=== PATIENT | male | born 1940 | race Caucasian/White ===

== ENCOUNTER → 2016-03-18 | Outpatient (CLI) | payer MEDICARE ==
[~2016-03-18] MED LIST: ASP325T PO; ASP81TEC PO; CALC-656 PO; CHOL10003 PO; CHOL2000 PO; CLON1TAB3 PO; DIGO250T PO; DILT120C PO; DILT360C30 PO; DILT360C36 PO; DULO60CA58 PO; FNT100TD TD; FURO20TA4 PO; HYDR-3816 PO; LISI1TAB PO; LISI20TA PO; MELO-195 PO; METH500T5 PO; METO25TA2 PO; MILN100T PO; MONT10TA24 PO; MULT-608 PO; MULT-72 PO; MULT-974 PO; OMEG-12 PO; OMEG1CAP51 PO; OMEP40CA36 PO; OXYC-188 PO; OXYC-471 PO; POLY119P PO; PRAV10TA PO; PRAV10TA23 PO; TEST200V3 IM; TMSL.4C PO; TMZP15C PO; TRAM50TA2 PO; ZLP10T PO; [UNRECOGNIZED DRUG - CODE] OD
== END ==
LOC: LAB 09:37
PROVIDERS: ATTEND Nurse Practitioner Family
DX: J40 Bronchitis, not specified as acute or chronic (principal)
CPT/HCPCS: 87070; 87077; 87186; 87205

== ENCOUNTER 2016-04-10 12:23 | Outpatient (RCR) | payer MEDICARE | END 2016-07-09 | disposition home or self-care (01) | LOC: LAB 12:23 | PROVIDERS: ATTEND Nurse Practitioner Family | DX: J15.0 Pneumonia due to Klebsiella pneumoniae (principal) | CPT/HCPCS: 87070; 87205 ==

== ENCOUNTER 2016-06-05 14:30 | Outpatient (RCR) | payer MEDICARE | END 2016-06-22 | disposition home or self-care (01) | LOC: PULM 14:30 | PROVIDERS: ATTEND Nurse Practitioner Family | DX: J40 Bronchitis, not specified as acute or chronic (principal); R09.02 Hypoxemia; Z87.891 Personal history of nicotine dependence | CPT/HCPCS: 99211 ==

== ENCOUNTER → 2016-10-06 | Outpatient (CLI) | payer MEDICARE ==
[~2016-10-06] MED LIST changes: +MULT-500 PO; -MULT-72 PO
--- NOTE | 2016-10-06 13:45 | Diagnostic Imaging Report ---
PROCEDURE: CT chest without contrast. TECHNIQUE: Multiple contiguous axial images were obtained through the chest without the use of intravenous contrast. INDICATION: History of right thoracotomy, COPD and hypoxemia. COMPARISON: Comparison made with prior examination from 10/02/2015. FINDINGS: There are diffuse emphysematous changes in both lungs. There is no pleural or pericardial fluid. There is interstitial scarring in the bases. There is no pneumothorax. No discrete nodules are appreciated. There is no pathologically enlarged adenopathy in the chest. There are degenerative changes in the spine. The visualized intra-abdominal structures are unremarkable. IMPRESSION: Severe bullous emphysematous disease with bibasilar interstitial scarring. No discrete pulmonary nodules or masses. Dictated by: Dictated on workstation # [id number]
== END ==
LOC: RAD 10:18
PROVIDERS: ATTEND Nurse Practitioner Family
DX: J43.9 Emphysema, unspecified (principal); J84.9 Interstitial pulmonary disease, unspecified
CPT/HCPCS: 71250

== ENCOUNTER → 2016-12-05 | Outpatient (CLI) | payer MEDICARE | LOC: CARD 09:50 | PROVIDERS: ATTEND Physician Assistant | DX: E11.9 Type 2 diabetes mellitus without complications (principal); I10 Essential (primary) hypertension; E78.2 Mixed hyperlipidemia; I47.2 Ventricular tachycardia; I48.0 Paroxysmal atrial fibrillation | CPT/HCPCS: 93306 ==

== ENCOUNTER 2017-02-03 10:00 | Outpatient (CLI) | payer MEDICARE | END 2017-02-03 10:27 | disposition home or self-care (01) | LOC: SLEEP 10:00 | PROVIDERS: ATTEND Nurse Practitioner Family | DX: G47.33 Obstructive sleep apnea (adult) (pediatric) (principal); R09.02 Hypoxemia ==

== ENCOUNTER → 2017-03-02 | Outpatient (CLI) | payer MEDICARE ==
--- NOTE | 2017-03-02 11:58 | Diagnostic Imaging Report ---
INDICATION: COPD and dyspnea. TIME OF EXAM: 11:42 AM COMPARISON: Comparison is made with prior chest from 04/09/2010. FINDINGS: The heart size is stable. There are changes of median sternotomy. Lungs are hyperinflated consistent with COPD. There are some interstitial parenchymal densities in both bases, acuity indeterminate. There appears to be scarring in the right upper lobe as well. No effusion is seen. There is no pneumothorax. IMPRESSION: Status post median sternotomy. There are interstitial changes in both lungs which may be owing to chronic scarring and COPD. No parenchymal consolidation is seen. Dictated by: Dictated on workstation # [id number]
== END ==
LOC: RAD 11:10
PROVIDERS: ATTEND Nurse Practitioner Family
DX: J44.9 Chronic obstructive pulmonary disease, unspecified (principal); Z98.890 Other specified postprocedural states
CPT/HCPCS: 71046

== ENCOUNTER → 2017-12-21 | Outpatient (CLI) | payer MEDICARE ==
[~2017-12-21] MED LIST changes: +HYDR-34 PO; -HYDR-3816 PO
== END ==
LOC: CARD 09:40
PROVIDERS: ATTEND Physician Assistant
DX: E11.9 Type 2 diabetes mellitus without complications (principal); I10 Essential (primary) hypertension; E78.2 Mixed hyperlipidemia; I47.2 Ventricular tachycardia; I48.0 Paroxysmal atrial fibrillation
CPT/HCPCS: 93306

== ENCOUNTER 2018-01-07 13:20 | Outpatient (RCR) | payer MEDICARE ==
[2017-11-12 13:13] LABS: BASOPHILS % (AUTO) 0 % (0-10); EOSINOPHILS # (AUTO) 0.1 10^3/uL (0.0-0.3); EOSINOPHILS % (AUTO) 1 % (0-10); HEMATOCRIT 52 % (40-54); HEMOGLOBIN 17.8 G/DL (13.3-17.7); LYMPHOCYTES # (AUTO) 1.4 X 10^3 (1.0-4.0); LYMPHOCYTES % (AUTO) 20 % (12-44); MEAN CORPUSCULAR HEMOGLOBIN 31 PG (25-34); MEAN CORPUSCULAR HGB CONC 34 G/DL (32-36); MEAN CORPUSCULAR VOLUME 91 FL (80-99); MEAN PLATELET VOLUME 10.3 FL (7.4-10.4); MONOCYTES # (AUTO) 0.9 X 10^3 (0.0-1.0); MONOCYTES % (AUTO) 13 % (0-12); NEUTROPHILS # (AUTO) 4.4 X 10^3 (1.8-7.8); NEUTROPHILS % (AUTO) 66 % (42-75); PLATELET COUNT 184 10^3/uL (130-400); RED CELL DISTRIBUTION WIDTH 16.1 % (10.0-14.5); WHITE BLOOD COUNT 6.7 10^3/uL (4.3-11.0)
[2017-11-12 13:32] LABS: CALCIUM 9.5 MG/DL (8.5-10.1); CREATININE SERUM 1.2 MG/DL (0.60-1.30); POTASSIUM 4.6 MMOL/L (3.6-5.0); TOTAL PROTEIN 7.2 GM/DL (6.4-8.2)
[2017-12-28 11:17] LABS: BASOPHILS % (AUTO) 1 % (0-10); EOSINOPHILS # (AUTO) 0.1 10^3/uL (0.0-0.3); EOSINOPHILS % (AUTO) 1 % (0-10); HEMATOCRIT 48 % (40-54); HEMOGLOBIN 16.6 G/DL (13.3-17.7); LYMPHOCYTES # (AUTO) 1.2 X 10^3 (1.0-4.0); LYMPHOCYTES % (AUTO) 21 % (12-44); MEAN CORPUSCULAR HEMOGLOBIN 31 PG (25-34); MEAN CORPUSCULAR HGB CONC 34 G/DL (32-36); MEAN CORPUSCULAR VOLUME 88 FL (80-99); MEAN PLATELET VOLUME 10.4 FL (7.4-10.4); MONOCYTES # (AUTO) 0.6 X 10^3 (0.0-1.0); MONOCYTES % (AUTO) 12 % (0-12); NEUTROPHILS # (AUTO) 3.5 X 10^3 (1.8-7.8); NEUTROPHILS % (AUTO) 65 % (42-75); PLATELET COUNT 174 10^3/uL (130-400); RED BLOOD COUNT 5.45 10^6/uL (4.35-5.85); RED CELL DISTRIBUTION WIDTH 14.2 % (10.0-14.5); WHITE BLOOD COUNT 5.4 10^3/uL (4.3-11.0)
[2017-12-28 11:35] LABS: BILIRUBIN,TOTAL 0.6 MG/DL (0.1-1.0); CALCIUM 9.7 MG/DL (8.5-10.1); CREATININE SERUM 1.25 MG/DL (0.60-1.30); POTASSIUM 4.5 MMOL/L (3.6-5.0); TOTAL PROTEIN 7.2 GM/DL (6.4-8.2)
== END 2018-02-10 | disposition home or self-care (01) ==
LOC: ONC 13:20
PROVIDERS: ATTEND Internal Medicine Hematology & Oncology
DX: D58.2 Other hemoglobinopathies (principal); J44.9 Chronic obstructive pulmonary disease, unspecified; I10 Essential (primary) hypertension; I48.0 Paroxysmal atrial fibrillation; E11.9 Type 2 diabetes mellitus without complications; E78.5 Hyperlipidemia, unspecified; M79.7 Fibromyalgia; G47.33 Obstructive sleep apnea (adult) (pediatric); M81.0 Age-related osteoporosis without current pathological fracture; Z79.01 Long term (current) use of anticoagulants; Z79.899 Other long term (current) drug therapy; Z87.891 Personal history of nicotine dependence
CPT/HCPCS: 36415; 80053; 81256; 81270; 82728; 83540; 85025; 99213; 99214

== ENCOUNTER → 2018-02-15 | Outpatient (CLI) | payer MEDICARE ==
[2018-02-15 12:28] LABS: BASOPHILS % (AUTO) 0 % (0-10); EOSINOPHILS % (AUTO) 1 % (0-10); HEMATOCRIT 43 % (40-54); HEMOGLOBIN 14.4 G/DL (13.3-17.7); LYMPHOCYTES # (AUTO) 1.2 X 10^3 (1.0-4.0); LYMPHOCYTES % (AUTO) 27 % (12-44); MEAN CORPUSCULAR HEMOGLOBIN 31 PG (25-34); MEAN CORPUSCULAR HGB CONC 34 G/DL (32-36); MEAN CORPUSCULAR VOLUME 91 FL (80-99); MEAN PLATELET VOLUME 10.2 FL (7.4-10.4); MONOCYTES # (AUTO) 0.7 X 10^3 (0.0-1.0); MONOCYTES % (AUTO) 15 % (0-12); NEUTROPHILS # (AUTO) 2.7 X 10^3 (1.8-7.8); NEUTROPHILS % (AUTO) 58 % (42-75); PLATELET COUNT 204 10^3/uL (130-400); RED BLOOD COUNT 4.68 10^6/uL (4.35-5.85); RED CELL DISTRIBUTION WIDTH 15.3 % (10.0-14.5); WHITE BLOOD COUNT 4.7 10^3/uL (4.3-11.0)
== END ==
LOC: LAB 12:06
PROVIDERS: ATTEND Family Medicine
DX: E83.119 Hemochromatosis, unspecified (principal); E29.1 Testicular hypofunction
CPT/HCPCS: 36415; 82728; 83540; 84403; 85025

== ENCOUNTER 2018-07-14 23:06 | Emergency (ER) | payer MEDICARE ==
[~2018-07-14] VITALS: Ht 177.8 cm; Wt 109.8 kg
--- OUTSIDE RECORDS SUMMARY | 2018-07-14 23:12 | XMS REPORT ---
Author Author [facility] Medical Staff Organization [place] [facility] Address [address] [place], [place] [address] Phone [phone] Summary purpose TRANSITION OF CARE AUTO GENERATION Chief Complaint and Reason for Visit Admit Diagnosis 1 LUMBOSACRAL NEURITIS NOS Problem list No authorized problems tracked for continuity of care are available for this vis it. Encounters No authorized problems tracked for encounter diagnoses are available for this vi sit. Medications No medications recorded for this patient visit Allergies, adverse reactions, alerts Allergen Category Ingredient Status Reaction Severity Onset Demerol Drug Allergy Demerol Confirmed or Verified hypotension, "gets very sick" Moderate Adult Demerol Drug Allergy Meperidine Confirmed or Verified hypotension, "gets very sick" Moderate Adult Shellfish Drug Allergy Shellfish Confirmed or Verified Hives Severe Immunizations No immunizations recorded for this patient visit Relevant diagnostic tests and/or laboratory data RESULTS Radiology Results [id number]:40:00 MRI L-SPINE W/O CONT PACs Image DATE OF EXAM: 2014 MRI 0085-MRI L SPINE WO CONTRAST : RADIOLOGY REPORT DATE OF SERVICE: 10/18/14 HISTORY: Worsening low back pain with left lower extremity radiculopathy NONCONTRAST MAGNETIC RESONANCE IMAGING LUMBAR [id number] HOURS Imaging of the lumbar spine was performed in the sagittal and axial planes. No contrast was administered. Comparison is made with the prior study dated 06/12/2014. The lumbar vertebrae are normal in height. There is unchanged L5-S1 spondylolisthesis measuring 10 mm. There is prior laminectomy at L5-S1. There is no pseudomeningocele. There appears to be dorsal fusion at L5-S1. There are no lumbar marrow lesions. The conus medullaris is normal and terminates at the caudal aspect of L1. The paraspinous soft tissues are normal. At T12-L1, there is mild degenerative disc narrowing and minimal disc bulging without focal herniation or protrusion. The canal is well maintained. At L1-L2, there is disc narrowing and mild generalized posterior bulging. There is no canal stenosis. There is mild degenerative facet change without foraminal narrowing. At L2-L3, there is mild degenerative disc desiccation without posterior disc bulging or herniation. The canal is normal. There is mild degenerative facet arthrosis. The foramina and nerve roots are normal. At L3-L4, there is mild posterolateral disc bulging bilaterally. There is no nerve root effacement. There is no canal stenosis. Mild degenerative facet arthrosis is present. The foramina are normal bilaterally. At L4-L5, there is disc narrowing and desiccation. There is minimal posterior disc bulging without focal herniation. There is severe facet arthrosis. There is bilateral foraminal stenosis. At L5-S1, there is marked narrowing of the disc space. Previously mentioned L5-S1 anterolisthesis is evident. There is bilateral foraminal stenosis. IMPRESSION: 1. Bilateral foraminal stenosis at L4-L5 and L5-S1. 2. Stable L5-S1 spondylolisthesis status post dorsal laminectomy and fusion. 3. Degenerative disc bulge at L1-L2 without definite herniation or nerve root effacement. 4. Stable appearance when compared with 06/12/2014. Toy Skinner MD MWD/nh10/18/2014 11:05:00 / 10/18/2014 11:14:46 cc:Dr. Toy Mcgill This document has been electronically Signed by: On: DATE OF EXAM: 2014 MRI 0085-MRI L SPINE WO CONTRAST : RADIOLOGY REPORT DATE OF SERVICE: 10/18/14 HISTORY: Worsening low back pain with left lower extremity radiculopathy NONCONTRAST MAGNETIC RESONANCE IMAGING LUMBAR [id number] HOURS Imaging of the lumbar spine was performed in the sagittal and axial planes. No contrast was administered. Comparison is made with the prior study dated 06/12/2014. The lumbar vertebrae are normal in height. There is unchanged L5-S1 spondylolisthesis measuring 10 mm. There is prior laminectomy at L5-S1. There is no pseudomeningocele. There appears to be dorsal fusion at L5-S1. There are no lumbar marrow lesions. The conus medullaris is normal and terminates at the caudal aspect of L1. The paraspinous soft tissues are normal. At T12-L1, there is mild degenerative disc narrowing and minimal disc bulging without focal herniation or protrusion. The canal is well maintained. At L1-L2, there is disc narrowing and mild generalized posterior bulging. There is no canal stenosis. There is mild degenerative facet change without foraminal narrowing. At L2-L3, there is mild degenerative disc desiccation without posterior disc bulging or herniation. The canal is normal. There is mild degenerative facet arthrosis. The foramina and nerve roots are normal. At L3-L4, there is mild posterolateral disc bulging bilaterally. There is no nerve root effacement. There is no canal stenosis. Mild degenerative facet arthrosis is present. The foramina are normal bilaterally. At L4-L5, there is disc narrowing and desiccation. There is minimal posterior disc bulging without focal herniation. There is severe facet arthrosis. There is bilateral foraminal stenosis. At L5-S1, there is marked narrowing of the disc space. Previously mentioned L5-S1 anterolisthesis is evident. There is bilateral foraminal stenosis. IMPRESSION: 1. Bilateral foraminal stenosis at L4-L5 and L5-S1. 2. Stable L5-S1 spondylolisthesis status post dorsal laminectomy and fusion. 3. Degenerative disc bulge at L1-L2 without definite herniation or nerve root effacement. 4. Stable appearance when compared with 06/12/2014. Toy Skinner MD MWJeff/ca10/18/2014 11:05:00 / 10/18/2014 11:14:46 cc:Dr. Toy Mcgill This document has been electronically Signed by: TOY SKINNER On: 20141:40P Result Amended on 2014-10-18 at 13:40:18. Previous status was VT. History of procedures Procedure Code Code Type Description Date Performed Performing Physician 31413 CPT-4 MRI LUMBAR SPINE W/O DYE 10-18-2014 TOY MCGILL Functional status No functional or cognitive status observations are available for this visit. Vital signs No authorized vital signs are available for this visit. Social history No Social History or smoking status observations were recorded for this visit. ( Unknown if ever smoked.) Treatment Plan No treatment plan text is available for this visit. Hospital discharge instructions No discharge instruction text is available for this visit.
--- OUTSIDE RECORDS SUMMARY | 2018-07-14 23:12 | XMS REPORT ---
Author Author [facility] Medical Staff Organization [facility] [facility] [employer] [facility] Address [address] [place] [id number] Phone [phone] Care Team Providers Care Shoeblack Name Role Phone TRUNG BLANCAS, FITO PP [phone] Summary purpose TRANSITION OF CARE AUTO GENERATION Chief Complaint and Reason for Visit No authorized Reason for Visit (Admitting Diagnosis) is available for this visit . Problem list No authorized problems tracked for [...] visit Relevant diagnostic tests and/or laboratory data No authorized results are available for this patient visit History of procedures Procedure Code Code Type Description Date Performed Performing Physician 62033 CPT-4 EMERGENCY DEPT VISIT 03-08-2015 MARCIE VAZQUEZ 70026 CPT-4 EMERGENCY DEPT VISIT 03-08-2015 MARCIE VAZQUEZ Functional status Functional Status Finding Observation Time Abdomen Appearance round 58-39-169088:40 Abdomen soft 47-86-189517:40 Urination normal 40-15-414507:40 Quality sym/unlabored 76-86-360099:40 Cough absent :40 Airway natural :40 Oxygen no 96-51-477823:18 Temp >100.4 no :40 Temp <96.8 no :40 Chills with rigors no :40 HR > 90bpm no :40 Respirations > 20 no :40 Systolic <90 no :40 headache stiff neck no :40 Nursing Note Pt is discharged to home in good condition with family. :18 Vital signs Type Value Date Respiration Rate 18breaths per minute : Pulse 76beats per minute :18 Oxygen Saturation 97% :18 BP Systolic 145mmHg :18 BP Diastolic 80mmHg :18 Temperature 97F :18 Social history Type Value Smoking Status FORMER SMOKER Treatment Plan No treatment plan text is available for this visit. Hospital discharge instructions Dismissal Condition good Disposition on DC home DC Inst/Educ Give yes PNE Vac 2015 Flu Vac 2015 Tetanus Vac unknown
--- OUTSIDE RECORDS SUMMARY | 2018-07-14 23:12 | XMS REPORT ---
Author Author [facility] Medical Staff Organization [facility] Address [address] [place] [id number] Phone [phone] Care Team Providers Care Format Proofreader Name Role Phone TRUNG BLANCAS, FITO PP [phone] Summary purpose TRANSITION OF CARE AUTO GENERATION Chief Complaint and Reason for Visit Admit Diagnosis 1 PHYSICAL THERAPY NEC Problem list No authorized problems tracked for [...] Code Type Description Date Performed Performing Physician 12038 CPT-4 THERAPEUTIC EXERCISES 09-22-2014 FITO NINO 55591 CPT-4 MANUAL THERAPY 09-22-2014 FITO NINO Functional status No functional or cognitive status [...]
--- OUTSIDE RECORDS SUMMARY | 2018-07-14 23:12 | XMS REPORT ---
Author Author [facility] Medical Staff Organization [facility] Address [address] [place], [place] [address] Phone [phone] Care Team Providers Care Custodial Engineer Name Role Phone FITO NINO MD PP [phone] Summary purpose TRANSITION OF CARE AUTO GENERATION Chief Complaint and Reason for Visit Admit Diagnosis 1 SOLITARY PULMON NODULE Problem list No authorized problems tracked for [...] for this patient visit History of procedures No procedures recorded for this patient visit. Functional status No functional or cognitive status [...]
--- OUTSIDE RECORDS SUMMARY | 2018-07-14 23:12 | XMS REPORT ---
Author Author [facility] Medical Staff Organization [place] [facility] Address [address] [place], [place] [address] Phone [phone] Summary purpose TRANSITION OF CARE AUTO GENERATION [...] Relevant diagnostic tests and/or laboratory data RESULTS Therapeutic Drug Monitoring :00:00 Result Normal Range Units Vancomycin Trough 14.3 10-22 ug/ml Chemistry :00:00 Result Normal Range Units Sodium 137 134-145 mEq/l Potassium 4.4 3.5-5.1 mEq/l Chloride 103 98-107 mEq/l CO2 27.7 22-28 mEq/l Glucose H 118 70-105 mg/dl BUN 16 7-18 mg/dl Creatinine 1.00 0.6-1.3 mg/dl Calcium 8.5 8.4-10.2 mg/dl Osmolality L 276.1 280-300 mOsm/L Anion GAP L 6.3 8-16 BUN/Creatinine Ratio 16.0 10-20 Estimated GFR 73 >=60 mL/min/1.7 C-Reactive Protein 0.5 0-1 mg/dl Hematology :00:00 Result Normal Range Units WBC 5.7 4.8-10.8 103/uL RBC L 4.2 4.7-6.1 106/uL HGB L 12.8 13.0-18.0 g/dl HCT L 39.8 41.9-52.0 % MCV H 94.8 80-94 FL MCH 30.5 27-31 pg MCHC L 32.2 33-37 g/dl RDW 15.1 11.5-15.5 % PLT 243 130-400 103/uL MPV 9.8 7.3-10.4 FL Neutro % 67.7 40-70 % Lymph % L 14.0 20-40 % [place] % H 11.1 0-10.0 % Eos % 5.3 0-7.0 % Baso % 1.4 0-2 % Neutro # 3.8 1.5-7.5 103/uL Lymph # L 0.8 0.9-4.0 103/uL [place] # 0.6 0-0.8 103/uL Eos # 0.3 0-0.6 103/uL Baso # 0.1 0-0.1 103/uL Hematology - Other (Misc) [id number]:00:00 Result Normal Range Units Sed Rate 15 0-20 Radiology Results :00:00 Result Normal Range Units MPV 9.8 7.3-10.4 FL History of procedures No procedures recorded for [...]
--- OUTSIDE RECORDS SUMMARY | 2018-07-14 23:12 | XMS REPORT ---
Author Author [facility] Medical Staff Organization [place] [facility] Address [address] [place], [place] [address] Phone [phone] Summary purpose TRANSITION OF CARE AUTO GENERATION [...] Relevant diagnostic tests and/or laboratory data RESULTS Chemistry [id number]:20:00 Result Normal Range Units Sodium 140 134-145 mEq/l Potassium 4.1 3.5-5.1 mEq/l Chloride 107 98-107 mEq/l CO2 26.1 22-28 mEq/l Glucose H 155 70-105 mg/dl BUN H 19 7-18 mg/dl Creatinine 1.03 0.6-1.3 mg/dl Calcium 8.5 8.4-10.2 mg/dl Osmolality 284.8 280-300 mOsm/L Anion GAP L 6.9 8-16 BUN/Creatinine Ratio 18.4 10-20 Estimated GFR 71 >=60 mL/min/1.7 C-Reactive Protein H 1.8 0-1 mg/dl Hematology :20:00 Result Normal Range Units WBC 6.9 4.8-10.8 103/uL RBC L 4.0 4.7-6.1 106/uL HGB L 12.2 13.0-18.0 g/dl HCT L 38.4 41.9-52.0 % MCV H 95.0 80-94 FL MCH 30.2 27-31 pg MCHC L 31.8 33-37 g/dl RDW 15.1 11.5-15.5 % PLT 333 130-400 103/uL MPV 9.5 7.3-10.4 FL Neutro % H 72.5 40-70 % Lymph % L 12.8 20-40 % [place] % 8.6 0-10.0 % Eos % 3.3 0-7.0 % Baso % 1.5 0-2 % Neutro # 5.0 1.5-7.5 103/uL Lymph # 0.9 0.9-4.0 103/uL [place] # 0.6 0-0.8 103/uL Eos # 0.2 0-0.6 103/uL Baso # 0.1 0-0.1 103/uL Hematology - Other ([facility] [place] [id number]:20:00 Result Normal Range Units Sed Rate H 24 0-20 Radiology Results [id number]:20:00 Result Normal Range Units MPV 9.5 7.3-10.4 FL History of procedures No procedures [...]
--- OUTSIDE RECORDS SUMMARY | 2018-07-14 23:12 | XMS REPORT ---
Author Author [facility] Medical Staff Organization [place] [facility] Address [address] [id number] Phone [phone] Care Team Providers Care Chlorinator Name Role Phone TRUNG BLANCAS, FITO PP [phone] Summary purpose TRANSITION OF CARE AUTO GENERATION [...] diagnostic tests and/or laboratory data RESULTS Chemistry [id number]:25:00 Result Normal Range Units Creatinine 0.97 0.6-1.3 mg/dl Estimated GFR 76 >=60 mL/min/1.7 Reference Lab ([facility]) [id number]:25:00 Result Normal Range Units D-Dimer H@ 2100 0-400 ng/ml Hematology - Other (Misc) [id number]:25:00 Result Normal Range Units Sed Rate 8 0-20 Radiology Results [id number]:55:00 DUP MAXWELL UNILATERAL PACs Image DATE OF EXAM: Oct 03 2014 [id number] VENOUS DUPLEX-UNILATERAL- LEFT: RADIOLOGY REPORT DATE OF SERVICE: 10/03/14 HISTORY: Left lower extremity swelling, knee pain, rule out DVT LEFT LOWER EXTREMITY VENOUS DOPPLER 1342 HOURS The lower extremity veins were evaluated with high resolution real time imaging, pulsed and color flow Doppler analysis. There is normal spontaneous phasic flow in the common femoral, femoral, popliteal, posterior tibial, and greater saphenous veins. There is normal augmentation of flow with distal compression. No thrombi are noted. IMPRESSION: Normal lower extremity venous Doppler. MD EMRE Jaimes/sd10/03/2014 14:18: / 10/03/2014 14:22:49 cc:Dr. Fito Reza This document has been electronically Signed by: On: DATE OF EXAM: Oct 03 2014 [id number] VENOUS DUPLEX-UNILATERAL- LEFT: RADIOLOGY REPORT DATE OF SERVICE: 10/03/14 HISTORY: Left lower extremity swelling, knee pain, rule out DVT LEFT LOWER EXTREMITY VENOUS DOPPLER 1342 HOURS The lower extremity veins were evaluated with high resolution real time imaging, pulsed and color flow Doppler analysis. There is normal spontaneous phasic flow in the common femoral, femoral, popliteal, posterior tibial, and greater saphenous veins. There is normal augmentation of flow with distal compression. No thrombi are noted. IMPRESSION: Normal lower extremity venous Doppler. MD EMRE Jaimes/sd10/03/2014 14:18: / 10/03/2014 14:22:49 cc:Dr. Fito Reza This document has been electronically Signed by: LORETTA ALCANTAR On: Oct 03 20142:55P Result Amended on 2014-10-03 at 14:55:50. Previous status was ID. History of procedures No procedures recorded for [...]
--- OUTSIDE RECORDS SUMMARY | 2018-07-14 23:12 | XMS REPORT ---
Author Author [facility] Medical Staff Organization [place] [facility] Address [address] [place] [id number] Phone [phone] Summary purpose TRANSITION OF CARE AUTO GENERATION [...] and/or laboratory data RESULTS Therapeutic Drug Monitoring [id number]:55:00 Result Normal Range Units Vancomycin Trough 16.0 10-22 ug/ml Chemistry [id number]:55:00 Result Normal Range Units Sodium 139 134-145 mEq/l Potassium 4.1 3.5-5.1 mEq/l Chloride 105 98-107 mEq/l CO2 24.3 22-28 mEq/l Glucose H 109 70-105 mg/dl BUN H 19 7-18 mg/dl Creatinine 1.03 0.6-1.3 mg/dl Calcium 8.6 8.4-10.2 mg/dl Osmolality 280.4 280-300 mOsm/L Anion GAP 9.7 8-16 BUN/Creatinine Ratio 18.4 10-20 Estimated GFR 71 >=60 mL/min/1.7 C-Reactive Protein H 1.1 0-1 mg/dl Hematology [id number]:55:00 Result Normal Range Units WBC 6.2 4.8-10.8 103/uL RBC L 4.4 4.7-6.1 106/uL HGB 13.2 13.0-18.0 g/dl HCT L 40.4 41.9-52.0 % MCV 92.9 80-94 FL MCH 30.3 27-31 pg MCHC L 32.7 33-37 g/dl RDW 14.7 11.5-15.5 % PLT 180 130-400 103/uL MPV H 10.6 7.3-10.4 FL Neutro % 64.3 40-70 % Lymph % L 14.1 20-40 % [place] % H 12.8 0-10.0 % Eos % H 7.2 0-7.0 % Baso % 1.1 0-2 % Neutro # 4.0 1.5-7.5 103/uL Lymph # 0.9 0.9-4.0 103/uL [place] # 0.8 0-0.8 103/uL Eos # 0.5 0-0.6 103/uL Baso # 0.1 0-0.1 103/uL Hematology - Other (Mis) [id number]:55:00 Result Normal Range Units Sed Rate 10 0-20 Radiology Results [id number]:55:00 Result Normal Range Units MPV H 10.6 7.3-10.4 FL History of procedures No procedures [...]
--- OUTSIDE RECORDS SUMMARY | 2018-07-14 23:13 | XMS REPORT ---
Author Author [facility] Medical Staff Organization [place] [employer] Address [address] [place], [place] [address] Phone [phone] Summary purpose TRANSITION OF CARE AUTO GENERATION [...] and/or laboratory data RESULTS Therapeutic Drug Monitoring [id number]:40:00 Result Normal Range Units Vancomycin Trough 12.2 10-22 ug/ml Chemistry [id number]:40:00 Result Normal Range Units Sodium 138 134-145 mEq/l Potassium 4.3 3.5-5.1 mEq/l Chloride 105 98-107 mEq/l CO2 25.0 22-28 mEq/l Glucose H 132 70-105 mg/dl BUN 18 7-18 mg/dl Creatinine 0.95 0.6-1.3 mg/dl Calcium 8.6 8.4-10.2 mg/dl Osmolality L 279.4 280-300 mOsm/L Anion GAP 8.0 8-16 BUN/Creatinine Ratio 18.9 10-20 Estimated GFR 78 >=60 mL/min/1.7 C-Reactive Protein H 7.4 0-1 mg/dl Hematology :40:00 Result Normal Range Units WBC 8.6 4.8-10.8 103/uL RBC L 4.1 4.7-6.1 106/uL HGB L 12.3 13.0-18.0 g/dl HCT L 38.3 41.9-52.0 % MCV H 94.6 80-94 FL MCH 30.4 27-31 pg MCHC L 32.1 33-37 g/dl RDW 15.4 11.5-15.5 % PLT 343 130-400 103/uL MPV 9.6 7.3-10.4 FL Neutro % H 74.4 40-70 % Lymph % L 11.4 20-40 % [place] % 9.1 0-10.0 % Eos % 2.9 0-7.0 % Baso % 1.3 0-2 % Neutro # 6.4 1.5-7.5 103/uL Lymph # 1.0 0.9-4.0 103/uL [place] # 0.8 0-0.8 103/uL Eos # 0.3 0-0.6 103/uL Baso # 0.1 0-0.1 103/uL Hematology - Other (Misc) [id number]:40:00 Result Normal Range Units Sed Rate H 28 0-20 Radiology Results [id number]:40:00 Result Normal Range Units MPV 9.6 7.3-10.4 FL History of procedures No procedures [...]
--- OUTSIDE RECORDS SUMMARY | 2018-07-14 23:13 | XMS REPORT ---
Author Author [email or web address] Medical Staff Organization [facility] Address [address] [place], [place] [address] Phone [phone] Summary purpose TRANSITION OF CARE AUTO GENERATION [...]
--- OUTSIDE RECORDS SUMMARY | 2018-07-14 23:13 | XMS REPORT ---
Author Author [facility] Medical Staff Organization [facility] Address [address] [place] [id number] Phone [phone] Care Team Providers Care Immigration Officer Name Role Phone TRUNG BLANCAS, FITO PP [phone] Summary purpose TRANSITION OF CARE AUTO GENERATION [...] Code Type Description Date Performed Performing Physician 44804 CPT-4 THERAPEUTIC EXERCISES 09-22-2014 FITO NINO 82837 CPT-4 MANUAL THERAPY 09-22-2014 FITO NINO Functional [...]
--- OUTSIDE RECORDS SUMMARY | 2018-07-14 23:13 | XMS REPORT ---
Author Author [facility] Medical Staff Organization [facility] Address [address] [place], [place] [address] Phone [phone] Summary purpose TRANSITION OF CARE AUTO GENERATION [...] and/or laboratory data RESULTS Therapeutic Drug Monitoring :30:00 Result Normal Range Units Vancomycin Trough 17.7 10-22 ug/ml Chemistry :30:00 Result Normal Range Units Sodium 139 134-145 mEq/l Potassium 3.5 3.5-5.1 mEq/l Chloride 105 98-107 mEq/l CO2 23.1 22-28 mEq/l Glucose H 108 70-105 mg/dl BUN 15 7-18 mg/dl Creatinine 0.99 0.6-1.3 mg/dl Calcium 9.0 8.4-10.2 mg/dl Osmolality L 278.9 280-300 mOsm/L Anion GAP 10.9 8-16 BUN/Creatinine Ratio 15.2 10-20 Estimated GFR 74 >=60 mL/min/1.7 C-Reactive Protein H 2.3 0-1 mg/dl Hematology :30:00 Result Normal Range Units WBC 5.3 4.8-10.8 103/uL RBC L 4.5 4.7-6.1 106/uL HGB 13.6 13.0-18.0 g/dl HCT L 41.0 41.9-52.0 % MCV 91.9 80-94 FL MCH 30.5 27-31 pg MCHC 33.2 33-37 g/dl RDW 14.6 11.5-15.5 % PLT 199 130-400 103/uL MPV 10.0 7.3-10.4 FL Neutro % 65.0 40-70 % Lymph % L 15.5 20-40 % [place] % H 12.7 0-10.0 % Eos % 5.5 0-7.0 % Baso % 1.1 0-2 % Neutro # 3.4 1.5-7.5 103/uL Lymph # L 0.8 0.9-4.0 103/uL [place] # 0.7 0-0.8 103/uL Eos # 0.3 0-0.6 103/uL Baso # 0.1 0-0.1 103/uL Hematology - Other (Mis) [id number]:30:00 Result Normal Range Units Sed Rate 18 0-20 Radiology Results [id number]:30:00 Result Normal Range Units MPV 10.0 7.3-10.4 FL History of procedures No procedures [...]
--- OUTSIDE RECORDS SUMMARY | 2018-07-14 23:13 | XMS REPORT ---
Author Author [facility] Medical Staff Organization [facility] Address [address] [place], [place] [address] Phone [phone] Care Team Providers Care Mechanical Commissioning Engineer Name Role Phone TRUNG BLANCAS, FITO PP [phone] Summary purpose TRANSITION OF CARE AUTO GENERATION [...] recorded for this patient visit. Functional status Functional Status Finding Observation Time Abdomen Appearance round :40 Abdomen soft :40 Urination normal :40 Quality sym/unlabored :40 Cough absent :40 Airway natural :40 Oxygen no :18 Temp >100.4 no :40 Temp <96.8 no :40 Chills with rigors no :40 HR > 90bpm no :40 Respirations > 20 no :40 Systolic <90 no :40 headache stiff neck no :40 Nursing Note Pt is discharged to home in good condition with family. :18 Vital signs Type Value Date Respiration Rate 18breaths per minute :18 Pulse 76beats per minute :18 Oxygen Saturation [...]
--- OUTSIDE RECORDS SUMMARY | 2018-07-14 23:13 | XMS REPORT ---
Author Author [facility] Medical Staff Organization [employer] [facility] Address [address] [place] [id number] Phone [phone] Care Team Providers Care Consumer Loan Underwriter Name Role Phone TRUNG BLANCAS, FITO PP [phone] Summary purpose TRANSITION OF CARE AUTO GENERATION [...]
--- OUTSIDE RECORDS SUMMARY | 2018-07-14 23:13 | XMS REPORT ---
Author Author [facility] Medical Staff Organization [facility] Address [address] [place], [place] [address] Phone [phone] Summary purpose TRANSITION OF CARE AUTO GENERATION [...] and/or laboratory data RESULTS Therapeutic Drug Monitoring [id number]:10:00 Result Normal Range Units Vancomycin Trough 14.4 10-22 ug/ml Chemistry [id number]:10:00 Result Normal Range Units Sodium 139 134-145 mEq/l Potassium 4.2 3.5-5.1 mEq/l Chloride 104 98-107 mEq/l CO2 26.1 22-28 mEq/l Glucose 96 70-105 mg/dl BUN 17 7-18 mg/dl Creatinine 0.93 0.6-1.3 mg/dl Calcium 8.4 8.4-10.2 mg/dl TP - Total Protein 6.3 6.0-8.3 g/dl Albumin L 2.9 3.5-5 g/dl Bilirubin - Total 0.6 0.1-1.0 mg/dl AST 34 10-42 IU/L ALT 27 12-65 IU/L ALP 102 39-107 IU/L Osmolality L 278.9 280-300 mOsm/L Albumin/Globulin Ratio 0.9 0-8 Anion GAP 8.9 8-16 BUN/Creatinine Ratio 18.3 10-20 Estimated GFR 80 >=60 mL/min/1.7 C-Reactive Protein H 1.6 0-1 mg/dl Hematology [id number]:10:00 Result Normal Range Units WBC 7.3 4.8-10.8 103/uL RBC L 4.0 4.7-6.1 106/uL HGB L 12.2 13.0-18.0 g/dl HCT L 37.8 41.9-52.0 % MCV H 94.3 80-94 FL MCH 30.4 27-31 pg MCHC L 32.3 33-37 g/dl RDW 14.9 11.5-15.5 % PLT 375 130-400 103/uL MPV 9.4 7.3-10.4 FL Neutro % H 72.9 40-70 % Lymph % L 12.1 20-40 % [place] % 9.4 0-10.0 % Eos % 3.7 0-7.0 % Baso % 1.2 0-2 % Neutro # 5.3 1.5-7.5 103/uL Lymph # 0.9 0.9-4.0 103/uL [place] # 0.7 0-0.8 103/uL Eos # 0.3 0-0.6 103/uL Baso # 0.1 0-0.1 103/uL Hematology - Other (Misc) [id number]:10:00 Result Normal Range Units Sed Rate H 37 0-20 Radiology Results [id number]:10:00 Result Normal Range Units MPV 9.4 7.3-10.4 FL History of procedures Procedure Code Code Type Description Date Performed Performing Physician 09889 CPT-4 COMPREHEN METABOLIC PANEL 02-01-2015 [facility] 48692 CPT-4 ASSAY OF VANCOMYCIN 02-01-2015 [facility] 31876 CPT-4 COMPLETE CBC W/AUTO DIFF WBC 02-01-2015 [facility] GARZA 00499 CPT-4 RBC SED RATE, NONAUTOMATED 02-01-2015 [facility] GARZA 44613 CPT-4 C-REACTIVE PROTEIN 02-01-2015 [facility] Functional status No functional or cognitive status [...]
--- OUTSIDE RECORDS SUMMARY | 2018-07-14 23:13 | XMS REPORT ---
Author Author [facility] Medical Staff Organization [facility] Address [address] [id number] Phone [phone] Summary purpose TRANSITION OF CARE AUTO GENERATION [...] Code Type Description Date Performed Performing Physician 45218 CPT-4 PT EVALUATION 05-16-2015 [facility]IR[facility] SEWELL 09382 CPT-4 THERAPEUTIC EXERCISES 05-16-2015 HIR[facility] SEWELL 52438 CPT-4 THERAPEUTIC EXERCISES 05-18-2015 NON STAFF G8978 CPT-4 MOBILITY CURRENT STATUS 05-16-2015 HIRAL SEWELL G8979 CPT-4 MOBILITY GOAL STATUS 05-16-2015 HIRAL SEWELL Functional status No functional or cognitive status [...]
--- OUTSIDE RECORDS SUMMARY | 2018-07-14 23:13 | XMS REPORT ---
Author Author [facility] Medical Staff Organization [facility] Address [address] [place] [id number] Phone [phone] Summary purpose TRANSITION OF CARE AUTO GENERATION [...] and/or laboratory data RESULTS Therapeutic Drug Monitoring [id number]:55:00 Result Normal Range Units Vancomycin Trough 16.0 10-22 ug/ml Chemistry [id number]:55:00 Result Normal Range Units Sodium 139 134-145 mEq/l Potassium 4.1 3.5-5.1 mEq/l Chloride 105 98-107 mEq/l CO2 24.3 22-28 mEq/l Glucose H 109 70-105 mg/dl BUN H 19 7-18 mg/dl Creatinine 1.03 0.6-1.3 mg/dl Calcium 8.6 8.4-10.2 mg/dl Osmolality 280.4 280-300 mOsm/L Anion GAP 9.7 8-16 BUN/Creatinine Ratio 18.4 10-20 Estimated GFR 71 >=60 mL/min/1.7 C-Reactive Protein H 1.1 0-1 mg/dl Hematology [id number]:55:00 Result Normal Range Units WBC 6.2 4.8-10.8 103/uL RBC L 4.4 4.7-6.1 106/uL HGB 13.2 13.0-18.0 g/dl HCT L 40.4 41.9-52.0 % MCV 92.9 80-94 FL MCH 30.3 27-31 pg MCHC L 32.7 33-37 g/dl RDW 14.7 11.5-15.5 % PLT 180 130-400 103/uL MPV H 10.6 7.3-10.4 FL Neutro % 64.3 40-70 % Lymph % L 14.1 20-40 % [place] % H 12.8 0-10.0 % Eos % H 7.2 0-7.0 % Baso % 1.1 0-2 % Neutro # 4.0 1.5-7.5 103/uL Lymph # 0.9 0.9-4.0 103/uL [place] # 0.8 0-0.8 103/uL Eos # 0.5 0-0.6 103/uL Baso # 0.1 0-0.1 103/uL Hematology - Other (Misc) [id number]:55:00 Result Normal Range Units Sed Rate 10 0-20 Radiology Results [id number]:55:00 Result Normal Range Units MPV H 10.6 7.3-10.4 FL History of procedures Procedure Code Code Type Description Date Performed Performing Physician 48834 CPT-4 METABOLIC PANEL TOTAL CA 02-15-2015 [facility] 60022 CPT-4 ASSAY OF VANCOMYCIN 02-15-2015 [facility] G[facility] 64937 CPT-4 COMPLETE CBC W/AUTO DIFF WBC 02-15-2015 [facility] G[facility] 95604 CPT-4 RBC SED RATE, NONAUTOMATED 02-15-2015 [facility] 96088 CPT-4 C-REACTIVE PROTEIN 02-15-2015 [facility] Functional status No functional or cognitive status [...]
--- OUTSIDE RECORDS SUMMARY | 2018-07-14 23:13 | XMS REPORT ---
Author Author [facility] Medical Staff Organization [facility] Address [address] [place], [place] [address] Phone [phone] Summary purpose TRANSITION OF CARE AUTO GENERATION [...] diagnostic tests and/or laboratory data RESULTS Chemistry [id number]:25:00 Result Normal Range Units Sodium 137 134-145 mEq/l Potassium 4.0 3.5-5.1 mEq/l Chloride 103 98-107 mEq/l CO2 L 21.7 22-28 mEq/l Glucose 91 70-105 mg/dl BUN 13 7-18 mg/dl Creatinine 1.03 0.6-1.3 mg/dl Calcium 8.6 8.4-10.2 mg/dl TP - Total Protein 7.3 6.0-8.3 g/dl Albumin 3.5 3.5-5 g/dl Bilirubin - Total 0.7 0.1-1.0 mg/dl AST 21 10-42 IU/L ALT 21 12-65 IU/L ALP H 140 39-107 IU/L Osmolality L 273.5 280-300 mOsm/L Albumin/Globulin Ratio 0.9 0-8 Anion GAP 12.3 8-16 BUN/Creatinine Ratio 12.6 10-20 Estimated GFR 71 >=60 mL/min/1.7 Thyroid Testing :25:00 Result Normal Range Units TSH 3.36 0.36-3.74 uIU/mL History of procedures No procedures recorded for [...]
--- OUTSIDE RECORDS SUMMARY | 2018-07-14 23:13 | XMS REPORT ---
Author Author [facility] Medical Staff Organization [place] [facility] Address [address] [id number] Phone [phone] Care Team Providers Care Coal Conveyor Operator Name Role Phone TRUNG BLANCAS, FITO PP [phone] Summary purpose TRANSITION OF CARE AUTO GENERATION [...] diagnostic tests and/or laboratory data RESULTS Chemistry [id number]:18:00 Result Normal Range Units Sodium 138 134-145 mEq/l Potassium 4.1 3.5-5.1 mEq/l Chloride 103 98-107 mEq/l CO2 24.1 22-28 mEq/l Glucose 89 70-105 mg/dl BUN H 19 7-18 mg/dl Creatinine H 1.48 0.6-1.3 mg/dl Calcium 9.2 8.4-10.2 mg/dl Osmolality L 277.4 280-300 mOsm/L Anion GAP 10.9 8-16 BUN/Creatinine Ratio 12.8 10-20 Estimated GFR L 47 >=60 mL/min/1.7 C-Reactive Protein H 1.8 0-1 mg/dl Hematology [id number]:18:00 Result Normal Range Units WBC 5.7 4.8-10.8 103/uL RBC L 4.6 4.7-6.1 106/uL HGB 14.2 13.0-18.0 g/dl HCT 42.0 41.9-52.0 % MCV 90.5 80-94 FL MCH 30.6 27-31 pg MCHC 33.8 33-37 g/dl RDW 14.4 11.5-15.5 % PLT 248 130-400 103/uL MPV 10.1 7.3-10.4 FL Neutro % 62.8 40-70 % Lymph % L 19.1 20-40 % [place] % H 13.3 0-10.0 % Eos % 2.8 0-7.0 % Baso % 1.6 0-2 % Neutro # 3.6 1.5-7.5 103/uL Lymph # 1.1 0.9-4.0 103/uL [place] # 0.8 0-0.8 103/uL Eos # 0.2 0-0.6 103/uL Baso # 0.1 0-0.1 103/uL H[place]ology - [place] [id number]:18:00 Result Normal Range Units Sed Rate 20 0-20 Radiology Results [id number]:18:00 Result Normal Range Units MPV 10.1 7.3-10.4 FL History of procedures No procedures [...]
--- OUTSIDE RECORDS SUMMARY | 2018-07-14 23:13 | XMS REPORT ---
Author Author [email or web address] Medical Staff Organization [facility] Address [address] [place] [id number] Phone [phone] Care Team Providers Care Ribber Name Role Phone TRUNG BLANCAS, FITO PP [phone] Summary purpose TRANSITION OF CARE AUTO GENERATION Chief Complaint and Reason for Visit No authorized Reason for Visit (Admitting Diagnosis) is available for this visit . Problem list No authorized problems tracked for continuity of care are available for this vis it. Encounters No authorized problems tracked for encounter diagnoses are available for this vi sit. Medications No home medications recorded for this patient visit Allergies, [...]
[2018-07-14] MEDS ORDERED: APIX5TAB PO (23:14)
[2018-07-14] MEDS ORDERED: GEMF600T8 (23:14)
[2018-07-14] MEDS ORDERED: BUDE10.2 (23:14)
--- OUTSIDE RECORDS SUMMARY | 2018-07-14 23:14 | XMS REPORT ---
Author Author [facility] Medical Staff Organization [facility] Address [address] [place] [address] Phone [phone] Care Team Providers Care Service Line Bus Cleaner Name Role Phone FITO NINO MD PP [phone] Summary purpose TRANSITION OF CARE AUTO GENERATION [...] diagnostic tests and/or laboratory data RESULTS Chemistry [id number]:12:00 Result Normal Range Units Creatinine 1.21 0.6-1.3 mg/dl Result successfully called to RAD on 06/12/2014 at 08:32 by CAROLE. TO GINABRI Estimated GFR L 59 >=60 mL/min/1.7 Result successfully called to RAD on 06/12/2014 at 08:32 by CAROLE. TO RONNY Radiology Results [id number]:33:00 MRI L-SPINE W/WO CONT PACs Image DATE OF EXAM: 2014 MRI 0077-MRI L SPINE W/WO CONTRAST : RADIOLOGY REPORT DATE OF SERVICE: 06/12/14 HISTORY: Back pain and bilateral radiculopathy, history of previous back surgery PRE AND POSTCONTRAST MAGNETIC RESONANCE IMAGING LUMBAR [id number] HOURS Lumbar imaging was performed in the sagittal and axial planes. 15 mL Magnevist was administered for enhancement. The lumbar vertebrae are normal in height. There are no significant marrow lesions. There is a normal pattern of enhancement. There is a rudimentary disc space at S1-S2. There is 10 mm of anterolisthesis of L5 on S1. There has been prior L5 laminectomy. There appears to have been prior dorsal fusion at L5-S1. The conus medullaris is normal and terminates at upper level of L2. The paraspinous soft tissues are normal. At L1-L2, there is degenerative disc narrowing and bulging. There is a small right paracentral annular fissure without nerve root effacement. There is no canal or foraminal narrowing at this level. At L2-L3 and L3-L4, the disc contours are well maintained. There is no canal stenosis. There is mild degenerative facet arthrosis. The foramina are normal bilaterally. At L4-L5, there is disc narrowing and minimal posterior disc bulging. There is moderate to severe facet arthrosis. There is mild narrowing of the canal in the transverse dimension. At L4-L5, there is some degree of degenerative foraminal narrowing bilaterally predominantly due to facet arthrosis. At L5-S1, there is prior laminectomy. There is no pseudomeningocele. There is dorsal fusion. There is severe degenerative disc narrowing. There is mild degenerative foraminal stenosis bilaterally. IMPRESSION: 1. L5-S1 spondylolisthesis. Prior dorsal laminectomy and fusion. Bilateral L5-S1 foraminal narrowing. 2. Mild degenerative disc narrowing and bulging at L4-L5. Mild degenerative foraminal narrowing bilaterally at L4-L5. 3. Degenerative disc bulging and minimal annular fissure at L1-L2 without nerve root effacement. Toy Skinner MD MWJeff/nh06/12/2014 10:10:00 / 06/12/2014 10:32:23 cc:Dr. Toy Mcgill This document has been electronically Signed by: On: DATE OF EXAM: 2014 MRI 0077-MRI L SPINE W/WO CONTRAST : RADIOLOGY REPORT DATE OF SERVICE: 06/12/14 HISTORY: Back pain and bilateral radiculopathy, history of previous back surgery PRE AND POSTCONTRAST MAGNETIC RESONANCE IMAGING LUMBAR [id number] HOURS Lumbar imaging was performed in the sagittal and axial planes. 15 mL Magnevist was administered for enhancement. The lumbar vertebrae are normal in height. There are no significant marrow lesions. There is a normal pattern of enhancement. There is a rudimentary disc space at S1-S2. There is 10 mm of anterolisthesis of L5 on S1. There has been prior L5 laminectomy. There appears to have been prior dorsal fusion at L5-S1. The conus medullaris is normal and terminates at upper level of L2. The paraspinous soft tissues are normal. At L1-L2, there is degenerative disc narrowing and bulging. There is a small right paracentral annular fissure without nerve root effacement. There is no canal or foraminal narrowing at this level. At L2-L3 and L3-L4, the disc contours are well maintained. There is no canal stenosis. There is mild degenerative facet arthrosis. The foramina are normal bilaterally. At L4-L5, there is disc narrowing and minimal posterior disc bulging. There is moderate to severe facet arthrosis. There is mild narrowing of the canal in the transverse dimension. At L4-L5, there is some degree of degenerative foraminal narrowing bilaterally predominantly due to facet arthrosis. At L5-S1, there is prior laminectomy. There is no pseudomeningocele. There is dorsal fusion. There is severe degenerative disc narrowing. There is mild degenerative foraminal stenosis bilaterally. IMPRESSION: 1. L5-S1 spondylolisthesis. Prior dorsal laminectomy and fusion. Bilateral L5-S1 foraminal narrowing. 2. Mild degenerative disc narrowing and bulging at L4-L5. Mild degenerative foraminal narrowing bilaterally at L4-L5. 3. Degenerative disc bulging and minimal annular fissure at L1-L2 without nerve root effacement. Toy Skinner MD MWD/nh06/12/2014 10:10:00 / 06/12/2014 10:32:23 cc:Dr. Toy Mcgill This document has been electronically Signed by: TOY SKINNER On: 2014 11:33A Result Amended on 2014-06-12 at 11:33:41. Previous status was [place]. History of procedures No procedures recorded for [...]
--- OUTSIDE RECORDS SUMMARY | 2018-07-14 23:14 | XMS REPORT ---
Author Author [email or web address] Medical Staff Organization [place] [facility] Address [address] [place] [id number] Phone [phone] Summary purpose TRANSITION OF CARE AUTO GENERATION [...] diagnostic tests and/or laboratory data RESULTS Chemistry :50:00 Result Normal Range Units Sodium 138 134-145 mEq/l Potassium 4.3 3.5-5.1 mEq/l Chloride 104 98-107 mEq/l CO2 26.9 22-28 mEq/l Glucose 93 70-105 mg/dl BUN 16 7-18 mg/dl Creatinine 1.02 0.6-1.3 mg/dl Calcium 8.8 8.4-10.2 mg/dl Osmolality L 276.6 280-300 mOsm/L Anion GAP L 7.1 8-16 BUN/Creatinine Ratio 15.7 10-20 Estimated GFR 72 >=60 mL/min/1.7 C-Reactive Protein 0.5 0-1 mg/dl Hematology :50:00 Result Normal Range Units WBC 5.5 4.8-10.8 103/uL RBC L 4.4 4.7-6.1 106/uL HGB 13.3 13.0-18.0 g/dl HCT L 40.7 41.9-52.0 % MCV 92.7 80-94 FL MCH 30.3 27-31 pg MCHC L 32.7 33-37 g/dl RDW 14.9 11.5-15.5 % PLT 199 130-400 103/uL MPV 10.3 7.3-10.4 FL Neutro % 63.8 40-70 % Lymph % L 14.6 20-40 % [place] % H 13.0 0-10.0 % Eos % H 7.3 0-7.0 % Baso % 0.9 0-2 % Neutro # 3.5 1.5-7.5 103/uL Lymph # L 0.8 0.9-4.0 103/uL [place] # 0.7 0-0.8 103/uL Eos # 0.4 0-0.6 103/uL Baso # 0.1 0-0.1 103/uL Hematology - Other ([facility] [place]) [id number]:50:00 Result Normal Range Units Sed Rate 10 0-20 Radiology Results [id number]:50:00 Result Normal Range Units MPV 10.3 7.3-10.4 FL History of procedures No procedures [...]
--- OUTSIDE RECORDS SUMMARY | 2018-07-14 23:14 | XMS REPORT ---
Author Author [facility] [facility] Medical Staff Organization [facility] Address [address] [place] [address] Phone [phone] Care Team Providers Care Finish Repair Worker Name Role Phone TRUNG BLANCAS, FITO PP [phone] Summary purpose TRANSITION OF CARE AUTO GENERATION [...]
--- OUTSIDE RECORDS SUMMARY | 2018-07-14 23:14 | XMS REPORT ---
Author Author [email or web address] [facility] Medical Staff Organization [facility] Address [address] [place], [place] [address] Phone [phone] Summary purpose TRANSITION OF CARE AUTO GENERATION [...]
--- OUTSIDE RECORDS SUMMARY | 2018-07-14 23:14 | XMS REPORT ---
Author Author [facility] Medical Staff Organization [facility] Address [address] [place] [id number] Phone [phone] Summary purpose TRANSITION OF CARE AUTO GENERATION [...] diagnostic tests and/or laboratory data RESULTS Chemistry [id number]:34:00 Result Normal Range Units Triglycerides 101 35-160 mg/dl Cholesterol 153 120-200 mg/dl HDL Cholesterol 40 32-72 mg/dl VLDL Cholesterol 20 5-40 mg/dl LDL Cholesterol 98 30-100 mg/dl TP - Total Protein 7.1 6.0-8.3 g/dl Albumin L 3.4 3.5-5 g/dl Bilirubin - Total 0.6 0.1-1.0 mg/dl Direct Bilirubin 0.1 0-0.3 mg/dl Bilirubin Indirect 0.5 0.1-1.0 mg/dl AST 19 10-42 IU/L ALT 20 12-65 IU/L ALP H 138 39-107 IU/L Albumin/Globulin Ratio 0.9 0-8 History of procedures No procedures recorded for [...]
--- OUTSIDE RECORDS SUMMARY | 2018-07-14 23:14 | XMS REPORT ---
Author Author [facility] Medical Staff Organization [place] [facility] [facility] Address [address] [id number] Phone [phone] Care Team Providers Care Piano Builder Name Role Phone TRUNG BLANCAS, FITO PP [phone] Summary purpose TRANSITION OF CARE AUTO GENERATION [...] diagnostic tests and/or laboratory data RESULTS Chemistry [id number]:18:00 Result Normal Range Units Sodium 138 134-145 [...] C-Reactive Protein H 1.8 0-1 mg/dl Hematology [id number]:18:00 Result Normal Range Units WBC 5.7 4.8-10.8 103/uL RBC L 4.6 4.7-6.1 106/uL HGB 14.2 13.0-18.0 g/dl HCT 42.0 41.9-52.0 % MCV 90.5 80-94 FL MCH 30.6 27-31 pg MCHC 33.8 33-37 g/dl RDW 14.4 11.5-15.5 % PLT 248 130-400 103/uL MPV 10.1 7.3-10.4 FL Neutro % 62.8 40-70 % Lymph % L 19.1 20-40 % [place] % H 13.3 0-10.0 % Eos % 2.8 0-7.0 % Baso % 1.6 0-2 % Neutro # 3.6 1.5-7.5 103/uL Lymph # 1.1 0.9-4.0 103/uL [place] # 0.8 0-0.8 103/uL Eos # 0.2 0-0.6 103/uL Baso # 0.1 0-0.1 103/uL Hematology - Other (Misc) [id number]:18:00 Result Normal Range Units Sed Rate 20 0-20 Radiology Results [id number]:18:00 Result Normal Range Units MPV 10.1 7.3-10.4 FL History of procedures Procedure Code Code Type Description Date Performed Performing Physician 24255 CPT-4 METABOLIC PANEL TOTAL CA 03-08-2015 ZOE GARZA 52686 CPT-4 COMPLETE CBC W/AUTO DIFF WBC 03-08-2015 ZOE GARZA 19482 CPT-4 RBC SED RATE, NONAUTOMATED 03-08-2015 ZOE GARZA 42683 CPT-4 C-REACTIVE PROTEIN 03-08-2015 ZOE GARZA 63085 CPT-4 ROUTINE VENIPUNCTURE 03-08-2015 ZOE GARZA Functional status No functional or [...]
--- OUTSIDE RECORDS SUMMARY | 2018-07-14 23:14 | XMS REPORT ---
Author Author [facility] Medical Staff Organization [facility] Address [address] [place], [place] [address] Phone [phone] Care Team Providers Care Bike Mechanic Name Role Phone FITO NINO MD PP [phone] Summary purpose TRANSITION OF CARE AUTO GENERATION Chief Complaint and Reason for Visit Admit Diagnosis 1 LUMBAGO Problem list No authorized problems tracked for [...] diagnostic tests and/or laboratory data RESULTS Chemistry [id number]:12:00 Result Normal Range Units Creatinine 1.21 0.6-1.3 mg/dl Result successfully called to RAD on 06/12/2014 at 08:32 by CAROLE. TO RONNY Estimated GFR L 59 >=60 mL/min/1.7 Result successfully called to RAD on 06/12/2014 at 08:32 by CAROLE. TO RONNY Radiology Results [id number]:33:00 MRI L-SPINE W/WO CONT PACs Image DATE OF EXAM: 2014 MRI 0077-MRI L SPINE W/WO CONTRAST : RADIOLOGY REPORT DATE OF SERVICE: 06/12/14 HISTORY: Back pain and bilateral radiculopathy, history of previous back surgery PRE AND POSTCONTRAST MAGNETIC RESONANCE IMAGING LUMBAR [id number] HOURS Lumbar imaging was performed in the [...] PRE AND POSTCONTRAST MAGNETIC RESONANCE IMAGING LUMBAR [id number] HOURS Lumbar imaging was performed in the [...] on 2014-06-12 at 11:33:41. Previous status was [place]. History of procedures Procedure Code Code Type Description Date Performed Performing Physician 59113 CPT-4 ASSAY OF CREATININE 06-12-2014 TOY MCGILL 58215 CPT-4 MRI LUMBAR SPINE W/O & W/DYE 06-12-2014 TOY MCGILL A9579 CPT-4 ANG-BASE MR CONTRAST NOS,1ML 06-12-2014 TOY MCGILL 36186 CPT-4 ROUTINE VENIPUNCTURE 06-12-2014 TOY MCGILL Functional status No functional or [...]
--- OUTSIDE RECORDS SUMMARY | 2018-07-14 23:14 | XMS REPORT ---
Author Author [employer] [facility] Medical Staff Organization [facility] Address [address] [id number] Phone [phone] Summary purpose TRANSITION OF CARE AUTO GENERATION [...] Code Type Description Date Performed Performing Physician 65142 CPT-4 PT EVALUATION 05-16-2015 HIRAL SEWELL 61499 CPT-4 THERAPEUTIC EXERCISES 05-16-2015 HIRAL SEWELL 58538 CPT-4 THERAPEUTIC EXERCISES 05-18-2015 NON STAFF G8978 [...]
--- OUTSIDE RECORDS SUMMARY | 2018-07-14 23:14 | XMS REPORT ---
Author Author [facility]igned [facility] Medical Staff Organization [place] [facility] Address [address] [place], [place] [address] Phone [phone] Summary purpose TRANSITION OF CARE AUTO GENERATION [...] diagnostic tests and/or laboratory data RESULTS Chemistry [id number]:10:00 Result Normal Range Units Sodium 138 134-145 mEq/l Potassium 4.4 3.5-5.1 mEq/l Chloride 104 98-107 mEq/l CO2 26.4 22-28 mEq/l Glucose 76 70-105 mg/dl BUN 16 7-18 mg/dl Creatinine 0.97 0.6-1.3 mg/dl Calcium 8.5 8.4-10.2 mg/dl Osmolality L 275.6 280-300 mOsm/L Anion GAP L 7.6 8-16 BUN/Creatinine Ratio 16.5 10-20 Estimated GFR 76 >=60 mL/min/1.7 C-Reactive Protein 0.6 0-1 mg/dl Hematology [id number]:10:00 Result Normal Range Units WBC 5.8 4.8-10.8 103/uL RBC L 4.2 4.7-6.1 106/uL HGB L 12.7 13.0-18.0 g/dl HCT L 39.6 41.9-52.0 % MCV H 94.7 80-94 FL MCH 30.4 27-31 pg MCHC L 32.1 33-37 g/dl RDW 15.1 11.5-15.5 % PLT 308 130-400 103/uL MPV 9.6 7.3-10.4 FL Neutro % 59.9 40-70 % Lymph % 20.0 20-40 % [place] % H 12.6 0-10.0 % Eos % 5.3 0-7.0 % Baso % 1.7 0-2 % Neutro # 3.5 1.5-7.5 103/uL Lymph # 1.2 0.9-4.0 103/uL [place] # 0.7 0-0.8 103/uL Eos # 0.3 0-0.6 103/uL Baso # 0.1 0-0.1 103/uL Hematology - Other ([facility] [place]) [id number]:10:00 Result Normal Range Units Sed Rate H 44 0-20 Radiology Results [id number]:10:00 Result Normal Range Units MPV 9.6 7.3-10.4 [...]
--- OUTSIDE RECORDS SUMMARY | 2018-07-14 23:14 | XMS REPORT ---
Author Author [facility] Medical Staff Organization [facility] Address [address] [place], [place] [address] Phone [phone] Care Team Providers Care Smash Piecer Name Role Phone TRUNG BLANCAS, FITO PP [phone] Summary purpose TRANSITION OF CARE AUTO GENERATION [...] and/or laboratory data RESULTS Therapeutic Drug Monitoring :27:00 Result Normal Range Units Vancomycin Trough 18.0 10-22 ug/ml Chemistry :27:00 Result Normal Range Units Sodium 140 134-145 mEq/l Potassium 3.6 3.5-5.1 mEq/l Chloride 104 98-107 mEq/l CO2 24.3 22-28 mEq/l Glucose 85 70-105 mg/dl BUN 14 7-18 mg/dl Creatinine 1.04 0.6-1.3 mg/dl Calcium 8.7 8.4-10.2 mg/dl Osmolality L 279.1 280-300 mOsm/L Anion GAP 11.7 8-16 BUN/Creatinine Ratio 13.5 10-20 Estimated GFR 70 >=60 mL/min/1.7 C-Reactive Protein H 2.2 0-1 mg/dl Hematology :27:00 Result Normal Range Units WBC 5.7 4.8-10.8 103/uL RBC L 4.4 4.7-6.1 106/uL HGB 13.4 13.0-18.0 g/dl HCT L 40.3 41.9-52.0 % MCV 91.8 80-94 FL MCH 30.5 27-31 pg MCHC 33.3 33-37 g/dl RDW 14.4 11.5-15.5 % PLT 226 130-400 103/uL MPV 9.6 7.3-10.4 FL Neutro % 63.5 40-70 % Lymph % L 16.2 20-40 % [place] % H 13.4 0-10.0 % Eos % 5.2 0-7.0 % Baso % 1.2 0-2 % Neutro # 3.6 1.5-7.5 103/uL Lymph # 0.9 0.9-4.0 103/uL [place] # 0.8 0-0.8 103/uL Eos # 0.3 0-0.6 103/uL Baso # 0.1 0-0.1 103/uL Hematology - Other (Misc) [id number]:27:00 Result Normal Range Units Sed Rate H 25 0-20 Radiology Results [id number]:27:00 Result Normal Range Units MPV 9.6 7.3-10.4 FL History of procedures Procedure Code Code Type Description Date Performed Performing Physician 12903 CPT-4 METABOLIC PANEL TOTAL CA 03-01-2015 ZOE GARZA [id number] CPT-4 ASSAY OF VANCOMYCIN 03-01-2015 ZOE GARZA [id number] CPT-4 COMPLETE CBC W/AUTO DIFF WBC 03-01-2015 ZOE GARZA [id number] CPT-4 RBC SED RATE, NONAUTOMATED 03-01-2015 ZOE GARZA [id number] CPT-4 C-REACTIVE PROTEIN 03-01-2015 ZOESandra GARZA Functional status No functional or cognitive [...]
--- OUTSIDE RECORDS SUMMARY | 2018-07-14 23:14 | XMS REPORT ---
Author Author [facility] Medical Staff Organization [facility] [facility] Address [address] [place] [id number] Phone [phone] Summary purpose TRANSITION OF CARE AUTO GENERATION [...] % Lymph % L 14.6 20-40 % [place] % H 13.0 0-10.0 % Eos % H 7.3 0-7.0 % Baso % 0.9 0-2 % Neutro # 3.5 1.5-7.5 103/uL Lymph # L 0.8 0.9-4.0 103/uL [place] # 0.7 0-0.8 103/uL Eos # 0.4 0-0.6 103/uL Baso # 0.1 0-0.1 103/uL Hematology - Other (Misc) [id number]:00 Result Normal Range Units Sed Rate 10 0-20 Radiology Results [id number]:00 Result Normal Range Units MPV 10.3 7.3-10.4 FL History of procedures Procedure Code Code Type Description Date Performed Performing Physician 00748 CPT-4 METABOLIC PANEL TOTAL CA 02-13-2015 ZOE GARZA [id number] CPT-4 COMPLETE CBC W/AUTO DIFF WBC 02-13-2015 ZOE GARZA 84977 CPT-4 RBC SED RATE, NONAUTOMATED 02-13-2015 ZOE GARZA 49471 CPT-4 C-REACTIVE PROTEIN 02-13-2015 ZOE GARZA Functional status No functional or [...]
--- OUTSIDE RECORDS SUMMARY | 2018-07-14 23:14 | XMS REPORT ---
Author Author [facility] Medical Staff Organization [facility] Address [address] [place], [place] [id number] Phone [phone] Summary purpose TRANSITION OF CARE AUTO GENERATION [...] % Lymph % L 14.0 20-40 % [place] % H 11.1 0-10.0 % Eos % 5.3 0-7.0 % Baso % 1.4 0-2 % Neutro # 3.8 1.5-7.5 103/uL Lymph # L 0.8 0.9-4.0 103/uL [place] # 0.6 0-0.8 103/uL Eos # 0.3 0-0.6 103/uL Baso # 0.1 0-0.1 103/uL Hematology - Other (Misc) [id number]:00:00 Result Normal Range Units Sed Rate 15 0-20 Radiology Results [id number]:00 Result Normal Range Units MPV 9.8 7.3-10.4 FL History of procedures Procedure Code Code Type Description Date Performed Performing Physician [id number] CPT-4 METABOLIC PANEL TOTAL CA 02-08-2015 ZOE GARZA 03478 CPT-4 COMPLETE CBC W/AUTO DIFF WBC 02-08-2015 ZOE GARZA 22705 CPT-4 ASSAY OF VANCOMYCIN 02-08-2015 ZOE GARZA 41217 CPT-4 RBC SED RATE, NONAUTOMATED 02-08-2015 ZOE GARZA 31617 CPT-4 C-REACTIVE PROTEIN 02-08-2015 [facility] Functional status No functional or cognitive status [...]
[2018-07-14] MEDS ORDERED: ASPIRIN 81 MG CHEW (CHILDREN'S ASA) PO ONE (23:15)
--- OUTSIDE RECORDS SUMMARY | 2018-07-14 23:15 | XMS REPORT ---
Author Author [facility] Medical Staff Organization [facility] Address [address] [place], [place] [id number] Phone [phone] Summary purpose TRANSITION OF CARE AUTO GENERATION [...] tests and/or laboratory data RESULTS Radiology Results [id number]:00 MRI L-SPINE W/O CONT PACs Image DATE OF EXAM: 2014 MRI 0085-MRI L SPINE WO CONTRAST : RADIOLOGY REPORT DATE OF SERVICE: 10/18/14 HISTORY: Worsening low back pain with left lower extremity radiculopathy NONCONTRAST MAGNETIC RESONANCE IMAGING LUMBAR [id number] HOURS Imaging of the lumbar spine was [...] when compared with 06/12/2014. Toy Skinner MD MWD/va10/18/2014 11:05:00 / 10/18/2014 11:14:46 cc:Dr. Toy Mcgill This document has been electronically Signed by: On: DATE OF EXAM: 2014 MRI 0085-MRI L SPINE WO CONTRAST : RADIOLOGY REPORT DATE OF SERVICE: 10/18/14 HISTORY: Worsening low back pain with left lower extremity radiculopathy NONCONTRAST MAGNETIC RESONANCE IMAGING LUMBAR [id number] HOURS Imaging of the lumbar spine was [...] on 2014-10-18 at 13:40:18. Previous status was ME. History of procedures No procedures recorded for [...]
--- OUTSIDE RECORDS SUMMARY | 2018-07-14 23:15 | XMS REPORT ---
Author Author [facility] Medical Staff Organization [facility] Address [address] [place], [place] [address] Phone [phone] Summary purpose TRANSITION OF CARE AUTO GENERATION [...] % Lymph % L 15.5 20-40 % [place] % H 12.7 0-10.0 % Eos % 5.5 0-7.0 % Baso % 1.1 0-2 % Neutro # 3.4 1.5-7.5 103/uL Lymph # L 0.8 0.9-4.0 103/uL [place] # 0.7 0-0.8 103/uL Eos # 0.3 0-0.6 103/uL Baso # 0.1 0-0.1 103/uL Hematology - Other (Mis) [id number]:00 Result Normal Range Units Sed Rate 18 0-20 Radiology Results [id number]:00 Result Normal Range Units MPV 10.0 7.3-10.4 [...]
--- OUTSIDE RECORDS SUMMARY | 2018-07-14 23:15 | XMS REPORT ---
Author Author [facility] Medical Staff Organization [facility] Address [address] [place], [place] [address] Phone [phone] Summary purpose TRANSITION OF CARE AUTO GENERATION [...] % Lymph % L 16.2 20-40 % [place] % H 13.4 0-10.0 % Eos % 5.2 0-7.0 % Baso % 1.2 0-2 % Neutro # 3.6 1.5-7.5 103/uL Lymph # 0.9 0.9-4.0 103/uL [place] # 0.8 0-0.8 103/uL Eos # 0.3 0-0.6 103/uL Baso # 0.1 0-0.1 103/uL Hematology - Other ([facility] [place] [id number]:27:00 Result Normal Range Units Sed Rate H 25 0-20 Radiology Results [id number]:27:00 Result Normal Range Units MPV 9.6 7.3-10.4 [...]
--- OUTSIDE RECORDS SUMMARY | 2018-07-14 23:16 | XMS REPORT | CCD ---
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 Role Phone PP Unavailable CCM Unavailable Summary Purpose Interface Exchange Insurance Providers Payer name Policy type / Coverage type Covered alliance party ID Effective Begin Date Effective End Date WPS Medicare Part B Medicare Part B [id number] 2017 Unknown AARP Medicare Part B [id number] 2017 Unknown Family history Mother Diagnosis Age At Onset Skin cancer Unknown Cancer Unknown Osteoporosis Unknown Hypertension Unknown Hypercholesterolemia Unknown Granddaughter Angela Heard Diagnosis Age At Onset Cancer Unknown Son Diagnosis Age At Onset Cancer Unknown Hypercholesterolemia Unknown Skin cancer Unknown Brother Diagnosis Age At Onset Hypercholesterolemia Unknown Hypertension Unknown Social History Social History Element Codes Description Effective Dates Marital status Unknown Susanna Qureshi 11/17/2016 Number of children Unknown 2 11/17/2016 Employment Unknown Retired from [employer] 11/17/[address]: 5145084 Former smoker 11/17/2016 Alcohol history Unknown occasionally drinks alcohol 11/17/2016 Frequency of drinks SNOMED CT: 463204430 Drinks rarely 1 in 3 or 4 months 11/17/2016 Has the patient ever used illegal drugs? Unknown Has never used illegal drugs 11/17/2016 Allergies, Adverse Reactions, Alerts Substance Reaction Codes Entered Date Inactivated Date Status Shellfish anaphylaxis Unknown 11/17/2016 No Inactive Date Active demerol nausea, RxNorm: 870531 11/17/2016 No Inactive Date Active Past Medical History Illness Codes Condition Status Onset Date Resolved Date Essential (primary) hypertension ICD-9: 401.1 ICD-10: I10 Active 11/17/2016 Unknown Testicular hypofunction ICD-9: 257.2 ICD-10: E29.1 Active 06/11/2017 Unknown Type 2 diabetes mellitus without complications ICD-9: 250.00 ICD-10: E11.9 Active 11/17/2016 Unknown Iron deficiency anemia, unspecified ICD-9: 280.9 ICD-10: D50.9 Active 04/13/2018 Unknown Mixed hyperlipidemia ICD- 9: 272.2 ICD-10: E78.2 Active 11/17/2016 Unknown Male erectile disorder ICD-9: 302.72 ICD-10: F52.21 Active 02/23/2017 Unknown Other emphysema ICD-9: 492.8 ICD-10: J43.8 Active 11/17/2016 Unknown Benign prostatic hyperplasia with lower urinary tract symptoms ICD-9: 600.01 ICD-10: N40.1 Active 12/16/2017 Unknown Hesitancy of micturition ICD-9: 788.64 ICD-10: R39.11 Active 12/16/2017 Unknown Other retention of urine ICD-9: 788.29 ICD-10: R33.8 Active 12/16/2017 Unknown Encounter for immunization ICD-9: V04.81 ICD-10: Z23 Active 11/17/2016 Unknown 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 Active 05/18/2017 Unknown Cough ICD-9: 786.2 ICD-10: R05 Active 02/23/2017 Unknown Encounter for immunization ICD-9: V03.9 ICD-10: Z23 Active 11/19/2016 Unknown Diabetes Unknown Active 11/17/2016 Unknown Dependence on supplemental oxygen ICD-9: V46.2 ICD-10: Z99.81 Active 11/17/2016 Unknown Problems Condition Codes Effective Dates Condition Status Essential (primary) hypertension ICD-9: 401.1 ICD-10: I10 11/17/2016 Active Testicular hypofunction ICD-9: 257.2 ICD-10: E29.1 06/11/2017 Active Type 2 diabetes mellitus without complications ICD-9: 250.00 ICD-10: E11.9 11/17/2016 Active Iron deficiency anemia, unspecified ICD-9: 280.9 ICD-10: D50.9 04/13/2018 Active Mixed hyperlipidemia ICD- 9: 272.2 ICD-10: E78.2 11/17/2016 Active Male erectile disorder ICD-9: 302.72 ICD-10: F52.21 02/23/2017 Active Other emphysema ICD-9: 492.8 ICD-10: J43.8 11/17/2016 Active Benign prostatic hyperplasia with lower urinary tract symptoms ICD-9: 600.01 ICD-10: N40.1 12/16/2017 Active Hesitancy of micturition ICD-9: 788.64 ICD-10: R39.11 12/16/2017 Active Other retention of urine ICD-9: 788.29 ICD-10: R33.8 12/16/2017 Active Encounter for immunization ICD-9: V04.81 ICD-10: Z23 11/17/2016 Active 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 05/18/2017 Active Cough ICD-9: 786.2 ICD-10: R05 02/23/2017 Active Encounter for immunization ICD-9: V03.9 ICD-10: Z23 11/19/2016 Active Diabetes Unknown 11/17/2016 Active Dependence on supplemental oxygen ICD-9: V46.2 ICD-10: Z99.81 11/17/2016 Active Medications Medication Codes Instructions Start Date Stop Date Status Fill Instructions Symbicort 160 mcg-4.5 mcg/actuation HFA aerosol inhaler RxNorm: 1112663 2 Puff(s) INH BID 07/06/2018 09/03/2018 Active metoprolol tartrate 25 mg tablet RxNorm: 288600 1 Tablet(s) PO BID 06/21/2018 01/16/2019 Active tramadol 50 mg tablet RxNorm: 477752 1-2 Tablet(s) PO QID as needed for pain 04/12/2018 06/10/2018 Inactive diltiazem ER 300 mg tablet,extended release 24 hr RxNorm: 444987 1 Tablet(s) PO daily 04/12/2018 04/06/2019 Active tramadol 50 mg tablet RxNorm: 552157 1-2 Tablet(s) PO QID as needed for pain 01/12/2018 03/11/2018 Inactive Cipro 500 mg tablet RxNorm: 304778 1 Tablet(s) PO BID 12/17/2017 12/26/2017 Inactive Cipro 500 mg tablet RxNorm: 843130 1 Tablet(s) PO BID 12/16/2017 12/16/2017 Inactive Singulair 10 mg tablet RxNorm: 275673 1 tab(s) PO qPM 11/26/2017 No Stop Date Active tramadol 50 mg tablet RxNorm: 564191 1-2 Tablet(s) PO QID as needed for pain 11/10/2017 01/07/2018 Inactive Symbicort 160 mcg-4.5 mcg/actuation HFA aerosol inhaler RxNorm: 7386713 2 Puff(s) INH BID 11/10/2017 01/08/2018 Inactive testosterone cypionate 200 mg/mL intramuscular oil RxNorm: 961506 2.25 Milliliter(s) IM [id number] 11/04/2017 07/01/2018 Inactive metoprolol tartrate 50 mg tablet RxNorm: 445529 1 Tablet(s) PO BID 10/19/2017 06/20/2018 Inactive gemfibrozil 600 mg tablet RxNorm: 240919 1 Tablet(s) PO BID 10/16/2017 10/10/2018 Active sildenafil (antihypertensive) 20 mg tablet RxNorm: 390983 TAKE 2&1/2 TABLETS BY MOUTH DIRECTED 10/02/2017 02/22/2018 Inactive Generic For:REVATIO 20 MG TABLET N O T I C E PRESCRIPTION PREVIOUSLY AUTHORIZED BY DOCTOR:WESLEY NINO omeprazole 40 mg capsule,delayed release RxNorm: 824011 1 cap(s) PO Daily 09/09/2017 No Stop Date Active tamsulosin 0.4 mg capsule RxNorm: 226642 TAKE 1 CAPSULE BY MOUTH DAILY NEEDED 09/09/2017 09/03/2018 Active Generic For:FLOMAX 0.4 MG CAPSULE SA 09/07/2017 12:43:43 PM 09/09/2017 1:54:53 PM lisinopril 20 mg tablet RxNorm: 350835 1 tab(s) PO BID 09/09/2017 No Stop Date Active Vitamin D2 50,000 unit capsule RxNorm: 8574824 1 Capsule(s) PO QW 09/09/2017 12/01/2017 Inactive tramadol 50 mg tablet RxNorm: 318969 1-2 Tablet(s) PO QID as needed for pain 09/07/2017 01/11/2018 Inactive tramadol 50 mg tablet RxNorm: 880962 1-2 Tablet(s) PO QID 08/14/2017 11/09/2017 Inactive testosterone cypionate 200 mg/mL intramuscular oil RxNorm: 322225 2 Milliliter(s) IM [id number] 07/29/2017 11/03/2017 Inactive tramadol 50 mg tablet RxNorm: 609340 1-2 Tablet(s) PO QID as needed for pain 06/08/2017 08/05/2017 Inactive testosterone cypionate 200 mg/mL intramuscular oil RxNorm: 021557 2.25 Milliliter(s) IM [id number] 06/08/2017 07/28/2017 Inactive gemfibrozil 600 mg tablet RxNorm: 508396 1 Tablet(s) PO BID 05/20/2017 05/19/2017 Inactive gemfibrozil 600 mg tablet RxNorm: 549355 1 Tablet(s) PO BID 05/20/2017 10/15/2017 Inactive Vitamin D2 50,000 unit capsule RxNorm: 5102195 1 Capsule(s) PO QW 04/29/2017 07/21/2017 Inactive Vitamin D2 50,000 unit capsule RxNorm: 944218 1 Capsule(s) PO QW 04/29/2017 04/28/2017 Inactive testosterone cypionate 200 mg/mL intramuscular oil RxNorm: 680822 300 Milligram(s) IM monthly 04/10/2017 No Stop Date Active diltiazem ER 300 mg tablet,extended release 24 hr RxNorm: 232877 1 Tablet(s) PO daily 04/10/2017 01/04/2018 Inactive multivitamin tablet RxNorm: 1 Tablet(s) PO daily No Start Date Active ProAir HFA 90 mcg/actuation aerosol inhaler RxNorm: 862210 2 Puff(s) INH QID No Start Date Active pravastatin 20 mg tablet RxNorm: 489407 1 Tablet(s) PO daily No Start Date Active Eliquis 5 mg tablet RxNorm: 7768519 1 Tablet(s) PO BID No Start Date Active Flonase Allergy Relief 50 mcg/actuation nasal spray,suspension RxNorm: 5808657 2 [place] NASAL daily No Start Date Active albuterol sulfate 2.5 mg/3 mL (0.083 %) solution for nebulization RxNorm: 699593 3 Milliliter(s) INH Q6 for wheezing No Start Date Active EpiPen 2-Marcelo 0.3 mg/0.3 mL injection, auto-injector RxNorm: 160197 0.3 Milliliter(s) IM PRN allergic reaction No Start Date Active hydrocodone 10 mg-acetaminophen 325 mg tablet RxNorm: 491367 1 Tablet(s) PO Q4H No Start Date Active Spiriva Respimat 2.5 mcg/actuation solution for inhalation RxNorm: 5867733 2 Puff(s) INH daily No Start Date Active tramadol 50 mg tablet RxNorm: 061354 1 Tablet(s) PO Q4H No Start Date 08/13/2017 Inactive diltiazem ER 300 mg tablet,extended release 24 hr RxNorm: 673256 1 Tablet(s) PO daily No Start Date 04/09/2017 Inactive Singulair 10 mg tablet RxNorm: 964257 1 Tablet(s) PO daily No Start Date 11/25/2017 Inactive Zyrtec 10 mg tablet RxNorm: 0519153 1 Tablet(s) PO daily No Start Date 10/18/2017 Inactive sildenafil (antihypertensive) 20 mg tablet RxNorm: 543953 3 Tablet(s) PO as needed No Start Date 10/01/2017 Inactive metoprolol tartrate 25 mg tablet RxNorm: 965702 1 Tablet(s) PO BID No Start Date 10/18/2017 Inactive omeprazole 40 mg capsule,delayed release RxNorm: 750736 1 Capsule(s) PO daily No Start Date 09/08/2017 Inactive Symbicort 160 mcg-4.5 mcg/actuation HFA aerosol inhaler RxNorm: 5217108 2 Puff(s) INH BID No Start Date 11/09/2017 Inactive amiodarone 200 mg tablet RxNorm: 358809 1 Tablet(s) PO daily No Start Date 02/22/2017 Inactive tamsulosin 0.4 mg capsule RxNorm: 589119 1 Capsule(s) PO daily No Start Date 09/08/2017 Inactive lisinopril 20 mg tablet RxNorm: 110148 1 Tablet(s) PO BID No Start Date 09/08/2017 Inactive Fish Oil 300 mg-1,000 mg capsule RxNorm: 739798 2 Capsule(s) PO QAM and 1 Capsule PO QPM No Start Date 10/18/2017 Inactive Vitamin D3 2,000 unit tablet RxNorm: 239353 1 Tablet(s) PO daily No Start Date 02/14/2018 Inactive testosterone cypionate 200 mg/mL intramuscular oil RxNorm: 082852 300 Milligram(s) IM monthly No Start Date 04/09/2017 Inactive Medication Administered No Medication Administered data Immunizations Vaccine Codes Date Status Influenza CVX: 141 10/19/2017 completed Pneumococcal (Adult) CVX: 133 11/19/2016 completed Influenza CVX: 141 11/17/2016 completed Influenza CVX: 141 11/10/2015 completed Pneumococcal (Adult) CVX: 33 11/10/2015 completed Assessments Condition Codes Effective Dates Essential (primary) hypertension ICD-10: I10 ICD-9: 401.1 06/21/2018 Testicular hypofunction ICD-10: E29.1 ICD-9: 257.2 06/21/2018 Type 2 diabetes mellitus without complications ICD-10: E11.9 ICD-9: 250.00 06/21/2018 Iron deficiency anemia, unspecified ICD-10: D50.9 ICD-9: 280.9 04/13/2018 Mixed hyperlipidemia ICD-10: E78.2 ICD-9: 272.2 04/13/2018 Other emphysema ICD-10: J43.8 ICD-9: 492.8 02/15/2018 Male erectile disorder ICD-10: F52.21 ICD-9: 302.72 02/15/2018 Other retention of urine ICD-10: R33.8 ICD-9: 788.29 12/16/2017 Hesitancy of micturition ICD-10: R39.11 ICD-9: 788.64 12/16/2017 Benign prostatic hyperplasia with lower urinary tract symptoms ICD-10: N40.1 ICD-9: 600.01 12/16/2017 Encounter for immunization ICD-10: Z23 ICD-9: V04.81 10/19/2017 Other hemoglobinopathies ICD-10: D58.2 ICD-9: 282.7 07/22/2017 Cough ICD-10: R05 ICD-9: 786.2 02/23/2017 Encounter for immunization ICD-10: Z23 ICD-9: V03.9 11/19/2016 Dependence on supplemental oxygen ICD-10: Z99.81 ICD-9: V46.2 11/17/2016 Reason For Visit Reason For Visit Effective Dates Notes hypertension 06/21/2018 hypertension 02/15/2018 urinary frequency 12/16/2017 hypertension 10/19/2017 hypertension 06/11/2017 hypertension 02/23/2017 vaccination against pneumonia 11/19/2016 hypertension 11/17/2016 Results Observation Observation Code Item Item Code Result Date Tibc Ord40 Iron 148 ug/dl 04/14/2018 Tibc Ord40 UIBC 137 ug/dL 04/14/2018 Tibc Ord40 TIBC 285 ug/dL 04/14/2018 Tibc Ord40 Fe-%Sat 51.9 % 04/14/2018 Ferritin Ord22 FERRITIN 139.6 ng/mL 04/14/2018 Cbc With Differential Ord2 WBC 11.12 K/ul 04/14/2018 Cbc With Differential Ord2 RBC 4.77 M/ul 04/14/2018 Cbc With Differential Ord2 HGB 17.3 g/dl 04/14/2018 Cbc With Differential Ord2 Neut% 81.6 % 04/14/2018 Cbc With Differential Ord2 HCT 48.7 % 04/14/2018 Cbc With Differential Ord2 Lymph% 9.9 % 04/14/2018 Cbc With Differential Ord2 MCV 102.1 fl 04/14/2018 Cbc With Differential Ord2 MCH 36.3 pg 04/14/2018 Cbc With Differential Ord2 [place]% 7.4 % 04/14/2018 Cbc With Differential Ord2 Eos% 0.5 % 04/14/2018 Cbc With Differential Ord2 MCHC 35.5 pg 04/14/2018 Cbc With Differential Ord2 Baso% 0.6 % 04/14/2018 Cbc With Differential Ord2 PLT 398 K/ul 04/14/2018 Cbc With Differential Ord2 Neut ABS# 9.07 K/ul 04/14/2018 Cbc With Differential Ord2 RDW 16.7 % 04/14/2018 Cbc With Differential Ord2 Lymph ABS# 1.10 K/ul 04/14/2018 Cbc With Differential Ord2 [place] ABS# 0.8 K/ul 04/14/2018 Cbc With Differential Ord2 Eos ABS# 0.1 K/ul 04/14/2018 Cbc With Differential Ord2 Baso ABS# 0.1 K/ul 04/14/2018 Testosterone Ewg010 Testo 394.4 ng/dL 04/14/2018 Testosterone Eex486 Testo 27.4 ng/dL 12/17/2017 Urinalysis Ord28 U-Color Yellow 12/16/2017 Urinalysis Ord28 U-Clarity Slightly Cloudy 12/16/2017 Urinalysis Ord28 U-Gluc Negative 12/16/2017 Urinalysis Ord28 U-Bili Negative 12/16/2017 Urinalysis Ord28 U-Ketone Negative 12/16/2017 Urinalysis Ord28 U-SG 1.010 12/16/2017 Urinalysis Ord28 U-Blood Negative 12/16/2017 Urinalysis Ord28 U-pH 6.0 12/16/2017 Urinalysis Ord28 U-Protein Negative 12/16/2017 Urinalysis Ord28 U-Urobilin 0.2 E.U./dL E.U./dL 12/16/2017 Urinalysis Ord28 U-Nitrites Negative 12/16/2017 Urinalysis Ord28 U-Leuk Negative 12/16/2017 Urinalysis Ord28 U-Bact TRACE 12/16/2017 Urinalysis Ord28 U-Squamous Epi RARE per/HPF 12/16/2017 Urinalysis Ord28 U-Crystal None per/HPF 12/16/2017 Urinalysis Ord28 U-Mucus None 12/16/2017 Urinalysis Ord28 U-Renal tubular epi None 12/16/2017 Urinalysis Ord28 U-RBC 0-2 per/HPF 12/16/2017 Urinalysis Ord28 U-Transitional epi None per/HPF 12/16/2017 Urinalysis Ord28 U-WBC RARE per/HPF 12/16/2017 Urinalysis Ord28 U-Cast None per/HPF 12/16/2017 Urinalysis Ord28 U-VOL VOLUME SUFFICIENT (10mL) 12/16/2017 Urinalysis Ord28 U-Yeast NEGATIVE 12/16/2017 Urinalysis Ord28 U-Com No culture indicated, Urine saved if culture needed (specimen acceptable for 48 hours from collection if refrigerated) 12/16/2017 Cbc With Differential Ord2 WBC 6.21 K/ul 12/16/2017 Cbc With Differential Ord2 RBC 6.09 M/ul 12/16/2017 Cbc With Differential Ord2 HGB 18.7 g/dl 12/16/2017 Cbc With Differential Ord2 HCT 55.1 % 12/16/2017 Cbc With Differential Ord2 Neut% 60.5 % 12/16/2017 Cbc With Differential Ord2 MCV 90.5 fl 12/16/2017 Cbc With Differential Ord2 Lymph% 22.9 % 12/16/2017 Cbc With Differential Ord2 MCH 30.7 pg 12/16/2017 Cbc With Differential Ord2 [place]% 15.0 % 12/16/2017 Cbc With Differential Ord2 MCHC 33.9 pg 12/16/2017 Cbc With Differential Ord2 Eos% 1.1 % 12/16/2017 Cbc With Differential Ord2 PLT 194 K/ul 12/16/2017 Cbc With Differential Ord2 Baso% 0.5 % 12/16/2017 Cbc With Differential Ord2 RDW 15.3 % 12/16/2017 Cbc With Differential Ord2 Neut ABS# 3.76 K/ul 12/16/2017 Cbc With Differential Ord2 Lymph ABS# 1.42 K/ul 12/16/2017 Cbc With Differential Ord2 [place] ABS# 0.9 K/ul 12/16/2017 Cbc With Differential Ord2 Eos ABS# 0.1 K/ul 12/16/2017 Cbc With Differential Ord2 Baso ABS# 0.0 K/ul 12/16/2017 Cbc With Differential Ord2 WBC 6.69 K/ul 07/22/2017 Cbc With Differential Ord2 RBC 5.91 M/ul 07/22/2017 Cbc With Differential Ord2 HGB 17.8 g/dl 07/22/2017 Cbc With Differential Ord2 HCT 52.7 % 07/22/2017 Cbc With Differential Ord2 Neut% 63.3 % 07/22/2017 Cbc With Differential Ord2 MCV 89.2 fl 07/22/2017 Cbc With Differential Ord2 Lymph% 21.1 % 07/22/2017 Cbc With Differential Ord2 MCH 30.1 pg 07/22/2017 Cbc With Differential Ord2 [place]% 14.5 % 07/22/2017 Cbc With Differential Ord2 MCHC 33.8 pg 07/22/2017 Cbc With Differential Ord2 Eos% 0.7 % 07/22/2017 Cbc With Differential Ord2 PLT 212 K/ul 07/22/2017 Cbc With Differential Ord2 Baso% 0.4 % 07/22/2017 Cbc With Differential Ord2 RDW 20.1 % 07/22/2017 Cbc With Differential Ord2 Neut ABS# 4.23 K/ul 07/22/2017 Cbc With Differential Ord2 Lymph ABS# 1.41 K/ul 07/22/2017 Cbc With Differential Ord2 [place] ABS# 1.0 K/ul 07/22/2017 Cbc With Differential Ord2 Eos ABS# 0.1 K/ul 07/22/2017 Cbc With Differential Ord2 Baso ABS# 0.0 K/ul 07/22/2017 Testosterone Xke393 Testo 1132.5 ng/dL 07/22/2017 Cbc With Differential Ord2 WBC 6.55 K/ul 05/19/2017 Cbc With Differential Ord2 RBC 5.90 M/ul 05/19/2017 Cbc With Differential Ord2 HGB 16.9 g/dl 05/19/2017 Cbc With Differential Ord2 HCT 51.4 % 05/19/2017 Cbc With Differential Ord2 Neut% 66.3 % 05/19/2017 Cbc With Differential Ord2 MCV 87.1 fl 05/19/2017 Cbc With Differential Ord2 Lymph% 18.3 % 05/19/2017 Cbc With Differential Ord2 MCH 28.6 pg 05/19/2017 Cbc With Differential Ord2 [place]% 13.9 % 05/19/2017 Cbc With Differential Ord2 MCHC 32.9 pg 05/19/2017 Cbc With Differential Ord2 Eos% 0.9 % 05/19/2017 Cbc With Differential Ord2 PLT 254 K/ul 05/19/2017 Cbc With Differential Ord2 Baso% 0.6 % 05/19/2017 Cbc With Differential Ord2 RDW 19.1 % 05/19/2017 Cbc With Differential Ord2 Neut ABS# 4.34 K/ul 05/19/2017 Cbc With Differential Ord2 Lymph ABS# 1.20 K/ul 05/19/2017 Cbc With Differential Ord2 [place] ABS# 0.9 K/ul 05/19/2017 Cbc With Differential Ord2 Eos ABS# 0.1 K/ul 05/19/2017 Cbc With Differential Ord2 Baso ABS# 0.0 K/ul 05/19/2017 Comp Metabolic Jnq062 NA 136 mEq/L 11/18/2016 Comp Metabolic Nwj842 K 4.2 mEq/L 11/18/2016 Comp Metabolic Ibx817 CL 106 mEq/L 11/18/2016 Comp Metabolic Veo131 CO2 21.0 mEq/L 11/18/2016 Comp Metabolic Dgc649 ANION GAP 13 11/18/2016 Comp Metabolic Bsf191 GLUCOSE 96 mg/dL 11/18/2016 Comp Metabolic Oau647 Creat 1.0 mg/dL 11/18/2016 Comp Metabolic Efg606 eGFR 77 ml/min/1.73m2 11/18/2016 Comp Metabolic Wpd804 BUN 13 mg/dL 11/18/2016 Comp Metabolic Wnz170 B/C Ratio 13.0 Ratio 11/18/2016 Comp Metabolic Ugr634 CALCIUM 8.9 mg/dL 11/18/2016 Comp Metabolic Fxc647 ALK PHOS 88 U/L 11/18/2016 Comp Metabolic Vod584 AST(SGOT) 17 U/L 11/18/2016 Comp Metabolic Agu700 ALT(SGPT) 16 U/L 11/18/2016 Comp Metabolic Zzh297 BILI T 0.9 mg/dL 11/18/2016 Comp Metabolic Pcg117 ALBUMIN 3.9 g/dL 11/18/2016 Comp Metabolic Qic971 TPRO 6.4 g/dL 11/18/2016 Comp Metabolic Xod043 GLOB 2.5 g/dL 11/18/2016 Comp Metabolic Ezb305 A/G Ratio 1.6 Ratio 11/18/2016 Comp Metabolic Cvx017 Osmo 272 mOsmo 11/18/2016 %Hba1C Nva260 % HbA1c 52012- 6 5.7 % 11/18/2016 %Hba1C Njm514 Gluc Ave 117 mg/dL 11/18/2016 Cbc With Differential Ord2 WBC 7.45 K/ul 11/18/2016 Cbc With Differential Ord2 RBC 5.70 M/ul 11/18/2016 Cbc With Differential Ord2 HGB 15.8 g/dl 11/18/2016 Cbc With Differential Ord2 HCT 47.7 % 11/18/2016 Cbc With Differential Ord2 Neut% 69.9 % 11/18/2016 Cbc With Differential Ord2 MCV 83.7 fl 11/18/2016 Cbc With Differential Ord2 Lymph% 14.4 % 11/18/2016 Cbc With Differential Ord2 MCH 27.7 pg 11/18/2016 Cbc With Differential Ord2 [place]% 14.0 % 11/18/2016 Cbc With Differential Ord2 MCHC 33.1 pg 11/18/2016 Cbc With Differential Ord2 Eos% 1.3 % 11/18/2016 Cbc With Differential Ord2 PLT 220 K/ul 11/18/2016 Cbc With Differential Ord2 Baso% 0.4 % 11/18/2016 Cbc With Differential Ord2 RDW 21.1 % 11/18/2016 Cbc With Differential Ord2 Neut ABS# 5.21 K/ul 11/18/2016 Cbc With Differential Ord2 Lymph ABS# 1.07 K/ul 11/18/2016 Cbc With Differential Ord2 [place] ABS# 1.0 K/ul 11/18/2016 Cbc With Differential Ord2 Eos ABS# 0.1 K/ul 11/18/2016 Cbc With Differential Ord2 Baso ABS# 0.0 K/ul 11/18/2016 Lipid Ord30 CHOL 116 mg/dL 11/18/2016 Lipid Ord30 HDL 32.0 mg/dl 11/18/2016 Lipid Ord30 TRIG 97 mg/dL 11/18/2016 Lipid Ord30 LDL 65 mg/dL 11/18/2016 Lipid Ord30 C/HDL 3.6 Ratio 11/18/2016 Review of Systems System Result Effective Dates Constitutional No recent illness 06/21/2018 Constitutional No chills 06/21/2018 Constitutional No fever 06/21/2018 Constitutional No insomnia 06/21/2018 Constitutional malaise 06/21/2018 Eyes No vision change 06/21/2018 Ears/Nose/Throat/Neck No dizziness 06/21/2018 Ears/Nose/Throat/Neck No dysphagia 06/21/2018 Ears/Nose/Throat/Neck No headache 06/21/2018 Ears/Nose/Throat/Neck hearing loss 06/21/2018 Ears/Nose/Throat/Neck No nasal allergies 06/21/2018 Ears/Nose/Throat/Neck No sore throat 06/21/2018 Ears/Nose/Throat/Neck No postnasal drip 06/21/2018 Cardiovascular No chest pain/pressure 06/21/2018 Cardiovascular dyspnea 06/21/2018 Cardiovascular No edema 06/21/2018 Cardiovascular exercise intolerance 06/21/2018 Cardiovascular No fatigue 06/21/2018 Cardiovascular hypertension 06/21/2018 Cardiovascular No near-syncope/dizziness 06/21/2018 Respiratory chest tightness 06/21/2018 Respiratory cough 06/21/2018 Respiratory dyspnea on exertion 06/21/2018 Respiratory No dyspnea 06/21/2018 Respiratory No pedal edema 06/21/2018 Gastrointestinal No abdominal pain 06/21/2018 Gastrointestinal No constipation 06/21/2018 Gastrointestinal No diarrhea 06/21/2018 Gastrointestinal No gastroesophageal reflux 06/21/2018 Gastrointestinal No nausea 06/21/2018 Gastrointestinal No vomiting 06/21/2018 Genitourinary/Nephrology No dysuria 06/21/2018 Genitourinary/Nephrology impotence 06/21/2018 Genitourinary/Nephrology No nocturia 06/21/2018 Genitourinary/Nephrology No urinary incontinence 06/21/2018 Musculoskeletal No stiffness 06/21/2018 Musculoskeletal No swelling 06/21/2018 Musculoskeletal arthralgia(s) 06/21/2018 Musculoskeletal muscle weakness 06/21/2018 Musculoskeletal No myalgias 06/21/2018 Dermatologic No rash 06/21/2018 Dermatologic No sores 06/21/2018 Neurologic No dizziness 06/21/2018 Neurologic No headache 06/21/2018 Neurologic No neck pain 06/21/2018 Neurologic No syncope 06/21/2018 Psychiatric No anxiety 06/21/2018 Psychiatric No depression 06/21/2018 Endocrine diabetes mellitus type 2 06/21/2018 Constitutional fatigue 06/21/2018 Constitutional No recent illness 02/15/2018 Constitutional No chills 02/15/2018 Constitutional No fever 02/15/2018 Constitutional No insomnia 02/15/2018 Constitutional malaise 02/15/2018 Eyes No vision change 02/15/2018 Ears/Nose/Throat/Neck No dizziness 02/15/2018 Ears/Nose/Throat/Neck No dysphagia 02/15/2018 Ears/Nose/Throat/Neck No headache 02/15/2018 Ears/Nose/Throat/Neck hearing loss 02/15/2018 Ears/Nose/Throat/Neck No nasal allergies 02/15/2018 Ears/Nose/Throat/Neck No sore throat 02/15/2018 Ears/Nose/Throat/Neck No postnasal drip 02/15/2018 Cardiovascular No chest pain/pressure 02/15/2018 Cardiovascular dyspnea 02/15/2018 Cardiovascular No edema 02/15/2018 Cardiovascular exercise intolerance 02/15/2018 Cardiovascular No fatigue 02/15/2018 Cardiovascular No near-syncope/dizziness 02/15/2018 Respiratory chest tightness 02/15/2018 Respiratory cough 02/15/2018 Respiratory dyspnea on exertion 02/15/2018 Respiratory No dyspnea 02/15/2018 Respiratory No pedal edema 02/15/2018 Gastrointestinal No abdominal pain 02/15/2018 Gastrointestinal No constipation 02/15/2018 Gastrointestinal No diarrhea 02/15/2018 Gastrointestinal No gastroesophageal reflux 02/15/2018 Gastrointestinal No nausea 02/15/2018 Gastrointestinal No vomiting 02/15/2018 Genitourinary/Nephrology No dysuria 02/15/2018 Genitourinary/Nephrology impotence 02/15/2018 Genitourinary/Nephrology No nocturia 02/15/2018 Genitourinary/Nephrology No urinary incontinence 02/15/2018 Musculoskeletal No stiffness 02/15/2018 Musculoskeletal No swelling 02/15/2018 Musculoskeletal arthralgia(s) 02/15/2018 Musculoskeletal muscle weakness 02/15/2018 Musculoskeletal No myalgias 02/15/2018 Dermatologic No rash 02/15/2018 Dermatologic No sores 02/15/2018 Neurologic No dizziness 02/15/2018 Neurologic No headache 02/15/2018 Neurologic No neck pain 02/15/2018 Neurologic No syncope 02/15/2018 Psychiatric No anxiety 02/15/2018 Psychiatric No depression 02/15/2018 Cardiovascular hypertension 02/15/2018 Endocrine diabetes mellitus type 2 02/15/2018 Constitutional No recent illness 12/16/2017 Constitutional No fever 12/16/2017 Constitutional No chills 12/16/2017 Constitutional No diaphoresis 12/16/2017 Eyes No eye erythema 12/16/2017 Ears/Nose/Throat/Neck No nasal discharge 12/16/2017 Cardiovascular No chest pain/pressure 12/16/2017 Respiratory No cough 12/16/2017 Gastrointestinal No abdominal pain 12/16/2017 Genitourinary/Nephrology No dysuria 12/16/2017 Genitourinary/Nephrology urinary retention/hesitancy 12/16/2017 Genitourinary/Nephrology nocturia 12/16/2017 Neurologic No alteration of consciousness 12/16/2017 Neurologic No mental status change 12/16/2017 Constitutional fatigue 12/16/2017 Constitutional No recent illness 10/19/2017 Constitutional No chills 10/19/2017 Constitutional No fever 10/19/2017 Constitutional No insomnia 10/19/2017 Constitutional malaise 10/19/2017 Eyes No vision change 10/19/2017 Ears/Nose/Throat/Neck No dizziness 10/19/2017 Ears/Nose/Throat/Neck No dysphagia 10/19/2017 Ears/Nose/Throat/Neck No headache 10/19/2017 Ears/Nose/Throat/Neck hearing loss 10/19/2017 Ears/Nose/Throat/Neck No nasal allergies 10/19/2017 Ears/Nose/Throat/Neck No sore throat 10/19/2017 Ears/Nose/Throat/Neck No postnasal drip 10/19/2017 Cardiovascular No chest pain/pressure 10/19/2017 Cardiovascular dyspnea 10/19/2017 Cardiovascular No edema 10/19/2017 Cardiovascular exercise intolerance 10/19/2017 Cardiovascular No fatigue 10/19/2017 Cardiovascular No near-syncope/dizziness 10/19/2017 Respiratory chest tightness 10/19/2017 Respiratory cough 10/19/2017 Respiratory dyspnea on exertion 10/19/2017 Respiratory No dyspnea 10/19/2017 Respiratory No pedal edema 10/19/2017 Gastrointestinal No abdominal pain 10/19/2017 Gastrointestinal No constipation 10/19/2017 Gastrointestinal No diarrhea 10/19/2017 Gastrointestinal No gastroesophageal reflux 10/19/2017 Gastrointestinal No nausea 10/19/2017 Gastrointestinal No vomiting 10/19/2017 Genitourinary/Nephrology No dysuria 10/19/2017 Genitourinary/Nephrology impotence 10/19/2017 Genitourinary/Nephrology No nocturia 10/19/2017 Genitourinary/Nephrology No urinary incontinence 10/19/2017 Musculoskeletal No stiffness 10/19/2017 Musculoskeletal No swelling 10/19/2017 Musculoskeletal arthralgia(s) 10/19/2017 Musculoskeletal muscle weakness 10/19/2017 Musculoskeletal No myalgias 10/19/2017 Dermatologic No rash 10/19/2017 Dermatologic No sores 10/19/2017 Neurologic No dizziness 10/19/2017 Neurologic No headache 10/19/2017 Neurologic No neck pain 10/19/2017 Neurologic No syncope 10/19/2017 Psychiatric No anxiety 10/19/2017 Psychiatric No depression 10/19/2017 Constitutional fatigue 10/19/2017 Musculoskeletal sciatica 10/19/2017 Constitutional No recent illness 06/11/2017 Constitutional No chills 06/11/2017 Constitutional No fever 06/11/2017 Constitutional No insomnia 06/11/2017 Constitutional malaise 06/11/2017 Eyes No vision change 06/11/2017 Ears/Nose/Throat/Neck No dizziness 06/11/2017 Ears/Nose/Throat/Neck No dysphagia 06/11/2017 Ears/Nose/Throat/Neck No headache 06/11/2017 Ears/Nose/Throat/Neck hearing loss 06/11/2017 Ears/Nose/Throat/Neck No nasal allergies 06/11/2017 Ears/Nose/Throat/Neck No sore throat 06/11/2017 Ears/Nose/Throat/Neck No postnasal drip 06/11/2017 Cardiovascular No chest pain/pressure 06/11/2017 Cardiovascular dyspnea 06/11/2017 Cardiovascular No edema 06/11/2017 Cardiovascular exercise intolerance 06/11/2017 Cardiovascular No fatigue 06/11/2017 Cardiovascular No near-syncope/dizziness 06/11/2017 Respiratory chest tightness 06/11/2017 Respiratory No cough 06/11/2017 Respiratory dyspnea on exertion 06/11/2017 Respiratory No dyspnea 06/11/2017 Respiratory No pedal edema 06/11/2017 Gastrointestinal No abdominal pain 06/11/2017 Gastrointestinal No constipation 06/11/2017 Gastrointestinal No diarrhea 06/11/2017 Gastrointestinal No gastroesophageal reflux 06/11/2017 Gastrointestinal No nausea 06/11/2017 Gastrointestinal No vomiting 06/11/2017 Genitourinary/Nephrology No dysuria 06/11/2017 Genitourinary/Nephrology impotence 06/11/2017 Musculoskeletal No stiffness 06/11/2017 Musculoskeletal No swelling 06/11/2017 Musculoskeletal No muscle weakness 06/11/2017 Musculoskeletal No myalgias 06/11/2017 Dermatologic No rash 06/11/2017 Dermatologic No sores 06/11/2017 Neurologic No dizziness 06/11/2017 Neurologic No headache 06/11/2017 Neurologic No neck pain 06/11/2017 Neurologic No syncope 06/11/2017 Psychiatric No anxiety 06/11/2017 Psychiatric No depression 06/11/2017 Endocrine diabetes mellitus type 2 06/11/2017 Musculoskeletal back pain 06/11/2017 Constitutional No recent illness 02/23/2017 Constitutional No chills 02/23/2017 Constitutional No fever 02/23/2017 Constitutional No insomnia 02/23/2017 Constitutional malaise 02/23/2017 Eyes No vision change 02/23/2017 Ears/Nose/Throat/Neck No dizziness 02/23/2017 Ears/Nose/Throat/Neck No dysphagia 02/23/2017 Ears/Nose/Throat/Neck No headache 02/23/2017 Ears/Nose/Throat/Neck hearing loss 02/23/2017 Ears/Nose/Throat/Neck No nasal allergies 02/23/2017 Ears/Nose/Throat/Neck No sore throat 02/23/2017 Ears/Nose/Throat/Neck No postnasal drip 02/23/2017 Cardiovascular No chest pain/pressure 02/23/2017 Cardiovascular dyspnea 02/23/2017 Cardiovascular No edema 02/23/2017 Cardiovascular exercise intolerance 02/23/2017 Cardiovascular No fatigue 02/23/2017 Cardiovascular No near-syncope/dizziness 02/23/2017 Respiratory chest tightness 02/23/2017 Respiratory cough 02/23/2017 Respiratory dyspnea on exertion 02/23/2017 Respiratory No dyspnea 02/23/2017 Respiratory No pedal edema 02/23/2017 Gastrointestinal No abdominal pain 02/23/2017 Gastrointestinal No constipation 02/23/2017 Gastrointestinal No diarrhea 02/23/2017 Gastrointestinal No gastroesophageal reflux 02/23/2017 Gastrointestinal No nausea 02/23/2017 Gastrointestinal No vomiting 02/23/2017 Genitourinary/Nephrology No dysuria 02/23/2017 Genitourinary/Nephrology impotence 02/23/2017 Genitourinary/Nephrology No nocturia 02/23/2017 Genitourinary/Nephrology No urinary incontinence 02/23/2017 Musculoskeletal No stiffness 02/23/2017 Musculoskeletal No swelling 02/23/2017 Musculoskeletal muscle weakness 02/23/2017 Musculoskeletal No myalgias 02/23/2017 Dermatologic No rash 02/23/2017 Dermatologic No sores 02/23/2017 Neurologic No dizziness 02/23/2017 Neurologic No headache 02/23/2017 Neurologic No neck pain 02/23/2017 Neurologic No syncope 02/23/2017 Psychiatric No anxiety 02/23/2017 Psychiatric No depression 02/23/2017 Musculoskeletal arthralgia(s) 02/23/2017 Constitutional No recent illness 11/17/2016 Constitutional No chills 11/17/2016 Constitutional No fever 11/17/2016 Constitutional No insomnia 11/17/2016 Constitutional malaise 11/17/2016 Eyes No vision change 11/17/2016 Ears/Nose/Throat/Neck No dizziness 11/17/2016 Ears/Nose/Throat/Neck No dysphagia 11/17/2016 Ears/Nose/Throat/Neck No headache 11/17/2016 Ears/Nose/Throat/Neck hearing loss 11/17/2016 Ears/Nose/Throat/Neck No nasal allergies 11/17/2016 Ears/Nose/Throat/Neck No sore throat 11/17/2016 Ears/Nose/Throat/Neck No postnasal drip 11/17/2016 Cardiovascular No chest pain/pressure 11/17/2016 Cardiovascular dyspnea 11/17/2016 Cardiovascular No edema 11/17/2016 Cardiovascular exercise intolerance 11/17/2016 Cardiovascular No fatigue 11/17/2016 Cardiovascular No near-syncope/dizziness 11/17/2016 Respiratory chest tightness 11/17/2016 Respiratory No cough 11/17/2016 Respiratory No dyspnea 11/17/2016 Respiratory No pedal edema 11/17/2016 Gastrointestinal No abdominal pain 11/17/2016 Gastrointestinal No constipation 11/17/2016 Gastrointestinal No diarrhea 11/17/2016 Gastrointestinal No gastroesophageal reflux 11/17/2016 Gastrointestinal No nausea 11/17/2016 Gastrointestinal No vomiting 11/17/2016 Genitourinary/Nephrology No dysuria 11/17/2016 Genitourinary/Nephrology No nocturia 11/17/2016 Genitourinary/Nephrology No urinary incontinence 11/17/2016 Musculoskeletal No stiffness 11/17/2016 Musculoskeletal No swelling 11/17/2016 Musculoskeletal No muscle weakness 11/17/2016 Musculoskeletal No myalgias 11/17/2016 Dermatologic No rash 11/17/2016 Dermatologic No sores 11/17/2016 Neurologic No dizziness 11/17/2016 Neurologic No headache 11/17/2016 Neurologic No neck pain 11/17/2016 Neurologic No syncope 11/17/2016 Psychiatric No anxiety 11/17/2016 Psychiatric No depression 11/17/2016 Respiratory dyspnea on exertion 11/17/2016 Genitourinary/Nephrology impotence 11/17/2016 Physical Exam Exam Name System Name Item Name Status Result Effective Dates Notes Full Exam - General 1994 Constitutional general appearance Development: well developed 06/21/2018 None Full Exam - General 1994 Constitutional general appearance Development: appears stated age 0506/21/2018 None Full Exam - General 1994 Constitutional general appearance Hygiene/Attention to Grooming: good hygiene 06/21/2018 None Full Exam - General 1994 Eyes conjunctiva/eyelids Overall: conjunctiva clear 06/21/2018 None Full Exam - General 1994 Eyes conjunctiva/eyelids Overall: cornea clear 06/21/2018 None Full Exam - General 1994 Eyes conjunctiva/eyelids Overall: eyelids normal 06/21/2018 None Full Exam - General 1994 Eyes pupils and irises Overall: pupils equal, round, reactive to light and accomodation 06/21/2018 None Full Exam - General 1994 Ears/Nose/Throat lips/teeth/gingiva Overall: benign lips 06/21/2018 None Full Exam - General 1994 Ears/Nose/Throat lips/teeth/gingiva Overall: normal dentition 06/21/2018 None Full Exam - General 1994 Ears/Nose/Throat oral cavity/pharynx/larynx Overall: oral mucosa clear 06/21/2018 None Full Exam - General 1995 Ears/Nose/Throat oral cavity/pharynx/larynx Overall: oropharyngeal mucosa clear 06/21/2018 None Full Exam - General 1995 Ears/Nose/Throat oral cavity/pharynx/larynx Overall: hypopharynx benign 06/21/2018 None Full Exam - General 1994 Ears/Nose/Throat oral cavity/pharynx/larynx Overall: no masses 06/21/2018 None Full Exam - General 1994 Respiratory auscultation Diffuse: diminished 06/21/2018 None Full Exam - General 1994 Respiratory auscultation Diffuse: crackles 06/21/2018 in left and right base - very faint - cleared a little after coughing Full Exam - General 1994 Respiratory respiratory effort/rhythm Overall: no retractions 06/21/2018 None Full Exam - General 1994 Respiratory respiratory effort/rhythm Overall: normal rate 06/21/2018 None Full Exam - General 1994 Cardiovascular extremities Overall: no clubbing 06/21/2018 None Full Exam - General 1994 Cardiovascular auscultation of heart Overall: regular rate 06/21/2018 None Full Exam - General 1994 Cardiovascular auscultation of heart Overall: normal heart sounds 06/21/2018 None Full Exam - General 1994 Abdomen abdominal exam Overall: normal bowel sounds 06/21/2018 None Full Exam - General 1994 Musculoskeletal head and neck Overall: head atraumatic 06/21/2018 None Full Exam - General 1994 Musculoskeletal head and neck Overall: cervical spine benign 06/21/2018 None Full Exam - General 1994 Neurologic cranial nerves Overall: crainial nerves 2 - 12 grossly intact 06/21/2018 None Full Exam - General 1994 Psychiatric orientation/consciousness Overall: oriented to person, place and time 06/21/2018 None Full Exam - General 1994 Psychiatric mood and affect Overall: normal mood and affect 06/21/2018 None Full Exam - General 1994 Abdomen abdominal exam Overall: no tenderness 06/21/2018 None Full Exam - General 1994 Constitutional general appearance Development: well developed 02/15/2018 None Full Exam - General 1994 Constitutional general appearance Development: appears stated age 0102/15/2018 None Full Exam - General 1994 Constitutional general appearance Hygiene/Attention to Grooming: good hygiene 02/15/2018 None Full Exam - General 1994 Eyes conjunctiva/eyelids Overall: conjunctiva clear 02/15/2018 None Full Exam - General 1994 Eyes conjunctiva/eyelids Overall: cornea clear 02/15/2018 None Full Exam - General 1994 Eyes conjunctiva/eyelids Overall: eyelids normal 02/15/2018 None Full Exam - General 1994 Eyes pupils and irises Overall: pupils equal, round, reactive to light and accomodation 02/15/2018 None Full Exam - General 1994 Ears/Nose/Throat otoscopic exam Overall: external auditory canals clear 02/15/2018 None Full Exam - General 1994 Ears/Nose/Throat otoscopic exam Overall: tympanic membranes clear 02/15/2018 None Full Exam - General 1994 Ears/Nose/Throat lips/teeth/gingiva Overall: benign lips 02/15/2018 None Full Exam - General 1995 Ears/Nose/Throat lips/teeth/gingiva Overall: normal dentition 02/15/2018 None Full Exam - General 1995 Ears/Nose/Throat oral cavity/pharynx/larynx Overall: oral mucosa clear 02/15/2018 None Full Exam - General 1995 Ears/Nose/Throat oral cavity/pharynx/larynx Overall: oropharyngeal mucosa clear 02/15/2018 None Full Exam - General 1995 Ears/Nose/Throat oral cavity/pharynx/larynx Overall: hypopharynx benign 02/15/2018 None Full Exam - General 1994 Ears/Nose/Throat oral cavity/pharynx/larynx Overall: no masses 02/15/2018 None Full Exam - General 1994 Respiratory auscultation Diffuse: diminished 02/15/2018 None Full Exam - General 1994 Respiratory auscultation Diffuse: crackles 02/15/2018 in left and right base - very faint - cleared a little after coughing Full Exam - General 1994 Respiratory respiratory effort/rhythm Overall: no retractions 02/15/2018 None Full Exam - General 1994 Respiratory respiratory effort/rhythm Overall: normal rate 02/15/2018 None Full Exam - General 1994 Cardiovascular extremities Overall: no clubbing 02/15/2018 None Full Exam - General 1994 Cardiovascular auscultation of heart Overall: regular rate 02/15/2018 None Full Exam - General 1994 Cardiovascular auscultation of heart Overall: normal heart sounds 02/15/2018 None Full Exam - General 1994 Abdomen abdominal exam Overall: no tenderness 02/15/2018 None Full Exam - General 1994 Abdomen abdominal exam Overall: normal bowel sounds 02/15/2018 None Full Exam - General 1994 Lymphatic neck nodes Overall: anterior cervical chain benign 02/15/2018 None Full Exam - General 1994 Lymphatic neck nodes Overall: posterior cervical chain benign 02/15/2018 None Full Exam - General 1994 Musculoskeletal spine, ribs and pelvis Overall: spine benign 02/15/2018 None Full Exam - General 1994 Musculoskeletal spine, ribs and pelvis Overall: sacroiliac joint benign 02/15/2018 None Full Exam - General 1994 Musculoskeletal spine, ribs and pelvis Overall: good posture 02/15/2018 None Full Exam - General 1994 Musculoskeletal head and neck Overall: head atraumatic 02/15/2018 None Full Exam - General 1994 Musculoskeletal head and neck Overall: cervical spine benign 02/15/2018 None Full Exam - General 1994 Neurologic cranial nerves Overall: crainial nerves 2 - 12 grossly intact 02/15/2018 None Full Exam - General 1994 Psychiatric orientation/consciousness Overall: oriented to person, place and time 02/15/2018 None Full Exam - General 1994 Psychiatric mood and affect Overall: normal mood and affect 02/15/2018 None Full Exam - General 1994 Constitutional general appearance Hygiene/Attention to Grooming: good hygiene 12/16/2017 None Full Exam - General 1994 Eyes conjunctiva/eyelids Overall: conjunctiva clear 12/16/2017 None Full Exam - General 1994 Eyes conjunctiva/eyelids Overall: cornea clear 12/16/2017 None Full Exam - General 1994 Eyes conjunctiva/eyelids Overall: eyelids normal 12/16/2017 None Full Exam - General 1994 Ears/Nose/Throat lips/teeth/gingiva Overall: benign lips 12/16/2017 None Full Exam - General 1994 Ears/Nose/Throat oral cavity/pharynx/larynx Overall: oral mucosa clear 12/16/2017 None Full Exam - General 1994 Respiratory respiratory effort/rhythm Overall: no retractions 12/16/2017 None Full Exam - General 1994 Respiratory respiratory effort/rhythm Overall: normal rate 12/16/2017 None Full Exam - General 1994 Cardiovascular extremities Overall: no clubbing 12/16/2017 None Full Exam - General 1994 Musculoskeletal spine, ribs and pelvis Overall: good posture 12/16/2017 None Full Exam - General 1994 Musculoskeletal head and neck Overall: head atraumatic 12/16/2017 None Full Exam - General 1994 Musculoskeletal head and neck Overall: cervical spine benign 12/16/2017 None Full Exam - General 1994 Neurologic cranial nerves Overall: crainial nerves 2 - 12 grossly intact 12/16/2017 None Full Exam - General 1994 Psychiatric mood and affect Overall: normal mood and affect 12/16/2017 None Full Exam - General 1994 Constitutional general appearance Overall: well developed 12/16/2017 None Full Exam - General 1994 Constitutional general appearance Overall: in no acute distress 12/16/2017 None Full Exam - General 1994 Constitutional general appearance Overall: well nourished 12/16/2017 None Full Exam - General 1994 Psychiatric orientation/consciousness Overall: oriented to person, place and time 12/16/2017 None Full Exam - General 1994 Constitutional general appearance Development: well developed 10/19/2017 None Full Exam - General 1994 Constitutional general appearance Development: appears stated age 0910/19/2017 None Full Exam - General 1994 Constitutional general appearance Hygiene/Attention to Grooming: good hygiene 10/19/2017 None Full Exam - General 1994 Eyes conjunctiva/eyelids Overall: conjunctiva clear 10/19/2017 None Full Exam - General 1994 Eyes conjunctiva/eyelids Overall: cornea clear 10/19/2017 None Full Exam - General 1994 Eyes conjunctiva/eyelids Overall: eyelids normal 10/19/2017 None Full Exam - General 1994 Eyes pupils and irises Overall: pupils equal, round, reactive to light and accomodation 10/19/2017 None Full Exam - General 1994 Ears/Nose/Throat otoscopic exam Overall: external auditory canals clear 10/19/2017 None Full Exam - General 1994 Ears/Nose/Throat otoscopic exam Overall: tympanic membranes clear 10/19/2017 None Full Exam - General 1994 Ears/Nose/Throat lips/teeth/gingiva Overall: benign lips 10/19/2017 None Full Exam - General 1994 Ears/Nose/Throat lips/teeth/gingiva Overall: normal dentition 10/19/2017 None Full Exam - General 1994 Ears/Nose/Throat oral cavity/pharynx/larynx Overall: oral mucosa clear 10/19/2017 None Full Exam - General 1994 Ears/Nose/Throat oral cavity/pharynx/larynx Overall: oropharyngeal mucosa clear 10/19/2017 None Full Exam - General 1994 Ears/Nose/Throat oral cavity/pharynx/larynx Overall: hypopharynx benign 10/19/2017 None Full Exam - General 1994 Ears/Nose/Throat oral cavity/pharynx/larynx Overall: no masses 10/19/2017 None Full Exam - General 1994 Respiratory auscultation Diffuse: diminished 10/19/2017 None Full Exam - General 1994 Respiratory auscultation Diffuse: crackles 10/19/2017 in left and right base - very faint - cleared a little after coughing Full Exam - General 1994 Respiratory respiratory effort/rhythm Overall: no retractions 10/19/2017 None Full Exam - General 1994 Respiratory respiratory effort/rhythm Overall: normal rate 10/19/2017 None Full Exam - General 1994 Cardiovascular extremities Overall: no clubbing 10/19/2017 None Full Exam - General 1994 Cardiovascular auscultation of heart Overall: regular rate 10/19/2017 None Full Exam - General 1994 Cardiovascular auscultation of heart Overall: normal heart sounds 10/19/2017 None Full Exam - General 1994 Abdomen abdominal exam Overall: no tenderness 10/19/2017 None Full Exam - General 1994 Abdomen abdominal exam Overall: normal bowel sounds 10/19/2017 None Full Exam - General 1994 Lymphatic neck nodes Overall: anterior cervical chain benign 10/19/2017 None Full Exam - General 1994 Lymphatic neck nodes Overall: posterior cervical chain benign 10/19/2017 None Full Exam - General 1994 Musculoskeletal spine, ribs and pelvis Overall: spine benign 10/19/2017 None Full Exam - General 1994 Musculoskeletal spine, ribs and pelvis Overall: sacroiliac joint benign 10/19/2017 None Full Exam - General 1994 Musculoskeletal spine, ribs and pelvis Overall: good posture 10/19/2017 None Full Exam - General 1994 Musculoskeletal head and neck Overall: head atraumatic 10/19/2017 None Full Exam - General 1994 Musculoskeletal head and neck Overall: cervical spine benign 10/19/2017 None Full Exam - General 1994 Integument inspection of skin Overall: few scattered moles, no gross abnormalities 10/19/2017 None Full Exam - General 1994 Neurologic deep tendon reflexes Overall: deep tendon reflexes intact 10/19/2017 None Full Exam - General 1994 Neurologic gait Overall: no ataxia, no unsteadiness 10/19/2017 None Full Exam - General 1994 Neurologic cranial nerves Overall: crainial nerves 2 - 12 grossly intact 10/19/2017 None Full Exam - General 1994 Psychiatric orientation/consciousness Overall: oriented to person, place and time 10/19/2017 None Full Exam - General 1994 Psychiatric mood and affect Overall: normal mood and affect 10/19/2017 None Full Exam - General 1994 Constitutional general appearance Development: well developed 06/11/2017 None Full Exam - General 1994 Constitutional general appearance Development: appears stated age 0506/11/2017 None Full Exam - General 1994 Constitutional general appearance Hygiene/Attention to Grooming: good hygiene 06/11/2017 None Full Exam - General 1994 Eyes conjunctiva/eyelids Overall: conjunctiva clear 06/11/2017 None Full Exam - General 1994 Eyes conjunctiva/eyelids Overall: cornea clear 06/11/2017 None Full Exam - General 1994 Eyes conjunctiva/eyelids Overall: eyelids normal 06/11/2017 None Full Exam - General 1994 Eyes pupils and irises Overall: pupils equal, round, reactive to light and accomodation 06/11/2017 None Full Exam - General 1994 Ears/Nose/Throat otoscopic exam Overall: external auditory canals clear 06/11/2017 None Full Exam - General 1994 Ears/Nose/Throat otoscopic exam Overall: tympanic membranes clear 06/11/2017 None Full Exam - General 1994 Ears/Nose/Throat lips/teeth/gingiva Overall: benign lips 06/11/2017 None Full Exam - General 1994 Ears/Nose/Throat lips/teeth/gingiva Overall: normal dentition 06/11/2017 None Full Exam - General 1994 Ears/Nose/Throat oral cavity/pharynx/larynx Overall: oral mucosa clear 06/11/2017 None Full Exam - General 1994 Ears/Nose/Throat oral cavity/pharynx/larynx Overall: oropharyngeal mucosa clear 06/11/2017 None Full Exam - General 1994 Ears/Nose/Throat oral cavity/pharynx/larynx Overall: hypopharynx benign 06/11/2017 None Full Exam - General 1994 Ears/Nose/Throat oral cavity/pharynx/larynx Overall: no masses 06/11/2017 None Full Exam - General 1994 Respiratory auscultation Diffuse: diminished 06/11/2017 None Full Exam - General 1994 Respiratory respiratory effort/rhythm Overall: no retractions 06/11/2017 None Full Exam - General 1994 Respiratory respiratory effort/rhythm Overall: normal rate 06/11/2017 None Full Exam - General 1994 Cardiovascular extremities Overall: no clubbing 06/11/2017 None Full Exam - General 1994 Cardiovascular auscultation of heart Overall: regular rate 06/11/2017 None Full Exam - General 1994 Cardiovascular auscultation of heart Overall: normal heart sounds 06/11/2017 None Full Exam - General 1994 Abdomen abdominal exam Overall: no tenderness 06/11/2017 None Full Exam - General 1994 Abdomen abdominal exam Overall: normal bowel sounds 06/11/2017 None Full Exam - General 1994 Musculoskeletal spine, ribs and pelvis Overall: spine benign 06/11/2017 None Full Exam - General 1994 Musculoskeletal spine, ribs and pelvis Overall: sacroiliac joint benign 06/11/2017 None Full Exam - General 1994 Musculoskeletal spine, ribs and pelvis Overall: good posture 06/11/2017 None Full Exam - General 1994 Musculoskeletal head and neck Overall: head atraumatic 06/11/2017 None Full Exam - General 1994 Musculoskeletal head and neck Overall: cervical spine benign 06/11/2017 None Full Exam - General 1994 Integument inspection of skin Overall: few scattered moles, no gross abnormalities 06/11/2017 None Full Exam - General 1994 Psychiatric orientation/consciousness Overall: oriented to person, place and time 06/11/2017 None Full Exam - General 1994 Psychiatric mood and affect Overall: normal mood and affect 06/11/2017 None Full Exam - General 1994 Constitutional general appearance Development: well developed 02/23/2017 None Full Exam - General 1994 Constitutional general appearance Development: appears stated age 0102/23/2017 None Full Exam - General 1994 Constitutional general appearance Hygiene/Attention to Grooming: good hygiene 02/23/2017 None Full Exam - General 1994 Eyes conjunctiva/eyelids Overall: conjunctiva clear 02/23/2017 None Full Exam - General 1994 Eyes conjunctiva/eyelids Overall: cornea clear 02/23/2017 None Full Exam - General 1994 Eyes conjunctiva/eyelids Overall: eyelids normal 02/23/2017 None Full Exam - General 1994 Eyes pupils and irises Overall: pupils equal, round, reactive to light and accomodation 02/23/2017 None Full Exam - General 1994 Ears/Nose/Throat otoscopic exam Overall: external auditory canals clear 02/23/2017 None Full Exam - General 1994 Ears/Nose/Throat otoscopic exam Overall: tympanic membranes clear 02/23/2017 None Full Exam - General 1994 Ears/Nose/Throat lips/teeth/gingiva Overall: benign lips 02/23/2017 None Full Exam - General 1994 Ears/Nose/Throat lips/teeth/gingiva Overall: normal dentition 02/23/2017 None Full Exam - General 1994 Ears/Nose/Throat oral cavity/pharynx/larynx Overall: oral mucosa clear 02/23/2017 None Full Exam - General 1994 Ears/Nose/Throat oral cavity/pharynx/larynx Overall: oropharyngeal mucosa clear 02/23/2017 None Full Exam - General 1994 Ears/Nose/Throat oral cavity/pharynx/larynx Overall: hypopharynx benign 02/23/2017 None Full Exam - General 1994 Ears/Nose/Throat oral cavity/pharynx/larynx Overall: no masses 02/23/2017 None Full Exam - General 1994 Respiratory auscultation Diffuse: diminished 02/23/2017 None Full Exam - General 1994 Respiratory respiratory effort/rhythm Overall: no retractions 02/23/2017 None Full Exam - General 1994 Respiratory respiratory effort/rhythm Overall: normal rate 02/23/2017 None Full Exam - General 1994 Cardiovascular extremities Overall: no clubbing 02/23/2017 None Full Exam - General 1994 Cardiovascular auscultation of heart Overall: regular rate 02/23/2017 None Full Exam - General 1994 Cardiovascular auscultation of heart Overall: normal heart sounds 02/23/2017 None Full Exam - General 1994 Abdomen abdominal exam Overall: no tenderness 02/23/2017 None Full Exam - General 1994 Abdomen abdominal exam Overall: normal bowel sounds 02/23/2017 None Full Exam - General 1994 Lymphatic neck nodes Overall: anterior cervical chain benign 02/23/2017 None Full Exam - General 1994 Lymphatic neck nodes Overall: posterior cervical chain benign 02/23/2017 None Full Exam - General 1994 Musculoskeletal spine, ribs and pelvis Overall: spine benign 02/23/2017 None Full Exam - General 1994 Musculoskeletal spine, ribs and pelvis Overall: sacroiliac joint benign 02/23/2017 None Full Exam - General 1994 Musculoskeletal spine, ribs and pelvis Overall: good posture 02/23/2017 None Full Exam - General 1994 Musculoskeletal head and neck Overall: head atraumatic 02/23/2017 None Full Exam - General 1994 Musculoskeletal head and neck Overall: cervical spine benign 02/23/2017 None Full Exam - General 1994 Integument inspection of skin Overall: few scattered moles, no gross abnormalities 02/23/2017 None Full Exam - General 1994 Neurologic deep tendon reflexes Overall: deep tendon reflexes intact 02/23/2017 None Full Exam - General 1994 Neurologic gait Overall: no ataxia, no unsteadiness 02/23/2017 None Full Exam - General 1994 Neurologic cranial nerves Overall: crainial nerves 2 - 12 grossly intact 02/23/2017 None Full Exam - General 1994 Psychiatric orientation/consciousness Overall: oriented to person, place and time 02/23/2017 None Full Exam - General 1994 Psychiatric mood and affect Overall: normal mood and affect 02/23/2017 None Full Exam - General 1994 Respiratory auscultation Diffuse: crackles 02/23/2017 in left and right base - very faint - cleared a little after coughing Full Exam - General 1994 Constitutional general appearance Development: well developed 11/17/2016 None Full Exam - General 1994 Constitutional general appearance Development: appears stated age 1011/17/2016 None Full Exam - General 1994 Constitutional general appearance Hygiene/Attention to Grooming: good hygiene 11/17/2016 None Full Exam - General 1994 Eyes conjunctiva/eyelids Overall: conjunctiva clear 11/17/2016 None Full Exam - General 1994 Eyes conjunctiva/eyelids Overall: cornea clear 11/17/2016 None Full Exam - General 1994 Eyes conjunctiva/eyelids Overall: eyelids normal 11/17/2016 None Full Exam - General 1994 Eyes pupils and irises Overall: pupils equal, round, reactive to light and accomodation 11/17/2016 None Full Exam - General 1994 Ears/Nose/Throat otoscopic exam Overall: external auditory canals clear 11/17/2016 None Full Exam - General 1994 Ears/Nose/Throat otoscopic exam Overall: tympanic membranes clear 11/17/2016 None Full Exam - General 1994 Ears/Nose/Throat lips/teeth/gingiva Overall: benign lips 11/17/2016 None Full Exam - General 1994 Ears/Nose/Throat lips/teeth/gingiva Overall: normal dentition 11/17/2016 None Full Exam - General 1994 Ears/Nose/Throat oral cavity/pharynx/larynx Overall: oral mucosa clear 11/17/2016 None Full Exam - General 1995 Ears/Nose/Throat oral cavity/pharynx/larynx Overall: oropharyngeal mucosa clear 11/17/2016 None Full Exam - General 1994 Ears/Nose/Throat oral cavity/pharynx/larynx Overall: hypopharynx benign 11/17/2016 None Full Exam - General 1994 Ears/Nose/Throat oral cavity/pharynx/larynx Overall: no masses 11/17/2016 None Full Exam - General 1994 Respiratory respiratory effort/rhythm Overall: no retractions 11/17/2016 None Full Exam - General 1994 Respiratory respiratory effort/rhythm Overall: normal rate 11/17/2016 None Full Exam - General 1994 Cardiovascular extremities Overall: no clubbing 11/17/2016 None Full Exam - General 1994 Cardiovascular auscultation of heart Overall: regular rate 11/17/2016 None Full Exam - General 1994 Cardiovascular auscultation of heart Overall: normal heart sounds 11/17/2016 None Full Exam - General 1994 Abdomen abdominal exam Overall: no tenderness 11/17/2016 None Full Exam - General 1994 Abdomen abdominal exam Overall: normal bowel sounds 11/17/2016 None Full Exam - General 1994 Lymphatic neck nodes Overall: anterior cervical chain benign 11/17/2016 None Full Exam - General 1994 Lymphatic neck nodes Overall: posterior cervical chain benign 11/17/2016 None Full Exam - General 1994 Musculoskeletal spine, ribs and pelvis Overall: spine benign 11/17/2016 None Full Exam - General 1994 Musculoskeletal spine, ribs and pelvis Overall: sacroiliac joint benign 11/17/2016 None Full Exam - General 1994 Musculoskeletal spine, ribs and pelvis Overall: good posture 11/17/2016 None Full Exam - General 1994 Musculoskeletal head and neck Overall: head atraumatic 11/17/2016 None Full Exam - General 1994 Musculoskeletal head and neck Overall: cervical spine benign 11/17/2016 None Full Exam - General 1994 Integument inspection of skin Overall: few scattered moles, no gross abnormalities 11/17/2016 None Full Exam - General 1994 Neurologic deep tendon reflexes Overall: deep tendon reflexes intact 11/17/2016 None Full Exam - General 1994 Neurologic cranial nerves Overall: crainial nerves 2 - 12 grossly intact 11/17/2016 None Full Exam - General 1994 Psychiatric orientation/consciousness Overall: oriented to person, place and time 11/17/2016 None Full Exam - General 1994 Psychiatric mood and affect Overall: normal mood and affect 11/17/2016 None Full Exam - General 1994 Respiratory auscultation Diffuse: diminished 11/17/2016 None Full Exam - General 1994 Neurologic gait Overall: no ataxia, no unsteadiness 11/17/2016 None Procedures Procedure Codes Date ADMIN INFLUENZA VIRUS VAC CPT-4: G0008 10/19/2017 FLU VACC PRSV FREE INC ANTIG CPT-4: 48084 10/19/2017 ADMIN PNEUMOCOCCAL VACCINE SNOMED CT: 86266154 CPT-4: G0009 11/19/2016 PNEUMOCOCCAL VACC [address]: 31781780 CPT-4: 93367 11/19/2016 ADMIN INFLUENZA VIRUS VAC CPT-4: G0008 11/17/2016 FLU VACC PRSV FREE INC ANTIG CPT-4: 00930 11/17/2016 Vital Signs Date Vital 06/21/2018 Blood Pressure 1: 120/62 Code: 8480-6 BMI: 34.0 Code: 00214-0 Heart Rate 1: 55 bpm Height: 5'11" SpO2: 94% Weight: 244 lbs 02/15/2018 Blood Pressure 1: 118/62 Code: 8480-6 BMI: 32.5 Code: 45373-0 Heart Rate 1: 63 bpm Height: 5'11" SpO2: 98% Weight: 233 lbs 12/16/2017 Blood Pressure 1: 130/74 Code: 8480-6 BMI: 32.4 Code: 34191-6 Heart Rate 1: 58 bpm Height: 5'11" SpO2: 95% Weight: 232 lbs 10/19/2017 Blood Pressure 1: 132/70 Code: 8480-6 BMI: 33.1 Code: 69161-2 Heart Rate 1: 54 bpm Height: 5'11" SpO2: 97% Weight: 237 lbs 06/11/2017 Blood Pressure 1: 126/74 Code: 8480-6 BMI: 33.8 Code: 50703-1 Heart Rate 1: 60 bpm Height: 5'11" SpO2: 94% Weight: 242 lbs 8 oz 02/23/2017 Blood Pressure 1: 138/82 Code: 8480-6 BMI: 33.8 Code: 78502-9 Heart Rate 1: 65 bpm Height: 5'11" SpO2: 94% Weight: 242 lbs 11/17/2016 Blood Pressure 1: 132/70 Code: 8480-6 BMI: 33.6 Code: 68362-4 Heart Rate 1: 57 bpm Height: 5'11" SpO2: 94% Weight: 241 lbs Functional Status No Functional Status data History of Present Illness Symptom Name Status Result Effective Date Notes Quality chronic 06/21/2018 None Quality primary hypertension 06/21/2018 None Onset and Resolution ongoing 06/21/2018 None Onset of Symptom during adulthood 06/21/2018 None Blood Pressure Values patient checking blood pressure at home - did not bring in readings 06/21/2018 -Checks occasionally Alleviating Factors medication 06/21/2018 None Pertinent Findings decreased energy 06/21/2018 None Pertinent Findings Denies dizziness 06/21/2018 None Pertinent Findings dyspnea 06/21/2018 None Pertinent Findings Denies edema 06/21/2018 -Normally not- will have mild swelling if he rides in a car or sits for long periods Onset of Symptom onset as an adult 06/21/2018 None Quality non-insulin dependent 06/21/2018 None Quality chronic 06/21/2018 None Exacerbating Factors diet 06/21/2018 None Pertinent Findings Denies nausea 06/21/2018 None Pertinent Findings Denies numbness 06/21/2018 None Pertinent Findings Denies tingling 06/21/2018 None Test results Pt checking blood glucose readings, did not bring results to clinic 06/21/2018 None Glucose monitoring daily 06/21/2018 None Quality chronic 02/15/2018 None Quality primary hypertension 02/15/2018 None Onset and Resolution ongoing 02/15/2018 None Onset of Symptom during adulthood 02/15/2018 None Blood Pressure Values patient checking blood pressure at home - did not bring in readings 02/15/2018 -Checks occasionally Alleviating Factors medication 02/15/2018 None Pertinent Findings Denies dizziness 02/15/2018 None Pertinent Findings dyspnea 02/15/2018 None Pertinent Findings Denies edema 02/15/2018 -Normally not- will have mild swelling if he rides in a car or sits for long periods Onset of Symptom onset as an adult 02/15/2018 None Quality non-insulin dependent 02/15/2018 None Quality chronic 02/15/2018 None Exacerbating Factors diet 02/15/2018 None Pertinent Findings Denies nausea 02/15/2018 None Pertinent Findings Denies numbness 02/15/2018 None Pertinent Findings Denies tingling 02/15/2018 None Test results Pt checking blood glucose readings, did not bring results to clinic 02/15/2018 None Glucose monitoring occasional glucose testing 02/15/2018 None Pertinent Findings decreased energy 02/15/2018 None urinary frequency Quality constant 12/16/2017 None urinary frequency Onset and Resolution sudden in onset 12/16/2017 None urinary frequency Onset of Symptom 1 months ago 12/16/2017 None urinary frequency Frequency of Episodes hourly 12/16/2017 None urinary frequency Pertinent Findings urinary urgency 12/16/2017 None urinary incontinence Quality constant 12/16/2017 None urinary incontinence Quality urge incontinence 12/16/2017 None urinary incontinence Onset and Resolution gradual in onset 12/16/2017 None urinary retention/hesitancy Quality constant 12/16/2017 None urinary retention/hesitancy Quality reduced force of stream 12/16/2017 None urinary retention/hesitancy Quality reduced size of stream 12/16/2017 None urinary retention/hesitancy Quality hesitancy 12/16/2017 None urinary retention/hesitancy Onset and Resolution gradual in onset 12/16/2017 None urinary retention/hesitancy Onset of Symptom 1 months ago 12/16/2017 None urinary urgency Quality constant 12/16/2017 None urinary urgency Onset and Resolution gradual in onset 12/16/2017 None urinary urgency Onset of Symptom 1 months ago 12/16/2017 None hypertension Quality primary hypertension 10/19/2017 None hypertension Onset and Resolution ongoing 10/19/2017 None hypertension Onset of Symptom during adulthood 10/19/2017 None hypertension Alleviating Factors medication 10/19/2017 None hypertension Pertinent Findings Denies dizziness 10/19/2017 None hypertension Pertinent Findings dyspnea 10/19/2017 --about the same as usual hypertension Pertinent Findings Denies edema 10/19/2017 -Normally not- will have mild swelling if he rides in a car or sits for long periods diabetes mellitus Onset of Symptom onset as an adult 10/19/2017 None diabetes mellitus Quality non-insulin dependent 10/19/2017 None diabetes mellitus Quality chronic 10/19/2017 None diabetes mellitus Exacerbating Factors diet 10/19/2017 None diabetes mellitus Pertinent Findings Denies nausea 10/19/2017 None diabetes mellitus Pertinent Findings Denies numbness 10/19/2017 None leg pain/sciatica Location left leg sciatica 10/19/2017 None leg pain/sciatica Quality constant 10/19/2017 None leg pain/sciatica Onset and Resolution ongoing 10/19/2017 None leg pain/sciatica Limitation on Activities allows weight bearing activity 10/19/2017 None leg pain/sciatica Frequency of Episodes daily 10/19/2017 None leg pain/sciatica Significant Medications epidural steroids 10/19/2017 None hypertension Blood Pressure Values patient checking blood pressure at home - did not bring in readings 10/19/2017 -Checks occasionally diabetes mellitus Test results Pt checking blood glucose readings, did not bring results to clinic 10/19/2017 None diabetes mellitus Glucose monitoring occasional glucose testing 10/19/2017 None diabetes mellitus Pertinent Findings Denies tingling 10/19/2017 None hypertension Quality chronic 10/19/2017 None hypertension Quality primary hypertension 06/11/2017 None hypertension Onset and Resolution ongoing 06/11/2017 None hypertension Onset of Symptom during adulthood 06/11/2017 None hypertension Blood Pressure Values not checking blood pressure at home 06/11/2017 None hypertension Alleviating Factors medication 06/11/2017 None hypertension Pertinent Findings Denies dizziness 06/11/2017 None hypertension Pertinent Findings dyspnea 06/11/2017 --about the same as usual hypertension Pertinent Findings Denies edema 06/11/2017 -Normally not- will have mild swelling if he rides in a car or sits for long periods diabetes mellitus Onset of Symptom onset as an adult 06/11/2017 None diabetes mellitus Quality non-insulin dependent 06/11/2017 None diabetes mellitus Quality chronic 06/11/2017 None diabetes mellitus Exacerbating Factors diet 06/11/2017 None diabetes mellitus Pertinent Findings Denies nausea 06/11/2017 None leg pain/sciatica Location left leg sciatica 06/11/2017 None leg pain/sciatica Quality constant 06/11/2017 None leg pain/sciatica Onset and Resolution ongoing 06/11/2017 None leg pain/sciatica Limitation on Activities allows weight bearing activity 06/11/2017 None leg pain/sciatica Frequency of Episodes daily 06/11/2017 None leg pain/sciatica Significant Medications epidural steroids 06/11/2017 None diabetes mellitus Test results Pt checking blood glucose readings, did not bring results to clinic 06/11/2017 None diabetes mellitus Glucose monitoring occasional glucose testing 06/11/2017 None diabetes mellitus Pertinent Findings Denies nocturia 06/11/2017 None diabetes mellitus Pertinent Findings Denies numbness 06/11/2017 None hypertension Pertinent Findings Denies decreased energy 06/11/2017 None hypertension Pertinent Findings Denies anxiety 06/11/2017 None hypertension Onset and Resolution ongoing 02/23/2017 None hypertension Onset of Symptom during adulthood 02/23/2017 None hypertension Pertinent Findings Denies dizziness 02/23/2017 None hypertension Pertinent Findings dyspnea 02/23/2017 --about the same as usual hypertension Pertinent Findings Denies edema 02/23/2017 -Normally not- will have mild swelling if he rides in a car or sits for long periods diabetes mellitus Onset of Symptom onset as an adult 02/23/2017 None diabetes mellitus Quality chronic 02/23/2017 None diabetes mellitus Exacerbating Factors diet 02/23/2017 None diabetes mellitus Pertinent Findings Denies nausea 02/23/2017 None hypertension Quality primary hypertension 02/23/2017 None diabetes mellitus Quality non-insulin dependent 02/23/2017 None cough Quality acute 02/23/2017 None cough Onset of Symptom 1 months ago 02/23/2017 None cough Quality intermittent 02/23/2017 None cough Quality productive 02/23/2017 None cough Pertinent Findings sputum production 02/23/2017 (clear) cough Pertinent Findings Denies chills 02/23/2017 None cough Pertinent Findings Denies fever 02/23/2017 None cough Pertinent Findings nasal congestion 02/23/2017 None hypertension Blood Pressure Values not checking blood pressure at home 02/23/2017 None diabetes mellitus Test results Pt not checking blood glucose readings at home 02/23/2017 None hypertension Alleviating Factors medication 02/23/2017 None leg pain/sciatica Location left leg sciatica 02/23/2017 None leg pain/sciatica Quality constant 02/23/2017 None leg pain/sciatica Onset and Resolution ongoing 02/23/2017 None leg pain/sciatica Limitation on Activities allows weight bearing activity 02/23/2017 None leg pain/sciatica Frequency of Episodes daily 02/23/2017 None leg pain/sciatica Significant Medications epidural steroids 02/23/2017 None hypertension Onset and Resolution ongoing 11/17/2016 None hypertension Onset of Symptom during adulthood 11/17/2016 None hypertension Blood Pressure Values patient checking blood pressure at home - did not bring in readings 11/17/2016 -Checks rarely hypertension Pertinent Findings Denies dizziness 11/17/2016 None hypertension Pertinent Findings dyspnea 11/17/2016 None hypertension Pertinent Findings Denies edema 11/17/2016 -Normally not- will have mild swelling if he rides in a car for long periods or in the heat diabetes mellitus Test results Pt checking blood glucose readings, did not bring results to clinic 11/17/2016 -Checks rarely diabetes mellitus Glucose monitoring occasional glucose testing 11/17/2016 None diabetes mellitus Exacerbating Factors diet 11/17/2016 None diabetes mellitus Pertinent Findings Denies nausea 11/17/2016 None diabetes mellitus Onset of Symptom onset as an adult 11/17/2016 None diabetes mellitus Quality chronic 11/17/2016 None Advance Directives No Advance Directive data Encounters Encounter Performer Location Codes Date ([id number]) [id number] EST. PATIENT, LEVEL IV Diagnosis: Essential (primary) hypertension[ICD10: I10] Diagnosis: Type 2 diabetes mellitus without complications[ICD10: E11.9] Diagnosis: Testicular hypofunction[ICD10: E29.1] [facility] CPT-4: 15853 06/21/2018 ([id number]) 72398 EST. PATIENT, LEVEL IV Diagnosis: Essential (primary) hypertension[ICD10: I10] Diagnosis: Other emphysema[ICD10: J43.8] Diagnosis: Male erectile disorder[ICD10: F52.21] Diagnosis: Testicular hypofunction[ICD10: E29.1] Diagnosis: Type 2 diabetes mellitus without complications[ICD10: E11.9] [facility] CPT-4: 10840 02/15/2018 16095 EST. PATIENT, LEVEL IV Diagnosis: Benign prostatic hyperplasia with lower urinary tract symptoms[ICD10: N40.1] Diagnosis: Other retention of urine[ICD10: R33.8] Diagnosis: Hesitancy of micturition[ICD10: R39.11] Diagnosis: Testicular hypofunction[ICD10: E29.1] Tori Pruitt MD, [facility] CPT- 4: 13030 12/16/2017 ([id number]) [id number] EST. PATIENT, LEVEL IV Diagnosis: Type 2 diabetes mellitus without complications[ICD10: E11.9] Diagnosis: Essential (primary) hypertension[ICD10: I10] Diagnosis: Encounter for immunization[ICD10: Z23] Diagnosis: Other emphysema[ICD10: J43.8] Diagnosis: Testicular hypofunction[ICD10: E29.1] Lisa Pruitt MD, [facility] CPT-4: 72405 10/19/2017 ([id number]) 87810 EST. PATIENT, LEVEL IV Diagnosis: Type 2 diabetes mellitus without complications[ICD10: E11.9] Diagnosis: Essential (primary) hypertension[ICD10: I10] Diagnosis: Male erectile disorder[ICD10: F52.21] Diagnosis: Testicular hypofunction[ICD10: E29.1] Lisa Pruitt MD, [facility] CPT-4: 56701 06/11/2017 ([id number]) 04323 EST. PATIENT, LEVEL IV Diagnosis: Type 2 diabetes mellitus without complications[ICD10: E11.9] Diagnosis: Cough[ICD10: R05] Diagnosis: Other emphysema[ICD10: J43.8] Diagnosis: Male erectile disorder[ICD10: F52.21] Lisa Pruitt MD, [facility] CPT-4: 25586 02/23/2017 ([id number]) OFFICE VISIT, NEW - LEVEL 4 Diagnosis: Encounter for immunization[ICD10: Z23] Diagnosis: Type 2 diabetes mellitus without complications[ICD10: E11.9] Diagnosis: Essential (primary) hypertension[ICD10: I10] Diagnosis: Other emphysema[ICD10: J43.8] Diagnosis: Dependence on supplemental oxygen[ICD10: Z99.81] Diagnosis: Mixed hyperlipidemia[ICD10: E78.2] Lisa Pruitt MD, [facility] CPT- 4: 01315 11/17/2016 Plan of Care Planned Activity Notes Codes Status Date Visit Plan: Hypogonadism with extreme fatigue - - continue with current dosing of testosterone. Diabetes Mellitus - controlled - per recent FSBS reports. I have recommended for the patient to have follow up labs prior to the next office visit. The patient has been instructed to continue with current medications as previously directed, continue with regular FSBS monitoring to assure continued control of diabetes. Pt to call for any acute concerns, complaints, or if the blood glucose readings are starting to become less controlled. Hypertension -per his report - with fatigue - I am concerned that his blood pressures are going too low and he also has bradycardia - therefore decrease the metoprolol to 1/2 a pill (25mg) twice daily. Pt has been encouraged to exercise daily. The pt has been advised to call the office if there are any acute concerns about change in blood pressure readings at home. COPD - chronic problem for this patient. We have reviewed chronic treatment strategy, symptom control, and plans for acute exacerbations. No changes today to the current treatment plan as the patient is stable, monitor for acute changes. 06/21/2018 Appointment: Lisa Pruitt WPtel: [address] [place], [place] [phone] (15 min) Moderate 06/21/2018 Patient Education: Patient Medication Summary Completed 06/21/2018 Patient Education: Diabetes Completed 06/21/2018 Patient Education: Patient Medication Summary Completed 04/13/2018 Care Plan: Iron Pending 04/13/2018 Visit Plan: Hypogonadism with extreme fatigue - I have placed a phone call to Dr. Lynn about restarting testosterone at lower dose, she agrees to restarting the testosterone at 1/2 of previous dose - and repeat labs in 6 weeks. Diabetes Mellitus - controlled - per recent FSBS reports. I have recommended for the patient to have follow up labs prior to the next office visit. The patient has been instructed to continue with current medications as previously directed, continue with regular FSBS monitoring to assure continued control of diabetes. Pt to call for any acute concerns, complaints, or if the blood glucose readings are starting to become less controlled. Hypertension - well controlled - continue with current medications, continue with no added salt diet. Pt has been encouraged to exercise daily. The pt has been advised to call the office if there are any acute concerns about change in blood pressure readings at home. COPD - chronic problem for this patient. We have reviewed chronic treatment strategy, symptom control, and plans for acute exacerbations. No changes today to the current treatment plan as the patient is stable, monitor for acute changes. 02/15/2018 Appointment: [facility] [phone] [phone] [place] (15 min) Moderate 02/15/2018 Patient Education: Patient Medication Summary Completed 02/15/2018 Patient Education: Diabetes Completed 02/15/2018 Referral: Boogie Warren WPtel: [id number] [id number] Referral Initiated 01/06/2018 Care Plan: Referral Order SNOMED-CT : [id number] Pending 12/17/2017 Visit Plan: BPH - pt is to continue his flomax and follow up with Dr. Warren - will send RX for possible prostatitis - pt is to notify clinic if symptoms do not improve or with any changes, questions or concerns. Te sticular hypofunction - will check labs and treat as indicated 12/16/2017 Patient Education: Patient Medication Summary Completed 12/16/2017 Visit Plan: Hypertension - well controlled - continue with current medications, continue with no added salt diet. Pt has been encouraged to exercise daily. The pt has been advised to call the office if there are any acute concerns about change in blood pressure readings at home. Diabetes Mellitus - controlled - per recent FSBS reports. I have recommended for the patient to have follow up labs prior to the next office visit. The patient has been instructed to continue with current medications as previously directed, continue with regular FSBS monitoring to assure continued control of diabetes. Pt to call for any acute concerns, complaints, or if the blood glucose readings are starting to become less controlled. Emphysema with cough - continue with oxygen at 5 liters [place] - recommended patient to call if his cough worsens, shortness of breath worsens or if he develops a fever. Erectile dysfunction - continue with prn cialis Flu shot given to pt today - high dose due to his Emphysema 10/19/2017 Appointment: [facility] Pruitt [phone] [id number] [place] (15 min) Moderate 10/19/2017 Patient Education: Patient Medication Summary Completed 10/19/2017 Patient Education: Patient Medication Summary Completed 07/22/2017 Visit Plan: Diabetes Mellitus - controlled - per recent FSBS reports. I have recommended for the patient to have follow up labs prior to the next office visit. The patient has been instructed to continue with current medications as previously directed, continue with regular FSBS monitoring to assure continued control of diabetes. Pt to call for any acute concerns, complaints, or if the blood glucose readings are starting to become less controlled. Hypertension - well controlled - continue with current medications, continue with no added salt diet. Pt has been encouraged to exercise daily. The pt has been advised to call the office if there are any acute concerns about change in blood pressure readings at home. Hypogonadism - recommended patient to continue with testosterone - however we have decreased the dose and will have the pt on 225mg q 2 weeks and check cbc and testosterone level in a two months. Leg pain - recommended increased activity - water therapy and I have also recommended that he return to Pulmonary rehab. 06/11/2017 Appointment: Lisa Pruitt [facility]Ptel: [phone] [id number] (15 min) Moderate 06/11/2017 Patient Education: Patient Medication Summary Completed 06/11/2017 Patient Education: Patient Medication Summary Completed 05/18/2017 Visit Plan: Hypertension - well controlled - continue with current medications, continue with no added salt diet. Pt has been encouraged to exercise daily. The pt has been advised to call the office if there are any acute concerns about change in blood pressure readings at home. Diabetes Mellitus - controlled - per recent FSBS reports. I have recommended for the patient to have follow up labs prior to the next office visit. The patient has been instructed to continue with current medications as previously directed, continue with regular FSBS monitoring to assure continued control of diabetes. Pt to call for any acute concerns, complaints, or if the blood glucose readings are starting to become less controlled. Emphysema with cough - continue with oxygen at 5 liters [place] - recommended patient to call if his cough worsens, shortness of breath worsens or if he develops a fever. Erectile dysfunction - continue with prn viagra. 02/23/2017 Appointment: Lisa Pruitt [phone] [id number] (15 min) Moderate 02/23/2017 Patient Education: Patient Medication Summary Completed 02/23/2017 Appointment: Injection 11/19/2016 Patient Education: Patient Medication Summary Completed 11/19/2016 Visit Plan: Hypertension - well controlled - continue with current medications, continue with no added salt diet. Pt has been encouraged to exercise daily. The pt has been advised to call the office if there are any acute concerns about change in blood pressure readings at home. Diabetes Mellitus - controlled - per recent FSBS reports. I have recommended for the patient to have follow up labs prior to the next office visit. The patient has been instructed to continue with current medications as previously directed, continue with regular FSBS monitoring to assure continued control of diabetes. Pt to call for any acute concerns, complaints, or if the blood glucose readings are starting to become less controlled. COPD -Emphysema - Chronic - recommended continued follow up with Dr. Jackson- I have discussed with the patient the need for weight loss - decrease of his abodminal girth will help to decrease the pressure of his abdominal cavity on his lungs from diaphragmatic pressure. Hyperlipidemia - pt has been counseled about appropriate diet, exercise, and need for low fat food choices. I have discussed the need for the patient to take medications as prescribed. If the patient has negative side effects from the medication, they are to CALL the office and not abruptly discontinue the medication without discussion with a practitioner in the office. We will check labs in 3-6 months for follow up on the patient's chronic medical problem and to assure normal liver response to medications. Flu shot 11/17/2016 Appointment: Lisa Pruitt WPtel: [id number] [facility] 11/17/2016 Patient Education: Patient Medication Summary Completed 11/17/2016 Patient Education: Obesity Completed 11/17/2016 Referral: Boogie Warren [facility]el[facility] [phone] [id number] Referral Appointment Confirmed Instructions Comment . Hypertension - well controlled - continue with current medications, continue with no added salt diet. Pt has been encouraged to exercise daily. The pt has been advised to call the office if there are any acute concerns about change in blood pressure readings at home. Diabetes Mellitus - controlled - per recent FSBS reports. I have recommended for the patient to have follow up labs prior to the next office visit. The patient has been instructed to continue with current medications as previously directed, continue with regular FSBS monitoring to assure continued control of diabetes. Pt to call for any acute concerns, complaints, or if the blood glucose readings are starting to become less controlled. Emphysema with cough - continue with oxygen at 5 liters [place] - recommended patient to call if his cough worsens, shortness of breath worsens or if he develops a fever. Erectile dysfunction - continue with prn viagra. Appointment with Dr. Warren on 01/06 at 3:15 . BPH - pt is to continue his flomax and follow up with Dr. Warren - will send RX for possible prostatitis - pt is to notify clinic if symptoms do not improve or with any changes, questions or concerns. Testicular hypofunction - will check labs and treat as indicated . Diabetes Mellitus - controlled - per recent FSBS reports. I have recommended for the patient to have follow up labs prior to the next office visit. The patient has been instructed to continue with current medications as previously directed, continue with regular FSBS monitoring to assure continued control of diabetes. Pt to call for any acute concerns, complaints, or if the blood glucose readings are starting to become less controlled. Hypertension - well controlled - continue with current medications, continue with no added salt diet. Pt has been encouraged to exercise daily. The pt has been advised to call the office if there are any acute concerns about change in blood pressure readings at home. Hypogonadism - recommended patient to continue with testosterone - however we have decreased the dose and will have the pt on 225mg q 2 weeks and check cbc and testosterone level in a two months. Leg pain - recommended increased activity - water therapy and I have also recommended that he return to Pulmonary rehab. . Hypogonadism with extreme fatigue - I have placed a phone call to Dr. Lynn about restarting testosterone at lower dose, she agrees to restarting the testosterone at 1/2 of previous dose - and repeat labs in 6 weeks. Diabetes Mellitus - controlled - per recent FSBS reports. I have recommended for the patient to have follow up labs prior to the next office visit. The patient has been instructed to continue with current medications as previously directed, continue with regular FSBS monitoring to assure continued control of diabetes. Pt to call for any acute concerns, complaints, or if the blood glucose readings are starting to become less controlled. Hypertension - well controlled - continue with current medications, continue with no added salt diet. Pt has been encouraged to exercise daily. The pt has been advised to call the office if there are any acute concerns about change in blood pressure readings at home. COPD - chronic problem for this patient. We have reviewed chronic treatment strategy, symptom control, and plans for acute exacerbations. No changes today to the current treatment plan as the patient is stable, monitor for acute changes. decrease the metoprolol to 1/2 a pill (25mg) twice daily - let me know if your blood pressure starts to go above 140 consistent on the top number - or 90 on the bottom number. or if your heart rate is consistently above 90. . Hypogonadism with extreme fatigue - - continue with current dosing of testosterone. Diabetes Mellitus - controlled - per recent FSBS reports. I have recommended for the patient to have follow up labs prior to the next office visit. The patient has been instructed to continue with current medications as previously directed, continue with regular FSBS monitoring to assure continued control of diabetes. Pt to call for any acute concerns, complaints, or if the blood glucose readings are starting to become less controlled. Hypertension -per his report - with fatigue - I am concerned that his blood pressures are going too low and he also has bradycardia - therefore decrease the metoprolol to 1/2 a pill (25mg) twice daily. Pt has been encouraged to exercise daily. The pt has been advised to call the office if there are any acute concerns about change in blood pressure readings at home. COPD - chronic problem for this patient. We have reviewed chronic treatment strategy, symptom control, and plans for acute exacerbations. No changes today to the current treatment plan as the patient is stable, monitor for acute changes. . Hypertension - well controlled - continue with current medications, continue with no added salt diet. Pt has been encouraged to exercise daily. The pt has been advised to call the office if there are any acute concerns about change in blood pressure readings at home. Diabetes Mellitus - controlled - per recent FSBS reports. I have recommended for the patient to have follow up labs prior to the next office visit. The patient has been instructed to continue with current medications as previously directed, continue with regular FSBS monitoring to assure continued control of diabetes. Pt to call for any acute concerns, complaints, or if the blood glucose readings are starting to become less controlled. COPD -Emphysema - Chronic - recommended continued follow up with Dr. Jackson- I have discussed with the patient the need for weight loss - decrease of his abodminal girth will help to decrease the pressure of his abdominal cavity on his lungs from diaphragmatic pressure. Hyperlipidemia - pt has been counseled about appropriate diet, exercise, and need for low fat food choices. I have discussed the need for the patient to take medications as prescribed. If the patient has negative side effects from the medication, they are to CALL the office and not abruptly discontinue the medication without discussion with a practitioner in the office. We will check labs in 3-6 months for follow up on the patient's chronic medical problem and to assure normal liver response to medications. Flu shot an emergency kit for possible allergic reaction to carry in the car and in Susanna's purse - - Benadryl 25mg - take two pills at onset of allergic exposure - Pepcid 20mg take two pills at onset of allergic exposure . Hypertension - well controlled - continue with current medications, continue with no added salt diet. Pt has been encouraged to exercise daily. The pt has been advised to call the office if there are any acute concerns about change in blood pressure readings at home. Diabetes Mellitus - controlled - per recent FSBS reports. I have recommended for the patient to have follow up labs prior to the next office visit. The patient has been instructed to continue with current medications as previously directed, continue with regular FSBS monitoring to assure continued control of diabetes. Pt to call for any acute concerns, complaints, or if the blood glucose readings are starting to become less controlled. Emphysema with cough - continue with oxygen at 5 liters [place] - recommended patient to call if his cough worsens, shortness of breath worsens or if he develops a fever. Erectile dysfunction - continue with prn cialis Flu shot given to pt today - high dose due to his Emphysema
--- OUTSIDE RECORDS SUMMARY | 2018-07-14 23:18 | XMS REPORT | CCD ---
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 Name Role Phone PP Unavailable CCM Unavailable Summary Purpose Interface Exchange Insurance Providers Payer name Policy type / Coverage type Covered democrat ID Effective Begin Date Effective End Date WPS Medicare Part B Medicare Part B [id number] 2017 Unknown AARP Medicare Part B [id number] 2017 Unknown Family history Mother Diagnosis Age [...] Unknown 2 11/17/2016 Employment Unknown Retired from [employer] 11/17/[address]: 1655157 Former smoker 11/17/2016 Alcohol history Unknown occasionally drinks alcohol 11/17/2016 Frequency of drinks SNOMED CT: 112517273 Drinks rarely 1 in 3 or 4 months 11/17/2016 Has the patient ever used illegal drugs? Unknown Has never used illegal drugs 11/17/2016 Allergies, Adverse Reactions, Alerts Substance Reaction Codes Entered Date Inactivated Date Status Shellfish anaphylaxis Unknown 11/17/2016 No Inactive Date Active demerol nausea, RxNorm: 656021 11/17/2016 No Inactive Date Active Past Medical [...] Start Date Stop Date Status Fill Instructions metoprolol tartrate 25 mg tablet RxNorm: 277290 1 Tablet(s) PO BID 06/21/2018 01/16/2019 Active tramadol 50 mg tablet RxNorm: 380645 1-2 Tablet(s) PO QID as needed for pain 04/12/2018 06/10/2018 Inactive diltiazem ER 300 mg tablet,extended release 24 hr RxNorm: 784175 1 Tablet(s) PO daily 04/12/2018 04/06/2019 Active tramadol 50 mg tablet RxNorm: 561271 1-2 Tablet(s) PO QID as needed for pain 01/12/2018 03/11/2018 Inactive Cipro 500 mg tablet RxNorm: 067257 1 Tablet(s) PO BID 12/17/2017 12/26/2017 Inactive Cipro 500 mg tablet RxNorm: 597509 1 Tablet(s) PO BID 12/16/2017 12/16/2017 Inactive Singulair 10 mg tablet RxNorm: 432599 1 tab(s) PO qPM 11/26/2017 No Stop Date Active Symbicort 160 mcg-4.5 mcg/actuation HFA aerosol inhaler RxNorm: 0435776 2 Puff(s) INH BID 11/10/2017 01/08/2018 Inactive tramadol 50 mg tablet RxNorm: 078996 1-2 Tablet(s) PO QID as needed for pain 11/10/2017 01/07/2018 Inactive testosterone cypionate 200 mg/mL intramuscular oil RxNorm: 229764 2.25 Milliliter(s) IM [id number] 11/04/2017 07/01/2018 Active metoprolol tartrate 50 mg tablet RxNorm: 045316 1 Tablet(s) PO BID 10/19/2017 06/20/2018 Inactive gemfibrozil 600 mg tablet RxNorm: 726779 1 Tablet(s) PO BID 10/16/2017 10/10/2018 Active sildenafil (antihypertensive) 20 mg tablet RxNorm: 329912 TAKE 2&1/2 TABLETS BY MOUTH DIRECTED 10/02/2017 02/22/2018 Inactive Generic For:REVATIO 20 MG TABLET N O T I C E PRESCRIPTION PREVIOUSLY AUTHORIZED BY DOCTOR:WESLEY NINO omeprazole 40 mg capsule,delayed release RxNorm: 219879 1 cap(s) PO Daily 09/09/2017 No Stop Date Active tamsulosin 0.4 mg capsule RxNorm: 600191 TAKE 1 CAPSULE BY MOUTH DAILY NEEDED 09/09/2017 09/03/2018 Active Generic For:FLOMAX 0.4 MG CAPSULE SA 09/07/2017 12:43:43 PM 09/09/2017 1:54:53 PM lisinopril 20 mg tablet RxNorm: 194452 1 tab(s) PO BID 09/09/2017 No Stop Date Active Vitamin D2 50,000 unit capsule RxNorm: 6987068 1 Capsule(s) PO QW 09/09/2017 12/01/2017 Inactive tramadol 50 mg tablet RxNorm: 089661 1-2 Tablet(s) PO QID as needed for pain 09/07/2017 01/11/2018 Inactive tramadol 50 mg tablet RxNorm: 787384 1-2 Tablet(s) PO QID 08/14/2017 11/09/2017 Inactive testosterone cypionate 200 mg/mL intramuscular oil RxNorm: 997145 2 Milliliter(s) IM [id number] 07/29/2017 11/03/2017 Inactive tramadol 50 mg tablet RxNorm: 660405 1-2 Tablet(s) PO QID as needed for pain 06/08/2017 08/05/2017 Inactive testosterone cypionate 200 mg/mL intramuscular oil RxNorm: 325983 2.25 Milliliter(s) IM [id number] 06/08/2017 07/28/2017 Inactive gemfibrozil 600 mg tablet RxNorm: 527806 1 Tablet(s) PO BID 05/20/2017 05/19/2017 Inactive gemfibrozil 600 mg tablet RxNorm: 644907 1 Tablet(s) PO BID 05/20/2017 10/15/2017 Inactive Vitamin D2 50,000 unit capsule RxNorm: 1208808 1 Capsule(s) PO QW 04/29/2017 07/21/2017 Inactive Vitamin D2 50,000 unit capsule RxNorm: 454437 1 Capsule(s) PO QW 04/29/2017 04/28/2017 Inactive testosterone cypionate 200 mg/mL intramuscular oil RxNorm: 184785 300 Milligram(s) IM monthly 04/10/2017 No Stop Date Active diltiazem ER 300 mg tablet,extended release 24 hr RxNorm: 675302 1 Tablet(s) PO daily 04/10/2017 01/04/2018 Inactive multivitamin tablet RxNorm: 1 Tablet(s) PO daily No Start Date Active ProAir HFA 90 mcg/actuation aerosol inhaler RxNorm: 774900 2 Puff(s) INH QID No Start Date Active pravastatin 20 mg tablet RxNorm: 333336 1 Tablet(s) PO daily No Start Date Active Eliquis 5 mg tablet RxNorm: 4342350 1 Tablet(s) PO BID No Start Date Active Flonase Allergy Relief 50 mcg/actuation nasal spray,suspension RxNorm: 6529006 2 [place] NASAL daily No Start Date Active albuterol sulfate 2.5 mg/3 mL (0.083 %) solution for nebulization RxNorm: 279268 3 Milliliter(s) INH Q6 for wheezing No Start Date Active EpiPen 2-Marcelo 0.3 mg/0.3 mL injection, auto-injector RxNorm: 843706 0.3 Milliliter(s) IM PRN allergic reaction No Start Date Active hydrocodone 10 mg-acetaminophen 325 mg tablet RxNorm: 581069 1 Tablet(s) PO Q4H No Start Date Active Spiriva Respimat 2.5 mcg/actuation solution for inhalation RxNorm: 4693124 2 Puff(s) INH daily No Start Date Active tramadol 50 mg tablet RxNorm: 261704 1 Tablet(s) PO Q4H No Start Date 08/13/2017 Inactive diltiazem ER 300 mg tablet,extended release 24 hr RxNorm: 160928 1 Tablet(s) PO daily No Start Date 04/09/2017 Inactive Singulair 10 mg tablet RxNorm: 425948 1 Tablet(s) PO daily No Start Date 11/25/2017 Inactive Zyrtec 10 mg tablet RxNorm: 7828693 1 Tablet(s) PO daily No Start Date 10/18/2017 Inactive sildenafil (antihypertensive) 20 mg tablet RxNorm: 872306 3 Tablet(s) PO as needed No Start Date 10/01/2017 Inactive metoprolol tartrate 25 mg tablet RxNorm: 233901 1 Tablet(s) PO BID No Start Date 10/18/2017 Inactive omeprazole 40 mg capsule,delayed release RxNorm: 403789 1 Capsule(s) PO daily No Start Date 09/08/2017 Inactive Symbicort 160 mcg-4.5 mcg/actuation HFA aerosol inhaler RxNorm: 0981797 2 Puff(s) INH BID No Start Date 11/09/2017 Inactive amiodarone 200 mg tablet RxNorm: 985859 1 Tablet(s) PO daily No Start Date 02/22/2017 Inactive tamsulosin 0.4 mg capsule RxNorm: 524590 1 Capsule(s) PO daily No Start Date 09/08/2017 Inactive lisinopril 20 mg tablet RxNorm: 204791 1 Tablet(s) PO BID No Start Date 09/08/2017 Inactive Fish Oil 300 mg-1,000 mg capsule RxNorm: 522061 2 Capsule(s) PO QAM and 1 Capsule PO QPM No Start Date 10/18/2017 Inactive Vitamin D3 2,000 unit tablet RxNorm: 867646 1 Tablet(s) PO daily No Start Date 02/14/2018 Inactive testosterone cypionate 200 mg/mL intramuscular oil RxNorm: 136574 300 Milligram(s) IM monthly No Start Date [...] 36.3 pg 04/14/2018 Cbc With Differential Ord2 Collin% 7.4 % 04/14/2018 Cbc With Differential Ord2 [...] 1.10 K/ul 04/14/2018 Cbc With Differential Ord2 [place] ABS# 0.8 K/ul 04/14/2018 Cbc With Differential Ord2 Eos ABS# 0.1 K/ul 04/14/2018 Cbc With Differential Ord2 Baso ABS# 0.1 K/ul 04/14/2018 Testosterone Oll804 Testo 394.4 ng/dL 04/14/2018 Testosterone Efj893 Testo 27.4 ng/dL 12/17/2017 Urinalysis Ord28 U-Color [...] 30.7 pg 12/16/2017 Cbc With Differential Ord2 Collin% 15.0 % 12/16/2017 Cbc With Differential Ord2 [...] 1.42 K/ul 12/16/2017 Cbc With Differential Ord2 [place] ABS# 0.9 K/ul 12/16/2017 Cbc With Differential [...] 30.1 pg 07/22/2017 Cbc With Differential Ord2 [place]lin% 14.5 % 07/22/2017 Cbc With Differential Ord2 [...] 1.41 K/ul 07/22/2017 Cbc With Differential Ord2 [place] ABS# 1.0 K/ul 07/22/2017 Cbc With Differential Ord2 Eos ABS# 0.1 K/ul 07/22/2017 Cbc With Differential Ord2 Baso ABS# 0.0 K/ul 07/22/2017 Testosterone Bmj167 Testo 1132.5 ng/dL 07/22/2017 Cbc With Differential [...] 28.6 pg 05/19/2017 Cbc With Differential Ord2 [place]% 13.9 % 05/19/2017 Cbc With Differential Ord2 [...] 1.20 K/ul 05/19/2017 Cbc With Differential Ord2 [place] ABS# 0.9 K/ul 05/19/2017 Cbc With Differential Ord2 Eos ABS# 0.1 K/ul 05/19/2017 Cbc With Differential Ord2 Baso ABS# 0.0 K/ul 05/19/2017 Comp Metabolic Sje354 NA 136 mEq/L 11/18/2016 Comp Metabolic Pmo302 K 4.2 mEq/L 11/18/2016 Comp Metabolic Plb298 CL 106 mEq/L 11/18/2016 Comp Metabolic Djk845 CO2 21.0 mEq/L 11/18/2016 Comp Metabolic Sic432 ANION GAP 13 11/18/2016 Comp Metabolic Iya531 GLUCOSE 96 mg/dL 11/18/2016 Comp Metabolic Mqb650 Creat 1.0 mg/dL 11/18/2016 Comp Metabolic Qyc023 eGFR 77 ml/min/1.73m2 11/18/2016 Comp Metabolic Xvg322 BUN 13 mg/dL 11/18/2016 Comp Metabolic Mkk936 B/C Ratio 13.0 Ratio 11/18/2016 Comp Metabolic Tcm778 CALCIUM 8.9 mg/dL 11/18/2016 Comp Metabolic Dcl818 ALK PHOS 88 U/L 11/18/2016 Comp Metabolic Wmv992 AST(SGOT) 17 U/L 11/18/2016 Comp Metabolic Vsu010 ALT(SGPT) 16 U/L 11/18/2016 Comp Metabolic Lqk923 BILI T 0.9 mg/dL 11/18/2016 Comp Metabolic Qlp138 ALBUMIN 3.9 g/dL 11/18/2016 Comp Metabolic Vay759 TPRO 6.4 g/dL 11/18/2016 Comp Metabolic Qsh591 GLOB 2.5 g/dL 11/18/2016 Comp Metabolic Blr980 A/G Ratio 1.6 Ratio 11/18/2016 Comp Metabolic Flf480 Osmo 272 mOsmo 11/18/2016 %Hba1C Ckd847 % HbA1c 39064- 6 5.7 % 11/18/2016 %Hba1C Pwc959 Gluc Ave 117 mg/dL 11/18/2016 Cbc With [...] 27.7 pg 11/18/2016 Cbc With Differential Ord2 [place]lin% 14.0 % 11/18/2016 Cbc With Differential Ord2 [...] 1.07 K/ul 11/18/2016 Cbc With Differential Ord2 [place] ABS# 1.0 K/ul 11/18/2016 Cbc With Differential [...] 1994 Ears/Nose/Throat oral cavity/pharynx/larynx Overall: hypopharynx benign 06/21/2018 [...] Exam - General 1995 Ears/Nose/Throat lips/teeth/gingiva Overall: benign lips 02/15/2018 None [...] posture 11/17/2016 None Full Exam - General 1995 Musculoskeletal head and neck Overall: head atraumatic [...] FLU VACC PRSV FREE INC ANTIG CPT-4: 64097 10/19/2017 ADMIN PNEUMOCOCCAL VACCINE SNOMED CT: 73471659 CPT-4: G0009 11/19/2016 PNEUMOCOCCAL VACC [address]: 82884569 CPT-4: 77317 11/19/2016 ADMIN INFLUENZA VIRUS VAC CPT-4: G0008 11/17/2016 FLU VACC PRSV FREE INC ANTIG CPT-4: 82952 11/17/2016 Vital Signs Date Vital 06/21/2018 Blood Pressure 1: 120/62 Code: 8480-6 BMI: 34.0 Code: 65628-8 Heart Rate 1: 55 bpm Height: 5'11" SpO2: 94% Weight: 244 lbs 02/15/2018 Blood Pressure 1: 118/62 Code: 8480-6 BMI: 32.5 Code: 43049-4 Heart Rate 1: 63 bpm Height: 5'11" SpO2: 98% Weight: 233 lbs 12/16/2017 Blood Pressure 1: 130/74 Code: 8480-6 BMI: 32.4 Code: 27114-4 Heart Rate 1: 58 bpm Height: 5'11" SpO2: 95% Weight: 232 lbs 10/19/2017 Blood Pressure 1: 132/70 Code: 8480-6 BMI: 33.1 Code: 48707-4 Heart Rate 1: 54 bpm Height: 5'11" SpO2: 97% Weight: 237 lbs 06/11/2017 Blood Pressure 1: 126/74 Code: 8480-6 BMI: 33.8 Code: 02574-0 Heart Rate 1: 60 bpm Height: 5'11" SpO2: 94% Weight: 242 lbs 8 oz 02/23/2017 Blood Pressure 1: 138/82 Code: 8480-6 BMI: 33.8 Code: 41788-4 Heart Rate 1: 65 bpm Height: 5'11" SpO2: 94% Weight: 242 lbs 11/17/2016 Blood Pressure 1: 132/70 Code: 8480-6 BMI: 33.6 Code: 73380-4 Heart Rate 1: 57 bpm Height: 5'11" [...] data Encounters Encounter Performer Location Codes Date ([id number]) [id number] EST. PATIENT, LEVEL IV Diagnosis: Essential (primary) hypertension[ICD10: I10] Diagnosis: Type 2 diabetes mellitus without complications[ICD10: E11.9] Diagnosis: Testicular hypofunction[ICD10: E29.1] Lisa Pruitt MD, [facility] CPT-4: 83805 06/21/2018 ([id number]) 86360 EST. PATIENT, LEVEL IV Diagnosis: Essential (primary) hypertension[ICD10: I10] Diagnosis: Other emphysema[ICD10: J43.8] Diagnosis: Male erectile disorder[ICD10: F52.21] Diagnosis: Testicular hypofunction[ICD10: E29.1] Diagnosis: Type 2 diabetes mellitus without complications[ICD10: E11.9] [facility] CPT-4: 19427 02/15/2018 [id number] EST. PATIENT, LEVEL IV Diagnosis: Benign prostatic hyperplasia with lower urinary tract symptoms[ICD10: N40.1] Diagnosis: Other retention of urine[ICD10: R33.8] Diagnosis: Hesitancy of micturition[ICD10: R39.11] Diagnosis: Testicular hypofunction[ICD10: E29.1] Tori Pruitt MD, [facility] CPT- 4: 32514 12/16/2017 ([id number]) [id number] EST. PATIENT, LEVEL IV Diagnosis: Type 2 diabetes mellitus without complications[ICD10: E11.9] Diagnosis: Essential (primary) hypertension[ICD10: I10] Diagnosis: Encounter for immunization[ICD10: Z23] Diagnosis: Other emphysema[ICD10: J43.8] Diagnosis: Testicular hypofunction[ICD10: E29.1] Lisa Pruitt MD, [facility] CPT-4: 51274 10/19/2017 ([id number]) 46686 EST. PATIENT, LEVEL IV Diagnosis: Type 2 diabetes mellitus without complications[ICD10: E11.9] Diagnosis: Essential (primary) hypertension[ICD10: I10] Diagnosis: Male erectile disorder[ICD10: F52.21] Diagnosis: Testicular hypofunction[ICD10: E29.1] Lisa Pruitt MD, [facility] CPT-4: 15983 06/11/2017 ([id number]) 13529 EST. PATIENT, LEVEL IV Diagnosis: Type 2 diabetes mellitus without complications[ICD10: E11.9] Diagnosis: Cough[ICD10: R05] Diagnosis: Other emphysema[ICD10: J43.8] Diagnosis: Male erectile disorder[ICD10: F52.21] Lisa Pruitt MD, [facility] CPT-4: 12050 02/23/2017 ([id number]) OFFICE VISIT, NEW - LEVEL 4 Diagnosis: Encounter for immunization[ICD10: Z23] Diagnosis: Type 2 diabetes mellitus without complications[ICD10: E11.9] Diagnosis: Essential (primary) hypertension[ICD10: I10] Diagnosis: Other emphysema[ICD10: J43.8] Diagnosis: Dependence on supplemental oxygen[ICD10: Z99.81] Diagnosis: Mixed hyperlipidemia[ICD10: E78.2] Lisa Pruitt MD, [facility] CPT- 4: 16751 11/17/2016 Plan of Care Planned Activity Notes [...] is stable, monitor for acute changes. 06/21/2018 Patient Education: Patient Medication Summary Completed [...] acute changes. 02/15/2018 Appointment: Lisa Pruitt WPtel: [address] [place], [place] [phone] (15 min) Moderate 02/15/2018 Patient Education: Patient Medication Summary Completed 02/15/2018 Patient Education: Diabetes Completed 02/15/2018 [facility] [phone] [id number] [facility] Initiated 01/06/2018 Care Plan: Referral Order SNOMED-CT : [id number] Pending 12/17/2017 Visit Plan: BPH - pt [...] his Emphysema 10/19/2017 Appointment: Lisa Pruitt WPtel: [id number] ([facility] min) Moderate 10/19/2017 Patient Education: Patient [...] Pulmonary rehab. 06/11/2017 App[facility]ment: [facility] [phone] [id number] (15 min) Moderate 06/11/2017 Patient Education: Patient [...] - continue with oxygen at 5 liters [place] - recommended patient to call if his cough worsens, shortness of breath worsens or if he develops a fever. Erectile dysfunction - continue with prn viagra. 02/23/2017 Appointment: [facility] [phone] [id number] [place] (15 min) Moderate 02/23/2017 Patient Education: Patient [...] Flu shot 11/17/2016 Appointment: Lisa Pruitt WPtel: [id number] [facility] Patient 11/17/2016 Patient Education: Patient Medication Summary Completed 11/17/2016 Patient Education: Obesity Completed 11/17/2016 [facility]: [facility] [phone] [id number] [facility] App[facility]ment Confirmed Instructions Comment . Hypertension [...] - continue with oxygen at 5 liters [place] - recommended patient to call if his [...]
--- OUTSIDE RECORDS SUMMARY | 2018-07-14 23:19 | XMS REPORT | CCD ---
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 Name Role Phone PP Unavailable CCM Unavailable Summary Purpose Interface Exchange Insurance Providers Payer name Policy type / Coverage type Covered libertarian ID Effective Begin Date Effective End Date WPS Medicare Part B Medicare Part B [id number] 2017 Unknown AARP Medicare Part B [id number] 2017 Unknown Family history Mother Diagnosis Age At Onset Skin cancer Unknown Cancer Unknown Osteoporosis Unknown Hypertension Unknown Hypercholesterolemia Unknown Son Diagnosis Age At Onset Cancer Unknown Hypercholesterolemia Unknown Skin cancer Unknown Brother Diagnosis Age At Onset Hypercholesterolemia Unknown Hypertension Unknown Social History Social History Element Codes Description Effective Dates Marital status Unknown Susanna Qureshi 11/17/2016 Number of children Unknown 2 11/17/2016 Employment Unknown Retired from [employer] 11/17/[address]: 2285534 Former smoker 11/17/2016 Alcohol history Unknown occasionally drinks alcohol 11/17/2016 Frequency of drinks SNOMED CT: 744243329 Drinks rarely 1 in 3 or 4 months 11/17/2016 Has the patient ever used illegal drugs? Unknown Has never used illegal drugs 11/17/2016 Allergies, Adverse Reactions, Alerts Substance Reaction Codes Entered Date Inactivated Date Status Shellfish anaphylaxis Unknown 11/17/2016 No Inactive Date Active demerol nausea, RxNorm: 628303 11/17/2016 No Inactive Date Active Past Medical History Illness Codes Condition Status Onset Date Resolved Date Essential (primary) hypertension ICD-9: 401.1 ICD-10: I10 Active 11/17/2016 Unknown Iron deficiency anemia, unspecified ICD-9: 280.9 ICD-10: D50.9 Active 04/13/2018 Unknown Mixed hyperlipidemia ICD- 9: 272.2 ICD-10: E78.2 Active 11/17/2016 Unknown Testicular hypofunction ICD-9: 257.2 ICD-10: E29.1 Active 06/11/2017 Unknown Male erectile disorder ICD-9: 302.72 ICD-10: F52.21 Active 02/23/2017 Unknown Other emphysema ICD-9: 492.8 ICD-10: J43.8 Active 11/17/2016 Unknown Type 2 diabetes mellitus without complications ICD-9: 250.00 ICD-10: E11.9 Active 11/17/2016 Unknown Benign prostatic hyperplasia with [...] hypertension ICD-9: 401.1 ICD-10: I10 11/17/2016 Active Iron deficiency anemia, unspecified ICD-9: 280.9 ICD-10: D50.9 04/13/2018 Active Mixed hyperlipidemia ICD- 9: 272.2 ICD-10: E78.2 11/17/2016 Active Testicular hypofunction ICD-9: 257.2 ICD-10: E29.1 06/11/2017 Active Male erectile disorder ICD-9: 302.72 ICD-10: F52.21 02/23/2017 Active Other emphysema ICD-9: 492.8 ICD-10: J43.8 11/17/2016 Active Type 2 diabetes mellitus without complications ICD-9: 250.00 ICD-10: E11.9 11/17/2016 Active Benign prostatic hyperplasia with lower [...] Start Date Stop Date Status Fill Instructions tramadol 50 mg tablet RxNorm: 800195 1-2 Tablet(s) PO QID as needed for pain 04/12/2018 06/10/2018 Active diltiazem ER 300 mg tablet,extended release 24 hr RxNorm: 176913 1 Tablet(s) PO daily 04/12/2018 04/06/2019 Active tramadol 50 mg tablet RxNorm: 273620 1-2 Tablet(s) PO QID as needed for pain 01/12/2018 03/11/2018 Inactive Cipro 500 mg tablet RxNorm: 569240 1 Tablet(s) PO BID 12/17/2017 12/26/2017 Inactive Cipro 500 mg tablet RxNorm: 511791 1 Tablet(s) PO BID 12/16/2017 12/16/2017 Inactive Singulair 10 mg tablet RxNorm: 503856 1 tab(s) PO qPM 11/26/2017 No Stop Date Active Symbicort 160 mcg-4.5 mcg/actuation HFA aerosol inhaler RxNorm: 7669899 2 Puff(s) INH BID 11/10/2017 01/08/2018 Inactive tramadol 50 mg tablet RxNorm: 543911 1-2 Tablet(s) PO QID as needed for pain 11/10/2017 01/07/2018 Inactive testosterone cypionate 200 mg/mL intramuscular oil RxNorm: 692487 2.25 Milliliter(s) IM [id number] 11/04/2017 07/01/2018 Active metoprolol tartrate 50 mg tablet RxNorm: 487209 1 Tablet(s) PO BID 10/19/2017 No Stop Date Active gemfibrozil 600 mg tablet RxNorm: 028604 1 Tablet(s) PO BID 10/16/2017 10/10/2018 Active sildenafil (antihypertensive) 20 mg tablet RxNorm: 892998 TAKE 2&1/2 TABLETS BY MOUTH DIRECTED 10/02/2017 02/22/2018 Inactive Generic For:REVATIO 20 MG TABLET N O T I C E PRESCRIPTION PREVIOUSLY AUTHORIZED BY DOCTOR:WESLEY NINO omeprazole 40 mg capsule,delayed release RxNorm: 673521 1 cap(s) PO Daily 09/09/2017 No Stop Date Active tamsulosin 0.4 mg capsule RxNorm: 319195 TAKE 1 CAPSULE BY MOUTH DAILY NEEDED 09/09/2017 09/03/2018 Active Generic For:FLOMAX 0.4 MG CAPSULE SA 09/07/2017 12:43:43 PM 09/09/2017 1:54:53 PM lisinopril 20 mg tablet RxNorm: 305655 1 tab(s) PO BID 09/09/2017 No Stop Date Active Vitamin D2 50,000 unit capsule RxNorm: 2699068 1 Capsule(s) PO QW 09/09/2017 12/01/2017 Inactive tramadol 50 mg tablet RxNorm: 996849 1-2 Tablet(s) PO QID as needed for pain 09/07/2017 01/11/2018 Inactive tramadol 50 mg tablet RxNorm: 266285 1-2 Tablet(s) PO QID 08/14/2017 11/09/2017 Inactive testosterone cypionate 200 mg/mL intramuscular oil RxNorm: 434430 2 Milliliter(s) IM [id number] 07/29/2017 11/03/2017 Inactive tramadol 50 mg tablet RxNorm: 144137 1-2 Tablet(s) PO QID as needed for pain 06/08/2017 08/05/2017 Inactive testosterone cypionate 200 mg/mL intramuscular oil RxNorm: 883418 2.25 Milliliter(s) IM [id number] 06/08/2017 07/28/2017 Inactive gemfibrozil 600 mg tablet RxNorm: 386317 1 Tablet(s) PO BID 05/20/2017 05/19/2017 Inactive gemfibrozil 600 mg tablet RxNorm: 647994 1 Tablet(s) PO BID 05/20/2017 10/15/2017 Inactive Vitamin D2 50,000 unit capsule RxNorm: 9186855 1 Capsule(s) PO QW 04/29/2017 07/21/2017 Inactive Vitamin D2 50,000 unit capsule RxNorm: 192177 1 Capsule(s) PO QW 04/29/2017 04/28/2017 Inactive testosterone cypionate 200 mg/mL intramuscular oil RxNorm: 891228 300 Milligram(s) IM monthly 04/10/2017 No Stop Date Active diltiazem ER 300 mg tablet,extended release 24 hr RxNorm: 629763 1 Tablet(s) PO daily 04/10/2017 01/04/2018 Inactive multivitamin tablet RxNorm: 1 Tablet(s) PO daily No Start Date Active ProAir HFA 90 mcg/actuation aerosol inhaler RxNorm: 371680 2 Puff(s) INH QID No Start Date Active pravastatin 20 mg tablet RxNorm: 886109 1 Tablet(s) PO daily No Start Date Active Eliquis 5 mg tablet RxNorm: 9808813 1 Tablet(s) PO BID No Start Date Active Flonase Allergy Relief 50 mcg/actuation nasal spray,suspension RxNorm: 2722740 2 [place] NASAL daily No Start Date Active albuterol sulfate 2.5 mg/3 mL (0.083 %) solution for nebulization RxNorm: 861201 3 Milliliter(s) INH Q6 for wheezing No Start Date Active EpiPen 2-[place] 0.3 mg/0.3 mL injection, auto-injector RxNorm: 088016 0.3 Milliliter(s) IM PRN allergic reaction No Start Date Active hydrocodone 10 mg-acetaminophen 325 mg tablet RxNorm: 092373 1 Tablet(s) PO Q4H No Start Date Active Spiriva Respimat 2.5 mcg/actuation solution for inhalation RxNorm: 1312899 2 Puff(s) INH daily No Start Date Active tramadol 50 mg tablet RxNorm: 750139 1 Tablet(s) PO Q4H No Start Date 08/13/2017 Inactive diltiazem ER 300 mg tablet,extended release 24 hr RxNorm: 666406 1 Tablet(s) PO daily No Start Date 04/09/2017 Inactive Singulair 10 mg tablet RxNorm: 843233 1 Tablet(s) PO daily No Start Date 11/25/2017 Inactive Zyrtec 10 mg tablet RxNorm: 7222505 1 Tablet(s) PO daily No Start Date 10/18/2017 Inactive sildenafil (antihypertensive) 20 mg tablet RxNorm: 087984 3 Tablet(s) PO as needed No Start Date 10/01/2017 Inactive metoprolol tartrate 25 mg tablet RxNorm: 905945 1 Tablet(s) PO BID No Start Date 10/18/2017 Inactive omeprazole 40 mg capsule,delayed release RxNorm: 035180 1 Capsule(s) PO daily No Start Date 09/08/2017 Inactive Symbicort 160 mcg-4.5 mcg/actuation HFA aerosol inhaler RxNorm: 6829108 2 Puff(s) INH BID No Start Date 11/09/2017 Inactive amiodarone 200 mg tablet RxNorm: 092014 1 Tablet(s) PO daily No Start Date 02/22/2017 Inactive tamsulosin 0.4 mg capsule RxNorm: 839048 1 Capsule(s) PO daily No Start Date 09/08/2017 Inactive lisinopril 20 mg tablet RxNorm: 620995 1 Tablet(s) PO BID No Start Date 09/08/2017 Inactive Fish Oil 300 mg-1,000 mg capsule RxNorm: 515459 2 Capsule(s) PO QAM and 1 Capsule PO QPM No Start Date 10/18/2017 Inactive Vitamin D3 2,000 unit tablet RxNorm: 775099 1 Tablet(s) PO daily No Start Date 02/14/2018 Inactive testosterone cypionate 200 mg/mL intramuscular oil RxNorm: 584515 300 Milligram(s) IM monthly No Start Date 04/09/2017 Inactive Medication Administered No Medication Administered data Immunizations Vaccine Codes Date Status Influenza CVX: 141 10/19/2017 completed Pneumococcal (Adult) CVX: 133 11/19/2016 completed Influenza CVX: 141 11/17/2016 completed Influenza CVX: 141 11/10/2015 completed Pneumococcal (Adult) CVX: 33 11/10/2015 completed Assessments Condition Codes Effective Dates Iron deficiency anemia, unspecified ICD-10: D50.9 ICD-9: 280.9 04/13/2018 Essential (primary) hypertension ICD-10: I10 ICD-9: 401.1 04/13/2018 Testicular hypofunction ICD-10: E29.1 ICD-9: 257.2 04/13/2018 Mixed hyperlipidemia ICD-10: E78.2 ICD-9: 272.2 04/13/2018 Type 2 diabetes mellitus without complications ICD-10: E11.9 ICD-9: 250.00 02/15/2018 Other emphysema ICD-10: J43.8 ICD-9: 492.8 02/15/2018 [...] Reason For Visit Effective Dates Notes hypertension 02/15/2018 urinary frequency 12/16/2017 hypertension 10/19/2017 hypertension 06/11/2017 hypertension 02/23/2017 vaccination against pneumonia 11/19/2016 hypertension 11/17/2016 Results Observation Observation Code Item Item Code Result Date Testosterone Ilr544 Testo 27.4 ng/dL 12/17/2017 Urinalysis Ord28 U-Color [...] 30.7 pg 12/16/2017 Cbc With Differential Ord2 [place]% 15.0 % 12/16/2017 Cbc With Differential Ord2 [...] 1.42 K/ul 12/16/2017 Cbc With Differential Ord2 [place] ABS# 0.9 K/ul 12/16/2017 Cbc With Differential [...] 30.1 pg 07/22/2017 Cbc With Differential Ord2 [place]% 14.5 % 07/22/2017 Cbc With Differential Ord2 [...] 1.41 K/ul 07/22/2017 Cbc With Differential Ord2 [place] ABS# 1.0 K/ul 07/22/2017 Cbc With Differential Ord2 Eos ABS# 0.1 K/ul 07/22/2017 Cbc With Differential Ord2 Baso ABS# 0.0 K/ul 07/22/2017 Testosterone Pqq075 Testo 1132.5 ng/dL 07/22/2017 Cbc With Differential [...] 28.6 pg 05/19/2017 Cbc With Differential Ord2 [place]% 13.9 % 05/19/2017 Cbc With Differential Ord2 [...] 1.20 K/ul 05/19/2017 Cbc With Differential Ord2 [place] ABS# 0.9 K/ul 05/19/2017 Cbc With Differential Ord2 Eos ABS# 0.1 K/ul 05/19/2017 Cbc With Differential Ord2 Baso ABS# 0.0 K/ul 05/19/2017 Comp Metabolic Isi686 NA 136 mEq/L 11/18/2016 Comp Metabolic Hzq900 K 4.2 mEq/L 11/18/2016 Comp Metabolic Who165 CL 106 mEq/L 11/18/2016 Comp Metabolic Hum702 CO2 21.0 mEq/L 11/18/2016 Comp Metabolic Aus270 ANION GAP 13 11/18/2016 Comp Metabolic Qty949 GLUCOSE 96 mg/dL 11/18/2016 Comp Metabolic Zyn111 Creat 1.0 mg/dL 11/18/2016 Comp Metabolic Mde368 eGFR 77 ml/min/1.73m2 11/18/2016 Comp Metabolic Ciw082 BUN 13 mg/dL 11/18/2016 Comp Metabolic Aen804 B/C Ratio 13.0 Ratio 11/18/2016 Comp Metabolic Noh496 CALCIUM 8.9 mg/dL 11/18/2016 Comp Metabolic Tmt337 ALK PHOS 88 U/L 11/18/2016 Comp Metabolic Pdg374 AST(SGOT) 17 U/L 11/18/2016 Comp Metabolic Enh916 ALT(SGPT) 16 U/L 11/18/2016 Comp Metabolic Mun458 BILI T 0.9 mg/dL 11/18/2016 Comp Metabolic Aks412 ALBUMIN 3.9 g/dL 11/18/2016 Comp Metabolic Tvz889 TPRO 6.4 g/dL 11/18/2016 Comp Metabolic Vlr915 GLOB 2.5 g/dL 11/18/2016 Comp Metabolic Wmi496 A/G Ratio 1.6 Ratio 11/18/2016 Comp Metabolic Qny696 Osmo 272 mOsmo 11/18/2016 %Hba1C Ein905 % HbA1c 98918- 6 5.7 % 11/18/2016 %Hba1C Vqs030 Gluc Ave 117 mg/dL 11/18/2016 Cbc With [...] 27.7 pg 11/18/2016 Cbc With Differential Ord2 [place]% 14.0 % 11/18/2016 Cbc With Differential Ord2 [...] 1.07 K/ul 11/18/2016 Cbc With Differential Ord2 [place] ABS# 1.0 K/ul 11/18/2016 Cbc With Differential Ord2 Eos ABS# 0.1 K/ul 11/18/2016 Cbc With Differential Ord2 Baso ABS# 0.0 K/ul 11/18/2016 Lipid Ord30 CHOL 116 mg/dL 11/18/2016 Lipid Ord30 HDL 32.0 mg/dl 11/18/2016 Lipid Ord30 TRIG 97 mg/dL 11/18/2016 Lipid Ord30 LDL 65 mg/dL 11/18/2016 Lipid Ord30 C/HDL 3.6 Ratio 11/18/2016 Review of Systems System Result Effective Dates Constitutional No recent illness 02/15/2018 Constitutional No [...] None Full Exam - General 1995 Ears/Nose/Throat otoscopic exam Overall: tympanic membranes clear [...] normal 12/16/2017 None Full Exam - General 1995 Ears/Nose/Throat lips/teeth/gingiva Overall: benign lips 12/16/2017 None [...] FLU VACC PRSV FREE INC ANTIG CPT-4: 97159 10/19/2017 ADMIN PNEUMOCOCCAL VACCINE SNOMED CT: 65185015 CPT-4: G0009 11/19/2016 PNEUMOCOCCAL VACC [address]: 08600959 CPT-4: 25416 11/19/2016 ADMIN INFLUENZA VIRUS VAC CPT-4: G0008 11/17/2016 FLU VACC PRSV FREE INC ANTIG CPT-4: 70058 11/17/2016 Vital Signs Date Vital 02/15/2018 Blood Pressure 1: 118/62 Code: 8480-6 BMI: 32.5 Code: 65709-3 Heart Rate 1: 63 bpm Height: 5'11" SpO2: 98% Weight: 233 lbs 12/16/2017 Blood Pressure 1: 130/74 Code: 8480-6 BMI: 32.4 Code: 25719-1 Heart Rate 1: 58 bpm Height: 5'11" SpO2: 95% Weight: 232 lbs 10/19/2017 Blood Pressure 1: 132/70 Code: 8480-6 BMI: 33.1 Code: 55396-1 Heart Rate 1: 54 bpm Height: 5'11" SpO2: 97% Weight: 237 lbs 06/11/2017 Blood Pressure 1: 126/74 Code: 8480-6 BMI: 33.8 Code: 35624-0 Heart Rate 1: 60 bpm Height: 5'11" SpO2: 94% Weight: 242 lbs 8 oz 02/23/2017 Blood Pressure 1: 138/82 Code: 8480-6 BMI: 33.8 Code: 02389-6 Heart Rate 1: 65 bpm Height: 5'11" SpO2: 94% Weight: 242 lbs 11/17/2016 Blood Pressure 1: 132/70 Code: 8480-6 BMI: 33.6 Code: 93094-2 Heart Rate 1: 57 bpm Height: 5'11" SpO2: 94% Weight: 241 lbs Functional Status No Functional Status data History of Present Illness Symptom Name Status Result Effective Date Notes Quality chronic 02/15/2018 None Quality primary hypertension [...] data Encounters Encounter Performer Location Codes Date () [id number] EST. PATIENT, LEVEL IV Diagnosis: Essential (primary) hypertension[ICD10: I10] Diagnosis: Other emphysema[ICD10: J43.8] Diagnosis: Male erectile disorder[ICD10: F52.21] Diagnosis: Testicular hypofunction[ICD10: E29.1] Diagnosis: Type 2 diabetes mellitus without complications[ICD10: E11.9] Lisa Pruitt MD, [facility] CPT-4: 24801 02/15/2018 [id number] EST. PATIENT, LEVEL IV Diagnosis: Benign prostatic hyperplasia with lower urinary tract symptoms[ICD10: N40.1] Diagnosis: Other retention of urine[ICD10: R33.8] Diagnosis: Hesitancy of micturition[ICD10: R39.11] Diagnosis: Testicular hypofunction[ICD10: E29.1] Tori Pruitt MD, [facility] CPT- 4: 97341 12/16/2017 ([id number]) [id number] EST. PATIENT, LEVEL IV Diagnosis: Type 2 diabetes mellitus without complications[ICD10: E11.9] Diagnosis: Essential (primary) hypertension[ICD10: I10] Diagnosis: Encounter for immunization[ICD10: Z23] Diagnosis: Other emphysema[ICD10: J43.8] Diagnosis: Testicular hypofunction[ICD10: E29.1] Lisa Pruitt MD, [facility] CPT-4: 45500 10/19/2017 ([id number]) 63268 EST. PATIENT, LEVEL IV Diagnosis: Type 2 diabetes mellitus without complications[ICD10: E11.9] Diagnosis: Essential (primary) hypertension[ICD10: I10] Diagnosis: Male erectile disorder[ICD10: F52.21] Diagnosis: Testicular hypofunction[ICD10: E29.1] Lisa Pruitt MD, [facility] CPT-4: 03574 06/11/2017 ([id number]) 94922 EST. PATIENT, LEVEL IV Diagnosis: Type 2 diabetes mellitus without complications[ICD10: E11.9] Diagnosis: Cough[ICD10: R05] Diagnosis: Other emphysema[ICD10: J43.8] Diagnosis: Male erectile disorder[ICD10: F52.21] Lisa Pruitt MD, [facility] CPT-4: 70262 02/23/2017 ([id number]) OFFICE VISIT, NEW - LEVEL 4 Diagnosis: Encounter for immunization[ICD10: Z23] Diagnosis: Type 2 diabetes mellitus without complications[ICD10: E11.9] Diagnosis: Essential (primary) hypertension[ICD10: I10] Diagnosis: Other emphysema[ICD10: J43.8] Diagnosis: Dependence on supplemental oxygen[ICD10: Z99.81] Diagnosis: Mixed hyperlipidemia[ICD10: E78.2] Lisa Pruitt MD, [facility] CPT- 4: 17918 11/17/2016 Plan of Care Planned Activity Notes Codes Status Date Patient Education: Patient Medication Summary Completed 04/13/2018 Care Plan: Cbc With Differential Pending 04/13/2018 Care Plan: Testosterone Pending 04/13/2018 Care Plan: Tibc Pending 04/13/2018 Care Plan: Iron Pending 04/13/2018 Care Plan: Ferritin Pending 04/13/2018 Visit Plan: Hypogonadism with extreme [...] acute changes. 02/15/2018 Appointment: Lisa Pruitt WPtel: [address] [place], [place] [phone] (15 min) Moderate 02/15/2018 Patient Education: Patient Medication Summary Completed 02/15/2018 Patient Education: Diabetes Completed 02/15/2018 [facility]: Boogie [facility] [phone] [facility] Referral Initiated 01/06/2018 Care Plan: Referral Order SNOMED-CT : [id number] Pending 12/17/2017 Visit Plan: BPH - pt [...] his Emphysema 10/19/2017 [facility] [phone] [facility] (15 min) Moderate 10/19/2017 Patient Education: [...] rehab. 06/11/2017 [facility] [phone] [facility] (15 min) Moderate 06/11/2017 Patient Education: [...] - continue with oxygen at 5 liters [place] - recommended patient to call if his cough worsens, shortness of breath worsens or if he develops a fever. Erectile dysfunction - continue with prn viagra. 02/23/2017 App[facility]ment: [facility] [phone] [facility] [place] (15 min) Moderate 02/23/2017 Patient [...] Flu shot 11/17/2016 [facility] [phone] [facility] New Patient 11/17/2016 Patient Education: Patient Medication Summary Completed 11/17/2016 Patient Education: Obesity Completed 11/17/2016 [facility]ogie [facility] [phone] [facility] [place] Referral Appointment Confirmed Instructions Comment . Hypertension [...]
--- OUTSIDE RECORDS SUMMARY | 2018-07-14 23:21 | XMS REPORT | CCD ---
Author Author [facility] Organization [facility] Address [address] [place] [address] Phone Care Team Providers Care Holder Pile D[employer] Name Role Phone PP Unavailable CCM Unavailable Summary Purpose Interface Exchange Insurance Providers Payer name Policy type / Coverage type Covered constitution party ID Effective Begin Date Effective End Date WPS Medicare Part B Medicare Part B [id number] 2017 Unknown AARP Medicare Part B [id number] 2017 Unknown Family history Mother Diagnosis Age [...] Unknown 2 11/17/2016 Employment Unknown Retired from [employer] 11/17/[address]: 0212442 Former smoker 11/17/2016 Alcohol history Unknown occasionally drinks alcohol 11/17/2016 Frequency of drinks SNOMED CT: 742548889 Drinks rarely 1 in 3 or 4 months 11/17/2016 Has the patient ever used illegal drugs? Unknown Has never used illegal drugs 11/17/2016 Allergies, Adverse Reactions, Alerts Substance Reaction Codes Entered Date Inactivated Date Status Shellfish anaphylaxis Unknown 11/17/2016 No Inactive Date Active demerol nausea, RxNorm: 816135 11/17/2016 No Inactive Date Active Past Medical History Illness Codes Condition Status Onset Date Resolved Date Essential (primary) hypertension ICD-9: 401.1 ICD-10: I10 Active 11/17/2016 Unknown Male erectile disorder ICD-9: 302.72 ICD-10: F52.21 Active 02/23/2017 Unknown Other emphysema ICD-9: 492.8 ICD-10: J43.8 Active 11/17/2016 Unknown Testicular hypofunction ICD-9: 257.2 [...] ICD-9: V46.2 ICD-10: Z99.81 Active 11/17/2016 Unknown Mixed hyperlipidemia ICD- 9: 272.2 ICD-10: E78.2 Active 11/17/2016 Unknown Problems Condition Codes Effective Dates Condition Status Essential (primary) hypertension ICD-9: 401.1 ICD-10: I10 11/17/2016 Active Male erectile disorder ICD-9: 302.72 ICD-10: F52.21 02/23/2017 Active Other emphysema ICD-9: 492.8 ICD-10: J43.8 11/17/2016 Active Testicular hypofunction ICD-9: 257.2 ICD-10: [...] oxygen ICD-9: V46.2 ICD-10: Z99.81 11/17/2016 Active Mixed hyperlipidemia ICD- 9: 272.2 ICD-10: E78.2 11/17/2016 Active Medications Medication Codes Instructions Start Date Stop Date Status Fill Instructions tramadol 50 mg tablet RxNorm: 775889 1-2 Tablet(s) PO QID as needed for pain 04/12/2018 06/10/2018 Active diltiazem ER 300 mg tablet,extended release 24 hr RxNorm: 070680 1 Tablet(s) PO daily 04/12/2018 04/06/2019 Active tramadol 50 mg tablet RxNorm: 983380 1-2 Tablet(s) PO QID as needed for pain 01/12/2018 03/11/2018 Inactive Cipro 500 mg tablet RxNorm: 422075 1 Tablet(s) PO BID 12/17/2017 12/26/2017 Inactive Cipro 500 mg tablet RxNorm: 478848 1 Tablet(s) PO BID 12/16/2017 12/16/2017 Inactive Singulair 10 mg tablet RxNorm: 059974 1 tab(s) PO qPM 11/26/2017 No Stop Date Active Symbicort 160 mcg-4.5 mcg/actuation HFA aerosol inhaler RxNorm: 4996457 2 Puff(s) INH BID 11/10/2017 01/08/2018 Inactive tramadol 50 mg tablet RxNorm: 230129 1-2 Tablet(s) PO QID as needed for pain 11/10/2017 01/07/2018 Inactive testosterone cypionate 200 mg/mL intramuscular oil RxNorm: 030597 2.25 Milliliter(s) IM C4zzxyc 11/04/2017 07/01/2018 Active metoprolol tartrate 50 mg tablet RxNorm: 150052 1 Tablet(s) PO BID 10/19/2017 No Stop Date Active gemfibrozil 600 mg tablet RxNorm: 931839 1 Tablet(s) PO BID 10/16/2017 10/10/2018 Active sildenafil (antihypertensive) 20 mg tablet RxNorm: 928247 TAKE 2&1/2 TABLETS BY MOUTH DIRECTED 10/02/2017 02/22/2018 Inactive Generic For:REVATIO 20 MG TABLET N O T I C E PRESCRIPTION PREVIOUSLY AUTHORIZED BY DOCTOR:WESLEY NINO omeprazole 40 mg capsule,delayed release RxNorm: 269419 1 cap(s) PO Daily 09/09/2017 No Stop Date Active tamsulosin 0.4 mg capsule RxNorm: 550758 TAKE 1 CAPSULE BY MOUTH DAILY NEEDED 09/09/2017 09/03/2018 Active Generic For:FLOMAX 0.4 MG CAPSULE SA 09/07/2017 12:43:43 PM 09/09/2017 1:54:53 PM lisinopril 20 mg tablet RxNorm: 206861 1 tab(s) PO BID 09/09/2017 No Stop Date Active Vitamin D2 50,000 unit capsule RxNorm: 1215235 1 Capsule(s) PO QW 09/09/2017 12/01/2017 Inactive tramadol 50 mg tablet RxNorm: 911437 1-2 Tablet(s) PO QID as needed for pain 09/07/2017 01/11/2018 Inactive tramadol 50 mg tablet RxNorm: 906852 1-2 Tablet(s) PO QID 08/14/2017 11/09/2017 Inactive testosterone cypionate 200 mg/mL intramuscular oil RxNorm: 547468 2 Milliliter(s) IM D4aywmw 07/29/2017 11/03/2017 Inactive tramadol 50 mg tablet RxNorm: 224003 1-2 Tablet(s) PO QID as needed for pain 06/08/2017 08/05/2017 Inactive testosterone cypionate 200 mg/mL intramuscular oil RxNorm: 179116 2.25 Milliliter(s) IM L1udntg 06/08/2017 07/28/2017 Inactive gemfibrozil 600 mg tablet RxNorm: 126666 1 Tablet(s) PO BID 05/20/2017 05/19/2017 Inactive gemfibrozil 600 mg tablet RxNorm: 272508 1 Tablet(s) PO BID 05/20/2017 10/15/2017 Inactive Vitamin D2 50,000 unit capsule RxNorm: 0426342 1 Capsule(s) PO QW 04/29/2017 07/21/2017 Inactive Vitamin D2 50,000 unit capsule RxNorm: 421248 1 Capsule(s) PO QW 04/29/2017 04/28/2017 Inactive testosterone cypionate 200 mg/mL intramuscular oil RxNorm: 275502 300 Milligram(s) IM monthly 04/10/2017 No Stop Date Active diltiazem ER 300 mg tablet,extended release 24 hr RxNorm: 613080 1 Tablet(s) PO daily 04/10/2017 01/04/2018 Inactive multivitamin tablet RxNorm: 1 Tablet(s) PO daily No Start Date Active ProAir HFA 90 mcg/actuation aerosol inhaler RxNorm: 919253 2 Puff(s) INH QID No Start Date Active pravastatin 20 mg tablet RxNorm: 037591 1 Tablet(s) PO daily No Start Date Active Eliquis 5 mg tablet RxNorm: 5311949 1 Tablet(s) PO BID No Start Date Active Flonase Allergy Relief 50 mcg/actuation nasal spray,suspension RxNorm: 5287016 2 [place] NASAL daily No Start Date Active albuterol sulfate 2.5 mg/3 mL (0.083 %) solution for nebulization RxNorm: 460220 3 Milliliter(s) INH Q6 for wheezing No Start Date Active EpiPen 2-[place]arcel[place] 0.3 mg/0.3 mL injection, auto-injector RxNorm: 597252 0.3 Milliliter(s) IM PRN allergic reaction No Start Date Active hydrocodone 10 mg-acetaminophen 325 mg tablet RxNorm: 608295 1 Tablet(s) PO Q4H No Start Date Active Spiriva Respimat 2.5 mcg/actuation solution for inhalation RxNorm: 4845723 2 Puff(s) INH daily No Start Date Active tramadol 50 mg tablet RxNorm: 404676 1 Tablet(s) PO Q4H No Start Date 08/13/2017 Inactive diltiazem ER 300 mg tablet,extended release 24 hr RxNorm: 700689 1 Tablet(s) PO daily No Start Date 04/09/2017 Inactive Singulair 10 mg tablet RxNorm: 604354 1 Tablet(s) PO daily No Start Date 11/25/2017 Inactive Zyrtec 10 mg tablet RxNorm: 4138315 1 Tablet(s) PO daily No Start Date 10/18/2017 Inactive sildenafil (antihypertensive) 20 mg tablet RxNorm: 095735 3 Tablet(s) PO as needed No Start Date 10/01/2017 Inactive metoprolol tartrate 25 mg tablet RxNorm: 761859 1 Tablet(s) PO BID No Start Date 10/18/2017 Inactive omeprazole 40 mg capsule,delayed release RxNorm: 872628 1 Capsule(s) PO daily No Start Date 09/08/2017 Inactive Symbicort 160 mcg-4.5 mcg/actuation HFA aerosol inhaler RxNorm: 4762530 2 Puff(s) INH BID No Start Date 11/09/2017 Inactive amiodarone 200 mg tablet RxNorm: 741749 1 Tablet(s) PO daily No Start Date 02/22/2017 Inactive tamsulosin 0.4 mg capsule RxNorm: 404078 1 Capsule(s) PO daily No Start Date 09/08/2017 Inactive lisinopril 20 mg tablet RxNorm: 507291 1 Tablet(s) PO BID No Start Date 09/08/2017 Inactive Fish Oil 300 mg-1,000 mg capsule RxNorm: 643389 2 Capsule(s) PO QAM and 1 Capsule PO QPM No Start Date 10/18/2017 Inactive Vitamin D3 2,000 unit tablet RxNorm: 155744 1 Tablet(s) PO daily No Start Date 02/14/2018 Inactive testosterone cypionate 200 mg/mL intramuscular oil RxNorm: 225557 300 Milligram(s) IM monthly No Start Date 04/09/2017 Inactive Medication Administered No Medication Administered data Immunizations Vaccine Codes Date Status Influenza CVX: 141 10/19/2017 completed Pneumococcal (Adult) CVX: 133 11/19/2016 completed Influenza CVX: 141 11/17/2016 completed Influenza CVX: 141 11/10/2015 completed Pneumococcal (Adult) CVX: 33 11/10/2015 completed Assessments Condition Codes Effective Dates Testicular hypofunction ICD-10: E29.1 ICD-9: 257.2 02/15/2018 Essential (primary) hypertension ICD-10: I10 ICD-9: 401.1 02/15/2018 Type 2 diabetes mellitus without complications ICD-10: [...] for immunization ICD-10: Z23 ICD-9: V03.9 11/19/2016 Mixed hyperlipidemia ICD-10: E78.2 ICD-9: 272.2 11/17/2016 Dependence on supplemental oxygen ICD-10: Z99.81 ICD-9: V46.2 11/17/2016 Reason For Visit Reason For Visit Effective Dates Notes hypertension 02/15/2018 urinary frequency 12/16/2017 hypertension 10/19/2017 hypertension 06/11/2017 hypertension 02/23/2017 vaccination against pneumonia 11/19/2016 hypertension 11/17/2016 Results Observation Observation Code Item Item Code Result Date Testosterone Dle353 Testo 27.4 ng/dL 12/17/2017 Urinalysis Ord28 U-Color [...] 30.7 pg 12/16/2017 Cbc With Differential Ord2 [place]% 15.0 % 12/16/2017 Cbc With Differential Ord2 [...] 1.42 K/ul 12/16/2017 Cbc With Differential Ord2 [place] ABS# 0.9 K/ul 12/16/2017 Cbc With Differential [...] 30.1 pg 07/22/2017 Cbc With Differential Ord2 [place]% 14.5 % 07/22/2017 Cbc With Differential Ord2 [...] 1.41 K/ul 07/22/2017 Cbc With Differential Ord2 [place] ABS# 1.0 K/ul 07/22/2017 Cbc With Differential Ord2 Eos ABS# 0.1 K/ul 07/22/2017 Cbc With Differential Ord2 Baso ABS# 0.0 K/ul 07/22/2017 Testosterone Caf396 Testo 1132.5 ng/dL 07/22/2017 Cbc With Differential [...] 28.6 pg 05/19/2017 Cbc With Differential Ord2 [place]% 13.9 % 05/19/2017 Cbc With Differential Ord2 [...] 1.20 K/ul 05/19/2017 Cbc With Differential Ord2 [place] ABS# 0.9 K/ul 05/19/2017 Cbc With Differential Ord2 Eos ABS# 0.1 K/ul 05/19/2017 Cbc With Differential Ord2 Baso ABS# 0.0 K/ul 05/19/2017 Comp Metabolic Kge010 NA 136 mEq/L 11/18/2016 Comp Metabolic Nxy366 K 4.2 mEq/L 11/18/2016 Comp Metabolic Qsv232 CL 106 mEq/L 11/18/2016 Comp Metabolic Qfi646 CO2 21.0 mEq/L 11/18/2016 Comp Metabolic Oia933 ANION GAP 13 11/18/2016 Comp Metabolic Cfg608 GLUCOSE 96 mg/dL 11/18/2016 Comp Metabolic Vah230 Creat 1.0 mg/dL 11/18/2016 Comp Metabolic Haz159 eGFR 77 ml/min/1.73m2 11/18/2016 Comp Metabolic Sbe630 BUN 13 mg/dL 11/18/2016 Comp Metabolic Azn191 B/C Ratio 13.0 Ratio 11/18/2016 Comp Metabolic Npp109 CALCIUM 8.9 mg/dL 11/18/2016 Comp Metabolic Lqe699 ALK PHOS 88 U/L 11/18/2016 Comp Metabolic Dqz330 AST(SGOT) 17 U/L 11/18/2016 Comp Metabolic Sfb423 ALT(SGPT) 16 U/L 11/18/2016 Comp Metabolic Wfv456 BILI T 0.9 mg/dL 11/18/2016 Comp Metabolic Dsd671 ALBUMIN 3.9 g/dL 11/18/2016 Comp Metabolic Yii548 TPRO 6.4 g/dL 11/18/2016 Comp Metabolic Rbl399 GLOB 2.5 g/dL 11/18/2016 Comp Metabolic Vyk301 A/G Ratio 1.6 Ratio 11/18/2016 Comp Metabolic Jri552 Osmo 272 mOsmo 11/18/2016 %Hba1C Xcf629 % HbA1c 97048- 6 5.7 % 11/18/2016 %Hba1C Far292 Gluc Ave 117 mg/dL 11/18/2016 Cbc With [...] 27.7 pg 11/18/2016 Cbc With Differential Ord2 [place]% 14.0 % 11/18/2016 Cbc With Differential Ord2 [...] 1.07 K/ul 11/18/2016 Cbc With Differential Ord2 [place] ABS# 1.0 K/ul 11/18/2016 Cbc With Differential [...] lips 02/15/2018 None Full Exam - General 1994 Ears/Nose/Throat lips/teeth/gingiva Overall: normal dentition 02/15/2018 None [...] clear 10/19/2017 None Full Exam - General 1995 Ears/Nose/Throat lips/teeth/gingiva Overall: benign lips 10/19/2017 None Full Exam - General 1994 Ears/Nose/Throat lips/teeth/gingiva Overall: normal dentition 10/19/2017 None Full Exam - General 1995 Ears/Nose/Throat [...] FLU VACC PRSV FREE INC ANTIG CPT-4: 49477 10/19/2017 ADMIN PNEUMOCOCCAL VACCINE SNOMED CT: 18597481 CPT-4: G0009 11/19/2016 PNEUMOCOCCAL VACC [address]: 97752828 CPT-4: 50445 11/19/2016 ADMIN INFLUENZA VIRUS VAC CPT-4: G0008 11/17/2016 FLU VACC PRSV FREE INC ANTIG CPT-4: 75603 11/17/2016 Vital Signs Date Vital 02/15/2018 Blood Pressure 1: 118/62 Code: 8480-6 BMI: 32.5 Code: 39619-4 Heart Rate 1: 63 bpm Height: 5'11" SpO2: 98% Weight: 233 lbs 12/16/2017 Blood Pressure 1: 130/74 Code: 8480-6 BMI: 32.4 Code: 36479-2 Heart Rate 1: 58 bpm Height: 5'11" SpO2: 95% Weight: 232 lbs 10/19/2017 Blood Pressure 1: 132/70 Code: 8480-6 BMI: 33.1 Code: 80950-6 Heart Rate 1: 54 bpm Height: 5'11" SpO2: 97% Weight: 237 lbs 06/11/2017 Blood Pressure 1: 126/74 Code: 8480-6 BMI: 33.8 Code: 83382-5 Heart Rate 1: 60 bpm Height: 5'11" SpO2: 94% Weight: 242 lbs 8 oz 02/23/2017 Blood Pressure 1: 138/82 Code: 8480-6 BMI: 33.8 Code: 85662-7 Heart Rate 1: 65 bpm Height: 5'11" SpO2: 94% Weight: 242 lbs 11/17/2016 Blood Pressure 1: 132/70 Code: 8480-6 BMI: 33.6 Code: 07694-9 Heart Rate 1: 57 bpm Height: 5'11" [...] data Encounters Encounter Performer Location Codes Date 34487 EST. PATIENT, LEVEL IV Diagnosis: Essential (primary) hypertension[ICD10: I10] Diagnosis: Other emphysema[ICD10: J43.8] Diagnosis: Male erectile disorder[ICD10: F52.21] Diagnosis: Testicular hypofunction[ICD10: E29.1] Diagnosis: Type 2 diabetes mellitus without complications[ICD10: E11.9] [facility] CPT-4: 67222 02/15/2018 [id number] EST. PATIENT, LEVEL IV Diagnosis: Benign prostatic hyperplasia with lower urinary tract symptoms[ICD10: N40.1] Diagnosis: Other retention of urine[ICD10: R33.8] Diagnosis: Hesitancy of micturition[ICD10: R39.11] Diagnosis: Testicular hypofunction[ICD10: E29.1] [facility] CPT- 4: 46448 12/16/2017 ([id number]) 23227 EST. PATIENT, LEVEL IV Diagnosis: Type 2 diabetes mellitus without complications[ICD10: E11.9] Diagnosis: Essential (primary) hypertension[ICD10: I10] Diagnosis: Encounter for immunization[ICD10: Z23] Diagnosis: Other emphysema[ICD10: J43.8] Diagnosis: Testicular hypofunction[ICD10: E29.1] [facility], [facility] CPT-4: 23238 10/19/2017 ([id number]) 70012 EST. PATIENT, LEVEL IV Diagnosis: Type 2 diabetes mellitus without complications[ICD10: E11.9] Diagnosis: Essential (primary) hypertension[ICD10: I10] Diagnosis: Male erectile disorder[ICD10: F52.21] Diagnosis: Testicular hypofunction[ICD10: E29.1] [facility], [facility] CPT-4: 13583 06/11/2017 ([id number]) 32113 EST. PATIENT, LEVEL IV Diagnosis: Type 2 diabetes mellitus without complications[ICD10: E11.9] Diagnosis: Cough[ICD10: R05] Diagnosis: Other emphysema[ICD10: J43.8] Diagnosis: Male erectile disorder[ICD10: F52.21] [facility], [facility] CPT-4: 77842 02/23/2017 ([id number]) OFFICE VISIT, NEW - LEVEL 4 Diagnosis: Encounter for immunization[ICD10: Z23] Diagnosis: Type 2 diabetes mellitus without complications[ICD10: E11.9] Diagnosis: Essential (primary) hypertension[ICD10: I10] Diagnosis: Other emphysema[ICD10: J43.8] Diagnosis: Dependence on supplemental oxygen[ICD10: Z99.81] Diagnosis: Mixed hyperlipidemia[ICD10: E78.2] [facility], [facility] CPT- 4: 31129 11/17/2016 Plan of Care Planned Activity Notes [...] acute changes. 02/15/2018 [facility] [phone] [facility] ([facility] min) Moderate 02/15/2018 Patient Education: Patient Medication Summary Completed 02/15/2018 Patient Education: Diabetes Completed 02/15/2018 [facility] [phone] [id number] Ref[facility] Initiated 01/06/2018 Care Plan: Referral Order SNOMED-CT : [id number] Pending 12/17/2017 Visit Plan: BPH - pt [...] his Emphysema 10/19/2017 Appointment: Lisa Pruitt WPtel: [phone] [facility] [address] (15 min) Moderate 10/19/2017 Patient Education: Patient [...] rehab. 06/11/2017 [facility]: [phone] [facility] (15 min) Moderate 06/11/2017 Patient Education: [...] - continue with oxygen at 5 liters HI - recommended patient to call if his cough worsens, shortness of breath worsens or if he develops a fever. Erectile dysfunction - continue with prn viagra. 02/23/2017 Appointment: Lisa Pruitt WPtel: [phone] [facility] [address] (15 min) Moderate 02/23/2017 Patient Education: Patient [...] shot 11/17/2016 Appointment: Lisa Pruitt WPtel: [phone] [facility] [address] New Patient 11/17/2016 Patient Education: Patient Medication Summary Completed 11/17/2016 Patient Education: Obesity Completed 11/17/2016 Referral: Boogie [place] [facility]el[facility] [phone] [id number] [place] Referral Appointment Confirmed Instructions Comment . [...]
--- OUTSIDE RECORDS SUMMARY | 2018-07-14 23:22 | XMS REPORT | CCD ---
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 Name Role Phone PP Unavailable CCM Unavailable Summary Purpose Interface Exchange Insurance Providers Payer name Policy type / Coverage type Covered republican ID Effective Begin Date Effective End Date WPS Medicare Part B Medicare Part B [id number] 2017 Unknown AARP Medicare Part B [id number] 2017 Unknown Family history Mother Diagnosis Age [...] Unknown 2 11/17/2016 Employment Unknown Retired from [employer] 11/17/[address]: 0990175 Former smoker 11/17/2016 Alcohol history Unknown occasionally drinks alcohol 11/17/2016 Frequency of drinks SNOMED CT: 272188413 Drinks rarely 1 in 3 or 4 months 11/17/2016 Has the patient ever used illegal drugs? Unknown Has never used illegal drugs 11/17/2016 Allergies, Adverse Reactions, Alerts Substance Reaction Codes Entered Date Inactivated Date Status Shellfish anaphylaxis Unknown 11/17/2016 No Inactive Date Active demerol nausea, RxNorm: 215835 11/17/2016 No Inactive Date Active Past Medical [...] Start Date Stop Date Status Fill Instructions diltiazem ER 300 mg tablet,extended release 24 hr RxNorm: 508907 1 Tablet(s) PO daily 04/12/2018 04/06/2019 Active tramadol 50 mg tablet RxNorm: 394948 1-2 Tablet(s) PO QID as needed for pain 01/12/2018 03/12/2018 Inactive Cipro 500 mg tablet RxNorm: 933615 1 Tablet(s) PO BID 12/17/2017 12/26/2017 Inactive Cipro 500 mg tablet RxNorm: 313134 1 Tablet(s) PO BID 12/16/2017 12/16/2017 Inactive Singulair 10 mg tablet RxNorm: 133532 1 tab(s) PO qPM 11/26/2017 No Stop Date Active Symbicort 160 mcg-4.5 mcg/actuation HFA aerosol inhaler RxNorm: 6418675 2 Puff(s) INH BID 11/10/2017 01/08/2018 Inactive tramadol 50 mg tablet RxNorm: 960652 1-2 Tablet(s) PO QID as needed for pain 11/10/2017 01/07/2018 Inactive testosterone cypionate 200 mg/mL intramuscular oil RxNorm: 210108 2.25 Milliliter(s) IM [id number] 11/04/2017 07/01/2018 Active metoprolol tartrate 50 mg tablet RxNorm: 227746 1 Tablet(s) PO BID 10/19/2017 No Stop Date Active gemfibrozil 600 mg tablet RxNorm: 691489 1 Tablet(s) PO BID 10/16/2017 10/10/2018 Active sildenafil (antihypertensive) 20 mg tablet RxNorm: 658203 TAKE 2&1/2 TABLETS BY MOUTH DIRECTED 10/02/2017 02/22/2018 Inactive Generic For:REVATIO 20 MG TABLET N O T I C E PRESCRIPTION PREVIOUSLY AUTHORIZED BY DOCTOR:WESLEY NINO omeprazole 40 mg capsule,delayed release RxNorm: 682368 1 cap(s) PO Daily 09/09/2017 No Stop Date Active tamsulosin 0.4 mg capsule RxNorm: 241523 TAKE 1 CAPSULE BY MOUTH DAILY NEEDED 09/09/2017 09/03/2018 Active Generic For:FLOMAX 0.4 MG CAPSULE SA 09/07/2017 12:43:43 PM 09/09/2017 1:54:53 PM lisinopril 20 mg tablet RxNorm: 115333 1 tab(s) PO BID 09/09/2017 No Stop Date Active Vitamin D2 50,000 unit capsule RxNorm: 8585975 1 Capsule(s) PO QW 09/09/2017 12/01/2017 Inactive tramadol 50 mg tablet RxNorm: 218753 1-2 Tablet(s) PO QID as needed for pain 09/07/2017 01/11/2018 Inactive tramadol 50 mg tablet RxNorm: 620277 1-2 Tablet(s) PO QID 08/14/2017 11/09/2017 Inactive testosterone cypionate 200 mg/mL intramuscular oil RxNorm: 053863 2 Milliliter(s) IM [id number] 07/29/2017 11/03/2017 Inactive tramadol 50 mg tablet RxNorm: 649870 1-2 Tablet(s) PO QID as needed for pain 06/08/2017 08/05/2017 Inactive testosterone cypionate 200 mg/mL intramuscular oil RxNorm: 579697 2.25 Milliliter(s) IM [id number] 06/08/2017 07/28/2017 Inactive gemfibrozil 600 mg tablet RxNorm: 410275 1 Tablet(s) PO BID 05/20/2017 05/19/2017 Inactive gemfibrozil 600 mg tablet RxNorm: 283469 1 Tablet(s) PO BID 05/20/2017 10/15/2017 Inactive Vitamin D2 50,000 unit capsule RxNorm: 1070972 1 Capsule(s) PO QW 04/29/2017 07/21/2017 Inactive Vitamin D2 50,000 unit capsule RxNorm: 530056 1 Capsule(s) PO QW 04/29/2017 04/28/2017 Inactive testosterone cypionate 200 mg/mL intramuscular oil RxNorm: 674821 300 Milligram(s) IM monthly 04/10/2017 No Stop Date Active diltiazem ER 300 mg tablet,extended release 24 hr RxNorm: 302192 1 Tablet(s) PO daily 04/10/2017 01/04/2018 Inactive multivitamin tablet RxNorm: 1 Tablet(s) PO daily No Start Date Active ProAir HFA 90 mcg/actuation aerosol inhaler RxNorm: 228389 2 Puff(s) INH QID No Start Date Active pravastatin 20 mg tablet RxNorm: 715634 1 Tablet(s) PO daily No Start Date Active Eliquis 5 mg tablet RxNorm: 8166640 1 Tablet(s) PO BID No Start Date Active Flonase Allergy Relief 50 mcg/actuation nasal spray,suspension RxNorm: 3570190 2 [place] NASAL daily No Start Date Active albuterol sulfate 2.5 mg/3 mL (0.083 %) solution for nebulization RxNorm: 629768 3 Milliliter(s) INH Q6 for wheezing No Start Date Active EpiPen 2-[place]arcel[place] 0.3 mg/0.3 mL injection, auto-injector RxNorm: 145705 0.3 Milliliter(s) IM PRN allergic reaction No Start Date Active hydrocodone 10 mg-acetaminophen 325 mg tablet RxNorm: 106893 1 Tablet(s) PO Q4H No Start Date Active Spiriva Respimat 2.5 mcg/actuation solution for inhalation RxNorm: 1110357 2 Puff(s) INH daily No Start Date Active tramadol 50 mg tablet RxNorm: 646552 1 Tablet(s) PO Q4H No Start Date 08/13/2017 Inactive diltiazem ER 300 mg tablet,extended release 24 hr RxNorm: 218973 1 Tablet(s) PO daily No Start Date 04/09/2017 Inactive Singulair 10 mg tablet RxNorm: 476960 1 Tablet(s) PO daily No Start Date 11/25/2017 Inactive Zyrtec 10 mg tablet RxNorm: 0737123 1 Tablet(s) PO daily No Start Date 10/18/2017 Inactive sildenafil (antihypertensive) 20 mg tablet RxNorm: 623101 3 Tablet(s) PO as needed No Start Date 10/01/2017 Inactive metoprolol tartrate 25 mg tablet RxNorm: 911380 1 Tablet(s) PO BID No Start Date 10/18/2017 Inactive omeprazole 40 mg capsule,delayed release RxNorm: 456043 1 Capsule(s) PO daily No Start Date 09/08/2017 Inactive Symbicort 160 mcg-4.5 mcg/actuation HFA aerosol inhaler RxNorm: 2087466 2 Puff(s) INH BID No Start Date 11/09/2017 Inactive amiodarone 200 mg tablet RxNorm: 432024 1 Tablet(s) PO daily No Start Date 02/22/2017 Inactive tamsulosin 0.4 mg capsule RxNorm: 255208 1 Capsule(s) PO daily No Start Date 09/08/2017 Inactive lisinopril 20 mg tablet RxNorm: 966474 1 Tablet(s) PO BID No Start Date 09/08/2017 Inactive Fish Oil 300 mg-1,000 mg capsule RxNorm: 178422 2 Capsule(s) PO QAM and 1 Capsule PO QPM No Start Date 10/18/2017 Inactive Vitamin D3 2,000 unit tablet RxNorm: 327604 1 Tablet(s) PO daily No Start Date 02/14/2018 Inactive testosterone cypionate 200 mg/mL intramuscular oil RxNorm: 923554 300 Milligram(s) IM monthly No Start Date [...] Code Item Item Code Result Date Testosterone Fid246 Testo 27.4 ng/dL 12/17/2017 Urinalysis Ord28 U-Color [...] 60.5 % 12/16/2017 Cbc With Differential Ord2 Lymph% 22.9 % 12/16/2017 Cbc With Differential Ord2 MCV 90.5 fl 12/16/2017 Cbc With Differential Ord2 [place]% 15.0 % 12/16/2017 Cbc With Differential Ord2 MCH 30.7 pg 12/16/2017 Cbc With Differential Ord2 Eos% 1.1 % 12/16/2017 Cbc With Differential Ord2 MCHC 33.9 pg 12/16/2017 Cbc With Differential Ord2 PLT 194 K/ul 12/16/2017 Cbc With Differential Ord2 Baso% 0.5 % 12/16/2017 Cbc With Differential Ord2 RDW 15.3 % 12/16/2017 Cbc With Differential Ord2 Neut ABS# 3.76 K/ul 12/16/2017 Cbc With Differential Ord2 Lymph ABS# 1.42 K/ul 12/16/2017 Cbc With Differential Ord2 [place] ABS# 0.9 K/ul 12/16/2017 Cbc With Differential [...] 30.1 pg 07/22/2017 Cbc With Differential Ord2 [place]% 14.5 % 07/22/2017 Cbc With Differential Ord2 [...] 1.41 K/ul 07/22/2017 Cbc With Differential Ord2 [place] ABS# 1.0 K/ul 07/22/2017 Cbc With Differential Ord2 Eos ABS# 0.1 K/ul 07/22/2017 Cbc With Differential Ord2 Baso ABS# 0.0 K/ul 07/22/2017 Testosterone Fyq210 Testo 1132.5 ng/dL 07/22/2017 Cbc With Differential [...] 28.6 pg 05/19/2017 Cbc With Differential Ord2 [place]% 13.9 % 05/19/2017 Cbc With Differential Ord2 [...] 1.20 K/ul 05/19/2017 Cbc With Differential Ord2 [place] ABS# 0.9 K/ul 05/19/2017 Cbc With Differential Ord2 Eos ABS# 0.1 K/ul 05/19/2017 Cbc With Differential Ord2 Baso ABS# 0.0 K/ul 05/19/2017 Comp Metabolic Mzc565 NA 136 mEq/L 11/18/2016 Comp Metabolic Brl746 K 4.2 mEq/L 11/18/2016 Comp Metabolic Aon924 CL 106 mEq/L 11/18/2016 Comp Metabolic Iab595 CO2 21.0 mEq/L 11/18/2016 Comp Metabolic Wme725 ANION GAP 13 11/18/2016 Comp Metabolic Lxc364 GLUCOSE 96 mg/dL 11/18/2016 Comp Metabolic Mbh492 Creat 1.0 mg/dL 11/18/2016 Comp Metabolic Ajh409 eGFR 77 ml/min/1.73m2 11/18/2016 Comp Metabolic Kov794 BUN 13 mg/dL 11/18/2016 Comp Metabolic Oau855 B/C Ratio 13.0 Ratio 11/18/2016 Comp Metabolic Kkr152 CALCIUM 8.9 mg/dL 11/18/2016 Comp Metabolic Fuw848 ALK PHOS 88 U/L 11/18/2016 Comp Metabolic Dwc941 AST(SGOT) 17 U/L 11/18/2016 Comp Metabolic Lye848 ALT(SGPT) 16 U/L 11/18/2016 Comp Metabolic Ybf327 BILI T 0.9 mg/dL 11/18/2016 Comp Metabolic Rno952 ALBUMIN 3.9 g/dL 11/18/2016 Comp Metabolic Dnb080 TPRO 6.4 g/dL 11/18/2016 Comp Metabolic Vky225 GLOB 2.5 g/dL 11/18/2016 Comp Metabolic Rgb402 A/G Ratio 1.6 Ratio 11/18/2016 Comp Metabolic Kvx361 Osmo 272 mOsmo 11/18/2016 %Hba1C Gkt142 % HbA1c 22951- 6 5.7 % 11/18/2016 %Hba1C Xta761 Gluc Ave 117 mg/dL 11/18/2016 Cbc With Differential Ord2 WBC 7.45 K/ul 11/18/2016 Cbc With Differential Ord2 RBC 5.70 M/ul 11/18/2016 Cbc With Differential Ord2 HGB 15.8 g/dl 11/18/2016 Cbc With Differential Ord2 Neut% 69.9 % 11/18/2016 Cbc With Differential Ord2 HCT 47.7 % 11/18/2016 Cbc With Differential Ord2 MCV 83.7 fl 11/18/2016 Cbc With Differential Ord2 Lymph% 14.4 % 11/18/2016 Cbc With Differential Ord2 MCH 27.7 pg 11/18/2016 Cbc With Differential Ord2 [place]% 14.0 % 11/18/2016 Cbc With Differential Ord2 MCHC 33.1 pg 11/18/2016 Cbc With Differential Ord2 Eos% 1.3 % 11/18/2016 Cbc With Differential Ord2 PLT 220 K/ul 11/18/2016 Cbc With Differential Ord2 Baso% 0.4 % 11/18/2016 Cbc With Differential Ord2 Neut ABS# 5.21 K/ul 11/18/2016 Cbc With Differential Ord2 RDW 21.1 % 11/18/2016 Cbc With Differential Ord2 Lymph ABS# 1.07 K/ul 11/18/2016 Cbc With Differential Ord2 [place] ABS# 1.0 K/ul 11/18/2016 Cbc With Differential [...] dentition 02/15/2018 None Full Exam - General 1994 Ears/Nose/Throat oral cavity/pharynx/larynx Overall: oral mucosa clear 02/15/2018 None Full Exam - General 1994 Ears/Nose/Throat oral cavity/pharynx/larynx Overall: oropharyngeal mucosa clear 02/15/2018 None Full Exam - General 1995 Ears/Nose/Throat oral cavity/pharynx/larynx Overall: hypopharynx benign 02/15/2018 None Full Exam - General 1995 Ears/Nose/Throat oral cavity/pharynx/larynx Overall: no masses 02/15/2018 [...] diminished 11/17/2016 None Full Exam - General 1995 Neurologic gait Overall: no ataxia, no unsteadiness 11/17/2016 None Procedures Procedure Codes Date ADMIN INFLUENZA VIRUS VAC CPT-4: G0008 10/19/2017 FLU VACC PRSV FREE INC ANTIG CPT-4: 27620 10/19/2017 ADMIN PNEUMOCOCCAL VACCINE SNOMED CT: 87955337 CPT-4: G0009 11/19/2016 PNEUMOCOCCAL VACC [address]: 37333475 CPT-4: 45371 11/19/2016 ADMIN INFLUENZA VIRUS VAC CPT-4: G0008 11/17/2016 FLU VACC PRSV FREE INC ANTIG CPT-4: 05528 11/17/2016 Vital Signs Date Vital 02/15/2018 Blood Pressure 1: 118/62 Code: 8480-6 BMI: 32.5 Code: 23583-1 Heart Rate 1: 63 bpm Height: 5'11" SpO2: 98% Weight: 233 lbs 12/16/2017 Blood Pressure 1: 130/74 Code: 8480-6 BMI: 32.4 Code: 82208-1 Heart Rate 1: 58 bpm Height: 5'11" SpO2: 95% Weight: 232 lbs 10/19/2017 Blood Pressure 1: 132/70 Code: 8480-6 BMI: 33.1 Code: 87278-9 Heart Rate 1: 54 bpm Height: 5'11" SpO2: 97% Weight: 237 lbs 06/11/2017 Blood Pressure 1: 126/74 Code: 8480-6 BMI: 33.8 Code: 45384-7 Heart Rate 1: 60 bpm Height: 5'11" SpO2: 94% Weight: 242 lbs 8 oz 02/23/2017 Blood Pressure 1: 138/82 Code: 8480-6 BMI: 33.8 Code: 12198-2 Heart Rate 1: 65 bpm Height: 5'11" SpO2: 94% Weight: 242 lbs 11/17/2016 Blood Pressure 1: 132/70 Code: 8480-6 BMI: 33.6 Code: 06807-2 Heart Rate 1: 57 bpm Height: 5'11" [...] data Encounters Encounter Performer Location Codes Date ([id number]) 13091 EST. PATIENT, LEVEL IV Diagnosis: Essential (primary) hypertension[ICD10: I10] Diagnosis: Other emphysema[ICD10: J43.8] Diagnosis: Male erectile disorder[ICD10: F52.21] Diagnosis: Testicular hypofunction[ICD10: E29.1] Diagnosis: Type 2 diabetes mellitus without complications[ICD10: E11.9] Lisa Pruitt MD, [facility] CPT-4: 42381 02/15/2018 16810 EST. PATIENT, LEVEL IV Diagnosis: Benign prostatic hyperplasia with lower urinary tract symptoms[ICD10: N40.1] Diagnosis: Other retention of urine[ICD10: R33.8] Diagnosis: Hesitancy of micturition[ICD10: R39.11] Diagnosis: Testicular hypofunction[ICD10: E29.1] Tori Pruitt MD, [facility] CPT- 4: 31777 12/16/2017 ([id number]) 57451 EST. PATIENT, LEVEL IV Diagnosis: Type 2 diabetes mellitus without complications[ICD10: E11.9] Diagnosis: Essential (primary) hypertension[ICD10: I10] Diagnosis: Encounter for immunization[ICD10: Z23] Diagnosis: Other emphysema[ICD10: J43.8] Diagnosis: Testicular hypofunction[ICD10: E29.1] Lisa Pruitt MD, [facility] CPT-4: 38789 10/19/2017 ([id number]) 68937 EST. PATIENT, LEVEL IV Diagnosis: Type 2 diabetes mellitus without complications[ICD10: E11.9] Diagnosis: Essential (primary) hypertension[ICD10: I10] Diagnosis: Male erectile disorder[ICD10: F52.21] Diagnosis: Testicular hypofunction[ICD10: E29.1] Lisa Pruitt MD, [facility] CPT-4: 60833 06/11/2017 ([id number]) 54214 EST. PATIENT, LEVEL IV Diagnosis: Type 2 diabetes mellitus without complications[ICD10: E11.9] Diagnosis: Cough[ICD10: R05] Diagnosis: Other emphysema[ICD10: J43.8] Diagnosis: Male erectile disorder[ICD10: F52.21] Lisa Pruitt MD, [facility] CPT-4: 15397 02/23/2017 ([id number]) OFFICE VISIT, NEW - LEVEL 4 Diagnosis: Encounter for immunization[ICD10: Z23] Diagnosis: Type 2 diabetes mellitus without complications[ICD10: E11.9] Diagnosis: Essential (primary) hypertension[ICD10: I10] Diagnosis: Other emphysema[ICD10: J43.8] Diagnosis: Dependence on supplemental oxygen[ICD10: Z99.81] Diagnosis: Mixed hyperlipidemia[ICD10: E78.2] Lisa Pruitt MD, [facility] CPT- 4: 26623 11/17/2016 Plan of Care Planned Activity Notes [...] changes. 02/15/2018 [facility] [phone] [facility] ([facility] min) Moderate 02/15/2018 Patient Education: Patient Medication Summary Completed 02/15/2018 Patient Education: Diabetes Completed 02/15/2018 [facility]: Boogie [facility] [phone] [id number] Referral Initiated 01/06/2018 Care Plan: Referral Order SNOMED-CT : [id number] Pending 12/17/2017 Visit Plan: BPH - pt [...] due to his Emphysema 10/19/2017 Appointment: Lisa Prutit WPtel: [phone] [facility] (15 min) Moderate 10/19/2017 Patient Education: Patient [...] rehab. 06/11/2017 Appointment: Lisa Pruitt WPtel: [phone] [facility] (15 min) Moderate 06/11/2017 Patient Education: Patient [...] - continue with prn viagra. 02/23/2017 [facility]ment[facility] [phone] [facility] (15 min) Moderate 02/23/2017 Patient Education: Patient [...] Flu shot 11/17/2016 [facility]ment: [facility] [phone] [facility] [place] New Patient 11/17/2016 Patient Education: Patient Medication Summary Completed 11/17/2016 Patient Education: Obesity Completed 11/17/2016 Referral: Boogie Warren WPtel: [phone] [id number] Referral Appointment Confirmed Instructions Comment . Hypertension [...]
[2018-07-14 23:23] LABS: BASOPHILS % (AUTO) 1 % (0-10); EOSINOPHILS # (AUTO) 0.1 10^3/uL (0.0-0.3); EOSINOPHILS % (AUTO) 1 % (0-10); HEMATOCRIT 48 % (40-54); HEMOGLOBIN 16.3 G/DL (13.3-17.7); LYMPHOCYTES # (AUTO) 1.5 X 10^3 (1.0-4.0); LYMPHOCYTES % (AUTO) 27 % (12-44); MEAN CORPUSCULAR HEMOGLOBIN 31 PG (25-34); MEAN CORPUSCULAR HGB CONC 34 G/DL (32-36); MEAN CORPUSCULAR VOLUME 92 FL (80-99); MONOCYTES # (AUTO) 0.8 X 10^3 (0.0-1.0); MONOCYTES % (AUTO) 15 % (0-12); NEUTROPHILS # (AUTO) 3.1 X 10^3 (1.8-7.8); NEUTROPHILS % (AUTO) 57 % (42-75); PLATELET COUNT 213 10^3/uL (130-400); RED CELL DISTRIBUTION WIDTH 14.9 % (10.0-14.5); WHITE BLOOD COUNT 5.5 10^3/uL (4.3-11.0)
--- OUTSIDE RECORDS SUMMARY | 2018-07-14 23:23 | XMS REPORT | CCD ---
Author Author Lisa Pruitt Organization [facility] Address [address] [place] [address] Phone Care Team Providers Care Project Manager/Design Manager Name Role Phone PP Unavailable CCM Unavailable Summary Purpose Interface Exchange Insurance Providers Payer name Policy type / Coverage type Covered republican ID Effective Begin Date Effective End Date WPS Medicare Part B Medicare Part B [id number] 2017 Unknown AARP Medicare Part B [id number] 2017 Unknown Family history Mother Diagnosis Age [...] Unknown 2 11/17/2016 Employment Unknown Retired from [employer] 11/17/[address]: 3404218 Former smoker 11/17/2016 Alcohol history Unknown occasionally drinks alcohol 11/17/2016 Frequency of drinks SNOMED CT: 973492685 Drinks rarely 1 in 3 or 4 months 11/17/2016 Has the patient ever used illegal drugs? Unknown Has never used illegal drugs 11/17/2016 Allergies, Adverse Reactions, Alerts Substance Reaction Codes Entered Date Inactivated Date Status Shellfish anaphylaxis Unknown 11/17/2016 No Inactive Date Active demerol nausea, RxNorm: 615782 11/17/2016 No Inactive Date Active Past Medical [...] Fill Instructions tramadol 50 mg tablet RxNorm: 199060 1-2 Tablet(s) PO QID as needed for pain 01/12/2018 03/12/2018 Active Cipro 500 mg tablet RxNorm: 011378 1 Tablet(s) PO BID 12/17/2017 12/26/2017 Inactive Cipro 500 mg tablet RxNorm: 410796 1 Tablet(s) PO BID 12/16/2017 12/16/2017 Inactive Singulair 10 mg tablet RxNorm: 615542 1 tab(s) PO qPM 11/26/2017 No Stop Date Active Symbicort 160 mcg-4.5 mcg/actuation HFA aerosol inhaler RxNorm: 6739965 2 Puff(s) INH BID 11/10/2017 01/08/2018 Inactive tramadol 50 mg tablet RxNorm: 764680 1-2 Tablet(s) PO QID as needed for pain 11/10/2017 01/07/2018 Inactive testosterone cypionate 200 mg/mL intramuscular oil RxNorm: 817313 2.25 Milliliter(s) IM W4ldwry 11/04/2017 07/01/2018 Active metoprolol tartrate 50 mg tablet RxNorm: 827154 1 Tablet(s) PO BID 10/19/2017 No Stop Date Active gemfibrozil 600 mg tablet RxNorm: 814607 1 Tablet(s) PO BID 10/16/2017 10/10/2018 Active sildenafil (antihypertensive) 20 mg tablet RxNorm: 810557 TAKE 2&1/2 TABLETS BY MOUTH DIRECTED 10/02/2017 02/22/2018 Active Generic For:REVATIO 20 MG TABLET N O T I C E PRESCRIPTION PREVIOUSLY AUTHORIZED BY DOCTOR:WESLEY NINO omeprazole 40 mg capsule,delayed release RxNorm: 781479 1 cap(s) PO Daily 09/09/2017 No Stop Date Active tamsulosin 0.4 mg capsule RxNorm: 610391 TAKE 1 CAPSULE BY MOUTH DAILY NEEDED 09/09/2017 09/03/2018 Active Generic For:FLOMAX 0.4 MG CAPSULE SA 09/07/2017 12:43:43 PM 09/09/2017 1:54:53 PM lisinopril 20 mg tablet RxNorm: 774025 1 tab(s) PO BID 09/09/2017 No Stop Date Active Vitamin D2 50,000 unit capsule RxNorm: 5635859 1 Capsule(s) PO QW 09/09/2017 12/01/2017 Inactive tramadol 50 mg tablet RxNorm: 472251 1-2 Tablet(s) PO QID as needed for pain 09/07/2017 01/11/2018 Inactive tramadol 50 mg tablet RxNorm: 340559 1-2 Tablet(s) PO QID 08/14/2017 11/09/2017 Inactive testosterone cypionate 200 mg/mL intramuscular oil RxNorm: 806063 2 Milliliter(s) IM Q2viwks 07/29/2017 11/03/2017 Inactive tramadol 50 mg tablet RxNorm: 589580 1-2 Tablet(s) PO QID as needed for pain 06/08/2017 08/05/2017 Inactive testosterone cypionate 200 mg/mL intramuscular oil RxNorm: 465654 2.25 Milliliter(s) IM W1glpzi 06/08/2017 07/28/2017 Inactive gemfibrozil 600 mg tablet RxNorm: 801717 1 Tablet(s) PO BID 05/20/2017 05/19/2017 Inactive gemfibrozil 600 mg tablet RxNorm: 474031 1 Tablet(s) PO BID 05/20/2017 10/15/2017 Inactive Vitamin D2 50,000 unit capsule RxNorm: 3035767 1 Capsule(s) PO QW 04/29/2017 07/21/2017 Inactive Vitamin D2 50,000 unit capsule RxNorm: 223056 1 Capsule(s) PO QW 04/29/2017 04/28/2017 Inactive diltiazem ER 300 mg tablet,extended release 24 hr RxNorm: 283307 1 Tablet(s) PO daily 04/10/2017 01/04/2018 Inactive testosterone cypionate 200 mg/mL intramuscular oil RxNorm: 196965 300 Milligram(s) IM monthly 04/10/2017 No Stop Date Active multivitamin tablet RxNorm: 1 Tablet(s) PO daily No Start Date Active ProAir HFA 90 mcg/actuation aerosol inhaler RxNorm: 313067 2 Puff(s) INH QID No Start Date Active pravastatin 20 mg tablet RxNorm: 231654 1 Tablet(s) PO daily No Start Date Active Eliquis 5 mg tablet RxNorm: 5618793 1 Tablet(s) PO BID No Start Date Active Flonase Allergy Relief 50 mcg/actuation nasal spray,suspension RxNorm: 6487944 2 [place] NASAL daily No Start Date Active albuterol sulfate 2.5 mg/3 mL (0.083 %) solution for nebulization RxNorm: 290981 3 Milliliter(s) INH Q6 for wheezing No Start Date Active EpiPen 2-Marcelo 0.3 mg/0.3 mL injection, auto-injector RxNorm: 642938 0.3 Milliliter(s) IM PRN allergic reaction No Start Date Active hydrocodone 10 mg-acetaminophen 325 mg tablet RxNorm: 502995 1 Tablet(s) PO Q4H No Start Date Active Spiriva Respimat 2.5 mcg/actuation solution for inhalation RxNorm: 3459030 2 Puff(s) INH daily No Start Date Active tramadol 50 mg tablet RxNorm: 713951 1 Tablet(s) PO Q4H No Start Date 08/13/2017 Inactive diltiazem ER 300 mg tablet,extended release 24 hr RxNorm: 095773 1 Tablet(s) PO daily No Start Date 04/09/2017 Inactive Singulair 10 mg tablet RxNorm: 865363 1 Tablet(s) PO daily No Start Date 11/25/2017 Inactive Zyrtec 10 mg tablet RxNorm: 1304437 1 Tablet(s) PO daily No Start Date 10/18/2017 Inactive sildenafil (antihypertensive) 20 mg tablet RxNorm: 970608 3 Tablet(s) PO as needed No Start Date 10/01/2017 Inactive metoprolol tartrate 25 mg tablet RxNorm: 679695 1 Tablet(s) PO BID No Start Date 10/18/2017 Inactive omeprazole 40 mg capsule,delayed release RxNorm: 193740 1 Capsule(s) PO daily No Start Date 09/08/2017 Inactive Symbicort 160 mcg-4.5 mcg/actuation HFA aerosol inhaler RxNorm: 8031035 2 Puff(s) INH BID No Start Date 11/09/2017 Inactive amiodarone 200 mg tablet RxNorm: 995855 1 Tablet(s) PO daily No Start Date 02/22/2017 Inactive tamsulosin 0.4 mg capsule RxNorm: 017296 1 Capsule(s) PO daily No Start Date 09/08/2017 Inactive lisinopril 20 mg tablet RxNorm: 935985 1 Tablet(s) PO BID No Start Date 09/08/2017 Inactive Fish Oil 300 mg-1,000 mg capsule RxNorm: 528917 2 Capsule(s) PO QAM and 1 Capsule PO QPM No Start Date 10/18/2017 Inactive Vitamin D3 2,000 unit tablet RxNorm: 974204 1 Tablet(s) PO daily No Start Date 02/14/2018 Inactive testosterone cypionate 200 mg/mL intramuscular oil RxNorm: 830464 300 Milligram(s) IM monthly No Start Date [...] Code Item Item Code Result Date Testosterone Tse792 Testo 27.4 ng/dL 12/17/2017 Urinalysis Ord28 U-Color [...] U-VOL VOLUME SUFFICIENT (10mL) 12/16/2017 Urinalysis Ord28 U-Com No culture indicated, Urine saved if culture needed (specimen acceptable for 48 hours from collection if refrigerated) 12/16/2017 Urinalysis Ord28 U-Yeast NEGATIVE 12/16/2017 Cbc With Differential Ord2 WBC 6.21 K/ul 12/16/2017 Cbc With Differential Ord2 RBC 6.09 M/ul 12/16/2017 Cbc With Differential Ord2 HGB 18.7 g/dl 12/16/2017 Cbc With Differential Ord2 HCT 55.1 % 12/16/2017 Cbc With Differential Ord2 Neut% 60.5 % 12/16/2017 Cbc With Differential Ord2 Lymph% 22.9 % 12/16/2017 Cbc With Differential Ord2 MCV 90.5 fl 12/16/2017 Cbc With Differential Ord2 [place]% 15.0 % 12/16/2017 Cbc With Differential Ord2 MCH 30.7 pg 12/16/2017 Cbc With Differential Ord2 MCHC 33.9 pg 12/16/2017 Cbc With Differential Ord2 Eos% 1.1 % 12/16/2017 Cbc With Differential Ord2 PLT 194 K/ul 12/16/2017 Cbc With Differential Ord2 Baso% 0.5 % 12/16/2017 Cbc With Differential Ord2 RDW 15.3 % 12/16/2017 Cbc With Differential Ord2 Neut ABS# 3.76 K/ul 12/16/2017 Cbc With Differential Ord2 Lymph ABS# 1.42 K/ul 12/16/2017 Cbc With Differential Ord2 [place] ABS# 0.9 K/ul 12/16/2017 Cbc With Differential [...] 30.1 pg 07/22/2017 Cbc With Differential Ord2 [place]% 14.5 % 07/22/2017 Cbc With Differential Ord2 [...] 1.41 K/ul 07/22/2017 Cbc With Differential Ord2 [place] ABS# 1.0 K/ul 07/22/2017 Cbc With Differential Ord2 Eos ABS# 0.1 K/ul 07/22/2017 Cbc With Differential Ord2 Baso ABS# 0.0 K/ul 07/22/2017 Testosterone Slx179 Testo 1132.5 ng/dL 07/22/2017 Cbc With Differential Ord2 WBC 6.55 K/ul 05/19/2017 Cbc With Differential Ord2 RBC 5.90 M/ul 05/19/2017 Cbc With Differential Ord2 HGB 16.9 g/dl 05/19/2017 Cbc With Differential Ord2 HCT 51.4 % 05/19/2017 Cbc With Differential Ord2 Neut% 66.3 % 05/19/2017 Cbc With Differential Ord2 Lymph% 18.3 % 05/19/2017 Cbc With Differential Ord2 MCV 87.1 fl 05/19/2017 Cbc With Differential Ord2 [place]% 13.9 % 05/19/2017 Cbc With Differential Ord2 MCH 28.6 pg 05/19/2017 Cbc With Differential Ord2 MCHC 32.9 pg 05/19/2017 Cbc With Differential Ord2 Eos% 0.9 % 05/19/2017 Cbc With Differential Ord2 PLT 254 K/ul 05/19/2017 Cbc With Differential Ord2 Baso% 0.6 % 05/19/2017 Cbc With Differential Ord2 RDW 19.1 % 05/19/2017 Cbc With Differential Ord2 Neut ABS# 4.34 K/ul 05/19/2017 Cbc With Differential Ord2 Lymph ABS# 1.20 K/ul 05/19/2017 Cbc With Differential Ord2 [place] ABS# 0.9 K/ul 05/19/2017 Cbc With Differential Ord2 Eos ABS# 0.1 K/ul 05/19/2017 Cbc With Differential Ord2 Baso ABS# 0.0 K/ul 05/19/2017 Comp Metabolic Ziv034 NA 136 mEq/L 11/18/2016 Comp Metabolic Ayr214 K 4.2 mEq/L 11/18/2016 Comp Metabolic Scf144 CL 106 mEq/L 11/18/2016 Comp Metabolic Itr631 CO2 21.0 mEq/L 11/18/2016 Comp Metabolic Ber505 ANION GAP 13 11/18/2016 Comp Metabolic Jag077 GLUCOSE 96 mg/dL 11/18/2016 Comp Metabolic Vys891 Creat 1.0 mg/dL 11/18/2016 Comp Metabolic Eir491 eGFR 77 ml/min/1.73m2 11/18/2016 Comp Metabolic Rvq447 BUN 13 mg/dL 11/18/2016 Comp Metabolic Zbs652 B/C Ratio 13.0 Ratio 11/18/2016 Comp Metabolic Bzc507 CALCIUM 8.9 mg/dL 11/18/2016 Comp Metabolic Byk244 ALK PHOS 88 U/L 11/18/2016 Comp Metabolic Roh489 AST(SGOT) 17 U/L 11/18/2016 Comp Metabolic Lpq183 ALT(SGPT) 16 U/L 11/18/2016 Comp Metabolic Whe115 BILI T 0.9 mg/dL 11/18/2016 Comp Metabolic Emf332 ALBUMIN 3.9 g/dL 11/18/2016 Comp Metabolic Svq796 TPRO 6.4 g/dL 11/18/2016 Comp Metabolic Poc816 GLOB 2.5 g/dL 11/18/2016 Comp Metabolic Uzv375 A/G Ratio 1.6 Ratio 11/18/2016 Comp Metabolic Exi459 Osmo 272 mOsmo 11/18/2016 %Hba1C Miz089 % HbA1c 72981- 6 5.7 % 11/18/2016 %Hba1C Alk921 Gluc Ave 117 mg/dL 11/18/2016 Cbc With [...] 14.4 % 11/18/2016 Cbc With Differential Ord2 [place]% 14.0 % 11/18/2016 Cbc With Differential Ord2 MCH 27.7 pg 11/18/2016 Cbc With Differential Ord2 MCHC 33.1 pg 11/18/2016 Cbc With Differential Ord2 Eos% 1.3 % 11/18/2016 Cbc With Differential Ord2 PLT 220 K/ul 11/18/2016 Cbc With Differential Ord2 Baso% 0.4 % 11/18/2016 Cbc With Differential Ord2 RDW 21.1 % 11/18/2016 Cbc With Differential Ord2 Neut ABS# 5.21 K/ul 11/18/2016 Cbc With Differential Ord2 Lymph ABS# 1.07 K/ul 11/18/2016 Cbc With Differential Ord2 [place] ABS# 1.0 K/ul 11/18/2016 Cbc With Differential [...] 1994 Ears/Nose/Throat oral cavity/pharynx/larynx Overall: hypopharynx benign 02/15/2018 [...] FLU VACC PRSV FREE INC ANTIG CPT-4: 87102 10/19/2017 ADMIN PNEUMOCOCCAL VACCINE SNOMED CT: 36456603 CPT-4: G0009 11/19/2016 PNEUMOCOCCAL VACC [address]: 74053115 CPT-4: 69734 11/19/2016 ADMIN INFLUENZA VIRUS VAC CPT-4: G0008 11/17/2016 FLU VACC PRSV FREE INC ANTIG CPT-4: 49125 11/17/2016 Vital Signs Date Vital 02/15/2018 Blood Pressure 1: 118/62 Code: 8480-6 BMI: 32.5 Code: 06389-2 Heart Rate 1: 63 bpm Height: 5'11" SpO2: 98% Weight: 233 lbs 12/16/2017 Blood Pressure 1: 130/74 Code: 8480-6 BMI: 32.4 Code: 98386-5 Heart Rate 1: 58 bpm Height: 5'11" SpO2: 95% Weight: 232 lbs 10/19/2017 Blood Pressure 1: 132/70 Code: 8480-6 BMI: 33.1 Code: 19784-7 Heart Rate 1: 54 bpm Height: 5'11" SpO2: 97% Weight: 237 lbs 06/11/2017 Blood Pressure 1: 126/74 Code: 8480-6 BMI: 33.8 Code: 34497-2 Heart Rate 1: 60 bpm Height: 5'11" SpO2: 94% Weight: 242 lbs 8 oz 02/23/2017 Blood Pressure 1: 138/82 Code: 8480-6 BMI: 33.8 Code: 06732-3 Heart Rate 1: 65 bpm Height: 5'11" SpO2: 94% Weight: 242 lbs 11/17/2016 Blood Pressure 1: 132/70 Code: 8480-6 BMI: 33.6 Code: 06479-8 Heart Rate 1: 57 bpm Height: 5'11" [...] data Encounters Encounter Performer Location Codes Date ([id number]) [id number] EST. PATIENT, LEVEL IV Diagnosis: Essential (primary) hypertension[ICD10: I10] Diagnosis: Other emphysema[ICD10: J43.8] Diagnosis: Male erectile disorder[ICD10: F52.21] Diagnosis: Testicular hypofunction[ICD10: E29.1] Diagnosis: Type 2 diabetes mellitus without complications[ICD10: E11.9] Lisa Pruitt MD, [facility] CPT-4: 70823 02/15/2018 [id number] EST. PATIENT, LEVEL IV Diagnosis: Benign prostatic hyperplasia with lower urinary tract symptoms[ICD10: N40.1] Diagnosis: Other retention of urine[ICD10: R33.8] Diagnosis: Hesitancy of micturition[ICD10: R39.11] Diagnosis: Testicular hypofunction[ICD10: E29.1] [facility] CPT- 4: 50558 12/16/2017 ([id number] EST. PATIENT, LEVEL IV Diagnosis: Type 2 diabetes mellitus without complications[ICD10: E11.9] Diagnosis: Essential (primary) hypertension[ICD10: I10] Diagnosis: Encounter for immunization[ICD10: Z23] Diagnosis: Other emphysema[ICD10: J43.8] Diagnosis: Testicular hypofunction[ICD10: E29.1] Lisa Pruitt MD, [facility] CPT-4: 48460 10/19/2017 ([id number] EST. PATIENT, LEVEL IV Diagnosis: Type 2 diabetes mellitus without complications[ICD10: E11.9] Diagnosis: Essential (primary) hypertension[ICD10: I10] Diagnosis: Male erectile disorder[ICD10: F52.21] Diagnosis: Testicular hypofunction[ICD10: E29.1] Lisa Pruitt MD, [facility] CPT-4: 20211 06/11/2017 ([id number]) [id number] EST. PATIENT, LEVEL IV Diagnosis: Type 2 diabetes mellitus without complications[ICD10: E11.9] Diagnosis: Cough[ICD10: R05] Diagnosis: Other emphysema[ICD10: J43.8] Diagnosis: Male erectile disorder[ICD10: F52.21] Lisa Pruitt MD, [facility] CPT-4: 82833 02/23/2017 ([id number]) OFFICE VISIT, NEW - LEVEL 4 Diagnosis: Encounter for immunization[ICD10: Z23] Diagnosis: Type 2 diabetes mellitus without complications[ICD10: E11.9] Diagnosis: Essential (primary) hypertension[ICD10: I10] Diagnosis: Other emphysema[ICD10: J43.8] Diagnosis: Dependence on supplemental oxygen[ICD10: Z99.81] Diagnosis: Mixed hyperlipidemia[ICD10: E78.2] Lisa Pruitt MD, [facility] CPT- 4: 71310 11/17/2016 Plan of Care Planned Activity Notes [...] acute changes. 02/15/2018 Appointment: Lisa Pruitt WPtel: [phone] [facility] [place] (15 min) Moderate 02/15/2018 Patient Education: Patient Medication Summary Completed 02/15/2018 Patient Education: Diabetes Completed 02/15/2018 Referral: Boogie [facility] [phone] [facility] Referral Initiated 01/06/2018 Care Plan: Referral Order SNOMED-CT : [id number] Pending 12/17/2017 Visit Plan: BPH - pt [...] - continue with oxygen at 5 liters OK - recommended patient to call if his cough worsens, shortness of breath worsens or if he develops a fever. Erectile dysfunction - continue with prn cialis Flu shot given to pt today - high dose due to his Emphysema 10/19/2017 [facility] [phone] [facility] [place] ([facility] min) Moderate 10/19/2017 Patient Education: [...] Pulmonary rehab. 06/11/2017 Appointment: Lisa Pruitt WPtel: [phone] [facility] [place] (15 min) Moderate 06/11/2017 Patient Education: Patient [...] viagra. 02/23/2017 Appointment: Lisa Pruitt WPtel: [phone] [facility] (15 min) Moderate 02/23/2017 Patient Education: Patient [...] shot 11/17/2016 [facility] [phone] [facility] [facility] 11/17/2016 Patient Education: Patient Medication Summary Completed 11/17/2016 Patient Education: Obesity Completed 11/17/2016 [facility]: Boogie Warren [facility] [phone] [facility] [facility] App[facility]ment Confirmed Instructions Comment . [...]
--- OUTSIDE RECORDS SUMMARY | 2018-07-14 23:25 | XMS REPORT | CCD ---
Author Author Lisa Pruitt Organization [facility] Address [address] [place] [address] Phone Care Team Providers [facility] Name Role Phone PP Unavailable CCM Unavailable Summary Purpose Interface Exchange Insurance Providers Payer name Policy type / Coverage type Covered alliance party ID Effective Begin Date Effective End Date WPS Medicare Part B Medicare Part B [id number] 2017 Unknown AARP Medicare Part B [id number] 2017 Unknown Family history Mother Diagnosis Age [...] Unknown 4 11/17/2016 Employment Unknown Retired from [employer] 11/17/[address]: 7704688 Former smoker 11/17/2016 Alcohol history Unknown occasionally drinks alcohol 11/17/2016 Frequency of drinks SNOMED CT: 219247467 Drinks rarely 1 in 3 or 4 months 11/17/2016 Has the patient ever used illegal drugs? Unknown Has never used illegal drugs 11/17/2016 Allergies, Adverse Reactions, Alerts Substance Reaction Codes Entered Date Inactivated Date Status Shellfish anaphylaxis Unknown 11/17/2016 No Inactive Date Active demerol nausea, RxNorm: 101256 11/17/2016 No Inactive Date Active Past Medical History Illness Codes Condition Status Onset Date Resolved Date Benign prostatic hyperplasia with lower urinary tract symptoms ICD-9: 600.01 ICD-10: N40.1 Active 12/16/2017 Unknown Hesitancy of micturition ICD-9: 788.64 ICD-10: R39.11 Active 12/16/2017 Unknown Other retention of urine ICD-9: 788.29 ICD-10: R33.8 Active 12/16/2017 Unknown Testicular hypofunction ICD-9: 257.2 ICD-10: E29.1 Active 06/11/2017 Unknown Encounter for immunization ICD-9: V04.81 ICD-10: Z23 Active 11/17/2016 Unknown Essential (primary) hypertension ICD-9: 401.1 ICD-10: I10 Active 11/17/2016 Unknown Other emphysema ICD-9: 492.8 ICD-10: J43.8 Active 11/17/2016 Unknown Type 2 diabetes mellitus without complications ICD-9: 250.00 ICD-10: E11.9 Active 11/17/2016 Unknown 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 Active 05/18/2017 Unknown Male erectile disorder ICD-9: 302.72 ICD-10: F52.21 Active 02/23/2017 Unknown Cough ICD-9: 786.2 ICD-10: R05 Active 02/23/2017 Unknown Encounter for immunization ICD-9: V03.9 ICD-10: Z23 Active 11/19/2016 Unknown Diabetes Unknown Active 11/17/2016 Unknown Dependence on supplemental oxygen ICD-9: V46.2 ICD-10: Z99.81 Active 11/17/2016 Unknown Mixed hyperlipidemia ICD- 9: 272.2 ICD-10: E78.2 Active 11/17/2016 Unknown Problems Condition Codes Effective Dates Condition Status Benign prostatic hyperplasia with lower urinary tract symptoms ICD-9: 600.01 ICD-10: N40.1 12/16/2017 Active Hesitancy of micturition ICD-9: 788.64 ICD-10: R39.11 12/16/2017 Active Other retention of urine ICD-9: 788.29 ICD-10: R33.8 12/16/2017 Active Testicular hypofunction ICD-9: 257.2 ICD-10: E29.1 06/11/2017 Active Encounter for immunization ICD-9: V04.81 ICD-10: Z23 11/17/2016 Active Essential (primary) hypertension ICD-9: 401.1 ICD-10: I10 11/17/2016 Active Other emphysema ICD-9: 492.8 ICD-10: J43.8 11/17/2016 Active Type 2 diabetes mellitus without complications ICD-9: 250.00 ICD-10: E11.9 11/17/2016 Active 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 05/18/2017 Active Male erectile disorder ICD-9: 302.72 ICD-10: F52.21 02/23/2017 Active Cough ICD-9: 786.2 ICD-10: R05 02/23/2017 Active Encounter for immunization ICD-9: V03.9 ICD-10: Z23 11/19/2016 Active Diabetes Unknown 11/17/2016 Active Dependence on supplemental oxygen ICD-9: V46.2 ICD-10: Z99.81 11/17/2016 Active Mixed hyperlipidemia ICD- 9: 272.2 ICD-10: E78.2 11/17/2016 Active Medications Medication Codes Instructions Start Date Stop Date Status Fill Instructions tramadol 50 mg tablet RxNorm: 178667 1-2 Tablet(s) PO QID as needed for pain 01/12/2018 03/12/2018 Active Cipro 500 mg tablet RxNorm: 171470 1 Tablet(s) PO BID 12/17/2017 12/26/2017 Inactive Cipro 500 mg tablet RxNorm: 913267 1 Tablet(s) PO BID 12/16/2017 12/16/2017 Inactive Singulair 10 mg tablet RxNorm: 128735 1 tab(s) PO qPM 11/26/2017 No Stop Date Active Symbicort 160 mcg-4.5 mcg/actuation HFA aerosol inhaler RxNorm: 4521204 2 Puff(s) INH BID 11/10/2017 01/08/2018 Inactive tramadol 50 mg tablet RxNorm: 015024 1-2 Tablet(s) PO QID as needed for pain 11/10/2017 01/07/2018 Inactive testosterone cypionate 200 mg/mL intramuscular oil RxNorm: 910834 2.25 Milliliter(s) IM [id number] 11/04/2017 07/01/2018 Active metoprolol tartrate 50 mg tablet RxNorm: 449451 1 Tablet(s) PO BID 10/19/2017 No Stop Date Active gemfibrozil 600 mg tablet RxNorm: 187629 1 Tablet(s) PO BID 10/16/2017 10/10/2018 Active sildenafil (antihypertensive) 20 mg tablet RxNorm: 874491 TAKE 2&1/2 TABLETS BY MOUTH DIRECTED 10/02/2017 02/22/2018 Active Generic For:REVATIO 20 MG TABLET N O T I C E PRESCRIPTION PREVIOUSLY AUTHORIZED BY DOCTOR:WESLEY NINO omeprazole 40 mg capsule,delayed release RxNorm: 441639 1 cap(s) PO Daily 09/09/2017 No Stop Date Active tamsulosin 0.4 mg capsule RxNorm: 876800 TAKE 1 CAPSULE BY MOUTH DAILY NEEDED 09/09/2017 09/03/2018 Active Generic For:FLOMAX 0.4 MG CAPSULE SA 09/07/2017 12:43:43 PM 09/09/2017 1:54:53 PM lisinopril 20 mg tablet RxNorm: 827285 1 tab(s) PO BID 09/09/2017 No Stop Date Active Vitamin D2 50,000 unit capsule RxNorm: 7513162 1 Capsule(s) PO QW 09/09/2017 12/01/2017 Inactive tramadol 50 mg tablet RxNorm: 303095 1-2 Tablet(s) PO QID as needed for pain 09/07/2017 01/11/2018 Inactive tramadol 50 mg tablet RxNorm: 647865 1-2 Tablet(s) PO QID 08/14/2017 11/09/2017 Inactive testosterone cypionate 200 mg/mL intramuscular oil RxNorm: 414420 2 Milliliter(s) IM [id number] 07/29/2017 11/03/2017 Inactive tramadol 50 mg tablet RxNorm: 285596 1-2 Tablet(s) PO QID as needed for pain 06/08/2017 08/05/2017 Inactive testosterone cypionate 200 mg/mL intramuscular oil RxNorm: 084734 2.25 Milliliter(s) IM [id number] 06/08/2017 07/28/2017 Inactive gemfibrozil 600 mg tablet RxNorm: 094225 1 Tablet(s) PO BID 05/20/2017 05/19/2017 Inactive gemfibrozil 600 mg tablet RxNorm: 498777 1 Tablet(s) PO BID 05/20/2017 10/15/2017 Inactive Vitamin D2 50,000 unit capsule RxNorm: 6056673 1 Capsule(s) PO QW 04/29/2017 07/21/2017 Inactive Vitamin D2 50,000 unit capsule RxNorm: 767000 1 Capsule(s) PO QW 04/29/2017 04/28/2017 Inactive diltiazem ER 300 mg tablet,extended release 24 hr RxNorm: 041033 1 Tablet(s) PO daily 04/10/2017 01/04/2018 Inactive testosterone cypionate 200 mg/mL intramuscular oil RxNorm: 998374 300 Milligram(s) IM monthly 04/10/2017 No Stop Date Active multivitamin tablet RxNorm: 1 Tablet(s) PO daily No Start Date Active ProAir HFA 90 mcg/actuation aerosol inhaler RxNorm: 009345 2 Puff(s) INH QID No Start Date Active pravastatin 20 mg tablet RxNorm: 083030 1 Tablet(s) PO daily No Start Date Active Eliquis 5 mg tablet RxNorm: 9585389 1 Tablet(s) PO BID No Start Date Active Flonase Allergy Relief 50 mcg/actuation nasal spray,suspension RxNorm: 1500334 2 [place] NASAL daily No Start Date Active albuterol sulfate 2.5 mg/3 mL (0.083 %) solution for nebulization RxNorm: 960769 3 Milliliter(s) INH Q6 for wheezing No Start Date Active EpiPen 2-Marcelo 0.3 mg/0.3 mL injection, auto-injector RxNorm: 614651 0.3 Milliliter(s) IM PRN allergic reaction No Start Date Active Vitamin D3 2,000 unit tablet RxNorm: 695871 1 Tablet(s) PO daily No Start Date Active hydrocodone 10 mg-acetaminophen 325 mg tablet RxNorm: 933897 1 Tablet(s) PO Q4H No Start Date Active Spiriva Respimat 2.5 mcg/actuation solution for inhalation RxNorm: 4185904 2 Puff(s) INH daily No Start Date Active tramadol 50 mg tablet RxNorm: 444730 1 Tablet(s) PO Q4H No Start Date 08/13/2017 Inactive diltiazem ER 300 mg tablet,extended release 24 hr RxNorm: 338150 1 Tablet(s) PO daily No Start Date 04/09/2017 Inactive Singulair 10 mg tablet RxNorm: 295450 1 Tablet(s) PO daily No Start Date 11/25/2017 Inactive Zyrtec 10 mg tablet RxNorm: 7299690 1 Tablet(s) PO daily No Start Date 10/18/2017 Inactive sildenafil (antihypertensive) 20 mg tablet RxNorm: 932590 3 Tablet(s) PO as needed No Start Date 10/01/2017 Inactive metoprolol tartrate 25 mg tablet RxNorm: 440691 1 Tablet(s) PO BID No Start Date 10/18/2017 Inactive omeprazole 40 mg capsule,delayed release RxNorm: 813368 1 Capsule(s) PO daily No Start Date 09/08/2017 Inactive Symbicort 160 mcg-4.5 mcg/actuation HFA aerosol inhaler RxNorm: 5163840 2 Puff(s) INH BID No Start Date 11/09/2017 Inactive amiodarone 200 mg tablet RxNorm: 058776 1 Tablet(s) PO daily No Start Date 02/22/2017 Inactive tamsulosin 0.4 mg capsule RxNorm: 279068 1 Capsule(s) PO daily No Start Date 09/08/2017 Inactive lisinopril 20 mg tablet RxNorm: 482692 1 Tablet(s) PO BID No Start Date 09/08/2017 Inactive Fish Oil 300 mg-1,000 mg capsule RxNorm: 131690 2 Capsule(s) PO QAM and 1 Capsule PO QPM No Start Date 10/18/2017 Inactive testosterone cypionate 200 mg/mL intramuscular oil RxNorm: 604174 300 Milligram(s) IM monthly No Start Date 04/09/2017 Inactive Medication Administered No Medication Administered data Immunizations Vaccine Codes Date Status Influenza CVX: 141 10/19/2017 completed Pneumococcal (Adult) CVX: 133 11/19/2016 completed Influenza CVX: 141 11/17/2016 completed Influenza CVX: 141 11/10/2015 completed Pneumococcal (Adult) CVX: 33 11/10/2015 completed Assessments Condition Codes Effective Dates Other retention of urine ICD-10: R33.8 ICD-9: 788.29 12/16/2017 Hesitancy of micturition ICD-10: R39.11 ICD-9: 788.64 12/16/2017 Testicular hypofunction ICD-10: E29.1 ICD-9: 257.2 12/16/2017 Benign prostatic hyperplasia with lower urinary tract symptoms ICD-10: N40.1 ICD-9: 600.01 12/16/2017 Essential (primary) hypertension ICD-10: I10 ICD-9: 401.1 10/19/2017 Encounter for immunization ICD-10: Z23 ICD-9: V04.81 10/19/2017 Other emphysema ICD-10: J43.8 ICD-9: 492.8 10/19/2017 Type 2 diabetes mellitus without complications ICD-10: E11.9 ICD-9: 250.00 10/19/2017 Other hemoglobinopathies ICD-10: D58.2 ICD-9: 282.7 07/22/2017 Male erectile disorder ICD-10: F52.21 ICD-9: 302.72 06/11/2017 Cough ICD-10: R05 ICD-9: 786.2 02/23/2017 Encounter for immunization ICD-10: Z23 ICD-9: V03.9 11/19/2016 Mixed hyperlipidemia ICD-10: E78.2 ICD-9: 272.2 11/17/2016 Dependence on supplemental oxygen ICD-10: Z99.81 ICD-9: V46.2 11/17/2016 Reason For Visit Reason For Visit Effective Dates Notes urinary frequency 12/16/2017 hypertension 10/19/2017 hypertension 06/11/2017 hypertension 02/23/2017 vaccination against pneumonia 11/19/2016 hypertension 11/17/2016 Results Observation Observation Code Item Item Code Result Date Testosterone Olj171 Testo 27.4 ng/dL 12/17/2017 Urinalysis Ord28 U-Color [...] Ord2 Baso ABS# 0.0 K/ul 07/22/2017 Testosterone Uqz347 Testo 1132.5 ng/dL 07/22/2017 Cbc With Differential [...] Baso ABS# 0.0 K/ul 05/19/2017 Comp Metabolic Msy585 NA 136 mEq/L 11/18/2016 Comp Metabolic Tac736 K 4.2 mEq/L 11/18/2016 Comp Metabolic Gxm230 CL 106 mEq/L 11/18/2016 Comp Metabolic Uqv360 CO2 21.0 mEq/L 11/18/2016 Comp Metabolic Gno172 ANION GAP 13 11/18/2016 Comp Metabolic Wfj983 GLUCOSE 96 mg/dL 11/18/2016 Comp Metabolic Ums806 Creat 1.0 mg/dL 11/18/2016 Comp Metabolic Vvj333 eGFR 77 ml/min/1.73m2 11/18/2016 Comp Metabolic Fla414 BUN 13 mg/dL 11/18/2016 Comp Metabolic Pxi413 B/C Ratio 13.0 Ratio 11/18/2016 Comp Metabolic Wlu101 CALCIUM 8.9 mg/dL 11/18/2016 Comp Metabolic Exx624 ALK PHOS 88 U/L 11/18/2016 Comp Metabolic Jof294 AST(SGOT) 17 U/L 11/18/2016 Comp Metabolic Nbn801 ALT(SGPT) 16 U/L 11/18/2016 Comp Metabolic Vml271 BILI T 0.9 mg/dL 11/18/2016 Comp Metabolic Jpn724 ALBUMIN 3.9 g/dL 11/18/2016 Comp Metabolic Pue535 TPRO 6.4 g/dL 11/18/2016 Comp Metabolic Obk601 GLOB 2.5 g/dL 11/18/2016 Comp Metabolic Ghm512 A/G Ratio 1.6 Ratio 11/18/2016 Comp Metabolic Wgs492 Osmo 272 mOsmo 11/18/2016 %Hba1C Kau272 % HbA1c 88564- 6 5.7 % 11/18/2016 %Hba1C Hzl682 Gluc Ave 117 mg/dL 11/18/2016 Cbc With [...] Result Effective Dates Constitutional No recent illness 12/16/2017 Constitutional No [...] clear 12/16/2017 None Full Exam - General 1995 Eyes conjunctiva/eyelids Overall: cornea clear 12/16/2017 None [...] dentition 11/17/2016 None Full Exam - General 1995 [...] FLU VACC PRSV FREE INC ANTIG CPT-4: 79462 10/19/2017 ADMIN PNEUMOCOCCAL VACCINE SNOMED CT: 77589864 CPT-4: G0009 11/19/2016 PNEUMOCOCCAL VACC [address]: 50880189 CPT-4: 79276 11/19/2016 ADMIN INFLUENZA VIRUS VAC CPT-4: G0008 11/17/2016 FLU VACC PRSV FREE INC ANTIG CPT-4: 17892 11/17/2016 Vital Signs Date Vital 12/16/2017 Blood Pressure 1: 130/74 Code: 8480-6 BMI: 32.4 Code: 71877-5 Heart Rate 1: 58 bpm Height: 5'11" SpO2: 95% Weight: 232 lbs 10/19/2017 Blood Pressure 1: 132/70 Code: 8480-6 BMI: 33.1 Code: 62870-5 Heart Rate 1: 54 bpm Height: 5'11" SpO2: 97% Weight: 237 lbs 06/11/2017 Blood Pressure 1: 126/74 Code: 8480-6 BMI: 33.8 Code: 91749-0 Heart Rate 1: 60 bpm Height: 5'11" SpO2: 94% Weight: 242 lbs 8 oz 02/23/2017 Blood Pressure 1: 138/82 Code: 8480-6 BMI: 33.8 Code: 84030-0 Heart Rate 1: 65 bpm Height: 5'11" SpO2: 94% Weight: 242 lbs 11/17/2016 Blood Pressure 1: 132/70 Code: 8480-6 BMI: 33.6 Code: 33755-3 Heart Rate 1: 57 bpm Height: 5'11" SpO2: 94% Weight: 241 lbs Functional Status No Functional Status data History of Present Illness Symptom Name Status Result Effective Date Notes urinary frequency Quality constant 12/16/2017 None urinary [...] data Encounters Encounter Performer Location Codes Date EST. PATIENT, LEVEL IV Diagnosis: Benign prostatic hyperplasia with lower urinary tract symptoms[ICD10: N40.1] Diagnosis: Other retention of urine[ICD10: R33.8] Diagnosis: Hesitancy of micturition[ICD10: R39.11] Diagnosis: Testicular hypofunction[ICD10: E29.1] Tori Pruitt MD, [facility] CPT- 4: 76880 12/16/2017 ([id number]) [id number] EST. PATIENT, LEVEL IV Diagnosis: Type 2 diabetes mellitus without complications[ICD10: E11.9] Diagnosis: Essential (primary) hypertension[ICD10: I10] Diagnosis: Encounter for immunization[ICD10: Z23] Diagnosis: Other emphysema[ICD10: J43.8] Diagnosis: Testicular hypofunction[ICD10: E29.1] Lisa Pruitt MD, [facility] CPT-4: 01823 10/19/2017 ([id number]) [id number] EST. PATIENT, LEVEL IV Diagnosis: Type 2 diabetes mellitus without complications[ICD10: E11.9] Diagnosis: Essential (primary) hypertension[ICD10: I10] Diagnosis: Male erectile disorder[ICD10: F52.21] Diagnosis: Testicular hypofunction[ICD10: E29.1] [facility] CPT-4: 95990 06/11/2017 [id number]) [id number] EST. PATIENT, LEVEL IV Diagnosis: Type 2 diabetes mellitus without complications[ICD10: E11.9] Diagnosis: Cough[ICD10: R05] Diagnosis: Other emphysema[ICD10: J43.8] Diagnosis: Male erectile disorder[ICD10: F52.21] [facility] CPT-4: 43564 02/23/2017 ([id number]) OFFICE VISIT, NEW - LEVEL 4 Diagnosis: Encounter for immunization[ICD10: Z23] Diagnosis: Type 2 diabetes mellitus without complications[ICD10: E11.9] Diagnosis: Essential (primary) hypertension[ICD10: I10] Diagnosis: Other emphysema[ICD10: J43.8] Diagnosis: Dependence on supplemental oxygen[ICD10: Z99.81] Diagnosis: Mixed hyperlipidemia[ICD10: E78.2] Lisa Pruitt MD, [facility] CPT- 4: 55329 11/17/2016 Plan of Care Planned Activity Notes Codes Status Date Referral: [facility] [phone] [id number] [facility] Initiated 01/06/2018 Care Plan: Referral Order SNOMED-CT : [id number] Pending 12/17/2017 Visit Plan: BPH - pt [...] - continue with oxygen at 5 liters [place] - recommended patient to call if his cough worsens, shortness of breath worsens or if he develops a fever. Erectile dysfunction - continue with prn cialis Flu shot given to pt today - high dose due to his Emphysema 10/19/2017 Appointment: [facility] Pruitt [id number] [place] (15 min) Moderate 10/19/2017 Patient Education: [...] Pulmonary rehab. 06/11/2017 Appointment: Lisa Pruitt WPtel: [address] [place], [place] [id number] (15 min) Moderate 06/11/2017 Patient Education: Patient [...] prn viagra. 02/23/2017 Appointment: Lisa Pruitt WPtel[id number] (15 min) Moderate 02/23/2017 Patient Education: Patient [...] shot 11/17/2016 Appointment: [facility] P[facility] [phone] [id number] New Patient 11/17/2016 Patient Education: Patient Medication Summary Completed 11/17/2016 Patient Education: Obesity Completed 11/17/2016 [facility]: [facility] [phone] [id number] [facility]ment Confirmed Instructions Comment . [...] that he return to Pulmonary rehab. . Hypertension - well controlled - continue [...]
--- OUTSIDE RECORDS SUMMARY | 2018-07-14 23:26 | XMS REPORT | CCD ---
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 Name Role Phone PP Unavailable CCM Unavailable Summary Purpose Interface Exchange Insurance Providers Payer name Policy type / Coverage type Covered constitution party ID Effective Begin Date Effective End Date WPS Medicare Part B Medicare Part B [id number] 2017 Unknown AARP Medicare Part B [id number] 2017 Unknown Family history Mother Diagnosis Age [...] Unknown 2 11/17/2016 Employment Unknown Retired from [employer] 11/17/[address]: 1505911 Former smoker 11/17/2016 Alcohol history Unknown occasionally drinks alcohol 11/17/2016 Frequency of drinks SNOMED CT: 213230591 Drinks rarely 1 in 3 or 4 months 11/17/2016 Has the patient ever used illegal drugs? Unknown Has never used illegal drugs 11/17/2016 Allergies, Adverse Reactions, Alerts Substance Reaction Codes Entered Date Inactivated Date Status Shellfish anaphylaxis Unknown 11/17/2016 No Inactive Date Active demerol nausea, RxNorm: 960253 11/17/2016 No Inactive Date Active Past Medical [...] Start Date Stop Date Status Fill Instructions Cipro 500 mg tablet RxNorm: 509776 1 Tablet(s) PO BID 12/17/2017 12/26/2017 Active Cipro 500 mg tablet RxNorm: 870301 1 Tablet(s) PO BID 12/16/2017 12/16/2017 Inactive Singulair 10 mg tablet RxNorm: 885694 1 tab(s) PO qPM 11/26/2017 No Stop Date Active tramadol 50 mg tablet RxNorm: 344854 1-2 Tablet(s) PO QID as needed for pain 11/10/2017 01/08/2018 Active Symbicort 160 mcg-4.5 mcg/actuation HFA aerosol inhaler RxNorm: 4211340 2 Puff(s) INH BID 11/10/2017 01/08/2018 Active testosterone cypionate 200 mg/mL intramuscular oil RxNorm: 470324 2.25 Milliliter(s) IM [id number] 11/04/2017 07/01/2018 Active metoprolol tartrate 50 mg tablet RxNorm: 628673 1 Tablet(s) PO BID 10/19/2017 No Stop Date Active gemfibrozil 600 mg tablet RxNorm: 549296 1 Tablet(s) PO BID 10/16/2017 10/10/2018 Active sildenafil (antihypertensive) 20 mg tablet RxNorm: 934648 TAKE 2&1/2 TABLETS BY MOUTH DIRECTED 10/02/2017 02/22/2018 Active Generic For:REVATIO 20 MG TABLET N O T I C E PRESCRIPTION PREVIOUSLY AUTHORIZED BY DOCTOR:WESLEY NINO omeprazole 40 mg capsule,delayed release RxNorm: 759836 1 cap(s) PO Daily 09/09/2017 No Stop Date Active tamsulosin 0.4 mg capsule RxNorm: 237899 TAKE 1 CAPSULE BY MOUTH DAILY NEEDED 09/09/2017 09/03/2018 Active Generic For:FLOMAX 0.4 MG CAPSULE SA 09/07/2017 12:43:43 PM 09/09/2017 1:54:53 PM lisinopril 20 mg tablet RxNorm: 176079 1 tab(s) PO BID 09/09/2017 No Stop Date Active Vitamin D2 50,000 unit capsule RxNorm: 8736991 1 Capsule(s) PO QW 09/09/2017 12/01/2017 Inactive tramadol 50 mg tablet RxNorm: 198876 1-2 Tablet(s) PO QID as needed for pain 09/07/2017 11/04/2017 Inactive tramadol 50 mg tablet RxNorm: 923518 1-2 Tablet(s) PO QID 08/14/2017 11/09/2017 Inactive testosterone cypionate 200 mg/mL intramuscular oil RxNorm: 649877 2 Milliliter(s) IM A2kcbrh 07/29/2017 11/03/2017 Inactive tramadol 50 mg tablet RxNorm: 075447 1-2 Tablet(s) PO QID as needed for pain 06/08/2017 08/05/2017 Inactive testosterone cypionate 200 mg/mL intramuscular oil RxNorm: 662029 2.25 Milliliter(s) IM B1jmunh 06/08/2017 07/28/2017 Inactive gemfibrozil 600 mg tablet RxNorm: 927763 1 Tablet(s) PO BID 05/20/2017 05/19/2017 Inactive gemfibrozil 600 mg tablet RxNorm: 467583 1 Tablet(s) PO BID 05/20/2017 10/15/2017 Inactive Vitamin D2 50,000 unit capsule RxNorm: 7074274 1 Capsule(s) PO QW 04/29/2017 07/21/2017 Inactive Vitamin D2 50,000 unit capsule RxNorm: 042335 1 Capsule(s) PO QW 04/29/2017 04/28/2017 Inactive diltiazem ER 300 mg tablet,extended release 24 hr RxNorm: 848770 1 Tablet(s) PO daily 04/10/2017 01/04/2018 Active testosterone cypionate 200 mg/mL intramuscular oil RxNorm: 186473 300 Milligram(s) IM monthly 04/10/2017 No Stop Date Active multivitamin tablet RxNorm: 1 Tablet(s) PO daily No Start Date Active ProAir HFA 90 mcg/actuation aerosol inhaler RxNorm: 811122 2 Puff(s) INH QID No Start Date Active pravastatin 20 mg tablet RxNorm: 071427 1 Tablet(s) PO daily No Start Date Active Eliquis 5 mg tablet RxNorm: 7053626 1 Tablet(s) PO BID No Start Date Active Flonase Allergy Relief 50 mcg/actuation nasal spray,suspension RxNorm: 9853439 2 [place] NASAL daily No Start Date Active albuterol sulfate 2.5 mg/3 mL (0.083 %) solution for nebulization RxNorm: 576266 3 Milliliter(s) INH Q6 for wheezing No Start Date Active EpiPen 2-[place] 0.3 mg/0.3 mL injection, auto-injector RxNorm: 559363 0.3 Milliliter(s) IM PRN allergic reaction No Start Date Active Vitamin D3 2,000 unit tablet RxNorm: 178449 1 Tablet(s) PO daily No Start Date Active hydrocodone 10 mg-acetaminophen 325 mg tablet RxNorm: 670224 1 Tablet(s) PO Q4H No Start Date Active Spiriva Respimat 2.5 mcg/actuation solution for inhalation RxNorm: 0838060 2 Puff(s) INH daily No Start Date Active tramadol 50 mg tablet RxNorm: 406906 1 Tablet(s) PO Q4H No Start Date 08/13/2017 Inactive diltiazem ER 300 mg tablet,extended release 24 hr RxNorm: 819921 1 Tablet(s) PO daily No Start Date 04/09/2017 Inactive Singulair 10 mg tablet RxNorm: 718587 1 Tablet(s) PO daily No Start Date 11/25/2017 Inactive Zyrtec 10 mg tablet RxNorm: 3185062 1 Tablet(s) PO daily No Start Date 10/18/2017 Inactive sildenafil (antihypertensive) 20 mg tablet RxNorm: 895734 3 Tablet(s) PO as needed No Start Date 10/01/2017 Inactive metoprolol tartrate 25 mg tablet RxNorm: 687704 1 Tablet(s) PO BID No Start Date 10/18/2017 Inactive omeprazole 40 mg capsule,delayed release RxNorm: 780807 1 Capsule(s) PO daily No Start Date 09/08/2017 Inactive Symbicort 160 mcg-4.5 mcg/actuation HFA aerosol inhaler RxNorm: 7878620 2 Puff(s) INH BID No Start Date 11/09/2017 Inactive amiodarone 200 mg tablet RxNorm: 451607 1 Tablet(s) PO daily No Start Date 02/22/2017 Inactive tamsulosin 0.4 mg capsule RxNorm: 820121 1 Capsule(s) PO daily No Start Date 09/08/2017 Inactive lisinopril 20 mg tablet RxNorm: 645601 1 Tablet(s) PO BID No Start Date 09/08/2017 Inactive Fish Oil 300 mg-1,000 mg capsule RxNorm: 039835 2 Capsule(s) PO QAM and 1 Capsule PO QPM No Start Date 10/18/2017 Inactive testosterone cypionate 200 mg/mL intramuscular oil RxNorm: 125053 300 Milligram(s) IM monthly No Start Date [...] Code Item Item Code Result Date Testosterone Acf113 Testo 27.4 ng/dL 12/17/2017 Urinalysis Ord28 U-Color [...] 22.9 % 12/16/2017 Cbc With Differential Ord2 [place]% 15.0 % 12/16/2017 Cbc With Differential Ord2 MCH 30.7 pg 12/16/2017 Cbc With Differential Ord2 MCHC 33.9 pg 12/16/2017 Cbc With Differential Ord2 Eos% 1.1 % 12/16/2017 Cbc With Differential Ord2 Baso% 0.5 % 12/16/2017 Cbc With Differential Ord2 PLT 194 K/ul 12/16/2017 Cbc With Differential Ord2 Neut ABS# 3.76 K/ul 12/16/2017 Cbc With Differential Ord2 RDW 15.3 % 12/16/2017 Cbc With Differential Ord2 Lymph ABS# 1.42 K/ul 12/16/2017 Cbc With Differential Ord2 [place] ABS# 0.9 K/ul 12/16/2017 Cbc With Differential Ord2 Eos ABS# 0.1 K/ul 12/16/2017 Cbc With Differential Ord2 Baso ABS# 0.0 K/ul 12/16/2017 Cbc With Differential Ord2 WBC 6.69 K/ul 07/22/2017 Cbc With Differential Ord2 RBC 5.91 M/ul 07/22/2017 Cbc With Differential Ord2 HGB 17.8 g/dl 07/22/2017 Cbc With Differential Ord2 Neut% 63.3 % 07/22/2017 Cbc With Differential Ord2 HCT 52.7 % 07/22/2017 Cbc With Differential Ord2 MCV 89.2 fl 07/22/2017 Cbc With Differential Ord2 Lymph% 21.1 % 07/22/2017 Cbc With Differential Ord2 MCH 30.1 pg 07/22/2017 Cbc With Differential Ord2 [place]% 14.5 % 07/22/2017 Cbc With Differential Ord2 [...] 1.41 K/ul 07/22/2017 Cbc With Differential Ord2 [place] ABS# 1.0 K/ul 07/22/2017 Cbc With Differential Ord2 Eos ABS# 0.1 K/ul 07/22/2017 Cbc With Differential Ord2 Baso ABS# 0.0 K/ul 07/22/2017 Testosterone Sbr069 Testo 1132.5 ng/dL 07/22/2017 Cbc With Differential [...] 28.6 pg 05/19/2017 Cbc With Differential Ord2 [place]% 13.9 % 05/19/2017 Cbc With Differential Ord2 MCHC 32.9 pg 05/19/2017 Cbc With Differential Ord2 Eos% 0.9 % 05/19/2017 Cbc With Differential Ord2 Baso% 0.6 % 05/19/2017 Cbc With Differential Ord2 PLT 254 K/ul 05/19/2017 Cbc With Differential Ord2 RDW 19.1 % 05/19/2017 Cbc With Differential Ord2 Neut ABS# 4.34 K/ul 05/19/2017 Cbc With Differential Ord2 Lymph ABS# 1.20 K/ul 05/19/2017 Cbc With Differential Ord2 [place] ABS# 0.9 K/ul 05/19/2017 Cbc With Differential Ord2 Eos ABS# 0.1 K/ul 05/19/2017 Cbc With Differential Ord2 Baso ABS# 0.0 K/ul 05/19/2017 Comp Metabolic Zyc286 NA 136 mEq/L 11/18/2016 Comp Metabolic Kbv509 K 4.2 mEq/L 11/18/2016 Comp Metabolic Akf120 CL 106 mEq/L 11/18/2016 Comp Metabolic Who735 CO2 21.0 mEq/L 11/18/2016 Comp Metabolic Xqc292 ANION GAP 13 11/18/2016 Comp Metabolic Nky337 GLUCOSE 96 mg/dL 11/18/2016 Comp Metabolic Ejt099 Creat 1.0 mg/dL 11/18/2016 Comp Metabolic Hbr082 eGFR 77 ml/min/1.73m2 11/18/2016 Comp Metabolic Cgq579 BUN 13 mg/dL 11/18/2016 Comp Metabolic Qaa617 B/C Ratio 13.0 Ratio 11/18/2016 Comp Metabolic Kgp581 CALCIUM 8.9 mg/dL 11/18/2016 Comp Metabolic Rbc575 ALK PHOS 88 U/L 11/18/2016 Comp Metabolic Ujz931 AST(SGOT) 17 U/L 11/18/2016 Comp Metabolic Fjx330 ALT(SGPT) 16 U/L 11/18/2016 Comp Metabolic Jpv430 BILI T 0.9 mg/dL 11/18/2016 Comp Metabolic Txj690 ALBUMIN 3.9 g/dL 11/18/2016 Comp Metabolic Bhu620 TPRO 6.4 g/dL 11/18/2016 Comp Metabolic Lok329 GLOB 2.5 g/dL 11/18/2016 Comp Metabolic Jdy123 A/G Ratio 1.6 Ratio 11/18/2016 Comp Metabolic Ksj871 Osmo 272 mOsmo 11/18/2016 %Hba1C Nyl809 % HbA1c 19716- 6 5.7 % 11/18/2016 %Hba1C Ogt887 Gluc Ave 117 mg/dL 11/18/2016 Cbc With [...] 14.4 % 11/18/2016 Cbc With Differential Ord2 [place]% 14.0 % 11/18/2016 Cbc With Differential Ord2 [...] 1.07 K/ul 11/18/2016 Cbc With Differential Ord2 [place] ABS# 1.0 K/ul 11/18/2016 Cbc With Differential [...] FLU VACC PRSV FREE INC ANTIG CPT-4: 68062 10/19/2017 ADMIN PNEUMOCOCCAL VACCINE SNOMED CT: 74770188 CPT-4: G0009 11/19/2016 PNEUMOCOCCAL VACC [address]: 07286983 CPT-4: 47034 11/19/2016 ADMIN INFLUENZA VIRUS VAC CPT-4: G0008 11/17/2016 FLU VACC PRSV FREE INC ANTIG CPT-4: 54440 11/17/2016 Vital Signs Date Vital 12/16/2017 Blood Pressure 1: 130/74 Code: 8480-6 BMI: 32.4 Code: 90673-2 Heart Rate 1: 58 bpm Height: 5'11" SpO2: 95% Weight: 232 lbs 10/19/2017 Blood Pressure 1: 132/70 Code: 8480-6 BMI: 33.1 Code: 76380-4 Heart Rate 1: 54 bpm Height: 5'11" SpO2: 97% Weight: 237 lbs 06/11/2017 Blood Pressure 1: 126/74 Code: 8480-6 BMI: 33.8 Code: 11367-0 Heart Rate 1: 60 bpm Height: 5'11" SpO2: 94% Weight: 242 lbs 8 oz 02/23/2017 Blood Pressure 1: 138/82 Code: 8480-6 BMI: 33.8 Code: 97143-0 Heart Rate 1: 65 bpm Height: 5'11" SpO2: 94% Weight: 242 lbs 11/17/2016 Blood Pressure 1: 132/70 Code: 8480-6 BMI: 33.6 Code: 75808-1 Heart Rate 1: 57 bpm Height: 5'11" [...] data Encounters Encounter Performer Location Codes Date 95357 EST. PATIENT, LEVEL IV Diagnosis: Benign prostatic hyperplasia with lower urinary tract symptoms[ICD10: N40.1] Diagnosis: Other retention of urine[ICD10: R33.8] Diagnosis: Hesitancy of micturition[ICD10: R39.11] Diagnosis: Testicular hypofunction[ICD10: E29.1] Tori Pruitt MD, [facility] CPT- 4: 51383 12/16/2017 ([id number]) [id number] EST. PATIENT, LEVEL IV Diagnosis: Type 2 diabetes mellitus without complications[ICD10: E11.9] Diagnosis: Essential (primary) hypertension[ICD10: I10] Diagnosis: Encounter for immunization[ICD10: Z23] Diagnosis: Other emphysema[ICD10: J43.8] Diagnosis: Testicular hypofunction[ICD10: E29.1] Lisa Pruitt MD, [facility] CPT-4: 38930 10/19/2017 ([id number]) [id number] EST. PATIENT, LEVEL IV Diagnosis: Type 2 diabetes mellitus without complications[ICD10: E11.9] Diagnosis: Essential (primary) hypertension[ICD10: I10] Diagnosis: Male erectile disorder[ICD10: F52.21] Diagnosis: Testicular hypofunction[ICD10: E29.1] Lisa Pruitt MD, [facility] CPT-4: 74487 06/11/2017 ([id number]) 53443 EST. PATIENT, LEVEL IV Diagnosis: Type 2 diabetes mellitus without complications[ICD10: E11.9] Diagnosis: Cough[ICD10: R05] Diagnosis: Other emphysema[ICD10: J43.8] Diagnosis: Male erectile disorder[ICD10: F52.21] Lisa Pruitt MD, [facility] CPT-4: 17113 02/23/2017 ([id number]) OFFICE VISIT, NEW - LEVEL 4 Diagnosis: Encounter for immunization[ICD10: Z23] Diagnosis: Type 2 diabetes mellitus without complications[ICD10: E11.9] Diagnosis: Essential (primary) hypertension[ICD10: I10] Diagnosis: Other emphysema[ICD10: J43.8] Diagnosis: Dependence on supplemental oxygen[ICD10: Z99.81] Diagnosis: Mixed hyperlipidemia[ICD10: E78.2] [facility] CPT- 4: 59379 11/17/2016 Plan of Care Planned Activity Notes Codes Status Date Care Plan: Referral Order SNOMED-CT : 312928123 Pending 12/17/2017 Visit Plan: BPH - pt [...] his Emphysema 10/19/2017 Appointment: Lisa Pruitt WPtel: [address] [place], [place] [id number] (15 min) Moderate 10/19/2017 Patient Education: Patient [...] prn viagra. 02/23/2017 [facility] [phone] [phone] ([facility]) Moderate 02/23/2017 Patient Education: Patient [...] Flu shot 11/17/2016 Appointment: Lisa Pruitt WPtel: [address] [place], [place] [phone] New Patient 11/17/2016 Patient Education: Patient Medication Summary Completed 11/17/2016 Patient Education: Obesity Completed 11/17/2016 [facility] Boog[facility] [phone] [phone] Ref[facility] App[facility]ment Confirmed Instructions Comment . [...]
--- OUTSIDE RECORDS SUMMARY | 2018-07-14 23:28 | XMS REPORT | CCD ---
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 Name Role Phone PP Unavailable CCM Unavailable Summary Purpose Interface Exchange Insurance Providers Payer name Policy type / Coverage type Covered republican ID Effective Begin Date Effective End Date WPS Medicare Part B Medicare Part B [id number] 2017 Unknown AARP Medicare Part B [id number] 2017 Unknown Family history Mother Diagnosis Age [...] Unknown 2 11/17/2016 Employment Unknown Retired from [employer] 11/17/[address]: 2007992 Former smoker 11/17/2016 Alcohol history Unknown occasionally drinks alcohol 11/17/2016 Frequency of drinks SNOMED CT: 286864513 Drinks rarely 1 in 3 or 4 months 11/17/2016 Has the patient ever used illegal drugs? Unknown Has never used illegal drugs 11/17/2016 Allergies, Adverse Reactions, Alerts Substance Reaction Codes Entered Date Inactivated Date Status Shellfish anaphylaxis Unknown 11/17/2016 No Inactive Date Active demerol nausea, RxNorm: 756904 11/17/2016 No Inactive Date Active Past Medical [...] Fill Instructions Cipro 500 mg tablet RxNorm: 270131 1 Tablet(s) PO BID 12/17/2017 12/26/2017 Active Cipro 500 mg tablet RxNorm: 598307 1 Tablet(s) PO BID 12/16/2017 12/16/2017 Inactive Singulair 10 mg tablet RxNorm: 794324 1 tab(s) PO qPM 11/26/2017 No Stop Date Active tramadol 50 mg tablet RxNorm: 015957 1-2 Tablet(s) PO QID as needed for pain 11/10/2017 01/08/2018 Active Symbicort 160 mcg-4.5 mcg/actuation HFA aerosol inhaler RxNorm: 3606207 2 Puff(s) INH BID 11/10/2017 01/08/2018 Active testosterone cypionate 200 mg/mL intramuscular oil RxNorm: 222864 2.25 Milliliter(s) IM [id number] 11/04/2017 07/01/2018 Active metoprolol tartrate 50 mg tablet RxNorm: 906069 1 Tablet(s) PO BID 10/19/2017 No Stop Date Active gemfibrozil 600 mg tablet RxNorm: 886367 1 Tablet(s) PO BID 10/16/2017 10/10/2018 Active sildenafil (antihypertensive) 20 mg tablet RxNorm: 284877 TAKE 2&1/2 TABLETS BY MOUTH DIRECTED 10/02/2017 02/22/2018 Active Generic For:REVATIO 20 MG TABLET N O T I C E PRESCRIPTION PREVIOUSLY AUTHORIZED BY DOCTOR:WESLEY NINO omeprazole 40 mg capsule,delayed release RxNorm: 346690 1 cap(s) PO Daily 09/09/2017 No Stop Date Active tamsulosin 0.4 mg capsule RxNorm: 274175 TAKE 1 CAPSULE BY MOUTH DAILY NEEDED 09/09/2017 09/03/2018 Active Generic For:FLOMAX 0.4 MG CAPSULE SA 09/07/2017 12:43:43 PM 09/09/2017 1:54:53 PM lisinopril 20 mg tablet RxNorm: 709640 1 tab(s) PO BID 09/09/2017 No Stop Date Active Vitamin D2 50,000 unit capsule RxNorm: 2228032 1 Capsule(s) PO QW 09/09/2017 12/01/2017 Inactive tramadol 50 mg tablet RxNorm: 955863 1-2 Tablet(s) PO QID as needed for pain 09/07/2017 11/04/2017 Inactive tramadol 50 mg tablet RxNorm: 372183 1-2 Tablet(s) PO QID 08/14/2017 11/09/2017 Inactive testosterone cypionate 200 mg/mL intramuscular oil RxNorm: 211707 2 Milliliter(s) IM [id number] 07/29/2017 11/03/2017 Inactive tramadol 50 mg tablet RxNorm: 131914 1-2 Tablet(s) PO QID as needed for pain 06/08/2017 08/05/2017 Inactive testosterone cypionate 200 mg/mL intramuscular oil RxNorm: 812580 2.25 Milliliter(s) IM [id number] 06/08/2017 07/28/2017 Inactive gemfibrozil 600 mg tablet RxNorm: 466759 1 Tablet(s) PO BID 05/20/2017 05/19/2017 Inactive gemfibrozil 600 mg tablet RxNorm: 544333 1 Tablet(s) PO BID 05/20/2017 10/15/2017 Inactive Vitamin D2 50,000 unit capsule RxNorm: 8561951 1 Capsule(s) PO QW 04/29/2017 07/21/2017 Inactive Vitamin D2 50,000 unit capsule RxNorm: 568679 1 Capsule(s) PO QW 04/29/2017 04/28/2017 Inactive diltiazem ER 300 mg tablet,extended release 24 hr RxNorm: 088242 1 Tablet(s) PO daily 04/10/2017 01/04/2018 Active testosterone cypionate 200 mg/mL intramuscular oil RxNorm: 533789 300 Milligram(s) IM monthly 04/10/2017 No Stop Date Active multivitamin tablet RxNorm: 1 Tablet(s) PO daily No Start Date Active ProAir HFA 90 mcg/actuation aerosol inhaler RxNorm: 195163 2 Puff(s) INH QID No Start Date Active pravastatin 20 mg tablet RxNorm: 962546 1 Tablet(s) PO daily No Start Date Active Eliquis 5 mg tablet RxNorm: 7631676 1 Tablet(s) PO BID No Start Date Active Flonase Allergy Relief 50 mcg/actuation nasal spray,suspension RxNorm: 8931035 2 [place] NASAL daily No Start Date Active albuterol sulfate 2.5 mg/3 mL (0.083 %) solution for nebulization RxNorm: 358496 3 Milliliter(s) INH Q6 for wheezing No Start Date Active EpiPen 2-Marcelo 0.3 mg/0.3 mL injection, auto-injector RxNorm: 049730 0.3 Milliliter(s) IM PRN allergic reaction No Start Date Active Vitamin D3 2,000 unit tablet RxNorm: 023725 1 Tablet(s) PO daily No Start Date Active hydrocodone 10 mg-acetaminophen 325 mg tablet RxNorm: 135148 1 Tablet(s) PO Q4H No Start Date Active Spiriva Respimat 2.5 mcg/actuation solution for inhalation RxNorm: 2265456 2 Puff(s) INH daily No Start Date Active tramadol 50 mg tablet RxNorm: 637748 1 Tablet(s) PO Q4H No Start Date 08/13/2017 Inactive diltiazem ER 300 mg tablet,extended release 24 hr RxNorm: 894474 1 Tablet(s) PO daily No Start Date 04/09/2017 Inactive Singulair 10 mg tablet RxNorm: 732012 1 Tablet(s) PO daily No Start Date 11/25/2017 Inactive Zyrtec 10 mg tablet RxNorm: 8410612 1 Tablet(s) PO daily No Start Date 10/18/2017 Inactive sildenafil (antihypertensive) 20 mg tablet RxNorm: 585938 3 Tablet(s) PO as needed No Start Date 10/01/2017 Inactive metoprolol tartrate 25 mg tablet RxNorm: 088826 1 Tablet(s) PO BID No Start Date 10/18/2017 Inactive omeprazole 40 mg capsule,delayed release RxNorm: 867745 1 Capsule(s) PO daily No Start Date 09/08/2017 Inactive Symbicort 160 mcg-4.5 mcg/actuation HFA aerosol inhaler RxNorm: 8540366 2 Puff(s) INH BID No Start Date 11/09/2017 Inactive amiodarone 200 mg tablet RxNorm: 392033 1 Tablet(s) PO daily No Start Date 02/22/2017 Inactive tamsulosin 0.4 mg capsule RxNorm: 258410 1 Capsule(s) PO daily No Start Date 09/08/2017 Inactive lisinopril 20 mg tablet RxNorm: 085706 1 Tablet(s) PO BID No Start Date 09/08/2017 Inactive Fish Oil 300 mg-1,000 mg capsule RxNorm: 905192 2 Capsule(s) PO QAM and 1 Capsule PO QPM No Start Date 10/18/2017 Inactive testosterone cypionate 200 mg/mL intramuscular oil RxNorm: 879182 300 Milligram(s) IM monthly No Start Date [...] Observation Code Item Item Code Result Date Urinalysis Ord28 U-Color Yellow 12/16/2017 Urinalysis Ord28 [...] 90.5 fl 12/16/2017 Cbc With Differential Ord2 Stephens% 15.0 % 12/16/2017 Cbc With Differential Ord2 MCH 30.7 pg 12/16/2017 Cbc With Differential Ord2 Eos% 1.1 % 12/16/2017 Cbc With Differential Ord2 MCHC 33.9 pg 12/16/2017 Cbc With Differential Ord2 PLT 194 K/ul 12/16/2017 Cbc With Differential Ord2 Baso% 0.5 % 12/16/2017 Cbc With Differential Ord2 Neut ABS# 3.76 K/ul 12/16/2017 Cbc With Differential Ord2 RDW 15.3 % 12/16/2017 Cbc With Differential Ord2 Lymph ABS# 1.42 K/ul 12/16/2017 Cbc With Differential Ord2 Stephens ABS# 0.9 K/ul 12/16/2017 Cbc With Differential [...] 30.1 pg 07/22/2017 Cbc With Differential Ord2 Stephens% 14.5 % 07/22/2017 Cbc With Differential Ord2 [...] 1.41 K/ul 07/22/2017 Cbc With Differential Ord2 Stephens ABS# 1.0 K/ul 07/22/2017 Cbc With Differential Ord2 Eos ABS# 0.1 K/ul 07/22/2017 Cbc With Differential Ord2 Baso ABS# 0.0 K/ul 07/22/2017 Testosterone Zgr410 Testo 1132.5 ng/dL 07/22/2017 Cbc With Differential [...] 28.6 pg 05/19/2017 Cbc With Differential Ord2 Stephens% 13.9 % 05/19/2017 Cbc With Differential Ord2 [...] 1.20 K/ul 05/19/2017 Cbc With Differential Ord2 Stephens ABS# 0.9 K/ul 05/19/2017 Cbc With Differential Ord2 Eos ABS# 0.1 K/ul 05/19/2017 Cbc With Differential Ord2 Baso ABS# 0.0 K/ul 05/19/2017 Comp Metabolic Bqs050 NA 136 mEq/L 11/18/2016 Comp Metabolic Mvn630 K 4.2 mEq/L 11/18/2016 Comp Metabolic Mfd645 CL 106 mEq/L 11/18/2016 Comp Metabolic Npi712 CO2 21.0 mEq/L 11/18/2016 Comp Metabolic Vcz027 ANION GAP 13 11/18/2016 Comp Metabolic Bxm275 GLUCOSE 96 mg/dL 11/18/2016 Comp Metabolic Oyc148 Creat 1.0 mg/dL 11/18/2016 Comp Metabolic Ttv298 eGFR 77 ml/min/1.73m2 11/18/2016 Comp Metabolic Bmb234 BUN 13 mg/dL 11/18/2016 Comp Metabolic Jra015 B/C Ratio 13.0 Ratio 11/18/2016 Comp Metabolic Bla463 CALCIUM 8.9 mg/dL 11/18/2016 Comp Metabolic Xho042 ALK PHOS 88 U/L 11/18/2016 Comp Metabolic Mie770 AST(SGOT) 17 U/L 11/18/2016 Comp Metabolic Vks766 ALT(SGPT) 16 U/L 11/18/2016 Comp Metabolic Pwg277 BILI T 0.9 mg/dL 11/18/2016 Comp Metabolic Nbh197 ALBUMIN 3.9 g/dL 11/18/2016 Comp Metabolic Fab239 TPRO 6.4 g/dL 11/18/2016 Comp Metabolic Vif612 GLOB 2.5 g/dL 11/18/2016 Comp Metabolic Xaw283 A/G Ratio 1.6 Ratio 11/18/2016 Comp Metabolic Hix882 Osmo 272 mOsmo 11/18/2016 %Hba1C Bui964 % HbA1c 25149- 6 5.7 % 11/18/2016 %Hba1C Ply126 Gluc Ave 117 mg/dL 11/18/2016 Cbc With [...] 14.4 % 11/18/2016 Cbc With Differential Ord2 Stephens% 14.0 % 11/18/2016 Cbc With Differential Ord2 [...] 1.07 K/ul 11/18/2016 Cbc With Differential Ord2 Stephens ABS# 1.0 K/ul 11/18/2016 Cbc With Differential [...] FLU VACC PRSV FREE INC ANTIG CPT-4: 35592 10/19/2017 ADMIN PNEUMOCOCCAL VACCINE SNOMED CT: 46451474 CPT-4: G0009 11/19/2016 PNEUMOCOCCAL VACC [address]: 22257849 CPT-4: 25607 11/19/2016 ADMIN INFLUENZA VIRUS VAC CPT-4: G0008 11/17/2016 FLU VACC PRSV FREE INC ANTIG CPT-4: 33875 11/17/2016 Vital Signs Date Vital 12/16/2017 Blood Pressure 1: 130/74 Code: 8480-6 BMI: 32.4 Code: 89855-2 Heart Rate 1: 58 bpm Height: 5'11" SpO2: 95% Weight: 232 lbs 10/19/2017 Blood Pressure 1: 132/70 Code: 8480-6 BMI: 33.1 Code: 85678-6 Heart Rate 1: 54 bpm Height: 5'11" SpO2: 97% Weight: 237 lbs 06/11/2017 Blood Pressure 1: 126/74 Code: 8480-6 BMI: 33.8 Code: 21140-7 Heart Rate 1: 60 bpm Height: 5'11" SpO2: 94% Weight: 242 lbs 8 oz 02/23/2017 Blood Pressure 1: 138/82 Code: 8480-6 BMI: 33.8 Code: 94464-8 Heart Rate 1: 65 bpm Height: 5'11" SpO2: 94% Weight: 242 lbs 11/17/2016 Blood Pressure 1: 132/70 Code: 8480-6 BMI: 33.6 Code: 32670-3 Heart Rate 1: 57 bpm Height: 5'11" [...] Diagnosis: Testicular hypofunction[ICD10: E29.1] Tori Pruitt MD, [facility] CPT- 4: 86735 12/16/2017 ([id number]) 45131 EST. PATIENT, LEVEL IV Diagnosis: Type 2 diabetes mellitus without complications[ICD10: E11.9] Diagnosis: Essential (primary) hypertension[ICD10: I10] Diagnosis: Encounter for immunization[ICD10: Z23] Diagnosis: Other emphysema[ICD10: J43.8] Diagnosis: Testicular hypofunction[ICD10: E29.1] Lisa Pruitt MD, [facility] CPT-4: 07363 10/19/2017 ([id number]) 23436 EST. PATIENT, LEVEL IV Diagnosis: Type 2 diabetes mellitus without complications[ICD10: E11.9] Diagnosis: Essential (primary) hypertension[ICD10: I10] Diagnosis: Male erectile disorder[ICD10: F52.21] Diagnosis: Testicular hypofunction[ICD10: E29.1] Lisa Pruitt MD, [facility] CPT-4: 98189 06/11/2017 ([id number]) [id number] EST. PATIENT, LEVEL IV Diagnosis: Type 2 diabetes mellitus without complications[ICD10: E11.9] Diagnosis: Cough[ICD10: R05] Diagnosis: Other emphysema[ICD10: J43.8] Diagnosis: Male erectile disorder[ICD10: F52.21] Lisa Pruitt MD, [facility] CPT-4: 02806 02/23/2017 ([id number]) OFFICE VISIT, NEW - LEVEL 4 Diagnosis: Encounter for immunization[ICD10: Z23] Diagnosis: Type 2 diabetes mellitus without complications[ICD10: E11.9] Diagnosis: Essential (primary) hypertension[ICD10: I10] Diagnosis: Other emphysema[ICD10: J43.8] Diagnosis: Dependence on supplemental oxygen[ICD10: Z99.81] Diagnosis: Mixed hyperlipidemia[ICD10: E78.2] Lisa Pruitt MD, [facility] CPT- 4: 02703 11/17/2016 Plan of Care Planned Activity Notes Codes Status Date Care Plan: Referral Order SNOMED-CT : [id number] Pending 12/17/2017 Patient Education: Patient Medication Summary Completed 12/16/2017 Appointment: Lisa Pruitt WPtel: [phone] [facility] (15 min) Moderate 10/19/2017 Patient Education: Patient Medication Summary Completed 10/19/2017 Patient Education: Patient Medication Summary Completed 07/22/2017 Appointment: Lisa Pruitt WPtel: [phone] [facility] (15 min) Moderate 06/11/2017 Patient Education: Patient Medication Summary Completed 06/11/2017 Patient Education: Patient Medication Summary Completed 05/18/2017 [facility]ment: [facility] [phone] [facility] (15 min) Moderate 02/23/2017 Patient Education: Patient Medication Summary Completed 02/23/2017 Appointment: Injection 11/19/2016 Patient Education: Patient Medication Summary Completed 11/19/2016 Appointment: [facility] [phone] [facility] [place] New Patient 11/17/2016 Patient Education: Patient Medication Summary Completed 11/17/2016 Patient Education: Obesity Completed 11/17/2016 [facility] [phone] [facility] [place] Referral Appointment Confirmed Instructions No Instructions
--- OUTSIDE RECORDS SUMMARY | 2018-07-14 23:29 | XMS REPORT | CCD ---
Author Author Lisa Pruitt Organization [facility] Address [address] [place] [address] Phone Care Team Providers Care Psychiatric Secretary Name Role Phone PP Unavailable CCM Unavailable Summary Purpose Interface Exchange Insurance Providers Payer name Policy type / Coverage type Covered alliance party ID Effective Begin Date Effective End Date WPS Medicare Part B Medicare Part B [id number] 2017 Unknown AARP Medicare Part B [id number] 2017 Unknown Family history Mother Diagnosis Age [...] Unknown 4 11/17/2016 Employment Unknown Retired from [employer] 11/17/[address]: 2744342 Former smoker 11/17/2016 Alcohol history Unknown occasionally drinks alcohol 11/17/2016 Frequency of drinks SNOMED CT: 431562343 Drinks rarely 1 in 3 or 4 months 11/17/2016 Has the patient ever used illegal drugs? Unknown Has never used illegal drugs 11/17/2016 Allergies, Adverse Reactions, Alerts Substance Reaction Codes Entered Date Inactivated Date Status Shellfish anaphylaxis Unknown 11/17/2016 No Inactive Date Active demerol nausea, RxNorm: 569890 11/17/2016 No Inactive Date Active Past Medical [...] Fill Instructions Cipro 500 mg tablet RxNorm: 913181 1 Tablet(s) PO BID 12/16/2017 12/25/2017 Active Singulair 10 mg tablet RxNorm: 338749 1 tab(s) PO qPM 11/26/2017 No Stop Date Active tramadol 50 mg tablet RxNorm: 739484 1-2 Tablet(s) PO QID as needed for pain 11/10/2017 01/08/2018 Active Symbicort 160 mcg-4.5 mcg/actuation HFA aerosol inhaler RxNorm: 1343861 2 Puff(s) INH BID 11/10/2017 01/08/2018 Active testosterone cypionate 200 mg/mL intramuscular oil RxNorm: 806817 2.25 Milliliter(s) IM I2braxf 11/04/2017 07/01/2018 Active metoprolol tartrate 50 mg tablet RxNorm: 949207 1 Tablet(s) PO BID 10/19/2017 No Stop Date Active gemfibrozil 600 mg tablet RxNorm: 342063 1 Tablet(s) PO BID 10/16/2017 10/10/2018 Active sildenafil (antihypertensive) 20 mg tablet RxNorm: 047773 TAKE 2&1/2 TABLETS BY MOUTH DIRECTED 10/02/2017 02/22/2018 Active Generic For:REVATIO 20 MG TABLET N O T I C E PRESCRIPTION PREVIOUSLY AUTHORIZED BY DOCTOR:WESLEY NINO omeprazole 40 mg capsule,delayed release RxNorm: 138665 1 cap(s) PO Daily 09/09/2017 No Stop Date Active tamsulosin 0.4 mg capsule RxNorm: 000055 TAKE 1 CAPSULE BY MOUTH DAILY NEEDED 09/09/2017 09/03/2018 Active Generic For:FLOMAX 0.4 MG CAPSULE SA 09/07/2017 12:43:43 PM 09/09/2017 1:54:53 PM lisinopril 20 mg tablet RxNorm: 143772 1 tab(s) PO BID 09/09/2017 No Stop Date Active Vitamin D2 50,000 unit capsule RxNorm: 1175572 1 Capsule(s) PO QW 09/09/2017 12/01/2017 Inactive tramadol 50 mg tablet RxNorm: 041222 1-2 Tablet(s) PO QID as needed for pain 09/07/2017 11/04/2017 Inactive tramadol 50 mg tablet RxNorm: 961843 1-2 Tablet(s) PO QID 08/14/2017 11/09/2017 Inactive testosterone cypionate 200 mg/mL intramuscular oil RxNorm: 831464 2 Milliliter(s) IM O1upofm 07/29/2017 11/03/2017 Inactive tramadol 50 mg tablet RxNorm: 300444 1-2 Tablet(s) PO QID as needed for pain 06/08/2017 08/05/2017 Inactive testosterone cypionate 200 mg/mL intramuscular oil RxNorm: 377777 2.25 Milliliter(s) IM E7belyg 06/08/2017 07/28/2017 Inactive gemfibrozil 600 mg tablet RxNorm: 965623 1 Tablet(s) PO BID 05/20/2017 05/19/2017 Inactive gemfibrozil 600 mg tablet RxNorm: 092890 1 Tablet(s) PO BID 05/20/2017 10/15/2017 Inactive Vitamin D2 50,000 unit capsule RxNorm: 6405033 1 Capsule(s) PO QW 04/29/2017 07/21/2017 Inactive Vitamin D2 50,000 unit capsule RxNorm: 926401 1 Capsule(s) PO QW 04/29/2017 04/28/2017 Inactive diltiazem ER 300 mg tablet,extended release 24 hr RxNorm: 467736 1 Tablet(s) PO daily 04/10/2017 01/04/2018 Active testosterone cypionate 200 mg/mL intramuscular oil RxNorm: 434119 300 Milligram(s) IM monthly 04/10/2017 No Stop Date Active multivitamin tablet RxNorm: 1 Tablet(s) PO daily No Start Date Active ProAir HFA 90 mcg/actuation aerosol inhaler RxNorm: 332515 2 Puff(s) INH QID No Start Date Active pravastatin 20 mg tablet RxNorm: 093926 1 Tablet(s) PO daily No Start Date Active Eliquis 5 mg tablet RxNorm: 4826036 1 Tablet(s) PO BID No Start Date Active Flonase Allergy Relief 50 mcg/actuation nasal spray,suspension RxNorm: 0315226 2 [place] NASAL daily No Start Date Active albuterol sulfate 2.5 mg/3 mL (0.083 %) solution for nebulization RxNorm: 590323 3 Milliliter(s) INH Q6 for wheezing No Start Date Active EpiPen 2-Marcelo 0.3 mg/0.3 mL injection, auto-injector RxNorm: 081923 0.3 Milliliter(s) IM PRN allergic reaction No Start Date Active Vitamin D3 2,000 unit tablet RxNorm: 290220 1 Tablet(s) PO daily No Start Date Active hydrocodone 10 mg-acetaminophen 325 mg tablet RxNorm: 477085 1 Tablet(s) PO Q4H No Start Date Active Spiriva Respimat 2.5 mcg/actuation solution for inhalation RxNorm: 9325738 2 Puff(s) INH daily No Start Date Active tramadol 50 mg tablet RxNorm: 024255 1 Tablet(s) PO Q4H No Start Date 08/13/2017 Inactive diltiazem ER 300 mg tablet,extended release 24 hr RxNorm: 326170 1 Tablet(s) PO daily No Start Date 04/09/2017 Inactive Singulair 10 mg tablet RxNorm: 164128 1 Tablet(s) PO daily No Start Date 11/25/2017 Inactive Zyrtec 10 mg tablet RxNorm: 3566593 1 Tablet(s) PO daily No Start Date 10/18/2017 Inactive sildenafil (antihypertensive) 20 mg tablet RxNorm: 430910 3 Tablet(s) PO as needed No Start Date 10/01/2017 Inactive metoprolol tartrate 25 mg tablet RxNorm: 253114 1 Tablet(s) PO BID No Start Date 10/18/2017 Inactive omeprazole 40 mg capsule,delayed release RxNorm: 616220 1 Capsule(s) PO daily No Start Date 09/08/2017 Inactive Symbicort 160 mcg-4.5 mcg/actuation HFA aerosol inhaler RxNorm: 5540452 2 Puff(s) INH BID No Start Date 11/09/2017 Inactive amiodarone 200 mg tablet RxNorm: 786445 1 Tablet(s) PO daily No Start Date 02/22/2017 Inactive tamsulosin 0.4 mg capsule RxNorm: 607240 1 Capsule(s) PO daily No Start Date 09/08/2017 Inactive lisinopril 20 mg tablet RxNorm: 177663 1 Tablet(s) PO BID No Start Date 09/08/2017 Inactive Fish Oil 300 mg-1,000 mg capsule RxNorm: 358591 2 Capsule(s) PO QAM and 1 Capsule PO QPM No Start Date 10/18/2017 Inactive testosterone cypionate 200 mg/mL intramuscular oil RxNorm: 134587 300 Milligram(s) IM monthly No Start Date [...] 90.5 fl 12/16/2017 Cbc With Differential Ord2 Pierce% 15.0 % 12/16/2017 Cbc With Differential Ord2 [...] 1.42 K/ul 12/16/2017 Cbc With Differential Ord2 Pierce ABS# 0.9 K/ul 12/16/2017 Cbc With Differential [...] 30.1 pg 07/22/2017 Cbc With Differential Ord2 Pierce% 14.5 % 07/22/2017 Cbc With Differential Ord2 [...] 1.41 K/ul 07/22/2017 Cbc With Differential Ord2 Pierce ABS# 1.0 K/ul 07/22/2017 Cbc With Differential Ord2 Eos ABS# 0.1 K/ul 07/22/2017 Cbc With Differential Ord2 Baso ABS# 0.0 K/ul 07/22/2017 Testosterone Azb961 Testo 1132.5 ng/dL 07/22/2017 Cbc With Differential [...] 28.6 pg 05/19/2017 Cbc With Differential Ord2 Pierce% 13.9 % 05/19/2017 Cbc With Differential Ord2 [...] 1.20 K/ul 05/19/2017 Cbc With Differential Ord2 Pierce ABS# 0.9 K/ul 05/19/2017 Cbc With Differential Ord2 Eos ABS# 0.1 K/ul 05/19/2017 Cbc With Differential Ord2 Baso ABS# 0.0 K/ul 05/19/2017 Comp Metabolic Gze376 NA 136 mEq/L 11/18/2016 Comp Metabolic Akh455 K 4.2 mEq/L 11/18/2016 Comp Metabolic Yaj357 CL 106 mEq/L 11/18/2016 Comp Metabolic Aov379 CO2 21.0 mEq/L 11/18/2016 Comp Metabolic Xln051 ANION GAP 13 11/18/2016 Comp Metabolic Quw166 GLUCOSE 96 mg/dL 11/18/2016 Comp Metabolic Ffe147 Creat 1.0 mg/dL 11/18/2016 Comp Metabolic Gjl256 eGFR 77 ml/min/1.73m2 11/18/2016 Comp Metabolic Asr965 BUN 13 mg/dL 11/18/2016 Comp Metabolic Chj896 B/C Ratio 13.0 Ratio 11/18/2016 Comp Metabolic Fya407 CALCIUM 8.9 mg/dL 11/18/2016 Comp Metabolic Xuq435 ALK PHOS 88 U/L 11/18/2016 Comp Metabolic Bpv383 AST(SGOT) 17 U/L 11/18/2016 Comp Metabolic Xcm202 ALT(SGPT) 16 U/L 11/18/2016 Comp Metabolic Che845 BILI T 0.9 mg/dL 11/18/2016 Comp Metabolic Ffu646 ALBUMIN 3.9 g/dL 11/18/2016 Comp Metabolic Dhm762 TPRO 6.4 g/dL 11/18/2016 Comp Metabolic Lhw539 GLOB 2.5 g/dL 11/18/2016 Comp Metabolic Qkd363 A/G Ratio 1.6 Ratio 11/18/2016 Comp Metabolic Uer175 Osmo 272 mOsmo 11/18/2016 %Hba1C Msh615 % HbA1c 21484- 6 5.7 % 11/18/2016 %Hba1C Fmm116 Gluc Ave 117 mg/dL 11/18/2016 Cbc With [...] 14.4 % 11/18/2016 Cbc With Differential Ord2 Pierce% 14.0 % 11/18/2016 Cbc With Differential Ord2 [...] 1.07 K/ul 11/18/2016 Cbc With Differential Ord2 [place] ABS# 1.0 K/ul 11/18/2016 Cbc With Differential [...] lips 10/19/2017 None Full Exam - General 1995 Ears/Nose/Throat lips/teeth/gingiva Overall: normal dentition 10/19/2017 None Full Exam - General 1994 Ears/Nose/Throat oral cavity/pharynx/larynx Overall: oral mucosa clear 10/19/2017 None Full Exam - General 1995 Ears/Nose/Throat oral cavity/pharynx/larynx Overall: oropharyngeal mucosa clear 10/19/2017 None Full Exam - General 1995 Ears/Nose/Throat oral cavity/pharynx/larynx Overall: hypopharynx benign 10/19/2017 [...] FLU VACC PRSV FREE INC ANTIG CPT-4: 40043 10/19/2017 ADMIN PNEUMOCOCCAL VACCINE SNOMED CT: 99782103 CPT-4: G0009 11/19/2016 PNEUMOCOCCAL VACC [address]: 10950595 CPT-4: 54402 11/19/2016 ADMIN INFLUENZA VIRUS VAC CPT-4: G0008 11/17/2016 FLU VACC PRSV FREE INC ANTIG CPT-4: 42737 11/17/2016 Vital Signs Date Vital 12/16/2017 Blood Pressure 1: 130/74 Code: 8480-6 BMI: 32.4 Code: 17894-9 Heart Rate 1: 58 bpm Height: 5'11" SpO2: 95% Weight: 232 lbs 10/19/2017 Blood Pressure 1: 132/70 Code: 8480-6 BMI: 33.1 Code: 37488-6 Heart Rate 1: 54 bpm Height: 5'11" SpO2: 97% Weight: 237 lbs 06/11/2017 Blood Pressure 1: 126/74 Code: 8480-6 BMI: 33.8 Code: 79629-9 Heart Rate 1: 60 bpm Height: 5'11" SpO2: 94% Weight: 242 lbs 8 oz 02/23/2017 Blood Pressure 1: 138/82 Code: 8480-6 BMI: 33.8 Code: 25995-7 Heart Rate 1: 65 bpm Height: 5'11" SpO2: 94% Weight: 242 lbs 11/17/2016 Blood Pressure 1: 132/70 Code: 8480-6 BMI: 33.6 Code: 17734-3 Heart Rate 1: 57 bpm Height: 5'11" [...] Diagnosis: Testicular hypofunction[ICD10: E29.1] Tori Pruitt MD, [facility] CPT- 4: 07915 12/16/2017 ([id number]) [id number] EST. PATIENT, LEVEL IV Diagnosis: Type 2 diabetes mellitus without complications[ICD10: E11.9] Diagnosis: Essential (primary) hypertension[ICD10: I10] Diagnosis: Encounter for immunization[ICD10: Z23] Diagnosis: Other emphysema[ICD10: J43.8] Diagnosis: Testicular hypofunction[ICD10: E29.1] Lisa Pruitt MD, [facility] CPT-4: 26916 10/19/2017 ([id number]) 25207 EST. PATIENT, LEVEL IV Diagnosis: Type 2 diabetes mellitus without complications[ICD10: E11.9] Diagnosis: Essential (primary) hypertension[ICD10: I10] Diagnosis: Male erectile disorder[ICD10: F52.21] Diagnosis: Testicular hypofunction[ICD10: E29.1] Lisa Pruitt MD, [facility] CPT-4: 02574 06/11/2017 ([id number]) [id number] EST. PATIENT, LEVEL IV Diagnosis: Type 2 diabetes mellitus without complications[ICD10: E11.9] Diagnosis: Cough[ICD10: R05] Diagnosis: Other emphysema[ICD10: J43.8] Diagnosis: Male erectile disorder[ICD10: F52.21] Lisa Pruitt MD, [facility] CPT-4: 34410 02/23/2017 ([id number]) OFFICE VISIT, NEW - LEVEL 4 Diagnosis: Encounter for immunization[ICD10: Z23] Diagnosis: Type 2 diabetes mellitus without complications[ICD10: E11.9] Diagnosis: Essential (primary) hypertension[ICD10: I10] Diagnosis: Other emphysema[ICD10: J43.8] Diagnosis: Dependence on supplemental oxygen[ICD10: Z99.81] Diagnosis: Mixed hyperlipidemia[ICD10: E78.2] [facility] CPT- 4: 41707 11/17/2016 Plan of Care Planned Activity Notes Codes Status Date Care Plan: Referral Order SNOMED-CT : 586203749 Pending 12/17/2017 Patient Education: Patient Medication Summary Completed 12/16/2017 Appointment: Lisa Pruitt WPtel: [facility] (15 min) Moderate 10/19/2017 Patient Education: Patient Medication Summary Completed 10/19/2017 Patient Education: Patient Medication Summary Completed 07/22/2017 Appointment: Lisa Pruitt WPtel: [facility] (15 min) Moderate 06/11/2017 Patient Education: Patient Medication Summary Completed 06/11/2017 Patient Education: Patient Medication Summary Completed 05/18/2017 Appointment: Lisa Pruitt WPtel: [facility] (15 min) Moderate 02/23/2017 Patient Education: Patient Medication Summary Completed 02/23/2017 Appointment: Injection 11/19/2016 Patient Education: Patient Medication Summary Completed 11/19/2016 Appointment: Lisa Pruitt WPtel: [facility] New Patient 11/17/2016 Patient Education: Patient Medication Summary Completed 11/17/2016 Patient Education: Obesity Completed 11/17/2016 Referral: Boogie Warren WPtel: [id number] [facility] Referral Appointment Confirmed Instructions No Instructions
--- OUTSIDE RECORDS SUMMARY | 2018-07-14 23:30 | XMS REPORT | CCD ---
Author Author Lisa Pruitt Organization [facility] Address [address] [place] [address] Phone Care Team Providers Care Tester [employer]ocket [employer] Name Role Phone PP Unavailable CCM Unavailable Summary Purpose Interface Exchange Insurance Providers Payer name Policy type / Coverage type Covered green party ID Effective Begin Date Effective End Date WPS Medicare Part B Medicare Part B [id number] 2017 Unknown AARP Medicare Part B [id number] 2017 Unknown Family history Mother Diagnosis Age [...] Unknown 2 11/17/2016 Employment Unknown Retired from [employer] 11/17/[address]: 9890492 Former smoker 11/17/2016 Alcohol history Unknown occasionally drinks alcohol 11/17/2016 Frequency of drinks SNOMED CT: 668361778 Drinks rarely 1 in 3 or 4 months 11/17/2016 Has the patient ever used illegal drugs? Unknown Has never used illegal drugs 11/17/2016 Allergies, Adverse Reactions, Alerts Substance Reaction Codes Entered Date Inactivated Date Status Shellfish anaphylaxis Unknown 11/17/2016 No Inactive Date Active demerol nausea, RxNorm: 756153 11/17/2016 No Inactive Date Active Past Medical History Illness Codes Condition Status Onset Date Resolved Date Encounter for immunization ICD-9: V04.81 ICD-10: Z23 [...] Problems Condition Codes Effective Dates Condition Status Encounter for immunization ICD-9: V04.81 ICD-10: Z23 [...] Start Date Stop Date Status Fill Instructions Singulair 10 mg tablet RxNorm: 179628 1 tab(s) PO qPM 11/26/2017 No Stop Date Active tramadol 50 mg tablet RxNorm: 887212 1-2 Tablet(s) PO QID as needed for pain 11/10/2017 01/08/2018 Active Symbicort 160 mcg-4.5 mcg/actuation HFA aerosol inhaler RxNorm: 4623659 2 Puff(s) INH BID 11/10/2017 01/08/2018 Active testosterone cypionate 200 mg/mL intramuscular oil RxNorm: 274105 2.25 Milliliter(s) IM [id number] 11/04/2017 07/01/2018 Active metoprolol tartrate 50 mg tablet RxNorm: 600757 1 Tablet(s) PO BID 10/19/2017 No Stop Date Active gemfibrozil 600 mg tablet RxNorm: 223242 1 Tablet(s) PO BID 10/16/2017 10/10/2018 Active sildenafil (antihypertensive) 20 mg tablet RxNorm: 164740 TAKE 2&1/2 TABLETS BY MOUTH DIRECTED 10/02/2017 02/22/2018 Active Generic For:REVATIO 20 MG TABLET N O T I C E PRESCRIPTION PREVIOUSLY AUTHORIZED BY DOCTOR:WESLEY NINO omeprazole 40 mg capsule,delayed release RxNorm: 180854 1 cap(s) PO Daily 09/09/2017 No Stop Date Active tamsulosin 0.4 mg capsule RxNorm: 209673 TAKE 1 CAPSULE BY MOUTH DAILY NEEDED 09/09/2017 09/03/2018 Active Generic For:FLOMAX 0.4 MG CAPSULE SA 09/07/2017 12:43:43 PM 09/09/2017 1:54:53 PM lisinopril 20 mg tablet RxNorm: 524931 1 tab(s) PO BID 09/09/2017 No Stop Date Active Vitamin D2 50,000 unit capsule RxNorm: 9938260 1 Capsule(s) PO QW 09/09/2017 12/01/2017 Inactive tramadol 50 mg tablet RxNorm: 071909 1-2 Tablet(s) PO QID as needed for pain 09/07/2017 11/04/2017 Inactive tramadol 50 mg tablet RxNorm: 549910 1-2 Tablet(s) PO QID 08/14/2017 11/09/2017 Inactive testosterone cypionate 200 mg/mL intramuscular oil RxNorm: 636183 2 Milliliter(s) IM [id number] 07/29/2017 11/03/2017 Inactive tramadol 50 mg tablet RxNorm: 856395 1-2 Tablet(s) PO QID as needed for pain 06/08/2017 08/05/2017 Inactive testosterone cypionate 200 mg/mL intramuscular oil RxNorm: 375974 2.25 Milliliter(s) IM [id number] 06/08/2017 07/28/2017 Inactive gemfibrozil 600 mg tablet RxNorm: 240231 1 Tablet(s) PO BID 05/20/2017 05/19/2017 Inactive gemfibrozil 600 mg tablet RxNorm: 281473 1 Tablet(s) PO BID 05/20/2017 10/15/2017 Inactive Vitamin D2 50,000 unit capsule RxNorm: 4316156 1 Capsule(s) PO QW 04/29/2017 07/21/2017 Inactive Vitamin D2 50,000 unit capsule RxNorm: 355075 1 Capsule(s) PO QW 04/29/2017 04/28/2017 Inactive diltiazem ER 300 mg tablet,extended release 24 hr RxNorm: 283362 1 Tablet(s) PO daily 04/10/2017 01/04/2018 Active testosterone cypionate 200 mg/mL intramuscular oil RxNorm: 213832 300 Milligram(s) IM monthly 04/10/2017 No Stop Date Active multivitamin tablet RxNorm: 1 Tablet(s) PO daily No Start Date Active ProAir HFA 90 mcg/actuation aerosol inhaler RxNorm: 114298 2 Puff(s) INH QID No Start Date Active pravastatin 20 mg tablet RxNorm: 329292 1 Tablet(s) PO daily No Start Date Active Eliquis 5 mg tablet RxNorm: 3810415 1 Tablet(s) PO BID No Start Date Active Flonase Allergy Relief 50 mcg/actuation nasal spray,suspension RxNorm: 7798642 2 [place] NASAL daily No Start Date Active albuterol sulfate 2.5 mg/3 mL (0.083 %) solution for nebulization RxNorm: 469470 3 Milliliter(s) INH Q6 for wheezing No Start Date Active EpiPen 2-Marcelo 0.3 mg/0.3 mL injection, auto-injector RxNorm: 432679 0.3 Milliliter(s) IM PRN allergic reaction No Start Date Active Vitamin D3 2,000 unit tablet RxNorm: 393879 1 Tablet(s) PO daily No Start Date Active hydrocodone 10 mg-acetaminophen 325 mg tablet RxNorm: 141111 1 Tablet(s) PO Q4H No Start Date Active Spiriva Respimat 2.5 mcg/actuation solution for inhalation RxNorm: 9633612 2 Puff(s) INH daily No Start Date Active tramadol 50 mg tablet RxNorm: 234800 1 Tablet(s) PO Q4H No Start Date 08/13/2017 Inactive diltiazem ER 300 mg tablet,extended release 24 hr RxNorm: 704266 1 Tablet(s) PO daily No Start Date 04/09/2017 Inactive Singulair 10 mg tablet RxNorm: 145302 1 Tablet(s) PO daily No Start Date 11/25/2017 Inactive Zyrtec 10 mg tablet RxNorm: 5643675 1 Tablet(s) PO daily No Start Date 10/18/2017 Inactive sildenafil (antihypertensive) 20 mg tablet RxNorm: 930536 3 Tablet(s) PO as needed No Start Date 10/01/2017 Inactive metoprolol tartrate 25 mg tablet RxNorm: 875331 1 Tablet(s) PO BID No Start Date 10/18/2017 Inactive omeprazole 40 mg capsule,delayed release RxNorm: 907649 1 Capsule(s) PO daily No Start Date 09/08/2017 Inactive Symbicort 160 mcg-4.5 mcg/actuation HFA aerosol inhaler RxNorm: 0826152 2 Puff(s) INH BID No Start Date 11/09/2017 Inactive amiodarone 200 mg tablet RxNorm: 250251 1 Tablet(s) PO daily No Start Date 02/22/2017 Inactive tamsulosin 0.4 mg capsule RxNorm: 136924 1 Capsule(s) PO daily No Start Date 09/08/2017 Inactive lisinopril 20 mg tablet RxNorm: 444174 1 Tablet(s) PO BID No Start Date 09/08/2017 Inactive Fish Oil 300 mg-1,000 mg capsule RxNorm: 253724 2 Capsule(s) PO QAM and 1 Capsule PO QPM No Start Date 10/18/2017 Inactive testosterone cypionate 200 mg/mL intramuscular oil RxNorm: 689100 300 Milligram(s) IM monthly No Start Date [...] for immunization ICD-10: Z23 ICD-9: V04.81 10/19/2017 Testicular hypofunction ICD-10: E29.1 ICD-9: 257.2 10/19/2017 Other emphysema ICD-10: J43.8 ICD-9: 492.8 [...] Reason For Visit Effective Dates Notes hypertension 10/19/2017 hypertension 06/11/2017 hypertension 02/23/2017 vaccination against pneumonia 11/19/2016 hypertension 11/17/2016 Results Observation Observation Code Item Item Code Result Date Cbc With Differential Ord2 WBC 6.21 K/ul 12/16/2017 Cbc With Differential Ord2 RBC 6.09 M/ul 12/16/2017 Cbc With Differential Ord2 HGB 18.7 g/dl 12/16/2017 Cbc With Differential Ord2 HCT 55.1 % 12/16/2017 Cbc With Differential Ord2 Neut% 60.5 % 12/16/2017 Cbc With Differential Ord2 MCV 90.5 fl 12/16/2017 Cbc With Differential Ord2 Lymph% 22.9 % 12/16/2017 Cbc With Differential Ord2 Coffey% 15.0 % 12/16/2017 Cbc With Differential Ord2 MCH 30.7 pg 12/16/2017 Cbc With Differential Ord2 Eos% 1.1 % 12/16/2017 Cbc With Differential Ord2 MCHC 33.9 pg 12/16/2017 Cbc With Differential Ord2 Baso% 0.5 % 12/16/2017 Cbc With Differential Ord2 PLT 194 K/ul 12/16/2017 Cbc With Differential Ord2 Neut ABS# 3.76 K/ul 12/16/2017 Cbc With Differential Ord2 RDW 15.3 % 12/16/2017 Cbc With Differential Ord2 Lymph ABS# 1.42 K/ul 12/16/2017 Cbc With Differential Ord2 [place]offey ABS# 0.9 K/ul 12/16/2017 Cbc With Differential [...] 30.1 pg 07/22/2017 Cbc With Differential Ord2 [place]y% 14.5 % 07/22/2017 Cbc With Differential Ord2 [...] 1.41 K/ul 07/22/2017 Cbc With Differential Ord2 [place] ABS# 1.0 K/ul 07/22/2017 Cbc With Differential Ord2 Eos ABS# 0.1 K/ul 07/22/2017 Cbc With Differential Ord2 Baso ABS# 0.0 K/ul 07/22/2017 Testosterone Tpx276 Testo 1132.5 ng/dL 07/22/2017 Cbc With Differential Ord2 WBC 6.55 K/ul 05/19/2017 Cbc With Differential Ord2 RBC 5.90 M/ul 05/19/2017 Cbc With Differential Ord2 HGB 16.9 g/dl 05/19/2017 Cbc With Differential Ord2 Neut% 66.3 % 05/19/2017 Cbc With Differential Ord2 HCT 51.4 % 05/19/2017 Cbc With Differential Ord2 MCV 87.1 fl 05/19/2017 Cbc With Differential Ord2 Lymph% 18.3 % 05/19/2017 Cbc With Differential Ord2 MCH 28.6 pg 05/19/2017 Cbc With Differential Ord2 Coffey% 13.9 % 05/19/2017 Cbc With Differential Ord2 [...] 1.20 K/ul 05/19/2017 Cbc With Differential Ord2 [place] ABS# 0.9 K/ul 05/19/2017 Cbc With Differential Ord2 Eos ABS# 0.1 K/ul 05/19/2017 Cbc With Differential Ord2 Baso ABS# 0.0 K/ul 05/19/2017 Comp Metabolic Kgd993 NA 136 mEq/L 11/18/2016 Comp Metabolic Igl435 K 4.2 mEq/L 11/18/2016 Comp Metabolic Zoh506 CL 106 mEq/L 11/18/2016 Comp Metabolic Zsx736 CO2 21.0 mEq/L 11/18/2016 Comp Metabolic Ffs983 ANION GAP 13 11/18/2016 Comp Metabolic Uhj596 GLUCOSE 96 mg/dL 11/18/2016 Comp Metabolic Vbc820 Creat 1.0 mg/dL 11/18/2016 Comp Metabolic Xmu777 eGFR 77 ml/min/1.73m2 11/18/2016 Comp Metabolic Pqk142 BUN 13 mg/dL 11/18/2016 Comp Metabolic Tpb377 B/C Ratio 13.0 Ratio 11/18/2016 Comp Metabolic Fho487 CALCIUM 8.9 mg/dL 11/18/2016 Comp Metabolic Exp581 ALK PHOS 88 U/L 11/18/2016 Comp Metabolic Oor781 AST(SGOT) 17 U/L 11/18/2016 Comp Metabolic Khl182 ALT(SGPT) 16 U/L 11/18/2016 Comp Metabolic Zzt579 BILI T 0.9 mg/dL 11/18/2016 Comp Metabolic Dpt753 ALBUMIN 3.9 g/dL 11/18/2016 Comp Metabolic Kii586 TPRO 6.4 g/dL 11/18/2016 Comp Metabolic Mby160 GLOB 2.5 g/dL 11/18/2016 Comp Metabolic Ffw190 A/G Ratio 1.6 Ratio 11/18/2016 Comp Metabolic Hgw784 Osmo 272 mOsmo 11/18/2016 %Hba1C Ddb211 % HbA1c 89389- 6 5.7 % 11/18/2016 %Hba1C Xqg113 Gluc Ave 117 mg/dL 11/18/2016 Cbc With [...] 14.4 % 11/18/2016 Cbc With Differential Ord2 Coffey% 14.0 % 11/18/2016 Cbc With Differential Ord2 [...] 1.07 K/ul 11/18/2016 Cbc With Differential Ord2 [place] ABS# 1.0 K/ul 11/18/2016 Cbc With Differential Ord2 Eos ABS# 0.1 K/ul 11/18/2016 Cbc With Differential Ord2 Baso ABS# 0.0 K/ul 11/18/2016 Lipid Ord30 CHOL 116 mg/dL 11/18/2016 Lipid Ord30 HDL 32.0 mg/dl 11/18/2016 Lipid Ord30 TRIG 97 mg/dL 11/18/2016 Lipid Ord30 LDL 65 mg/dL 11/18/2016 Lipid Ord30 C/HDL 3.6 Ratio 11/18/2016 Review of Systems System Result Effective Dates Constitutional No recent illness 10/19/2017 Constitutional No [...] FLU VACC PRSV FREE INC ANTIG CPT-4: 73724 10/19/2017 ADMIN PNEUMOCOCCAL VACCINE SNOMED CT: 78503310 CPT-4: G0009 11/19/2016 PNEUMOCOCCAL VACC [address]: 83305282 CPT-4: 76269 11/19/2016 ADMIN INFLUENZA VIRUS VAC CPT-4: G0008 11/17/2016 FLU VACC PRSV FREE INC ANTIG CPT-4: 43390 11/17/2016 Vital Signs Date Vital 10/19/2017 Blood Pressure 1: 132/70 Code: 8480-6 BMI: 33.1 Code: 04540-5 Heart Rate 1: 54 bpm Height: 5'11" SpO2: 97% Weight: 237 lbs 06/11/2017 Blood Pressure 1: 126/74 Code: 8480-6 BMI: 33.8 Code: 87950-1 Heart Rate 1: 60 bpm Height: 5'11" SpO2: 94% Weight: 242 lbs 8 oz 02/23/2017 Blood Pressure 1: 138/82 Code: 8480-6 BMI: 33.8 Code: 11379-5 Heart Rate 1: 65 bpm Height: 5'11" SpO2: 94% Weight: 242 lbs 11/17/2016 Blood Pressure 1: 132/70 Code: 8480-6 BMI: 33.6 Code: 57217-2 Heart Rate 1: 57 bpm Height: 5'11" SpO2: 94% Weight: 241 lbs Functional Status No Functional Status data History of Present Illness Symptom Name Status Result Effective Date Notes hypertension Quality primary hypertension 10/19/2017 None hypertension [...] Directive data Encounters Encounter Performer Location Codes ([id number]) [id number] EST. PATIENT, LEVEL IV Diagnosis: Type 2 diabetes mellitus without complications[ICD10: E11.9] Diagnosis: Essential (primary) hypertension[ICD10: I10] Diagnosis: Encounter for immunization[ICD10: Z23] Diagnosis: Other emphysema[ICD10: J43.8] Diagnosis: Testicular hypofunction[ICD10: E29.1] Lisa Pruitt MD, [facility] CPT-4: 73561 10/19/2017 ([id number]) [id number] EST. PATIENT, LEVEL IV Diagnosis: Type 2 diabetes mellitus without complications[ICD10: E11.9] Diagnosis: Essential (primary) hypertension[ICD10: I10] Diagnosis: Male erectile disorder[ICD10: F52.21] Diagnosis: Testicular hypofunction[ICD10: E29.1] Lisa Pruitt MD, [facility] CPT-4: 46052 06/11/2017 ([id number]) 14775 EST. PATIENT, LEVEL IV Diagnosis: Type 2 diabetes mellitus without complications[ICD10: E11.9] Diagnosis: Cough[ICD10: R05] Diagnosis: Other emphysema[ICD10: J43.8] Diagnosis: Male erectile disorder[ICD10: F52.21] Lisa Pruitt MD, [facility] CPT-4: 14098 02/23/2017 ([id number]) OFFICE VISIT, NEW - LEVEL 4 Diagnosis: Encounter for immunization[ICD10: Z23] Diagnosis: Type 2 diabetes mellitus without complications[ICD10: E11.9] Diagnosis: Essential (primary) hypertension[ICD10: I10] Diagnosis: Other emphysema[ICD10: J43.8] Diagnosis: Dependence on supplemental oxygen[ICD10: Z99.81] Diagnosis: Mixed hyperlipidemia[ICD10: E78.2] Lisa Pruitt MD, [facility] CPT- 4: 70371 11/17/2016 Plan of Care Planned Activity Notes Codes Status Date Visit Plan: Hypertension - well controlled - [...] - continue with oxygen at 5 liters [place] - recommended patient to call if his cough worsens, shortness of breath worsens or if he develops a fever. Erectile dysfunction - continue with prn cialis Flu shot given to pt today - high dose due to his Emphysema 10/19/2017 [facility] [phone] [facility] [place] (15 min) Moderate 10/19/2017 Patient Education: Patient [...] rehab. 06/11/2017 [facility]ment: [facility] [phone] [facility] [place] (15 min) Moderate 06/11/2017 Patient Education: Patient [...] prn viagra. 02/23/2017 [facility]ment: [facility] [phone] [facility] [place] (15 min) Moderate 02/23/2017 Patient Education: Patient [...] Flu shot 11/17/2016 [facility]ment: [facility] [phone] [facility] [place] New Patient 11/17/2016 Patient Education: Patient Medication Summary Completed 11/17/2016 Patient Education: Obesity Completed 11/17/2016 Instructions Comment . Hypertension - well controlled [...] Erectile dysfunction - continue with prn viagra. . Diabetes Mellitus - controlled - per [...]
--- OUTSIDE RECORDS SUMMARY | 2018-07-14 23:30 | XMS REPORT | Clinical Summary ---
Author Author Admin, [facility] Organization [facility] Address Unknown Phone Unavailable Allergies, Adverse Reactions, Alerts Allergy Name Reaction Description Start Date Severity Status Provider SHELLFISH Critical Active Rubén Conrad MD DEMEROL BP Drops Critical Active Rubén Conrad MD Conditions or Problems Problem Name Problem Code Onset Date Status Entry Date Provider Comment Standard Description Annotate OSTEOPOROSIS 733.00 Active Rubén Conrad MD Osteoporosis, unspecified HYPERLIPIDEMIA 272.4 Active Rubén Conrad MD Other and unspecified hyperlipidemia B P H 600.00 Active Rubén Conrad MD Hypertrophy (benign) of prostate without urinary obstruction and other lower urinary tract (LUTS) Lower Urinary Tract Symptoms 788.99 Active Rubén Conrad MD Other symptoms involving urinary system FH Lung Cancer V16.1 Active Rubén Conrad MD Family history of malignant neoplasm of trachea, bronchus, and lung 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 Rubén Conrad MD Retrograde ejaculation Medication List Medication Instructions Start Date Stop Date Generic Name NDC Status Provider Patient Instruction CLINDAMYCIN HCL 300 MG ORAL CAPS 1 tab by mouth 3 times a day for 2 weeks CLINDAMYCIN HCL 12696951483 Active Rubén Conrad MD Active GABAPENTIN 100 MG ORAL CAPS 3 tabs by mouth daily GABAPENTIN 33785454071 Active Rubén Conrad MD Active ELIQUIS 5 MG ORAL TABS 2 tabs by mouth daily APIXABAN 45147289892 Active Rubén Conrad MD Active HYDROCODONE-ACETAMINOPHEN 10-325 MG ORAL TABS 1 tab by mouth every 6 hours prn HYDROCODONE-ACETAMINOPHEN 45499792652 Active Rubén Conrad MD Active ASPIRIN 325 MG TABS Take one by mouth daily ASPIRIN 27168019741 No Longer Active Rubén Conrad MD Active MELOXICAM 15 MG TABS Take one by mouth daily MELOXICAM 69948301030 No Longer Active Rubén Conrad MD Active DIGOXIN 0.25 MG TABS Take one by mouth daily DIGOXIN 61233948321 No Longer Active Rubén Conrad MD Active CALCIUM 500 MG TABS Take one by mouth daily CALCIUM 43239634041 No Longer Active Rubén Conrad MD Active VITAMIN D 1000 UNIT CAPS Take one by mouth daily CHOLECALCIFEROL 34031250532 No Longer Active Rubén Conrad MD Active SAVELLA 100 MG TABS take one and half tabs twice a day MILNACIPRAN HCL 92890106705 No Longer Active Rubén Conrad MD Active METOPROLOL TARTRATE 25 MG TABS 1/2 tab daily METOPROLOL TARTRATE 84949332628 No Longer Active Rubén Conrad MD Active MONTELUKAST SODIUM 10 MG TABS Take one by mouth daily MONTELUKAST SODIUM 03671941161 Active Rubén Conrad MD Active LISINOPRIL 20 MG TABS Take one by mouth daily LISINOPRIL 86798784623 Active Ruébn Conrad MD Active VIAGRA 100 MG TABS 1 tab daily as needed as directed SILDENAFIL CITRATE 32768572331 Active Rubén Conrad MD Active FLOMAX 0.4 MG CAPS Take one by mouth daily as needed TAMSULOSIN HCL 91476137689 Active Rubén Conrad MD Active CLONAZEPAM 1 MG TABS take at bedtime CLONAZEPAM 71901845423 Active Rubén Conrad MD Active CARDIZEM CD 360 MG JR60T-SDA Take one by mouth daily DILTIAZEM HCL COATED BEADS 23530732445 Active Rubén Conrad MD Active OMEPRAZOLE 40 MG CPDR Take one by mouth daily OMEPRAZOLE 31760090805 Active Rubén Conrad MD Active MULTIVITAMINS CAPS Take one by mouth daily MULTIPLE VITAMIN 67599689615 Active Rubén Conrad MD Active MIRALAX POWD 17 gram with 8 oz of fluid every other day POLYETHYLENE GLYCOL 3350 10487804999 Active Rubén Conrad MD Active PRAVASTATIN SODIUM 10 MG TABS Take one by mouth daily PRAVASTATIN SODIUM 43512442318 Active Rubén Conrad MD Active LISINOPRIL-HYDROCHLOROTHIAZIDE 20-12.5 MG TABS Take two by mouth daily LISINOPRIL-HYDROCHLOROTHIAZIDE 16324607670 No Longer Active Rubén Conrad MD Active TRAMADOL HCL 50 MG TABS 1-2 tabs three times a day as needed TRAMADOL HCL 84540042212 Active Rubén Conrad MD Active CITRUCEL 500 MG TABS by mouth twice a day METHYLCELLULOSE (LAXATIVE) 00713517452 Active Rubén Conrad MD Active DEPO-TESTOSTERONE 200 MG/ML OIL 1cc IM every 2 weeks TESTOSTERONE CYPIONATE 52994452238 Active Rubén Conrad MD Active FISH OIL 1000 MG CAPS Take one by mouth daily OMEGA-3 FATTY ACIDS 58935871924 Active Rubén Conrad MD Active METOPROLOL TARTRATE 25 MG TABS 1/2 tab daily METOPROLOL TARTRATE 25 MG TABS 204573 METOPROLOL TARTRATE Inactive SAVELLA 100 MG TABS take one and half tabs twice a day SAVELLA 100 MG TABS MILNACIPRAN HCL Inactive VITAMIN D 1000 UNIT CAPS Take one by mouth daily VITAMIN D 1000 UNIT CAPS CHOLECALCIFEROL Inactive CALCIUM 500 MG TABS Take one by mouth daily CALCIUM 500 MG TABS 04111534290 CALCIUM Inactive DIGOXIN 0.25 MG TABS Take one by mouth daily DIGOXIN 0.25 MG TABS 966768 DIGOXIN Inactive MELOXICAM 15 MG TABS Take one by mouth daily MELOXICAM 15 MG TABS 851249 MELOXICAM Inactive ASPIRIN 325 MG TABS Take one by mouth daily ASPIRIN 325 MG TABS 804467 ASPIRIN Inactive Vital Signs Date Name Value Unit Range Description blood pressure, diastolic - 8462-4 88 mm[Hg] BP cope blood pressure, systolic - 8480-6 149 mm[Hg] BP sys temperature E&M 99.5 [degF] Body temperature weight E&M - 3141-9 264 [lb_av] Weight Measured Diagnostic Results Date Name Value Unit Range Description Chart Maintenance: Outside labs entered on flowsheet - Chemistry sodium, serum 138 mmol/L potassium, serum 3.7 mmol/L blood glucose 92 mg/dL creatinine, serum 0.93 mg/dL aspartate aminotransferase (SGOT), serum 18 U/L alanine aminotransferase (SGPT), serum 16 U/L alkaline phosphatase, serum 134 U/L cholesterol, serum 147 mg/dL HDL cholesterol, serum 35 mg/dL LDL cholesterol, serum 87.0 mg/dL triglyceride, serum, fasting 125 mg/dL prostate specific antigen 2.0 ng/mL thyroid stimulating hormone, serum 3.56 u[iU]/mL Chart Maintenance: Outside labs entered on flowsheet - Hematology hemoglobin, blood 12.7 g/dL Lab Report: Prostatic Specific Ag - Chemistry prostate specific antigen 2.72 ng/mL 0.00-4.00 Encounters Code Encounter Date Provider Facility CPT-60350 Level 3 Est. Patient 17:37:10 CDT Rubén Conrad MD [facility] CPT-87446 Level 3 Est. Patient 17:10:39 CDT Rubén Conrad MD [facility] CPT-32014 Level 3 Est. Patient 11:04:56 CDT Rubén Conrad MD [facility] CPT-11948 Level 3 Est. 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 Patient 11:52:39 CDT Rubén Conrad MD [facility] CPT-16926 Level 3 Est. 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
[2018-07-14 23:31] LABS: INR 1.3 (0.8-1.4); PROTHROMBIN TIME PATIENT 16.8 SEC (12.2-14.7)
--- OUTSIDE RECORDS SUMMARY | 2018-07-14 23:31 | XMS REPORT | Clinical Summary ---
Author Author Admin, JH Organization [employer] Address Unknown Phone Unavailable Allergies, Adverse Reactions, [...] a day for 2 weeks CLINDAMYCIN HCL [id number] No Longer Active Rubén Conrad MD Active GABAPENTIN 100 MG ORAL CAPS 3 tabs by mouth daily GABAPENTIN 81743920349 Active Rubén Conrad MD Active ELIQUIS 5 MG ORAL TABS 2 tabs by mouth daily APIXABAN 74373382928 Active Rubén Conrad MD Active HYDROCODONE-ACETAMINOPHEN 10-325 MG ORAL TABS 1 tab by mouth every 6 hours prn HYDROCODONE-ACETAMINOPHEN 57393913472 Active Rubén Conrad MD Active ASPIRIN 325 MG TABS Take one by mouth daily ASPIRIN 66027451761 No Longer Active Rubén Conrad MD Active MELOXICAM 15 MG TABS Take one by mouth daily MELOXICAM 88178001251 No Longer Active Rubén Conrad MD Active DIGOXIN 0.25 MG TABS Take one by mouth daily DIGOXIN 53742239994 No Longer Active Rubén Conrad MD Active CALCIUM 500 MG TABS Take one by mouth daily CALCIUM 69250870400 No Longer Active Rubén Conrad MD Active VITAMIN D 1000 UNIT CAPS Take one by mouth daily CHOLECALCIFEROL 18761004647 No Longer Active Rubén Conrad MD Active SAVELLA 100 MG TABS take one and half tabs twice a day MILNACIPRAN HCL 02634712571 No Longer Active Rubén Conrad MD Active METOPROLOL TARTRATE 25 MG TABS 1/2 tab daily METOPROLOL TARTRATE 37453901242 No Longer Active Rubén Conrad MD Active MONTELUKAST SODIUM 10 MG TABS Take one by mouth daily MONTELUKAST SODIUM 28509738078 Active Rubén Conrad MD Active LISINOPRIL 20 MG TABS Take one by mouth daily LISINOPRIL 93707315235 Active Rubén Conrad MD Active VIAGRA 100 MG TABS 1 tab daily as needed as directed SILDENAFIL CITRATE 34316812159 Active Rubén Conrad MD Active FLOMAX 0.4 MG CAPS Take one by mouth daily as needed TAMSULOSIN HCL 96564228439 Active Rubén Conrad MD Active CLONAZEPAM 1 MG TABS take at bedtime CLONAZEPAM 67312306385 Active Rubén Conrad MD Active CARDIZEM CD 360 MG [id number] Take one by mouth daily DILTIAZEM HCL COATED BEADS 11559877054 Active Rubén Conrad MD Active OMEPRAZOLE 40 MG CPDR Take one by mouth daily OMEPRAZOLE 03197043986 Active Rubén Conrad MD Active MULTIVITAMINS CAPS Take one by mouth daily MULTIPLE VITAMIN 06426580840 Active Rubén Conrad MD Active MIRALAX POWD 17 gram with 8 oz of fluid every other day POLYETHYLENE GLYCOL 3350 87446387351 Active Rubén Conrad MD Active PRAVASTATIN SODIUM 10 MG TABS Take one by mouth daily PRAVASTATIN SODIUM 86616479775 Active Rubén Conrad MD Active LISINOPRIL-HYDROCHLOROTHIAZIDE 20-12.5 MG TABS Take two by mouth daily LISINOPRIL-HYDROCHLOROTHIAZIDE 92560688450 No Longer Active Rubén Conrad MD Active TRAMADOL HCL 50 MG TABS 1-2 tabs three times a day as needed TRAMADOL HCL 05340432680 Active Rubén Conrad MD Active CITRUCEL 500 MG TABS by mouth twice a day METHYLCELLULOSE (LAXATIVE) 92567058888 Active Rubén Conrad MD Active DEPO-TESTOSTERONE 200 MG/ML OIL 1cc IM every 2 weeks TESTOSTERONE CYPIONATE 79755060129 Active Rubén Conrad MD Active FISH OIL 1000 MG CAPS Take one by mouth daily OMEGA-3 FATTY ACIDS 69512794697 Active Rubén Conrad MD Active METOPROLOL TARTRATE 25 MG TABS 1/2 tab daily METOPROLOL TARTRATE 25 MG TABS 465408 METOPROLOL TARTRATE Inactive SAVELLA 100 MG TABS take one and half tabs twice a day SAVELLA 100 MG TABS MILNACIPRAN HCL Inactive VITAMIN D 1000 UNIT CAPS Take one by mouth daily VITAMIN D 1000 UNIT CAPS CHOLECALCIFEROL Inactive CALCIUM 500 MG TABS Take one by mouth daily CALCIUM 500 MG TABS 30966663520 CALCIUM Inactive DIGOXIN 0.25 MG TABS Take one by mouth daily DIGOXIN 0.25 MG TABS 004328 DIGOXIN Inactive MELOXICAM 15 MG TABS Take one by mouth daily MELOXICAM 15 MG TABS 499194 MELOXICAM Inactive ASPIRIN 325 MG TABS Take one by mouth daily ASPIRIN 325 MG TABS 683438 ASPIRIN Inactive CLINDAMYCIN HCL 300 MG ORAL CAPS 1 tab by mouth 3 times a day for 2 weeks CLINDAMYCIN HCL 300 MG ORAL CAPS 672055 CLINDAMYCIN HCL Inactive Encounters Code Encounter Date Provider Facility CPT-24483 Level 3 Est. Patient 17:37:10 CDT Rubén Conrad MD [facility] CPT-88783 Level 3 Est. Patient 17:10:39 CDT Rubén Conrad MD [facility] CPT-00234 Level 3 Est. Patient 11:04:56 CDT Rubén Conrad MD [facility] CPT-91442 Level 3 Est. 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 Patient 11:52:39 CDT Rubén Conrad MD [facility] CPT-53203 Level 3 Est. Patient 13:37:32 PUBLIC RELATIONS WRITER Rubén Conrad MD [facility] CPT-25441 Level 3 Est. Patient 11:47:31 PUBLIC RELATIONS WRITER Rubén Conrad [facility] Procedures Code Procedure Name Date Entry Date Standard Description CPT-64361 Bladder Scan 17:10:39 CDT CPT-99652 Bladder Scan 11:04:56 CDT CPT-85594 Urine Dip (Floor Use Only) 11:04:55 CDT CPT-46421 Bladder Scan 17:00:26 PUBLIC RELATIONS WRITER CPT-89309 Bladder Scan 11:52:39 CDT CPT-53358 Bladder Scan 13:37:32 PUBLIC RELATIONS WRITER CPT-19411 Bladder Scan 11:47:31 PUBLIC RELATIONS WRITER
--- OUTSIDE RECORDS SUMMARY | 2018-07-14 23:31 | XMS REPORT | Clinical Summary ---
Author Author Admin, JH Organization [facility] Address Unknown Phone Unavailable Allergies, Adverse Reactions, [...] malignant neoplasm of trachea, bronchus, and lung Medication List Medication Instructions Start Date Stop Date Generic Name NDC Status Provider Patient Instruction METOPROLOL TARTRATE 25 MG TABS 1/2 tab daily METOPROLOL TARTRATE 13928823531 Active Rubén Conrad MD Active MONTELUKAST SODIUM 10 MG TABS Take one by mouth daily MONTELUKAST SODIUM 04549902065 Active Rubén Conrad MD Active LISINOPRIL 20 MG TABS Take one by mouth daily LISINOPRIL 44203607710 Active Rubén Conrad MD Active VIAGRA 100 MG TABS 1 tab daily as needed as directed SILDENAFIL CITRATE 25894501548 Active Rubén Conrad MD Active FLOMAX 0.4 MG CAPS Take one by mouth daily as needed TAMSULOSIN HCL 37674670769 Active Rubén Conrad MD Active SAVELLA 100 MG TABS take one and half tabs twice a day MILNACIPRAN HCL 36558036553 Active Rubén Conrad MD Active VITAMIN D 1000 UNIT CAPS Take one by mouth daily CHOLECALCIFEROL 89003241506 Active Rubén Conrad MD Active CLONAZEPAM 1 MG TABS take at bedtime CLONAZEPAM 94400698115 Active Rubén Conrad MD Active CARDIZEM CD 360 MG [id number] Take one by mouth daily DILTIAZEM HCL COATED BEADS 86557027654 Active Rubén Conrad MD Active CALCIUM 500 MG TABS Take one by mouth daily CALCIUM 99537114024 Active Rubén Conrad MD Active OMEPRAZOLE 40 MG CPDR Take one by mouth daily OMEPRAZOLE 07154738090 Active Rubén Conrad MD Active DIGOXIN 0.25 MG TABS Take one by mouth daily DIGOXIN 19096320358 Active Rubén Conrad MD Active MULTIVITAMINS CAPS Take one by mouth daily MULTIPLE VITAMIN 28084259410 Active Rubén Conrad MD Active MIRALAX POWD 17 gram with 8 oz of fluid every other day POLYETHYLENE GLYCOL 3350 77371072856 Active Rubén Conrad MD Active MELOXICAM 15 MG TABS Take one by mouth daily MELOXICAM 98027811030 Active Rubén Conrad MD Active ASPIRIN 325 MG TABS Take one by mouth daily ASPIRIN 58619569109 Active Rubén Conrad MD Active PRAVASTATIN SODIUM 10 MG TABS Take one by mouth daily PRAVASTATIN SODIUM 53807362089 Active Rubén Conrad MD Active LISINOPRIL-HYDROCHLOROTHIAZIDE 20-12.5 MG TABS Take two by mouth daily LISINOPRIL-HYDROCHLOROTHIAZIDE 50705827476 No Longer Active Rubén Conrad MD Active TRAMADOL HCL 50 MG TABS 1-2 tabs three times a day as needed TRAMADOL HCL 94236671414 Active Rubén Conrad MD Active CITRUCEL 500 MG TABS by mouth twice a day METHYLCELLULOSE (LAXATIVE) 88506789186 Active Rubén Conrad MD Active DEPO-TESTOSTERONE 200 MG/ML OIL 1cc IM every 2 weeks TESTOSTERONE CYPIONATE 98359246396 Active Rubén Conrad MD Active FISH OIL 1000 MG CAPS Take one by mouth daily OMEGA-3 FATTY ACIDS 75409421266 Active Rubén Conrad MD Active Vital Signs Date Name Value Unit Range Description blood pressure, diastolic - 8462-4 81 mm[Hg] BP cope blood pressure, systolic - 8480-6 146 mm[Hg] BP sys height E&M - 8302-2 71.5 [in_us] Bdy height pulse rate E&M - 8867-4 72 /min Heart rate temperature E&M 96.8 [degF] Body temperature weight E&M - 3141-9 261 [lb_av] Weight Measured Diagnostic Results Date Name Value Unit Range Description Office Visit: 6m fu BPH Flomax - Chemistry RBC, urine, dipstick negative protein, total urine random negative mg/dL Office Visit: 6m fu BPH Flomax - Urinalysis pH, urine, semiquantitative 5 specific gravity, urine 1.030 urinalysis, routine Clean Catch culture status No ketones, urine, by test strip negative bilirubin, urine negative glucose, urine, semiquantitative negative urine color yellow appearance, urine clear leukocyte esterase, urine, by dipstick negative nitrite, urine, semiquantitative negative urobilinogen, urine, semiquantitative (dipstick) negative protein, urine, semiquantitative (dipstick) negative Encounters Code Encounter Date Provider Facility CPT-10281 Level 3 Est. Patient 11:04:56 CDT Rubén Conrad MD [facility] CPT-27853 Level 3 Est. 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 Patient 11:52:39 CDT Rubén Conrad MD [facility] CPT-81998 Level 3 Est. Patient 13:37:32 STEM TEACHER Rubén Conrad MD [facility] CPT-01210 Level 3 Est. Patient 11:47:31 STEM TEACHER Rubén Conrad MD [facility] Procedures Code Procedure Name Date Entry Date Standard Description CPT-98834 Bladder Scan 11:04:56 CDT CPT-48191 Urine Dip (Floor Use Only) 11:04:55 CDT CPT-58545 Bladder Scan 17:00:26 STEM TEACHER CPT-96788 Bladder Scan 11:52:39 CDT CPT-90740 Bladder Scan 13:37:32 STEM TEACHER CPT-95782 Bladder Scan 11:47:31 STEM TEACHER
--- NOTE | 2018-07-14 23:32 | ED Cardiac General ---
History of Present Illness General Chief Complaint: Cardiac/General Problems Stated Complaint: AFIB Nursing Triage Note: rapid heart rate, chest pressure x1 hr. Allergies and Home Medications Allergies Coded Allergies: meperidine (Unverified Allergy, Unknown, LOW BP, N/V, 09/12/13) shellfish derived (Unverified Allergy, Unknown, 09/12/13) Home Medications Apixaban 5 Mg Tablet, 5 MG PO BID, (Reported) Aspirin 81 Mg Tabec, 81 MG PO DAILY, (Reported) Diltiazem HCl 360 Mg Cap.er.24h, 360 MG PO HS, (Reported) Metoprolol Tartrate 25 Mg Tablet, 25 MG PO DAILY, (Reported) Montelukast Sodium 10 Mg Tablet, 10 MG PO HS, (Reported) Omeprazole 40 Mg Capsule.dr, 40 MG PO HS, (Reported) Pravastatin Sodium 10 Mg Tablet, 10 MG PO HS, (Reported) Tamsulosin Hcl 0.4 Mg Cap.er.24h, 0.4 MG PO DAILY, (Reported) Testosterone Cypionate 200 Mg/1 Ml Vial, 200 MG IM [id number], (Reported) Tramadol Hcl 50 Mg Tablet, 50 MG PO Q6H PRN for PAIN, (Reported) PRN PAIN Past Wrcqrze-Cawvso-Vdbaty Hx Patient Social History Alcohol Use: Rarely Uses Recreational Drug Use: No Smoking Status: Never a Smoker 2nd Hand Smoke Exposure: No Recent Foreign Travel: No Contact w/Someone Who Travel: No Recent Infectious Disease Expo: No Recent Hopitalizations: No Immunizations Up To Date Tetanus Booster (TDap): Unknown Date of Pneumonia Vaccine: Nov 09, 2012 Past Medical History Surgeries: Yes (mv repair, loop recorder) Abdominal, Cardiac, Eye Surgery, Lobectomy Respiratory: Yes COPD, Emphysema Cardiac: Yes Atrial Fibrillation, Coronary Artery Disease, Heart Attack, High Cholesterol, Hypertension Neurological: No Reproductive Disorders: No Sexually Transmitted Disease: No HIV/AIDS: No Genitourinary: No Gastrointestinal: Yes Gastroesophageal Reflux, Jackson's Esophagus Musculoskeletal: Yes (LEFT KNEE DJD, SPINAL STENOSIS, RESTLESS LEG SYNDROME) Arthritis, Fibromyalgia Endocrine: Yes (DIET CONTROLLED DIABETES) Diabetes, Non-Insulin dep HEENT: Yes Cataract Cancer: Yes Skin Psychosocial: No Integumentary: No Blood Disorders: No Physical Exam Vital Signs Vital Signs - First Documented 07/14/18 23:06 Temp 97.8 Pulse 80 Resp 22 B/P (MAP) 106/73 (84) Pulse Ox 96 O2 Delivery Nasal Cannula O2 Flow Rate 4.00 Capillary Refill : Less Than 3 Seconds Height, Weight, BMI Height: 5'10.00" Weight: 242lbs. 0.0oz. 109.388106md; 35.7 BMI Method:Stated Progress/Results/Core Measures Results/Orders Lab Results Laboratory Tests Test 07/14/18 23:14 Range/Units White Blood Count 5.5 4.3-11.0 10^3/uL Red Blood Count 5.23 4.35-5.85 10^6/uL Hemoglobin 16.3 13.3-17.7 G/DL Hematocrit 48 40-54 % Mean Corpuscular Volume 92 80-99 FL Mean Corpuscular Hemoglobin 31 25-34 PG Mean Corpuscular Hemoglobin Concent 34 32-36 G/DL Red Cell Distribution Width 14.9 H 10.0-14.5 % Platelet Count 213 130-400 10^3/uL Mean Platelet Volume 10.0 7.4-10.4 FL Neutrophils (%) (Auto) 57 42-75 % Lymphocytes (%) (Auto) 27 12-44 % Monocytes (%) (Auto) 15 H 0-12 % Eosinophils (%) (Auto) 1 0-10 % Basophils (%) (Auto) 1 0-10 % Neutrophils # (Auto) 3.1 1.8-7.8 X 10^3 Lymphocytes # (Auto) 1.5 1.0-4.0 X 10^3 Monocytes # (Auto) 0.8 0.0-1.0 X 10^3 Eosinophils # (Auto) 0.1 0.0-0.3 10^3/uL Basophils # (Auto) 0.0 0.0-0.1 10^3/uL Prothrombin Time 16.8 H 12.2-14.7 SEC INR Comment 1.3 0.8-1.4 Activated Partial Thromboplast Time 32 24-35 SEC Sodium Level 140 135-145 MMOL/L Potassium Level 4.0 3.6-5.0 MMOL/L Chloride Level 110 H 98-107 MMOL/L Carbon Dioxide Level 16 L 21-32 MMOL/L Anion Gap 14 5-14 MMOL/L Blood Urea Nitrogen 20 H 7-18 MG/DL Creatinine 1.35 H 0.60-1.30 MG/DL Estimat Glomerular Filtration Rate 51 BUN/Creatinine Ratio 15 Glucose Level 128 H 70-105 MG/DL Calcium Level 9.7 8.5-10.1 MG/DL Corrected Calcium 9.5 8.5-10.1 MG/DL Magnesium Level 1.8 1.8-2.4 MG/DL Total Bilirubin 0.8 0.1-1.0 MG/DL Aspartate Amino Transf (AST/SGOT) 17 5-34 U/L Alanine Aminotransferase (ALT/SGPT) 15 0-55 U/L Alkaline Phosphatase 84 40-136 U/L Myoglobin 69.9 10.0-92.0 NG/ML Troponin I < 0.028 <0.028 NG/ML B-Type Natriuretic Peptide 174.7 H <100.0 PG/ML Total Protein 7.2 6.4-8.2 GM/DL Albumin 4.2 3.2-4.5 GM/DL My Orders Orders - MADDISON CHOUDHARY DO Cbc With Automated Diff (07/14/18 23:13) Magnesium (07/14/18 23:13) Chest 1 View, Ap/Pa Only (07/14/18 23:13) Ekg Tracing (07/14/18 23:13) Cardiac Profile 1 (07/14/18 23:13) Comprehensive Metabolic Panel (07/14/18 23:13) Myoglobin Serum (07/14/18 23:13) Protime With Inr (07/14/18 23:13) Partial Thromboplastin Time (07/14/18 23:13) O2 (07/14/18 23:13) Monitor-Rhythm Ecg Trace Only (07/14/18 23:13) Lipid Panel (07/15/18 06:00) Ed Iv/Invasive Line Start (07/14/18 23:13) BNP (07/14/18 23:13) Aspirin Chewable Tablet (Baby Aspirin Ch (07/14/18 23:15) Furosemide Injection (Lasix Injection) (07/15/18 00:30) Medications Given in ED Current Medications Medications Dose Ordered Sig/Miri Route Start Time Stop Time Status Last Admin Dose Admin Aspirin 324 mg ONCE ONCE PO 07/14/18 23:15 07/14/18 23:16 DC 07/14/18 23:34 324 MG Furosemide 80 mg ONCE ONCE IVP 07/15/18 00:30 07/15/18 00:31 DC 07/15/18 00:30 80 MG Vital Signs/I&O 07/14/18 07/14/18 23:06 23:06 Temp 97.8 Pulse 80 Resp 22 B/P (MAP) 106/73 (84) Pulse Ox 96 96 O2 Delivery Nasal Cannula Nasal Cannula O2 Flow Rate 4.00 4.00 Blood Pressure Mean: 84 Departure Impression Primary Impression: CHRONIC INTERMITTENT ATRIAL FIBRILLATION Additional Impressions: CHF (congestive heart failure) Renal insufficiency Disposition: HOME, SELF-CARE Condition: Improved Departure-Patient Inst. Referrals: REJI GIBBS MD (PCP) Primary Care Physician MIRLANDE COOPER MD Patient Instructions: Atrial Fibrillation (DC), CHF, Heart Failure and Atrial Fibrillation Add. Discharge Instructions: CONTINUE YOUR MEDICATIONS PRESCRIBED FOLLOW UP WITH DR. COOPER THIS WEEK FOR FURTHER CARE RETURN TO ER IF WORSE All discharge instructions reviewed with patient and/or family. Voiced understanding. MADDISON CHOUDHARY DO Jul 14, 2018 23:32
--- OUTSIDE RECORDS SUMMARY | 2018-07-14 23:32 | XMS REPORT | Clinical Summary ---
Author Author Admin, JH Organization [facility] Address Unknown Phone Unavailable Allergies, Adverse [...] MG TABS 1/2 tab daily METOPROLOL TARTRATE 19772401606 Active Rubén Conrad MD Active MONTELUKAST SODIUM 10 MG TABS Take one by mouth daily MONTELUKAST SODIUM 02979643449 Active Rubén Conrad MD Active LISINOPRIL 20 MG TABS Take one by mouth daily LISINOPRIL 30589207983 Active Rubén Conrad MD Active VIAGRA 100 MG TABS 1 tab daily as needed as directed SILDENAFIL CITRATE 38274410732 Active Rubén Conrad MD Active FLOMAX 0.4 MG CAPS Take one by mouth daily as needed TAMSULOSIN HCL 71337829896 Active Rubén Conrad MD Active SAVELLA 100 MG TABS take one and half tabs twice a day MILNACIPRAN HCL 12153516772 Active Rubén Conrad MD Active VITAMIN D 1000 UNIT CAPS Take one by mouth daily CHOLECALCIFEROL 51759282994 Active Rubén Conrad MD Active CLONAZEPAM 1 MG TABS take at bedtime CLONAZEPAM 13671118457 Active Rubén Conrad MD Active CARDIZEM CD 360 MG [id number] Take one by mouth daily DILTIAZEM HCL COATED BEADS 89519470643 Active Rubén Conrad MD Active CALCIUM 500 MG TABS Take one by mouth daily CALCIUM 08887234372 Active Rubén Conrad MD Active OMEPRAZOLE 40 MG CPDR Take one by mouth daily OMEPRAZOLE 89800987278 Active Rubén Conrad MD Active DIGOXIN 0.25 MG TABS Take one by mouth daily DIGOXIN 76190456884 Active Rubén Conrad MD Active MULTIVITAMINS CAPS Take one by mouth daily MULTIPLE VITAMIN 41089040492 Active Rubén Conrad MD Active MIRALAX POWD 17 gram with 8 oz of fluid every other day POLYETHYLENE GLYCOL 3350 13003789529 Active Rubén Conrad MD Active MELOXICAM 15 MG TABS Take one by mouth daily MELOXICAM 81877623854 Active Rubén Conrad MD Active ASPIRIN 325 MG TABS Take one by mouth daily ASPIRIN 03896192169 Active Rubén Conrad MD Active PRAVASTATIN SODIUM 10 MG TABS Take one by mouth daily PRAVASTATIN SODIUM 23438258564 Active Rubén Conrad MD Active LISINOPRIL-HYDROCHLOROTHIAZIDE 20-12.5 MG TABS Take two by mouth daily LISINOPRIL-HYDROCHLOROTHIAZIDE 14380245127 No Longer Active Rubén Conrad MD Active TRAMADOL HCL 50 MG TABS 1-2 tabs three times a day as needed TRAMADOL HCL 95850929842 Active Rubén Conrad MD Active CITRUCEL 500 MG TABS by mouth twice a day METHYLCELLULOSE (LAXATIVE) 30721956950 Active Rubén Conrad MD Active DEPO-TESTOSTERONE 200 MG/ML OIL 1cc IM every 2 weeks TESTOSTERONE CYPIONATE 58957303886 Active Rubén Conrad MD Active FISH OIL 1000 MG CAPS Take one by mouth daily OMEGA-3 FATTY ACIDS 94077140333 Active Rubén Conrad MD Active Vital Signs Date Name Value Unit Range Description blood pressure, diastolic - 8462-4 88 mm[Hg] BP cope blood pressure, systolic - 8480-6 149 mm[Hg] BP sys temperature E&M 99.5 [degF] Body temperature weight E&M - 3141-9 264 [lb_av] Weight Measured Diagnostic Results Date Name Value Unit Range Description Lab Report: Prostatic Specific Ag - Chemistry prostate specific antigen 2.72 ng/mL 0.00-4.00 Encounters Code Encounter Date Provider Facility CPT-22447 Level 3 Est. Patient 17:10:39 CDT Rubén Conrad MD [facility] CPT-75846 Level 3 Est. Patient 11:04:56 CDT Rubén Conrad MD [facility] CPT-90518 Level 3 Est. 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 Patient 11:52:39 CDT Rubén Conrad MD [facility] CPT-85779 Level 3 Est. 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
--- OUTSIDE RECORDS SUMMARY | 2018-07-14 23:32 | XMS REPORT | Clinical Summary ---
Author Author Admin, JH Organization [facility] Address Unknown Phone Unavailable Allergies, Adverse [...] MG TABS 1/2 tab daily METOPROLOL TARTRATE 98411023971 Active Rubén oCnrad MD Active MONTELUKAST SODIUM 10 MG TABS Take one by mouth daily MONTELUKAST SODIUM 99256002148 Active Rubén Conrad MD Active LISINOPRIL 20 MG TABS Take one by mouth daily LISINOPRIL 16050824691 Active Rubén Conrad MD Active VIAGRA 100 MG TABS 1 tab daily as needed as directed SILDENAFIL CITRATE 72630431318 Active Rubén Conrad MD Active FLOMAX 0.4 MG CAPS Take one by mouth daily as needed TAMSULOSIN HCL 88929082150 Active Rubén Conrad MD Active SAVELLA 100 MG TABS take one and half tabs twice a day MILNACIPRAN HCL 39197830704 Active Rubén Conrad MD Active VITAMIN D 1000 UNIT CAPS Take one by mouth daily CHOLECALCIFEROL 33535057166 Active Rubén Conrad MD Active CLONAZEPAM 1 MG TABS take at bedtime CLONAZEPAM 84531603258 Active Rubén Conrad MD Active CARDIZEM CD 360 MG [id number] Take one by mouth daily DILTIAZEM HCL COATED BEADS 22800270718 Active Rubén Conrad MD Active CALCIUM 500 MG TABS Take one by mouth daily CALCIUM 85609250483 Active Rubén Conrad MD Active OMEPRAZOLE 40 MG CPDR Take one by mouth daily OMEPRAZOLE 45060171002 Active Rubén Conrad MD Active DIGOXIN 0.25 MG TABS Take one by mouth daily DIGOXIN 82924195423 Active Rubén Conrad MD Active MULTIVITAMINS CAPS Take one by mouth daily MULTIPLE VITAMIN 67879844817 Active Rubén Conrad MD Active MIRALAX POWD 17 gram with 8 oz of fluid every other day POLYETHYLENE GLYCOL 3350 87833801055 Active Rubén Conrad MD Active MELOXICAM 15 MG TABS Take one by mouth daily MELOXICAM 22603586816 Active Rubén Conrad MD Active ASPIRIN 325 MG TABS Take one by mouth daily ASPIRIN 68735860560 Active Rubén Conrad MD Active PRAVASTATIN SODIUM 10 MG TABS Take one by mouth daily PRAVASTATIN SODIUM 98880199275 Active Rubén Conrad MD Active LISINOPRIL-HYDROCHLOROTHIAZIDE 20-12.5 MG TABS Take two by mouth daily LISINOPRIL-HYDROCHLOROTHIAZIDE 34845593584 No Longer Active Rubén Conrad MD Active TRAMADOL HCL 50 MG TABS 1-2 tabs three times a day as needed TRAMADOL HCL 91514865058 Active Rubén Conrad MD Active CITRUCEL 500 MG TABS by mouth twice a day METHYLCELLULOSE (LAXATIVE) 63315586124 Active Rubén Conrad MD Active DEPO-TESTOSTERONE 200 MG/ML OIL 1cc IM every 2 weeks TESTOSTERONE CYPIONATE 63219826871 Active Rubén Conrad MD Active FISH OIL 1000 MG CAPS Take one by mouth daily OMEGA-3 FATTY ACIDS 79183306461 Active Rubén Conrad MD Active Vital Signs [...] Chemistry prostate specific antigen 2.72 ng/mL 0.00-4.00 Office Visit: 6m fu BPH Flomax - Chemistry protein, total urine random negative mg/dL RBC, urine, dipstick negative Office Visit: 6m fu BPH Flomax - Urinalysis ketones, urine, by test strip negative bilirubin, urine negative glucose, urine, semiquantitative negative urine color yellow appearance, urine clear leukocyte esterase, urine, by dipstick negative nitrite, urine, semiquantitative negative urobilinogen, urine, semiquantitative (dipstick) negative protein, urine, semiquantitative (dipstick) negative pH, urine, semiquantitative 5 specific gravity, urine 1.030 urinalysis, routine Clean Catch culture status No Encounters Code Encounter Date Provider Facility CPT-31571 Level 3 Est. Patient 11:04:56 CDT Rubén Conrad MD [facility] CPT-19690 Level 3 Est. 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 Patient 11:52:39 CDT Rubén Conrad MD [facility] CPT-04389 Level 3 Est. Patient 13:37:32 CHUTE FEEDER Rubén Conrad MD [facility] CPT-58274 Level 3 Est. Patient 11:47:31 CHUTE FEEDER Rubén Conrad MD [facility] Procedures Code Procedure Name Date Entry Date Standard Description CPT-51284 Bladder Scan 11:04:56 CDT CPT-75262 Urine Dip (Floor Use Only) 11:04:55 CDT CPT-38447 Bladder Scan 17:00:26 CHUTE FEEDER CPT-20874 Bladder Scan 11:52:39 CDT CPT-83066 Bladder Scan 13:37:32 CHUTE FEEDER CPT-26391 Bladder Scan 11:47:31 CHUTE FEEDER
--- OUTSIDE RECORDS SUMMARY | 2018-07-14 23:32 | XMS REPORT | Clinical Summary ---
Author Author Admin, J[facility] Organization [employer] Address Unknown Phone Unavailable Allergies, Adverse Reactions, [...] a day for 2 weeks CLINDAMYCIN HCL 32584750316 Active Rubén Conrad MD Active GABAPENTIN 100 MG ORAL CAPS 3 tabs by mouth daily GABAPENTIN 91884972787 Active Rubén Conrad MD Active ELIQUIS 5 MG ORAL TABS 2 tabs by mouth daily APIXABAN 48545411181 Active Rubén Conrad MD Active HYDROCODONE-ACETAMINOPHEN 10-325 MG ORAL TABS 1 tab by mouth every 6 hours prn HYDROCODONE-ACETAMINOPHEN 06162418608 Active Rubén Conrad MD Active ASPIRIN 325 MG TABS Take one by mouth daily ASPIRIN 92582857926 No Longer Active Rubén Conrad MD Active MELOXICAM 15 MG TABS Take one by mouth daily MELOXICAM 39732684045 No Longer Active Rubén Conrad MD Active DIGOXIN 0.25 MG TABS Take one by mouth daily DIGOXIN 43881434268 No Longer Active Rubén Conrad MD Active CALCIUM 500 MG TABS Take one by mouth daily CALCIUM 25831733896 No Longer Active Rubén Conrad MD Active VITAMIN D 1000 UNIT CAPS Take one by mouth daily CHOLECALCIFEROL 63592582348 No Longer Active Rubén Conrad MD Active SAVELLA 100 MG TABS take one and half tabs twice a day MILNACIPRAN HCL 18328762207 No Longer Active Rubén Conrad MD Active METOPROLOL TARTRATE 25 MG TABS 1/2 tab daily METOPROLOL TARTRATE 28307237946 No Longer Active Rubén Conrad MD Active MONTELUKAST SODIUM 10 MG TABS Take one by mouth daily MONTELUKAST SODIUM 47013308764 Active Rubén Conrad MD Active LISINOPRIL 20 MG TABS Take one by mouth daily LISINOPRIL 52840183706 Active Rubén Conrad MD Active VIAGRA 100 MG TABS 1 tab daily as needed as directed SILDENAFIL CITRATE 22840040911 Active Rubén Conrad MD Active FLOMAX 0.4 MG CAPS Take one by mouth daily as needed TAMSULOSIN HCL 83462684845 Active Rubén Conrad MD Active CLONAZEPAM 1 MG TABS take at bedtime CLONAZEPAM 14514708117 Active Rubén Conrad MD Active CARDIZEM CD 360 MG [id number] Take one by mouth daily DILTIAZEM HCL COATED BEADS 42733957245 Active Rubén Conrad MD Active OMEPRAZOLE 40 MG CPDR Take one by mouth daily OMEPRAZOLE 31247158486 Active Rubén Conrad MD Active MULTIVITAMINS CAPS Take one by mouth daily MULTIPLE VITAMIN 22410276192 Active Rubén Conrad MD Active MIRALAX POWD 17 gram with 8 oz of fluid every other day POLYETHYLENE GLYCOL 3350 57757860295 Active Rubén Conrad MD Active PRAVASTATIN SODIUM 10 MG TABS Take one by mouth daily PRAVASTATIN SODIUM 27935038407 Active Rubén Conrad MD Active LISINOPRIL-HYDROCHLOROTHIAZIDE 20-12.5 MG TABS Take two by mouth daily LISINOPRIL-HYDROCHLOROTHIAZIDE 31385491313 No Longer Active Rubén Conrad MD Active TRAMADOL HCL 50 MG TABS 1-2 tabs three times a day as needed TRAMADOL HCL 71784297958 Active Rubén Conrad MD Active CITRUCEL 500 MG TABS by mouth twice a day METHYLCELLULOSE (LAXATIVE) 80410438428 Active Rubén Conrad MD Active DEPO-TESTOSTERONE 200 MG/ML OIL 1cc IM every 2 weeks TESTOSTERONE CYPIONATE 00839484614 Active Rubén Conrad MD Active FISH OIL 1000 MG CAPS Take one by mouth daily OMEGA-3 FATTY ACIDS 01102722470 Active Rubén Conrad MD Active METOPROLOL TARTRATE 25 MG TABS 1/2 tab daily METOPROLOL TARTRATE 25 MG TABS 363494 METOPROLOL TARTRATE Inactive SAVELLA 100 MG TABS take one and half tabs twice a day SAVELLA 100 MG TABS MILNACIPRAN HCL Inactive VITAMIN D 1000 UNIT CAPS Take one by mouth daily VITAMIN D 1000 UNIT CAPS CHOLECALCIFEROL Inactive CALCIUM 500 MG TABS Take one by mouth daily CALCIUM 500 MG TABS 97785877880 CALCIUM Inactive DIGOXIN 0.25 MG TABS Take one by mouth daily DIGOXIN 0.25 MG TABS 897778 DIGOXIN Inactive MELOXICAM 15 MG TABS Take one by mouth daily MELOXICAM 15 MG TABS 519718 MELOXICAM Inactive ASPIRIN 325 MG TABS Take one by mouth daily ASPIRIN 325 MG TABS 218033 ASPIRIN Inactive Vital Signs Date Name Value Unit Range Description blood pressure, diastolic - 8462-4 67 mm[Hg] BP cope blood pressure, systolic - 8480-6 111 mm[Hg] BP sys pulse rate E&M - 8867-4 77 /min Heart rate temperature E&M 97.2 [degF] Body temperature weight E&M - 3141-9 256.2 [lb_av] Weight Measured blood pressure, diastolic - 8462-4 88 mm[Hg] [...] u[iU]/mL Chart Maintenance: Outside labs entered on [facility] - Hematology hemoglobin, blood 12.7 g/dL Lab Report: Prostatic Specific Ag - Chemistry prostate specific antigen 2.72 ng/mL 0.00-4.00 Encounters Code Encounter Date Provider Facility CPT-68776 Level 3 Est. Patient 17:37:10 CDT Rubén Conrad MD [facility] CPT-07016 Level 3 Est. Patient 17:10:39 CDT Rubén Conrad MD [facility] CPT-03471 Level 3 Est. Patient 11:04:56 CDT Rubén Conrad MD [facility] CPT-81482 Level 3 Est. Patient 17:00:26 CHOKER SETTER Rubén Conrad MD [facility] CPT-69456 Level 3 Est. Patient 11:52:39 CDT Rubén Conrad MD [facility] CPT-99207 Level 3 Est. Patient 13:37:32 CHOKER SETTER Rubén Conrad MD [facility] CPT-85727 Level 3 Est. Patient 11:47:31 CHOKER SETTER Rubén Conrad MD [facility] Procedures Code Procedure Name Date Entry Date Standard Description CPT-11587 Bladder Scan 17:10:39 CDT CPT-16125 Bladder Scan 11:04:56 CDT CPT-89214 Urine Dip (Floor Use Only) 11:04:55 CDT CPT-26800 Bladder Scan 17:00:26 CHOKER SETTER CPT-23305 Bladder Scan 11:52:39 CDT CPT-49234 Bladder Scan 13:37:32 CHOKER SETTER CPT-06625 Bladder Scan 11:47:31 CHOKER SETTER
--- OUTSIDE RECORDS SUMMARY | 2018-07-14 23:34 | XMS REPORT ---
Author Author [facility] Medical Staff Organization [facility] Address [address] [place] [id number] Phone [phone] Care Team Providers Care Clinical Dietitian Name Role Phone TRUNG BLANCAS, FITO PP [phone] Summary purpose TRANSITION OF CARE AUTO GENERATION [...]
--- OUTSIDE RECORDS SUMMARY | 2018-07-14 23:34 | XMS REPORT ---
Author Author [facility] Medical Staff Organization [place] [facility] Address [address] [place] [id number] Phone [phone] Care Team Providers Care Supervisor Contact Lens Name Role Phone TRUNG BLANCAS, FITO PP [phone] Summary purpose TRANSITION OF CARE AUTO GENERATION [...]
--- OUTSIDE RECORDS SUMMARY | 2018-07-14 23:34 | XMS REPORT ---
Author Author [facility] Medical Staff Organization [facility] Address [address] [place] [id number] Phone [phone] Care Team Providers Care Inspector Line Name Role Phone TRUNG BLANCAS, FITO PP [phone] Summary purpose TRANSITION OF CARE AUTO GENERATION [...]
--- OUTSIDE RECORDS SUMMARY | 2018-07-14 23:34 | XMS REPORT ---
Author Author [email or web address] Medical Staff Organization [facility] Address [address] [place] [id number] Phone [phone] Care Team Providers Care Audio/Video Engineer Name Role Phone TRUNG BLANCAS, FITO PP [phone] Summary purpose TRANSITION OF CARE AUTO GENERATION [...]
--- OUTSIDE RECORDS SUMMARY | 2018-07-14 23:34 | XMS REPORT ---
Author Author [facility] Medical Staff Organization [facility] Address [address] [place] [id number] Phone [phone] Care Team Providers Care Form Setter Supervisor Name Role Phone FITO NINO MD PP [phone] Summary purpose TRANSITION OF CARE AUTO GENERATION Chief Complaint and Reason for Visit Admit Diagnosis 1 JOINT PAIN-L/LEG Problem list No authorized problems tracked for [...] tests and/or laboratory data RESULTS Radiology Results [id number]:18:00 KNEE XRAY - 3 VIEW PACs Image DATE OF EXAM: Jan 23 2014 RAD 0953-KNEE XRAY-3 VIEW- RIGHT: RADIOLOGY REPORT DATE OF SERVICE:01/23/14 HISTORY:Right knee pain. RIGHT KNEE 3 VIEWS 1140 HOURS There is narrowing of the medial compartment. There is no fracture. There has been prior internal fixation of the lateral proximal tibia with two large metallic demetra. There is calcification at the patella and thickening of the distal patellar tendon. IMPRESSION:Old postsurgical changes involving the proximal lateral tibia. Medial compartmental degenerative narrowing. Patellar tendon thickening with calcification suggesting tendinosis. MD EMRE Jaimes/pb103/26/2013 12:21:00 / 01/23/2014 12:30:59 cc:Dr. Fito Nino This document has been electronically Signed by: On: DATE OF EXAM: Jan 23 2014 RAD 0953-KNEE XRAY-3 VIEW- RIGHT: RADIOLOGY REPORT DATE OF SERVICE:01/23/14 HISTORY:Right knee pain. RIGHT KNEE 3 VIEWS 1140 HOURS There is narrowing of the medial compartment. There is no fracture. There has been prior internal fixation of the lateral proximal tibia with two large metallic demetra. There is calcification at the patella and thickening of the distal patellar tendon. IMPRESSION:Old postsurgical changes involving the proximal lateral tibia. Medial compartmental degenerative narrowing. Patellar tendon thickening with calcification suggesting tendinosis. Toy Skinner MD MWD/pb103/26/2013 12:21:00 / 01/23/2014 12:30:59 cc:Dr. Fito Nino This document has been electronically Signed by: TOY SKINNER On: Jan 23 20141:18P Result Amended on 2014-01-23 at 13:18:20. Previous status was CT. History of procedures Procedure Code Code Type Description Date Performed Performing Physician 60754 CPT-4 X-RAY EXAM OF KNEE, 3 01-23-2014 FITO NINO Functional status No functional or [...]
--- OUTSIDE RECORDS SUMMARY | 2018-07-14 23:34 | XMS REPORT ---
Author Author [facility] Medical Staff Organization [facility] Address [address] [place] [id number] Phone [phone] Care Team Providers Care Health Club Attendant Name Role Phone TRUNG BLANCAS, FITO PP [phone] Summary purpose TRANSITION OF CARE AUTO GENERATION [...]
--- OUTSIDE RECORDS SUMMARY | 2018-07-14 23:35 | XMS REPORT ---
Author Author [facility] Medical Staff Organization [facility] Address [address] [id number] Phone [phone] Care Team Providers Care Coat Baster Name Role Phone FITO NINO MD PP [phone] Summary purpose TRANSITION OF CARE AUTO GENERATION [...] tests and/or laboratory data RESULTS Radiology Results [id number]:18:00 KNEE XRAY - 3 VIEW PACs Image [...] with calcification suggesting tendinosis. Toy Skinner MD MWJeff/pb103/26/2013 12:21:00 / 01/23/2014 12:30:59 cc:Dr. Fito Nino [...] on 2014-01-23 at 13:18:20. Previous status was [place]. History of procedures No procedures recorded for [...]
--- OUTSIDE RECORDS SUMMARY | 2018-07-14 23:37 | XMS REPORT | Continuity of Care Document ---
Author Organization Unknown Address Unknown Allergies Active Description Code Type Severity Reaction Onset Reported/Identified Relationship to Patient Clinical Status Yes Demerol 3853 Drug Allergy Moderate hypotension, "gets very sick" Yes Shellfish [id number] Drug Allergy Severe Hives Yes Demerol HCl Drug N/A N/A Yes shell fish Drug N/A lips numb and swelling Yes meperidine [id number] Drug Allergy Unknown LOW BP, N/V 09/12/2013 Yes shellfish derived [id number] Drug Allergy Unknown N/A 09/12/2013 Medications There is no data. Problems Date Dx Coded Attending Type Code Diagnosis Diagnosed By 06/25/2009 Ot 530.85 06/25/2009 Ot 553.3 06/25/2009 Ot V12.72 06/25/2009 Ot V67.09 04/21/2010 Ot 250.00 DIAB BRIAN WO COMPL, TYPE II OR UNSPEC TY 04/21/2010 Ot 292.0 DRUG WITHDRAWAL 04/21/2010 Ot 327.23 OBSTRUCTIVE SLEEP APNEA (ADULT) (PEDIATR 04/21/2010 Ot 401.9 HYPERTENSION NOS 04/21/2010 Ot 427.9 CARDIAC DYSRHYTHMIA NOS 04/21/2010 Ot 710.2 SICCA SYNDROME 04/21/2010 Ot 715.36 LOC OSTEOARTH NOS-L/LEG 04/21/2010 Ot 724.00 SPINAL STENOSIS NOS 04/21/2010 Ot 729.1 MYALGIA AND MYOSITIS NOS 04/21/2010 Ot 733.00 OSTEOPOROSIS NOS 04/21/2010 Ot V15.82 HISTORY OF TOBACCO USE 04/21/2010 Ot V45.76 ACQRD ABSENCE OF LUNG 05/05/2012 MENG DENG L D 780.60 FEVER NOS 05/05/2012 SHAWN DENGA L D 786.2 COUGH 05/29/2014 FITO NINO 327.23 OBST SLEEP APNEA 05/31/2014 WILLIAM HINDS MD Ot V72.84 05/31/2014 LIZET BLANCAS, WILLIAM Ot V72.84 05/31/2014 LIZET BLANCAS, WILLIAM Ot V72.84 05/31/2014 LIZET BLANCAS, WILLIAM Ot V72.84 05/31/2014 LIZET BLANCAS, WILLIAM Ot V72.84 05/31/2014 LIZET BLANCAS, WILLIAM Ot V72.84 07/19/2014 Ot 424.1 07/19/2014 Ot 515 07/19/2014 Ot 715.36 07/19/2014 Ot 786.05 07/19/2014 Ot 791.9 07/19/2014 Ot V57.1 07/19/2014 Ot V58.66 07/19/2014 Ot V58.69 07/19/2014 Ot V72.63 07/19/2014 Ot V72.81 07/19/2014 Ot V74.8 07/19/2014 Ot 786.6 07/19/2014 Ot 492.8 07/19/2014 Ot 793.11 07/19/2014 CHATO BLANCAS, ALO S Ot 518.89 07/19/2014 CHATO BLANCAS, ALO S Ot 492.8 07/19/2014 CHATO BLANCAS, ALO S Ot 793.11 07/19/2014 SANJAY BLANCAS, LORETTA Parmar Ot 718.56 07/19/2014 SANJAY BLANCAS, LORETTA Parmar Ot V72.63 07/19/2014 SANJAY BLANCAS, LORETTA Parmar Ot V72.81 07/19/2014 SAJNAY BLANCAS, LORETTA Parmar Ot V74.8 07/19/2014 ILEANA ELLIS N Ot 721.3 07/19/2014 LIZET BLANCAS, WILLIAM Ot V72.84 08/10/2014 CHATO BLANCAS, ALO S Ot 416.8 08/10/2014 CHATO BLANCAS, ALO S Ot 492.0 08/10/2014 CHATO BLANCAS, ALO S Ot 515 08/10/2014 CHATO BLANCAS, ALO S Ot 793.11 08/31/2014 CHATO BLANCAS, ALO S Ot 416.8 08/31/2014 CHATO BLANCAS, ALO S Ot 492.0 08/31/2014 CHATO BLANCAS, ALO S Ot 515 08/31/2014 CHATO BLANCAS, ALO S Ot 793.11 10/03/2014 FITO NINO 719.46 JOINT PAIN-L/LEG 10/03/2014 FITO NINO V57.1 PHYSICAL THERAPY NEC 10/09/2014 FITO NINO 719.46 JOINT PAIN-L/LEG 10/09/2014 FITO NINO V57.1 PHYSICAL THERAPY NEC 10/18/2014 FITO NINO 719.46 JOINT PAIN-L/LEG 10/18/2014 FITO NINO V57.1 PHYSICAL THERAPY NEC 10/18/2014 FITO NINO 719.46 JOINT PAIN-L/LEG 10/18/2014 FITO NINO V57.1 PHYSICAL THERAPY NEC 10/23/2014 FITO NINO 719.46 JOINT PAIN-L/LEG 10/23/2014 FITO NINO V57.1 PHYSICAL THERAPY NEC 11/01/2014 LORETTA GRACE MD Ot 272.4 HYPERLIPIDEMIA NEC/NOS 11/01/2014 LORETTA GRACE MD Ot 333.94 RESTLESS LEGS SYNDROME 11/01/2014 LORETTA GRACE MD Ot 401.9 HYPERTENSION NOS 11/01/2014 LORETTA GRACE MD Ot 496 CHR AIRWAY OBSTRUCT NEC 11/01/2014 LORETTA GRACE MD Ot 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 11/01/2014 LORETTA GRACE MD Ot 710.2 SICCA SYNDROME 11/01/2014 LORETTA GRACE MD Ot 716.90 ARTHROPATHY NOS-UNSPEC 11/01/2014 LORETTA GRACE MD Ot 718.56 ANKYLOSIS-LOWER/LEG 11/01/2014 LORETTA GRACE MD Ot 724.00 SPINAL STENOSIS NOS 11/01/2014 LORETTA GRACE MD Ot 729.1 MYALGIA AND MYOSITIS NOS 11/01/2014 LORETTA GRACE MD Ot 780.57 UNSPECIFIED SLEEP APNEA 11/01/2014 LORETTA GRACE MD Ot V43.65 KNEE JOINT REPLACEMENT STATUS 11/01/2014 LORETTA GRACE MD Ot V57.1 PHYSICAL THERAPY NEC 11/01/2014 LORETTA GRACE MD Ot V58.69 OTH MED,LT,CURRENT USE 11/08/2014 JANEEN BLANCAS PHD, SATISH Zelaya Ot 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 11/08/2014 JANEEN BLANCAS PHD, SATISH L Ot 272.4 HYPERLIPIDEMIA NEC/NOS 11/08/2014 JANEEN BLANCAS PHD, SATISH Zelaya Ot 333.94 RESTLESS LEGS SYNDROME 11/08/2014 JANEEN BLANCAS PHD, SATISH L Ot 401.9 HYPERTENSION NOS 11/08/2014 JANEEN BLANCAS PHD, SATISH L Ot 426.9 CONDUCTION DISORDER NOS 11/08/2014 JANEEN BLANCAS PHD, SATISH L Ot 496 CHR AIRWAY OBSTRUCT NEC 11/08/2014 JANEEN BLANCAS PHD, SATISH L Ot 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 11/08/2014 JANEEN BLANCAS PHD, SATISH L Ot 710.2 SICCA SYNDROME 11/08/2014 JANEEN BLANCAS PHD, SATISH L Ot 716.90 ARTHROPATHY NOS-UNSPEC 11/08/2014 JANEEN BLANCAS PHD, SATISH L Ot 718.56 ANKYLOSIS-LOWER/LEG 11/08/2014 JANEEN BLANCAS PHD, SATISH L Ot 724.00 SPINAL STENOSIS NOS 11/08/2014 JANEEN BLANCAS PHD, SATISH L Ot 729.1 MYALGIA AND MYOSITIS NOS 11/08/2014 JANEEN BLANCAS PHD, SATISH L Ot 780.57 UNSPECIFIED SLEEP APNEA 11/08/2014 JANEEN BLANCAS PHD, SATISH L Ot V43.65 KNEE JOINT REPLACEMENT STATUS 11/08/2014 JANEEN BLANCAS PHD, SATISH Zelaya Ot V58.69 OTH MED,LT,CURRENT USE 04/05/2015 MIRLANDE COOPER MD Ot G47.33 04/05/2015 MIRLANDE COOPER MD Ot I47.2 04/05/2015 MIRLANDE COOPER MD Ot I48.0 04/05/2015 MIRLANDE COOPER MD Ot R55 04/25/2015 MIRLANDE COOPER MD Ot G47.33 04/25/2015 MIRLANDE COOPER MD Ot I47.2 04/25/2015 MIRLANDE COOPER MD Ot I48.0 04/25/2015 MIRLANDE COOPER MD Ot R55 05/28/2015 MIRLANDE COOPER MD Ot G47.33 OBSTRUCTIVE SLEEP APNEA (ADULT) (PEDIATR 05/28/2015 MIRLANDE COOPER MD Ot I47.2 VENTRICULAR TACHYCARDIA 05/28/2015 MIRLANDE COOPER MD Ot I48.0 PAROXYSMAL ATRIAL FIBRILLATION 05/28/2015 ALLISON BLANCAS, MIRLANDE Montana Ot R55 SYNCOPE AND COLLAPSE 08/15/2015 Ot 424.1 AORTIC VALVE DISORDER 08/15/2015 Ot 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 08/15/2015 Ot 715.36 LOC OSTEOARTH NOS-L/LEG 08/15/2015 Ot 786.05 SHORTNESS OF BREATH 08/15/2015 Ot 791.9 ABN URINE FINDINGS NEC 08/15/2015 Ot V57.1 PHYSICAL THERAPY NEC 08/15/2015 Ot V58.66 LONG-TERM (CURRENT) USE OF ASPIRIN 08/15/2015 Ot V58.69 OTH MED,LT,CURRENT USE 08/15/2015 Ot V72.63 PRE-PROCEDURAL LABORATORY EXAMINATION 08/15/2015 Ot V72.81 [id number]-ROJ-JUVINUJUL CARDIOVASCULAR 08/15/2015 Ot V74.8 SCREEN-BACTERIAL DIS NEC 08/15/2015 Ot 786.6 CHEST SWELLING/MASS/LUMP 08/15/2015 Ot 492.8 EMPHYSEMA NEC 08/15/2015 Ot 793.11 SOLITARY PULMONARY NODULE 08/15/2015 CHATO BLANCAS, ALO Jeffrey Ot 518.89 OTHER DISEASES OF LUNG, NEC 08/15/2015 ALO REIS MD Ot 492.8 EMPHYSEMA NEC 08/15/2015 ALO REIS MD Ot 793.11 SOLITARY PULMONARY NODULE 08/15/2015 SANJAY BLANCAS, LORETTA Parmar Ot 718.56 ANKYLOSIS-LOWER/LEG 08/15/2015 LORETTA GRACE MD Ot V72.63 PRE-PROCEDURAL LABORATORY EXAMINATION 08/15/2015 LORETTA GRACE MD Ot V72.81 [id number] CARDIOVASCULAR 08/15/2015 LORETTA GRACE MD Ot V74.8 SCREEN-BACTERIAL DIS NEC 08/15/2015 CECIL FARIA, ILEANA N Ot 721.3 LUMBOSACRAL SPONDYLOSIS 08/15/2015 LIZET BLANCAS, WILLIAM Ot V72.84 EXAM PRE-OPERATIVE NOS 08/15/2015 ALO REIS MD Ot 416.8 CHR PULMON HEART DIS NEC 08/15/2015 ALO REIS MD Ot 492.0 EMPHYSEMATOUS BLEB 08/15/2015 ALO REIS MD Ot 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 08/15/2015 ALO REIS MD Ot 793.11 SOLITARY PULMONARY NODULE 08/15/2015 SANJAY BLANCAS, LORETTA Parmar Ot 726.0 ADHESIVE CAPSULIT SHLDER 08/15/2015 SANJAY BLANCAS, LORETTA Parmar Ot V72.83 EXAM PRE-OPERATIVE NEC 08/15/2015 SANJAY BLANCAS, LORETTA Parmar Ot V74.8 SCREEN-BACTERIAL DIS NEC 08/15/2015 JANEEN BLANCAS PHD, SATISH Zelaya Ot 145.9 08/15/2015 JANEEN BLANCAS PHD, SATISH Zelaya Ot 426.9 08/15/2015 ALLISON BLANCAS, MIRLANDE Montana Ot G47.33 OBSTRUCTIVE SLEEP APNEA (ADULT) (PEDIATR 08/15/2015 ALLISON BLANCAS, MIRLANDE Montana Ot I47.2 VENTRICULAR TACHYCARDIA 08/15/2015 ALLISON BLANCAS, MIRLANDE Montana Ot I48.0 PAROXYSMAL ATRIAL FIBRILLATION 08/15/2015 ALLISON BLANCAS, MIRLANDE Montana Ot R55 SYNCOPE AND COLLAPSE 08/17/2015 SCOT HARVEY DO Ot G47.33 OBSTRUCTIVE SLEEP APNEA (ADULT) (PEDIATR 08/17/2015 SCOT HARVEY DO Ot R09.02 HYPOXEMIA 08/17/2015 SCOT HARVEY DO Ot Z87.891 PERSONAL HISTORY OF NICOTINE DEPENDENCE 08/17/2015 SCOT HARVEY DO Ot G47.33 OBSTRUCTIVE SLEEP APNEA (ADULT) (PEDIATR 08/17/2015 SCOT HARVEY DO Ot R09.02 HYPOXEMIA 08/17/2015 SCOT HARVEY DO Ot Z87.891 PERSONAL HISTORY OF NICOTINE DEPENDENCE 09/20/2015 SCOT HARVEY DO Ot G47.33 OBSTRUCTIVE SLEEP APNEA (ADULT) (PEDIATR 09/20/2015 SCOT HARVEY DO Ot R09.02 HYPOXEMIA 09/20/2015 SCOT HARVEY DO Ot Z87.891 PERSONAL HISTORY OF NICOTINE DEPENDENCE 09/27/2015 SCOT HARVEY DO Ot G47.33 OBSTRUCTIVE SLEEP APNEA (ADULT) (PEDIATR 09/27/2015 SCOT HARVEY DO Ot R09.02 HYPOXEMIA 09/27/2015 SCOT HARVEY DO Ot Z87.891 PERSONAL HISTORY OF NICOTINE DEPENDENCE 10/02/2015 SCOT HARVEY DO Ot G47.33 OBSTRUCTIVE SLEEP APNEA (ADULT) (PEDIATR 10/02/2015 SCOT HARVEY DO Ot R09.02 HYPOXEMIA 10/02/2015 SCOT HARVEY DO Ot Z87.891 PERSONAL HISTORY OF NICOTINE DEPENDENCE 10/02/2015 SCOT HARVEY DO Ot Z87.891 PERSONAL HISTORY OF NICOTINE DEPENDENCE 10/02/2015 SCOT HARVEY DO Ot G47.33 OBSTRUCTIVE SLEEP APNEA (ADULT) (PEDIATR 10/02/2015 SCOT HARVEY DO Ot J43.8 OTHER EMPHYSEMA 10/02/2015 SCOT HARVEY DO Ot Z12.2 ENCNTR SCREEN FOR MALIGNANT NEOPLASM OF 10/02/2015 SCOT HARVEY DO Ot Z87.891 PERSONAL HISTORY OF NICOTINE DEPENDENCE 10/02/2015 SCOT HARVEY DO Ot G47.33 OBSTRUCTIVE SLEEP APNEA (ADULT) (PEDIATR 10/02/2015 SCOT HARVEY DO Ot J43.8 OTHER EMPHYSEMA 10/02/2015 SCOT HARVEY DO Ot Z12.2 ENCNTR SCREEN FOR MALIGNANT NEOPLASM OF 10/02/2015 SCOT HARVEY DO Ot Z87.891 PERSONAL HISTORY OF NICOTINE DEPENDENCE 10/03/2015 SCOT HARVEY DO Ot G47.33 OBSTRUCTIVE SLEEP APNEA (ADULT) (PEDIATR 10/03/2015 SCOT HARVEY DO Ot J43.8 OTHER EMPHYSEMA 10/03/2015 SCOT HARVEY DO Ot Z12.2 ENCNTR SCREEN FOR MALIGNANT NEOPLASM OF 10/03/2015 SCOT HARVEY DO Ot Z87.891 PERSONAL HISTORY OF NICOTINE DEPENDENCE 10/08/2015 SCOT HARVEY DO Ot G47.33 OBSTRUCTIVE SLEEP APNEA (ADULT) (PEDIATR 10/08/2015 SCOT HARVEY DO Ot J43.8 OTHER EMPHYSEMA 10/08/2015 SCOT HARVEY DO Ot Z12.2 ENCNTR SCREEN FOR MALIGNANT NEOPLASM OF 10/08/2015 SCOT HARVYE DO Ot Z87.891 PERSONAL HISTORY OF NICOTINE DEPENDENCE 10/11/2015 SCOT HARVEY DO Ot G47.33 OBSTRUCTIVE SLEEP APNEA (ADULT) (PEDIATR 10/11/2015 SCOT HARVEY DO Ot R09.02 HYPOXEMIA 10/11/2015 SCOT HARVEY DO Ot Z87.891 PERSONAL HISTORY OF NICOTINE DEPENDENCE 10/11/2015 Ot 786.6 CHEST SWELLING/MASS/LUMP 10/11/2015 Ot 492.8 EMPHYSEMA NEC 10/11/2015 Ot 793.11 SOLITARY PULMONARY NODULE 10/11/2015 CHATO BLANCAS, ALO S Ot 518.89 OTHER DISEASES OF LUNG, NEC 10/11/2015 CHATO BLANCAS, ALO S Ot 492.8 EMPHYSEMA NEC 10/11/2015 CHATO BLANCAS, ALO S Ot 793.11 SOLITARY PULMONARY NODULE 10/11/2015 SANJAY BLANCAS, LORETTA Parmar Ot 718.56 ANKYLOSIS-LOWER/LEG 10/11/2015 LORETTA GRACE MD Ot V72.63 PRE-PROCEDURAL LABORATORY EXAMINATION 10/11/2015 LORETTA GRACE MD Ot V72.81 [id number]-QCLTRPBEU CARDIOVASCULAR 10/11/2015 LORETTA GRACE MD Ot V74.8 SCREEN-BACTERIAL DIS NEC 10/11/2015 CECIL FARIA, ILEANA Taylor Ot 721.3 LUMBOSACRAL SPONDYLOSIS 10/11/2015 LIZET BLANCAS, WILLIAM Ot V72.84 EXAM PRE-OPERATIVE NOS 10/11/2015 CHATO BLACNAS, ALO S Ot 416.8 CHR PULMON HEART DIS NEC 10/11/2015 ALO REIS MD S Ot 492.0 EMPHYSEMATOUS BLEB 10/11/2015 CHATO BLANCAS, ALO S Ot 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 10/11/2015 CHATO BLANCAS, ALO S Ot 793.11 SOLITARY PULMONARY NODULE 10/11/2015 LORETTA GRACE MD Ot 726.0 ADHESIVE CAPSULIT SHLDER 10/11/2015 LORETTA GRACE MD Ot V72.83 EXAM PRE-OPERATIVE NEC 10/11/2015 LORETTA GRACE MD Ot V74.8 SCREEN-BACTERIAL DIS NEC 10/11/2015 JANEEN BLANCAS PHD, SATISH Zelaya Ot 145.9 10/11/2015 JANEEN BLANCAS PHD, SATISH Zelaya Ot 426.9 10/11/2015 ALLISON BLANCAS, MIRLANDE [place] Ot G47.33 OBSTRUCTIVE SLEEP APNEA (ADULT) (PEDIATR 10/11/2015 MIRLANDE COOPER MD Ot I47.2 VENTRICULAR TACHYCARDIA 10/11/2015 MIRLANDE COOPER MD Ot I48.0 PAROXYSMAL ATRIAL FIBRILLATION 10/11/2015 ALLISON BLANCAS, MIRLANDE Montana Ot R55 SYNCOPE AND COLLAPSE 10/11/2015 SCOT HARVEY DO Ot G47.33 OBSTRUCTIVE SLEEP APNEA (ADULT) (PEDIATR 10/11/2015 SCOT HARVEY DO Ot R09.02 HYPOXEMIA 10/11/2015 SCOT HARVEY DO Ot Z87.891 PERSONAL HISTORY OF NICOTINE DEPENDENCE 10/11/2015 SCOT HARVEY DO Ot G47.33 OBSTRUCTIVE SLEEP APNEA (ADULT) (PEDIATR 10/11/2015 SCOT HARVEY DO Ot J43.8 OTHER EMPHYSEMA 10/11/2015 SCOT HARVEY DO Ot Z12.2 ENCNTR SCREEN FOR MALIGNANT NEOPLASM OF 10/11/2015 SCOT HARVEY DO Ot Z87.891 PERSONAL HISTORY OF NICOTINE DEPENDENCE 10/24/2015 Ot 786.6 CHEST SWELLING/MASS/LUMP 10/24/2015 Ot 492.8 EMPHYSEMA NEC 10/24/2015 Ot 793.11 SOLITARY PULMONARY NODULE 10/24/2015 CHATO BLANCAS, ALO Jeffrey Ot 518.89 OTHER DISEASES OF LUNG, NEC 10/24/2015 ALO REIS MD Ot 492.8 EMPHYSEMA NEC 10/24/2015 ALO REIS MD S Ot 793.11 SOLITARY PULMONARY NODULE 10/24/2015 SANJAY BLANCAS, LORETTA Parmar Ot 718.56 ANKYLOSIS-LOWER/LEG 10/24/2015 LORETTA GRACE MD Ot V72.63 PRE-PROCEDURAL LABORATORY EXAMINATION 10/24/2015 LORETTA GRACE MD Ot V72.81 [id number]-[id number] CARDIOVASCULAR 10/24/2015 LORETTA GRACE MD Ot V74.8 SCREEN-BACTERIAL DIS NEC 10/24/2015 CECIL FARIA, ILEANA Taylor Ot 721.3 LUMBOSACRAL SPONDYLOSIS 10/24/2015 LIZET BLANCAS, WILLIAM Ot V72.84 EXAM PRE-OPERATIVE NOS 10/24/2015 CHATO BLANCAS, ALO S Ot 416.8 CHR PULMON HEART DIS NEC 10/24/2015 ALO REIS MD S Ot 492.0 EMPHYSEMATOUS BLEB 10/24/2015 ALO REIS MD S Ot 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 10/24/2015 ALO REIS MD S Ot 793.11 SOLITARY PULMONARY NODULE 10/24/2015 LORETTA GRACE MD Ot 726.0 ADHESIVE CAPSULIT SHLDER 10/24/2015 LORETTA GRACE MD Ot V72.83 EXAM PRE-OPERATIVE NEC 10/24/2015 LORETTA GRACE MD Ot V74.8 SCREEN-BACTERIAL DIS NEC 10/24/2015 JANEEN BLANCAS PHD, SATISH Zelaya Ot 145.9 10/24/2015 JANEEN BLANCAS PHD, SATISH Zelaya Ot 426.9 10/24/2015 MIRLANDE COOPER MD, Ot G47.33 OBSTRUCTIVE SLEEP APNEA (ADULT) (PEDIATR 10/24/2015 MIRLANDE COOPER MD Ot I47.2 VENTRICULAR TACHYCARDIA 10/24/2015 MIRLANDE COOPER MD Ot I48.0 PAROXYSMAL ATRIAL FIBRILLATION 10/24/2015 MIRLANDE COOPER MD Ot R55 SYNCOPE AND COLLAPSE 10/24/2015 SCOT HARVEY DO Ot G47.33 OBSTRUCTIVE SLEEP APNEA (ADULT) (PEDIATR 10/24/2015 SCOT HARVEY DO Ot R09.02 HYPOXEMIA 10/24/2015 SCOT HARVEY DO Ot Z87.891 PERSONAL HISTORY OF NICOTINE DEPENDENCE 10/24/2015 SCOT HARVEY DO Ot G47.33 OBSTRUCTIVE SLEEP APNEA (ADULT) (PEDIATR 10/24/2015 SCOT HARVEY DO Ot J43.8 OTHER EMPHYSEMA 10/24/2015 SCOT HARVEY DO Ot Z12.2 ENCNTR SCREEN FOR MALIGNANT NEOPLASM OF 10/24/2015 SCOT HARVEY DO, Ot Z87.891 PERSONAL HISTORY OF NICOTINE DEPENDENCE 10/24/2015 RICK TOUSSAINT Ot I47.2 VENTRICULAR TACHYCARDIA 10/24/2015 MIRLANDE COOPER MD Ot I10 ESSENTIAL (PRIMARY) HYPERTENSION 10/24/2015 MIRLANDE COOPER MD Ot I25.10 ATHSCL HEART DISEASE OF [place] CORONARY 10/24/2015 MIRLANDE COOPER MD, Ot I48.0 PAROXYSMAL ATRIAL FIBRILLATION 10/24/2015 MIRLANDE COOPER MD, Ot R55 SYNCOPE AND COLLAPSE 10/24/2015 MIRLANDE COOPER MD Ot Z79.01 RELIEF OPERATOR (CURRENT) USE OF ANTICOAGULANT 10/24/2015 MIRLANDE COOPER MD, Ot Z79.899 OTHER RELIEF OPERATOR (CURRENT) DRUG THERAPY 10/25/2015 RICK TOUSSAINT Ot E78.2 MIXED HYPERLIPIDEMIA 10/25/2015 RICK TOUSSAINT Ot I10 ESSENTIAL (PRIMARY) HYPERTENSION 10/25/2015 RICK TOUSSAINT Ot I47.2 VENTRICULAR TACHYCARDIA 10/25/2015 RICK TOUSSAINT Ot I48.0 PAROXYSMAL ATRIAL FIBRILLATION 10/25/2015 RICK TOUSSAINT Ot E78.2 MIXED HYPERLIPIDEMIA 10/25/2015 RICK TOUSSAINT Ot I10 ESSENTIAL (PRIMARY) HYPERTENSION 10/25/2015 RICK TOUSSAINT Ot I47.2 VENTRICULAR TACHYCARDIA 10/25/2015 RICK TOUSSAINT Ot I48.0 PAROXYSMAL ATRIAL FIBRILLATION 10/26/2015 SCOT HARVEY DO Ot G47.33 OBSTRUCTIVE SLEEP APNEA (ADULT) (PEDIATR 10/26/2015 SCOT HARVEY DO Ot J43.8 OTHER EMPHYSEMA 10/26/2015 SCOT HARVEY DO Ot Z12.2 ENCNTR SCREEN FOR MALIGNANT NEOPLASM OF 10/26/2015 SCOT HARVEY DO Ot Z87.891 PERSONAL HISTORY OF NICOTINE DEPENDENCE 11/16/2015 RICK TOUSSAINT Ot E78.2 MIXED HYPERLIPIDEMIA 11/16/2015 RICK TOUSSAINT Ot I10 ESSENTIAL (PRIMARY) HYPERTENSION 11/16/2015 RICK TOUSSAINT Ot I47.2 VENTRICULAR TACHYCARDIA 11/16/2015 RICK TOUSSAINT Ot I48.0 PAROXYSMAL ATRIAL FIBRILLATION 11/22/2015 MIRLANDE COOPER MD Ot I10 ESSENTIAL (PRIMARY) HYPERTENSION 11/22/2015 MIRLANDE COOPER MD Ot I25.10 ATHSCL HEART DISEASE OF [place] CORONARY 11/22/2015 MIRLANDE COOPER MD Ot I48.0 PAROXYSMAL ATRIAL FIBRILLATION 11/22/2015 MIRLANDE COOPER MD Ot R55 SYNCOPE AND COLLAPSE 11/22/2015 MIRLANDE COOPER MD Ot Z79.01 HALFWAY (CURRENT) USE OF ANTICOAGULANT 11/22/2015 MIRLANDE COOPER MD Ot Z79.899 OTHER HALFWAY (CURRENT) DRUG THERAPY 11/24/2015 MIRLANDE COOPER MD Ot I10 ESSENTIAL (PRIMARY) HYPERTENSION 11/24/2015 MIRLANDE COOPER MD Ot I25.10 ATHSCL HEART DISEASE OF [place] CORONARY 11/24/2015 MIRLANDE COOPER MD Ot I48.0 PAROXYSMAL ATRIAL FIBRILLATION 11/24/2015 ALLISON BLANCAS, MIRLANDE Montana Ot R55 SYNCOPE AND COLLAPSE 11/24/2015 ALLISON BLANCAS, MIRLANDE Montana Ot Z79.01 RELIEF OPERATOR (CURRENT) USE OF ANTICOAGULANT 11/24/2015 ALLISON BLANCAS, MIRLANDE Montana Ot Z79.899 OTHER RELIEF OPERATOR (CURRENT) DRUG THERAPY 12/03/2015 RICK TOUSSAINT Ot E78.2 MIXED HYPERLIPIDEMIA 12/03/2015 RICK TOUSSAINT Ot I10 ESSENTIAL (PRIMARY) HYPERTENSION 12/03/2015 RICK TOUSSAINT Ot I47.2 VENTRICULAR TACHYCARDIA 12/03/2015 RICK TOUSSAINT Ot I48.0 PAROXYSMAL ATRIAL FIBRILLATION 03/18/2016 Ot 786.6 CHEST SWELLING/MASS/LUMP 03/18/2016 Ot 492.8 EMPHYSEMA NEC 03/18/2016 Ot 793.11 SOLITARY PULMONARY NODULE 03/18/2016 ALO REIS MD Ot 518.89 OTHER DISEASES OF LUNG, NEC 03/18/2016 ALO REIS MD Ot 492.8 EMPHYSEMA NEC 03/18/2016 ALO REIS MD Ot 793.11 SOLITARY PULMONARY NODULE 03/18/2016 LORETTA GRACE MD Ot 718.56 ANKYLOSIS-LOWER/LEG 03/18/2016 LORETTA GRACE MD Ot V72.63 PRE-PROCEDURAL LABORATORY EXAMINATION 03/18/2016 LORETTA GRACE MD Ot V72.81 [id number] CARDIOVASCULAR 03/18/2016 LORETTA GRACE MD Ot V74.8 SCREEN-BACTERIAL DIS NEC 03/18/2016 ILEANA ELLIS Ot 721.3 LUMBOSACRAL SPONDYLOSIS 03/18/2016 WILLIAM HINDS MD Ot V72.84 EXAM PRE-OPERATIVE NOS 03/18/2016 ALO REIS MD Ot 416.8 CHR PULMON HEART DIS NEC 03/18/2016 ALO REIS MD Ot 492.0 EMPHYSEMATOUS BLEB 03/18/2016 ALO REIS MD Ot 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 03/18/2016 ALO REIS MD Ot 793.11 SOLITARY PULMONARY NODULE 03/18/2016 LORETTA GRACE MD Ot 726.0 ADHESIVE CAPSULIT SHLDER 03/18/2016 SANJAY BLANCAS, LORETTA Parmar Ot V72.83 EXAM PRE-OPERATIVE NEC 03/18/2016 SANJAY BLANCAS, LORETTA Parmar Ot V74.8 SCREEN-BACTERIAL DIS NEC 03/18/2016 JANEEN BLANCAS PHD, SATISH Zelaya Ot 145.9 03/18/2016 JANEEN BLANCAS PHD, SATISH Zelaya Ot 426.9 03/18/2016 MIRLANDE COOPER MD Ot G47.33 OBSTRUCTIVE SLEEP APNEA (ADULT) (PEDIATR 03/18/2016 MIRLANDE COOPER MD Ot I47.2 VENTRICULAR TACHYCARDIA 03/18/2016 MIRLANDE COOPER MD Ot I48.0 PAROXYSMAL ATRIAL FIBRILLATION 03/18/2016 MIRLANDE COOPER MD Ot R55 SYNCOPE AND COLLAPSE 03/18/2016 SCOT HARVEY DO, Ot G47.33 OBSTRUCTIVE SLEEP APNEA (ADULT) (PEDIATR 03/18/2016 SCOT HARVEY DO Ot R09.02 HYPOXEMIA 03/18/2016 SCOT HARVEY DO Ot Z87.891 PERSONAL HISTORY OF NICOTINE DEPENDENCE 03/18/2016 SCOT HARVEY DO Ot G47.33 OBSTRUCTIVE SLEEP APNEA (ADULT) (PEDIATR 03/18/2016 SCOT HARVEY DO Ot J43.8 OTHER EMPHYSEMA 03/18/2016 SCOT HARVEY DO Ot Z12.2 ENCNTR SCREEN FOR MALIGNANT NEOPLASM OF 03/18/2016 SCOT HARVEY DO Ot Z87.891 PERSONAL HISTORY OF NICOTINE DEPENDENCE 03/18/2016 RICK TOUSSAINT Ot E78.2 MIXED HYPERLIPIDEMIA 03/18/2016 RICK TOUSSAINT Ot I10 ESSENTIAL (PRIMARY) HYPERTENSION 03/18/2016 RICK TOUSSAINT Ot I47.2 VENTRICULAR TACHYCARDIA 03/18/2016 RICK TOUSSAINT Ot I48.0 PAROXYSMAL ATRIAL FIBRILLATION 04/08/2016 NIKIA WANG APRN Ot J40 BRONCHITIS, NOT SPECIFIED ACUTE OR CH 04/11/2016 NIKIA WANG APRN Ot J15.0 PNEUMONIA DUE TO KLEBSIELLA PNEUMONIAE 05/01/2016 NIKIA WANG APRN Ot J40 BRONCHITIS, NOT SPECIFIED ACUTE OR CH 05/01/2016 NIKIA WANG APRN Ot R09.02 HYPOXEMIA 05/01/2016 NIKIA WANG COST ANALYST Ot Z87.891 PERSONAL HISTORY OF NICOTINE DEPENDENCE 06/22/2016 NIKIA WANG COST ANALYST Ot J40 BRONCHITIS, NOT SPECIFIED ACUTE OR CH 06/22/2016 NIKIA WANG COST ANALYST Ot R09.02 HYPOXEMIA 06/22/2016 NIKIA WANG COST ANALYST Ot Z87.891 PERSONAL HISTORY OF NICOTINE DEPENDENCE 06/27/2016 NIKIA WANG COST ANALYST Ot J15.0 PNEUMONIA DUE TO KLEBSIELLA PNEUMONIAE 07/09/2016 NIKIA WANG COST ANALYST Ot J15.0 PNEUMONIA DUE TO KLEBSIELLA PNEUMONIAE 10/02/2016 Ot 786.6 CHEST SWELLING/MASS/LUMP 10/02/2016 Ot 492.8 EMPHYSEMA NEC 10/02/2016 Ot 793.11 SOLITARY PULMONARY NODULE 10/02/2016 ALO REIS MD S Ot 518.89 OTHER DISEASES OF LUNG, NEC 10/02/2016 ALO REIS MD Ot 492.8 EMPHYSEMA NEC 10/02/2016 ALO REIS MD S Ot 793.11 SOLITARY PULMONARY NODULE 10/02/2016 LORETTA GRACE MD Ot 718.56 ANKYLOSIS-LOWER/LEG 10/02/2016 LORETTA GRACE MD Ot V72.63 PRE-PROCEDURAL LABORATORY EXAMINATION 10/02/2016 LORETTA GRACE MD Ot V72.81 MGCA-XTE-OUQRRUCOH CARDIOVASCULAR 10/02/2016 LORETTA GRACE MD Ot V74.8 SCREEN-BACTERIAL DIS NEC 10/02/2016 CECIL FARIA, ILEANA N Ot 721.3 LUMBOSACRAL SPONDYLOSIS 10/02/2016 LIZET BLANCAS, WILLIAM Ot V72.84 EXAM PRE-OPERATIVE NOS 10/02/2016 ALO REIS MD S Ot 416.8 CHR PULMON HEART DIS NEC 10/02/2016 ALO REIS MD S Ot 492.0 EMPHYSEMATOUS BLEB 10/02/2016 ALO REIS MD S Ot 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 10/02/2016 ALO REIS MD S Ot 793.11 SOLITARY PULMONARY NODULE 10/02/2016 LORETTA GRACE MD Ot 726.0 ADHESIVE CAPSULIT SHLDER 10/02/2016 LORETTA GRACE MD Ot V72.83 EXAM PRE-OPERATIVE NEC 10/02/2016 SANJAY BLANCAS, LORETTA Parmar Ot V74.8 SCREEN-BACTERIAL DIS NEC 10/02/2016 JANEEN BLANCAS PHD, SATISH Zelaya Ot 145.9 10/02/2016 JANEEN BLANCAS PHD, SATISH Zelaya Ot 426.9 10/02/2016 MIRLANDE COOPER MD Ot G47.33 OBSTRUCTIVE SLEEP APNEA (ADULT) (PEDIATR 10/02/2016 MIRLANDE COOPER MD Ot I47.2 VENTRICULAR TACHYCARDIA 10/02/2016 MIRLANDE COOPER MD Ot I48.0 PAROXYSMAL ATRIAL FIBRILLATION 10/02/2016 MIRLANDE COOPER MD Ot R55 SYNCOPE AND COLLAPSE 10/02/2016 SCOT HARVEY DO, Ot G47.33 OBSTRUCTIVE SLEEP APNEA (ADULT) (PEDIATR 10/02/2016 SCOT HARVEY DO Ot R09.02 HYPOXEMIA 10/02/2016 SCOT HARVEY DO Ot Z87.891 PERSONAL HISTORY OF NICOTINE DEPENDENCE 10/02/2016 SCOT HARVEY DO, Ot G47.33 OBSTRUCTIVE SLEEP APNEA (ADULT) (PEDIATR 10/02/2016 SCOT HARVEY DO Ot J43.8 OTHER EMPHYSEMA 10/02/2016 SCOT HARVEY DO Ot Z12.2 ENCNTR SCREEN FOR MALIGNANT NEOPLASM OF 10/02/2016 SCOT HARVEY DO, Ot Z87.891 PERSONAL HISTORY OF NICOTINE DEPENDENCE 10/02/2016 RICK TOUSSAINT Ot E78.2 MIXED HYPERLIPIDEMIA 10/02/2016 RICK TOUSSAINT Ot I10 ESSENTIAL (PRIMARY) HYPERTENSION 10/02/2016 RICK TOUSSAINT Ot I47.2 VENTRICULAR TACHYCARDIA 10/02/2016 RICK TOUSSAINT Ot I48.0 PAROXYSMAL ATRIAL FIBRILLATION 10/02/2016 NIKIA WANG APRN Ot J40 BRONCHITIS, NOT SPECIFIED ACUTE OR CH 10/02/2016 Ot J40 BRONCHITIS, NOT SPECIFIED ACUTE OR CH 10/02/2016 Ot R09.02 HYPOXEMIA 10/02/2016 Ot Z87.891 PERSONAL HISTORY OF NICOTINE DEPENDENCE 10/02/2016 NIKIA WANG APRN Ot J15.0 PNEUMONIA DUE TO KLEBSIELLA PNEUMONIAE 10/06/2016 Ot 786.6 CHEST SWELLING/MASS/LUMP 10/06/2016 Ot 492.8 EMPHYSEMA NEC 10/06/2016 Ot 793.11 SOLITARY PULMONARY NODULE 10/06/2016 CHATO BLANCAS, ALO S Ot 518.89 OTHER DISEASES OF LUNG, NEC 10/06/2016 ALO REIS MD Ot 492.8 EMPHYSEMA NEC 10/06/2016 CHATO BLANCAS, ALO S Ot 793.11 SOLITARY PULMONARY NODULE 10/06/2016 SANJAY BLANCAS, LORETTA Parmar Ot 718.56 ANKYLOSIS-LOWER/LEG 10/06/2016 LORETTA GRACE MD Ot V72.63 PRE-PROCEDURAL LABORATORY EXAMINATION 10/06/2016 LORETTA GRACE MD Ot V72.81 QPHC-REN-FNNCALEYZ CARDIOVASCULAR 10/06/2016 LORETTA GRACE MD Ot V74.8 SCREEN-BACTERIAL DIS NEC 10/06/2016 CECIL FARIA, ILEANA Taylor Ot 721.3 LUMBOSACRAL SPONDYLOSIS 10/06/2016 LIZET BLANCAS, WILLIAM Ot V72.84 EXAM PRE-OPERATIVE NOS 10/06/2016 CHATO BLANCAS, ALO Jeffrey Ot 416.8 CHR PULMON HEART DIS NEC 10/06/2016 ALO REIS MD S Ot 492.0 EMPHYSEMATOUS BLEB 10/06/2016 ALO REIS MD Ot 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 10/06/2016 ALO REIS MD Ot 793.11 SOLITARY PULMONARY NODULE 10/06/2016 LORETTA GRACE MD Ot 726.0 ADHESIVE CAPSULIT SHLDER 10/06/2016 LORETTA GRACE MD Ot V72.83 EXAM PRE-OPERATIVE NEC 10/06/2016 LORETTA GRACE MD Ot V74.8 SCREEN-BACTERIAL DIS NEC 10/06/2016 JANEEN BLANCAS PHD, SATISH Zelaya Ot 145.9 10/06/2016 JANEEN BLANCAS PHD, SATISH Zelaya Ot 426.9 10/06/2016 MIRLANDE COOPER MD Ot G47.33 OBSTRUCTIVE SLEEP APNEA (ADULT) (PEDIATR 10/06/2016 MIRLANDE COOPER MD Ot I47.2 VENTRICULAR TACHYCARDIA 10/06/2016 MIRLANDE COOPER MD Ot I48.0 PAROXYSMAL ATRIAL FIBRILLATION 10/06/2016 ALLISON BLANCAS, MIRLANDE [place] Ot R55 SYNCOPE AND COLLAPSE 10/06/2016 SCOT HARVEY DO Ot G47.33 OBSTRUCTIVE SLEEP APNEA (ADULT) (PEDIATR 10/06/2016 CANDICE SCOT Nelson Ot R09.02 HYPOXEMIA 10/06/2016 CANDICESCOT SANFORD DO Ot Z87.891 PERSONAL HISTORY OF NICOTINE DEPENDENCE 10/06/2016 CANDICE DO SCOT Omar Ot G47.33 OBSTRUCTIVE SLEEP APNEA (ADULT) (PEDIATR 10/06/2016 CANDICE MCGEE SCOT Nelson Ot J43.8 OTHER EMPHYSEMA 10/06/2016 CANDICE SCOT Nelson Ot Z12.2 ENCNTR SCREEN FOR MALIGNANT NEOPLASM OF 10/06/2016 CADNICE DO SCOT Nelson Ot Z87.891 PERSONAL HISTORY OF NICOTINE DEPENDENCE 10/06/2016 RICK TOUSSAINT Ot E78.2 MIXED HYPERLIPIDEMIA 10/06/2016 RICK TOUSSAINT Ot I10 ESSENTIAL (PRIMARY) HYPERTENSION 10/06/2016 RICK TOUSSAINT Ot I47.2 VENTRICULAR TACHYCARDIA 10/06/2016 RICK TOUSSAINT Ot I48.0 PAROXYSMAL ATRIAL FIBRILLATION 10/06/2016 NIKIA WANG APRN Ot J40 BRONCHITIS, NOT SPECIFIED ACUTE OR CH 10/06/2016 Ot J40 BRONCHITIS, NOT SPECIFIED ACUTE OR CH 10/06/2016 Ot R09.02 HYPOXEMIA 10/06/2016 Ot Z87.891 PERSONAL HISTORY OF NICOTINE DEPENDENCE 10/06/2016 NIKIA WANG APRN Ot J15.0 PNEUMONIA DUE TO KLEBSIELLA PNEUMONIAE 10/07/2016 NIKIA WANG APRN Ot J43.9 EMPHYSEMA, UNSPECIFIED 10/07/2016 NIKIA WANG APRN Ot J84.9 INTERSTITIAL PULMONARY DISEASE, UNSPECIF 10/31/2016 NIKIA WANG APRN Ot J43.9 EMPHYSEMA, UNSPECIFIED 10/31/2016 NIKIA WANG APRN Ot J84.9 INTERSTITIAL PULMONARY DISEASE, UNSPECIF 11/21/2016 NIKIA WANG APRN Ot J43.9 EMPHYSEMA, UNSPECIFIED 11/21/2016 NIKIA WANG APRN Ot J84.9 INTERSTITIAL PULMONARY DISEASE, UNSPECIF 12/05/2016 Ot 786.6 CHEST SWELLING/MASS/LUMP 12/05/2016 Ot 492.8 EMPHYSEMA NEC 12/05/2016 Ot 793.11 SOLITARY PULMONARY NODULE 12/05/2016 CHATO BLANCAS, ALO S Ot 518.89 OTHER DISEASES OF LUNG, NEC 12/05/2016 ALO REIS MD S Ot 492.8 EMPHYSEMA NEC 12/05/2016 ALO REIS MD S Ot 793.11 SOLITARY PULMONARY NODULE 12/05/2016 LORETTA GRACE MD Ot 718.56 ANKYLOSIS-LOWER/LEG 12/05/2016 LORETTA GRACE MD Ot V72.63 PRE-PROCEDURAL LABORATORY EXAMINATION 12/05/2016 LORETTA GRACE MD Ot V72.81 [id number]-[id number] CARDIOVASCULAR 12/05/2016 LORETTA GRACE MD Ot V74.8 SCREEN-BACTERIAL DIS NEC 12/05/2016 CECIL FARIA, ILEANA N Ot 721.3 LUMBOSACRAL SPONDYLOSIS 12/05/2016 LIZET BLANCAS, WILLIAM Ot V72.84 EXAM PRE-OPERATIVE NOS 12/05/2016 ALO REIS MD S Ot 416.8 CHR PULMON HEART DIS NEC 12/05/2016 ALO REIS MD S Ot 492.0 EMPHYSEMATOUS BLEB 12/05/2016 ALO REIS MD S Ot 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 12/05/2016 ALO REIS MD S Ot 793.11 SOLITARY PULMONARY NODULE 12/05/2016 LORETTA GRACE MD Ot 726.0 ADHESIVE CAPSULIT SHLDER 12/05/2016 LORETTA GRACE MD Ot V72.83 EXAM PRE-OPERATIVE NEC 12/05/2016 LORETTA GRACE MD Ot V74.8 SCREEN-BACTERIAL DIS NEC 12/05/2016 JANEEN BLANCAS PHD, SATISH Zelaya Ot 145.9 12/05/2016 JANEEN BLANCAS PHD, SATISH Zelaya Ot 426.9 12/05/2016 MIRLANDE COOPER MD Ot G47.33 OBSTRUCTIVE SLEEP APNEA (ADULT) (PEDIATR 12/05/2016 MIRLANDE COOPER MD Ot I47.2 VENTRICULAR TACHYCARDIA 12/05/2016 MIRLANDE COOPER MD Ot I48.0 PAROXYSMAL ATRIAL FIBRILLATION 12/05/2016 MIRLANDE COOPER MD Ot R55 SYNCOPE AND COLLAPSE 12/05/2016 SCOT HARVEY DO Ot G47.33 OBSTRUCTIVE SLEEP APNEA (ADULT) (PEDIATR 12/05/2016 SCOT HARVEY DO Ot R09.02 HYPOXEMIA 12/05/2016 SCOT HARVEY DO Ot Z87.891 PERSONAL HISTORY OF NICOTINE DEPENDENCE 12/05/2016 SCOT HARVEY DO Ot G47.33 OBSTRUCTIVE SLEEP APNEA (ADULT) (PEDIATR 12/05/2016 SCOT HARVEY DO Ot J43.8 OTHER EMPHYSEMA 12/05/2016 SCOT HARVEY DO Ot Z12.2 ENCNTR SCREEN FOR MALIGNANT NEOPLASM OF 12/05/2016 SCOT HARVEY DO Ot Z87.891 PERSONAL HISTORY OF NICOTINE DEPENDENCE 12/05/2016 RICK TOUSSAINT Ot E78.2 MIXED HYPERLIPIDEMIA 12/05/2016 RICK TOUSSAINT Ot I10 ESSENTIAL (PRIMARY) HYPERTENSION 12/05/2016 RICK TOUSSAINT Ot I47.2 VENTRICULAR TACHYCARDIA 12/05/2016 RICK TOUSSAINT Ot I48.0 PAROXYSMAL ATRIAL FIBRILLATION 12/05/2016 NIKIA WANG APRN Ot J40 BRONCHITIS, NOT SPECIFIED ACUTE OR CH 12/05/2016 NIKIA WANG APRN Ot J43.9 EMPHYSEMA, UNSPECIFIED 12/05/2016 NIKIA WANG APRN Ot J84.9 INTERSTITIAL PULMONARY DISEASE, UNSPECIF 12/05/2016 Ot J40 BRONCHITIS, NOT SPECIFIED ACUTE OR CH 12/05/2016 Ot R09.02 HYPOXEMIA 12/05/2016 Ot Z87.891 PERSONAL HISTORY OF NICOTINE DEPENDENCE 12/05/2016 NIKIA WANG APRN Ot J15.0 PNEUMONIA DUE TO KLEBSIELLA PNEUMONIAE 12/08/2016 RICK TOUSSAINT Ot E11.9 TYPE 2 DIABETES MELLITUS WITHOUT COMPLIC 12/08/2016 RICK TOUSSAINT Ot E78.2 MIXED HYPERLIPIDEMIA 12/08/2016 RICK TOUSSAINT Ot I10 ESSENTIAL (PRIMARY) HYPERTENSION 12/08/2016 RICK TOUSSAINT Ot I47.2 VENTRICULAR TACHYCARDIA 12/08/2016 RICK TOUSSAINT Ot I48.0 PAROXYSMAL ATRIAL FIBRILLATION 12/29/2016 RICK TOUSSAINT Ot E11.9 TYPE 2 DIABETES MELLITUS WITHOUT COMPLIC 12/29/2016 RICK TOUSSAINT Ot E78.2 MIXED HYPERLIPIDEMIA 12/29/2016 HENRY FARIA, RICK Gomez Ot I10 ESSENTIAL (PRIMARY) HYPERTENSION 12/29/2016 HENRY FARIA, RICK Gomez Ot I47.2 VENTRICULAR TACHYCARDIA 12/29/2016 SOLORZANOMARII FARIA, RICK Gomez Ot I48.0 PAROXYSMAL ATRIAL FIBRILLATION 01/14/2017 SOLORZANOMARII FARIA, RICK Gomez Ot E11.9 TYPE 2 DIABETES MELLITUS WITHOUT COMPLIC 01/14/2017 HENRY FARIA RICK Gomez Ot E78.2 MIXED HYPERLIPIDEMIA 01/14/2017 HENRY FARIA, RICK Gomez Ot I10 ESSENTIAL (PRIMARY) HYPERTENSION 01/14/2017 SOLORZANOMARII FARIA, RICK Gomez Ot I47.2 VENTRICULAR TACHYCARDIA 01/14/2017 SOLORZANOMARII FARIA RICK Gomez Ot I48.0 PAROXYSMAL ATRIAL FIBRILLATION 2017 NIKIA WANG APRN Ot G47.33 OBSTRUCTIVE SLEEP APNEA (ADULT) (PEDIATR 2017 NIKIA WANG COST ANALYST Ot R09.02 HYPOXEMIA 03/03/2017 NIKIA WANG COST ANALYST Ot J44.9 CHRONIC OBSTRUCTIVE PULMONARY DISEASE, U 03/03/2017 NIKIA WANG COST ANALYST Ot Z98.890 OTHER SPECIFIED POSTPROCEDURAL STATES 03/27/2017 NIKIA WANG COST ANALYST Ot J44.9 CHRONIC OBSTRUCTIVE PULMONARY DISEASE, U 03/27/2017 NIKIA WANG COST ANALYST Ot Z98.890 OTHER SPECIFIED POSTPROCEDURAL STATES 04/16/2017 NIKIA WANG APRN Ot J44.9 CHRONIC OBSTRUCTIVE PULMONARY DISEASE, U 04/16/2017 NIKIA WANG COST ANALYST Ot Z98.890 OTHER SPECIFIED POSTPROCEDURAL STATES 10/05/2017 CHATO BLANCAS, ALO S Ot 518.89 OTHER DISEASES OF LUNG, NEC 10/05/2017 CHATO BLANCAS, ALO S Ot 492.8 EMPHYSEMA NEC 10/05/2017 CHATO BLANCAS, ALO S Ot 793.11 SOLITARY PULMONARY NODULE 10/05/2017 LORETTA GRACE MD Ot 718.56 ANKYLOSIS-LOWER/LEG 10/05/2017 LORETTA GRACE MD Ot V72.63 PRE-PROCEDURAL LABORATORY EXAMINATION 10/05/2017 LORETTA GRACE MD Ot V72.81 HEMS-[id number] CARDIOVASCULAR 10/05/2017 SANJAY BLANCAS, LORETTA Parmar Ot V74.8 SCREEN-BACTERIAL DIS NEC 10/05/2017 CECIL PA, ILEANA N Ot 721.3 LUMBOSACRAL SPONDYLOSIS 10/05/2017 LIZET BLANCAS, WILLIAM Ot V72.84 EXAM PRE-OPERATIVE NOS 10/05/2017 CHATO BLANCAS, ALO S Ot 416.8 CHR PULMON HEART DIS NEC 10/05/2017 CHATO BLANCAS, ALO S Ot 492.0 EMPHYSEMATOUS BLEB 10/05/2017 CHATO BLANCAS, ALO S Ot 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 10/05/2017 CHATO BLANCAS, ALO S Ot 793.11 SOLITARY PULMONARY NODULE 10/05/2017 SANJAY BLANCAS, LORETTA Parmar Ot 726.0 ADHESIVE CAPSULIT SHLDER 10/05/2017 SANJAY BLANCAS, LORETTA Parmar Ot V72.83 EXAM PRE-OPERATIVE NEC 10/05/2017 SANJAY BLANCAS, LORETTA Parmar Ot V74.8 SCREEN-BACTERIAL DIS NEC 10/05/2017 JANEEN BLANCAS PHD, SATISH Zelaya Ot 145.9 10/05/2017 JANEEN BLANCAS PHD, SATISH Zelaya Ot 426.9 10/05/2017 ALLISON BLANCAS, MIRLANDE Montana Ot G47.33 OBSTRUCTIVE SLEEP APNEA (ADULT) (PEDIATR 10/05/2017 ALLISON BLANCAS, MIRLANDE [place] Ot I47.2 VENTRICULAR TACHYCARDIA 10/05/2017 ALLISON BLANCAS, MIRLANDE [place] Ot I48.0 PAROXYSMAL ATRIAL FIBRILLATION 10/05/2017 ALLISON BLANCAS, MIRLANDE [place] Ot R55 SYNCOPE AND COLLAPSE 10/05/2017 SCOT HARVEY DO Ot G47.33 OBSTRUCTIVE SLEEP APNEA (ADULT) (PEDIATR 10/05/2017 SCOT HARVEY DO Ot R09.02 HYPOXEMIA 10/05/2017 SCOT HARVEY DO Ot Z87.891 PERSONAL HISTORY OF NICOTINE DEPENDENCE 10/05/2017 SCOT HARVEY DO Ot G47.33 OBSTRUCTIVE SLEEP APNEA (ADULT) (PEDIATR 10/05/2017 SCOT HARVEY DO Ot J43.8 OTHER EMPHYSEMA 10/05/2017 SCOT HARVEY DO Ot Z12.2 ENCNTR SCREEN FOR MALIGNANT NEOPLASM OF 10/05/2017 SCOT HARVEY DO Ot Z87.891 PERSONAL HISTORY OF NICOTINE DEPENDENCE 10/05/2017 HENRY FARIA RICK K Ot E78.2 MIXED HYPERLIPIDEMIA 10/05/2017 HENRY FARIA RICK K Ot I10 ESSENTIAL (PRIMARY) HYPERTENSION 10/05/2017 HENRY FARIA RICK Jason Ot I47.2 VENTRICULAR TACHYCARDIA 10/05/2017 HENRY FARIA RICK Jason Ot I48.0 PAROXYSMAL ATRIAL FIBRILLATION 10/05/2017 NIKIA WANG COST ANALYST Ot J40 BRONCHITIS, NOT SPECIFIED ACUTE OR CH 10/05/2017 NIKIA WANG COST ANALYST Ot J43.9 EMPHYSEMA, UNSPECIFIED 10/05/2017 NIKIA WANG COST ANALYST Ot J84.9 INTERSTITIAL PULMONARY DISEASE, UNSPECIF 10/05/2017 Ot J40 BRONCHITIS, NOT SPECIFIED ACUTE OR CH 10/05/2017 Ot R09.02 HYPOXEMIA 10/05/2017 Ot Z87.891 PERSONAL HISTORY OF NICOTINE DEPENDENCE 10/05/2017 NIKIA WANG APRN Ot J15.0 PNEUMONIA DUE TO KLEBSIELLA PNEUMONIAE 10/05/2017 HENRY FARIA RICK K Ot E11.9 TYPE 2 DIABETES MELLITUS WITHOUT COMPLIC 10/05/2017 HENRY FARIA RICK K Ot E78.2 MIXED HYPERLIPIDEMIA 10/05/2017 HENRY FARIA RICK K Ot I10 ESSENTIAL (PRIMARY) HYPERTENSION 10/05/2017 HENRY FARIA RICK Jason Ot I47.2 VENTRICULAR TACHYCARDIA 10/05/2017 HENRY FARIA RICK K Ot I48.0 PAROXYSMAL ATRIAL FIBRILLATION 10/05/2017 NIKIA WANG COST ANALYST Ot J44.9 CHRONIC OBSTRUCTIVE PULMONARY DISEASE, U 10/05/2017 NIKIA WANG COST ANALYST Ot Z98.890 OTHER SPECIFIED POSTPROCEDURAL STATES 10/06/2017 NIKIA WANG COST ANALYST Ot I51.7 CARDIOMEGALY 10/06/2017 NIKIA WANG COST ANALYST Ot J44.9 CHRONIC OBSTRUCTIVE PULMONARY DISEASE, U 10/06/2017 NIKIA WANG COST ANALYST Ot Z98.890 OTHER SPECIFIED POSTPROCEDURAL STATES 11/03/2017 NIKIA WANG COST ANALYST Ot I51.7 CARDIOMEGALY 11/03/2017 NIKIA WANG COST ANALYST Ot J44.9 CHRONIC OBSTRUCTIVE PULMONARY DISEASE, U 11/03/2017 NIKIA WANG APRN Ot Z98.890 OTHER SPECIFIED POSTPROCEDURAL STATES 11/04/2017 SCOT HARVEY DO Ot G47.33 OBSTRUCTIVE SLEEP APNEA (ADULT) (PEDIATR 11/04/2017 SCOT HARVEY DO Ot R09.02 HYPOXEMIA 11/04/2017 SCOT HARVEY DO Ot Z87.891 PERSONAL HISTORY OF NICOTINE DEPENDENCE 11/04/2017 SCOT HARVEY DO Ot G47.33 OBSTRUCTIVE SLEEP APNEA (ADULT) (PEDIATR 11/04/2017 SCOT HARVEY DO Ot J43.8 OTHER EMPHYSEMA 11/04/2017 SCOT HARVEY DO Ot Z12.2 ENCNTR SCREEN FOR MALIGNANT NEOPLASM OF 11/04/2017 SCOT HARVEY DO Ot Z87.891 PERSONAL HISTORY OF NICOTINE DEPENDENCE 11/04/2017 RICK TOUSSAINT Ot E78.2 MIXED HYPERLIPIDEMIA 11/04/2017 RICK TOUSSAINT Ot I10 ESSENTIAL (PRIMARY) HYPERTENSION 11/04/2017 RICK TOUSSAINT Ot I47.2 VENTRICULAR TACHYCARDIA 11/04/2017 RICK TOUSSAINT Ot I48.0 PAROXYSMAL ATRIAL FIBRILLATION 11/04/2017 NIKIA WANG APRN Ot J40 BRONCHITIS, NOT SPECIFIED ACUTE OR CH 11/04/2017 NIKIA WANG APRN Ot J43.9 EMPHYSEMA, UNSPECIFIED 11/04/2017 NIKIA WANG APRN Ot J84.9 INTERSTITIAL PULMONARY DISEASE, UNSPECIF 11/04/2017 Ot J40 BRONCHITIS, NOT SPECIFIED ACUTE OR CH 11/04/2017 Ot R09.02 HYPOXEMIA 11/04/2017 Ot Z87.891 PERSONAL HISTORY OF NICOTINE DEPENDENCE 11/04/2017 NIKIA WANG APRN Ot J15.0 PNEUMONIA DUE TO KLEBSIELLA PNEUMONIAE 11/04/2017 RICK TOUSSAINT Ot E11.9 TYPE 2 DIABETES MELLITUS WITHOUT COMPLIC 11/04/2017 RICK TOUSSAINT Ot E78.2 MIXED HYPERLIPIDEMIA 11/04/2017 RICK TOUSSAINT Ot I10 ESSENTIAL (PRIMARY) HYPERTENSION 11/04/2017 RICK TOUSSAINT Ot I47.2 VENTRICULAR TACHYCARDIA 11/04/2017 RICK TOUSSAINT Ot I48.0 PAROXYSMAL ATRIAL FIBRILLATION 11/04/2017 KATHLEENJIMENA LIRIANOINE Sandra COST ANALYST Ot J44.9 CHRONIC OBSTRUCTIVE PULMONARY DISEASE, U 11/04/2017 KATHLEEN NIKIA E COST ANALYST Ot Z98.890 OTHER SPECIFIED POSTPROCEDURAL STATES 11/04/2017 KATHLEEN NIKIA E COST ANALYST Ot I51.7 CARDIOMEGALY 11/04/2017 KATHLEEN NIKIA E COST ANALYST Ot J44.9 CHRONIC OBSTRUCTIVE PULMONARY DISEASE, U 11/04/2017 KATHLEEN NIKIA E COST ANALYST Ot Z98.890 OTHER SPECIFIED POSTPROCEDURAL STATES 11/19/2017 KATHLEENJIMENANIKIA Sandra COST ANALYST Ot I51.7 CARDIOMEGALY 11/19/2017 KATHLEENJIMENANIKIA Sandra COST ANALYST Ot J44.9 CHRONIC OBSTRUCTIVE PULMONARY DISEASE, U 11/19/2017 KATHLEEN NIKIA E COST ANALYST Ot Z98.890 OTHER SPECIFIED POSTPROCEDURAL STATES 01/13/2018 RICK TOUSSAINT Ot E11.9 TYPE 2 DIABETES MELLITUS WITHOUT COMPLIC 01/13/2018 RICK TOUSSAINT Ot E78.2 MIXED HYPERLIPIDEMIA 01/13/2018 RICK TOUSSAINT Ot I10 ESSENTIAL (PRIMARY) HYPERTENSION 01/13/2018 RICK TOUSSAINT Ot I47.2 VENTRICULAR TACHYCARDIA 01/13/2018 RICK TOUSSAINT Ot I48.0 PAROXYSMAL ATRIAL FIBRILLATION 02/05/2018 JUAN DANIEL ROBLES MD Ot 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 02/05/2018 JUAN DANIEL ROBLES MD Ot E11.9 TYPE 2 DIABETES MELLITUS WITHOUT COMPLIC 02/05/2018 JUAN DANIEL ROBLES MD Ot E78.5 HYPERLIPIDEMIA, UNSPECIFIED 02/05/2018 JUAN DANIEL ROBLES MD Ot G47.33 OBSTRUCTIVE SLEEP APNEA (ADULT) (PEDIATR 02/05/2018 JUAN DANIEL ROBLES MD Ot I10 ESSENTIAL (PRIMARY) HYPERTENSION 02/05/2018 JUAN DANIEL ROBLES MD Ot I48.0 PAROXYSMAL ATRIAL FIBRILLATION 02/05/2018 JUAN DANIEL ROBLES MD Ot J44.9 CHRONIC OBSTRUCTIVE PULMONARY DISEASE, U 02/05/2018 JUAN DANIEL ROBLES MD, Ot M79.7 FIBROMYALGIA 02/05/2018 JUAN DANIEL ROBLES MD, Ot M81.0 AGE-RELATED OSTEOPOROSIS W/O CURRENT PAT 02/05/2018 JUAN DANIEL ROBLES MD, Ot Z79.01 HALFWAY (CURRENT) USE OF ANTICOAGULANT 02/05/2018 JUAN DANIEL ROBLES MD, Ot Z79.899 OTHER RELIEF OPERATOR (CURRENT) DRUG THERAPY 02/05/2018 JUAN DANIEL ROBLES MD, Ot Z87.891 PERSONAL HISTORY OF NICOTINE DEPENDENCE 02/10/2018 JUAN DANIEL ROBLES MD, Ot 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 02/10/2018 JUAN DANIEL ROBLES MD, Ot E11.9 TYPE 2 DIABETES MELLITUS WITHOUT COMPLIC 02/10/2018 JUAN DANIEL ROBLES MD, Ot E78.5 HYPERLIPIDEMIA, UNSPECIFIED 02/10/2018 JUAN DANIEL ROBLES MD, Ot G47.33 OBSTRUCTIVE SLEEP APNEA (ADULT) (PEDIATR 02/10/2018 JUAN DANIEL ROBLES MD, Ot I10 ESSENTIAL (PRIMARY) HYPERTENSION 02/10/2018 JUAN DANIEL ROBLES MD, Ot I48.0 PAROXYSMAL ATRIAL FIBRILLATION 02/10/2018 JUAN DANIEL ROBLES MD, Ot J44.9 CHRONIC OBSTRUCTIVE PULMONARY DISEASE, U 02/10/2018 JUAN DANIEL ROBLES MD, Ot M79.7 FIBROMYALGIA 02/10/2018 JUAN DANIEL ROBLES MD, Ot M81.0 AGE-RELATED OSTEOPOROSIS W/O CURRENT PAT 02/10/2018 JUAN DANIEL ROBLES MD, Ot Z79.01 HALFWAY (CURRENT) USE OF ANTICOAGULANT 02/10/2018 JUAN DANIEL ROBLES MD, Ot Z79.899 OTHER HALFWAY (CURRENT) DRUG THERAPY 02/10/2018 JUAN DANIEL ROBLES MD, Ot Z87.891 PERSONAL HISTORY OF NICOTINE DEPENDENCE 02/12/2018 JUAN DANIEL ROBLES MD, Ot 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 02/12/2018 JUAN DANIEL ROBLES MD, Ot E11.9 TYPE 2 DIABETES MELLITUS WITHOUT COMPLIC 02/12/2018 JUAN DANIEL ROBLES MD, Ot E78.5 HYPERLIPIDEMIA, UNSPECIFIED 02/12/2018 JUAN DANIEL ROBLES MD Ot G47.33 OBSTRUCTIVE SLEEP APNEA (ADULT) (PEDIATR 02/12/2018 JUAN DANIEL ROBLES MD Ot I10 ESSENTIAL (PRIMARY) HYPERTENSION 02/12/2018 XUN MD, CLANCY-YONAS Ot I48.0 PAROXYSMAL ATRIAL FIBRILLATION 02/12/2018 JUAN DANIEL ROBLES MD, Ot J44.9 CHRONIC OBSTRUCTIVE PULMONARY DISEASE, U 02/12/2018 JUAN DANIEL ROBLES MD Ot M79.7 FIBROMYALGIA 02/12/2018 JUAN DANIEL ROBLES MD, Ot M81.0 AGE-RELATED OSTEOPOROSIS W/O CURRENT PAT 02/12/2018 JUAN DANIEL ROBLES MD, Ot Z79.01 HALFWAY (CURRENT) USE OF ANTICOAGULANT 02/12/2018 JUAN DANIEL ROBLES MD, Ot Z79.899 OTHER HALFWAY (CURRENT) DRUG THERAPY 02/12/2018 JUAN DANIEL ROBLES MD, Ot Z87.891 PERSONAL HISTORY OF NICOTINE DEPENDENCE 02/13/2018 RICK TOUSSAINT Ot E11.9 TYPE 2 DIABETES MELLITUS WITHOUT COMPLIC 02/13/2018 RICK TOUSSAINT Ot E78.2 MIXED HYPERLIPIDEMIA 02/13/2018 RICK TOUSSAINT Ot I10 ESSENTIAL (PRIMARY) HYPERTENSION 02/13/2018 RICK TOUSSAINT Ot I47.2 VENTRICULAR TACHYCARDIA 02/13/2018 RICK TOUSSAINT Ot I48.0 PAROXYSMAL ATRIAL FIBRILLATION 02/18/2018 BERNEI BLANCAS, REJI Soto Ot E29.1 TESTICULAR HYPOFUNCTION 02/18/2018 BERNIE BLANCAS, REJI Soto Ot E83.119 HEMOCHROMATOSIS, UNSPECIFIED 03/11/2018 REJI GIBBS MD Ot E29.1 TESTICULAR HYPOFUNCTION 03/11/2018 BERNIE BLANCAS, REJI Soto Ot E83.119 HEMOCHROMATOSIS, UNSPECIFIED 07/01/2018 JUAN DANIEL ROBLES MD Ot 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 07/01/2018 JUAN DANIEL ROBLES MD, Ot E11.9 TYPE 2 DIABETES MELLITUS WITHOUT COMPLIC 07/01/2018 JUAN DANIEL ROBLES MD Ot E78.5 HYPERLIPIDEMIA, UNSPECIFIED 07/01/2018 JUAN DANIEL ROBLES MD Ot G47.33 OBSTRUCTIVE SLEEP APNEA (ADULT) (PEDIATR 07/01/2018 JUAN DANIEL ROBLES MD Ot I10 ESSENTIAL (PRIMARY) HYPERTENSION 07/01/2018 JUAN DANIEL ROBLES MD Ot I48.0 PAROXYSMAL ATRIAL FIBRILLATION 07/01/2018 JUAN DANIEL ROBLES MD, Ot J44.9 CHRONIC OBSTRUCTIVE PULMONARY DISEASE, U 07/01/2018 MARGARET BLANCAS, JUAN DANIEL Caceres M79.7 FIBROMYALGIA 07/01/2018 JUAN DANIEL ROBLES MD, Ot M81.0 AGE-RELATED OSTEOPOROSIS W/O CURRENT PAT 07/01/2018 JUAN DANIEL ROBLES MD, Ot Z79.01 HALFWAY (CURRENT) USE OF ANTICOAGULANT 07/01/2018 JUAN DANIEL ROBLES MD, Ot Z79.899 OTHER HALFWAY (CURRENT) DRUG THERAPY 07/01/2018 JUAN DANIEL ROBLES MD, Ot Z87.891 PERSONAL HISTORY OF NICOTINE DEPENDENCE Procedures Code Description Performed By Performed On 81.54 04/17/2010 89322 ROUTINE VENIPUNCTURE MADL ARN, MENG L 05/05/2012 08812 CHEST X-RAY MADL ARN, MENG L 05/05/2012 85363 COMPLETE CBC W/AUTO DIFF WBC MADL ARN, MENG L 05/05/2012 22860 MYCOPLASMA ANTIBODY MADL ARN, MENG L 05/05/2012 79930 INFLUENZA ASSAY W/OPTIC MADL ARN, MENG L 05/05/2012 49439 THERAPEUTIC EXERCISES 10/03/2014 66075 MANUAL THERAPY 10/03/2014 49186 THERAPEUTIC EXERCISES 10/09/2014 04484 MANUAL THERAPY 10/09/2014 91473 METABOLIC PANEL TOTAL CA 02/23/2015 05433 ASSAY OF VANCOMYCIN 02/23/2015 71019 COMPLETE CBC W/AUTO DIFF WBC 02/23/2015 09154 RBC SED RATE, NONAUTOMATED 02/23/2015 91745 C-REACTIVE PROTEIN 02/23/2015 27264 METABOLIC PANEL TOTAL CA 03/01/2015 67376 ASSAY OF VANCOMYCIN 03/01/2015 94292 COMPLETE CBC W/AUTO DIFF WBC 03/01/2015 68869 RBC SED RATE, NONAUTOMATED 03/01/2015 37405 C-REACTIVE PROTEIN 03/01/2015 85751 PT EVALUATION 05/22/2015 07235 THERAPEUTIC EXERCISES 05/22/2015 G8978 MOBILITY CURRENT STATUS 05/22/2015 G8979 MOBILITY GOAL STATUS 05/22/2015 80818 ROUTINE VENIPUNCTURE 05/30/2015 13596 COMPREHEN METABOLIC PANEL 05/30/2015 62906 ASSAY THYROID STIM HORMONE 05/30/2015 19285 PT EVALUATION 06/04/2015 94085 THERAPEUTIC EXERCISES 06/04/2015 G8978 MOBILITY CURRENT STATUS 06/04/2015 G8979 MOBILITY GOAL STATUS 06/04/2015 Results Test Result Range COMPLETE BLOOD COUNT - 05/05/12 11:33 Platelet 230 10^3u 142-424 MPV 10.1 FL 9.4-12.4 Phelps # 2.04 10^3u 0.0-1.0 RBC 5.08 10^6u 4.04-6.13 Phelps % 15.7 % 0-12 RDW 15.9 % 11.6-14.8 Neut # 9.11 10^3u 2.0-6.9 Neut % 70.2 % 37-80 WBC 12.99 10^3u 4.60-10.20 MCV 89.6 FL 80.0-97.0 Baso # 0.03 10^3u 0.0-0.1 Baso % 0.2 % 0-2 Eos # 0.03 10^3u 0-7 Eos % 0.2 % 0.0-0.7 Lymph % 13.7 % 10-50 MCHC 34.5 G/DL 31.8-35.4 MCH 30.9 PG 27.0-31.2 Lymph # 1.78 10^3u 0.6-3.4 HGB 15.7 G/DL 12.2-18.1 HCT 45.5 % 37.7-53.7 Mycoplasma Antibody - 05/05/12 11:33 Mycoplasma Antibody NEG Negative Influenza A B - 05/05/12 11:33 Influenza A NEG Negative Influenza B NEG Negative CREAS - 06/12/14 00:00 CREA 1.21 MG/DL 0.6-1.3 EGFR 59 eGFR >=60 D DIMER - 10/03/14 00:00 DDIM 2100 NG/ML 0-400 SEDR - 10/03/14 00:00 SEDR 8 0-20 CREAS - 10/03/14 00:00 CREA 0.97 MG/DL 0.6-1.3 EGFR 76 eGFR >=60 CBC WITH DIFF - 01/26/15 00:00 BASO% 1.3 % 0-2 EOS% 2.9 % 0-7.0 HCT 38.3 % 41.9-52.0 HGB 12.3 G/DL 13.0-18.0 LYMPH% 11.4 % 20-40 MCH 30.4 PG 27-31 MCHC 32.1 G/DL 33-37 MCV 94.6 FL 80-94 MONO% 9.1 % 0-10.0 MPV 9.6 FL 7.3-10.4 NEUTRO% 74.4 % 40-70 PLT 343 10^3u 130-400 RBC 4.1 10^6u 4.7-6.1 RDW 15.4 % 11.5-15.5 WBC 8.6 10^3u 4.8-10.8 NEUTRO# 6.4 10^3u 1.5-7.5 LYMPH# 1.0 10^3u 0.9-4.0 MONO# 0.8 10^3u 0-0.8 EOS# 0.3 10^3u 0-0.6 BASO# 0.1 10^3u 0-0.1 SEDR - 01/26/15 00:00 SEDR 28 0-20 IMM GRANULOCYTE % 0.9 % IMM GRANULOCYTE # 0.1 10^3u 0-5 VANCOT - 01/26/15 00:00 VANCOT 12.2 UG/ML 10-22 BMP - 01/26/15 00:00 BCR 18.9 10-20 BUN 18 MG/DL 7-18 CA 8.6 MG/DL 8.4-10.2 CL 105 MEQ/L 98-107 CO2 25.0 MEQ/L 22-28 CREA 0.95 MG/DL 0.6-1.3 EGFR 78 eGFR >=60 GLU 132 MG/DL 70-105 K 4.3 MEQ/L 3.5-5.1 NA 138 MEQ/L 134-145 OSMSC 279.4 MOSML 280-300 Anion Gap 8.0 8-16 CRP - 01/26/15 00:00 CRP 7.4 MG/DL 0-1 CBC WITH DIFF - 01/30/15 00:00 BASO% 1.5 % 0-2 EOS% 3.3 % 0-7.0 HCT 38.4 % 41.9-52.0 HGB 12.2 G/DL 13.0-18.0 LYMPH% 12.8 % 20-40 MCH 30.2 PG 27-31 MCHC 31.8 G/DL 33-37 MCV 95.0 FL 80-94 MONO% 8.6 % 0-10.0 MPV 9.5 FL 7.3-10.4 NEUTRO% 72.5 % 40-70 PLT 333 10^3u 130-400 RBC 4.0 10^6u 4.7-6.1 RDW 15.1 % 11.5-15.5 WBC 6.9 10^3u 4.8-10.8 NEUTRO# 5.0 10^3u 1.5-7.5 LYMPH# 0.9 10^3u 0.9-4.0 MONO# 0.6 10^3u 0-0.8 EOS# 0.2 10^3u 0-0.6 BASO# 0.1 10^3u 0-0.1 SEDR - 01/30/15 00:00 SEDR 24 0-20 IMM GRANULOCYTE % 1.3 % IMM GRANULOCYTE # 0.1 10^3u 0-5 BMP - 01/30/15 00:00 BCR 18.4 10-20 BUN 19 MG/DL 7-18 CA 8.5 MG/DL 8.4-10.2 CL 107 MEQ/L 98-107 CO2 26.1 MEQ/L 22-28 CREA 1.03 MG/DL 0.6-1.3 EGFR 71 eGFR >=60 GLU 155 MG/DL 70-105 K 4.1 MEQ/L 3.5-5.1 NA 140 MEQ/L 134-145 OSMSC 284.8 MOSML 280-300 Anion Gap 6.9 8-16 CRP - 01/30/15 00:00 CRP 1.8 MG/DL 0-1 CRP - 02/01/15 00:00 CRP 1.6 MG/DL 0-1 VANCOT - 02/01/15 00:00 VANCOT 14.4 UG/ML 10-22 CMP - 02/01/15 00:00 ALB 2.9 G/DL 3.5-5 ALP 102 IU/L 39-107 ALT 27 IU/L 12-65 AST 34 IU/L 10-42 BCR 18.3 10-20 BUN 17 MG/DL 7-18 CA 8.4 MG/DL 8.4-10.2 CL 104 MEQ/L 98-107 CO2 26.1 MEQ/L 22-28 CREA 0.93 MG/DL 0.6-1.3 EGFR 80 eGFR >=60 GLU 96 MG/DL 70-105 K 4.2 MEQ/L 3.5-5.1 NA 139 MEQ/L 134-145 OSMSC 278.9 MOSML 280-300 TBIL 0.6 MG/DL 0.1-1.0 TP 6.3 G/DL 6.0-8.3 Albumin/Globulin Ratio 0.9 0-8 Anion Gap 8.9 8-16 CBC WITH DIFF - 02/01/15 00:00 BASO% 1.2 % 0-2 EOS% 3.7 % 0-7.0 HCT 37.8 % 41.9-52.0 HGB 12.2 G/DL 13.0-18.0 LYMPH% 12.1 % 20-40 MCH 30.4 PG 27-31 MCHC 32.3 G/DL 33-37 MCV 94.3 FL 80-94 MONO% 9.4 % 0-10.0 MPV 9.4 FL 7.3-10.4 NEUTRO% 72.9 % 40-70 PLT 375 10^3u 130-400 RBC 4.0 10^6u 4.7-6.1 RDW 14.9 % 11.5-15.5 WBC 7.3 10^3u 4.8-10.8 NEUTRO# 5.3 10^3u 1.5-7.5 LYMPH# 0.9 10^3u 0.9-4.0 MONO# 0.7 10^3u 0-0.8 EOS# 0.3 10^3u 0-0.6 BASO# 0.1 10^3u 0-0.1 SEDR - 02/01/15 00:00 SEDR 37 0-20 IMM GRANULOCYTE % 0.7 % IMM GRANULOCYTE # 0.1 10^3u 0-5 CBC WITH DIFF - 02/05/15 00:00 BASO% 1.7 % 0-2 EOS% 5.3 % 0-7.0 HCT 39.6 % 41.9-52.0 HGB 12.7 G/DL 13.0-18.0 LYMPH% 20.0 % 20-40 MCH 30.4 PG 27-31 MCHC 32.1 G/DL 33-37 MCV 94.7 FL 80-94 MONO% 12.6 % 0-10.0 MPV 9.6 FL 7.3-10.4 NEUTRO% 59.9 % 40-70 PLT 308 10^3u 130-400 RBC 4.2 10^6u 4.7-6.1 RDW 15.1 % 11.5-15.5 WBC 5.8 10^3u 4.8-10.8 NEUTRO# 3.5 10^3u 1.5-7.5 LYMPH# 1.2 10^3u 0.9-4.0 MONO# 0.7 10^3u 0-0.8 EOS# 0.3 10^3u 0-0.6 BASO# 0.1 10^3u 0-0.1 SEDR - 02/05/15 00:00 SEDR 44 0-20 IMM GRANULOCYTE % 0.5 % IMM GRANULOCYTE # 0.0 10^3u 0-5 BMP - 02/05/15 00:00 BCR 16.5 10-20 BUN 16 MG/DL 7-18 CA 8.5 MG/DL 8.4-10.2 CL 104 MEQ/L 98-107 CO2 26.4 MEQ/L 22-28 CREA 0.97 MG/DL 0.6-1.3 EGFR 76 eGFR >=60 GLU 76 MG/DL 70-105 K 4.4 MEQ/L 3.5-5.1 NA 138 MEQ/L 134-145 OSMSC 275.6 MOSML 280-300 Anion Gap 7.6 8-16 CRP - 02/05/15 00:00 CRP 0.6 MG/DL 0-1 VANCOT - 02/08/15 00:00 VANCOT 14.3 UG/ML 10-22 BMP - 02/08/15 00:00 BCR 16.0 10-20 BUN 16 MG/DL 7-18 CA 8.5 MG/DL 8.4-10.2 CL 103 MEQ/L 98-107 CO2 27.7 MEQ/L 22-28 CREA 1.00 MG/DL 0.6-1.3 EGFR 73 eGFR >=60 GLU 118 MG/DL 70-105 K 4.4 MEQ/L 3.5-5.1 NA 137 MEQ/L 134-145 OSMSC 276.1 MOSML 280-300 Anion Gap 6.3 8-16 CBC WITH DIFF - 02/08/15 00:00 BASO% 1.4 % 0-2 EOS% 5.3 % 0-7.0 HCT 39.8 % 41.9-52.0 HGB 12.8 G/DL 13.0-18.0 LYMPH% 14.0 % 20-40 MCH 30.5 PG 27-31 MCHC 32.2 G/DL 33-37 MCV 94.8 FL 80-94 MONO% 11.1 % 0-10.0 MPV 9.8 FL 7.3-10.4 NEUTRO% 67.7 % 40-70 PLT 243 10^3u 130-400 RBC 4.2 10^6u 4.7-6.1 RDW 15.1 % 11.5-15.5 WBC 5.7 10^3u 4.8-10.8 NEUTRO# 3.8 10^3u 1.5-7.5 LYMPH# 0.8 10^3u 0.9-4.0 MONO# 0.6 10^3u 0-0.8 EOS# 0.3 10^3u 0-0.6 BASO# 0.1 10^3u 0-0.1 SEDR - 02/08/15 00:00 SEDR 15 0-20 IMM GRANULOCYTE % 0.5 % IMM GRANULOCYTE # 0.0 10^3u 0-5 CRP - 02/08/15 00:00 CRP 0.5 MG/DL 0-1 CBC WITH DIFF - 02/13/15 00:00 BASO% 0.9 % 0-2 EOS% 7.3 % 0-7.0 HCT 40.7 % 41.9-52.0 HGB 13.3 G/DL 13.0-18.0 LYMPH% 14.6 % 20-40 MCH 30.3 PG 27-31 MCHC 32.7 G/DL 33-37 MCV 92.7 FL 80-94 MONO% 13.0 % 0-10.0 MPV 10.3 FL 7.3-10.4 NEUTRO% 63.8 % 40-70 PLT 199 10^3u 130-400 RBC 4.4 10^6u 4.7-6.1 RDW 14.9 % 11.5-15.5 WBC 5.5 10^3u 4.8-10.8 NEUTRO# 3.5 10^3u 1.5-7.5 LYMPH# 0.8 10^3u 0.9-4.0 MONO# 0.7 10^3u 0-0.8 EOS# 0.4 10^3u 0-0.6 BASO# 0.1 10^3u 0-0.1 SEDR - 02/13/15 00:00 SEDR 10 0-20 IMM GRANULOCYTE % 0.4 % IMM GRANULOCYTE # 0.0 10^3u 0-5 BMP - 02/13/15 00:00 BCR 15.7 10-20 BUN 16 MG/DL 7-18 CA 8.8 MG/DL 8.4-10.2 CL 104 MEQ/L 98-107 CO2 26.9 MEQ/L 22-28 CREA 1.02 MG/DL 0.6-1.3 EGFR 72 eGFR >=60 GLU 93 MG/DL 70-105 K 4.3 MEQ/L 3.5-5.1 NA 138 MEQ/L 134-145 OSMSC 276.6 MOSML 280-300 Anion Gap 7.1 8-16 CRP - 02/13/15 00:00 CRP 0.5 MG/DL 0-1 VANCOT - 02/15/15 00:00 VANCOT 16.0 UG/ML 10-22 BMP - 02/15/15 00:00 BCR 18.4 10-20 BUN 19 MG/DL 7-18 CA 8.6 MG/DL 8.4-10.2 CL 105 MEQ/L 98-107 CO2 24.3 MEQ/L 22-28 CREA 1.03 MG/DL 0.6-1.3 EGFR 71 eGFR >=60 GLU 109 MG/DL 70-105 K 4.1 MEQ/L 3.5-5.1 NA 139 MEQ/L 134-145 OSMSC 280.4 MOSML 280-300 Anion Gap 9.7 8-16 CBC WITH DIFF - 02/15/15 00:00 BASO% 1.1 % 0-2 EOS% 7.2 % 0-7.0 HCT 40.4 % 41.9-52.0 HGB 13.2 G/DL 13.0-18.0 LYMPH% 14.1 % 20-40 MCH 30.3 PG 27-31 MCHC 32.7 G/DL 33-37 MCV 92.9 FL 80-94 MONO% 12.8 % 0-10.0 MPV 10.6 FL 7.3-10.4 NEUTRO% 64.3 % 40-70 PLT 180 10^3u 130-400 RBC 4.4 10^6u 4.7-6.1 RDW 14.7 % 11.5-15.5 WBC 6.2 10^3u 4.8-10.8 NEUTRO# 4.0 10^3u 1.5-7.5 LYMPH# 0.9 10^3u 0.9-4.0 MONO# 0.8 10^3u 0-0.8 EOS# 0.5 10^3u 0-0.6 BASO# 0.1 10^3u 0-0.1 SEDR - 02/15/15 00:00 SEDR 10 0-20 IMM GRANULOCYTE % 0.5 % IMM GRANULOCYTE # 0.0 10^3u 0-5 CRP - 02/15/15 00:00 CRP 1.1 MG/DL 0-1 CBC WITH DIFF - 02/23/15 00:00 BASO% 1.1 % 0-2 EOS% 5.5 % 0-7.0 HCT 41.0 % 41.9-52.0 HGB 13.6 G/DL 13.0-18.0 LYMPH% 15.5 % 20-40 MCH 30.5 PG 27-31 MCHC 33.2 G/DL 33-37 MCV 91.9 FL 80-94 MONO% 12.7 % 0-10.0 MPV 10.0 FL 7.3-10.4 NEUTRO% 65.0 % 40-70 PLT 199 10^3u 130-400 RBC 4.5 10^6u 4.7-6.1 RDW 14.6 % 11.5-15.5 WBC 5.3 10^3u 4.8-10.8 NEUTRO# 3.4 10^3u 1.5-7.5 LYMPH# 0.8 10^3u 0.9-4.0 MONO# 0.7 10^3u 0-0.8 EOS# 0.3 10^3u 0-0.6 BASO# 0.1 10^3u 0-0.1 SEDR - 02/23/15 00:00 SEDR 18 0-20 IMM GRANULOCYTE % 0.2 % IMM GRANULOCYTE # 0.0 10^3u 0-5 CRP - 02/23/15 00:00 CRP 2.3 MG/DL 0-1 VANCOT - 02/23/15 00:00 VANCOT 17.7 UG/ML 10- BMP - 02/23/15 00:00 BCR 15.2 10-20 BUN 15 MG/DL 7-18 CA 9.0 MG/DL 8.4-10.2 CL 105 MEQ/L 98-107 CO2 23.1 MEQ/L 22-28 CREA 0.99 MG/DL 0.6-1.3 EGFR 74 eGFR >=60 GLU 108 MG/DL 70-105 K 3.5 MEQ/L 3.5-5.1 NA 139 MEQ/L 134-145 OSMSC 278.9 MOSML 280-300 Anion Gap 10.9 8-16 VANCOT - 03/01/15 00:00 VANCOT 18.0 UG/ML 10- BMP - 03/01/15 00:00 BCR 13.5 10-20 BUN 14 MG/DL 7-18 CA 8.7 MG/DL 8.4-10.2 CL 104 MEQ/L 98-107 CO2 24.3 MEQ/L 22-28 CREA 1.04 MG/DL 0.6-1.3 EGFR 70 eGFR >=60 GLU 85 MG/DL 70-105 K 3.6 MEQ/L 3.5-5.1 NA 140 MEQ/L 134-145 OSMSC 279.1 MOSML 280-300 Anion Gap 11.7 8-16 CBC WITH DIFF - 03/01/15 00:00 BASO% 1.2 % 0-2 EOS% 5.2 % 0-7.0 HCT 40.3 % 41.9-52.0 HGB 13.4 G/DL 13.0-18.0 LYMPH% 16.2 % 20-40 MCH 30.5 PG 27-31 MCHC 33.3 G/DL 33-37 MCV 91.8 FL 80-94 MONO% 13.4 % 0-10.0 MPV 9.6 FL 7.3-10.4 NEUTRO% 63.5 % 40-70 PLT 226 10^3u 130-400 RBC 4.4 10^6u 4.7-6.1 RDW 14.4 % 11.5-15.5 WBC 5.7 10^3u 4.8-10.8 NEUTRO# 3.6 10^3u 1.5-7.5 LYMPH# 0.9 10^3u 0.9-4.0 MONO# 0.8 10^3u 0-0.8 EOS# 0.3 10^3u 0-0.6 BASO# 0.1 10^3u 0-0.1 SEDR - 03/01/15 00:00 SEDR 25 0-20 IMM GRANULOCYTE % 0.5 % IMM GRANULOCYTE # 0.0 10^3u 0-5 CRP - 03/01/15 00:00 CRP 2.2 MG/DL 0-1 CBC WITH DIFF - 03/08/15 00:00 BASO% 1.6 % 0-2 EOS% 2.8 % 0-7.0 HCT 42.0 % 41.9-52.0 HGB 14.2 G/DL 13.0-18.0 LYMPH% 19.1 % 20-40 MCH 30.6 PG 27-31 MCHC 33.8 G/DL 33-37 MCV 90.5 FL 80-94 MONO% 13.3 % 0-10.0 MPV 10.1 FL 7.3-10.4 NEUTRO% 62.8 % 40-70 PLT 248 10^3u 130-400 RBC 4.6 10^6u 4.7-6.1 RDW 14.4 % 11.5-15.5 WBC 5.7 10^3u 4.8-10.8 NEUTRO# 3.6 10^3u 1.5-7.5 LYMPH# 1.1 10^3u 0.9-4.0 MONO# 0.8 10^3u 0-0.8 EOS# 0.2 10^3u 0-0.6 BASO# 0.1 10^3u 0-0.1 SEDR - 03/08/15 00:00 SEDR 20 0-20 IMM GRANULOCYTE % 0.4 % IMM GRANULOCYTE # 0.0 10^3u 0-5 BMP - 03/08/15 00:00 BCR 12.8 10-20 BUN 19 MG/DL 7-18 CA 9.2 MG/DL 8.4-10.2 CL 103 MEQ/L 98-107 CO2 24.1 MEQ/L 22-28 CREA 1.48 MG/DL 0.6-1.3 EGFR 47 eGFR >=60 GLU 89 MG/DL 70-105 K 4.1 MEQ/L 3.5-5.1 NA 138 MEQ/L 134-145 OSMSC 277.4 MOSML 280-300 Anion Gap 10.9 8-16 CRP - 03/08/15 00:00 CRP 1.8 MG/DL 0-1 LIPID - 05/10/15 00:00 CHOHDL 3.8 1-3.5 CHOL 153 MG/DL 120-200 HDL 40 MG/DL 32-72 LDL 98 MG/DL 30-100 TRIG 101 MG/DL 35-160 VLDL 20 MG/DL 5-40 HEPATIC PANEL - 05/10/15 00:00 ALB 3.4 G/DL 3.5-5 ALP 138 IU/L 39-107 ALT 20 IU/L 12-65 AST 19 IU/L 10-42 DBIL 0.1 MG/DL 0-0.3 IBILI 0.5 MG/DL 0.1-1.0 TBIL 0.6 MG/DL 0.1-1.0 TP 7.1 G/DL 6.0-8.3 Albumin/Globulin Ratio 0.9 0-8 TSH - 05/30/15 00:00 TSH 3.36 UIUML 0.36-3.74 CMP - 05/30/15 00:00 ALB 3.5 G/DL 3.5-5 ALP 140 IU/L 39-107 ALT 21 IU/L 12-65 AST 21 IU/L 10-42 BCR 12.6 10-20 BUN 13 MG/DL 7-18 CA 8.6 MG/DL 8.4-10.2 CL 103 MEQ/L 98-107 CO2 21.7 MEQ/L 22-28 CREA 1.03 MG/DL 0.6-1.3 EGFR 71 eGFR >=60 GLU 91 MG/DL 70-105 K 4.0 MEQ/L 3.5-5.1 NA 137 MEQ/L 134-145 OSMSC 273.5 MOSML 280-300 TBIL 0.7 MG/DL 0.1-1.0 TP 7.3 G/DL 6.0-8.3 Albumin/Globulin Ratio 0.9 0-8 Anion Gap 12.3 8-16 Sputum Gram stain - 04/10/16 12:10 GRAM STAIN SPUTUM AND MIXED BACTERIAL CAREY NR Bacterial sputum culture - 04/10/16 12:10 Bacterial sputum culture [facility] Arterial blood gas measurement - 10/05/17 11:38 Blood pCO2 33 mm[Hg] 35-45 Blood pO2 67 mm[Hg] 79-93 Arterial blood bicarbonate measurement (moles/volume) 21 mmol/L 23-27 Arterial blood base excess by calculation -3.1 mmol/L -2.5-2.5 Arterial blood oxygen saturation measurement 96 % 94-100 * Inhaled oxygen flow rate 3 NRG Arterial blood pH measurement with patient temperature correction 7.41 7.37-7.43 Arterial blood carbon dioxide, total measurement (moles/volume) 22.0 mmol/L 21.0-31.0 Body site R BRACHIAL NRG Assessment of wrist artery patency prior to arterial puncture POSITIVE NRG Setting of ventilation mode NO NRG Measurement of body temperature 96.8 NRG Complete blood count (CBC) with automated white blood cell (WBC) differential - 02/15/18 12:23 Blood leukocytes automated count (number/volume) 4.7 10*3/uL 4.3-11.0 Blood erythrocytes automated count (number/volume) 4.68 10*6/uL 4.35-5.85 Venous blood hemoglobin measurement (mass/volume) 14.4 g/dL 13.3-17.7 Blood hematocrit (volume fraction) 43 % 40-54 Automated erythrocyte mean corpuscular volume 91 [foz_us] 80-99 Automated erythrocyte mean corpuscular hemoglobin (mass per erythrocyte) 31 pg 25-34 Automated erythrocyte mean corpuscular hemoglobin concentration measurement (mass/volume) 34 g/dL 32-36 Automated erythrocyte distribution width ratio 15.3 % 10.0- 14.5 Automated blood platelet count (count/volume) 204 10*3/uL 130-400 Automated blood platelet mean volume measurement 10.2 [foz_us] 7.4-10.4 Automated blood neutrophils/100 leukocytes 58 % 42-75 Automated blood lymphocytes/100 leukocytes 27 % 12-44 Blood monocytes/100 leukocytes 15 % 0-12 Automated blood eosinophils/100 leukocytes 1 % 0-10 Automated blood basophils/100 leukocytes 0 % 0-10 Blood neutrophils automated count (number/volume) 2.7 10*3 1.8-7.8 Blood lymphocytes automated count (number/volume) 1.2 10*3 1.0-4.0 Blood monocytes automated count (number/volume) 0.7 10*3 0.0- 1.0 Automated eosinophil count 0.0 10*3/uL 0.0-0.3 Automated blood basophil count (count/volume) 0.0 10*3/uL 0.0-0.1 Serum or plasma ferritin measurement (mass/volume) - 02/15/18 12:23 Serum or plasma ferritin measurement (mass/volume) 621.8 % 32.0-356.0 IRON TEST - 02/15/18 12:23 Serum or plasma iron measurement (mass/volume) 190 % 40-180 Serum or plasma testosterone measurement (mass/volume) - 02/15/18 12:23 Testosterone [mass or moles/volume] in serum or plasma 10.24 % 220.91-715.81 Encounters ACCT No. Visit Date/Time Discharge Status Pt. Type Provider Facility Loc./Unit Complaint [id number] 05/05/2012 11:24:00 05/05/2012 11:24:00 DIS Outpatient SHAWN DENGA Garcia [facility] [id number] 02/14/2014 10:36:27 02/14/2014 23:59:59 CLS Outpatient [id number] 02/14/2014 10:36:22 02/14/2014 23:59:59 CLS Outpatient [id number] 02/14/2014 10:36:11 02/14/2014 23:59:59 CLS Outpatient [id number] 02/14/2014 10:34:45 02/14/2014 23:59:59 CLS Outpatient [id number] 02/14/2014 09:00:57 02/14/2014 23:59:59 CLS Outpatient [id number] 02/14/2014 10:34:44 02/14/2014 10:34:44 DIS Outpatient [id number] 02/13/2014 11:21:22 02/13/2014 23:59:59 CLS Outpatient [id number] 02/13/2014 11:21:15 02/13/2014 23:59:59 CLS Outpatient [id number] 02/13/2014 11:19:20 02/13/2014 23:59:59 CLS Outpatient [id number] 05/16/2015 09:54:00 06/04/2015 13:24:00 DIS Outpatient HIRAL SEWELL [facility] PT [id number] 05/30/2015 09:11:00 05/30/2015 09:11:00 DIS Outpatient ADRIAN RICK K [facility] LAB [id number] 05/10/2015 12:07:00 05/10/2015 12:07:00 DIS Outpatient NON STAFF, [facility] LAB [id number] 03/08/2015 10:37:00 03/08/2015 10:37:00 DIS Outpatient ZOE GARZA [facility] [id number] 03/08/2015 00:30:00 03/08/2015 01:18:00 DIS Emergency MARCIE VAZQUEZ [facility] [id number] 03/01/2015 08:49:00 03/01/2015 08:49:00 DIS Outpatient ZOE GARZA [facility] [id number] 02/23/2015 08:51:00 02/23/2015 08:51:00 DIS Outpatient ZOE GARZA [facility] ANGELS [id number] 02/15/2015 09:12:00 02/15/2015 09:12:00 DIS Outpatient ZOE GARZA [facility] ANGELS [id number] 02/13/2015 11:17:00 02/13/2015 11:17:00 DIS [facility] [id number] 02/08/2015 09:23:00 02/08/2015 09:23:00 DIS Out[facility] [id number] 02/05/2015 11:40:00 02/05/2015 11:40:00 DIS Outpatient ZOE GARZA [facility] ANGELS [id number] 02/01/2015 08:30:00 02/01/2015 08:30:00 DIS Outpatient [facility] [id number] 01/30/2015 09:00:00 01/30/2015 09:00:00 DIS Outpatient ZOE GARZA [facility] [id number] 01/26/2015 08:54:00 01/26/2015 08:54:00 DIS Outpatient NON STAFF, [facility] YOLANDE [id number] 10/10/2014 00:01:00 10/23/2014 08:20:00 DIS Outpatient FITO NINO [facility] PT [id number] 10/18/2014 09:25:00 10/18/2014 09:25:00 DIS Outpatient LORETTA GRACE [facility] RAD [id number] 09/20/2014 12:51:00 10/09/2014 23:59:00 DIS Outpatient FITO NINO [facility] PT [id number] 10/03/2014 11:41:00 10/03/2014 11:41:00 DIS Outpatient FITO NINO [facility] PANACE [id number] 07/11/2014 15:33:00 07/11/2014 23:59:59 CLS Outpatient ALO REIS [facility] RESP [id number] 06/12/2014 08:00:00 06/12/2014 08:00:00 DIS Outpatient LORETTA GRACE [facility] RAD [id number] 05/10/2014 00:01:00 05/13/2014 12:17:00 DIS Outpatient FITO NINO [facility] DME [id number] 04/09/2014 08:33:00 05/09/2014 23:59:00 DIS Outpatient FITO NINO [facility] DME [id number] 03/12/2014 15:33:00 03/12/2014 23:59:59 CLS Outpatient FITO NINO [facility] DME [id number] 02/07/2014 20:52:00 02/08/2014 06:25:00 DIS Inpatient FITO NINO [facility] 2F [id number] 01/23/2014 11:17:00 01/23/2014 11:17:00 DIS Outpatient FITO NINO [facility] RAD [id number] 11/18/2013 15:03:00 11/18/2013 23:59:59 CLS Outpatient FITO NINO [facility] RESP [id number] 06/23/2013 11:54:00 06/23/2013 23:59:59 CLS Outpatient ALO REIS [facility] RESP [id number] 01/08/2015 00:00:00 Document Registration [id number] 01/08/2015 00:00:00 Document Registration [id number] 01/08/2015 00:00:00 Document Registration [id number] 01/08/2015 00:00:00 Document Registration [id number] 01/08/2015 00:00:00 Document Registration [id number] 01/08/2015 00:00:00 Document Registration [id number] 01/08/2015 00:00:00 Document Registration [id number] 01/08/2014 00:00:00 Document Registration [id number] 01/08/2014 00:00:00 Document Registration [id number] 01/08/2014 00:00:00 Document Registration [id number] 01/08/2014 00:00:00 Document Registration [id number] 01/08/2014 00:00:00 Document Registration [id number] 01/08/2014 00:00:00 Document Registration [id number] 01/08/2014 00:00:00 Document Registration [id number] 06/23/2013 11:54:14 Document Registration [id number] 08/19/2016 14:23:03 08/19/2016 23:59:59 DIS Outpatient FITO NINO [facility] [id number] 05/22/2016 10:20:09 05/22/2016 23:59:59 CLS Outpatient FITO NINO [facility] [id number] 03/17/2016 19:12:44 03/17/2016 23:59:59 CLS Outpatient Nikia Wang [facility] LAB [id number] 02/12/2016 08:43:52 02/12/2016 23:59:59 CLS Outpatient HEIDY ANDRADE [facility] [id number] 01/21/2016 09:47:54 01/21/2016 23:59:59 CLS Outpatient FITO NINO [facility] [id number] 05/20/2016 09:27:13 Document Registration [id number] 02/12/2016 09:36:29 Document Registration [id number] 01/21/2016 11:02:34 Document Registration [id number] 06/10/2018 11:07:00 06/10/2018 23:59:59 CLS Outpatient JUAN DANIEL ROBLES MD [facility] ONC [id number] 04/28/2018 08:29:00 04/28/2018 23:59:59 CLS Preadmit NIKIA WANG COST ANALYST [facility] RT BRONCHITIS,DYSPNEA [id number] 02/15/2018 12:06:00 02/15/2018 23:59:59 CLS Outpatient REJI GIBBS MD [facility] LAB HEMOCHROMATOSIS [id number] 01/07/2018 13:20:00 02/10/2018 00:01:00 DIS Outpatient JUAN DANIEL ROBLES MD [facility] ONC [id number] 12/21/2017 09:40:00 12/21/2017 23:59:59 CLS Outpatient RICK TOUSSAINT [facility] CARD DM [id number] 10/05/2017 11:24:00 10/05/2017 23:59:59 CLS Outpatient NIKIA WANG COST ANALYST [facility] RAD COPD,DYSPNEA, [id number] 03/02/2017 11:10:00 03/02/2017 23:59:59 CLS Outpatient NIKIA WANG E COST ANALYST [facility] RAD J44.9,R06.00,R09.02 [id number] 2017 10:00:00 2017 10:27:00 DIS Outpatient NIKIA WANG COST ANALYST [facility] SLEEP G47.33 LESLIE [id number] 12/05/2016 09:50:00 12/05/2016 23:59:59 CLS Outpatient RICK TOUSSAINT [facility] CARD HTN I10 [id number] 10/06/2016 10:18:00 10/06/2016 23:59:59 CLS Outpatient NIKIA WANG COST ANALYST [facility] RAD COPD [id number] 07/10/2016 00:14:00 07/10/2016 23:59:59 CLS Preadmit NIKIA WANG COST ANALYST [facility] LAB KLEBSIELLA PNEUMONIA [id number] 04/10/2016 12:23:00 07/09/2016 00:01:00 DIS Outpatient NIKIA WANG COST ANALYST [facility] LAB KLEBSIELLA PNEUMONIA [id number] 06/05/2016 14:30:00 06/05/2016 23:59:59 CLS Outpatient NIKIA WANG COST ANALYST [facility] PULM BRONCHITIS,HX OF TOBACCO USE,HYPOXIA [id number] 03/18/2016 09:37:00 03/18/2016 23:59:59 CLS Outpatient NIKIA WANG COST ANALYST [facility] LAB BRONCHITIS [id number] 10/24/2015 07:27:00 10/24/2015 23:59:59 CLS Outpatient RICK TOUSSAINT [facility] CARD HTN,NSVT [id number] 10/24/2015 07:43:00 10/24/2015 12:24:00 DIS Outpatient MIRLANDE COOPER MD [facility] CATH NSVT,PAF,LAD [id number] 10/02/2015 11:36:00 10/02/2015 23:59:59 CLS Outpatient SCOT HARVEY DO [facility] RAD LESLIE, HYPOXIA [id number] 08/15/2015 13:52:00 08/15/2015 23:59:59 CLS Outpatient SCOT HARVEY DO [facility] RT HX OF TOBACCO USE, HYPOXIA [id number] 05/29/2015 13:00:00 05/29/2015 23:59:59 CLS Preadmit MIRLANDE COOPER MD [facility] CARD NSVT,PAF,LESLIE,SYNCOPE [id number] 02/27/2015 13:03:00 05/28/2015 00:01:00 DIS Outpatient MIRLANDE COOPER MD [facility] CARD NSVT,PAF,LESLIE,SYNCOPE [id number] 11/09/2014 13:00:00 11/09/2014 23:59:59 CLS Preadmit JANEEN BLANCAS PHD, SATISH Zelaya [facility] CARD ARRYTHMIAS [id number] 11/01/2014 14:09:00 11/08/2014 00:01:00 DIS Outpatient JANEEN BLANCAS PHD, SATISH Zelaya [facility] CARD ARRYTHMIAS [id number] 11/01/2014 06:00:00 11/01/2014 13:55:00 DIS Outpatient LORETTA GRACE MD [facility] SDC LEFT KNEE ADHESIVE CAPSULITIS [id number] 10/26/2014 12:47:00 10/26/2014 23:59:59 CLS Outpatient LORETTA GRACE MD [facility] PREOP LEFT KNEE ADHESIVE CAPSULITIS [id number] 07/20/2014 13:09:00 07/20/2014 23:59:59 CLS Outpatient ALO REIS MD [facility] CARD PULMONARY NODULE BULLOUS EMPHYSEMA [id number] 02/17/2014 05:54:00 02/17/2014 23:59:59 CLS Outpatient WILLIAM HINDS MD [facility] PREOP BARRETTS ESOPHAGUS [id number] 10/06/2013 09:48:00 10/06/2013 23:59:59 CLS Outpatient ILEANA ELLIS [facility] RAD LBP [id number] 09/12/2013 10:11:00 09/12/2013 23:59:59 CLS Outpatient LORETTA GRACE MD [facility] PREOP LEFT KNEE ARTHROFIBROSIS [id number] 06/13/2013 09:50:00 06/13/2013 23:59:59 CLS Outpatient ALO REIS MD [facility] RAD PULMONARY NODULE [id number] 09/13/2012 09:45:00 09/13/2012 23:59:59 CLS Outpatient ALO REIS MD [facility] RAD PULM NODULE [id number] 10/14/2018 10:15:00 PEN Preadmit NIKIA WANG APRN [facility] RAD COPD,DYSPNEA [id number] 06/23/2016 13:00:00 Document Registration [id number] 07/19/2014 10:02:00 Document Registration [id number] 07/19/2014 10:02:00 Document Registration [id number] 07/19/2014 10:02:00 Document Registration [id number] 03/16/2012 09:37:00 Document Registration [id number] 04/09/2010 14:20:00 Document Registration [id number] 06/25/2009 07:58:00 Document Registration [id number] 05/01/2015 15:26:02 ACT Unknown
[2018-07-14 23:54] LABS: ALANINE AMINOTRANSFERASE 15 U/L (0-55); ALBUMIN 4.2 GM/DL (3.2-4.5); ALKALINE PHOSPHATASE 84 U/L (40-136); BILIRUBIN,TOTAL 0.8 MG/DL (0.1-1.0); BUN/CREATININE RATIO 15; CALCIUM 9.7 MG/DL (8.5-10.1); CARBON DIOXIDE 16 MMOL/L (21-32); CHLORIDE 110 MMOL/L (98-107); CREATININE SERUM 1.35 MG/DL (0.60-1.30); GFR ESTIMATED 51; GLUCOSE 128 MG/DL (70-105); MAGNESIUM 1.8 MG/DL (1.8-2.4); SODIUM 140 MMOL/L (135-145); TOTAL PROTEIN 7.2 GM/DL (6.4-8.2)
[2018-07-15] MEDS ORDERED: FUROSEMIDE 40 MG/4 ML INJ (LASIX) IVP ONE (00:30)
[2018-07-15 00:36] VITALS: BP 94/70
--- NOTE | 2018-07-15 06:56 | Diagnostic Imaging Report ---
INDICATION: Congestive heart failure with tachycardia. Upright portable AP view of the chest is obtained with comparison made study of 03/02/2017. FINDINGS: There is mild cardiomegaly. There is probable pulmonary venous congestion. There has been worsening of airspace disease particularly on the right. No pneumothorax is identified. Surgical changes are again noted in the mediastinum. IMPRESSION: Findings are suggestive of background COPD and probable congestive heart failure with mild worsening edema or pneumonitis since previous study. Dictated by: Dictated on workstation # [id number]
== END 2018-07-15 00:43 | disposition home or self-care (01) ==
LOC: EDUNIT# 23:06 → ER 23:07
DX: I48.2 Chronic atrial fibrillation (principal); I11.0 Hypertensive heart disease with heart failure; I50.9 Heart failure, unspecified; N28.9 Disorder of kidney and ureter, unspecified; I25.10 Atherosclerotic heart disease of native coronary artery without angina pectoris; I25.2 Old myocardial infarction; E78.00 Pure hypercholesterolemia, unspecified; K21.9 Gastro-esophageal reflux disease without esophagitis; J43.9 Emphysema, unspecified; M79.7 Fibromyalgia; E11.9 Type 2 diabetes mellitus without complications; Z85.828 Personal history of other malignant neoplasm of skin; Z88.8 Allergy status to other drugs, medicaments and biological substances; Z79.01 Long term (current) use of anticoagulants; Z87.19 Personal history of other diseases of the digestive system; Z79.82 Long term (current) use of aspirin; Z98.890 Other specified postprocedural states; Z90.2 Acquired absence of lung [part of]
CPT/HCPCS: 36415; 71045; 80053; 83735; 83874; 83880; 84484; 85025; 85610; 85730; 93005; 93041; 96374

== ENCOUNTER → 2018-07-22 | Outpatient (CLI) | payer MEDICARE ==
[~2018-07-22] MED LIST changes: +APIX5TAB PO; +BUDE10.2; +GEMF600T8
== END ==
LOC: LAB 09:37
PROVIDERS: ATTEND Family Medicine
DX: E11.9 Type 2 diabetes mellitus without complications (principal); I10 Essential (primary) hypertension
CPT/HCPCS: 36415; 83036

== ENCOUNTER → 2018-07-23 | Outpatient (CLI) | payer MEDICARE ==
[~2018-07-23] VITALS: Ht 180.3 cm; Wt 112.0 kg
[~2018-07-23] MED LIST changes: +CATHETER FLUSH 10 ML SYR IV PRN; +REGADENOSON 0.4 MG/5 ML SYR (LEXISCAN) IV ONE
[2018-07-23 08:12] VITALS: BP 159/100
[2018-07-23 08:13] VITALS: BP 154/100
--- NOTE | 2018-07-23 16:59 | STRESS TEST ---
DATE OF SERVICE: 07/23/2018 LEXISCAN MYOVIEW STRESS TEST REPORT REFERRING PHYSICIAN: Dr. Pruitt. Baseline heart rate is 82. Baseline blood pressure 159/100. Baseline EKG is sinus rhythm with no ischemic changes. SUMMARY: The patient was injected with 10.75 mCi of technetium-99 Myoview and the resting images were obtained. Then, the patient received 0.4 mg of Lexiscan followed by 29.6 mCi of technetium-99 Myoview. Throughout the test, there were no EKG changes. The resting and stress images were reviewed and compared in the short axis, horizontal long axis, and vertical long axis views. Review of the images showed good radiotracer uptake with no significant ischemia or infarction. SSS is 4, SDS is 4, TID value of 1.1. On the gated images, the left ventricle appeared to be normal size with normal contractility. Calculated ejection fraction 68%. CONCLUSION: 1. The patient tolerated Lexiscan well. 2. No significant ischemia or infarction on SPECT images. 3. Normal left ventricular size with normal contractility. Calculated ejection fraction 68%. Job ID: [id number] DocumentID: [id number] Dictated Date: 07/23/2018 14:33:36 [employer] Duty Manager Date: 07/23/2018 16:58:15 Dictated By: MIRLANDE COOPER MD
== END ==
LOC: CARD 06:46
PROVIDERS: ATTEND Physician Assistant
DX: E11.9 Type 2 diabetes mellitus without complications (principal); R06.02 Shortness of breath; I10 Essential (primary) hypertension; I47.1 Supraventricular tachycardia
CPT/HCPCS: 78452; 93017

== ENCOUNTER 2018-08-03 13:49 | Outpatient (RCR) | payer MEDICARE ==
[2018-05-18 13:12] LABS: BASOPHILS % (AUTO) 1 % (0-10); EOSINOPHILS % (AUTO) 1 % (0-10); HEMATOCRIT 52 % (40-54); HEMOGLOBIN 17.6 G/DL (13.3-17.7); LYMPHOCYTES # (AUTO) 1.2 X 10^3 (1.0-4.0); LYMPHOCYTES % (AUTO) 18 % (12-44); MEAN CORPUSCULAR HEMOGLOBIN 34 PG (25-34); MEAN CORPUSCULAR HGB CONC 34 G/DL (32-36); MEAN CORPUSCULAR VOLUME 98 FL (80-99); MEAN PLATELET VOLUME 10.3 FL (7.4-10.4); MONOCYTES # (AUTO) 1.2 X 10^3 (0.0-1.0); MONOCYTES % (AUTO) 17 % (0-12); NEUTROPHILS # (AUTO) 4.3 X 10^3 (1.8-7.8); NEUTROPHILS % (AUTO) 63 % (42-75); PLATELET COUNT 201 10^3/uL (130-400); WHITE BLOOD COUNT 6.7 10^3/uL (4.3-11.0)
[2018-05-18 14:37] LABS: ALANINE AMINOTRANSFERASE 20 U/L (0-55); ALBUMIN 4.1 GM/DL (3.2-4.5); ALKALINE PHOSPHATASE 81 U/L (40-136); BILIRUBIN,TOTAL 0.8 MG/DL (0.1-1.0); BUN/CREATININE RATIO 12; CALCIUM 9.6 MG/DL (8.5-10.1); CARBON DIOXIDE 20 MMOL/L (21-32); CHLORIDE 110 MMOL/L (98-107); CREATININE SERUM 1.11 MG/DL (0.60-1.30); GFR ESTIMATED > 60; GLUCOSE 98 MG/DL (70-105); POTASSIUM 4.5 MMOL/L (3.6-5.0); SODIUM 138 MMOL/L (135-145)
[2018-06-10 11:31] LABS: BASOPHILS # (AUTO) 0.1 10^3/uL (0.0-0.1); BASOPHILS % (AUTO) 1 % (0-10); EOSINOPHILS # (AUTO) 0.1 10^3/uL (0.0-0.3); EOSINOPHILS % (AUTO) 1 % (0-10); HEMATOCRIT 52 % (40-54); HEMOGLOBIN 17.4 G/DL (13.3-17.7); LYMPHOCYTES # (AUTO) 1.1 X 10^3 (1.0-4.0); LYMPHOCYTES % (AUTO) 19 % (12-44); MEAN CORPUSCULAR HEMOGLOBIN 32 PG (25-34); MEAN CORPUSCULAR HGB CONC 33 G/DL (32-36); MEAN CORPUSCULAR VOLUME 95 FL (80-99); MEAN PLATELET VOLUME 10.9 FL (7.4-10.4); MONOCYTES # (AUTO) 0.8 X 10^3 (0.0-1.0); MONOCYTES % (AUTO) 14 % (0-12); NEUTROPHILS # (AUTO) 3.8 X 10^3 (1.8-7.8); NEUTROPHILS % (AUTO) 65 % (42-75); PLATELET COUNT 204 10^3/uL (130-400); RED CELL DISTRIBUTION WIDTH 13.9 % (10.0-14.5); WHITE BLOOD COUNT 5.8 10^3/uL (4.3-11.0)
[2018-06-10 11:47] LABS: ALANINE AMINOTRANSFERASE 16 U/L (0-55); ALBUMIN 4.1 GM/DL (3.2-4.5); ALKALINE PHOSPHATASE 88 U/L (40-136); BILIRUBIN,TOTAL 0.8 MG/DL (0.1-1.0); BUN/CREATININE RATIO 14; CALCIUM 9.5 MG/DL (8.5-10.1); CARBON DIOXIDE 15 MMOL/L (21-32); CHLORIDE 112 MMOL/L (98-107); CREATININE SERUM 1.12 MG/DL (0.60-1.30); GFR ESTIMATED > 60; GLUCOSE 110 MG/DL (70-105); POTASSIUM 4.6 MMOL/L (3.6-5.0); SODIUM 139 MMOL/L (135-145); TOTAL PROTEIN 7.1 GM/DL (6.4-8.2)
[2018-07-22 09:47] LABS: BASOPHILS # (AUTO) 0.1 10^3/uL (0.0-0.1); BASOPHILS % (AUTO) 1 % (0-10); EOSINOPHILS # (AUTO) 0.1 10^3/uL (0.0-0.3); EOSINOPHILS % (AUTO) 1 % (0-10); HEMATOCRIT 48 % (40-54); HEMOGLOBIN 16.3 G/DL (13.3-17.7); LYMPHOCYTES # (AUTO) 1.2 X 10^3 (1.0-4.0); LYMPHOCYTES % (AUTO) 25 % (12-44); MEAN CORPUSCULAR HEMOGLOBIN 31 PG (25-34); MEAN CORPUSCULAR HGB CONC 34 G/DL (32-36); MEAN CORPUSCULAR VOLUME 91 FL (80-99); MEAN PLATELET VOLUME 10.4 FL (7.4-10.4); MONOCYTES # (AUTO) 0.8 X 10^3 (0.0-1.0); MONOCYTES % (AUTO) 16 % (0-12); NEUTROPHILS # (AUTO) 2.7 X 10^3 (1.8-7.8); NEUTROPHILS % (AUTO) 56 % (42-75); PLATELET COUNT 198 10^3/uL (130-400); RED CELL DISTRIBUTION WIDTH 14.8 % (10.0-14.5); WHITE BLOOD COUNT 4.8 10^3/uL (4.3-11.0)
[2018-07-22 10:08] LABS: ALANINE AMINOTRANSFERASE 18 U/L (0-55); ALBUMIN 4.3 GM/DL (3.2-4.5); ALKALINE PHOSPHATASE 79 U/L (40-136); BILIRUBIN,TOTAL 0.9 MG/DL (0.1-1.0); BUN/CREATININE RATIO 17; CALCIUM 9.6 MG/DL (8.5-10.1); CARBON DIOXIDE 20 MMOL/L (21-32); CHLORIDE 111 MMOL/L (98-107); CREATININE SERUM 1.11 MG/DL (0.60-1.30); GFR ESTIMATED > 60; GLUCOSE 95 MG/DL (70-105); POTASSIUM 4.3 MMOL/L (3.6-5.0); SODIUM 137 MMOL/L (135-145); TOTAL PROTEIN 7.2 GM/DL (6.4-8.2)
[~2018-08-03 13:49] MED LIST changes: -CATHETER FLUSH 10 ML SYR IV PRN; -REGADENOSON 0.4 MG/5 ML SYR (LEXISCAN) IV ONE
== END 2018-08-16 | disposition home or self-care (01) ==
LOC: ONC 13:49
PROVIDERS: ATTEND Internal Medicine Hematology & Oncology
DX: D58.2 Other hemoglobinopathies (principal); J44.9 Chronic obstructive pulmonary disease, unspecified; I10 Essential (primary) hypertension; I48.0 Paroxysmal atrial fibrillation; E11.9 Type 2 diabetes mellitus without complications; E78.5 Hyperlipidemia, unspecified; M79.7 Fibromyalgia; G47.33 Obstructive sleep apnea (adult) (pediatric); M81.0 Age-related osteoporosis without current pathological fracture; Z79.01 Long term (current) use of anticoagulants; Z79.899 Other long term (current) drug therapy; Z87.891 Personal history of nicotine dependence
CPT/HCPCS: 36415; 80053; 82668; 82728; 83540; 85025; 99213

== ENCOUNTER → 2018-10-18 | Outpatient (CLI) | payer MEDICARE ==
[~2018-10-18] MED LIST changes: -DULO60CA58 PO; +DULO60CA59 PO; +RT-ALBUTEROL SULF 2.5 MG/3 ML PRE-MIX VIAL INH ONE
--- NOTE | 2018-10-18 15:17 | Diagnostic Imaging Report ---
PROCEDURE: CT chest without contrast. TECHNIQUE: Multiple contiguous axial images were obtained through the chest without the use of intravenous contrast. Auto Exposure Controls were utilized during the CT exam to meet ALARA standards for radiation dose reduction. INDICATION: Shortness of breath. FINDINGS: Comparison is 10/05/2017. The lungs are severely emphysematous. In addition, there is traction bronchiectasis and honeycombing in the lung bases in a pattern suggestive of usual interstitial pneumonia. The degree of bronchial dilation and honeycombing has progressed from the prior exam. Within the scarring in the left upper lobe, there is a new 13 x 11 mm nodule (series 4, image 21). A more inferior and lateral nodular area measuring 8 mm is unchanged (series 4, image 28). No pneumothorax is seen. No pleural effusion. Left atrium is dilated and there has been a mitral valve replacement. No pericardial effusion. Left ventricle is also dilated. Median sternotomy wires and changes of prior aortic cannulation are noted. No axillary or supraclavicular lymphadenopathy. Some prominent mediastinal lymph nodes are likely reactive to the pulmonary disease. There are no suspicious osseous lesions. IMPRESSION: 1. 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 2. New suspicious 13 mm left upper lobe nodule, at a minimum, a three-month followup examination is recommended. Dictated by: Dictated on workstation # [id number]
== END ==
LOC: RT 09:34
PROVIDERS: ATTEND Nurse Practitioner Family
DX: J43.9 Emphysema, unspecified (principal); J40 Bronchitis, not specified as acute or chronic; G47.33 Obstructive sleep apnea (adult) (pediatric); M35.00 Sjogren syndrome, unspecified; Z87.891 Personal history of nicotine dependence; Z98.890 Other specified postprocedural states
CPT/HCPCS: 71250; 94060; 94640; 94726; 94729

== ENCOUNTER 2018-11-02 08:01 | Inpatient (IN) | payer MEDICARE ==
[~2018-11-02] VITALS: Ht 177.8 cm; Wt 110.5 kg
[2018-11-02] VITALS (8 sets, daily range): BP systolic 113–139; BP diastolic 70–109
[~2018-11-02 08:01] MED LIST changes: -BUDE10.2; +BUDE10.2 INH; -GEMF600T8; +GEMF600T8 PO; -RT-ALBUTEROL SULF 2.5 MG/3 ML PRE-MIX VIAL INH ONE
[2018-11-02] MEDS ORDERED: MONT10TA24 PO (09:51)
[2018-11-02] MEDS ORDERED: TAMS0.4C98 PO (10:00)
[2018-11-02] MEDS ORDERED: SILD20TA14 PO (10:00)
[2018-11-02] MEDS ORDERED: TIOT4MIS2 IH (10:00)
[2018-11-02] MEDS ORDERED: TRAM50TA2 PO (10:00)
[2018-11-02] MEDS ORDERED: SOTALOL 80 MG (BETAPACE) TAB PO SCH (10:00)
[2018-11-02] MEDS ORDERED: METO-333 PO (10:00)
[2018-11-02] MEDS ORDERED: PRAV20TA3 PO (10:00)
[2018-11-02] MEDS ORDERED: MELA3TAB PO (10:00)
[2018-11-02] MEDS ORDERED: RT-ALBUINH INH (10:00)
[2018-11-02] MEDS ORDERED: DILT300C52 PO (10:00)
[2018-11-02] MEDS ORDERED: DRON400T2 PO (10:00)
[2018-11-02] MEDS ORDERED: OMEP40CA36 PO (10:00)
[2018-11-02] MEDS ORDERED: LISI-552 PO (10:00)
[2018-11-02] MEDS ORDERED: TEST200V21 INJ (10:09)
--- NOTE | 2018-11-02 10:09 | NUR ---
SPOKE WITH THE PATIENT ABOUT HIS MEDICATIONS. HE HAD A LIST WELL SOME OF HIS BOTTLES AND INHALERS. THE REST OF HIS MEDS WERE IN A PILL BLOOD BANK MANAGER. WE WENT OVER HIS LIST, THE BOTTLES HE HAD, AND THE EXT MED HX. HE STATES HE RECEIVES SAMPLES OF HIS ELIQUIS 5MG BID AND MULTAQ 400MG BID. OTC HE TAKES MELATONIN 3MG 2 AT HS. HE HAS SPIRIVA RESPIMAT WITH HIM, I DO NOT SEE WHERE THIS WAS FILLED RECENTLY AT [facility], HE STATES HE DOES PURCHASE IT BUT HE DOES GET SAMPLES WHEN AVAILABLE. HE ALSO REPORTS HE HAS VENTOLIN ON HAND NEEDED. I DO NOT SEE THIS ON THE EXT MED HX EITHER AND HE DOES NOT HAVE IT WITH HIM BUT I LEFT IT ON THE MED REC REPORTED. HE STATES HE USES 1.5ML OF TESTOSTERONE EVERY 3 WEEKS. I CALLED [facility] TO VERIFY THE DOSE AND THEY HAVE NOT FILLED IT SINCE 03-10-18 - AT THAT TIME IT WAS PRESCRIBED 2.25ML EVERY 2 WEEKS OF THE 200MG. I LEFT IT ON THE MED REC REPORTED BY THE PATIENT AND NOTED THE PAST DUE FILL DATE.
--- NOTE | 2018-11-02 11:45 | NUR ---
1030 PT'S HEART RATE DROPPED INTO THE LOW 30'S, PT ASYMPTOMATIC, NO C/O OF CHEST PAIN, SOA, DIZZINESS, OR WEAKNESS NOTED PT AND CONCERNED ABOUT STARTING NEW MEDICATION. DR KRAFT NOTIFIED AND ORDERS AT THIS TIME TO HOLD OFF ON STARTING NEW MEDICATION. PT AND NOTIFIED.
--- NOTE | 2018-11-02 13:11 | NUR ---
DR KRAFT CALLED NEW ORDERS RECEIVED TO GIVE 40MG SOTOLOL NOW D/C METOPROLOL. HOME MEDICATIONS REVIEWED AND RESTARTED, AND TO CHECK EKG 2 HOURS AFTER SOTOLOL GIVEN AND CALL DR NEWBERRY AT 2100 WITH HEART RATE.
[2018-11-02] MEDS ORDERED: SILDENAFIL CITRATE 50 MG PO PRN (13:15)
[2018-11-02] MEDS ORDERED: TESTOSTERONE CYPIONATE INJ SCH (13:15)
[2018-11-02] MEDS ORDERED: SOTALOL 80 MG (BETAPACE) TAB PO NR (13:15)
[2018-11-02] MEDS ORDERED: RT-ALBUTEROL SULF 2.5 MG/3 ML PRE-MIX VIAL INH PRN (13:30)
--- NOTE | 2018-11-02 15:34 | NUR ---
Initial [employer] visit made by Chaplain Lulú Burleson.
--- NOTE | 2018-11-02 17:24 | History & Physicial-Cardiolgy ---
HPI-Cardiology Cardiology Consultation: Date of Consultation 11/02/18 Date of Admission Attending Physician Omar Pratt MD Admitting Physician Lisa Pruitt MD Consulting Physician Omar PRATT MD HPI: Time Seen by a Provider: 12:00 Chief Complaint: Paroxysmal atrial fibrillation This is a 78-year-old gentleman who follows with Dr. Nur for cardiology. He was referred to in for evaluation and management of atrial fibrillation and nonsustained ventricular tachycardia. The patient has known history of paroxysmal atrial fibrillation for the last few years. He was previously on amiodarone for 2 years and Eliquis for stroke prevention. The patient also developed nonsustained ventricular tachycardia on 11/01/2014. A previous Holter monitor done on 02/28/2015 showed sinus rhythm with occasional PVCs, ventricular bigeminy and PVCs. A short 7 beat run of paroxysmal atrial tachycardia was noted. The patient had an implantable loop recorder done. Echocardiogram shows normal EF with pulmonary hypertension. The patient has history of mitral valve repair with annuloplasty ring in 2009. He has history of hypertension, hyperlipidemia. Heart catheterization in 2009 showed no significant obstructive disease. He also has history of diabetes, oxygen dependent COPD and obstructive sleep apnea. He is been admitted for in-hospital sotalol loading. Review of Systems-Cardiology Review of Systems Constitutional: As described under HPI; No As described under HPI, No no symptoms reported, No chills, No fever, No lightheadedness Eyes: No As described under HPI, No no symptoms reported, No blindness, No blurred vision, No contact lenses, No drainage, No decreased acuity, No foreign body sensation, No pain, No vision change Ears/Nose/Throat: No As described under HPI, No no symptoms reported, No chronic hearing loss, No ear discharge, No ear pain, No nasal drainage, No ulcerations Respiratory: No no symptoms reported; As described under HPI; No As described under HPI, No cough, No orthopnea; shortness of breath; No SOB with excertion Cardiovascular: No no symptoms reported; As described under HPI; No As described under HPI, No chest pain, No edema, No irregular heart rate, No lightheadedness; palpitations Gastrointestinal: No no symptoms reported, No As described under HPI, No abdomen distended, No abdominal pain, No blood streaked bowels, No constipation, No diarrhea, No nausea, No vomiting, No stool coloration changes Genitourinary: No As described under HPI, No burning, No dysuria, No discharge, No frequency, No flank pain, No hematuria, No urgency Skin: No rash, No skin related problems, No ulcerations Psychiatric/Neurological: No anxiety, No depression, No seizure, No focal weakness, No syncope Hematologic: No bleeding abnormalities HAO-Pkvgno-Vifcve Hx Patient Social History Alcohol Use: Denies Use Recreational Drug Use: No (STOPPED SMOKING 15 YEARS AGO) Smoking Status: Former Smoker Former smoker/When Quit: Feb 09, 1999 2nd Hand Smoke Exposure: No Recent Foreign Travel: No Physical Abuse Screen: No Sexual Abuse: No Immunizations Up To Date Tetanus Booster (TDap): Unknown Date of Pneumonia Vaccine: Nov 09, 2012 Past Medical History PMH As described under Assessment. Allergies and Home Medications Allergies Coded Allergies: meperidine (Unverified Allergy, Unknown, LOW BP, N/V, 09/12/13) shellfish derived (Unverified Allergy, Unknown, 09/12/13) Home Medications Albuterol Sulfate 1 Puff Puff, 2 PUFF INH Q4H PRN for SHORTNESS OF BREATH, (Reported) 1 PUFF = 90 MCG Apixaban 5 Mg Tablet, 5 MG PO BID, (Reported) Budesonide/Formoterol Fumarate 10.2 Gm Hfa.aer.ad, 2 PUFF INH BID, (Reported) Diltiazem HCl 300 Mg Cap.er.24h, 300 MG PO HS, (Reported) Dronedarone HCl 400 Mg Tablet, 400 MG PO BID, (Reported) Gemfibrozil 600 Mg Tablet, 600 MG PO BID, (Reported) Lisinopril 20 Mg Tablet, 20 MG PO BID, (Reported) Melatonin 3 Mg Tablet, 6 MG PO HS, (Reported) TAKES 2 (3MG) TABLETS Metoprolol Tartrate 25 Mg Tablet, 25 MG PO BID, (Reported) Montelukast Sodium 10 Mg Tablet, 10 MG PO HS, (Reported) Omeprazole 40 Mg Capsule.dr, 40 MG PO DAILY, (Reported) Pravastatin Sodium 20 Mg Tablet, 20 MG PO HS, (Reported) Sildenafil Citrate 20 Mg Tablet, 50 MG PO DAILY PRN for ED, (Reported) TAKES 2 & 1/2 (20MG) TABLETS Tamsulosin HCl 0.4 Mg Cap, 0.4 MG PO DAILY, (Reported) Testosterone Cypionate 200 Mg/1 Ml Vial, 1.5 ML INJ EVERY 3 WEEKS, (Reported) LAST FILLED 10 ML 03-10-18 Tiotropium [place] 4 Gm Mist.inhal, 2 PUFF IH DAILY, (Reported) Tramadol HCl 50 Mg Tablet, 50-100 MG PO QID PRN for PAIN-MODERATE, (Reported) Patient Home Medication List Home Medication List Reviewed: Yes Physical Exam-Cardiology Physical Exam Vital Signs/I&O 11/02/18 11/02/18 11/02/18 11/02/18 08:23 08:25 08:30 09:00 Pulse 59 172 55 B/P (MAP) 119/109 (112) 113/92 (99) Pulse Ox 94 94 95 O2 Delivery Nasal Cannula Nasal Cannula Nasal Cannula O2 Flow Rate 3.00 3.00 3.00 11/02/18 11/02/18 11/02/18 11/02/18 10:00 11:00 12:00 12:35 Pulse 115 47 51 B/P (MAP) 115/75 (88) 120/74 (89) 116/80 (92) Pulse Ox 97 96 96 96 O2 Delivery Nasal Cannula Nasal Cannula Nasal Cannula Nasal Cannula O2 Flow Rate 3.00 3.00 3.00 3.00 11/02/18 11/02/18 11/02/18 11/02/18 13:00 16:00 16:05 16:09 Temp 36.4 Pulse 55 59 59 Resp 18 B/P (MAP) 122/70 (87) 122/70 (87) Pulse Ox 96 96 O2 Delivery Nasal Cannula Nasal Cannula Nasal Cannula O2 Flow Rate 3.00 3.00 3.00 3.00 Capillary Refill : Constitutional: appears stated age, AAO x 3; No apparent distress; well- developed, well-nourished HEENT: PERRL; No discharge; hearing is well preserved, oral hygience is good; No ulceration, No xanthelasmas are seen Neck: No carotid bruit; carotid pulses are 2 + bilaterally Respiratory: chest is bilaterally symmetric, lungs clear to auscultation Cardiovascular: regular rate-rhythm, S1 and S2 Gastrointestinal: soft, round, audible bowel sounds; No spleenomegaly Rectal: deferred Extremities: normal range of motion, non-tender, normal inspection; No clubbing, No cyanosis; no lower extremity edema bilateral; No significant edema Neurologic/Psychiatric: no motor/sensory deficits, alert, normal mood/affect, oriented x 3, power is 5/5 both on sides Skin: normal color; No rash, No ulcerations ECG Impression ECG Initial ECG Rhythm: Normal Sinus A/P-Cardiology Assessment/Admission Diagnosis Paroxysmal atrial fibrillation, Nonsustained ventricular tachycardia PVCs Admission Status: Inpatient Order (span 2 midnights) Reason for Inpatient Admission: In-hospital sotalol loading requires 72 hours. Plan 1. Paroxysmal atrial fibrillation. The patient will continue Eliquis for oral anti-coagulation therapy. We are pursuing rhythm control strategy therefore he was initially started on multaq but could not afford the medication. His other option is sotalol which requires hospitalization for 72 hours for monitoring QT interval. The patient was bradycardic this morning. He is also on high dose of Cardizem and low-dose of metoprolol. I will start the patient on sotalol 40 mg as first dose and check his QTc interval. We will discontinue metoprolol. We will decrease the dose of Cardizem to 180 mg daily. If his heart rate improves in the evening my plan is to give sotalol 80 mg twice a day. EKG before giving sotalol and 2 hours after each dose. Continue telemetry monitoring as 7 percent of patients can have ventricular tachycardia. 2. Nonsustained ventricular tachycardia history. Sotalol, Cardizem. Normal EF. 3. PVCs, continue current medication. I previously discussed atrial fibrillation ablation with the patient and do not think that he is the best candidate due to his severe oxygen-dependent COPD and sleep apnea. Clinical Quality Measures DVT/VTE Risk/Contraindication: Risk Factor Score Per Nursin RFS Level Per Nursing on Admit: 3=High Other: PT ON ELIQUIS Omar PRATT MD Nov 02, 2018 17:24
[2018-11-02] MEDS ORDERED: PATIENT MAY USE OWN MEDS, ALL PO SCH (17:30)
[2018-11-02] MEDS: RT-ADVAIR HFA 115/21 MCG PER PUFF IH SCH (18:17)
[2018-11-02] MEDS ORDERED: DILTIAZEM 300 MG (CARDIZEM CD) CAP PO SCH (21:00)
--- NOTE | 2018-11-02 21:29 | NUR ---
This RN sent EKG results to Dr. Pratt, order given to give Sotalol 80mg PO. Order given to change patient's Tramadol to 150mg PO HS.
[2018-11-02] MEDS ORDERED: SOTALOL 80 MG (BETAPACE) TAB PO ONE (21:30)
[2018-11-02] MEDS: MELATONIN 3 MG TABLET PO SCH (22:04)
[2018-11-02] MEDS: MONTELUKAST 10 MG (SINGULAIR) TAB PO SCH (22:04)
[2018-11-02] MEDS: lisINopril 20 MG (PRINIVIL) TABLET PO SCH (22:05)
[2018-11-02] MEDS: GEMFIBROZIL 600 MG (LOPID) TAB PO SCH (22:05)
[2018-11-02] MEDS: APIXABAN 5 MG (ELIQUIS) TABLET PO SCH (22:05)
[2018-11-02] MEDS: SIMvastatin 10 MG (ZOCOR) TAB PO SCH (22:05)
[2018-11-03] VITALS (7 sets, daily range): BP systolic 141–174; BP diastolic 85–97
[2018-11-03 04:08] LABS: HEMOGLOBIN 14.7 G/DL (13.3-17.7); RED CELL DISTRIBUTION WIDTH 14.9 % (10.0-14.5); WHITE BLOOD COUNT 6.7 10^3/uL (4.3-11.0)
[2018-11-03 04:33] LABS: ALANINE AMINOTRANSFERASE 18 U/L (0-55); ALBUMIN 3.9 GM/DL (3.2-4.5); ALKALINE PHOSPHATASE 74 U/L (40-136); BILIRUBIN,TOTAL 0.6 MG/DL (0.1-1.0); BUN/CREATININE RATIO 15; CALCIUM 9.6 MG/DL (8.5-10.1); CARBON DIOXIDE 18 MMOL/L (21-32); CHLORIDE 110 MMOL/L (98-107); CREATININE SERUM 1.06 MG/DL (0.60-1.30); GFR ESTIMATED > 60; GLUCOSE 95 MG/DL (70-105); POTASSIUM 4.3 MMOL/L (3.6-5.0); SODIUM 139 MMOL/L (135-145); TOTAL PROTEIN 6.7 GM/DL (6.4-8.2)
[2018-11-03] MEDS: RT-ADVAIR HFA 115/21 MCG PER PUFF IH SCH ×2 (09:14→19:24)
[2018-11-03] MEDS: UMECLIDINIUM BROMIDE (INCRUSE ELLIPTA) 7'S IH SCH (09:14)
--- NOTE | 2018-11-03 09:31 | NUR ---
SPOKE TO DR KRAFT REGARDING PT'S SOTOLAL ORDERS, NEW ORDERS RECEIVED. SEE ORDER HX.
[2018-11-03] MEDS: GEMFIBROZIL 600 MG (LOPID) TAB PO SCH ×2 (10:27→21:06)
[2018-11-03] MEDS: APIXABAN 5 MG (ELIQUIS) TABLET PO SCH ×2 (10:27→21:05)
[2018-11-03] MEDS: TAMSULOSIN 0.4 MG (FLOMAX) CAP PO SCH (10:27)
[2018-11-03] MEDS: lisINopril 20 MG (PRINIVIL) TABLET PO SCH ×2 (10:28→21:05)
[2018-11-03] MEDS: SOTALOL 80 MG (BETAPACE) TAB PO SCH ×2 (10:28→21:06)
[2018-11-03] MEDS: PANTOPRAZOLE 40 MG (PROTONIX) TAB PO SCH (10:28)
--- NOTE | 2018-11-03 13:45 | Cardiology Progress Note ---
Cardiology SOAP Progress Note Subjective: No cardiac complaints. Objective: I&O/Vital Signs 11/03/18 11/03/18 11/03/18 11/03/18 04:00 04:00 07:00 08:00 Temp 36.6 37.0 Pulse 57 60 65 Resp 17 18 B/P (MAP) 141/89 (106) 143/95 (111) Pulse Ox 99 99 94 O2 Delivery NIV CPAP NIV CPAP Room Air O2 Flow Rate 3.00 3.00 11/03/18 11/03/18 11/03/18 11/03/18 08:15 09:00 09:14 09:15 Pulse Ox 94 94 90 90 O2 Delivery Room Air Room Air Room Air Room Air O2 Flow Rate 3.00 11/03/18 12:35 Pulse Ox 94 O2 Delivery Room Air O2 Flow Rate 3.00 11/03/18 00:00 Intake Total 620 ml Output Total 1400 ml Balance -780 ml Weight (Pounds): 247 Weight (Ounces): 0.0 Weight (Calculated Kilograms): [id number] Constitutional: appears stated age, AAO x 3; No apparent distress; well- developed, well-nourished Respiratory: chest is bilaterally symmetric, lungs clear to auscultation Cardiovascular: regular rate-rhythm, S1 and S2 Gastrointestional: soft, round, audible bowel sounds; No spleenomegaly Extremities: normal range of motion, non-tender, normal inspection; No clubbing, No cyanosis; no lower extremity edema bilateral; No significant edema Neurologic/Psychiatric: no motor/sensory deficits, alert, normal mood/affect, oriented x 3, power is 5/5 both on sides Skin: normal color; No rash, No ulcerations Results/Procedures: Labs Laboratory Tests 11/03/18 03:20: White Blood Count 6.7, Red Blood Count 4.51, Hemoglobin 14.7, Hematocrit 44, Mean Corpuscular Volume 98, Mean Corpuscular Hemoglobin 33, Mean Corpuscular Hemoglobin Concent 33, Red Cell Distribution Width 14.9H, Platelet Count 242, Mean Platelet Volume 10.0, Sodium Level 139, Potassium Level 4.3, Chloride Level 110H, Carbon Dioxide Level 18L, Anion Gap 11, Blood Urea Nitrogen 16, Creatinine 1.06, Estimat Glomerular Filtration Rate > 60, BUN/Creatinine Ratio 15, Glucose Level 95, Calcium Level 9.6, Corrected Calcium 9.7, Total Bilirubin 0.6, Aspartate Amino Transf (AST/SGOT) 22, Alanine Aminotransferase (ALT/SGPT) 18, Alkaline Phosphatase 74, Total Protein 6.7, Albumin 3.9 A/P: Assessment/Dx: Paroxysmal atrial fibrillation, Nonsustained ventricular tachycardia PVCs Plan: 1. Paroxysmal atrial fibrillation. The patient will continue Eliquis for oral anti-coagulation therapy. We are pursuing rhythm control strategy therefore he was initially started on multaq but could not afford the medication. His other option is sotalol which requires hospitalization for 72 hours for monitoring QT interval. The patient was bradycardic this morning. He is also on high dose of Cardizem and low-dose of metoprolol. Sotalol 40 mg was given as the first dose on 11/02/2018. We will discontinue metoprolol. We will decrease the dose of Cardizem to 180 mg daily. We will now continue sotalol 80 mg twice a day. EKG before giving sotalol and 2 hours after each dose. QTc interval is still within normal limits. 2. Nonsustained ventricular tachycardia history. Sotalol, Cardizem. Normal EF. 3. PVCs, continue current medication. I previously discussed atrial fibrillation ablation with the patient and do not think that he is the best candidate due to his severe oxygen-dependent COPD and sleep apnea. Thank you for your consultation. Please call me if you have any questions. Marco Pratt MD, FACP, FACC, FSCAI, FHRS, CCDS Interventional Cardiology Cardiac Electrophysiology Vascular Medicine and Endovascular Interventions Omar PRATT MD Nov 03, 2018 13:45
[2018-11-03] MEDS: SIMvastatin 10 MG (ZOCOR) TAB PO SCH (21:05)
[2018-11-03] MEDS: MELATONIN 3 MG TABLET PO SCH (21:05)
[2018-11-03] MEDS: MONTELUKAST 10 MG (SINGULAIR) TAB PO SCH (21:06)
[2018-11-03] MEDS: DILTIAZEM 180 MG (CARDIZEM CD) CAP PO SCH (21:06)
[2018-11-04 03:19] LABS: HEMOGLOBIN 14.7 G/DL (13.3-17.7); RED CELL DISTRIBUTION WIDTH 15.2 % (10.0-14.5); WHITE BLOOD COUNT 6.6 10^3/uL (4.3-11.0)
[2018-11-04 04:30] VITALS: BP 122/72
[2018-11-04] MEDS: RT-ADVAIR HFA 115/21 MCG PER PUFF IH SCH ×2 (07:09→18:10)
[2018-11-04] MEDS: UMECLIDINIUM BROMIDE (INCRUSE ELLIPTA) 7'S IH SCH (07:09)
[2018-11-04 08:00] VITALS: BP 125/86
[2018-11-04] MEDS: SOTALOL 80 MG (BETAPACE) TAB PO SCH ×2 (08:43→21:08)
[2018-11-04] MEDS: GEMFIBROZIL 600 MG (LOPID) TAB PO SCH ×2 (08:43→21:08)
[2018-11-04] MEDS: TAMSULOSIN 0.4 MG (FLOMAX) CAP PO SCH (08:43)
[2018-11-04] MEDS: PANTOPRAZOLE 40 MG (PROTONIX) TAB PO SCH (08:43)
[2018-11-04] MEDS: APIXABAN 5 MG (ELIQUIS) TABLET PO SCH ×2 (08:43→21:08)
[2018-11-04] MEDS: lisINopril 20 MG (PRINIVIL) TABLET PO SCH ×2 (08:43→21:08)
[2018-11-04 12:03] VITALS: BP 145/88
--- NOTE | 2018-11-04 14:22 | Cardiology Progress Note ---
Cardiology SOAP Progress Note Subjective: No cardiac complaints. Objective: I&O/Vital Signs 11/04/18 11/04/18 11/04/18 11/04/18 03:25 04:30 07:00 07:10 Temp 36.8 Pulse 55 46 Resp 18 B/P (MAP) 122/72 (89) Pulse Ox 94 95 91 O2 Delivery NIV CPAP NIV CPAP NIV CPAP O2 Flow Rate 3.00 3.00 3.00 11/04/18 11/04/18 11/04/18 11/04/18 07:11 08:00 08:00 09:00 Temp 36.6 Pulse 64 Resp 18 B/P (MAP) 125/86 (99) Pulse Ox 90 94 94 94 O2 Delivery Room Air Room Air Room Air Room Air 11/04/18 11/04/18 11/04/18 12:03 12:33 12:42 Temp 36.8 Pulse 59 50 Resp 20 B/P (MAP) 145/88 (107) Pulse Ox 92 94 O2 Delivery Nasal Cannula Nasal Cannula O2 Flow Rate 3.00 3.00 11/04/18 00:00 Intake Total 640 ml Output Total 1275 ml Balance -635 ml Weight (Pounds): 247 Weight (Ounces): 0.0 Weight (Calculated Kilograms): 112.425278 Constitutional: appears stated age, AAO x 3; No apparent distress; well- developed, well-nourished Respiratory: chest is bilaterally symmetric, lungs clear to auscultation Cardiovascular: regular rate-rhythm, S1 and S2 Gastrointestional: soft, round, audible bowel sounds; No spleenomegaly Extremities: normal range of motion, non-tender, normal inspection; No clubbing, No cyanosis; no lower extremity edema bilateral; No significant edema Neurologic/Psychiatric: no motor/sensory deficits, alert, normal mood/affect, oriented x 3, power is 5/5 both on sides Skin: normal color; No rash, No ulcerations Results/Procedures: Labs Laboratory Tests 11/04/18 02:40: White Blood Count 6.6, Red Blood Count 4.63, Hemoglobin 14.7, Hematocrit 45, Mean Corpuscular Volume 97, Mean Corpuscular Hemoglobin 32, Mean Corpuscular Hemoglobin Concent 33, Red Cell Distribution Width 15.2H, Platelet Count 262, Mean Platelet Volume 10.0 A/P: Assessment/Dx: Paroxysmal atrial fibrillation, Nonsustained ventricular tachycardia PVCs Plan: 1. Paroxysmal atrial fibrillation. The patient will continue Eliquis for oral anti-coagulation therapy. We are pursuing rhythm control strategy therefore he was initially started on multaq but could not afford the medication. His other option is sotalol which requires hospitalization for 72 hours for monitoring QT interval. The patient was bradycardic this morning. He is also on high dose of Cardizem and low-dose of metoprolol. Sotalol 40 mg was given as the first dose on 11/02/2018. Metoprolol discontinued. Cardizem 180 mg daily. We will now continue sotalol 80 mg twice a day. EKG before giving sotalol and 2 hours after each dose. QTc interval is still within normal limits. Hopefully discharge in the morning. 2. Nonsustained ventricular tachycardia history. Sotalol, Cardizem. Normal EF. 3. PVCs, continue current medication. I previously discussed atrial fibrillation ablation with the patient and do not think that he is the best candidate due to his severe oxygen-dependent COPD and sleep apnea. Thank you for your consultation. Please call me if you have any questions. Marco Pratt MD, FACP, FACC, FSCAI, FHRS, CCDS Interventional Cardiology Cardiac Electrophysiology Vascular Medicine and Endovascular Interventions Omar PRATT MD Nov 04, 2018 14:22
[2018-11-04 16:10] VITALS: BP 159/92
[2018-11-04 20:00] VITALS: BP 170/97
[2018-11-04] MEDS: DILTIAZEM 180 MG (CARDIZEM CD) CAP PO SCH (21:08)
[2018-11-04] MEDS: SIMvastatin 10 MG (ZOCOR) TAB PO SCH (21:08)
[2018-11-04] MEDS: MELATONIN 3 MG TABLET PO SCH (21:08)
[2018-11-04] MEDS: MONTELUKAST 10 MG (SINGULAIR) TAB PO SCH (21:09)
[2018-11-05] VITALS: BP 146/89
[2018-11-05 03:43] VITALS: BP 144/85
[2018-11-05 04:03] LABS: HEMOGLOBIN 15.2 G/DL (13.3-17.7); MEAN PLATELET VOLUME 10.3 FL (7.4-10.4); RED CELL DISTRIBUTION WIDTH 14.8 % (10.0-14.5); WHITE BLOOD COUNT 6.4 10^3/uL (4.3-11.0)
[2018-11-05] MEDS: SOTALOL 80 MG (BETAPACE) TAB PO SCH (06:21)
[2018-11-05] MEDS: UMECLIDINIUM BROMIDE (INCRUSE ELLIPTA) 7'S IH SCH (07:53)
[2018-11-05] MEDS: RT-ADVAIR HFA 115/21 MCG PER PUFF IH SCH (07:53)
[2018-11-05 08:00] VITALS: BP 133/85
[2018-11-05] MEDS: PANTOPRAZOLE 40 MG (PROTONIX) TAB PO SCH (08:22)
[2018-11-05] MEDS: APIXABAN 5 MG (ELIQUIS) TABLET PO SCH (08:22)
[2018-11-05] MEDS: GEMFIBROZIL 600 MG (LOPID) TAB PO SCH (08:22)
[2018-11-05] MEDS: lisINopril 20 MG (PRINIVIL) TABLET PO SCH (08:22)
[2018-11-05] MEDS: TAMSULOSIN 0.4 MG (FLOMAX) CAP PO SCH (08:22)
[2018-11-05] MEDS ORDERED: DILT180C90 PO (11:34)
[2018-11-05] MEDS ORDERED: STL80T PO (11:55)
[2018-11-05 12:00] VITALS: BP 129/81
[2018-11-05 12:23] VITALS: BP 129/81
--- NOTE | 2018-11-05 12:25 | NUR ---
NEW RX'S CALLED TO [facility] SPOKE TO BIANCA DE LA CRUZ.
--- NOTE | 2018-11-05 13:14 | Cardiology Discharge Summary ---
Diagnosis/Chief Complaint Date of Admission Nov 02, 2018 at 08:01 Date of Discharge Nov 05, 2018 at 12:15 Admission Diagnosis Paroxysmal atrial fibrillation Final/Discharge Diagnosis Paroxysmal atrial fibrillation Chief Complaint/HPI Chief Complaint/HPI This is a 78-year-old gentleman who follows with Dr. Nur for cardiology. He was referred to me for evaluation and management of atrial fibrillation and nonsustained ventricular tachycardia. The patient has known history of paroxysmal atrial fibrillation for the last few years. He was previously on amiodarone for 2 years and Eliquis for stroke prevention. The patient also deve loped nonsustained ventricular tachycardia on 11/01/2014. A previous Holter monitor done on 02/28/2015 showed sinus rhythm with occasional PVCs, ventricular bigeminy and PVCs. A short 7 beat run of paroxysmal atrial tachycardia was noted. The patient had an implantable loop recorder done. Echocardiogram shows normal EF with pulmonary hypertension. The patient has history of mitral valve repair with annuloplasty ring in 2009. He has history of hypertension, hyperlipidemia. Heart catheterization in 2009 showed no significant obstructive disease. He also has history of diabetes, oxygen dependent COPD and obstructive sleep apnea. He is been admitted for in-hospital sotalol loading. Discharge Summary Procedures None. Discharge Physical Examination Normal cardiovascular examination. Hospital Course Was the Problem List Reviewed?: Yes No arrhythmias. No QTC prolongation on sotalol loading. Initial bradycardia was noted. However Cardizem was reduced from 300 mg to 180 mg daily. Metoprolol was discontinued. No further significant bradycardia. Discussion & Recommendations Discussion Discussed with the patient. Patient will continue sotalol 80 mg twice a day. Follow up appt.: Dr. Pratt in 4 weeks. Dicharge Diet: Cardiac Diet Activity as Tolerated: Yes Home Medications Reviewed patient Home Medication Reconciliation performed by pharmacy medication reconciliations geotechnical laboratory technician and/or nursing. Patients Allergies have been reviewed. Discharge Home Medications: Reviewed and agree with Discharge Medication list on patient's Discharge Instruction sheet Condition at discharge Stable. Instructions to patient/family Discussed with the patient. Clinical Quality Measures DVT/VTE Risk/Contraindication: Risk Factor Score Per Nursin RFS Level Per Nursing on Admit: 3=High Other: PT ON Omar GAMBOA MD Nov 05, 2018 13:14
== END 2018-11-05 12:15 | disposition home or self-care (01) | DRG 310 ==
LOC: ICU 08:01
PROVIDERS: ADMIT Internal Medicine Interventional Cardiology; ATTEND Internal Medicine Interventional Cardiology
DX: I48.0 Paroxysmal atrial fibrillation (principal); I47.2 Ventricular tachycardia; I10 Essential (primary) hypertension; E78.5 Hyperlipidemia, unspecified; R00.1 Bradycardia, unspecified; E11.9 Type 2 diabetes mellitus without complications; J44.9 Chronic obstructive pulmonary disease, unspecified; G47.33 Obstructive sleep apnea (adult) (pediatric); I49.3 Ventricular premature depolarization; Z99.81 Dependence on supplemental oxygen; Z87.891 Personal history of nicotine dependence; Z79.01 Long term (current) use of anticoagulants
CPT/HCPCS: 36415; 80053; 85027; 93005; 94640; 94760

== ENCOUNTER 2018-11-08 10:47 | Outpatient (RCR) | payer MEDICARE ==
[2018-09-22 10:21] LABS: BASOPHILS # (AUTO) 0.1 10^3/uL (0.0-0.1); BASOPHILS % (AUTO) 1 % (0-10); EOSINOPHILS # (AUTO) 0.1 10^3/uL (0.0-0.3); EOSINOPHILS % (AUTO) 1 % (0-10); HEMATOCRIT 42 % (40-54); HEMOGLOBIN 13.6 G/DL (13.3-17.7); LYMPHOCYTES # (AUTO) 1.2 X 10^3 (1.0-4.0); LYMPHOCYTES % (AUTO) 19 % (12-44); MEAN CORPUSCULAR HEMOGLOBIN 32 PG (25-34); MEAN CORPUSCULAR HGB CONC 33 G/DL (32-36); MEAN CORPUSCULAR VOLUME 97 FL (80-99); MEAN PLATELET VOLUME 9.5 FL (7.4-10.4); MONOCYTES # (AUTO) 0.8 X 10^3 (0.0-1.0); MONOCYTES % (AUTO) 13 % (0-12); NEUTROPHILS % (AUTO) 66 % (42-75); PLATELET COUNT 327 10^3/uL (130-400); RED CELL DISTRIBUTION WIDTH 17.2 % (10.0-14.5); WHITE BLOOD COUNT 6.1 10^3/uL (4.3-11.0)
[2018-09-22 10:40] LABS: BUN/CREATININE RATIO 17; CARBON DIOXIDE 19 MMOL/L (21-32); CHLORIDE 110 MMOL/L (98-107); CREATININE SERUM 1.09 MG/DL (0.60-1.30); POTASSIUM 4.5 MMOL/L (3.6-5.0); SODIUM 138 MMOL/L (135-145)
[2018-09-22 10:41] LABS: ALANINE AMINOTRANSFERASE 9 U/L (0-55); ALBUMIN 4.1 GM/DL (3.2-4.5); ALKALINE PHOSPHATASE 83 U/L (40-136); BILIRUBIN,TOTAL 0.7 MG/DL (0.1-1.0); CALCIUM 9.5 MG/DL (8.5-10.1); GFR ESTIMATED > 60; GLUCOSE 96 MG/DL (70-105); TOTAL PROTEIN 7.4 GM/DL (6.4-8.2)
[2018-11-01 11:04] LABS: BASOPHILS # (AUTO) 0.1 10^3/uL (0.0-0.1); BASOPHILS % (AUTO) 1 % (0-10); EOSINOPHILS # (AUTO) 0.1 10^3/uL (0.0-0.3); EOSINOPHILS % (AUTO) 1 % (0-10); HEMATOCRIT 47 % (40-54); HEMOGLOBIN 15.3 G/DL (13.3-17.7); LYMPHOCYTES # (AUTO) 1.1 X 10^3 (1.0-4.0); LYMPHOCYTES % (AUTO) 18 % (12-44); MEAN CORPUSCULAR HEMOGLOBIN 33 PG (25-34); MEAN CORPUSCULAR HGB CONC 33 G/DL (32-36); MEAN CORPUSCULAR VOLUME 99 FL (80-99); MEAN PLATELET VOLUME 9.9 FL (7.4-10.4); MONOCYTES # (AUTO) 0.8 X 10^3 (0.0-1.0); MONOCYTES % (AUTO) 13 % (0-12); NEUTROPHILS # (AUTO) 4.2 X 10^3 (1.8-7.8); NEUTROPHILS % (AUTO) 67 % (42-75); PLATELET COUNT 251 10^3/uL (130-400); RED CELL DISTRIBUTION WIDTH 15.5 % (10.0-14.5); WHITE BLOOD COUNT 6.3 10^3/uL (4.3-11.0)
[2018-11-01 11:25] LABS: ALBUMIN 4.3 GM/DL (3.2-4.5); BILIRUBIN,TOTAL 0.8 MG/DL (0.1-1.0); CALCIUM 10.2 MG/DL (8.5-10.1); CREATININE SERUM 1.23 MG/DL (0.60-1.30); POTASSIUM 4.2 MMOL/L (3.6-5.0); TOTAL PROTEIN 7.4 GM/DL (6.4-8.2)
[~2018-11-08 10:47] MED LIST changes: +DILT180C90 PO; +DILT300C52 PO; +DRON400T2 PO; +LISI-552 PO; +MELA3TAB PO; +METO-333 PO; +PRAV20TA3 PO; +RT-ALBUINH INH; +SILD20TA14 PO; +STL80T PO; +TAMS0.4C98 PO; +TEST200V21 INJ; +TIOT4MIS2 IH
[2018-12-02] MEDS ORDERED: DILT180C54 PO (14:41)
[2018-12-02] MEDS ORDERED: SOTA80TA62 PO (14:41)
== END 2018-12-21 | disposition home or self-care (01) ==
LOC: ONC 10:47
PROVIDERS: ATTEND Internal Medicine Hematology & Oncology
DX: D58.2 Other hemoglobinopathies (principal); J44.9 Chronic obstructive pulmonary disease, unspecified; I10 Essential (primary) hypertension; I48.0 Paroxysmal atrial fibrillation; E11.9 Type 2 diabetes mellitus without complications; E78.5 Hyperlipidemia, unspecified; M79.7 Fibromyalgia; G47.33 Obstructive sleep apnea (adult) (pediatric); M81.0 Age-related osteoporosis without current pathological fracture; Z79.01 Long term (current) use of anticoagulants; Z79.899 Other long term (current) drug therapy; Z87.891 Personal history of nicotine dependence
CPT/HCPCS: 36415; 80053; 82728; 83540; 85025; 99213

== ENCOUNTER 2018-12-02 11:32 | Inpatient (IN) | payer MEDICARE ==
[~2018-12-02] VITALS: Ht 177.8 cm; Wt 118.4 kg
[2018-12-02] MEDS ORDERED: ASPIRIN 81 MG CHEW (CHILDREN'S ASA) PO ONE (12:00)
--- NOTE | 2018-12-02 12:00 | NUR ---
1200- 2ND BAG NS STARTED 1202- ZOLL PATCHES PLACED ON PT 1204- HR 156, RR 24, O2 96%, 76/56 1206- FENTANYL 100MCG AND VERSED 2MG ADMINISTERED 1207- FIRST SHOCK ADMINISTERED @ 120 joules 1207- HR 76, O2 96% NC3L, RR 23, CO2 14, 112/77 1213- PT PLACED ON OXYMASK @ 5L BY RT.
[2018-12-02] MEDS ORDERED: fentaNYL INJECTION 100 MCG/2 ML AMP ONE (12:01)
[2018-12-02] MEDS ORDERED: MIDAZOLAM 5 MG/5 ML (VERSED) VIAL ONE (12:01)
[2018-12-02 12:05] LABS: BASOPHILS % (AUTO) 1 % (0-10); EOSINOPHILS # (AUTO) 0.1 10^3/uL (0.0-0.3); EOSINOPHILS % (AUTO) 1 % (0-10); HEMATOCRIT 49 % (40-54); LYMPHOCYTES # (AUTO) 1.7 X 10^3 (1.0-4.0); LYMPHOCYTES % (AUTO) 20 % (12-44); MEAN CORPUSCULAR HEMOGLOBIN 31 PG (25-34); MEAN CORPUSCULAR HGB CONC 33 G/DL (32-36); MEAN CORPUSCULAR VOLUME 95 FL (80-99); MEAN PLATELET VOLUME 9.6 FL (7.4-10.4); MONOCYTES # (AUTO) 0.8 X 10^3 (0.0-1.0); MONOCYTES % (AUTO) 10 % (0-12); NEUTROPHILS # (AUTO) 5.6 X 10^3 (1.8-7.8); NEUTROPHILS % (AUTO) 68 % (42-75); PLATELET COUNT 223 10^3/uL (130-400); RED CELL DISTRIBUTION WIDTH 15.1 % (10.0-14.5); WHITE BLOOD COUNT 8.2 10^3/uL (4.3-11.0)
[2018-12-02] MEDS ORDERED: NS IV 1000 ML 1,000 ML IV ONE (12:12)
[2018-12-02] MEDS ORDERED: NS IV 1000 ML 1,000 ML IV SCH ×2 (12:12→12:33)
[2018-12-02] MEDS ORDERED: fentaNYL INJECTION 100 MCG/2 ML AMP IVP ONE (12:15)
[2018-12-02] MEDS ORDERED: MIDAZOLAM 2 MG/2 ML (VERSED) VIAL IVP ONE (12:15)
[2018-12-02 12:20] LABS: INR 1.3 (0.8-1.4); PROTHROMBIN TIME PATIENT 16.3 SEC (12.2-14.7)
--- NOTE | 2018-12-02 12:20 | NUR ---
PT IS AWAKE AND TALKING. A&Ox4
--- NOTE | 2018-12-02 12:21 | ED Cardiac General ---
History of Present Illness General Chief Complaint: Cardiac/General Problems Stated Complaint: A-FIB Source: patient, spouse Exam Limitations: no limitations History of Present Illness Date Seen by Provider: Dec 02, 2018 Time Seen by Provider: 11:40 Initial Comments Patient present with history of breathlessness, tightness across the top of his chest, short of breath and rapid palpitations. He has a history of atrial fibrillation with rapid ventricular response and has had to be cardioverted electronically in the past. He is a patient of Liudmila and Dr. Valadez. He has a history of mitral valve replacement but no coronary disease. No stents or CABG. He is on Eliquis, diltiazem and sotalol. Patient was in pulmonary rehabilitation and did very well to the very end when he started to feel the sensation at about 9:00, 3 hours prior to arrival. Allergies and Home Medications Allergies Coded Allergies: meperidine (Unverified Allergy, Unknown, LOW BP, N/V, 09/12/13) shellfish derived (Unverified Allergy, Unknown, 09/12/13) Home Medications Albuterol Sulfate 1 Puff Puff, 2 PUFF INH Q4H PRN for SHORTNESS OF BREATH, (Reported) 1 PUFF = 90 MCG Apixaban 5 Mg Tablet, 5 MG PO BID, (Reported) Budesonide/Formoterol Fumarate 10.2 Gm Hfa.aer.ad, 2 PUFF INH BID, (Reported) Diltiazem HCl 300 Mg Cap.er.24h, 300 MG PO HS, (Reported) Diltiazem HCl 180 Mg Cap.er.24h, 180 MG PO HS Prescribed by: DIMA KRISHNAMURTHY on 11/05/18 1134 Gemfibrozil 600 Mg Tablet, 600 MG PO BID, (Reported) Lisinopril 20 Mg Tablet, 20 MG PO BID, (Reported) Melatonin 3 Mg Tablet, 6 MG PO HS, (Reported) TAKES 2 (3MG) TABLETS Montelukast Sodium 10 Mg Tablet, 10 MG PO HS, (Reported) Omeprazole 40 Mg Capsule.dr, 40 MG PO DAILY, (Reported) Pravastatin Sodium 20 Mg Tablet, 20 MG PO HS, (Reported) Sildenafil Citrate 20 Mg Tablet, 50 MG PO DAILY PRN for ED, (Reported) TAKES 2 & 1/2 (20MG) TABLETS Sotalol HCl 80 Mg Tablet, 80 MG PO BID Prescribed by: DIMA KRISHNAMURTHY on 11/05/18 1155 Tamsulosin HCl 0.4 Mg Cap, 0.4 MG PO DAILY, (Reported) Testosterone Cypionate 200 Mg/1 Ml Vial, 1.5 ML INJ EVERY 3 WEEKS, (Reported) LAST FILLED 10 ML 03-10-18 Tiotropium [place] 4 Gm Mist.inhal, 2 PUFF IH DAILY, (Reported) Tramadol HCl 50 Mg Tablet, 50-100 MG PO QID PRN for PAIN-MODERATE, (Reported) Patient Home Medication List Home Medication List Reviewed: Yes Review of Systems Review of Systems Constitutional: No chills, No diaphoresis EENTM: No Blurred Vision, No Double Vision Respiratory: Denies Cough; Shortness of Air Cardiovascular: See HPI, Chest Pain, Irregular Heart Rate, Lightheadedness, Palpitations Gastrointestinal: Denies Abdomen Distended, Denies Abdominal Pain, Denies Constipated, Denies Diarrhea, Denies Nausea Genitourinary: Denies Burning, Denies Discharge Musculoskeletal: No back pain, No joint pain Skin: No pruritus, No rash Past Phklofa-Mxqcti-Minwlf Hx Patient Social History Alcohol Use: Denies Use Recreational Drug Use: No Smoking Status: Never a Smoker 2nd Hand Smoke Exposure: No Recent Hopitalizations: No Immunizations Up To Date Tetanus Booster (TDap): Unknown Date of Pneumonia Vaccine: Nov 09, 2012 Past Medical History Surgeries: Yes ( CARDIAC CATHS--NO STENTS; LOOP RECORDER IN PLACE; MITRAL VALVE REPAIR) Abdominal, Cardiac, Eye Surgery, Lobectomy Respiratory: Yes COPD, Emphysema Currently Using CPAP: Yes Currently Using BIPAP: No Cardiac: Yes (CHF; MITRAL VALVE REPAIR) Atrial Fibrillation, Coronary Artery Disease, Heart Attack, High Cholesterol, Hypertension Neurological: No Reproductive Disorders: No Sexually Transmitted Disease: No HIV/AIDS: No Genitourinary: No Gastrointestinal: Yes Gastroesophageal Reflux, Jackson's Esophagus Musculoskeletal: Yes (LEFT KNEE DJD, SPINAL STENOSIS, RESTLESS LEG SYNDROME) Arthritis, Fibromyalgia Endocrine: Yes (DIET CONTROLLED DIABETES) Diabetes, Non-Insulin dep HEENT: Yes Cataract Cancer: Yes Skin Did You Recieve Any Treatments: Yes What Type of Treatment Did You: Surgical Intervention Psychosocial: No Integumentary: No Blood Disorders: No Physical Exam Vital Signs Vital Signs - First Documented 12/02/18 11:40 Pulse 164 Resp 20 B/P (MAP) 77/63 (68) Pulse Ox 94 O2 Delivery Nasal Cannula O2 Flow Rate 3.00 Capillary Refill : Less Than 3 Seconds Height, Weight, BMI Height: 5'11.00" Weight: 248lbs. 4.0oz. [id number]; 34.79 BMI Method:Stated General Appearance: WD/WN, Moderate Distress HEENT: PERRL/EOMI, Pharynx Normal; No Moist Mucous Membranes Neck: Full Range of Motion, Normal Inspection Respiratory: Lungs Clear, Normal Breath Sounds, No Accessory Muscle Use, No Respiratory Distress Cardiovascular: Regular Rate, Rhythm, No Edema, Normal Peripheral Pulses Gastrointestinal: Normal Bowel Sounds, No Organomegaly, Non Tender, Soft Extremity: Normal Capillary Refill, Normal Inspection, Normal Range of Motion, No Pedal Edema Neurologic/Psychiatric: Alert, Oriented x3, No Motor/Sensory Deficits Skin: Normal Color, Warm/Dry Focused Exam Lactate Level 12/02/18 12:45: Lactic Acid Level Laboratory Tests Test 12/02/18 12:45 Progress/Results/Core Measures Results/Orders Lab Results Laboratory Tests Test 12/02/18 11:58 12/02/18 12:45 Range/Units White Blood Count 8.2 4.3-11.0 10^3/uL Red Blood Count 5.10 4.35-5.85 10^6/uL Hemoglobin 16.0 13.3-17.7 G/DL Hematocrit 49 40-54 % Mean Corpuscular Volume 95 80-99 FL Mean Corpuscular Hemoglobin 31 25-34 PG Mean Corpuscular Hemoglobin Concent 33 32-36 G/DL Red Cell Distribution Width 15.1 H 10.0-14.5 % Platelet Count 223 130-400 10^3/uL Mean Platelet Volume 9.6 7.4-10.4 FL Neutrophils (%) (Auto) 68 42-75 % Lymphocytes (%) (Auto) 20 12-44 % Monocytes (%) (Auto) 10 0-12 % Eosinophils (%) (Auto) 1 0-10 % Basophils (%) (Auto) 1 0-10 % Neutrophils # (Auto) 5.6 1.8-7.8 X 10^3 Lymphocytes # (Auto) 1.7 1.0-4.0 X 10^3 Monocytes # (Auto) 0.8 0.0-1.0 X 10^3 Eosinophils # (Auto) 0.1 0.0-0.3 10^3/uL Basophils # (Auto) 0.0 0.0-0.1 10^3/uL Prothrombin Time 16.3 H 12.2-14.7 SEC INR Comment 1.3 0.8-1.4 Activated Partial Thromboplast Time 35 24-35 SEC Sodium Level 140 135-145 MMOL/L Potassium Level 4.5 3.6-5.0 MMOL/L Chloride Level 110 H 98-107 MMOL/L Carbon Dioxide Level 17 L 21-32 MMOL/L Anion Gap 13 5-14 MMOL/L Blood Urea Nitrogen 16 7-18 MG/DL Creatinine 1.53 H 0.60-1.30 MG/DL Estimat Glomerular Filtration Rate 44 BUN/Creatinine Ratio 10 Glucose Level 170 H 70-105 MG/DL Calcium Level 9.3 8.5-10.1 MG/DL Corrected Calcium 9.3 8.5-10.1 MG/DL Magnesium Level 1.9 1.6-2.4 MG/DL Total Bilirubin 0.5 0.1-1.0 MG/DL Aspartate Amino Transf (AST/SGOT) 23 5-34 U/L Alanine Aminotransferase (ALT/SGPT) 17 0-55 U/L Alkaline Phosphatase 77 40-136 U/L Myoglobin 89.9 10.0-92.0 NG/ML Troponin I < 0.028 <0.028 NG/ML B-Type Natriuretic Peptide 446.6 H <100.0 PG/ML Total Protein 7.0 6.4-8.2 GM/DL Albumin 4.0 3.2-4.5 GM/DL My Orders Orders - ROB [facility] Midazolam Injection (Versed Injection) (12/02/18 12:01) Fentanyl Injection (Sublimaze Injection (12/02/18 12:01) Fentanyl Injection (Sublimaze Injection (12/02/18 12:15) Midazolam Injection (Versed Injection) (12/02/18 12:15) Ed Iv/Invasive Line Start (12/02/18 12:12) Ns Iv 1000 Ml (Sodium Chloride 0.9%) (12/02/18 12:12) Ns Iv 1000 Ml (Sodium Chloride 0.9%) (12/02/18 12:12) Cbc With Automated Diff (12/02/18 12:33) Comprehensive Metabolic Panel (12/02/18 12:33) Blood Culture (12/02/18 12:33) Sputum Culture (12/02/18 12:33) Urinalysis (12/02/18 12:33) Urine Culture (12/02/18 12:33) Protime With Inr (12/02/18 12:33) Ed Iv/Invasive Line Start (12/02/18 12:33) Ed Iv/Invasive Line Start (12/02/18 12:33) Vital Signs Adult Sepsis Patie Q15M (12/02/18 12:33) O2 (12/02/18 12:33) Remove Rings In Anticipation O (12/02/18 12:33) Lactic Acid Analyzer (12/02/18 12:33) Influenza A And B Antigens (12/02/18 12:33) Ns Iv 1000 Ml (Sodium Chloride 0.9%) (12/02/18 12:33) Cefepime Injection (Maxipime Injection) (12/02/18 12:45) Ekg Tracing (12/02/18 12:10) Medications Given in ED Current Medications Medications Dose Ordered Sig/Miri Route Start Time Stop Time Status Last Admin Dose Admin Aspirin 324 mg ONCE ONCE PO 12/02/18 12:00 12/02/18 12:01 DC 12/02/18 12:28 324 MG Fentanyl Citrate 100 mcg ONCE ONCE IVP 12/02/18 12:15 12/02/18 12:16 DC 12/02/18 12:06 100 MCG Midazolam HCl 2 mg ONCE ONCE IVP 12/02/18 12:15 12/02/18 12:16 DC 12/02/18 12:06 2 MG Sodium Chloride 1,000 ml @ 0 mls/hr Q0M ONCE IV 12/02/18 12:12 12/02/18 12:13 DC 12/02/18 11:58 1,000 MLS/HR Vital Signs/I&O 12/02/18 12/02/18 12/02/18 11:40 11:40 12:01 Pulse 164 152 Resp 20 B/P (MAP) 77/63 (68) Pulse Ox 94 94 O2 Delivery Nasal Cannula Nasal Cannula O2 Flow Rate 3.00 3.00 Progress Progress Note : Time: 12:32 Progress Note The patient's heart rate is in the mid to upper 80s but his blood pressure is repeatedly low resume 73/45. We'll obtain blood cultures and urine and give him a third liter to bring him up to 30 mL/kg and consider pressors. He is mentating well and answering questions has no pain or discomfort. Initial ECG Impression Date: Dec 02, 2018 Diagnostic Imaging Diagonstic Imaging: Xray Plain Films/CT/US/NM/MRI: chest (1v) Consults : Consulting Physician: MIRLANDE NUR MD Consults Notes 1300: Dr. Nur presented to the ER and examined patient. He is okay with the blood pressure as it isn't would not go on anymore IV fluids. He would like patient in cardiac stepdown for monitoring. He will put in medication orders. Critical Care Note Critical Care Start Time: 11:45 Stop Time: 12:10 Total Time (minutes) 25 m Progress Patient presents to sit up on the monitor and demonstrated hypotension and supraventricular tachycardia around 160. We will put him in Trendelenburg got 2 large bore IV started 2 L of fluid which were about 600 cc in and were still unable to get a blood pressure with a map above 65. His systolic was 78 so we put him in sync mode and delivered 120 J cardioversion. Patient was premedicated with 100 g of fentanyl, 2 mg Versed, end-tidal CO2 was in place as well as we put him on 3 L which is his baseline oxygen by nasal cannula. Oxygen sats were staying in the upper 90s. He tolerated procedure well, took a short nap and an EKG was obtained showing no ST changes. Departure Communication (Admissions) Time/Spoke to Admitting Phy: 13:09 Discussed case lab EKG imaging findings and procedures and she agrees to admit the patient. Time/Spoke to Consulting Phy: 12:15 Discussed case lab imaging findings with Dr. Nur he agrees with plan and would like cardiac stepdown. Impression Primary Impression: Atrial fibrillation with rapid ventricular response Additional Impression: Atrial fibrillation status post cardioversion Disposition: ADMITTED INPATIENT Condition: Stable Admissions Decision to Admit Reason: Admit from ER (General) Decision to Admit/Date: Dec 02, 2018 Time/Decision to Admit Time: 12:10 Departure-Patient Inst. Referrals: REJI GIBBS MD (PCP/Family) Primary Care Physician [facility] Dec 02, 2018 12:21
[2018-12-02 12:25] LABS: ALANINE AMINOTRANSFERASE 17 U/L (0-55); ALKALINE PHOSPHATASE 77 U/L (40-136); BILIRUBIN,TOTAL 0.5 MG/DL (0.1-1.0); BUN/CREATININE RATIO 10; CALCIUM 9.3 MG/DL (8.5-10.1); CARBON DIOXIDE 17 MMOL/L (21-32); CHLORIDE 110 MMOL/L (98-107); CREATININE SERUM 1.53 MG/DL (0.60-1.30); GFR ESTIMATED 44; GLUCOSE 170 MG/DL (70-105); MAGNESIUM 1.9 MG/DL (1.6-2.4); POTASSIUM 4.5 MMOL/L (3.6-5.0); SODIUM 140 MMOL/L (135-145)
[2018-12-02] MEDS ORDERED: CEFEPIME INJECTION 1,000 MG in WATER (STERILE) FOR INJECTION 10 ML IV ONE (12:45)
--- NOTE | 2018-12-02 12:52 | Diagnostic Imaging Report ---
EXAMINATION: Portable erect AP chest at 12:37 p.m. INDICATION: Atrial fibrillation. FINDINGS: The cardiomegaly and the sternotomy wires and surgical clips noted on the prior exam of 07/14/2018 are again evident and not significantly changed. The loop recorder device overlying the left thorax seen previously has been removed, however. As on the prior exam, there are diffuse alveolar/interstitial pulmonary infiltrates along the periphery of the right lung and in the left lung base. These findings are similar to the previous study and could be chronic in nature. The possibility that there is an element of acute pneumonia superimposed on the chronic pulmonary changes should still be considered. The mediastinum is not widened. The osseous structures are intact. IMPRESSION: There are persistent diffuse alveolar/interstitial infiltrates involving both lungs. These findings are similar to the prior study and may well be chronic in nature. Even so, there could be an element of acute pneumonia/atelectasis present. Clinical follow-up is recommended. Dictated by: Dictated on workstation # [id number]
[2018-12-02 14:00] VITALS: BP 109/70
[2018-12-02] MEDS ORDERED: ACETAMINOPHEN 500 MG TAB (TYLENOL) PO PRN (14:15)
[2018-12-02] MEDS ORDERED: CATHETER FLUSH 10 ML SYR IV PRN (14:15)
[2018-12-02] MEDS ORDERED: ONDANSETRON 4 MG/2 ML (SDV) Z0FRAN IV PRN (14:15)
[2018-12-02] MEDS ORDERED: SOTA80TA62 PO (14:41)
[2018-12-02] MEDS ORDERED: DILT180C54 PO (14:41)
--- NOTE | 2018-12-02 14:50 | NUR ---
SPOKE WITH THE PATIENT ABOUT HIS MEDICATIONS. HE HAD A LIST WITH HIM. I COMPARED THAT LIST WITH THE EXT MED HX. HE STATES HE IS ONLY TAKING THE DILTIAZEM 180MG NOW, HE ALSO FILLED 300MG 10-06-18 #90 BUT STATES HE IS NOT TAKING THE 300MG. THIS VISIT HE REPORTS HIS TESTOSTERONE IS 1ML Q 2 WEEKS AND IT WAS RECENTLY FILLED 11-15-18. HE FILLED METOPROLOL TARTRATE 25MG BID #60 10-29-18 - THIS WAS DISCONTINUED AT HIS LAST DISCHARGE AND HE VERIFIES HE IS NO LONGER TAKING IT. ADDITIONALLY HE REPORTS HE USES VENTOLIN PRN AND SPIRIVA DAILY. HE HAS TOLD ME HE GETS SAMPLES OF THESE SOMETIMES. HE TAKES MELATONIN 3MG OTC - HE TAKES 2-3 AT HS DEPENDING HOW HE IS FEELING.
--- NOTE | 2018-12-02 15:25 | Electrophysiology Consultation ---
HPI-Cardiology Cardiology Consultation: Date of Consultation 12/02/18 Date of Admission Attending Physician Lisa Pruitt MD Admitting Physician Lisa Pruitt MD Consulting Physician Omar PRATT MD HPI: Time Seen by a Provider: 15:51 Chief Complaint: AF This is a 78-year-old gentleman who has oxygen dependent COPD, hypertension, persistent atrial fibrillation, previous mitral valve surgery. He sees Dr. Nur for cardiology. I see him in the office for cardiac electrophysiology. The patient is on sotalol, oral anticoagulation therapy as well as Cardizem. He presented with persistent atrial fibrillation with rapid ventricular rate and hypotension to the ER. His systolic blood pressure was below 70 mmHg. He was emergently cardioverted to sinus rhythm. Improvement in blood pressure to a systolic blood pressure of 103 mmHg. The patient denied any other complaints. Review of Systems-Cardiology Review of Systems Constitutional: As described under HPI; No As described under HPI, No no symptoms reported, No chills, No fever, No lightheadedness Eyes: No As described under HPI, No no symptoms reported, No blindness, No blurred vision, No contact lenses, No drainage, No decreased acuity, No foreign body sensation, No pain, No vision change Ears/Nose/Throat: No As described under HPI, No no symptoms reported, No chronic hearing loss, No ear discharge, No ear pain, No nasal drainage, No ulcerations Respiratory: No no symptoms reported; As described under HPI; No As described under HPI, No cough, No orthopnea; shortness of breath; No SOB with excertion Cardiovascular: No no symptoms reported; As described under HPI; No As described under HPI, No chest pain, No edema; irregular heart rate; No lightheadedness; palpitations Gastrointestinal: No no symptoms reported, No As described under HPI, No abdomen distended, No abdominal pain, No blood streaked bowels, No constipation, No diarrhea, No nausea, No vomiting, No stool coloration changes Genitourinary: No As described under HPI, No burning, No dysuria, No discharge, No frequency, No flank pain, No hematuria, No urgency Skin: No rash, No skin related problems, No ulcerations Psychiatric/Neurological: No anxiety, No depression, No seizure, No focal weakness, No syncope Hematologic: No bleeding abnormalities HED-Ajludx-Oesjpq Hx Patient Social History Alcohol Use: Denies Use Recreational Drug Use: No Smoking Status: Never a Smoker Former smoker/When Quit: Feb 09, 1999 2nd Hand Smoke Exposure: No Recent Foreign Travel: No Recent Infectious Disease Expo: No Hospitalization with Isolation: Denies Immunizations Up To Date Tetanus Booster (TDap): Unknown Date of Pneumonia Vaccine: Nov 09, 2012 Past Medical History PMH As described under Assessment. Allergies and Home Medications Allergies Coded Allergies: meperidine (Unverified Allergy, Unknown, LOW BP, N/V, 09/12/13) shellfish derived (Unverified Allergy, Unknown, 09/12/13) Home Medications Albuterol Sulfate 1 Puff Puff, 2 PUFF INH Q4H PRN for SHORTNESS OF BREATH, (Reported) 1 PUFF = 90 MCG Apixaban 5 Mg Tablet, 5 MG PO BID, (Reported) Budesonide/Formoterol Fumarate 10.2 Gm Hfa.aer.ad, 2 PUFF INH BID, (Reported) Diltiazem HCl 180 Mg Cap.er.24h, 180 MG PO DAILY, (Reported) Gemfibrozil 600 Mg Tablet, 600 MG PO BID, (Reported) Lisinopril 20 Mg Tablet, 20 MG PO BID, (Reported) Melatonin 3 Mg Tablet, 6-9 MG PO HS PRN for SLEEP, (Reported) TAKES 2 (3MG) TABLETS Montelukast Sodium 10 Mg Tablet, 10 MG PO DAILY, (Reported) Omeprazole 40 Mg Capsule.dr, 40 MG PO HS, (Reported) Pravastatin Sodium 20 Mg Tablet, 20 MG PO DAILY, (Reported) Sildenafil Citrate 20 Mg Tablet, 50 MG PO DAILY PRN for ED, (Reported) TAKES 2 & 1/2 (20MG) TABLETS Sotalol HCl 80 Mg Tablet, 80 MG PO BID, (Reported) Tamsulosin HCl 0.4 Mg Cap, 0.4 MG PO DAILY, (Reported) Testosterone Cypionate 200 Mg/1 Ml Vial, 200 MG INJ EVERY 2 WEEKS, (Reported) Tiotropium [place] 4 Gm Mist.inhal, 2 PUFF IH DAILY, (Reported) Tramadol HCl 50 Mg Tablet, 50-100 MG PO QID PRN for PAIN-MODERATE, (Reported) Patient Home Medication List Home Medication List Reviewed: Yes Physical Exam-Cardiology Physical Exam Vital Signs/I&O 12/02/18 12/02/18 12/02/18 12/02/18 11:40 11:40 12:01 13:42 Pulse 164 152 75 Resp 20 19 B/P (MAP) 77/63 (68) 103/69 Pulse Ox 94 94 94 O2 Delivery Nasal Cannula Nasal Cannula Room Air O2 Flow Rate 3.00 3.00 12/02/18 12/02/18 12/02/18 12/02/18 13:45 13:45 13:52 14:00 Temp 36.5 36.6 Pulse 90 81 Resp 18 18 B/P (MAP) 109/70 (83) Pulse Ox 98 92 94 O2 Delivery Nasal Cannula Simple Mask Nasal Cannula Nasal Cannula O2 Flow Rate 3.00 3.00 12/02/18 12/02/18 12/02/18 12/02/18 14:31 15:00 16:00 16:00 Temp 36.5 36.6 Pulse 69 70 68 86 Resp 18 18 18 Pulse Ox 94 94 94 O2 Delivery Nasal Cannula Simple Mask Nasal Cannula O2 Flow Rate 3.00 Capillary Refill : Less Than 3 Seconds Constitutional: appears stated age, AAO x 3; No apparent distress; well- developed, well-nourished HEENT: PERRL; No discharge; hearing is well preserved, oral hygience is good; No ulceration, No xanthelasmas are seen Neck: No carotid bruit; carotid pulses are 2 + bilaterally Respiratory: chest is bilaterally symmetric, lungs clear to auscultation Cardiovascular: regular rate-rhythm; No irregularly irregular, No extra beats, No parasternal heave is noted, No JVD, No edema, No bradycardia, No tachycardia, No point of maximal impulse, No cardiac thrills are palpable; S1 and S2; No gallop/S3, No gallop/S4, No diastolic murmur, No systolic murmur, No friction rub, No click, No other Gastrointestinal: soft, audible bowel sounds; No spleenomegaly Rectal: deferred Extremities: normal range of motion, non-tender, normal inspection; No clubb ing, No cyanosis; no lower extremity edema bilateral; No significant edema Neurologic/Psychiatric: no motor/sensory deficits, alert, normal mood/affect, oriented x 3, power is 5/5 both on sides Skin: normal color, warm/dry; No rash, No ulcerations Data Review Labs Laboratory Tests 12/02/18 11:58: White Blood Count 8.2, Red Blood Count 5.10, Hemoglobin 16.0, Hematocrit 49, Mean Corpuscular Volume 95, Mean Corpuscular Hemoglobin 31, Mean Corpuscular Hemoglobin Concent 33, Red Cell Distribution Width 15.1H, Platelet Count 223, Mean Platelet Volume 9.6, Neutrophils (%) (Auto) 68, Lymphocytes (%) (Auto) 20, Monocytes (%) (Auto) 10, Eosinophils (%) (Auto) 1, Basophils (%) (Auto) 1, Neutrophils # (Auto) 5.6, Lymphocytes # (Auto) 1.7, Monocytes # (Auto) 0.8, Eosinophils # (Auto) 0.1, Basophils # (Auto) 0.0, Prothrombin Time 16.3H, INR Comment 1.3, Activated Partial Thromboplast Time 35, Sodium Level 140, Potassium Level 4.5, Chloride Level 110H, Carbon Dioxide Level 17L, Anion Gap 13, Blood Urea Nitrogen 16, Creatinine 1.53H, Estimat Glomerular Filtration Rate 44, BUN/Creatinine Ratio 10, Glucose Level 170H, Calcium Level 9.3, Corrected Calcium 9.3, Magnesium Level 1.9, Total Bilirubin 0.5, Aspartate Amino Transf (AST/SGOT) 23, Alanine Aminotransferase (ALT/SGPT) 17, Alkaline Phosphatase 77, Myoglobin 89.9, Troponin I < 0.028, B-Type Natriuretic Peptide 446.6H, Total Protein 7.0, Albumin 4.0 12/02/18 12:45: Lactic Acid Level 1.74 Microbiology 12/02/18 Influenza Types A,B Antigen (NO) - Final, Complete A/P-Cardiology Assessment/Admission Diagnosis Atrial fibrillation with rapid ventricular rate, hypotension, Oxygen dependent COPD Plan Continue Eliquis, Cardizem when blood pressure is better, sotalol for now. Patient currently in sinus rhythm. Due to his oxygen dependent COPD, the success rate of persistent atrial fibrillation ablation is at best modest. I've discussed at length with the patient and family. He can get an opinion from electrophysiology in [place]. If they also think that success rate with atrial fibrillation ablation is not worth the effort, the other option is AV imani ablation with permanent pacemaker. This was discussed with the patient and significant other. Thank you for your consultation. Please call me if you have any questions. Marco Pratt MD, FACP, FACC, FSCAI, FHRS, CCDS Interventional Cardiology Cardiac Electrophysiology Vascular Medicine and Endovascular Interventions Clinical Quality Measures DVT/VTE Risk/Contraindication: Risk Factor Score Per Nursin RFS Level Per Nursing on Admit: 3=High Omar PRATT MD Dec 02, 2018 15:25
--- NOTE | 2018-12-02 16:06 | Consultation-Cardiology ---
HPI-Cardiology Cardiology Consultation Date of Consultation 12/02/18 Date of Admission Time Seen by Provider: 16:00 Indication: chest pain, tachycardia HPI 78 years old gentleman with history of paroxysmal atrial fibrillation, nonsustained ventricular tachycardia, suck to have upper back pain, palpitation, he is oxygen dependent, came into the emergency room and noted to be in atrial fibrillation with rapid ventricular response, he was borderline hypotensive, received a shock with synchronized cardioversion and it was successful in terminating atrial fibrillation, he was sitting in bed in the emergency room feeling better, still short of breath. No palpitation or chest pain at that point. Still borderline hypotensive. Home Medications & Allergies Allergies: Coded Allergies: meperidine (Unverified Allergy, Unknown, LOW BP, N/V, 09/12/13) shellfish derived (Unverified Allergy, Unknown, 09/12/13) Home Medication List Reviewed: Yes YOG-Metijr-Ynkfmh Hx Patient Social History Marital Status: Employed/Student: employed Alcohol Use: Denies Use Recreational Drug Use: No Smoking Status: Never a Smoker Former smoker/When Quit: Feb 09, 1999 2nd Hand Smoke Exposure: No Recent Foreign Travel: No Recent Infectious Disease Expo: No Recent Hopitalizations: No Immunizations Up To Date Tetanus Booster (TDap): Unknown Date of Pneumonia Vaccine: Nov 09, 2012 Date of Influenza Vaccine: Nov 02, 2018 Past Medical History Discussed below Family Medical History Family Medical Hx Noncontributory to his current condition Review of Systems-General Review of Systems Constitutional: No chills, No diaphoresis; weakness EENTM: see HPI, no symptoms reported Respiratory: see HPI; No cough; dyspnea on exertion; No hemoptysis, No orthopnea, No phlegm; short of breath; No stridor, No wheezing, No other Cardiovascular: see HPI, chest pain; No edema, No Hx of Intervention; palpitations; No syncope, No vascular heart diseas, No other Gastrointestinal: no symptoms reported, see HPI Genitourinary: no symptoms reported, see HPI Musculoskeletal: No back pain, No joint pain Skin: No pruritus, No rash Psychiatric/Neurological: No Symptoms Reported, See HPI Reviewed Test Results Reviewed Test Results Lab Laboratory Tests Test 12/02/18 11:58 12/02/18 12:45 Range/Units White Blood Count 8.2 4.3-11.0 10^3/uL Red Blood Count 5.10 4.35-5.85 10^6/uL Hemoglobin 16.0 13.3-17.7 G/DL Hematocrit 49 40-54 % Mean Corpuscular Volume 95 80-99 FL Mean Corpuscular Hemoglobin 31 25-34 PG Mean Corpuscular Hemoglobin Concent 33 32-36 G/DL Red Cell Distribution Width 15.1 H 10.0-14.5 % Platelet Count 223 130-400 10^3/uL Mean Platelet Volume 9.6 7.4-10.4 FL Neutrophils (%) (Auto) 68 42-75 % Lymphocytes (%) (Auto) 20 12-44 % Monocytes (%) (Auto) 10 0-12 % Eosinophils (%) (Auto) 1 0-10 % Basophils (%) (Auto) 1 0-10 % Neutrophils # (Auto) 5.6 1.8-7.8 X 10^3 Lymphocytes # (Auto) 1.7 1.0-4.0 X 10^3 Monocytes # (Auto) 0.8 0.0-1.0 X 10^3 Eosinophils # (Auto) 0.1 0.0-0.3 10^3/uL Basophils # (Auto) 0.0 0.0-0.1 10^3/uL Prothrombin Time 16.3 H 12.2-14.7 SEC INR Comment 1.3 0.8-1.4 Activated Partial Thromboplast Time 35 24-35 SEC Sodium Level 140 135-145 MMOL/L Potassium Level 4.5 3.6-5.0 MMOL/L Chloride Level 110 H 98-107 MMOL/L Carbon Dioxide Level 17 L 21-32 MMOL/L Anion Gap 13 5-14 MMOL/L Blood Urea Nitrogen 16 7-18 MG/DL Creatinine 1.53 H 0.60-1.30 MG/DL Estimat Glomerular Filtration Rate 44 BUN/Creatinine Ratio 10 Glucose Level 170 H 70-105 MG/DL Calcium Level 9.3 8.5-10.1 MG/DL Corrected Calcium 9.3 8.5-10.1 MG/DL Magnesium Level 1.9 1.6-2.4 MG/DL Total Bilirubin 0.5 0.1-1.0 MG/DL Aspartate Amino Transf (AST/SGOT) 23 5-34 U/L Alanine Aminotransferase (ALT/SGPT) 17 0-55 U/L Alkaline Phosphatase 77 40-136 U/L Myoglobin 89.9 10.0-92.0 NG/ML Troponin I < 0.028 <0.028 NG/ML B-Type Natriuretic Peptide 446.6 H <100.0 PG/ML Total Protein 7.0 6.4-8.2 GM/DL Albumin 4.0 3.2-4.5 GM/DL Lactic Acid Level 1.74 0.50-2.00 MMOL/L Physical Exam Physical Exam Vital Signs Vital Signs - First Documented 12/02/18 11:40 Pulse 164 Resp 20 B/P (MAP) 77/63 (68) Pulse Ox 94 O2 Delivery Nasal Cannula O2 Flow Rate 3.00 Capillary Refill : Less Than 3 Seconds Height, Weight, BMI Height: 5'11.00" Weight: 248lbs. 4.0oz. [id number]; 34.51 BMI Method:Stated General Appearance: WD/WN, Moderate Distress HEENT: PERRL/EOMI, Pharynx Normal; No Moist Mucous Membranes Neck: Full Range of Motion, Normal Inspection Respiratory: Lungs Clear, Normal Breath Sounds, No Accessory Muscle Use, No Respiratory Distress Cardiovascular: Regular Rate, Rhythm, No Edema, Normal Peripheral Pulses, Systolic Murmur Gastrointestinal: Normal Bowel Sounds, No Organomegaly, Non Tender, Soft Extremity: Normal Capillary Refill, Normal Inspection, Normal Range of Motion, No Pedal Edema Neurologic/Psychiatric: Alert, Oriented x3, No Motor/Sensory Deficits Skin: Normal Color, Warm/Dry A/P-Cardiology Admission Diagnosis Chest pain Atrial fibrillation with rapid ventricular response Mitral annuloplasty Hypotension Assessment/Plan Chest pain, nonspecific, secondary to tachycardia, patient had a stress test done in July 2018 showing no ischemia or infarction. Continue to monitor, monitor cardiac enzymes and EKG. Next Atrial fibrillation with rapid ventricular response, status post synchronized cardioversion done in the emergency room due to hypotension, currently in sinus rhythm. Was unable to tolerate amiodarone do to severe COPD, did not continue on Multaq due to the cost, currently tolerating sotalol well. Continue to monitor closely Paroxysmal atrial tachycardia had multiple episodes, maintained on sotalol at this time. Continue to monitor History of mitral valve repair with annuloplasty ring [place] [address] Dean, has been asymptomatic, last echocardiogram was done in December 2017 showing normal left ventricular size with ejection fraction 55-65 percent, left atrial dilatation measuring 6.3 cm, the mitral repair showed a valve area of 2.54 cm, moderate severe calcified annulus, mild MR, aortic valve sclerosis, mild AR, PA pressure 40, I will evaluate 2-D echocardiogram [id number] score is 3, yearly risk of stroke without oral anticoagulation is 3.2 percent. Maintained on Eliquis. Continue to monitor. Transient episode of nonsustained ventricular tachycardia occurred in the preoperative area in [facility] on November 01, 2014, evaluated by his own heater room helper with Dr. Ibrahim at [facility], patient underwent Holter monitor February 28, 2015 revealing sinus rhythm with occasional PVCs, ventricular bigeminy, PACs. Short 7 beats of PAT. seen and followed by Dr. Pratt Hypertension, was borderline hypotensive in the emergency room, continue to mon itor blood pressure and restart home medication with parameter to hold blood pressure medication for systolic below 100 Hyperlipidemia, continue to monitor lipids Hemochromatosis- followed by Dr. Lynn. History of heart catheterization done in 2009 and reported to have no sig obstructive disease in his coronaries, continue to monitor no changes are recommended History of syncope after the heart catheterization of unknown etiology. Diabetes mellitus, controlled by diet, followed and managed by primary care physician COPD/Obstructive sleep apnea use C Pap at night, followed and managed by Dr. Jackson, recent PA pressure 50 mg meter mercury per 2-D echocardiogram done October 2016, planning to reevaluate 2D Echo. SJogern syndrome, fibromyalgia, spinal stenosis, osteoporosis, osteoarthritis, left elbow ulnar nerve release, carpal tunnel release, bilateral inguinal hernia repair Nonobstructive carotid artery stenosis-most recent carotid duplex done In November 2017, continue to monitor Clinical Quality Measures DVT/VTE Risk/Contraindication: Risk Factor Score Per Nursin RFS Level Per Nursing on Admit: 3=High MIRLANDE COOPER MD Dec 02, 2018 16:05
[2018-12-02] MEDS ORDERED: RT-ALBUTEROL SULF 2.5 MG/3 ML PRE-MIX VIAL INH PRN (16:15)
[2018-12-02 20:00] VITALS: BP 132/82
[2018-12-02] MEDS ORDERED: NON-FORMULARY MEDICATION 1 EA EA (Sotalol HCl (Sotalol) 80 MG) PO SCH (21:00)
[2018-12-02] MEDS ORDERED: NON-FORMULARY MEDICATION 1 EA EA (Budesonide/Formoterol Fumarate (Symbicort 160-4.5 Mcg In INH SCH (21:00)
[2018-12-02] MEDS ORDERED: PANTOPRAZOLE 40 MG (PROTONIX) TAB PO SCH (21:00)
[2018-12-02] MEDS ORDERED: NON-FORMULARY MEDICATION 1 EA EA (Gemfibrozil 600 MG) PO SCH (21:00)
[2018-12-02] MEDS ORDERED: NON-FORMULARY MEDICATION 1 EA EA (Omeprazole 40 MG) PO SCH (21:00)
[2018-12-02] MEDS: RT-ADVAIR HFA 115/21 MCG PER PUFF IH SCH (21:11)
--- NOTE | 2018-12-02 21:12 | History & Physical ---
History of Present Illness History of Present Illness Reason for visit/HPI PT IS A 78 Y/O MALE WHO IS WELL KNOWN TO ME FROM CLINIC. JESSICA HAD BEEN EXPERIENCING A SENSATION OF RAPID HEART BEAT WHILE IN PULMONARY REHAB TODAY. HE REPORTS THAT IT STARTED AROUND 9AM, AND WHEN HE WAS STILL EXPERIENCING THE SYMPTOMS AT AROUND 1PM, HE CALLED DR. COOPER'S OFFICE AND WAS DIRECTED TO PRESENT TO THE HOSPITAL EMERGENCY DEPARTMENT FOR EMERGENT EVALUATION. HE WAS FOUND TO BE IN AFIB WITH RVR AND WAS CARDIOVERTED IN THE EMERGENCY DEPARTMENT. HE WAS THEN TRANSFERRED UP TO THE CARDIAC STEP-DOWN UNIT FOR MONITORING AND FURTHER EVALUATION BY DR. KRAFT - PELLETIZER TENDER. Date of Admission Dec 02, 2018 at 13:19 Date Seen by a Provider: Dec 02, 2018 Time Seen by a Provider: 20:40 I consulted on this patient on 12/02/18 21:07 Attending Physician Lisa Pruitt MD Admitting Physician Lisa Pruitt MD Consult MIRLANDE COOPER MD Allergies and Home Medications Allergies Coded Allergies: meperidine (Unverified Allergy, Unknown, LOW BP, N/V, 09/12/13) shellfish derived (Unverified Allergy, Unknown, 09/12/13) Home Medications Albuterol Sulfate 1 Puff Puff, 2 PUFF INH Q4H PRN for SHORTNESS OF BREATH, (Reported) 1 PUFF = 90 MCG Apixaban 5 Mg Tablet, 5 MG PO BID, (Reported) Budesonide/Formoterol Fumarate 10.2 Gm Hfa.aer.ad, 2 PUFF INH BID, (Reported) Diltiazem HCl 180 Mg Cap.er.24h, 180 MG PO DAILY, (Reported) Gemfibrozil 600 Mg Tablet, 600 MG PO BID, (Reported) Lisinopril 20 Mg Tablet, 20 MG PO BID, (Reported) Melatonin 3 Mg Tablet, 6-9 MG PO HS PRN for SLEEP, (Reported) TAKES 2 (3MG) TABLETS Montelukast Sodium 10 Mg Tablet, 10 MG PO DAILY, (Reported) Omeprazole 40 Mg Capsule.dr, 40 MG PO HS, (Reported) Pravastatin Sodium 20 Mg Tablet, 20 MG PO DAILY, (Reported) Sildenafil Citrate 20 Mg Tablet, 50 MG PO DAILY PRN for ED, (Reported) TAKES 2 & 1/2 (20MG) TABLETS Sotalol HCl 80 Mg Tablet, 80 MG PO BID, (Reported) Tamsulosin HCl 0.4 Mg Cap, 0.4 MG PO DAILY, (Reported) Testosterone Cypionate 200 Mg/1 Ml Vial, 200 MG INJ EVERY 2 WEEKS, (Reported) Tiotropium [place] 4 Gm Mist.inhal, 2 PUFF IH DAILY, (Reported) Tramadol HCl 50 Mg Tablet, 50-100 MG PO QID PRN for PAIN-MODERATE, (Reported) Patient Home Medication List Home Medication List Reviewed: Yes Past Fwhksmq-Esbjom-Icrxzb Hx Past Med/Social Hx: Reviewed Nursing Past Med/Soc Hx Patient Social History Marrital Status: Employed/Student: employed Alcohol Use: Denies Use Recreational Drug Use: No Smoking Status: Never a Smoker 2nd Hand Smoke Exposure: No Recent Foreign Travel: No Contact w/other who traveled: No Recent Hopitalizations: No Recent Infectious Disease Expo: No Immunizations Up To Date Tetanus Booster (TDap): Unknown Date of Pneumonia Vaccine: Nov 09, 2012 Date of Influenza Vaccine: Nov 02, 2018 Past Medical History Surgeries: Abdominal, Cardiac, Eye Surgery, Lobectomy Currently Using CPAP: Yes Currently Using BIPAP: No Cardiac: Atrial Fibrillation, Coronary Artery Disease, High Cholesterol, Hypertension, Valvular Heart Disease Reproductive: No Sexually Transmitted Disease: No HIV/AIDS: No Gastrointestinal: Gastroesophageal Reflux, Jackson's Esophagus Musculoskeletal: Arthritis, Fibromyalgia Endocrine: Diabetes, Non-Insulin dep HEENT: Cataract Cancer: Skin Did You Recieve Any Treatments: Yes What Type of Treatment Did You: Surgical Intervention History of Blood Disorders: No Family History Reviewed Nursing Family Hx Cancer (GRANDDAUGHTER - LEUKEMIA) Review of Systems Constitutional: No chills, No fever, No malaise, No weakness EENTM: hearing loss; No hoarseness, No throat pain Respiratory: No cough; dyspnea on exertion, short of breath Cardiovascular: No chest pain, No edema; Hx of Intervention, palpitations Gastrointestinal: No abdominal pain, No constipation, No diarrhea, No loss of appetite, No nausea, No vomiting Genitourinary: no symptoms reported Musculoskeletal: back pain, muscle weakness Skin: no symptoms reported Psychiatric/Neurological: Denies Anxiety, Denies Depressed, Denies Weakness All Other Systems Reviewed Negative Unless Noted: Yes Physical Exam Vital Signs Vital Signs - First Documented 12/02/18 12/02/18 11:40 13:45 Temp 36.5 Pulse 164 Resp 20 B/P (MAP) 77/63 (68) Pulse Ox 94 O2 Delivery Nasal Cannula O2 Flow Rate 3.00 Capillary Refill : Less Than 3 Seconds Height, Weight, BMI Height: 5'11.00" Weight: 248lbs. 4.0oz. 112.921982ci; 34.51 BMI Method:Stated General Appearance: No Apparent Distress, WD/WN Eyes: Bilateral Eye Normal Inspection, Bilateral Eye PERRL, Bilateral Eye EOMI HEENT: PERRL/EOMI, Pharynx Normal Neck: Full Range of Motion, Non Tender, Supple Respiratory: Chest Non Tender, Lungs Clear; No Crackles; Decreased Breath Sounds (THROUGHOUT) Cardiovascular: Regular Rate, Rhythm Gastrointestinal: Normal Bowel Sounds, No Organomegaly, No Pulsatile Mass, Non Tender, Soft Rectal: Deferred Back: Normal Inspection Extremity: Normal Capillary Refill, Normal Inspection, Normal Range of Motion, Non Tender, No Calf Tenderness, No Pedal Edema Neurologic/Psychiatric: Alert, Oriented x3, No Motor/Sensory Deficits, Normal Mood/Affect Skin: Normal Color, Warm/Dry Lymphatic: No Adenopathy Assessment/Plan Assessment and Plan ATRIAL FIBRILLATION WITH RVR - STATUS POST-CARDIOVERSION HYPERTENSION HYPERLIPIDEMIA COPD OXYGEN DEPENDENCE ATRIAL FIBRILLATION WITH RVR - STATUS POST-CARDIOVERSION - PT WAS CARDIOVERTED IN THE EMERGENCY DEPARTMENT - HIS HOME REGIMEN WAS RESTARTED AND FEAROLL HAS BEEN FEELING WELL SINCE THAT TIME. WE WILL DEFER HIS TREATMENT TO CARDIOLOGY - THEY ARE TALKING ABOUT POSSIBLE ABLATIVE PROCEDURE. HYPERTENSION - BP STABLE - CONTINUE HOME REGIMEN HYPERLIPIDEMIA - PT ON PRAVASTATIN AND GEMFIBROZIL OUTPT - DOSE OF SIMVASTATIN IN HOSPITAL TODAY - WILL RESUME HIS HOME REGIMEN ON DISCHARGE COPD WITH CHRONIC OXYGEN DEPENDENCE - CONTINUE WITH OXYGEN AT 2 LITERS NC, SINGULAIR, BREATHING TREATMENTS, SPIRIVA, ETC, PT IS STABLE MEDICALLY FROM A RESPIRATORY STANDPOINT. Admission Diagnosis ATRIAL FIBRILLATION WITH RVR - STATUS POST-CARDIOVERSION HYPERTENSION HYPERLIPIDEMIA COPD OXYGEN DEPENDENCE ATRIAL FIBRILLATION WITH RVR - STATUS POST-CARDIOVERSION - PT WAS CARDIOVERTED IN THE EMERGENCY DEPARTMENT - HIS HOME REGIMEN WAS RESTARTED AND JESSICA HAS BEEN FEELING WELL SINCE THAT TIME. WE WILL DEFER HIS TREATMENT TO CARDIOLOGY - THEY ARE TALKING ABOUT POSSIBLE ABLATIVE PROCEDURE. HYPERTENSION - BP STABLE - CONTINUE HOME REGIMEN HYPERLIPIDEMIA - PT ON PRAVASTATIN AND GEMFIBROZIL OUTPT - DOSE OF SIMVASTATIN IN HOSPITAL TODAY - WILL RESUME HIS HOME REGIMEN ON DISCHARGE COPD WITH CHRONIC OXYGEN DEPENDENCE - CONTINUE WITH OXYGEN AT 2 LITERS NC, SINGULAIR, BREATHING TREATMENTS, SPIRIVA, ETC, PT IS STABLE MEDICALLY FROM A RESPIRATORY STANDPOINT. Admission Status: Inpatient Order (span 2 midnights) Reason for Inpatient Admission: AFIB WITH RVR Clinical Quality Measures DVT/VTE Risk/Contraindication: Risk Factor Score Per Nursin RFS Level Per Nursing on Admit: 3=High LISA PRUITT MD Dec 02, 2018 21:12
[2018-12-02] MEDS ORDERED: MELATONIN 3 MG TABLET PO SCH (21:15)
[2018-12-02] MEDS: APIXABAN 5 MG (ELIQUIS) TABLET PO SCH (21:31)
[2018-12-02] MEDS: GEMFIBROZIL 600 MG (LOPID) TAB PO SCH (21:31)
[2018-12-02] MEDS: SOTALOL 80 MG (BETAPACE) TAB PO SCH (21:31)
[2018-12-02] MEDS: lisINopril 20 MG (PRINIVIL) TABLET PO SCH (21:31)
[2018-12-02] MEDS ORDERED: MELATONIN 3 MG TABLET ONE (21:37)
[2018-12-02] MEDS: CATHETER FLUSH 10 ML SYR IV SCH (21:40)
[2018-12-02] MEDS: inSUlin ASPART (NovoLOG) 1 UNIT/0.01 ML (CHARGE PER UNIT) SC SCH ×2 (21:40→21:41)
[2018-12-03] VITALS: BP 117/77
[2018-12-03 04:08] VITALS: BP 151/88
[2018-12-03 05:31] LABS: BASOPHILS % (AUTO) 1 % (0-10); EOSINOPHILS # (AUTO) 0.1 10^3/uL (0.0-0.3); EOSINOPHILS % (AUTO) 1 % (0-10); HEMATOCRIT 44 % (40-54); HEMOGLOBIN 14.3 G/DL (13.3-17.7); LYMPHOCYTES # (AUTO) 1.4 X 10^3 (1.0-4.0); LYMPHOCYTES % (AUTO) 23 % (12-44); MEAN CORPUSCULAR HEMOGLOBIN 32 PG (25-34); MEAN CORPUSCULAR HGB CONC 33 G/DL (32-36); MEAN CORPUSCULAR VOLUME 97 FL (80-99); MONOCYTES # (AUTO) 0.7 X 10^3 (0.0-1.0); MONOCYTES % (AUTO) 13 % (0-12); NEUTROPHILS # (AUTO) 3.7 X 10^3 (1.8-7.8); NEUTROPHILS % (AUTO) 62 % (42-75); PLATELET COUNT 170 10^3/uL (130-400); RED CELL DISTRIBUTION WIDTH 14.8 % (10.0-14.5); WHITE BLOOD COUNT 5.9 10^3/uL (4.3-11.0)
[2018-12-03 05:51] LABS: ALANINE AMINOTRANSFERASE 18 U/L (0-55); ALBUMIN 3.5 GM/DL (3.2-4.5); ALKALINE PHOSPHATASE 71 U/L (40-136); BILIRUBIN,TOTAL 0.6 MG/DL (0.1-1.0); BUN/CREATININE RATIO 13; CALCIUM 8.7 MG/DL (8.5-10.1); CARBON DIOXIDE 18 MMOL/L (21-32); CHLORIDE 113 MMOL/L (98-107); CHOLESTEROL 106 MG/DL (< 200); CREATININE SERUM 0.99 MG/DL (0.60-1.30); GFR ESTIMATED > 60; GLUCOSE 86 MG/DL (70-105); HDL CHOLESTEROL 28 MG/DL (40-60); MAGNESIUM 1.8 MG/DL (1.6-2.4); POTASSIUM 4.1 MMOL/L (3.6-5.0); SODIUM 140 MMOL/L (135-145); TRIGLYCERIDES 63 MG/DL (<150); VLDL CHOLESTEROL 13 MG/DL (5-40)
[2018-12-03] MEDS: CATHETER FLUSH 10 ML SYR IV SCH (06:28)
[2018-12-03] MEDS: inSUlin ASPART (NovoLOG) 1 UNIT/0.01 ML (CHARGE PER UNIT) SC SCH (06:28)
[2018-12-03 08:00] VITALS: BP 148/80
[2018-12-03] MEDS ORDERED: UMECLIDINIUM BROMIDE (INCRUSE ELLIPTA) 7'S IH SCH (08:00)
[2018-12-03] MEDS: RT-ADVAIR HFA 115/21 MCG PER PUFF IH SCH (08:05)
[2018-12-03] MEDS ORDERED: NON-FORMULARY MEDICATION 1 EA EA (Diltiazem HCl (Cartia Xt) 180 MG) PO SCH (09:00)
[2018-12-03] MEDS ORDERED: DILTIAZEM 180 MG (CARDIZEM CD) CAP PO SCH (09:00)
[2018-12-03] MEDS ORDERED: NON-FORMULARY MEDICATION 1 EA EA (Pravastatin Sodium 20 MG) PO SCH (09:00)
[2018-12-03] MEDS ORDERED: MONTELUKAST 10 MG (SINGULAIR) TAB PO SCH (09:00)
[2018-12-03] MEDS ORDERED: TAMSULOSIN 0.4 MG (FLOMAX) CAP PO SCH (09:00)
[2018-12-03] MEDS ORDERED: NON-FORMULARY MEDICATION 1 EA EA (Tiotropium Bromide (Spiriva Respimat 2.5MCG/ACTUATION) 2 IH SCH (09:00)
--- NOTE | 2018-12-03 09:20 | Discharge Inst-Complex ---
PDI Reconcile Patient Problems Problems Reviewed?: Yes Med Rec & Follow Up Appt. Continued Medications: Albuterol Sulfate (Ventolin Hfa) 1 Puff Puff 2 PUFF INH Q4H PRN for SHORTNESS OF BREATH, INHALER 1 PUFF = 90 MCG Apixaban (Eliquis) 5 Mg Tablet 5 MG PO BID, TAB Budesonide/Formoterol Fumarate (Symbicort 160-4.5 Mcg Inhaler) 10.2 Gm Hfa.aer.ad 2 PUFF INH BID, INHALER Diltiazem HCl (Cartia Xt) 180 Mg Cap.er.24h 180 MG PO DAILY, CAP Gemfibrozil (Gemfibrozil) 600 Mg Tablet 600 MG PO BID, TAB Lisinopril (Lisinopril) 20 Mg Tablet 20 MG PO BID, TAB Melatonin (Melatonin) 3 Mg Tablet 6-9 MG PO HS PRN for SLEEP, TAB TAKES 2 (3MG) TABLETS Montelukast Sodium (Montelukast Sodium) 10 Mg Tablet 10 MG PO DAILY, TAB Omeprazole (Omeprazole) 40 Mg Capsule.dr 40 MG PO HS, CAP Pravastatin Sodium (Pravastatin Sodium) 20 Mg Tablet 20 MG PO DAILY, TAB Sildenafil Citrate (Sildenafil) 20 Mg Tablet 50 MG PO DAILY PRN for ED, TAB TAKES 2 & 1/2 (20MG) TABLETS Sotalol HCl (Sotalol) 80 Mg Tablet 80 MG PO BID, TAB Tamsulosin HCl (Flomax) 0.4 Mg Cap 0.4 MG PO DAILY, CAP Testosterone Cypionate (Testosterone Cypionate) 200 Mg/1 Ml Vial 200 MG INJ EVERY 2 WEEKS, EA Tiotropium [place] (Spiriva Respimat 2.5MCG/ACTUATION) 4 Gm Mist.inhal 2 PUFF IH DAILY, INH Tramadol HCl (Tramadol HCl) 50 Mg Tablet 50-100 MG PO QID PRN for PAIN-MODERATE, TAB Patient Instructions: WILL NEED FOLLOW UP APPT WITH : BERNIE BABB IN [address] KRAFT IN 2 WKS Activity, Diet and PDI Resume Normal Activity: Yes Discharge Diet: Avoid Fatty Foods Diet After 24 Hours: Resume Home Diet Drink 6-8 Glasses of Fluid/Day: Yes Driving Instructions: You May Drive Symptoms to Reoprt to : Appetite Changes, Fever Over 101 Degrees F, Pain/Pressure in Chest, Questions/Concerns, Shortness of Breath (BEYOND USUAL SHORTNESS OF BREATH) For Problems or Questions: Contact Your Physician, Go to Emergency Room REJI GIBBS MD Dec 03, 2018 09:20
--- NOTE | 2018-12-03 09:22 | Discharge Summary ---
Diagnosis/Chief Complaint Date of Admission Dec 02, 2018 at 13:19 Date of Discharge Discharge Date: Dec 03, 2018 Discharge Time: 1230 Admission Diagnosis Admission Diagnosis ATRIAL FIBRILLATION WITH RVR - STATUS POST-CARDIOVERSION HYPERTENSION HYPERLIPIDEMIA COPD OXYGEN DEPENDENCE Discharge Diagnosis ATRIAL FIBRILLATION WITH RVR - STATUS POST-CARDIOVERSION HYPERTENSION HYPERLIPIDEMIA COPD OXYGEN DEPENDENCE Reason Hospital Visit PT IS A 78 Y/O MALE WHO IS WELL KNOWN TO ME FROM CLINIC. JESSICA HAD BEEN EXPERIENCING A SENSATION OF RAPID HEART BEAT WHILE IN PULMONARY REHAB TODAY. HE REPORTS THAT IT STARTED AROUND 9AM, AND WHEN HE WAS STILL EXPERIENCING THE SYMPTOMS AT AROUND 1PM, HE CALLED DR. COOPER'S OFFICE AND WAS DIRECTED TO PRESENT TO THE HOSPITAL EMERGENCY DEPARTMENT FOR EMERGENT EVALUATION. HE WAS FOUND TO BE IN AFIB WITH RVR AND WAS CARDIOVERTED IN THE EMERGENCY DEPARTMENT. HE WAS THEN TRANSFERRED UP TO THE CARDIAC STEP-DOWN UNIT FOR MONITORING AND FURTHER EVALUATION BY DR. KRAFT - WOOD CARVER HAND. Discharge Summary Discharge Physical Examination Allergies: Coded Allergies: meperidine (Unverified Allergy, Unknown, LOW BP, N/V, 09/12/13) shellfish derived (Unverified Allergy, Unknown, 09/12/13) Vitals & I&Os Vital Signs Date Time Temp Pulse Resp B/P (MAP) Pulse Ox O2 Delivery O2 Flow Rate FiO2 12/03/18 08:06 90 Room Air 12/03/18 08:00 36.6 64 19 148/80 (102) 3.00 Hospital Course ATRIAL FIBRILLATION WITH RVR - STATUS POST-CARDIOVERSION HYPERTENSION HYPERLIPIDEMIA COPD OXYGEN DEPENDENCE ATRIAL FIBRILLATION WITH RVR - STATUS POST-CARDIOVERSION - PT WAS CARDIOVERTED IN THE EMERGENCY DEPARTMENT - HIS HOME REGIMEN WAS RESTARTED AND JESSICA HAS BEEN FEELING WELL SINCE THAT TIME. WE WILL DEFER HIS TREATMENT TO CARDIOLOGY - THEY ARE TALKING ABOUT POSSIBLE ABLATIVE PROCEDURE. HYPERTENSION - BP STABLE - CONTINUE HOME REGIMEN HYPERLIPIDEMIA - PT ON PRAVASTATIN AND GEMFIBROZIL OUTPT - DOSE OF SIMVASTATIN IN HOSPITAL TODAY - WILL RESUME HIS HOME REGIMEN ON DISCHARGE COPD WITH CHRONIC OXYGEN DEPENDENCE - CONTINUE WITH OXYGEN AT 2 LITERS NC, SINGULAIR, BREATHING TREATMENTS, SPIRIVA, ETC, PT IS STABLE MEDICALLY FROM A RESPIRATORY STANDPOINT. Pending Labs Laboratory Tests 12/03/18 05:15: White Blood Count 5.9, Red Blood Count 4.53, Hemoglobin 14.3, Hematocrit 44, Mean Corpuscular Volume 97, Mean Corpuscular Hemoglobin 32, Mean Corpuscular Hemoglobin Concent 33, Red Cell Distribution Width 14.8, Platelet Count 170, Mean Platelet Volume 10.0, Neutrophils (%) (Auto) 62, Lymphocytes (%) (Auto) 23, Monocytes (%) (Auto) 13, Eosinophils (%) (Auto) 1, Basophils (%) (Auto) 1, Neutrophils # (Auto) 3.7, Lymphocytes # (Auto) 1.4, Monocytes # (Auto) 0.7, Eosinophils # (Auto) 0.1, Basophils # (Auto) 0.0, Sodium Level 140, Potassium Level 4.1, Chloride Level 113, Carbon Dioxide Level 18, Anion Gap 9, Blood Urea Nitrogen 13, Creatinine 0.99, Estimat Glomerular Filtration Rate > 60, BUN/Creatinine Ratio 13, Glucose Level 86, Calcium Level 8.7, Corrected Calcium 9.1, Magnesium Level 1.8, Total Bilirubin 0.6, Aspartate Amino Transf (AST/SGOT) 21, Alanine Aminotransferase (ALT/SGPT) 18, Alkaline Phosphatase 71, Troponin I < 0.028, Total Protein 6.0, Albumin 3.5, Triglycerides Level 63, Cholesterol Level 106, LDL Cholesterol Direct 69, VLDL Cholesterol 13, HDL Cholesterol 28, Thyroid Stimulating Hormone (TSH) 1.55 Discharge Instructions to patient/family Please see electronic discharge instructions given to patient. Discharge Medications Reviewed and agree with Discharge Medication list on patient's Discharge Instruction sheet Clinical Quality Measures DVT/VTE Risk/Contraindication: Risk Factor Score Per Nursin RFS Level Per Nursing on Admit: 3=High REJI GIBBS MD Dec 03, 2018 09:22
[2018-12-03] MEDS: SOTALOL 80 MG (BETAPACE) TAB PO SCH (09:30)
[2018-12-03] MEDS: APIXABAN 5 MG (ELIQUIS) TABLET PO SCH (10:13)
[2018-12-03] MEDS: GEMFIBROZIL 600 MG (LOPID) TAB PO SCH (10:14)
--- NOTE | 2018-12-03 10:47 | Cardiology Progress Note ---
Subjective Date Seen by Provider: Dec 03, 2018 Time Seen by Provider: 10:46 Subjective/Events-last exam Patient is sitting in bed, feeling better, breathing better, no chest pain. Review of Systems General: No Chills, No Night Sweats, No Fatigue, No Malaise, No Appetite, No Other HEENT: No Head Aches, No Visual Changes, No Eye Pain, No Ear Pain, No Dysphasia, No Sinus Congestion, No Post Nasal Drip, No Sore Throat, No Other Pulmonary: Dyspnea; No Cough, No Pleuritic Chest Pain, No Other Cardiovascular: No: Chest Pain, Palpitations, Orthopnea, Paroxysmal Noc. Dyspnea, Edema, Lt Headedness, Other Focused Exam Lactate Level 12/02/18 12:45: Lactic Acid Level 1.74 Objective-Cardiology Exam Last Set of Vital Signs Vital Signs 12/03/18 12/03/18 08:00 08:06 Temp 36.6 Pulse 64 Resp 19 B/P (MAP) 148/80 (102) Pulse Ox 90 O2 Delivery Room Air O2 Flow Rate 3.00 Capillary Refill : Less Than 3 Seconds I&O Intake and Output 12/03/18 00:00 Intake Total 3685 ml Balance 3685 ml Intake Oral 675 ml IV Total 3010 ml # Voids 3 Daily Weight Change No General: Alert, Oriented X3, Cooperative HEENT: Atraumatic, PERRLA Neck: Supple, No JVD, No Thyromegaly Lungs: Clear to Auscultation, Normal Air Movement Heart: Regular Rate, Normal S1, Normal S2, Other (Systolic murmur at the left sternal border) Abdomen: Normal Bowel Sounds, Soft, No Tenderness, No Hepatosplenomegaly, No Masses Extremities: No Clubbing, No Cyanosis, No Edema, Normal Pulses, No Tenderness/Swelling Skin: No Rashes, No Breakdown, No Significant Lesion Neuro: Normal Gait, Normal Speech, Strength at 5/5 X4 Ext, Normal Tone, Sensation Intact Psych/Mental Status: Mental Status NL, Mood NL Results Lab Laboratory Tests 12/02/18 11:58 12/03/18 05:15 A/P-Cardiology Admission Diagnosis Chest pain Atrial fibrillation with rapid ventricular response Mitral annuloplasty Hypotension Assessment/Plan Chest pain, nonspecific, secondary to tachycardia, patient had a stress test done in July 2018 showing no ischemia or infarction. Better today. Continue to monitor Paroxysmal atrial fibrillation, has synchronized cardioversion done in the e mergency room, currently in sinus rhythm and doing well. Severe COPD, oxygen dependent. No change from baseline. Continue to monitor Paroxysmal atrial tachycardia had multiple episodes, maintained on sotalol at this time. Continue to monitor History of mitral valve repair with annuloplasty ring [place] [address] Dean, has been asymptomatic, last echocardiogram was done in December 2017 showing normal left ventricular size with ejection fraction 55-65 percent, left atrial dilatation measuring 6.3 cm, the mitral repair showed a valve area of 2.54 cm, moderate severe calcified annulus, mild MR, aortic valve sclerosis, mild AR, PA pressure 40, I will evaluate 2-D echocardiogram [id number] score is 3, yearly risk of stroke without oral anticoagulation is 3.2 percent. Maintained on Eliquis. Continue to monitor. Transient episode of nonsustained ventricular tachycardia occurred in the preoperative area in [facility] on November 01, 2014, evaluated by his own sales developer with Dr. Ibrahim at [facility], patient underwent Holter monitor February 28, 2015 revealing sinus rhythm with occasional PVCs, ventricular bigeminy, PACs. Short 7 beats of PAT. seen and followed by Dr. Pratt Hypertension, was borderline hypotensive in the emergency room, continue to monitor blood pressure and restart home medication with parameter to hold blood pressure medication for systolic below 100 Hyperlipidemia, continue to monitor lipids Hemochromatosis- followed by Dr. Lynn. History of heart catheterization done in 2009 and reported to have no sig obs tructive disease in his coronaries, continue to monitor no changes are recommended History of syncope after the heart catheterization of unknown etiology. Diabetes mellitus, controlled by diet, followed and managed by primary care physician COPD/Obstructive sleep apnea use C Pap at night, followed and managed by Dr. Jackson, recent PA pressure 50 mg meter mercury per 2-D echocardiogram done Oct, planning to reevaluate 2D Echo. SJogern syndrome, fibromyalgia, spinal stenosis, osteoporosis, osteoarthritis, left elbow ulnar nerve release, carpal tunnel release, bilateral inguinal hernia repair Nonobstructive carotid artery stenosis-most recent carotid duplex done In November 2017, continue to monitor Clinical Quality Measures DVT/VTE Risk/Contraindication: Risk Factor Score Per Nursin RFS Level Per Nursing on Admit: 3=High MIRLANDE COOPER MD Dec 03, 2018 10:47
[2018-12-03 12:00] VITALS: BP 161/90
--- NOTE | 2018-12-03 12:05 | Cardiology Progress Note ---
Cardiology SOAP Progress Note Subjective: Stayed in sinus rhythm. Objective: I&O/Vital Signs 12/03/18 12/03/18 12/03/18 12/03/18 00:55 03:53 04:08 07:00 Temp 36.7 Pulse 51 54 75 Resp 18 B/P (MAP) 151/88 (109) Pulse Ox 95 O2 Delivery Nasal Cannula NIV CPAP O2 Flow Rate 4.00 12/03/18 12/03/18 12/03/18 08:00 08:06 09:00 Temp 36.6 Pulse 64 Resp 19 B/P (MAP) 148/80 (102) Pulse Ox 94 90 O2 Delivery Nasal Cannula Room Air Nasal Cannula O2 Flow Rate 3.00 4.00 12/03/18 00:00 Intake Total 3685 ml Balance 3685 ml Weight (Pounds): 248 Weight (Ounces): 4.0 Weight (Calculated Kilograms): [id number] Constitutional: appears stated age, AAO x 3; No apparent distress; well- developed, well-nourished Respiratory: chest is bilaterally symmetric, lungs clear to auscultation Cardiovascular: regular rate-rhythm; No irregularly irregular, No extra beats, No parasternal heave is noted, No JVD, No edema, No bradycardia, No tachycardia, No point of maximal impulse, No cardiac thrills are palpable; S1 and S2; No gallop/S3, No gallop/S4, No diastolic murmur, No systolic murmur, No friction rub, No click, No other Gastrointestional: soft, audible bowel sounds; No spleenomegaly Extremities: normal range of motion, non-tender, normal inspection; No clubbing, No cyanosis; no lower extremity edema bilateral; No significant edema Neurologic/Psychiatric: no motor/sensory deficits, alert, normal mood/affect, oriented x 3, power is 5/5 both on sides Skin: normal color, warm/dry; No rash, No ulcerations Results/Procedures: Labs Laboratory Tests 12/02/18 12:45: Lactic Acid Level 1.74 12/02/18 17:55: Troponin I < 0.028 12/03/18 00:39: Troponin I < 0.028 12/03/18 05:15: Troponin I < 0.028, White Blood Count 5.9, Red Blood Count 4.53, Hemoglobin 14.3, Hematocrit 44, Mean Corpuscular Volume 97, Mean Corpuscular Hemoglobin 32, Mean Corpuscular Hemoglobin Concent 33, Red Cell Distribution Width 14.8H, Platelet Count 170, Mean Platelet Volume 10.0, Neutrophils (%) (Auto) 62, Lymphocytes (%) (Auto) 23, Monocytes (%) (Auto) 13H, Eosinophils (%) (Auto) 1, Basophils (%) (Auto) 1, Neutrophils # (Auto) 3.7, Lymphocytes # (Auto) 1.4, Monocytes # (Auto) 0.7, Eosinophils # (Auto) 0.1, Basophils # (Auto) 0.0, Sodium Level 140, Potassium Level 4.1, Chloride Level 113H, Carbon Dioxide Level 18L, Anion Gap 9, Blood Urea Nitrogen 13, Creatinine 0.99, Estimat Glomerular Filtration Rate > 60, BUN/Creatinine Ratio 13, Glucose Level 86, Calcium Level 8.7, Corrected Calcium 9.1, Magnesium Level 1.8, Total Bilirubin 0.6, Aspartate Amino Transf (AST/SGOT) 21, Alanine Aminotransferase (ALT/SGPT) 18, Alkaline Phosphatase 71, Total Protein 6.0L, Albumin 3.5, Triglycerides Level 63, Cholesterol Level 106, LDL Cholesterol Direct 69, VLDL Cholesterol 13, HDL Cholesterol 28L, Thyroid Stimulating Hormone (TSH) 1.55 Microbiology 12/02/18 Influenza Types A,B Antigen (NO) - Final, Complete A/P: Assessment/Dx: Atrial fibrillation with rapid ventricular rate, hypotension, Oxygen dependent COPD Plan: Continue Eliquis, sotalol for now. Systolic blood pressure 140 mmHg today. We'll increase the dose of Cardizem to 240 mg on discharge. Patient currently in sinus rhythm. Okay to discharge and follow-up as an outpatient with both Dr. Nur and myself. Due to his oxygen dependent COPD, the success rate of persistent atrial fibrillation ablation is at best modest. I've discussed at length with the patient and family. He can get an opinion from electrophysiology in [place]. If they also think that success rate with atrial fibrillation ablation is not worth the effort, the other option is AV imani ablation with permanent pacemaker. This was discussed with the patient and significant other. Thank you for your consultation. Please call me if you have any questions. Marco Pratt MD, FACP, FACC, FSCAI, FHRS, CCDS Interventional Cardiology Cardiac Electrophysiology Vascular Medicine and Endovascular Interventions Omar PRATT MD Dec 03, 2018 12:05
[2018-12-03] MEDS: lisINopril 20 MG (PRINIVIL) TABLET PO SCH (12:17)
[2018-12-03] MEDS ORDERED: SIMvastatin 10 MG (ZOCOR) TAB PO SCH (21:00)
== END 2018-12-03 14:05 | disposition home or self-care (01) | DRG 310 ==
LOC: EDUNIT# 11:32 → ER 11:32 → CSD 13:19
PROVIDERS: ADMIT Family Medicine; ATTEND Family Medicine
PROC: 5A2204Z Restoration of Cardiac Rhythm, Single (ICD-10-PCS; principal; 2018-12-02)
DX: I48.19 Other persistent atrial fibrillation (principal); I48.0 Paroxysmal atrial fibrillation; J43.9 Emphysema, unspecified; I95.9 Hypotension, unspecified; R07.9 Chest pain, unspecified; I47.1 Supraventricular tachycardia; I10 Essential (primary) hypertension; E78.5 Hyperlipidemia, unspecified; E83.119 Hemochromatosis, unspecified; E11.9 Type 2 diabetes mellitus without complications; G47.33 Obstructive sleep apnea (adult) (pediatric); M35.00 Sjogren syndrome, unspecified; M79.7 Fibromyalgia; M81.0 Age-related osteoporosis without current pathological fracture; M48.00 Spinal stenosis, site unspecified; I65.29 Occlusion and stenosis of unspecified carotid artery; I25.10 Atherosclerotic heart disease of native coronary artery without angina pectoris; E78.00 Pure hypercholesterolemia, unspecified; K21.9 Gastro-esophageal reflux disease without esophagitis; K22.70 Barrett's esophagus without dysplasia; H26.9 Unspecified cataract; M17.12 Unilateral primary osteoarthritis, left knee; G25.81 Restless legs syndrome; Z85.828 Personal history of other malignant neoplasm of skin; Z95.2 Presence of prosthetic heart valve; Z99.81 Dependence on supplemental oxygen
CPT/HCPCS: 36415; 71045; 80053; 80061; 82962; 83605; 83735; 83874; 83880; 84443; 84484; 85025; 85027; 85610; 85730; 87040; 87804; 92960; 93005; 93041; 93306; 94640; 94760; 96361; 96374

== ENCOUNTER → 2019-01-13 | Outpatient (CLI) | payer MEDICARE ==
[~2019-01-13] MED LIST changes: +DILT-28 PO; +DILT180C54 PO; -DILT180C90 PO; -MELA3TAB PO; +MELA3TAB65 PO; +OMEP40CA27 PO; +SOTA80TA62 PO; -TAMS0.4C98 PO; +TRM50T PO
--- NOTE | 2019-01-13 15:00 | Diagnostic Imaging Report ---
PROCEDURE: CT chest without contrast. TECHNIQUE: Multiple contiguous axial images were obtained through the chest without the use of intravenous contrast. Auto Exposure Controls were utilized during the CT exam to meet ALARA standards for radiation dose reduction. INDICATION: Follow-up nodule. Currently asymptomatic. COMPARISON: 10/18/2018 FINDINGS: The heart size is enlarged. No pericardial effusion is present. The main pulmonary artery trunk is dilated. There is no mediastinal, hilar, or axillary lymphadenopathy. Severe emphysema is again noted throughout the lungs, greatest in the apices. There is redemonstration of traction bronchiectasis and honeycombing in the lung bases. Biapical scarring is present. There is decreased focal nodularity in the left upper lobe, now measuring 0.6 cm (image 23 series 4), previously measuring 1.3 cm. This likely represents decreased atelectasis or inflammatory component. No new suspicious pulmonary nodules are seen. No central endobronchial obstructing lesions are identified. There is no pleural effusion or pneumothorax. The osseous structures demonstrate no acute abnormalities. Limited views of the upper abdominal structures demonstrate no acute abnormalities. Pancreatic calcifications are again noted. A small hiatal hernia is seen. Both adrenal glands are unremarkable. IMPRESSION: 1. Interval decrease in size in the left upper lobe nodule, now measuring 0.6 cm, previously measuring 1.3 cm. This most likely represents improved infectious or inflammatory process or improved atelectasis. No new suspicious pulmonary nodules are visualized. Recommend 12-month follow-up chest CT. 2. Fibrotic changes in the lung bases with severe emphysema greatest in the apices. 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 3. Cardiomegaly with dilation of the main pulmonary artery trunk. These findings can be seen with pulmonary hypertension. Dictated by: Dictated on workstation # [id number]
== END ==
LOC: RAD 09:59
PROVIDERS: ATTEND Nurse Practitioner Family
DX: I51.7 Cardiomegaly (principal); J84.10 Pulmonary fibrosis, unspecified; J43.9 Emphysema, unspecified; R91.1 Solitary pulmonary nodule; R94.2 Abnormal results of pulmonary function studies; Z87.891 Personal history of nicotine dependence
CPT/HCPCS: 71250

== ENCOUNTER → 2019-02-15 | Outpatient (RCR) | payer MEDICARE ==
[2018-11-23 08:05] VITALS: BP 132/68
[2018-11-23 09:07] VITALS: BP 130/80
[2018-11-25 08:06] VITALS: BP 115/75
[2018-11-25 09:10] VITALS: BP 135/80
[2018-11-30 08:00] VITALS: BP 140/50
[2018-11-30 09:00] VITALS: BP 130/72
[2018-12-02 08:00] VITALS: BP 120/70
[2018-12-02 09:30] VITALS: BP 132/70
[2018-12-07 08:07] VITALS: BP 135/65
[2018-12-07 09:05] VITALS: BP 110/60
[2018-12-09 08:00] VITALS: BP 140/50
[2018-12-09 09:30] VITALS: BP 140/68
[2018-12-14 08:00] VITALS: BP 130/90
[2018-12-14 09:30] VITALS: BP 120/60
[2018-12-16 08:00] VITALS: BP 120/55
[2018-12-21 08:00] VITALS: BP 140/50
[2018-12-21 09:00] VITALS: BP 122/50
[2018-12-23 08:00] VITALS: BP 130/62
[2018-12-23 09:10] VITALS: BP 130/60
[2018-12-28 08:00] VITALS: BP 110/70
[2018-12-28 08:40] VITALS: BP 108/64
[2018-12-30 08:08] VITALS: BP 94/60
[2018-12-30 09:00] VITALS: BP 130/60
[2019-01-11 08:00] VITALS: BP 110/70
[2019-01-11 09:05] VITALS: BP 128/80
[2019-01-13 08:00] VITALS: BP 130/60
[2019-01-13 08:45] VITALS: BP 115/60
[2019-01-18 08:00] VITALS: BP 130/60
[2019-01-18 09:00] VITALS: BP 115/62
[2019-01-20 08:00] VITALS: BP 150/60
[2019-01-20 09:00] VITALS: BP 120/80
[2019-01-27 08:00] VITALS: BP 102/68
[2019-01-27 09:09] VITALS: BP 118/60
[2019-02-08 08:00] VITALS: BP 130/60
[2019-02-08 09:30] VITALS: BP 140/100
[2019-02-10 08:05] VITALS: BP 140/82
[2019-02-10 09:00] VITALS: BP 117/80
[~2019-02-15] MED LIST changes: -DILT-28 PO; +DILT180C90 PO; +MELA3TAB PO; -MELA3TAB65 PO; -OMEP40CA27 PO; +TAMS0.4C98 PO
[2019-02-15 08:00] VITALS: BP 118/80
[2019-02-15 08:59] VITALS: BP 120/60
== END | disposition home or self-care (01) ==
LOC: PULM 11-17 15:08
PROVIDERS: ATTEND Nurse Practitioner Family
DX: J84.10 Pulmonary fibrosis, unspecified (principal)
CPT/HCPCS: 99211

== ENCOUNTER 2019-03-08 10:53 | Outpatient (RCR) | payer MEDICARE ==
[2018-12-27 11:02] LABS: BASOPHILS % (AUTO) 1 % (0-10); EOSINOPHILS # (AUTO) 0.1 10^3/uL (0.0-0.3); EOSINOPHILS % (AUTO) 1 % (0-10); HEMATOCRIT 52 % (40-54); HEMOGLOBIN 17.1 G/DL (13.3-17.7); LYMPHOCYTES % (AUTO) 18 % (12-44); MEAN CORPUSCULAR HEMOGLOBIN 31 PG (25-34); MEAN CORPUSCULAR HGB CONC 33 G/DL (32-36); MEAN CORPUSCULAR VOLUME 92 FL (80-99); MEAN PLATELET VOLUME 9.6 FL (7.4-10.4); MONOCYTES # (AUTO) 0.9 X 10^3 (0.0-1.0); MONOCYTES % (AUTO) 16 % (0-12); NEUTROPHILS # (AUTO) 3.6 X 10^3 (1.8-7.8); NEUTROPHILS % (AUTO) 65 % (42-75); PLATELET COUNT 218 10^3/uL (130-400); WHITE BLOOD COUNT 5.5 10^3/uL (4.3-11.0)
[2018-12-27 11:22] LABS: ALANINE AMINOTRANSFERASE 19 U/L (0-55); ALBUMIN 4.3 GM/DL (3.2-4.5); ALKALINE PHOSPHATASE 81 U/L (40-136); BILIRUBIN,TOTAL 0.7 MG/DL (0.1-1.0); BUN/CREATININE RATIO 15; CALCIUM 9.7 MG/DL (8.5-10.1); CARBON DIOXIDE 18 MMOL/L (21-32); CHLORIDE 109 MMOL/L (98-107); CREATININE SERUM 1.12 MG/DL (0.60-1.30); GFR ESTIMATED > 60; GLUCOSE 111 MG/DL (70-105); POTASSIUM 4.4 MMOL/L (3.6-5.0); SODIUM 136 MMOL/L (135-145); TOTAL PROTEIN 7.4 GM/DL (6.4-8.2)
[2019-03-03 09:47] LABS: BASOPHILS % (AUTO) 1 % (0-10); EOSINOPHILS # (AUTO) 0.1 10^3/uL (0.0-0.3); EOSINOPHILS % (AUTO) 1 % (0-10); HEMATOCRIT 52 % (40-54); HEMOGLOBIN 17.3 G/DL (13.3-17.7); LYMPHOCYTES # (AUTO) 1.3 X 10^3 (1.0-4.0); LYMPHOCYTES % (AUTO) 20 % (12-44); MEAN CORPUSCULAR HEMOGLOBIN 30 PG (25-34); MEAN CORPUSCULAR HGB CONC 33 G/DL (32-36); MEAN CORPUSCULAR VOLUME 92 FL (80-99); MEAN PLATELET VOLUME 10.2 FL (7.4-10.4); MONOCYTES % (AUTO) 15 % (0-12); NEUTROPHILS # (AUTO) 4.2 X 10^3 (1.8-7.8); NEUTROPHILS % (AUTO) 64 % (42-75); PLATELET COUNT 195 10^3/uL (130-400); WHITE BLOOD COUNT 6.7 10^3/uL (4.3-11.0)
[2019-03-03 10:11] LABS: ALBUMIN 4.1 GM/DL (3.2-4.5); BILIRUBIN,TOTAL 0.8 MG/DL (0.1-1.0); CALCIUM 9.6 MG/DL (8.5-10.1); CREATININE SERUM 1.24 MG/DL (0.60-1.30); POTASSIUM 4.7 MMOL/L (3.6-5.0); TOTAL PROTEIN 7.3 GM/DL (6.4-8.2)
[~2019-03-08 10:53] MED LIST changes: +DILT-28 PO; -DILT180C90 PO; -MELA3TAB PO; +MELA3TAB65 PO; +OMEP40CA27 PO; -TAMS0.4C98 PO
== END 2019-03-27 | disposition home or self-care (01) ==
LOC: ONC 10:53
PROVIDERS: ATTEND Internal Medicine Hematology & Oncology
DX: I48.91 Unspecified atrial fibrillation (principal); J44.9 Chronic obstructive pulmonary disease, unspecified; I47.2 Ventricular tachycardia; I10 Essential (primary) hypertension; E11.9 Type 2 diabetes mellitus without complications; M19.90 Unspecified osteoarthritis, unspecified site; G47.33 Obstructive sleep apnea (adult) (pediatric); M81.0 Age-related osteoporosis without current pathological fracture; M48.00 Spinal stenosis, site unspecified; Z79.899 Other long term (current) drug therapy; Z87.891 Personal history of nicotine dependence; Z79.01 Long term (current) use of anticoagulants; Z98.890 Other specified postprocedural states
CPT/HCPCS: 36415; 80053; 82728; 83540; 85025; 99213

== ENCOUNTER 2019-04-07 08:00 | Outpatient (RCR) | payer MEDICARE ==
[2019-03-03 08:00] VITALS: BP 120/70
[2019-03-03 09:07] VITALS: BP 100/40
[2019-03-08 08:00] VITALS: BP 114/80
[2019-03-08 09:30] VITALS: BP 130/60
[2019-03-10 08:04] VITALS: BP 140/60
[2019-03-10 09:02] VITALS: BP 121/80
[2019-03-29 08:05] VITALS: BP 130/60
[2019-03-29 09:10] VITALS: BP 130/80
[2019-03-31 08:05] VITALS: BP 150/82
[2019-03-31 08:57] VITALS: BP 118/80
[2019-04-05 08:03] VITALS: BP 150/50
[2019-04-05 09:18] VITALS: BP 160/60
[2019-04-07 08:00] VITALS: BP 122/62
[~2019-04-07 08:00] MED LIST changes: +MELA3TAB39 PO; -MELA3TAB65 PO; +MONT10TA26 PO
[2019-04-07 09:10] VITALS: BP 126/70
[2019-04-14 08:00] VITALS: BP 130/50
[2019-04-14 08:53] VITALS: BP 100/63
[2019-04-18] MEDS ORDERED: FLUT1DIS26 IH (08:01)
== END 2019-06-06 | disposition home or self-care (01) ==
LOC: PULM 08:00
PROVIDERS: ATTEND Nurse Practitioner Family
DX: J84.10 Pulmonary fibrosis, unspecified (principal); R91.8 Other nonspecific abnormal finding of lung field; R09.02 Hypoxemia; R94.2 Abnormal results of pulmonary function studies

== ENCOUNTER → 2019-04-21 | Outpatient (CLI) | payer MEDICARE ==
[~2019-04-21] MED LIST changes: +FLUT1DIS26 IH; -MELA3TAB39 PO; +MELA3TAB65 PO
[2019-04-21 15:27] LABS: BASOPHILS % (AUTO) 0 % (0-10); EOSINOPHILS # (AUTO) 0.1 10^3/uL (0.0-0.3); EOSINOPHILS % (AUTO) 1 % (0-10); HEMATOCRIT 38 % (40-54); HEMOGLOBIN 12.5 G/DL (13.3-17.7); LYMPHOCYTES # (AUTO) 1.5 X 10^3 (1.0-4.0); LYMPHOCYTES % (AUTO) 21 % (12-44); MEAN CORPUSCULAR HEMOGLOBIN 32 PG (25-34); MEAN CORPUSCULAR HGB CONC 33 G/DL (32-36); MEAN CORPUSCULAR VOLUME 96 FL (80-99); MEAN PLATELET VOLUME 9.4 FL (7.4-10.4); MONOCYTES # (AUTO) 0.8 X 10^3 (0.0-1.0); MONOCYTES % (AUTO) 12 % (0-12); NEUTROPHILS # (AUTO) 4.6 X 10^3 (1.8-7.8); NEUTROPHILS % (AUTO) 66 % (42-75); PLATELET COUNT 210 10^3/uL (130-400); RED CELL DISTRIBUTION WIDTH 16.9 % (10.0-14.5); WHITE BLOOD COUNT 7.1 10^3/uL (4.3-11.0)
[2019-04-21 15:43] LABS: BUN/CREATININE RATIO 16; CALCIUM 8.9 MG/DL (8.5-10.1); CARBON DIOXIDE 24 MMOL/L (21-32); CHLORIDE 109 MMOL/L (98-107); CREATININE SERUM 0.97 MG/DL (0.60-1.30); GFR ESTIMATED > 60; GLUCOSE 90 MG/DL (70-105); POTASSIUM 4.1 MMOL/L (3.6-5.0); SODIUM 140 MMOL/L (135-145)
--- NOTE | 2019-04-21 16:00 | Diagnostic Imaging Report ---
INDICATION: Hypoxia and dyspnea. PA and lateral chest obtained at 03:36 p.m. and compared to 04/19/2019. Patient has been extubated since the prior study. There is cardiomegaly with postop change with valve replacements. Chronic interstitial infiltrates are present which are similar to the previous study. There is some patchy alveolar infiltrate in both lung bases which may represent superimposed pneumonia. There is no pneumothorax or pleural fluid. IMPRESSION: Status post extubation compared to the prior study. Chronic interstitial infiltrates are present with some patchy alveolar infiltrates which could represent a superimposed pneumonia. Correlate with clinical findings. Report was faxed to the provided phone number at 3:58 p.m., by marlena (for SHASTA). Dictated by: Dictated on workstation # [id number]
== END ==
LOC: RAD 15:05
PROVIDERS: ATTEND Nurse Practitioner Family
DX: J44.9 Chronic obstructive pulmonary disease, unspecified (principal); G47.33 Obstructive sleep apnea (adult) (pediatric); J40 Bronchitis, not specified as acute or chronic; R91.8 Other nonspecific abnormal finding of lung field; R94.2 Abnormal results of pulmonary function studies; Z87.891 Personal history of nicotine dependence
CPT/HCPCS: 36415; 71046; 80048; 83880; 85025

== ENCOUNTER → 2019-04-25 | Outpatient (CLI) | payer MEDICARE ==
[2019-04-25 10:35] LABS: BUN/CREATININE RATIO 23; CALCIUM 9.6 MG/DL (8.5-10.1); CARBON DIOXIDE 21 MMOL/L (21-32); CHLORIDE 107 MMOL/L (98-107); CREATININE SERUM 1.08 MG/DL (0.60-1.30); GFR ESTIMATED > 60; GLUCOSE 120 MG/DL (70-105); POTASSIUM 4.3 MMOL/L (3.6-5.0); SODIUM 138 MMOL/L (135-145)
== END ==
LOC: LABNPT 10:08
PROVIDERS: ATTEND Internal Medicine Critical Care Medicine
DX: R06.00 Dyspnea, unspecified (principal); J84.17 Other interstitial pulmonary diseases with fibrosis in diseases classified elsewhere
CPT/HCPCS: 80048; 83880

== ENCOUNTER → 2019-07-05 | Outpatient (CLI) | payer MEDICARE ==
[~2019-07-05] MED LIST changes: +MELA3TAB39 PO; -MELA3TAB65 PO
[2019-07-05 10:43] LABS: POTASSIUM 4.2 MMOL/L (3.6-5.0)
[2019-07-05 10:44] LABS: CALCIUM 9.5 MG/DL (8.5-10.1)
[2019-07-05 10:48] LABS: CREATININE SERUM 1.25 MG/DL (0.60-1.30)
== END ==
LOC: CARD 10:18
PROVIDERS: ATTEND Nurse Practitioner Family
DX: I08.1 Rheumatic disorders of both mitral and tricuspid valves (principal); I47.1 Supraventricular tachycardia; J84.17 Other interstitial pulmonary diseases with fibrosis in diseases classified elsewhere; M79.7 Fibromyalgia; G47.33 Obstructive sleep apnea (adult) (pediatric); M35.00 Sjogren syndrome, unspecified; J40 Bronchitis, not specified as acute or chronic; Z87.891 Personal history of nicotine dependence
CPT/HCPCS: 36415; 80048; 93306

== ENCOUNTER → 2019-07-07 | Outpatient (CLI) | payer MEDICARE | LOC: LABNPT 14:32 | PROVIDERS: ATTEND Urology | DX: N40.1 Benign prostatic hyperplasia with lower urinary tract symptoms (principal); R39.9 Unspecified symptoms and signs involving the genitourinary system | CPT/HCPCS: 84153; 84402; 84403 ==

== ENCOUNTER 2019-07-12 10:53 | Outpatient (RCR) | payer MEDICARE ==
[2019-07-07 11:13] LABS: BASOPHILS % (AUTO) 1 % (0-10); EOSINOPHILS # (AUTO) 0.1 10^3/uL (0.0-0.3); EOSINOPHILS % (AUTO) 1 % (0-10); HEMATOCRIT 46 % (40-54); HEMOGLOBIN 15.3 G/DL (13.3-17.7); LYMPHOCYTES % (AUTO) 15 % (12-44); MEAN CORPUSCULAR HEMOGLOBIN 32 PG (25-34); MEAN CORPUSCULAR HGB CONC 33 G/DL (32-36); MEAN CORPUSCULAR VOLUME 98 FL (80-99); MEAN PLATELET VOLUME 9.4 FL (7.4-10.4); MONOCYTES # (AUTO) 0.7 X 10^3 (0.0-1.0); MONOCYTES % (AUTO) 11 % (0-12); NEUTROPHILS # (AUTO) 4.8 X 10^3 (1.8-7.8); NEUTROPHILS % (AUTO) 73 % (42-75); PLATELET COUNT 260 10^3/uL (130-400); RED CELL DISTRIBUTION WIDTH 15.1 % (10.0-14.5); WHITE BLOOD COUNT 6.6 10^3/uL (4.3-11.0)
[2019-07-07 11:33] LABS: BILIRUBIN,TOTAL 1.2 MG/DL (0.1-1.0); CALCIUM 9.7 MG/DL (8.5-10.1); CREATININE SERUM 1.23 MG/DL (0.60-1.30); POTASSIUM 4.3 MMOL/L (3.6-5.0); TOTAL PROTEIN 7.1 GM/DL (6.4-8.2)
== END 2019-10-05 | disposition home or self-care (01) ==
LOC: ONC 10:53
PROVIDERS: ATTEND Internal Medicine Hematology & Oncology
DX: I48.91 Unspecified atrial fibrillation (principal); J44.9 Chronic obstructive pulmonary disease, unspecified; I47.2 Ventricular tachycardia; I10 Essential (primary) hypertension; E11.9 Type 2 diabetes mellitus without complications; M19.90 Unspecified osteoarthritis, unspecified site; G47.33 Obstructive sleep apnea (adult) (pediatric); M81.0 Age-related osteoporosis without current pathological fracture; M48.00 Spinal stenosis, site unspecified; Z79.899 Other long term (current) drug therapy; Z87.891 Personal history of nicotine dependence; Z79.01 Long term (current) use of anticoagulants; Z98.890 Other specified postprocedural states
CPT/HCPCS: 80053; 82728; 85025; 99213

== ENCOUNTER → 2019-09-02 | Day surgery (SDC) | payer MEDICARE ==
[~2019-09-02] VITALS: Ht 180 cm; Wt 105.0 kg
[~2019-09-02] MED LIST changes: +LIDOCAINE 1% INJ 20 ML 20 ML VIAL INJ ONE; +LIDOCAINE 1% INJ 20 ML 20 ML VIAL ONE
[2019-09-02 08:38] VITALS: BP 124/93
--- NOTE | 2019-09-02 11:09 | Implantation of Loop Monitor ---
Implant of Loop Monitior PROCEDURE PHYSICIAN: Marco Pratt MD EXPLANTATION AND REIMPLANTATION OF LOOP MONITOR REPORT DATE OF PROCEDURE: 09/02/19 PERFORMING PHYSICIAN: Dr. Gómez Pratt. INDICATION: Long-term surveillance of atrial fibrillation PREOP DIAGNOSIS: Long-term surveillance of atrial fibrillation POSTOP DIAGNOSIS: Persistent Atrial fibrillation, s/p implantation of loop recorder. PROCEDURE DETAILS: The patient is a 79 male with history of paroxysmal atrial fibrillation requiring long-term surveillance. Therefore implantable loop recorder was discussed and agreed with the patient. Informed consent was taken. All risks and complications were discussed at length. The patient was draped and prepped in the usual sterile fashion. Local anesthesia was lidocaine, which was given in the substernal area close to the 4th intercostal space. Previous loop monitor was removed and a new Loop monitor was implanted according to the protocol. Steri-Strips were placed at the end of the procedure. There were no complications and the patient tolerated the procedure well. The device was inter rogated with a voltage of. ANESTHESIA: Local anesthesia with lidocaine. COMPLICATIONS: None CONTRAST/FLUOROSCOPY: None CONCLUSION: 1. Successful explantation and reimplantation of loop monitor for atrial fibrillation. 2. No complication and the patient tolerated the procedure well. Marco Pratt MD, [facility] Cardiac Electrophysiology Omar PRATT MD Sep 02, 2019 11:09
== END ==
LOC: CATH 08:23
PROVIDERS: ATTEND Internal Medicine Interventional Cardiology
DX: I48.0 Paroxysmal atrial fibrillation (principal); I10 Essential (primary) hypertension; E11.9 Type 2 diabetes mellitus without complications; M19.90 Unspecified osteoarthritis, unspecified site; M81.0 Age-related osteoporosis without current pathological fracture; G47.33 Obstructive sleep apnea (adult) (pediatric); M79.7 Fibromyalgia; M35.00 Sjogren syndrome, unspecified; E78.5 Hyperlipidemia, unspecified; I65.23 Occlusion and stenosis of bilateral carotid arteries; I47.1 Supraventricular tachycardia; Z87.891 Personal history of nicotine dependence; Z91.013 Allergy to seafood; Z85.828 Personal history of other malignant neoplasm of skin; Z79.01 Long term (current) use of anticoagulants; Z79.899 Other long term (current) drug therapy; Z88.5 Allergy status to narcotic agent
CPT/HCPCS: 33285; C1764

== ENCOUNTER → 2019-10-03 | Outpatient (CLI) | payer MEDICARE ==
[~2019-10-03] MED LIST changes: -LIDOCAINE 1% INJ 20 ML 20 ML VIAL INJ ONE; -LIDOCAINE 1% INJ 20 ML 20 ML VIAL ONE
== END ==
LOC: CARD 10:30
PROVIDERS: ATTEND Internal Medicine Cardiovascular Disease
DX: I08.1 Rheumatic disorders of both mitral and tricuspid valves (principal); I47.2 Ventricular tachycardia; I48.0 Paroxysmal atrial fibrillation; M35.00 Sjogren syndrome, unspecified; E78.5 Hyperlipidemia, unspecified; E11.9 Type 2 diabetes mellitus without complications
CPT/HCPCS: 93306

== ENCOUNTER → 2019-10-31 | Outpatient (CLI) | payer MEDICARE ==
--- NOTE | 2019-10-31 15:11 | Diagnostic Imaging Report ---
PROCEDURE: US right lower extremity venous. TECHNIQUE: Multiple real-time grayscale images were obtained over the right lower extremity in various projections. Additional spectral analysis and color Doppler duplex images were also obtained. INDICATION: Right leg pain. FINDINGS: There is no evidence of right lower extremity DVT. Right lower extremity deep venous system shows normal compressibility with normal response to augmentation and Valsalva. No fluid collection or mass is detected. IMPRESSION: No evidence of right lower extremity DVT. Dictated by: Dictated on workstation # [id number]
== END ==
LOC: RAD 13:59
PROVIDERS: ATTEND Nurse Practitioner Family
DX: R60.0 Localized edema (principal)

== ENCOUNTER 2019-12-23 13:34 | Inpatient (IN) | payer MEDICARE ==
[~2019-12-23] VITALS: Ht 177 cm; Wt 98.7 kg
[2019-12-23] MEDS ORDERED: LACTATED RINGERS 1,000 ML IV ONE ×3 (14:02→17:44)
[2019-12-23 14:03] VITALS: BP 121/89
[2019-12-23] MEDS ORDERED: NS (IVPB) 100 ML ONE (14:08)
[2019-12-23] MEDS ORDERED: ASPIRIN 81 MG CHEW (CHILDREN'S ASA) ONE (14:08)
[2019-12-23] MEDS ORDERED: PIPERACILLIN/TAZO 4.5 GM VIAL (ZOSYN) IV ONE (14:08)
[2019-12-23 14:11] LABS: ABG BASE EXCESS -5.9 MMOL/L (-2.5-2.5); ABG OXYGEN SATURATION 99 % (94-100); ABG PCO2 28 MMHG (35-45); ABG PH 7.42 (7.37-7.43); ABG PO2 135 MMHG (79-93); ABG TCO2 18.9 MMOL/L (21.0-31.0); ALLENS TEST YES-POS
[2019-12-23 14:12] LABS: INSPIRED O2 15 L; PATIENT TEMP 95.8; VENTILATOR NO
[2019-12-23] MEDS ORDERED: VANCOMYCIN INJECTION 1,000 MG in NS (IVPB) 250 ML IV ONE (14:15)
[2019-12-23] MEDS ORDERED: PIPERACILLIN SODIUM/TAZOBACTAM 4.5 GM in NS (IVPB) 100 ML IV ONE (14:15)
[2019-12-23] MEDS ORDERED: ASPIRIN 81 MG CHEW (CHILDREN'S ASA) PO ONE (14:15)
[2019-12-23 14:16] LABS: BASOPHILS # (AUTO) 0.1 10^3/uL (0.0-0.1); BASOPHILS % (AUTO) 1 % (0-10); EOSINOPHILS # (AUTO) 0.1 10^3/uL (0.0-0.3); EOSINOPHILS % (AUTO) 1 % (0-10); HEMATOCRIT 48 % (40-54); HEMOGLOBIN 15.3 g/dL (13.3-17.7); LYMPHOCYTES # (AUTO) 1.1 10^3/uL (1.0-4.0); LYMPHOCYTES % (AUTO) 18 % (12-44); MEAN CORPUSCULAR HEMOGLOBIN 32 pg (25-34); MEAN CORPUSCULAR HGB CONC 32 g/dL (32-36); MEAN CORPUSCULAR VOLUME 99 fL (80-99); MEAN PLATELET VOLUME 9.3 fL (9.0-12.2); MONOCYTES # (AUTO) 0.6 10^3/uL (0.0-1.0); MONOCYTES % (AUTO) 10 % (0-12); NEUTROPHILS # (AUTO) 4.4 10^3/uL (1.8-7.8); NEUTROPHILS % (AUTO) 70 % (42-75); PLATELET COUNT 246 10^3/uL (130-400); WHITE BLOOD COUNT 6.3 10^3/uL (4.3-11.0)
--- NOTE | 2019-12-23 14:16 | ED Respiratory ---
General Stated Complaint: COUGH SOB Source: patient Exam Limitations: no limitations History of Present Illness Date Seen by Provider: Dec 23, 2019 Time Seen by Provider: 13:47 Initial Comments Patient presents ER by private conveyance with chief complaint to 3 days progressively worsening shortness of breath. Occasional cough occasionally productive. No fevers or chills. He's had some tightness in his chest. He relies on oxygen at baseline 5 L by nasal cannula and CPAP sleep at night. He is known to Dr. Pruitt. They get worse this afternoon and he decided to come to the ER to be checked out. Nursing reports his oxygen sats were 62% on baseline 5 L by nasal cannula. He denies being wheezy you're deriving any extra benefit from his inhaled albuterol. He denies any sick contacts. No history of coronary disease. He does have a history of fibrillation on Eliquis 5 mg twice a day known to Dr. Nur and Dr. Pratt. He did have a ablation in the past year. Allergies and Home Medications Allergies Coded Allergies: shellfish derived (Unverified Allergy, Severe, ANAPHYLAXIS, 02/18/19) meperidine (Unverified Allergy, Intermediate, LOW BP, N/V, 02/18/19) Home Medications Albuterol Sulfate 1 Puff Puff, 2 PUFF INH Q4H PRN for SHORTNESS OF BREATH, (Reported) 1 PUFF = 90 MCG Apixaban 5 Mg Tablet, 5 MG PO BID, (Reported) Diltiazem HCl 180 Mg Cap.er.24h, 180 MG PO DAILY, (Reported) Fluticasone/Salmeterol 1 Each Blst.w.dev, 1 EACH IH Q12H, (Reported) Gemfibrozil 600 Mg Tablet, 600 MG PO BID, (Reported) Lisinopril 20 Mg Tablet, 20 MG PO BID, (Reported) Melatonin 3 Mg Tablet, 6-9 MG PO HS PRN for SLEEP, (Reported) TAKES 2 (3MG) TABLETS Montelukast Sodium 10 Mg Tablet, 10 MG PO DAILY, (Reported) Omeprazole 40 Mg Capsule.dr, 40 MG PO HS, (Reported) Pravastatin Sodium 20 Mg Tablet, 20 MG PO DAILY, (Reported) Sildenafil Citrate 20 Mg Tablet, 50 MG PO DAILY PRN for ED, (Reported) TAKES 2 & 1/2 (20MG) TABLETS Sotalol HCl 80 Mg Tablet, 80 MG PO BID, (Reported) Tamsulosin HCl 0.4 Mg Cap, 0.4 MG PO DAILY, (Reported) Testosterone Cypionate 200 Mg/1 Ml Vial, 200 MG INJ EVERY 2 WEEKS, (Reported) Tiotropium [place] 4 Gm Mist.inhal, 2 PUFF IH DAILY, (Reported) Tramadol HCl 50 Mg Tablet, 50-100 MG PO QID PRN for PAIN-MODERATE, (Reported) Patient Home Medication List Home Medication List Reviewed: Yes Review of Systems Review of Systems Constitutional: No chills, No diaphoresis EENTM: No ear discharge, No ear pain Respiratory: No cough, No phlegm, No short of breath Cardiovascular: No chest pain, No edema, No Hx of Intervention Genitourinary: No discharge, No dysuria, No nocturia Musculoskeletal: No back pain, No joint pain Skin: No pruritus, No rash Psychiatric/Neurological: Denies Anxiety, Denies Depressed All Other Systems Reviewed Negative Unless Noted: Yes Past Wfbtcwg-Otsvjm-Dszeat Hx Patient Social History Alcohol Use: Denies Use Recreational Drug Use: No Smoking Status: Former Smoker Type Used: Cigarettes Former Smoker, Quit: Feb 19, 2004 2nd Hand Smoke Exposure: Yes Recent Foreign Travel: No Contact w/Someone Who Travel: No Recent Hopitalizations: No Immunizations Up To Date Tetanus Booster (TDap): Unknown Date of Pneumonia Vaccine: Apr 17, 2016 Date of Influenza Vaccine: Nov 09, 2018 Seasonal Allergies Seasonal Allergies: No Past Medical History Surgeries: Yes ( CARDIAC CATHS--NO STENTS; COPY OF LIST OF MULTIPLE SURGERIES IN CHART) Joint Replacement Respiratory: Yes (O2 DEPENDENT) Sleep Apnea, Emphysema Currently Using CPAP: Yes Currently Using BIPAP: No Cardiac: Yes (MITRAL VALVE REPAIR) Atrial Fibrillation, Hypertension, Valvular Heart Disease Neurological: No Headaches /Migraines Reproductive Disorders: No Sexually Transmitted Disease: No HIV/AIDS: No Genitourinary: No Kidney Stones Gastrointestinal: Yes Gastroesophageal Reflux, Hiatal Hernia Musculoskeletal: Yes (LEFT KNEE DJD, SPINAL STENOSIS, RESTLESS LEG SYNDROME) Arthritis, Fibromyalgia, Chronic Back Pain Endocrine: Yes (DIET CONTROLLED DIABETES) Diabetes, Non-Insulin dep HEENT: Yes (GLASSES, DENTURES) Cataract Loss of Vision: Denies Hearing Impairment: Hard of Hearing, Bilateral Hearing Aide Cancer: Yes Skin Did You Recieve Any Treatments: Yes What Type of Treatment Did You: Surgical Intervention Psychosocial: No Integumentary: No Blood Disorders: No Adverse Reaction/Blood Tranf: No (N/A) Family Medical History Cancer Physical Exam Vital Signs - First Documented 12/23/19 12/23/19 13:40 13:42 Temp 35.4 Pulse 106 Resp 26 B/P (MAP) 121/89 (100) Pulse Ox 86 O2 Delivery Room Air O2 Flow Rate 15.00 Capillary Refill : Height: 5'11.00" Weight: 251lbs. 0.8oz. [id number]; 32.40 BMI Method:Stated General Appearance: moderate distress, obese Eyes: Bilateral Eye Normal Inspection, Bilateral Eye PERRL, Bilateral Eye EOMI HEENT: PERRL/EOMI, normal ENT inspection; No pharynx normal (oral pharynx mucosa is dry) Neck: non-tender, full range of motion, supple, normal inspection Respiratory: lungs clear, respiratory distress (moderate with oxygen saturation 62% on 5 L by nasal cannula and 92% on flush oxygen mask), decreased breath sounds Cardiovascular: normal peripheral pulses, regular rate, rhythm Gastrointestinal: normal bowel sounds, non tender Extremities: non-tender, normal inspection, normal capillary refill Neurologic/Psychiatric: alert, normal mood/affect, oriented x 3 Skin: normal color, warm/dry Focused Exam Sepsis Stage: Sepsis Possible Source: Pulmonary Lactate Level 12/23/19 14:05: Lactic Acid Level 1.32 Time of Focused Exam: 15:39 Respiratory: Lungs Clear, Normal Breath Sounds, No Accessory Muscle Use, No Respiratory Distress Cardiovascular: Regular Rate, Rhythm, Normal Peripheral Pulses Capillary Refill: Less Than 3 Seconds Peripheral Pulses: 2+ Radial Pulses (R), 2+ Radial Pulses (L) Skin: normal color, warm/dry Lactic Acid Level Laboratory Tests Test 12/23/19 14:05 Lactic Acid Level 1.32 MMOL/L (0.50-2.00) Within 3hrs of presentation: Admin fluids, Admin 30ml/kg IBW due to BMI>30 (adj ibw 193#), Admin ABX, Blood cultures prior to ABX's, Focus exam, Lactate level Procedures/Interventions Date of ETT Placement: Apr 18, 2019 Time of ETT Placement: 151 Progress/Results/Core Measures Suspected Sepsis SIRS Temperature: Pulse: 99 Respiratory Rate: 22 Laboratory Tests 12/23/19 14:05: White Blood Count 6.3 Blood Pressure 121 /89 Mean: 12/23/19 14:05: Lactic Acid Level 1.32 Laboratory Tests 12/23/19 14:05: Creatinine 1.21, INR Comment 1.5H, Platelet Count 246, Total Bilirubin 2.5H Results/Orders Lab Results Laboratory Tests Test 12/23/19 13:56 12/23/19 14:05 12/23/19 14:06 Range/Units Coronavirus 2019 (CAROLYN) Negative Negative White Blood Count 6.3 4.3-11.0 10^3/uL Red Blood Count 4.85 4.30-5.52 10^6/uL Hemoglobin 15.3 13.3-17.7 g/dL Hematocrit 48 40-54 % Mean Corpuscular Volume 99 80-99 fL Mean Corpuscular Hemoglobin 32 25-34 pg Mean Corpuscular Hemoglobin Concent 32 32-36 g/dL Red Cell Distribution Width 16.0 H 10.0-14.5 % Platelet Count 246 130-400 10^3/uL Mean Platelet Volume 9.3 9.0-12.2 fL Immature Granulocyte % (Auto) 1 % Neutrophils (%) (Auto) 70 42-75 % Lymphocytes (%) (Auto) 18 12-44 % Monocytes (%) (Auto) 10 0-12 % Eosinophils (%) (Auto) 1 0-10 % Basophils (%) (Auto) 1 0-10 % Neutrophils # (Auto) 4.4 1.8-7.8 10^3/uL Lymphocytes # (Auto) 1.1 1.0-4.0 10^3/uL Monocytes # (Auto) 0.6 0.0-1.0 10^3/uL Eosinophils # (Auto) 0.1 0.0-0.3 10^3/uL Basophils # (Auto) 0.1 0.0-0.1 10^3/uL Immature Granulocyte # (Auto) 0.0 0.0-0.1 10^3/uL Prothrombin Time 18.6 H 12.2-14.7 SEC INR Comment 1.5 H 0.8-1.4 Activated Partial Thromboplast Time 35 24-35 SEC Sodium Level 141 135-145 MMOL/L Potassium Level 4.1 3.6-5.0 MMOL/L Chloride Level 108 H 98-107 MMOL/L Carbon Dioxide Level 21 21-32 MMOL/L Anion Gap 12 5-14 MMOL/L Blood Urea Nitrogen 16 7-18 MG/DL Creatinine 1.21 0.60-1.30 MG/DL Estimat Glomerular Filtration Rate 58 BUN/Creatinine Ratio 13 Glucose Level 101 70-105 MG/DL Lactic Acid Level 1.32 0.50-2.00 MMOL/L Calcium Level 9.7 8.5-10.1 MG/DL Corrected Calcium 9.5 8.5-10.1 MG/DL Total Bilirubin 2.5 H 0.1-1.0 MG/DL Aspartate Amino Transf (AST/SGOT) 23 5-34 U/L Alanine Aminotransferase (ALT/SGPT) 15 0-55 U/L Alkaline Phosphatase 100 40-136 U/L Troponin I < 0.028 <0.028 NG/ML B-Type Natriuretic Peptide 523.7 H <100.0 PG/ML Total Protein 7.6 6.4-8.2 GM/DL Albumin 4.3 3.2-4.5 GM/DL Blood Gas Puncture Site RT RAD Blood Gas Patient Temperature 95.8 Arterial Blood pH 7.42 7.37-7.43 Arterial Blood Partial Pressure CO2 28 L 35-45 MMHG Arterial Blood Partial Pressure O2 135 H 79-93 MMHG Arterial Blood HCO3 18 L 23-27 MMOL/L Arterial Blood Total CO2 18.9 L 21.0-31.0 MMOL/L Arterial Blood Oxygen Saturation 99 94-100 % Arterial Blood Base Excess -5.9 L -2.5-2.5 MMOL/L Alexy Test YES-POS Blood Gas Ventilator Setting NO Blood Gas Inspired Oxygen 15 L Micro Results Microbiology 12/23/19 Influenza Types A,B Antigen (NO) - Final, Complete My Orders Orders - ROB WEST Cbc With Automated Diff (12/23/19 14:02) Comprehensive Metabolic Panel (12/23/19 14:02) Blood Culture (12/23/19 14:02) Sputum Culture (12/23/19 14:02) Urinalysis (12/23/19 14:02) Urine Culture (12/23/19 14:02) Protime With Inr (12/23/19 14:02) Partial Thromboplastin Time (12/23/19 14:02) Chest 1 View, Ap/Pa Only (12/23/19 14:02) Ed Iv/Invasive Line Start (12/23/19 14:02) Ed Iv/Invasive Line Start (12/23/19 14:02) Ekg Tracing (12/23/19 14:02) Troponin I (12/23/19 14:02) Vital Signs Adult Sepsis Patie Q15M (12/23/19 14:02) O2 (12/23/19 14:02) Remove Rings In Anticipation O (12/23/19 14:02) Lactic Acid Analyzer (12/23/19 14:02) Influenza A And B Antigens (12/23/19 14:02) Lactated Ringers (Lr 1000 Ml Iv Solution (12/23/19 14:02) BNP (12/23/19 14:02) Covid 19 Inhouse Test (12/23/19 14:02) Arterial Blood Gas (12/23/19 14:06) Aspirin Chewable Tablet (Baby Aspirin Ch (12/23/19 14:15) Piperacillin Sodium/Tazobactam (Zosyn Vi (12/23/19 14:15) Ed Iv/Invasive Line Start (12/23/19 14:07) Lactated Ringers (Lr 1000 Ml Iv Solution (12/23/19 14:07) Aspirin Chewable Tablet (Baby Aspirin Ch (12/23/19 14:08) Vancomycin Injection (Vancomycin Injecti (12/23/19 14:15) Vancomycin Injection (Vancomycin Injecti (12/23/19 15:15) Piperacillin Sodium/Tazobactam (Zosyn Vi (12/23/19 14:08) Ns (Ivpb) (Sodium Chloride 0.9% Ivpb Bag (12/23/19 14:08) Vancomycin Injection (Vancomycin Injecti (12/23/19 14:45) Medications Given in ED Current Medications Medications Dose Ordered Sig/Miri Route Start Time Stop Time Status Last Admin Dose Admin Aspirin 324 mg ONCE ONCE PO 12/23/19 14:15 12/23/19 14:16 DC 12/23/19 14:18 324 MG Lactated Ringer's 1,000 ml @ 0 mls/hr Q0M ONCE IV 12/23/19 14:02 12/23/19 14:07 DC 12/23/19 14:20 1,000 MLS/HR Piperacillin Sod/ Tazobactam Sod 4.5 gm/Sodium Chloride 100 ml @ 200 mls/hr ONCE ONCE IV 12/23/19 14:15 12/23/19 14:44 DC 12/23/19 14:19 200 MLS/HR Vital Signs/I&O 12/23/19 12/23/19 12/23/19 13:40 13:42 14:03 Temp 35.4 Pulse 106 99 Resp 26 22 B/P (MAP) 121/89 (100) Pulse Ox 86 92 98 O2 Delivery Room Air OxyMask O2 Flow Rate 15.00 40.00 Capillary Refill : Progress Note : Time: 14:22 Progress Note After putting the patient on flush bring his oxygen sats up to 90% his chest tightness went away and he felt much better. He's not having any wheezing so I don't think a unable be beneficial. Put him on CPAP 7 cm water pressure and a titrating the FiO2. Get an ABG. Chest x-ray. Septic workup based on tachycardia tachycardia. We'll hold off antibiotics until we see the results of the influenza and COVID-19 swab unless he has a significantly elevated white count or infiltrate on chest x-ray. Aspirin and EKG. ECG Initial ECG Impression Date: Dec 23, 2019 Initial ECG Impression Time: 14:09 Initial ECG Rate: 106 Initial ECG Rhythm: S.Tach Initial ECG Intervals: QT (528) Initial ECG Impression: Normal Comment Atrial fibrillation with tachycardia and LVH. No clinically relevant ST changes. Diagnostic Imaging Diagonstic Imaging: Xray Plain Films/CT/US/NM/MRI: chest Comments NAME: JESSICA NOBLE Cinthya [facility] REC#: [id number] PT STATUS: REG ER : 1940 PHYSICIAN: ROB WEST MD ADMIT DATE: 12/23/19/ER Draft Date of Exam:12/23/19 CHEST 1 VIEW, AP/PA ONLY INDICATION: Sepsis COMPARISON: 04/21/2019 TECHNIQUE: Single radiograph of the chest dated 12/23/2019. FINDINGS: Postsurgical changes of the median sternotomy. Prosthetic cardiac valve again noted. Loop recorder seen overlying left chest. The cardiac silhouette is significantly enlarged. No definite pulmonary vascular congestion, though pulmonary vasculature is partially obscured. Low lung volumes. Background chronic interstitial lung changes are again identified. However, significantly increasing opacities are noted involving the bilateral lung bases and mid lungs. No significant pleural effusion. No pneumothorax. No acute osseous abnormality. IMPRESSION: Extensive new bilateral pulmonary infiltrates superimposed upon chronic interstitial lung changes. Findings concerning for a superimposed infectious etiology. Interstitial edema felt less likely given lack of significant pulmonary vascular congestion or pleural effusion. Persistent cardiomegaly with postsurgical changes as above. Dictated on workstation # [id number] Dict: 12/23/19 1513 Trans: 12/23/19 1521 CV [id number] Interpreted by: JUAN CARLOS JUNE MD Electronically signed by: Reviewed: Reviewed by Me Departure Communication (Admissions) Time/Spoke to Admitting Phy: 15:15 Discussed the case with Dr. Mauricio and she agrees take patient to step down on CPAP with broad-spectrum antibiotics. Impression Primary Impression: Pneumonia Qualified Codes: J18.9 - Pneumonia, unspecified organism Additional Impressions: Acute and chronic respiratory failure with hypoxia Chest pain Qualified Codes: R07.9 - Chest pain, unspecified Person under investigation for COVID-19 Sepsis Qualified Codes: A41.9 - Sepsis, unspecified organism; R65.20 - Severe sepsis without septic shock; J96.01 - Acute respiratory failure with hypoxia Disposition: 01 HOME, SELF-CARE Condition: Stable Admissions Decision to Admit Reason: Admit from ER (General) Decision to Admit/Date: Dec 23, 2019 Time/Decision to Admit Time: 15:00 Departure-Patient Inst. Referrals: REJI PRUITT MD (PCP/Family) Primary Care Physician ROB WEST Dec 23, 2019 14:16
[2019-12-23 14:33] LABS: INR 1.5 (0.8-1.4); PROTHROMBIN TIME PATIENT 18.6 SEC (12.2-14.7)
[2019-12-23 14:35] LABS: ALANINE AMINOTRANSFERASE 15 U/L (0-55); ALBUMIN 4.3 GM/DL (3.2-4.5); ALKALINE PHOSPHATASE 100 U/L (40-136); BILIRUBIN,TOTAL 2.5 MG/DL (0.1-1.0); BUN/CREATININE RATIO 13; CALCIUM 9.7 MG/DL (8.5-10.1); CARBON DIOXIDE 21 MMOL/L (21-32); CHLORIDE 108 MMOL/L (98-107); CREATININE SERUM 1.21 MG/DL (0.60-1.30); GFR ESTIMATED 58; GLUCOSE 101 MG/DL (70-105); POTASSIUM 4.1 MMOL/L (3.6-5.0); SODIUM 141 MMOL/L (135-145); TOTAL PROTEIN 7.6 GM/DL (6.4-8.2)
[2019-12-23] MEDS ORDERED: VANCOMYCIN 1,750 MG/NS 500 ML IVPB IV NR ×2 (14:45)
[2019-12-23] MEDS ORDERED: VANCOMYCIN INJECTION 750 MG in NS (IVPB) 250 ML IV ONE (15:15)
--- NOTE | 2019-12-23 15:23 | Diagnostic Imaging Report ---
INDICATION: Sepsis COMPARISON: 04/21/2019 TECHNIQUE: Single radiograph of the chest dated 12/23/2019. FINDINGS: Postsurgical changes of the median sternotomy. Prosthetic cardiac valve again noted. Loop recorder seen overlying left chest. The cardiac silhouette is significantly enlarged. No definite pulmonary vascular congestion, though pulmonary vasculature is partially obscured. Low lung volumes. Background chronic interstitial lung changes are again identified. However, significantly increasing opacities are noted involving the bilateral lung bases and mid lungs. No significant pleural effusion. No pneumothorax. No acute osseous abnormality. IMPRESSION: Extensive new bilateral pulmonary infiltrates superimposed upon chronic interstitial lung changes. Findings concerning for a superimposed infectious etiology. Interstitial edema felt less likely given lack of significant pulmonary vascular congestion or pleural effusion. Persistent cardiomegaly with postsurgical changes as above. Dictated by: Dictated on workstation # [id number]
[2019-12-23 16:07] LABS: BILIRUBIN,URINE NEGATIVE (NEGATIVE); CLARITY,URINE CLEAR; COLOR,URINE YELLOW; GLUCOSE, URINE (UA) NEGATIVE (NEGATIVE); KETONES,URINE NEGATIVE (NEGATIVE); LEUKOCYTE ESTERASE ,URINE NEGATIVE (NEGATIVE); NITRITE,URINE NEGATIVE (NEGATIVE); PROTEIN,URINE NEGATIVE (NEGATIVE)
[2019-12-23 16:14] LABS: BACTERIA,URINE NEGATIVE /HPF; SQUAMOUS EPITHELIAL CELL,UR RARE /HPF
[2019-12-23] MEDS ORDERED: ONDANSETRON 4 MG/2 ML (SDV) Z0FRAN IVP PRN (18:15)
[2019-12-23] MEDS ORDERED: PIPERACILLIN/TAZOBACTAM (BULK) 4.5 GM in NS (IVPB) 100 ML IV ONE (18:15)
--- NOTE | 2019-12-23 18:22 | NUR ---
JESSICA NOBLE admitted to room 511-1, with an admitting diagnosis of PNA, on 12/23/19 from [facility] ED via [facility], accompanied by STAFF. JESSICA NOBLE introduced to surroundings, call light, bed controls, phone, TV, temperature control, lights, meal times, smoking policy, visitor policy, side rail policy, bathrooms and showers. Patient Rights given to patient in the handbook. JESSICA NOBLE verbalizes understanding that [facility] is not responsible for the loss or damage to any personal effects or valuables that are kept in the patients possession during their hospitalization. The following Patient Care Plans were discussed with the PATIENT: Discharge Planning, PAIN MANAGEMENT, DEHYDRATION, and MEDIATIONS. JESSICA NOBLE verbalizes understanding of Interdisciplinary Patient Education. Patient and/or family were informed about the Rapid Response Team and its purpose.
[2019-12-23 18:36] VITALS: BP 127/103
[2019-12-23] MEDS: LACTATED RINGERS 1,000 ML IV SCH (18:58)
[2019-12-23 20:21] VITALS: BP 127/103
[2019-12-23] MEDS: APIXABAN 5 MG (ELIQUIS) TABLET PO SCH (20:27)
[2019-12-23] MEDS: PIPERACILLIN/TAZOBACTAM (BULK) 4.5 GM in NS (IVPB) 100 ML IV SCH (20:28)
[2019-12-23] MEDS: SOTALOL 80 MG (BETAPACE) TAB PO SCH (20:28)
[2019-12-23] MEDS: AZITHROMYCIN INJECTION 500 MG in NS (IVPB) 250 ML IV SCH (20:29)
[2019-12-23 20:37] VITALS: BP 145/97
[2019-12-23] MEDS ORDERED: RT-ALBUTEROL INHALER HFA (VENTOLIN HFA) 18 GM IH SCH (22:00)
[2019-12-23] MEDS ORDERED: IPRATROPIUM INHALER (ATROVENT) 12.9 GM INH SCH (22:00)
--- NOTE | 2019-12-23 22:46 | NUR ---
pt updated at this time
[2019-12-24] VITALS (12 sets, daily range): BP systolic 112–156; BP diastolic 79–115
[2019-12-24] MEDS: LACTATED RINGERS 1,000 ML IV SCH ×5 (02:07→18:45)
[2019-12-24 03:36] LABS: BASOPHILS % (AUTO) 1 % (0-10); EOSINOPHILS # (AUTO) 0.1 10^3/uL (0.0-0.3); EOSINOPHILS % (AUTO) 1 % (0-10); HEMATOCRIT 43 % (40-54); HEMOGLOBIN 13.8 g/dL (13.3-17.7); LYMPHOCYTES # (AUTO) 0.8 10^3/uL (1.0-4.0); LYMPHOCYTES % (AUTO) 11 % (12-44); MEAN CORPUSCULAR HEMOGLOBIN 32 pg (25-34); MEAN CORPUSCULAR HGB CONC 32 g/dL (32-36); MEAN CORPUSCULAR VOLUME 99 fL (80-99); MEAN PLATELET VOLUME 9.8 fL (9.0-12.2); MONOCYTES # (AUTO) 0.7 10^3/uL (0.0-1.0); MONOCYTES % (AUTO) 9 % (0-12); NEUTROPHILS # (AUTO) 5.9 10^3/uL (1.8-7.8); NEUTROPHILS % (AUTO) 79 % (42-75); PLATELET COUNT 205 10^3/uL (130-400); WHITE BLOOD COUNT 7.5 10^3/uL (4.3-11.0)
[2019-12-24 03:47] LABS: ALBUMIN 3.8 GM/DL (3.2-4.5)
[2019-12-24 03:48] LABS: CHLORIDE 111 MMOL/L (98-107); SODIUM 141 MMOL/L (135-145)
[2019-12-24 03:49] LABS: CALCIUM 9.1 MG/DL (8.5-10.1)
[2019-12-24 03:50] LABS: GLUCOSE 81 MG/DL (70-105); TOTAL PROTEIN 6.6 GM/DL (6.4-8.2)
[2019-12-24 03:51] LABS: CARBON DIOXIDE 17 MMOL/L (21-32)
[2019-12-24 03:52] LABS: BILIRUBIN,TOTAL 2.1 MG/DL (0.1-1.0)
[2019-12-24 03:53] LABS: ALKALINE PHOSPHATASE 84 U/L (40-136)
[2019-12-24 03:54] LABS: CREATININE SERUM 0.96 MG/DL (0.60-1.30); GFR ESTIMATED > 60
[2019-12-24 03:55] LABS: BUN/CREATININE RATIO 15
[2019-12-24 03:57] LABS: ALANINE AMINOTRANSFERASE 13 U/L (0-55)
--- NOTE | 2019-12-24 04:23 | NUR ---
NOTIFIED DR GALVAN OF PT NEGATIVE COVID TEST-ORDERS TO D/C ISOLATION
[2019-12-24] MEDS: PIPERACILLIN/TAZOBACTAM (BULK) 4.5 GM in NS (IVPB) 100 ML IV SCH ×3 (05:13→20:53)
[2019-12-24] MEDS ORDERED: RT-ALBUTEROL/IPRATROPIUM 3 ML (DUONEB) VIAL ONE (07:44)
[2019-12-24] MEDS: RT-ALBUTEROL/IPRATROPIUM 3 ML (DUONEB) VIAL INH SCH ×5 (07:47→23:51)
[2019-12-24] MEDS: ADVAIR HFA 115/21 MCG INHALER 8 GM IH SCH ×2 (07:47→18:50)
--- NOTE | 2019-12-24 07:48 | Diagnostic Imaging Report ---
INDICATION: Pneumonia. Time of exam 3:41 AM Correlation is made with prior chest from one day earlier. The heart is enlarged and stable. There are changes of median sternotomy. Bilateral pulmonary infiltrates are noted. These appear to be increased in the right throughout the right lung when compared with yesterday's study. Left lung appears stable. No significant pleural fluid is seen. There is no pneumothorax. IMPRESSION: Bilateral infiltrates, worsening on the right when compared with examination one day earlier. Dictated by: Dictated on workstation # [id number]
[2019-12-24] MEDS: APIXABAN 5 MG (ELIQUIS) TABLET PO SCH ×2 (08:39→20:18)
[2019-12-24] MEDS: SOTALOL 80 MG (BETAPACE) TAB PO SCH ×2 (08:39→20:18)
[2019-12-24] MEDS ORDERED: dilTIAZem DRIP PRE-MIX 125 ML IV ONE (10:51)
[2019-12-24] MEDS: dilTIAZem DRIP PRE-MIX 125 ML IV SCH (11:04)
--- NOTE | 2019-12-24 11:06 | Consultation-Cardiology ---
HPI-Cardiology Cardiology Consultation Date of Consultation 12/24/19 Date of Admission Time Seen by Provider: 11:01 Indication: atrial flutter HPI 79 years old gentleman with extensive cardiac history, has underlying COPD, oxygen dependent, started to have worsening shortness of breath for the past 2 weeks which was progressive to the point that patient was having significant d yspnea with minimal exertion. Came into the emergency room and diagnosed with acute exacerbation of COPD. He is admitted and currently on Vapotherm, noted to be in atrial fibrillation/flutter with rapid ventricular response while taking large dose of diltiazem and still having tachycardia. Reported mild chest discomfort, palpitation. No syncope or near syncopal episodes Home Medications & Allergies Allergies: Coded Allergies: shellfish derived (Unverified Allergy, Severe, ANAPHYLAXIS, 02/18/19) meperidine (Unverified Allergy, Intermediate, LOW BP, N/V, 02/18/19) Home Medication List Reviewed: Yes [id number] Hx Patient Social History Marital Status: Employed/Student: retired Alcohol Use: Denies Use Recreational Drug Use: No Smoking Status: Former Smoker Former smoker/When Quit: Feb 09, 1999 Type Used: Cigarettes 2nd Hand Smoke Exposure: Yes Recent Foreign Travel: No Recent Infectious Disease Expo: No Recent Hopitalizations: No Immunizations Up To Date Tetanus Booster (TDap): Unknown Date of Pneumonia Vaccine: Apr 17, 2016 Date of Influenza Vaccine: Nov 10, 2019 Past Medical History Discussed below Family Medical History Significant Family History: Cancer Family Medical Hx Noncontributory Review of Systems-General Review of Systems Constitutional: see HPI; No chills, No diaphoresis; malaise, weakness EENTM: see HPI; No ear discharge, No ear pain Respiratory: see HPI; No cough; dyspnea on exertion, orthopnea; No phlegm; short of breath, stridor, wheezing Cardiovascular: see HPI, chest pain, edema; No Hx of Intervention; palpitations Gastrointestinal: no symptoms reported, see HPI Genitourinary: see HPI; No discharge, No dysuria, No nocturia Musculoskeletal: see HPI; No back pain, No joint pain Skin: see HPI; No pruritus, No rash Psychiatric/Neurological: See HPI; Denies Anxiety, Denies Depressed All Other Systems Reviewed Negative Unless Noted: Yes Reviewed Test Results Reviewed Test Results Lab Laboratory Tests Test 12/23/19 13:56 12/23/19 14:05 12/23/19 14:06 12/23/19 15:10 Range/Units Coronavirus 2019 (CAROLYN) Negative Negative White Blood Count 6.3 4.3-11.0 10^3/uL Red Blood Count 4.85 4.30-5.52 10^6/uL Hemoglobin 15.3 13.3-17.7 g/dL Hematocrit 48 40-54 % Mean Corpuscular Volume 99 80-99 fL Mean Corpuscular Hemoglobin 32 25-34 pg Mean Corpuscular Hemoglobin Concent 32 32-36 g/dL Red Cell Distribution Width 16.0 H 10.0-14.5 % Platelet Count 246 130-400 10^3/uL Mean Platelet Volume 9.3 9.0-12.2 fL Immature Granulocyte % (Auto) 1 % Neutrophils (%) (Auto) 70 42-75 % Lymphocytes (%) (Auto) 18 12-44 % Monocytes (%) (Auto) 10 0-12 % Eosinophils (%) (Auto) 1 0-10 % Basophils (%) (Auto) 1 0-10 % Neutrophils # (Auto) 4.4 1.8-7.8 10^3/uL Lymphocytes # (Auto) 1.1 1.0-4.0 10^3/uL Monocytes # (Auto) 0.6 0.0-1.0 10^3/uL Eosinophils # (Auto) 0.1 0.0-0.3 10^3/uL Basophils # (Auto) 0.1 0.0-0.1 10^3/uL Immature Granulocyte # (Auto) 0.0 0.0-0.1 10^3/uL Prothrombin Time 18.6 H 12.2-14.7 SEC INR Comment 1.5 H 0.8-1.4 Activated Partial Thromboplast Time 35 24-35 SEC Sodium Level 141 135-145 MMOL/L Potassium Level 4.1 3.6-5.0 MMOL/L Chloride Level 108 H 98-107 MMOL/L Carbon Dioxide Level 21 21-32 MMOL/L Anion Gap 12 5-14 MMOL/L Blood Urea Nitrogen 16 7-18 MG/DL Creatinine 1.21 0.60-1.30 MG/DL Estimat Glomerular Filtration Rate 58 BUN/Creatinine Ratio 13 Glucose Level 101 70-105 MG/DL Lactic Acid Level 1.32 0.50-2.00 MMOL/L Calcium Level 9.7 8.5-10.1 MG/DL Corrected Calcium 9.5 8.5-10.1 MG/DL Total Bilirubin 2.5 H 0.1-1.0 MG/DL Aspartate Amino Transf (AST/SGOT) 23 5-34 U/L Alanine Aminotransferase (ALT/SGPT) 15 0-55 U/L Alkaline Phosphatase 100 40-136 U/L Troponin I < 0.028 <0.028 NG/ML B-Type Natriuretic Peptide 523.7 H <100.0 PG/ML Total Protein 7.6 6.4-8.2 GM/DL Albumin 4.3 3.2-4.5 GM/DL Blood Gas Puncture Site RT RAD Blood Gas Patient Temperature 95.8 Arterial Blood pH 7.42 7.37-7.43 Arterial Blood Partial Pressure CO2 28 L 35-45 MMHG Arterial Blood Partial Pressure O2 135 H 79-93 MMHG Arterial Blood HCO3 18 L 23-27 MMOL/L Arterial Blood Total CO2 18.9 L 21.0-31.0 MMOL/L Arterial Blood Oxygen Saturation 99 94-100 % Arterial Blood Base Excess -5.9 L -2.5-2.5 MMOL/L Alexy Test YES-POS Blood Gas Ventilator Setting NO Blood Gas Inspired Oxygen 15 L Coronavirus (COVID-19)(PCR) Negative Negative Test 12/23/19 15:58 12/23/19 20:35 12/24/19 03:00 Range/Units Urine Color YELLOW Urine Clarity CLEAR Urine pH 6.0 5-9 Urine Specific [place] 1.020 1.016-1.022 Urine Protein NEGATIVE NEGATIVE Urine Glucose (UA) NEGATIVE NEGATIVE Urine Ketones NEGATIVE NEGATIVE Urine Nitrite NEGATIVE NEGATIVE Urine Bilirubin NEGATIVE NEGATIVE Urine Urobilinogen 2.0 < = 1.0 MG/DL Urine Leukocyte Esterase NEGATIVE NEGATIVE Urine RBC (Auto) NEGATIVE NEGATIVE Urine RBC NONE /HPF Urine WBC NONE /HPF Urine Squamous Epithelial Cells RARE /HPF Urine Crystals NONE /LPF Urine Bacteria NEGATIVE /HPF Urine Casts NONE /LPF Urine Mucus NEGATIVE /LPF Urine Culture Indicated NO Troponin I < 0.028 < 0.028 <0.028 NG/ML White Blood Count 7.5 4.3-11.0 10^3/uL Red Blood Count 4.37 4.30-5.52 10^6/uL Hemoglobin 13.8 13.3-17.7 g/dL Hematocrit 43 40-54 % Mean Corpuscular Volume 99 80-99 fL Mean Corpuscular Hemoglobin 32 25-34 pg Mean Corpuscular Hemoglobin Concent 32 32-36 g/dL Red Cell Distribution Width 15.9 H 10.0-14.5 % Platelet Count 205 130-400 10^3/uL Mean Platelet Volume 9.8 9.0-12.2 fL Immature Granulocyte % (Auto) 0 % Neutrophils (%) (Auto) 79 H 42-75 % Lymphocytes (%) (Auto) 11 L 12-44 % Monocytes (%) (Auto) 9 0-12 % Eosinophils (%) (Auto) 1 0-10 % Basophils (%) (Auto) 1 0-10 % Neutrophils # (Auto) 5.9 1.8-7.8 10^3/uL Lymphocytes # (Auto) 0.8 L 1.0-4.0 10^3/uL Monocytes # (Auto) 0.7 0.0-1.0 10^3/uL Eosinophils # (Auto) 0.1 0.0-0.3 10^3/uL Basophils # (Auto) 0.0 0.0-0.1 10^3/uL Immature Granulocyte # (Auto) 0.0 0.0-0.1 10^3/uL Sodium Level 141 135-145 MMOL/L Potassium Level 4.0 3.6-5.0 MMOL/L Chloride Level 111 H 98-107 MMOL/L Carbon Dioxide Level 17 L 21-32 MMOL/L Anion Gap 13 5-14 MMOL/L Blood Urea Nitrogen 14 7-18 MG/DL Creatinine 0.96 0.60-1.30 MG/DL Estimat Glomerular Filtration Rate > 60 BUN/Creatinine Ratio 15 Glucose Level 81 70-105 MG/DL Calcium Level 9.1 8.5-10.1 MG/DL Corrected Calcium 9.3 8.5-10.1 MG/DL Total Bilirubin 2.1 H 0.1-1.0 MG/DL Aspartate Amino Transf (AST/SGOT) 24 5-34 U/L Alanine Aminotransferase (ALT/SGPT) 13 0-55 U/L Alkaline Phosphatase 84 40-136 U/L Total Protein 6.6 6.4-8.2 GM/DL Albumin 3.8 3.2-4.5 GM/DL Physical Exam Physical Exam Vital Signs Vital Signs - First Documented 12/23/19 12/23/19 12/23/19 13:40 13:42 20:21 Temp 35.4 Pulse 106 Resp 26 B/P (MAP) 121/89 (100) Pulse Ox 86 O2 Delivery Room Air O2 Flow Rate 15.00 FiO2 40 Capillary Refill : Less Than 3 Seconds Height, Weight, BMI Height: 5'11.00" Weight: 251lbs. 0.8oz. [id number]; 33.19 BMI Method:Stated General Appearance: No Apparent Distress, WD/WN Eyes: Bilateral Eye Normal Inspection, Bilateral Eye PERRL, Bilateral Eye EOMI HEENT: PERRL/EOMI, TMs Normal, Normal ENT Inspection, Pharynx Normal, Moist Mucous Membranes Neck: Full Range of Motion, Normal Inspection, Non Tender, Supple, Carotid Bruit Respiratory: Crackles, Decreased Breath Sounds, Respiratory Distress, Stridor, Wheezing Cardiovascular: Normal Peripheral Pulses, Systolic Murmur, Irregularly Irregular, Tachycardia Gastrointestinal: Normal Bowel Sounds, No Organomegaly, No Pulsatile Mass, Non Tender, Soft Back: Normal Inspection, No CVA Tenderness, No Vertebral Tenderness Extremity: Normal Capillary Refill, Normal Inspection, Normal Range of Motion, Non Tender, No Calf Tenderness, Pedal Edema Neurologic/Psychiatric: Alert, Oriented x3, No Motor/Sensory Deficits, Normal Mood/Affect Skin: Normal Color, Warm/Dry Lymphatic: No Adenopathy A/P-Cardiology Admission Diagnosis Acute respiratory failure Paroxysmal atrial fibrillation Chest pain Hypertension Assessment/Plan Shortness of breath, acute on chronic respiratory failure, maintained on Vapotherm 80 percent, managed by primary care team Paroxysmal atrial fibrillation/flutter, had ablation done with Dr. Pratt in April 2019. Currently on diltiazem and sotalol, back in atrial flutter with rapid ventricular response, maintained on oral anticoagulation and assured me that he did not miss any doses of anticoagulation. I will start him on Cardizem drip in addition to the oral diltiazem and I am planning to proceed with electrical cardioversion in the morning. Chest pain, nonspecific etiology, Stress test done July 2018 revealed no ischemia or infarct. Probably secondary to hypoxemia and tachycardia, underlying coronary artery disease cannot be excluded, Cardec enzymes were neg ative. History of mitral valve repair with annuloplasty ring [place] [address] Dean, has been asymptomatic, last echocardiogram was done in November 2018 showing ejection fraction 55-65 percent, left atrium 5.4 cm, the mitral valve has some deterioration compared to the previous study. [id number] score is 3, yearly risk of stroke without oral anticoagulation is 3 .2 percent. Maintained on Eliquis. Continue to monitor. 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 Ibrahim at [facility], had ablation with Dr Pratt in April 2019, continue on sotalol for now and monitor Hypertension, monitor blood pressure while on diltiazem drip and oral in addition to sotalol Hyperlipidemia, continue to monitor lipids Hemochromatosis- followed by Dr. Lynn. History of heart catheterization done in 2009 and reported to have no significant obstructive disease in his coronaries, continue to monitor no changes are recommended History of syncope after the heart catheterization of unknown etiology. Diabetes mellitus, controlled by diet, followed and managed by primary care physician COPD/Obstructive sleep apnea use C Pap at night, followed and managed by Dr. Jackson Sjogermari syndrome, fibromyalgia, spinal stenosis, osteoporosis, osteoarthritis, left elbow ulnar nerve release, carpal tunnel release, bilateral inguinal hernia repair Clinical Quality Measures DVT/VTE Risk/Contraindication: Risk Factor Score Per Nursin RFS Level Per Nursing on Admit: 4+=Very High MIRLANDE COOPER MD Dec 24, 2019 11:06
[2019-12-24] MEDS ORDERED: NS IV 500 ML 500 ML ONE (12:13)
[2019-12-24] MEDS ORDERED: NS 100 ML (IVPB) BAG IV ONE (12:15)
[2019-12-24] MEDS ORDERED: ALPRAZolam 0.25 MG (XANAX) TAB PO ONE (13:15)
[2019-12-24] MEDS ORDERED: FUROSEMIDE 40 MG/4 ML INJ (LASIX) IVP ONE (13:30)
[2019-12-24] MEDS ORDERED: methylPREDNISolone 125 MG (Solu-MEDROL) VIAL IVP ONE (13:30)
--- NOTE | 2019-12-24 13:36 | History & Physical ---
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 He has a history of oxygen requiring COPD as well as chronic atrial fibrillaiton and was found to be hypoxic. His influenza and rapid covid tests were negative. He was placed on BIPAP and started on antibiotics for pneumonia and will be admitted to cardiac stepdown. He went into atrial flutter after admission so cardiology was consulted and he is now on a cardizem drip with plan for cardioversion by Dr. Nur tomorrow. He is currently on Vapotherm at 80% and anxious. Date of Admission Dec 23, 2019 at 16:16 Date Seen by a Provider: Dec 24, 2019 Time Seen by a Provider: 13:31 I consulted on this patient on 12/24/19 13:30 Attending Physician Aubree Mauricio DO Admitting Physician Lisa Pruitt MD Consult Allergies and Home Medications Allergies Coded Allergies: shellfish derived (Unverified Allergy, Severe, ANAPHYLAXIS, 02/18/19) meperidine (Unverified Allergy, Intermediate, LOW BP, N/V, 02/18/19) Home Medications Albuterol Sulfate 1 Puff Puff, 2 PUFF INH Q4H PRN for SHORTNESS OF BREATH, (Reported) 1 PUFF = 90 MCG Apixaban 5 Mg Tablet, 5 MG PO BID, (Reported) Diltiazem HCl 180 Mg Cap.er.24h, 180 MG PO DAILY, (Reported) Fluticasone/Salmeterol 1 Each Blst.w.dev, 1 EACH IH Q12H, (Reported) Gemfibrozil 600 Mg Tablet, 600 MG PO BID, (Reported) Lisinopril 20 Mg Tablet, 20 MG PO BID, (Reported) Melatonin 3 Mg Tablet, 6-9 MG PO HS PRN for SLEEP, (Reported) TAKES 2 (3MG) TABLETS Montelukast Sodium 10 Mg Tablet, 10 MG PO DAILY, (Reported) Omeprazole 40 Mg Capsule.dr, 40 MG PO HS, (Reported) Pravastatin Sodium 20 Mg Tablet, 20 MG PO DAILY, (Reported) Sildenafil Citrate 20 Mg Tablet, 50 MG PO DAILY PRN for ED, (Reported) TAKES 2 & 1/2 (20MG) TABLETS Sotalol HCl 80 Mg Tablet, 80 MG PO BID, (Reported) Tamsulosin HCl 0.4 Mg Cap, 0.4 MG PO DAILY, (Reported) Testosterone Cypionate 200 Mg/1 Ml Vial, 200 MG INJ EVERY 2 WEEKS, (Reported) Tiotropium [place] 4 Gm Mist.inhal, 2 PUFF IH DAILY, (Reported) Tramadol HCl 50 Mg Tablet, 50-100 MG PO QID PRN for PAIN-MODERATE, (Reported) Patient Home Medication List Home Medication List Reviewed: Yes Past Nmtmuoq-Yxugxh-Czlmio Hx Past Med/Social Hx: Reviewed Nursing Past Med/Soc Hx Patient Social History Marrital Status: Employed/Student: retired Alcohol Use: Denies Use Recreational Drug Use: No Smoking Status: Former Smoker Former Smoker, Quit: Feb 19, 2004 Type Used: Cigarettes 2nd Hand Smoke Exposure: Yes Recent Foreign Travel: No Contact w/other who traveled: No Recent Hopitalizations: No Recent Infectious Disease Expo: No Immunizations Up To Date Tetanus Booster (TDap): Unknown Date of Pneumonia Vaccine: Apr 17, 2016 Date of Influenza Vaccine: Nov 10, 2019 Seasonal Allergies Seasonal Allergies: No Past Medical History Surgeries: Joint Replacement Currently Using CPAP: Yes Currently Using BIPAP: No Cardiac: Atrial Fibrillation, Hypertension, Valvular Heart Disease Neurological: Headaches /Migraines Reproductive: No Sexually Transmitted Disease: No HIV/AIDS: No Genitourinary: Kidney Stones Gastrointestinal: Gastroesophageal Reflux, Hiatal Hernia Musculoskeletal: Arthritis, Fibromyalgia, Chronic Back Pain Endocrine: Diabetes, Non-Insulin dep HEENT: Cataract Loss of Vision: Denies Hearing Impairment: Hard of Hearing, Bilateral Hearing Aide Cancer: Skin Did You Recieve Any Treatments: Yes What Type of Treatment Did You: Surgical Intervention History of Blood Disorders: No Adverse Reaction to Blood Wray: No (N/A) Family History Cancer Review of Systems Constitutional: weakness EENTM: No see HPI, No no symptoms reported, No ear discharge, No hearing loss, No ear pain, No blurred vision, No double vision, No eye pain, No tearing, No vision loss, No dental problems, No hoarseness, No mouth pain, No mouth swelling, No epistaxis, No nose congestion, No nose pain, No throat pain, No throat swelling, No other Respiratory: dyspnea on exertion, short of breath Cardiovascular: palpitations Gastrointestinal: No RUQ, No LUQ, No RLQ, No LLQ, No no symptoms reported, No see HPI, No abdominal pain, No constipation, No diarrhea, No dysphagia, No hematemesis, No heartburn, No jaundice, No loss of appetite, No melena, No nausea, No vomiting, No other Genitourinary: No no symptoms reported, No see HPI, No decreased output, No discharge, No dysuria, No frequency, No hematuria, No hesitancy, No incontinence, No nocturia, No pain, No other Musculoskeletal: back pain Skin: No no symptoms reported, No see HPI, No change in color, No change in hair/nails, No dryness, No hx of skin cancer, No lesions, No lumps, No pruritus, No rash, No other Psychiatric/Neurological: Anxiety, Weakness Physical Exam Vital Signs Vital Signs - First Documented 12/23/19 12/23/19 12/23/19 13:40 13:42 20:21 Temp 35.4 Pulse 106 Resp 26 B/P (MAP) 121/89 (100) Pulse Ox 86 O2 Delivery Room Air O2 Flow Rate 15.00 FiO2 40 Capillary Refill : Less Than 3 Seconds Height, Weight, BMI Height: 5'11.00" Weight: 251lbs. 0.8oz. 112.232181zg; 33.19 BMI Method:Stated General Appearance: Mild Distress (on vapotherm) HEENT: Pharyngeal Erythema Neck: Supple Respiratory: Lungs Clear, Decreased Breath Sounds Cardiovascular: Systolic Murmur, Irregularly Irregular Gastrointestinal: Normal Bowel Sounds, Non Tender, Soft Rectal: Deferred Back: No CVA Tenderness Extremity: Non Tender, No Calf Tenderness, No Pedal Edema Neurologic/Psychiatric: Alert, Oriented x3 Skin: Warm/Dry Comments Laboratory Tests 12/23/19 13:56: Coronavirus 2019 (CAROLYN) Negative 12/23/19 14:05: White Blood Count 6.3, Red Blood Count 4.85, Hemoglobin 15.3, Hematocrit 48, Mean Corpuscular Volume 99, Mean Corpuscular Hemoglobin 32, Mean Corpuscular Hemoglobin Concent 32, Red Cell Distribution Width 16.0H, Platelet Count 246, Mean Platelet Volume 9.3, Immature Granulocyte % (Auto) 1, Neutrophils (%) (Auto) 70, Lymphocytes (%) (Auto) 18, Monocytes (%) (Auto) 10, Eosinophils (%) (Auto) 1, Basophils (%) (Auto) 1, Neutrophils # (Auto) 4.4, Lymphocytes # (Auto) 1.1, Monocytes # (Auto) 0.6, Eosinophils # (Auto) 0.1, Basophils # (Auto) 0.1, Immature Granulocyte # (Auto) 0.0, Prothrombin Time 18.6H, INR Comment 1.5H, Activated Partial Thromboplast Time 35, Sodium Level 141, Potassium Level 4.1, Chloride Level 108H, Carbon Dioxide Level 21, Anion Gap 12, Blood Urea Nitrogen 16, Creatinine 1.21, Estimat Glomerular Filtration Rate 58, BUN/Creatinine Ratio 13, Glucose Level 101, Lactic Acid Level 1.32, Calcium Level 9.7, Corrected Calcium 9.5, Total Bilirubin 2.5H, Aspartate Amino Transf (AST/SGOT) 23, Alanine Aminotransferase (ALT/SGPT) 15, Alkaline Phosphatase 100, Troponin I < 0.028, B- Type Natriuretic Peptide 523.7H, Total Protein 7.6, Albumin 4.3 12/23/19 14:06: Blood Gas Puncture Site RT RAD, Blood Gas Patient Temperature 95.8, Arterial Blood pH 7.42, Arterial Blood Partial Pressure CO2 28L, Arterial Blood Partial Pressure O2 135H, Arterial Blood HCO3 18L, Arterial Blood Total CO2 18.9L, Arterial Blood Oxygen Saturation 99, Arterial Blood Base Excess -5.9L, Alexy Test YES-POS, Blood Gas Ventilator Setting NO, Blood Gas Inspired Oxygen 15 L 12/23/19 15:10: Coronavirus (COVID-19)(PCR) Negative 12/23/19 15:58: Urine Color YELLOW, Urine Clarity CLEAR, Urine pH 6.0, Urine Specific [place] 1. 020, Urine Protein NEGATIVE, Urine Glucose (UA) NEGATIVE, Urine Ketones NEGATIVE, Urine Nitrite NEGATIVE, Urine Bilirubin NEGATIVE, Urine Urobilinogen 2.0, Urine Leukocyte Esterase NEGATIVE, Urine RBC (Auto) NEGATIVE, Urine RBC NONE, Urine WBC NONE, Urine Squamous Epithelial Cells RARE, Urine Crystals NONE, Urine Bacteria NEGATIVE, Urine Casts NONE, Urine Mucus NEGATIVE, Urine Culture Indicated NO 12/23/19 20:35: Troponin I < 0.028 12/24/19 03:00: Troponin I < 0.028, White Blood Count 7.5, Red Blood Count 4.37, Hemoglobin 13.8, Hematocrit 43, Mean Corpuscular Volume 99, Mean Corpuscular Hemoglobin 32, Mean Corpuscular Hemoglobin Concent 32, Red Cell Distribution Width 15.9H, Platelet Count 205, Mean Platelet Volume 9.8, Immature Granulocyte % (Auto) 0, Neutrophils (%) (Auto) 79H, Lymphocytes (%) (Auto) 11L, Monocytes (%) (Auto) 9, Eosinophils (%) (Auto) 1, Basophils (%) (Auto) 1, Neutrophils # (Auto) 5.9, Lymphocytes # (Auto) 0.8L, Monocytes # (Auto) 0.7, Eosinophils # (Auto) 0.1, Basophils # (Auto) 0.0, Immature Granulocyte # (Auto) 0.0, Sodium Level 141, Potassium Level 4.0, Chloride Level 111H, Carbon Dioxide Level 17L, Anion Gap 13, Blood Urea Nitrogen 14, Creatinine 0.96, Estimat Glomerular Filtration Rate > 60, BUN/Creatinine Ratio 15, Glucose Level 81, Calcium Level 9.1, Corrected Calcium 9.3, Total Bilirubin 2.1H, Aspartate Amino Transf (AST/SGOT) 24, Alanine Aminotransferase (ALT/SGPT) 13, Alkaline Phosphatase 84, Total Protein 6.6, Albumin 3.8 Microbiology 12/23/19 Urine Culture - Final, Complete NO GROWTH 12/23/19 Gram Stain - Final, Resulted 12/23/19 Sputum Culture - Preliminary, Resulted Usual upper respiratory tristan Assessment/Plan Assessment and Plan 1. Acute Respiratory Failure--admitted on BIPAP, now on Vapotherm at 80% 2. Acute COPD exacerbation--add IV solumedrol 3. Atrial Fibrillation/Atrial Flutter--on cardizem drip and Eliquis with plan for cardioversion tomorrow 4. Acute Bilateral Pneumonia--on Zosyn and zithromax Admission Diagnosis Admission Status: Inpatient Order (span 2 midnights) Reason for Inpatient Admission: Will require at least 48hrs IV antibiotics as well as IV cardizem Clinical Quality Measures DVT/VTE Risk/Contraindication: Risk Factor Score Per Nursin RFS Level Per Nursing on Admit: 4+=Very High AUBREE AMURICIO DO Dec 24, 2019 13:36
--- NOTE | 2019-12-24 14:40 | NUR ---
THIS RN FILLED OUT ADD ON PAPER, FAXED TO [employer] AND PUT COPY ON HOUSE PANKAJ GOINS, DESK. FAX CONFIRMATIONS AND ORIGINAL COPY PUT IN THE CHART. CONSENT FOR CARDIOVERSION SIGNED AND IN CHART WELL.
--- NOTE | 2019-12-24 15:00 | NUR ---
DR COOPER GAVE ORDERS TO MOVE PT TO ICU. PT HAS BEEN OVERLY ANXIOUS TODAY D/T DIFFERENT BREATHING APPARATUS' THAT HE IS NOT USE TO AND HIS CONDITION. HE NOW HAS HIS HOME CPAP ON AT 15 ML 0F 02 AND IS FEELING MUCH BETTER. RR ARE DOWN AND HE IS SPEAKING MORE CLEARLY AND ABLE TO MOVE BETTER NOW THAT HE HAS HIS OWN CPAP ON. PULSES REMAIN IN 140'S AND BP REMAINS 140'S/100'S. DR COOPER THOUGHT IT WOULD BE BEST TO MOVE HIM OVER TO ICU SINCE HE WOULD BE IN A ICU ROOM TOMORROW FOR A CARDIOVERSION. PT NOTIFIED AND AGREEABLE. ICU ASSOCIATE PROFESSOR OF HISTORY NOTIFIED AND HE WILL BE GOING TO CU[facility]6 WHEN IT IS CLEANED AND SURGERY IS DONE RECOVERING PT IN ROOM. PASCUAL, PTS NOTIFIED OF THIS AND SHE REPORTED SHE WILL CALL THEIR SON, FAM.
[2019-12-24] MEDS: ACETAMINOPHEN 325 MG TABLET PO PRN ×2 (16:05→22:39)
[2019-12-24] MEDS: TAMSULOSIN 0.4 MG (FLOMAX) CAP PO SCH (18:43)
[2019-12-24] MEDS: methylPREDNISolone 125 MG (Solu-MEDROL) VIAL IVP SCH ×2 (18:44→23:46)
[2019-12-24] MEDS: AZITHROMYCIN INJECTION 500 MG in NS (IVPB) 250 ML IV SCH (18:45)
--- NOTE | 2019-12-24 22:01 | NUR ---
PT O2 SATS MID 80'S AND DROPPING INTO 70'S AND SUSTAINING, PT WEARING CPAP WITH 15L BLED IN. THIS RN ATTEMPTED THERAPEUTIC COMMUNICATION. EDUCATION PROVIDED ON BIPAP AND NEED TO WEAR IT, PT REFUSED AND STATED "SOMETIMES AT HOME IT IS LOW WELL. IT DIPS DOWN AND THEN COMES BACK UP AGAIN." WILL CONTINUE TO MONITOR.
[2019-12-25] VITALS (30 sets, daily range): BP systolic 74–150; BP diastolic 51–118
[2019-12-25] MEDS: RT-ALBUTEROL/IPRATROPIUM 3 ML (DUONEB) VIAL INH SCH ×6 (03:06→23:44)
[2019-12-25 03:30] LABS: BASOPHILS % (AUTO) 0 % (0-10); EOSINOPHILS % (AUTO) 0 % (0-10); HEMATOCRIT 40 % (40-54); HEMOGLOBIN 13.1 g/dL (13.3-17.7); LYMPHOCYTES # (AUTO) 0.4 10^3/uL (1.0-4.0); LYMPHOCYTES % (AUTO) 8 % (12-44); MEAN CORPUSCULAR HEMOGLOBIN 32 pg (25-34); MEAN CORPUSCULAR HGB CONC 33 g/dL (32-36); MEAN CORPUSCULAR VOLUME 97 fL (80-99); MEAN PLATELET VOLUME 9.7 fL (9.0-12.2); MONOCYTES # (AUTO) 0.2 10^3/uL (0.0-1.0); MONOCYTES % (AUTO) 4 % (0-12); NEUTROPHILS # (AUTO) 3.8 10^3/uL (1.8-7.8); NEUTROPHILS % (AUTO) 87 % (42-75); PLATELET COUNT 203 10^3/uL (130-400); WHITE BLOOD COUNT 4.4 10^3/uL (4.3-11.0)
[2019-12-25 03:39] LABS: CHLORIDE 107 MMOL/L (98-107); POTASSIUM 3.8 MMOL/L (3.6-5.0); SODIUM 138 MMOL/L (135-145)
[2019-12-25 03:41] LABS: CALCIUM 9.2 MG/DL (8.5-10.1); GLUCOSE 207 MG/DL (70-105)
[2019-12-25 03:43] LABS: CARBON DIOXIDE 19 MMOL/L (21-32)
[2019-12-25 03:45] LABS: CREATININE SERUM 0.91 MG/DL (0.60-1.30); GFR ESTIMATED > 60; PHOSPHORUS 2.4 MG/DL (2.3-4.7)
[2019-12-25 03:46] LABS: BUN/CREATININE RATIO 15
[2019-12-25 03:48] LABS: MAGNESIUM 2.1 MG/DL (1.6-2.4)
[2019-12-25] MEDS ORDERED: POTASSIUM CL 10MEQ/50ML IVPB 200 ML IV ONE (04:20)
[2019-12-25] MEDS ORDERED: FUROSEMIDE 40 MG/4 ML INJ (LASIX) ONE (04:20)
--- NOTE | 2019-12-25 04:21 | Pulmonary Consultation ---
History of Present Illness History of Present Illness Date Seen by Provider: Dec 25, 2019 Time Seen by Provider: 04:14 Date of Admission Reason for Visit: atrial flutter Allergies and Home Medications Allergies Coded Allergies: shellfish derived (Unverified Allergy, Severe, ANAPHYLAXIS, 02/18/19) meperidine (Unverified Allergy, Intermediate, LOW BP, N/V, 02/18/19) Home Medications Albuterol Sulfate 1 Puff Puff, 2 PUFF INH Q4H PRN for SHORTNESS OF BREATH, (Reported) 1 PUFF = 90 MCG Apixaban 5 Mg Tablet, 5 MG PO BID, (Reported) Diltiazem HCl 180 Mg Cap.er.24h, 180 MG PO DAILY, (Reported) Fluticasone/Salmeterol 1 Each Blst.w.dev, 1 EACH IH Q12H, (Reported) Gemfibrozil 600 Mg Tablet, 600 MG PO BID, (Reported) Lisinopril 20 Mg Tablet, 20 MG PO BID, (Reported) Melatonin 3 Mg Tablet, 6-9 MG PO HS PRN for SLEEP, (Reported) TAKES 2 (3MG) TABLETS Montelukast Sodium 10 Mg Tablet, 10 MG PO DAILY, (Reported) Omeprazole 40 Mg Capsule.dr, 40 MG PO HS, (Reported) Pravastatin Sodium 20 Mg Tablet, 20 MG PO DAILY, (Reported) Sildenafil Citrate 20 Mg Tablet, 50 MG PO DAILY PRN for ED, (Reported) TAKES 2 & 1/2 (20MG) TABLETS Sotalol HCl 80 Mg Tablet, 80 MG PO BID, (Reported) Tamsulosin HCl 0.4 Mg Cap, 0.4 MG PO DAILY, (Reported) Testosterone Cypionate 200 Mg/1 Ml Vial, 200 MG INJ EVERY 2 WEEKS, (Reported) Tiotropium [place] 4 Gm Mist.inhal, 2 PUFF IH DAILY, (Reported) Tramadol HCl 50 Mg Tablet, 50-100 MG PO QID PRN for PAIN-MODERATE, (Reported) Past Eioheej-Ndpbpv-Istbod Hx Past Med/Social Hx: Reviewed Nursing Past Med/Soc Hx Patient Social History Alcohol Use: Denies Use Recreational Drug Use: No Smoking Status: Former Smoker Type Used: Cigarettes Former Smoker, Quit: Feb 19, 2004 2nd Hand Smoke Exposure: Yes Recent Foreign Travel: No Contact w/Someone Who Travel: No Recent Infectious Disease Expo: No Recent Hopitalizations: No Immunizations Up To Date Tetanus Booster (TDap): Unknown Date of Pneumonia Vaccine: Apr 17, 2016 Date of Influenza Vaccine: Nov 10, 2019 Seasonal Allergies Seasonal Allergies: No Past Medical History Surgeries: Yes (EP PROCEDURE WITH ABLATION) Joint Replacement Respiratory: Yes (O2 DEPENDENT) Sleep Apnea, Emphysema Currently Using CPAP: Yes Currently Using BIPAP: No Cardiac: Yes (MITRAL VALVE REPAIR) Atrial Fibrillation, Hypertension, Valvular Heart Disease Neurological: No Headaches /Migraines Reproductive Disorders: No Sexually Transmitted Disease: No HIV/AIDS: No Genitourinary: No Kidney Stones Gastrointestinal: Yes Gastroesophageal Reflux, Hiatal Hernia Musculoskeletal: Yes (LEFT KNEE DJD, SPINAL STENOSIS, RESTLESS LEG SYNDROME) Arthritis, Fibromyalgia, Chronic Back Pain Endocrine: Yes (DIET CONTROLLED DIABETES) Diabetes, Non-Insulin dep HEENT: Yes (GLASSES, DENTURES) Cataract Loss of Vision: Denies Hearing Impairment: Hard of Hearing, Bilateral Hearing Aide Cancer: Yes Skin Did You Recieve Any Treatments: Yes What Type of Treatment Did You: Surgical Intervention Psychosocial: No Integumentary: No Blood Disorders: No Adverse Reaction/Blood Tranf: No (N/A) Family Medical History Cancer Review of Systems Time Seen by Provider: 04:19 Sepsis Event Evaluation Height, Weight, BMI Height: 5'11.00" Weight: 251lbs. 0.8oz. 112.020298mc; 33.19 BMI Method:Stated Exam Exam Vital Signs Date Time Temp Pulse Resp B/P (MAP) Pulse Ox O2 Delivery O2 Flow Rate FiO2 12/25/19 03:41 37.0 NIV CPAP 8.00 12/25/19 03:07 133 22 96 15.00 12/25/19 03:00 133 21 128/105 (113) 95 NIV CPAP 13.00 12/25/19 02:00 133 22 120/96 (104) 95 NIV CPAP 13.00 12/25/19 01:39 NIV CPAP 13.00 12/25/19 01:00 135 12/25/19 01:00 135 22 115/96 (102) 100 NIV CPAP 15.00 12/25/19 00:00 137 19 114/92 (99) 97 NIV CPAP 15.00 12/24/19 23:51 137 19 99 15.00 12/24/19 23:45 NIV CPAP 15.00 12/24/19 23:44 36.8 12/24/19 23:00 135 33 112/80 (91) 94 NIV CPAP 15.00 12/24/19 22:00 135 26 129/92 (104) 92 NIV CPAP 15.00 12/24/19 21:00 NIV CPAP 15.00 12/24/19 21:00 137 138/115 (123) 91 NIV CPAP 15.00 12/24/19 20:25 NIV CPAP 15.00 12/24/19 20:23 NIV CPAP 15.00 12/24/19 20:00 36.8 12/24/19 20:00 140 138/88 (105) 97 NIV CPAP 15.00 12/24/19 19:57 37.0 12/24/19 19:00 141 21 137/109 (118) 92 NIV CPAP 15.00 12/24/19 19:00 138 12/24/19 18:51 136 24 96 15.00 12/24/19 16:06 NIV CPAP 15.00 12/24/19 16:05 37.8 12/24/19 16:00 37.8 97 12/24/19 16:00 137 17 156/115 (129) NIV CPAP 15.00 12/24/19 13:43 140 28 97 50.00 12/24/19 13:00 140 14 150/113 (125) 92 Vapotherm 35.00 80.00 12/24/19 12:47 140 12/24/19 12:00 Vapotherm 35.00 80 12/24/19 12:00 140 17 136/106 (116) 93 Vapotherm 35.00 80.00 12/24/19 11:34 37.4 140 30 125/101 (109) 94 Vapotherm 35.00 80.00 12/24/19 10:39 130 12/24/19 10:27 94 Vapotherm 35.00 80 12/24/19 09:00 High Flow N/C 15.00 12/24/19 08:00 Vapotherm 35.00 80 12/24/19 07:47 97 Vapotherm 35.00 80 12/24/19 07:45 36.9 138 20 143/104 (117) 93 Vapotherm 35.00 80.00 12/24/19 07:00 138 12/24/19 06:52 Vapotherm 25.00 60.00 I & O 12/25/19 07:00 Intake Total 1125 ml Output Total 550 ml Balance 575 ml Height & Weight Height: 5'11.00" Weight: 251lbs. 0.8oz. 112.314060ai; 33.19 BMI Method:Stated General Appearance: Mild Distress (on vapotherm) HEENT: Pharyngeal Erythema Neck: Supple Respiratory: Lungs Clear, Decreased Breath Sounds Cardiovascular: Systolic Murmur, Irregularly Irregular Capillary Refill: Less Than 3 Seconds Peripheral Pulses: 2+ Radial Pulses (R), 2+ Radial Pulses (L) Gastrointestinal: normal bowel sounds, non tender Extremity: Non Tender, No Calf Tenderness, No Pedal Edema Neurologic/Psychiatric: Alert, Oriented x3 Skin: Warm/Dry Lymphatic: No Adenopathy Results Lab Laboratory Tests 12/23/19 14:05 12/24/19 03:00 12/25/19 03:07 Assessment/Plan Assessment/Plan Acute respiratory failure -Trial to Vapotherm today -Currently on CPAP -Give 40mg of Lasix x 1 now Acute Bilateral pneumonia -Continue Azithromycin and Zosyn COPDAE -Continue Solumedrol -Continue breathing treatments Afib -Cardizem gtt -Plan is for Cardizem gtt Admission Diagnosis Admission Status: Inpatient Order (span 2 midnights) Reason for Inpatient Admission: Will require at least 48hrs IV antibiotics as well as IV cardizem Clinical Quality Measures SCOT HARVEY DO Dec 25, 2019 04:21
[2019-12-25] MEDS: FUROSEMIDE 40 MG/4 ML INJ (LASIX) IVP SCH (04:30)
[2019-12-25] MEDS: POTASSIUM CL 10MEQ/50ML IVPB 50 ML IV SCH ×4 (04:30→07:41)
[2019-12-25] MEDS: PIPERACILLIN/TAZOBACTAM (BULK) 4.5 GM in NS (IVPB) 100 ML IV SCH ×3 (04:31→20:01)
[2019-12-25] MEDS: methylPREDNISolone 125 MG (Solu-MEDROL) VIAL IVP SCH ×4 (05:19→23:29)
[2019-12-25] MEDS: ADVAIR HFA 115/21 MCG INHALER 8 GM IH SCH ×2 (07:36→20:13)
[2019-12-25] MEDS: SOTALOL 80 MG (BETAPACE) TAB PO SCH ×2 (07:52→19:38)
[2019-12-25] MEDS: APIXABAN 5 MG (ELIQUIS) TABLET PO SCH ×2 (07:52→20:01)
--- NOTE | 2019-12-25 08:25 | Diagnostic Imaging Report ---
INDICATION: Respiratory failure. Time of exam 3:51 AM Correlation is made with prior chest from one day earlier. Changes of median sternotomy are noted. The heart remains enlarged. Extensive bilateral infiltrates persist and show no real change. No significant effusion is seen. No pneumothorax. IMPRESSION: No significant change in bilateral infiltrates when compared to exam one day earlier. Dictated by: Dictated on workstation # [id number]
--- NOTE | 2019-12-25 08:31 | Progress Note ---
Subjective Date Seen by a Provider: Dec 25, 2019 Time Seen by a Provider: 08:26 Subjective/Events-last exam Fwup acute respiratory failure, bilateral pneumonia, atrial fibrillation/atrial flutter with RVR, COPD exacerbation, HTN. On CPAP. Sitting up in bed and in good spirits. Focused Exam Lactate Level 12/23/19 14:05: Lactic Acid Level 1.32 Time of Focused Exam: 15:39 Objective Exam Vital Signs Date Time Temp Pulse Resp B/P (MAP) Pulse Ox O2 Delivery O2 Flow Rate FiO2 12/25/19 08:00 137 13 135/118 (124) 98 NIV CPAP 5.00 12/25/19 07:40 36.9 12/25/19 07:37 88 NIV CPAP 8.00 12/25/19 07:00 137 12/25/19 07:00 138 13 125/108 (114) 96 NIV CPAP 5.00 12/25/19 06:00 135 16 128/111 (117) 96 NIV CPAP 5.00 12/25/19 05:00 137 17 101/82 (88) 96 NIV CPAP 5.00 12/25/19 04:49 NIV CPAP 5.00 12/25/19 04:00 134 18 127/93 (104) 97 NIV CPAP 8.00 12/25/19 04:00 NIV CPAP 15.00 12/25/19 03:41 37.0 NIV CPAP 8.00 12/25/19 03:07 133 22 96 15.00 12/25/19 03:00 133 21 128/105 (113) 95 NIV CPAP 13.00 12/25/19 02:00 133 22 120/96 (104) 95 NIV CPAP 13.00 12/25/19 01:39 NIV CPAP 13.00 12/25/19 01:00 135 12/25/19 01:00 135 22 115/96 (102) 100 NIV CPAP 15.00 12/25/19 00:00 137 19 114/92 (99) 97 NIV CPAP 15.00 12/24/19 23:51 137 19 99 15.00 12/24/19 23:45 NIV CPAP 15.00 12/24/19 23:44 36.8 12/24/19 23:00 135 33 112/80 (91) 94 NIV CPAP 15.00 12/24/19 22:00 135 26 129/92 (104) 92 NIV CPAP 15.00 12/24/19 21:00 NIV CPAP 15.00 12/24/19 21:00 137 138/115 (123) 91 NIV CPAP 15.00 12/24/19 20:25 NIV CPAP 15.00 12/24/19 20:23 NIV CPAP 15.00 12/24/19 20:00 36.8 12/24/19 20:00 140 138/88 (105) 97 NIV CPAP 15.00 12/24/19 19:57 37.0 12/24/19 19:00 141 21 137/109 (118) 92 NIV CPAP 15.00 12/24/19 19:00 138 12/24/19 18:51 136 24 96 15.00 12/24/19 16:06 NIV CPAP 15.00 12/24/19 16:05 37.8 12/24/19 16:00 37.8 97 12/24/19 16:00 137 17 156/115 (129) NIV CPAP 15.00 12/24/19 13:43 140 28 97 50.00 12/24/19 13:00 140 14 150/113 (125) 92 Vapotherm 35.00 80.00 12/24/19 12:47 140 12/24/19 12:00 Vapotherm 35.00 80 12/24/19 12:00 140 17 136/106 (116) 93 Vapotherm 35.00 80.00 12/24/19 11:34 37.4 140 30 125/101 (109) 94 Vapotherm 35.00 80.00 12/24/19 10:39 130 12/24/19 10:27 94 Vapotherm 35.00 80 12/24/19 09:00 High Flow N/C 15.00 I & O 12/25/19 07:00 Intake Total 1125 ml Output Total 1500 ml Balance -375 ml Capillary Refill : Less Than 3 Seconds General Appearance: No Apparent Distress Neck: Supple Respiratory: Crackles (right base), Decreased Breath Sounds Cardiovascular: Systolic Murmur, Gallop/S4, Irregularly Irregular Gastrointestinal: normal bowel sounds, non tender, soft Extremity: Non Tender, No Calf Tenderness, Pedal Edema (1 plus) Neurologic/Psychiatric: Alert, Oriented x3 Skin: Warm/Dry Results Lab Laboratory Tests 12/25/19 03:07: White Blood Count 4.4, Red Blood Count 4.14L, Hemoglobin 13.1L, Hematocrit 40, Mean Corpuscular Volume 97, Mean Corpuscular Hemoglobin 32, Mean Corpuscular Hemoglobin Concent 33, Red Cell Distribution Width 15.9H, Platelet Count 203, Mean Platelet Volume 9.7, Immature Granulocyte % (Auto) 1, Neutrophils (%) (Auto) 87H, Lymphocytes (%) (Auto) 8L, Monocytes (%) (Auto) 4, Eosinophils (%) (Auto) 0, Basophils (%) (Auto) 0, Neutrophils # (Auto) 3.8, Lymphocytes # (Auto) 0.4L, Monocytes # (Auto) 0.2, Eosinophils # (Auto) 0.0, Basophils # (Auto) 0.0, Immature Granulocyte # (Auto) 0.0, Sodium Level 138, Potassium Level 3.8, Chloride Level 107, Carbon Dioxide Level 19L, Anion Gap 12, Blood Urea Nitrogen 14, Creatinine 0.91, Estimat Glomerular Filtration Rate > 60, BUN/Creatinine Ratio 15, Glucose Level 207H, Calcium Level 9.2, Phosphorus Level 2.4, Magnesium Level 2.1, B-Type Natriuretic Peptide 769.9H, Procalcitonin 0.08 Microbiology 12/23/19 Urine Culture - Final, Complete NO GROWTH 12/23/19 Gram Stain - Final, Resulted 12/23/19 Sputum Culture - Preliminary, Resulted Usual upper respiratory tristan 12/23/19 Blood Culture - Preliminary, Resulted No growth Assessment/Plan Assessment/Plan Assess & Plan/Chief Complaint 1. Acute Respiratory Failure--on CPAP 2. Bilateral Pneumonia--continue zosyn/zithromax 3. Atrial Fibrillation/A Fib with RVR--cardioversion today 4. COPD Exacerbation--on IV solumedrol, SVNs, home inhalers restarted 5. Acute on Chronic Diastolic CHF--diuresed well with IV lasix yesterday, repeat lasix this morning Clinical Quality Measures Admission Status Admission Dx 1. Acute Respiratory Failure--admitted on BIPAP, now on Vapotherm at 80% 2. Acute COPD exacerbation--add IV solumedrol 3. Atrial Fibrillation/Atrial Flutter--on cardizem drip and Eliquis with plan for cardioversion tomorrow 4. Acute Bilateral Pneumonia--on Zosyn and zithromax DVT/VTE Risk/Contraindication: Risk Factor Score Per Nursin RFS Level Per Nursing on Admit: 4+=Very High AUBREE GALVAN DO Dec 25, 2019 08:31
[2019-12-25] MEDS ORDERED: MIDAZOLAM 2 MG/2 ML (VERSED) VIAL ONE (08:45)
[2019-12-25] MEDS ORDERED: proPOfol 200 MG/20 ML (DIPRIVAN) VIAL IV ONE ×2 (08:45→09:19)
[2019-12-25] MEDS ORDERED: AMIODARONE (BOLUS) 150 MG/3 ML IV ONE (09:20)
[2019-12-25] MEDS ORDERED: NS (IVPB) 100 ML ONE (09:21)
[2019-12-25] MEDS ORDERED: AMIODARONE INJECTION 150 MG in D5W 100 ML IVPB 100 ML IV NR (09:30)
[2019-12-25] MEDS ORDERED: SOTALOL 80 MG (BETAPACE) TAB PO ONE (09:30)
--- NOTE | 2019-12-25 10:05 | Anesthesia-General Post-Op ---
MAC Patient Condition Mental Status/LOC: Same as Preop Cardiovascular: Satisfactory Nausea/Vomiting: Absent Respiratory: Satisfactory Pain: Controlled Complications: Absent Post Op Complications Complications None Follow Up Care/Instructions Patient Instructions None needed. Anesthesiology Discharge Order Discharge Order Patient is doing well, no complaints, stable vital signs, no apparent adverse anesthesia problems. No complications reported per nursing. LULU ARGUELLO CRNA Dec 25, 2019 10:05
--- NOTE | 2019-12-25 10:13 | Cardiac Procedure Note-CS/ASA ---
Pre-Procedure Note Pre-Op Procedure Note H&P Reviewed The H&P was reviewed, patient examined and no changes noted. Date H&P Reviewed: Dec 25, 2019 Time H&P Reviewed: 09:00 Conscious Sedation Pre-Proced Time 09:00 ASA Score 3 For ASA 3 and 4: Consider anesthesia and medical clearance. Also, for patients with a history of failed moderate sedation consider anesthesia. Airway Lungs Heart ASA score ASA 1: a normal healthy patient ASA 2: a patient with a mild systemic disease (mid diabetes, controlled hypertension, obesity x ASA 3: a patient with a severe systemic disease that limits activity (angina, COPD, prior Myocardial infarction) ASA 4: a patient with an incapacitating disease that is a constant threat to life (CHF, renal failure) ASA 5: a moribund patient not expected to survive 24 hrs. (ruptured aneurysm) ASA 6: a declared brain- patient whose organs are being harvested. For emergent operations, add the letter E after the classification Mallampati Classification Grade 3 Sedation Plan Analgesia, Amnesia, Plan communicated to team members, Discussed options with patient/fam, Discussed risks with patient/fam The patient is an appropriate candidate to undergo the planned procedure, sedation, and anesthesia. The patient immediately re-assessed prior to indication. MIRLANDE COOPER MD Dec 25, 2019 10:13 am
--- NOTE | 2019-12-25 10:14 | Cardioversion ---
Cardioversion PROCEDURE PHYSICIAN: Mirlande Nur DATE OF PROCEDURE: 12/25/19 DIRECT EXTERNAL ELECTRICAL CARDIOVERSION: Indications: Atrial flutter with rapid ventricular response Preoperative diagnoses: Atrial flutter with rapid ventricular response Postoperative diagnosis: Sinus rhythm, Successful Electrical Cardioversion History: Anesthesia: By Anesthesia services Complications: None Specimen: None Contrast: 0 Flouroscopy: none Procedure Details: The patient was brought the vp lab after informed consent was taken, all the risks and complications were explained including the risk of stroke. Electrical cardioversion was carried out with anesthesia support with propofol. 120 joules of synchronized shock was delivered through external patches which promptly restored sinus rhythm. The patient tolerated the procedure well. Conclusions: Successful electrical cardioversion in terminating atrial flutter MIRLANDE NRU MD Dec 25, 2019 10:13 am
--- NOTE | 2019-12-25 10:17 | Cardiology Progress Note ---
Subjective Date Seen by Provider: Dec 25, 2019 Time Seen by Provider: 10:14 Subjective/Events-last exam Patient is laying down in bed, using C Pap, healing better, he feeling better Review of Systems General: No Chills, No Night Sweats; Fatigue, Malaise; No Appetite, No Other HEENT: No Head Aches, No Visual Changes, No Eye Pain, No Ear Pain, No Dysphasia, No Sinus Congestion, No Post Nasal Drip, No Sore Throat, No Other Pulmonary: Dyspnea; No Cough, No Pleuritic Chest Pain, No Other Cardiovascular: No: Chest Pain, Palpitations, Orthopnea, Paroxysmal Noc. Dyspnea, Edema, Lt Headedness, Other Focused Exam Lactate Level 12/23/19 14:05: Lactic Acid Level 1.32 Objective-Cardiology Exam Last Set of Vital Signs Vital Signs 12/24/19 12/25/19 12/25/19 12:00 07:40 10:00 Temp 36.9 Pulse 75 Resp 22 B/P (MAP) 109/82 (91) Pulse Ox 94 O2 Delivery NIV CPAP O2 Flow Rate 5.00 FiO2 80 Capillary Refill : Less Than 3 Seconds I&O Intake and Output 12/25/19 00:00 Intake Total 1430 ml Output Total 1000 ml Balance 430 ml Intake Oral 1175 ml IV Total 255 ml Output Urine Total 1000 ml # Voids 4 # Bowel Movements 2 General: Alert, Oriented X3, Cooperative HEENT: Atraumatic, PERRLA Neck: Supple, No JVD, No Thyromegaly Lungs: Normal Air Movement, Other (bilateral rhonchi) Heart: Regular Rate, Normal S1, Normal S2, Other (systolic murmur) Abdomen: Normal Bowel Sounds, Soft, No Tenderness, No Hepatosplenomegaly, No Masses Extremities: No Clubbing, No Cyanosis, No Edema, Normal Pulses, No Tenderness/Swelling Skin: No Rashes, No Breakdown, No Significant Lesion Neuro: Normal Gait, Normal Speech, Strength at 5/5 X4 Ext, Normal Tone, Sensation Intact Psych/Mental Status: Mental Status NL, Mood NL Results Lab Laboratory Tests 12/25/19 03:07 A/P-Cardiology Admission Diagnosis Acute respiratory failure Paroxysmal atrial flutter Pneumonia Hyperlipidemia Assessment/Plan Shortness of breath, acute on chronic respiratory failure, improving slowly. Bilateral pneumonia, receiving antibiotics, managed by Dr. Renetta Paroxysmal atrial fibrillation/flutter, had ablation done with Dr. Pratt in April 2019. Currently on diltiazem and sotalol, back in atrial flutter with rapid ventricular response, maintained on oral anticoagulation and assured me that he did not miss any doses of anticoagulation. Patient could not tolerate Cardizem drip due to hypotension. Electrical cardioversion was delivered and it was successful in terminating atrial flutter. Patient had another breakthrough atrial flutter with a heart rate 170 returned to sinus. I given one bolus of amiodarone 150 and will increase sotalol to 120 mg twice a day and continue to monitor EKG for QT prolongation. Chest pain, nonspecific etiology, Stress test done July 2018 revealed no ischemia or infarct. Probably secondary to hypoxemia and tachycardia, underlying coronary artery disease cannot be excluded, Cardec enzymes were negative. History of mitral valve repair with annuloplasty ring [place] [address] Dean, has been asymptomatic, last echocardiogram was done in November 2018 showing ejection fraction 55-65 percent, left atrium 5.4 cm, the mitral valve has some deterioration compared to the previous study. [id number] score is 3, yearly risk of stroke without oral anticoagulation is 3.2 percent. Maintained on Eliquis. Continue to monitor. Transient episode of nonsustained ventricular tachycardia occurred in the preoperative area in [facility] on November 01, 2014, evaluated by his own correspondence clerk with Dr. Ibrahim at [facility], had ablation with Dr Pratt in April 2019, continue on sotalol for now and monitor Hypertension, monitor blood pressure while on diltiazem drip and oral in addition to sotalol Hyperlipidemia, continue to monitor lipids Hemochromatosis- followed by Dr. Lynn. History of heart catheterization done in 2009 and reported to have no si gnificant obstructive disease in his coronaries, continue to monitor no changes are recommended History of syncope after the heart catheterization of unknown etiology. Diabetes mellitus, controlled by diet, followed and managed by primary care physician COPD/Obstructive sleep apnea use C Pap at night, followed and managed by Dr. Jackson Sjagustín syndrome, fibromyalgia, spinal stenosis, osteoporosis, osteoarthritis, left elbow ulnar nerve release, carpal tunnel release, bilateral inguinal hernia repair MIRLANDE COOPER MD Dec 25, 2019 10:17 am
[2019-12-25] MEDS: dilTIAZem DRIP PRE-MIX 125 ML IV SCH (11:38)
[2019-12-25] MEDS: AZITHROMYCIN INJECTION 500 MG in NS (IVPB) 250 ML IV SCH (17:16)
[2019-12-25] MEDS: TAMSULOSIN 0.4 MG (FLOMAX) CAP PO SCH (17:17)
--- NOTE | 2019-12-25 19:39 | NUR ---
NOTIFIED DR COOPER OF PT SUSTAINED HR IN 160'S- SBP 80'S-90'S, PT DOES NOT COMPLAIN OF LIGHT HEADEDNESS, CP OR NEW SOB-PT STATES HE DOES FEEL WEAKER. ORDERS FOR 500CC BOLUS.
--- NOTE | 2019-12-25 19:59 | NUR ---
DR COOPER NOTIFIED OF EKG RESULTS PRIOR TO ADMIN OF INCREASED DOSE OF SOTALOL
[2019-12-26] VITALS (27 sets, daily range): BP systolic 101–140; BP diastolic 63–114
[2019-12-26] MEDS: RT-ALBUTEROL/IPRATROPIUM 3 ML (DUONEB) VIAL INH SCH ×6 (02:50→21:08)
[2019-12-26 03:25] LABS: BASOPHILS % (AUTO) 0 % (0-10); EOSINOPHILS % (AUTO) 0 % (0-10); HEMATOCRIT 39 % (40-54); HEMOGLOBIN 12.5 g/dL (13.3-17.7); LYMPHOCYTES # (AUTO) 0.5 10^3/uL (1.0-4.0); LYMPHOCYTES % (AUTO) 6 % (12-44); MEAN CORPUSCULAR HEMOGLOBIN 32 pg (25-34); MEAN CORPUSCULAR HGB CONC 32 g/dL (32-36); MEAN CORPUSCULAR VOLUME 98 fL (80-99); MEAN PLATELET VOLUME 9.7 fL (9.0-12.2); MONOCYTES # (AUTO) 0.5 10^3/uL (0.0-1.0); MONOCYTES % (AUTO) 6 % (0-12); NEUTROPHILS # (AUTO) 7.9 10^3/uL (1.8-7.8); NEUTROPHILS % (AUTO) 88 % (42-75); PLATELET COUNT 215 10^3/uL (130-400)
--- NOTE | 2019-12-26 03:34 | NUR ---
DR COOPER REQUESTED PT BE NPO AT MIDNIGHT. PT AWARE OF THIS AT MIDNIGHT AND COMPLIANT. PT REQUESTING DRINK AT THIS TIME FOR HIS THROAT AND COUGH. THIS RN EDUCATED PT ON NPO STATUS. THERAPEUTIC COMMUNICATION ATTEMPTED. 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
[2019-12-26] MEDS: LACTATED RINGERS 1,000 ML IV SCH (03:42)
[2019-12-26 03:44] LABS: CHLORIDE 106 MMOL/L (98-107); POTASSIUM 4.1 MMOL/L (3.6-5.0); SODIUM 138 MMOL/L (135-145)
[2019-12-26 03:46] LABS: CALCIUM 9.4 MG/DL (8.5-10.1); GLUCOSE 130 MG/DL (70-105)
[2019-12-26 03:47] LABS: BAND NEUTROPHILS 3 %; LYMPHOCYTES % (MANUAL) 3 %; MONOCYTES % (MANUAL) 6 %; NEUTROPHILS % (MANUAL) 88 %; RBC MORPH NORMAL
[2019-12-26 03:48] LABS: CARBON DIOXIDE 19 MMOL/L (21-32)
[2019-12-26 03:50] LABS: CREATININE SERUM 0.98 MG/DL (0.60-1.30); GFR ESTIMATED > 60; PHOSPHORUS 3.4 MG/DL (2.3-4.7)
[2019-12-26 03:51] LABS: BUN/CREATININE RATIO 23
[2019-12-26 03:52] LABS: MAGNESIUM 2.3 MG/DL (1.6-2.4)
--- NOTE | 2019-12-26 05:31 | Pulmonary Progress Note ---
Subjective Time Seen by a Provider: 05:27 Sepsis Event Evaluation Height, Weight, BMI Height: 5'11.00" Weight: 251lbs. 0.8oz. 112.757751xc; 33.19 BMI Method:Stated Focused Exam Lactate Level 12/23/19 14:05: Lactic Acid Level 1.32 Time of Focused Exam: 15:39 Exam Exam Vital Signs Date Time Temp Pulse Resp B/P (MAP) Pulse Ox O2 Delivery O2 Flow Rate FiO2 12/26/19 04:11 Vapotherm 25.00 60 12/26/19 03:00 73 110/81 (91) 97 Vapotherm 25.00 60.00 12/26/19 02:50 Vapotherm 25.00 60 12/26/19 02:00 69 119/91 (100) 98 Vapotherm 25.00 60.00 12/26/19 01:00 70 12/26/19 01:00 70 113/81 (92) 97 Vapotherm 25.00 60.00 12/26/19 00:19 Vapotherm 25.00 60 12/26/19 00:00 73 16 118/84 (95) 91 Vapotherm 25.00 60.00 12/25/19 23:44 Vapotherm 25.00 60 12/25/19 23:00 73 11 104/76 (85) 95 Vapotherm 25.00 60.00 12/25/19 22:00 73 22 117/82 (94) 92 Vapotherm 25.00 60.00 12/25/19 21:15 70 33 108/80 (89) 93 Vapotherm 25.00 60.00 12/25/19 21:00 161 26 83/70 (74) 96 Vapotherm 25.00 60.00 12/25/19 20:10 97 Vapotherm 30.00 60 12/25/19 20:10 Vapotherm 25.00 60 12/25/19 20:09 Vapotherm 25.00 60 12/25/19 20:08 36.8 Vapotherm 25.00 60.00 12/25/19 20:00 75 109/74 (86) 94 Vapotherm 30.00 60.00 12/25/19 19:00 76 23 117/66 (83) 96 Vapotherm 30.00 60.00 12/25/19 19:00 76 12/25/19 18:00 79 28 121/62 (81) 92 Vapotherm 30.00 60.00 12/25/19 17:39 Vapotherm 30.00 60.00 12/25/19 17:00 77 24 123/79 (94) 94 NIV Bilevel 10.00 12/25/19 16:00 73 18 99/70 (80) 95 NIV Bilevel 10.00 12/25/19 16:00 Vapotherm 35.00 75 12/25/19 15:00 72 15 108/72 (84) 95 NIV Bilevel 10.00 12/25/19 14:28 94 Vapotherm 35.00 75 12/25/19 14:00 77 24 109/76 (87) 98 NIV Bilevel 10.00 12/25/19 13:00 73 12/25/19 13:00 76 23 104/77 (86) 98 NIV Bilevel 10.00 12/25/19 12:00 78 32 92/74 (80) 98 NIV Bilevel 10.00 12/25/19 11:12 96 NIV CPAP 6.00 12/25/19 11:00 75 70 127/83 (98) 98 NIV Bilevel 10.00 12/25/19 10:45 78 19 97 NIV Bilevel 10.00 12/25/19 10:30 122/86 (100) NIV Bilevel 10.00 12/25/19 10:15 77 24 97 NIV Bilevel 10.00 12/25/19 10:00 75 12/25/19 10:00 75 22 109/82 (91) 94 NIV Bilevel 10.00 12/25/19 10:00 77 23 109/82 (92) 98 NIV Bilevel 10.00 12/25/19 09:45 81 77 94 NIV Bilevel 10.00 12/25/19 09:44 81 12/25/19 09:34 80 26 97/76 (84) 89 NIV Bilevel 10.00 12/25/19 09:30 81 25 74/51 (58) 92 NIV Bilevel 10.00 12/25/19 09:15 74 29 144/103 (119) 92 NIV Bilevel 10.00 12/25/19 09:03 81 20 150/112 (124) 95 NIV Bilevel 10.00 12/25/19 09:00 NIV CPAP 8.00 12/25/19 09:00 137 17 137/107 (122) 91 NIV Bilevel 10.00 12/25/19 09:00 137 21 144/103 (117) 93 NIV Bilevel 10.00 12/25/19 08:00 NIV CPAP 8.00 12/25/19 08:00 137 13 135/118 (124) 98 NIV Bilevel 10.00 12/25/19 07:40 36.9 12/25/19 07:38 93 NIV Bilevel 10.00 12/25/19 07:37 88 NIV CPAP 8.00 12/25/19 07:00 137 12/25/19 07:00 138 13 125/108 (114) 96 NIV CPAP 5.00 12/25/19 06:00 135 16 128/111 (117) 96 NIV CPAP 5.00 I & O 12/26/19 07:00 Intake Total 780 ml Output Total 2050 ml Balance -1270 ml Height & Weight Height: 5'11.00" Weight: 251lbs. 0.8oz. 112.695493ch; 33.19 BMI Method:Stated General Appearance: No Apparent Distress HEENT: Pharyngeal Erythema Neck: Supple Respiratory: Crackles (right base), Decreased Breath Sounds Cardiovascular: Systolic Murmur, Gallop/S4, Irregularly Irregular Capillary Refill: Less Than 3 Seconds Peripheral Pulses: 2+ Radial Pulses (R), 2+ Radial Pulses (L) Gastrointestinal: normal bowel sounds, non tender, soft Extremity: Non Tender, No Calf Tenderness, Pedal Edema (1 plus) Neurologic/Psychiatric: Alert, Oriented x3 Skin: Warm/Dry Lymphatic: No Adenopathy Results Lab Laboratory Tests 12/25/19 03:07 12/26/19 02:55 Assessment/Plan Assessment/Plan Acute respiratory failure -Trial to Vapotherm today -Titrate oxygen down -Currently on Vapotherm -Continue Lasix Acute Bilateral pneumonia -Azithromycin and Zosyn COPDAE -Continue Solumedrol -Continue breathing treatments Afib -Cardiology following SCOT HARVEY DO Dec 26, 2019 05:31
[2019-12-26] MEDS: methylPREDNISolone 125 MG (Solu-MEDROL) VIAL IVP SCH ×3 (05:38→20:47)
[2019-12-26] MEDS: PIPERACILLIN/TAZOBACTAM (BULK) 4.5 GM in NS (IVPB) 100 ML IV SCH ×3 (05:38→20:49)
[2019-12-26] MEDS: ADVAIR HFA 115/21 MCG INHALER 8 GM IH SCH ×2 (07:40→18:13)
[2019-12-26] MEDS: FUROSEMIDE 40 MG/4 ML INJ (LASIX) IVP SCH (08:02)
[2019-12-26] MEDS: APIXABAN 5 MG (ELIQUIS) TABLET PO SCH ×2 (08:03→20:47)
[2019-12-26] MEDS: SOTALOL 80 MG (BETAPACE) TAB PO SCH (08:03)
--- NOTE | 2019-12-26 08:27 | Diagnostic Imaging Report ---
INDICATION: Respiratory failure. COMPARISON: 12/25/2019. TECHNIQUE: Single radiograph of the chest dated 12/26/2019. FINDINGS: Post surgical changes of a CABG and prosthetic cardiac valve are again identified with associated loop recorder overlying left chest. The cardiac silhouette is enlarged, though stable. No significant pulmonary vascular congestion. Extensive bilateral pulmonary infiltrates are again noted, right greater than left. These appear very minimally improved within the right upper lung. No significant pleural effusion. No pneumothorax. No acute osseous abnormality. IMPRESSION: Minimally improved extensive bilateral pulmonary infiltrates. Persistent enlargement of cardiac silhouette. Dictated by: Dictated on workstation # [id number]
--- NOTE | 2019-12-26 08:46 | Progress Note ---
Subjective Subjective Date Seen by Provider: Dec 26, 2019 Time Seen by Provider: 08:55 Review of Systems General: No Chills, No Night Sweats; Fatigue, Malaise; No Appetite, No Other HEENT: No Head Aches, No Visual Changes, No Eye Pain, No Ear Pain, No Dysphasia , No Sinus Congestion, No Post Nasal Drip, No Sore Throat, No Other Pulmonary: Dyspnea; No Cough, No Pleuritic Chest Pain, No Other Cardiovascular: No: Chest Pain, Palpitations, Orthopnea, Paroxysmal Noc. Dyspnea, Edema, Lt Headedness, Other All Other Systems Reviewed All Other Systems Reviewed: Yes Objective Exam Vital Signs Vital Signs - First Documented 12/23/19 12/23/19 12/23/19 13:40 13:42 20:21 Temp 35.4 Pulse 106 Resp 26 B/P (MAP) 121/89 (100) Pulse Ox 86 O2 Delivery Room Air O2 Flow Rate 15.00 FiO2 40 Capillary Refill : Less Than 3 Seconds General Appearance: No Apparent Distress Eyes: Bilateral Eye Normal Inspection, Bilateral Eye PERRL, Bilateral Eye EOMI HEENT: Pharyngeal Erythema Neck: Supple Respiratory: Crackles (right base), Decreased Breath Sounds Cardiovascular: Systolic Murmur, Gallop/S4, Irregularly Irregular Gastrointestinal: Normal Bowel Sounds, Non Tender, Soft Rectal: Deferred Back: No CVA Tenderness Extremity: Non Tender, No Calf Tenderness, Pedal Edema (1 plus) Neurologic/Psychiatric: Alert, Oriented x3 Skin: Warm/Dry Lymphatic: No Adenopathy Results Lab Laboratory Tests 12/26/19 02:55: White Blood Count 9.0, Red Blood Count 3.96L, Hemoglobin 12.5L, Hematocrit 39L, Mean Corpuscular Volume 98, Mean Corpuscular Hemoglobin 32, Mean Corpuscular Hemoglobin Concent 32, Red Cell Distribution Width 15.8H, Platelet Count 215, Mean Platelet Volume 9.7, Immature Granulocyte % (Auto) 1, Neutrophils (%) (Auto) 88H, Lymphocytes (%) (Auto) 6L, Monocytes (%) (Auto) 6, Eosinophils (%) (Auto) 0, Basophils (%) (Auto) 0, Neutrophils # (Auto) 7.9H, Lymphocytes # (Auto) 0.5L, Monocytes # (Auto) 0.5, Eosinophils # (Auto) 0.0, Basophils # (Auto) 0.0, Immature Granulocyte # (Auto) 0.1, Neutrophils % (Manual) 88, Lymphocytes % (Manual) 3, Monocytes % (Manual) 6, Band Neutrophils 3, Blood Morphology Comment NORMAL, Sodium Level 138, Potassium Level 4.1, Chloride Level 106, Carbon Dioxide Level 19L, Anion Gap 13, Blood Urea Nitrogen 23H, Creatinine 0.98, Estimat Glomerular Filtration Rate > 60, BUN/Creatinine Ratio 23, Glucose Level 130H, Calcium Level 9.4, Phosphorus Level 3.4, Magnesium Level 2.3 Microbiology 12/25/19 MRSA Screen - Final, Complete MRSA not isolated 12/23/19 Urine Culture - Final, Complete NO GROWTH 12/23/19 Blood Culture - Preliminary, Resulted No growth Assessment/Plan Assessment/Plan Admission Status: Inpatient Order (span 2 midnights) Assessment and Plan ACUTE RESPIRATORY FAILURE - IMPROVING AND PT IS OFF OF CPAP CONTINUOUSLY AND ON VAPOTHERM WITH PLANS FOR WEANING DOWN MEDICATION BILATERAL PNEUMONIA - PT ON ZOSYN AND ZITHROMAX, CONTINUE WITH CURRENT MANAGEMENT, MONITOR SERIAL CHEST XRAYS AFIB WITH RVR - PT HAS CONVERTED - DEFER TO CARDIOLOGY - COPD EXACERBATION - ON IV STEROIDS, WILL WEAN TO ORAL MEDICATION - CONTINUE WITH HOME REGIMEN ACUTE ON CHRONIC CONGESTIVE FAILURE - DUE TO AFIB - SHOULD IMPROVE HIS AFIB IMPROVES AND WITH IV LASIX. Clinical Quality Measures DVT/VTE Risk/Contraindication: Risk Factor Score Per Nursin RFS Level Per Nursing on Admit: 4+=Very High REJI GIBBS MD Dec 26, 2019 08:46
--- NOTE | 2019-12-26 09:48 | Cardiology Progress Note ---
Subjective Date Seen by Provider: Dec 26, 2019 Time Seen by Provider: 09:45 Subjective/Events-last exam Patient was seen at bedside sitting comfortably, breathing better, still on Vapotherm. Heart rate is better controlled Review of Systems General: No Chills, No Night Sweats; Fatigue; No Malaise, No Appetite, No Other HEENT: No Head Aches, No Visual Changes, No Eye Pain, No Ear Pain, No Dysphasia, No Sinus Congestion, No Post Nasal Drip, No Sore Throat, No Other Pulmonary: Dyspnea; No Cough, No Pleuritic Chest Pain, No Other Cardiovascular: No: Chest Pain, Palpitations, Orthopnea, Paroxysmal Noc. Dyspnea, Edema, Lt Headedness, Other Focused Exam Lactate Level 12/23/19 14:05: Lactic Acid Level 1.32 Time of Focused Exam: 15:39 Objective-Cardiology Exam Last Set of Vital Signs Vital Signs 12/26/19 12/26/19 12/26/19 00:00 06:00 08:09 Pulse 68 Resp 16 B/P (MAP) 129/98 (108) Pulse Ox 91 O2 Delivery Vapotherm O2 Flow Rate 15.00 FiO2 30 Capillary Refill : Less Than 3 Seconds I&O Intake and Output 12/25/19 23:59 Intake Total 780 ml Output Total 3000 ml Balance -2220 ml Intake Oral 525 ml IV Total 255 ml Output Urine Total 3000 ml # Voids 1 # Bowel Movements 1 General: Alert, Oriented X3, Cooperative HEENT: Atraumatic, PERRLA Neck: Supple, No JVD, No Thyromegaly Lungs: Normal Air Movement, Other (bilateral rhonchi) Heart: Regular Rate, Normal S1, Normal S2, Other (systolic murmur) Abdomen: Normal Bowel Sounds, Soft, No Tenderness, No Hepatosplenomegaly, No Masses Extremities: No Clubbing, No Cyanosis, No Edema, Normal Pulses, No Tenderness/Swelling Skin: No Rashes, No Breakdown, No Significant Lesion Neuro: Normal Gait, Normal Speech, Strength at 5/5 X4 Ext, Normal Tone, Sensation Intact Psych/Mental Status: Mental Status NL, Mood NL Results Lab Laboratory Tests 12/26/19 02:55 A/P-Cardiology Admission Diagnosis Acute respiratory failure Paroxysmal atrial flutter Pneumonia Hyperlipidemia Assessment/Plan Shortness of breath, acute on chronic respiratory failure, improving slowly, still on Vapotherm, managed by Dr. Jackson Bilateral pneumonia, receiving antibiotics, managed by Dr. Jackson Paroxysmal atrial fibrillation/flutter, had ablation done with Dr. Pratt in April 2019. Had episode of atrial flutter with rapid ventricular response, I did electrical cardioversion on December 25, 2019, patient went back to atrial flutter. I gave him one dose of amiodarone IV and increased the dose of sotalol to 120 mg twice a day. Today's EKG showed QTC prolongation, I will titrate the sotalol to 120 mg in the morning and 80 mg in the evening and evaluate tolerance and response Chest pain, nonspecific etiology, Stress test done July 2018 revealed no ischemia or infarct. Probably secondary to hypoxemia and tachycardia, underlying coronary artery disease cannot be excluded, heart defect enzymes were negative. Continue to monitor History of mitral valve repair with annuloplasty ring [place] [address] Dean, has been asymptomatic, last echocardiogram was done in November 2018 showing ejection fraction 55-65 percent, left atrium 5.4 cm, the mitral valve has some deterioration compared to the previous study. I will evaluate 2-D echo [id number] score is 3, yearly risk of stroke without oral anticoagulation is 3.2 percent. Maintained on Eliquis. Continue to monitor. Transient episode of nonsustained ventricular tachycardia occurred in the preoperative area in [facility] on November 01, 2014, evaluated by his own cane weigher helper with Dr. Ibrahim at [facility], had ablation with Dr Pratt in April 2019, continue on sotalol for now and monitor Hypertension, monitor blood pressure while on diltiazem drip and oral in addition to sotalol Hyperlipidemia, continue to monitor lipids Hemochromatosis- followed by Dr. Lynn. History of heart catheterization done in 2009 and reported to have no significant obstructive disease in his coronaries, continue to monitor no changes are recommended History of syncope after the heart catheterization of unknown etiology. Diabetes mellitus, controlled by diet, followed and managed by primary care physician COPD/Obstructive sleep apnea use C Pap at night, followed and managed by Dr. Jackson Sjogern syndrome, fibromyalgia, spinal stenosis, osteoporosis, osteoarthritis, left elbow ulnar nerve release, carpal tunnel release, bilateral inguinal hernia repair Clinical Quality Measures DVT/VTE Risk/Contraindication: Risk Factor Score Per Nursin RFS Level Per Nursing on Admit: 4+=Very High ALLISON,BASHAR J MD Dec 26, 2019 09:48
--- NOTE | 2019-12-26 11:30 | NUR ---
Pastoral care visit, pt pleasant with good family support, did some life review.
[2019-12-26] MEDS ORDERED: FURO20TA4 PO (11:56)
[2019-12-26] MEDS ORDERED: FLUT1BLS3 INH (11:56)
[2019-12-26] MEDS ORDERED: DILT300C52 PO (11:56)
--- NOTE | 2019-12-26 12:02 | NUR ---
SPOKE WITH THE PT (HE HAD A MED LIST THAT I ATTACHED TO HIS CHART) AND WENT THRU THE EXT MED HISTORY TO COMPLETE THE MED REC SOTALOL 80MG- DIRECTIONS ON HIS MED LIST AND THE EXT MED HISTORY SHOW 1 TAB BID HOWEVER PT SAID HE IS NOW TAKING 1 TAB DAILY LISINOPRIL 20MG IS ON THE EXT MED HISTORY AND ON THE PT MED LIST BUT ACCORDING TO THE PT HE IS NO LONGER TAKING THE ONLY INHALERS THE PT IS USING NOW ARE TRELEGY AND VENTOLIN (PREVIOUSLY HAD BEEN ON ADVAIR AND SPIRIVA) OTC MEDS: MELATONIN PRN
--- NOTE | 2019-12-26 15:25 | NUR ---
RD ASSESSMENT PMHx: COPD; DM: afib; GERD; hiatal hernia; PT INTERACTION: Pt was awake and pleasant during nutrition assessment. Pt states current appetite is terrible and has been this way for the last 2-3years. Note avg PO intake 40% x2d, per chart review. Pt states following a regular diet at home, and has no issues with chewing/swallowing food. Pt states recent issues with constipation and diarrhea. Note last BM was 12/24, and pt not currently on bowel regimen per chart review. Pt states recent 40# wt loss x6mon. Note recent 6# wt loss x4mon, per chart review. Pt states current DM management as "I don't do anything with it. I just don't eat a lot of sugar or drink a lot of soda." Note unable to determine recent HbA1c, per chart review. ABNORMAL NUTRITION-RELATED LAB VALUES LOW: HIGH: BUN 23; glu 130 Est. kcal needs: 0649-5200 kcal | 15-20 kcal/kg Est. Pro needs: 82-102 g Pro | 0.8-1.0 g Pro/kg PES STATEMENT: Inadequate oral intake (NI-2.1) related to loss of appetite, constipation, and diarrhea, as evidenced by pt interview, and avg PO intake 40% x2d. INTERVENTION: Continue with current diet order of Heart Healthy diet. Pt may benefit from consistent CHO restriction if blood glucose levels become elevated. Add Glucerna (vary) to meals TID, for increased kcal intake. Provides 220 kcal and 10 g Pro per serving. Offered diet education on DM management, but pt declined, stating again that he doesn't do anything with it. May attempt to offer again prior to discharge. Will continue to follow and reassess as pt needs, intake, and status change. Blaze Seals, MS RD LD
--- NOTE | 2019-12-26 19:53 | Physician Query Clarification ---
"Physician Query-General Query to Physician: The medical record reflects the following clinical scenario: History/Risk factors: Pneumonia, Severe Chronic illnesses Clinical Findings: HR 106 RR 26 T 35.4 CXR suggestive of pneumonia Treatment: IV fluid bolus, IV Zosyn, IV Solumedrol Question: Do you agree with the impression of Sepsis per Dr. Villatoro? If you agree, please document in Progress Notes or Discharge Summary. 1. Yes; will document Sepsis present on Admission with pneumonia in the Progress Notes 2. No; will continue to document Pneumonia in the Progress Notes 3. Other; will document explanation of clinical findings 4. Clinically undetermined; no explanation for clinical findings Please remember a lack of response to the above will prompt a phone page by CDI/coding staff. In responding to this query, please exercise your independent professional judgment. The purpose of this communication is to more accurately reflect the complexity of your patients condition. The fact that a question is asked does not imply that any particular answer is desired or expected. Thank you for timely response to this clarification. Yina Adams, MSN, RN RN Specialist-Clinical Doc Improvement CD -Health Info Mgmt Operations [address] [facility] t: [phone] | f: [phone] If you are unable to reach me at my extension, I may be working from home. Please contact me at [phone] PHYSICIAN RESPONSE: Based on the clinical findings in the record, please respond to the query above on this document as an addendum. Physician Response: Physician Response AGREE WITH SEPSIS DUE TO PNEUMONIA If you have questions please contact: Edging Machine Feeder: Ext: Thank you for your time and cooperation. Clinical Grievance Manager/Edging Machine Feeder This is a permanent part of the medical record YINA ADAMS Dec 26, 2019 19:53 REJI GIBBS MD Jan 11, 2020 12:52"
[2019-12-26] MEDS: TAMSULOSIN 0.4 MG (FLOMAX) CAP PO SCH (20:48)
[2019-12-26] MEDS: ALPRAZolam 0.25 MG (XANAX) TAB PO PRN (20:48)
[2019-12-26] MEDS: AZITHROMYCIN INJECTION 500 MG in NS (IVPB) 250 ML IV SCH (20:56)
[2019-12-26] MEDS ORDERED: SOTALOL 80 MG (BETAPACE) TAB PO SCH (21:00)
[2019-12-27] VITALS (20 sets, daily range): BP systolic 123–170; BP diastolic 78–109
[2019-12-27] MEDS: methylPREDNISolone 125 MG (Solu-MEDROL) VIAL IVP SCH ×4 (00:28→17:57)
[2019-12-27] MEDS: RT-ALBUTEROL/IPRATROPIUM 3 ML (DUONEB) VIAL INH SCH ×5 (01:27→19:43)
[2019-12-27 03:37] LABS: BASOPHILS % (AUTO) 0 % (0-10); EOSINOPHILS % (AUTO) 0 % (0-10); HEMATOCRIT 39 % (40-54); HEMOGLOBIN 12.7 g/dL (13.3-17.7); LYMPHOCYTES # (AUTO) 0.5 10^3/uL (1.0-4.0); LYMPHOCYTES % (AUTO) 5 % (12-44); MEAN CORPUSCULAR HEMOGLOBIN 32 pg (25-34); MEAN CORPUSCULAR HGB CONC 33 g/dL (32-36); MEAN CORPUSCULAR VOLUME 98 fL (80-99); MEAN PLATELET VOLUME 9.5 fL (9.0-12.2); MONOCYTES # (AUTO) 0.5 10^3/uL (0.0-1.0); MONOCYTES % (AUTO) 5 % (0-12); NEUTROPHILS # (AUTO) 8.1 10^3/uL (1.8-7.8); NEUTROPHILS % (AUTO) 90 % (42-75); PLATELET COUNT 214 10^3/uL (130-400); WHITE BLOOD COUNT 9.1 10^3/uL (4.3-11.0)
[2019-12-27 03:50] LABS: CHLORIDE 108 MMOL/L (98-107); SODIUM 143 MMOL/L (135-145)
[2019-12-27 03:51] LABS: CALCIUM 8.7 MG/DL (8.5-10.1); GLUCOSE 129 MG/DL (70-105)
[2019-12-27 03:53] LABS: CARBON DIOXIDE 23 MMOL/L (21-32)
[2019-12-27 03:55] LABS: CREATININE SERUM 0.99 MG/DL (0.60-1.30); GFR ESTIMATED > 60; PHOSPHORUS 3.7 MG/DL (2.3-4.7)
[2019-12-27 03:56] LABS: BUN/CREATININE RATIO 33
[2019-12-27 03:57] LABS: MAGNESIUM 2.4 MG/DL (1.6-2.4)
--- NOTE | 2019-12-27 04:50 | Pulmonary Progress Note ---
Subjective Time Seen by a Provider: 04:48 Subjective/Events-last exam Pt is still requiring a lot of oxygen. Sepsis Event Evaluation Height, Weight, BMI Height: 5'11.00" Weight: 251lbs. 0.8oz. [id number]; 33.19 BMI Method:Stated Focused Exam Time of Focused Exam: 15:39 Exam Exam Vital Signs Date Time Temp Pulse Resp B/P (MAP) Pulse Ox O2 Delivery O2 Flow Rate FiO2 12/27/19 01:27 Vapotherm 20.00 60 12/27/19 00:28 36.8 12/26/19 23:11 68 123/80 (94) 95 Vapotherm 20.00 60.00 12/26/19 23:09 73 139/114 (122) 93 Vapotherm 20.00 60.00 12/26/19 23:00 71 140/105 (117) 97 Vapotherm 20.00 50.00 12/26/19 22:43 79 101/94 (96) Vapotherm 20.00 50.00 12/26/19 21:08 Vapotherm 20.00 50 12/26/19 21:00 Vapotherm 20.00 50 12/26/19 21:00 65 128/89 (102) 94 Vapotherm 20.00 50.00 12/26/19 20:26 36.5 77 20 125/72 (89) 91 Vapotherm 20.00 50.00 12/26/19 20:00 74 111/73 (86) 90 Vapotherm 15.00 40.00 12/26/19 19:41 36.6 12/26/19 19:00 70 123/78 (93) 94 Vapotherm 15.00 40.00 12/26/19 19:00 70 12/26/19 18:26 Vapotherm 15.00 40.00 12/26/19 18:13 71 22 97 15.00 12/26/19 18:00 80 119/100 (106) 89 Vapotherm 15.00 50.00 12/26/19 17:00 75 126/88 (101) Vapotherm 15.00 50.00 12/26/19 16:03 36.4 12/26/19 16:00 74 127/94 (105) 95 Vapotherm 15.00 50.00 12/26/19 15:11 Vapotherm 15.00 50 12/26/19 15:00 68 129/96 (107) 96 Vapotherm 15.00 50.00 12/26/19 14:42 NIV CPAP 6.00 12/26/19 14:00 73 45 106/79 (88) 90 Vapotherm 15.00 50.00 12/26/19 13:00 67 9 123/78 (93) 100 Vapotherm 15.00 50.00 12/26/19 12:41 67 12/26/19 12:00 72 21 101/76 (84) 87 Vapotherm 15.00 30.00 12/26/19 12:00 Vapotherm 15.00 50 12/26/19 11:00 76 17 114/72 (86) 91 Vapotherm 15.00 30.00 12/26/19 10:58 Vapotherm 15.00 50 12/26/19 10:00 76 23 118/63 (81) 89 Vapotherm 15.00 30.00 12/26/19 09:00 87 10 121/70 (87) 81 Vapotherm 15.00 30.00 12/26/19 08:09 Vapotherm 15.00 30 12/26/19 08:00 36.5 12/26/19 08:00 75 8 127/81 (96) 90 Vapotherm 15.00 30.00 12/26/19 08:00 Vapotherm 15.00 30 12/26/19 07:41 Vapotherm 15.00 30 12/26/19 07:00 74 16 134/97 (109) 90 Vapotherm 15.00 30.00 12/26/19 06:36 74 12/26/19 06:00 68 129/98 (108) 91 Vapotherm 15.00 30.00 12/26/19 05:45 Vapotherm 15.00 30.00 12/26/19 05:00 67 128/104 (112) Vapotherm 25.00 60.00 I & O 12/27/19 07:00 Intake Total 1145 ml Output Total 1100 ml Balance 45 ml Height & Weight Height: 5'11.00" Weight: 251lbs. 0.8oz. [id number]; 33.19 BMI Method:Stated General Appearance: No Apparent Distress HEENT: Pharyngeal Erythema Neck: Supple Respiratory: Crackles (right base), Decreased Breath Sounds Cardiovascular: Systolic Murmur, Gallop/S4, Irregularly Irregular Capillary Refill: Less Than 3 Seconds Peripheral Pulses: 2+ Radial Pulses (R), 2+ Radial Pulses (L) Gastrointestinal: normal bowel sounds, non tender, soft Extremity: Non Tender, No Calf Tenderness, Pedal Edema (1 plus) Neurologic/Psychiatric: Alert, Oriented x3 Skin: Warm/Dry Lymphatic: No Adenopathy Results Lab Laboratory Tests 12/26/19 02:55 12/27/19 03:29 Assessment/Plan Assessment/Plan Acute respiratory failure -Trial to Vapotherm today -Titrate oxygen down -Currently on Vapotherm -Continue Lasix Acute Bilateral pneumonia -Azithromycin and Zosyn COPDAE -Continue Solumedrol -Continue breathing treatments Afib -Cardiology following SCOT HARVEY DO Dec 27, 2019 04:50
[2019-12-27] MEDS: PIPERACILLIN/TAZOBACTAM (BULK) 4.5 GM in NS (IVPB) 100 ML IV SCH ×3 (05:44→21:37)
[2019-12-27] MEDS: ADVAIR HFA 115/21 MCG INHALER 8 GM IH SCH (07:23)
--- NOTE | 2019-12-27 07:30 | Diagnostic Imaging Report ---
Portable erect AP chest at 423 hours. INDICATION: Respiratory failure. FINDINGS: The cardiomegaly and diffuse alveolar/interstitial pulmonary infiltrates seen on the prior exam of 12/26/2019 are again evident and not significantly changed. The mediastinum is not widened. The osseous structures are intact. The sternal wires and valvular prosthesis noted previously are again evident and no different. The loop recorder device is unchanged as well. IMPRESSION: Stable chest. There has been no adverse change since the prior exam. A follow-up study would be recommended for continued evaluation. Dictated by: Dictated on workstation # [id number]
[2019-12-27] MEDS: PANTOPRAZOLE 40 MG (PROTONIX) TAB PO SCH (08:34)
[2019-12-27] MEDS: APIXABAN 5 MG (ELIQUIS) TABLET PO SCH ×2 (08:34→21:37)
[2019-12-27] MEDS: FUROSEMIDE 40 MG/4 ML INJ (LASIX) IVP SCH (08:34)
[2019-12-27] MEDS: SOTALOL 80 MG (BETAPACE) TAB PO SCH ×2 (08:35→21:38)
--- NOTE | 2019-12-27 08:50 | Progress Note ---
Subjective Subjective Date Seen by Provider: Dec 27, 2019 Time Seen by Provider: 08:50 PT REPORTS THAT HE FEELS ABOUT THE SAME TODAY YESTERDAY - STAFF REPORTS THAT HE IS STILL REQUIRING A LOT OF OXYGEN VIA VAPOTHERM. HE DENIES ABDOMINAL PAIN, NAUSEA, CHEST PAIN, BUT DOES ADMIT TO SHORTNESS OF BREATH WITH ANY ACTIVITY. Review of Systems General: No Chills, No Night Sweats; Fatigue, Malaise; No Appetite, No Other HEENT: No Head Aches, No Visual Changes, No Eye Pain, No Ear Pain, No Dysphasia, No Sinus Congestion, No Post Nasal Drip, No Sore Throat, No Other Pulmonary: Dyspnea; No Cough, No Pleuritic Chest Pain, No Other Cardiovascular: No: Chest Pain, Palpitations, Orthopnea, Paroxysmal Noc. Dyspnea, Edema, Lt Headedness, Other All Other Systems Reviewed All Other Systems Reviewed: Yes Objective Exam Vital Signs Vital Signs - First Documented 12/23/19 12/23/19 12/23/19 13:40 13:42 20:21 Temp 35.4 Pulse 106 Resp 26 B/P (MAP) 121/89 (100) Pulse Ox 86 O2 Delivery Room Air O2 Flow Rate 15.00 FiO2 40 Capillary Refill : Less Than 3 Seconds General Appearance: No Apparent Distress Eyes: Bilateral Eye Normal Inspection, Bilateral Eye PERRL, Bilateral Eye EOMI HEENT: Pharyngeal Erythema Neck: Supple Respiratory: Crackles (right base), Decreased Breath Sounds Cardiovascular: Systolic Murmur, Gallop/S4, Irregularly Irregular Gastrointestinal: Normal Bowel Sounds, Non Tender, Soft Rectal: Deferred Back: No CVA Tenderness Extremity: Non Tender, No Calf Tenderness, Pedal Edema (1 plus) Neurologic/Psychiatric: Alert, Oriented x3 Skin: Warm/Dry Lymphatic: No Adenopathy Results Lab Laboratory Tests 12/27/19 03:29: White Blood Count 9.1, Red Blood Count 3.96L, Hemoglobin 12.7L, Hematocrit 39L, Mean Corpuscular Volume 98, Mean Corpuscular Hemoglobin 32, Mean Corpuscular Hemoglobin Concent 33, Red Cell Distribution Width 15.9H, Platelet Count 214, Mean Platelet Volume 9.5, Immature Granulocyte % (Auto) 0, Neutrophils (%) (Auto) 90H, Lymphocytes (%) (Auto) 5L, Monocytes (%) (Auto) 5, Eosinophils (%) (Auto) 0, Basophils (%) (Auto) 0, Neutrophils # (Auto) 8.1H, Lymphocytes # (Auto) 0.5L, Monocytes # (Auto) 0.5, Eosinophils # (Auto) 0.0, Basophils # (Auto) 0.0, Immature Granulocyte # (Auto) 0.0, Sodium Level 143, Potassium Level 4.0, Chloride Level 108H, Carbon Dioxide Level 23, Anion Gap 12, Blood Urea Nitrogen 33H, Creatinine 0.99, Estimat Glomerular Filtration Rate > 60, BUN/Creatinine Ratio 33, Glucose Level 129H, Calcium Level 8.7, Phosphorus Level 3.7, Magnesium Level 2.4 Microbiology 12/25/19 MRSA Screen - Final, Complete MRSA not isolated 12/23/19 Urine Culture - Final, Complete NO GROWTH 12/23/19 Blood Culture - Preliminary, Resulted No growth Assessment/Plan Assessment/Plan Assessment and Plan ACUTE RESPIRATORY FAILURE - IMPROVING AND PT IS OFF OF CPAP CONTINUOUSLY AND ON VAPOTHERM WITH PLANS FOR WEANING DOWN MEDICATION BILATERAL PNEUMONIA - PT ON ZOSYN AND ZITHROMAX, CONTINUE WITH CURRENT MANAGEMENT, MONITOR SERIAL CHEST XRAYS AFIB WITH RVR - PT HAS CONVERTED - DEFER TO CARDIOLOGY - COPD EXACERBATION - ON IV STEROIDS, WILL WEAN TO ORAL MEDICATION - CONTINUE WITH HOME REGIMEN ACUTE ON CHRONIC CONGESTIVE FAILURE - DUE TO AFIB - SHOULD IMPROVE HIS AFIB IMPROVES AND WITH IV LASIX. Clinical Quality Measures DVT/VTE Risk/Contraindication: Risk Factor Score Per Nursin RFS Level Per Nursing on Admit: 4+=Very High REJI GIBBS MD Dec 27, 2019 08:50
[2019-12-27] MEDS ORDERED: SOTALOL 80 MG (BETAPACE) TAB PO SCH (09:00)
[2019-12-27] MEDS ORDERED: PANTOPRAZOLE 40 MG (PROTONIX) VIAL IV SCH (09:00)
[2019-12-27] MEDS ORDERED: RT-ALBUTEROL/IPRATROPIUM 3 ML (DUONEB) VIAL INH PRN (12:00)
[2019-12-27] MEDS ORDERED: amLODIPine 5 MG (NORVASC) TAB ONE (12:04)
--- NOTE | 2019-12-27 14:02 | Cardiology Progress Note ---
Cardiology SOAP Progress Note Subjective: Improved shortness of breath. Objective: I&O/Vital Signs 12/27/19 12/27/19 12/27/19 12/27/19 03:00 03:37 04:00 04:00 Temp 36.9 Pulse 68 69 71 B/P (MAP) 138/83 (101) 134/98 (110) Pulse Ox 93 90 O2 Delivery Vapotherm Vapotherm Vapotherm O2 Flow Rate 20.00 20.00 20.00 60.00 50.00 50.00 12/27/19 12/27/19 12/27/19 12/27/19 05:00 06:00 07:00 07:22 Pulse 56 59 60 B/P (MAP) 156/104 (121) 160/102 (121) 160/93 (115) Pulse Ox 98 96 93 93 O2 Delivery Vapotherm Vapotherm Vapotherm Vapotherm O2 Flow Rate 20.00 20.00 20.00 20.00 50.00 50.00 50.00 FiO2 55 12/27/19 12/27/19 12/27/19 12/27/19 07:39 08:00 08:38 09:00 Pulse 58 64 60 B/P (MAP) 170/82 (111) 145/99 (114) Pulse Ox 95 99 O2 Delivery Vapotherm Vapotherm Vapotherm O2 Flow Rate 20.00 20.00 20.00 50.00 50.00 FiO2 55 12/27/19 12/27/19 12/27/19 12/27/19 10:00 10:38 10:45 11:00 Temp 36.9 Pulse 65 63 51 B/P (MAP) 135/102 (113) 147/109 (122) Pulse Ox 95 98 98 96 O2 Delivery Vapotherm Vapotherm Vapotherm O2 Flow Rate 20.00 20.00 20.00 50.00 50.00 FiO2 55 55 12/27/19 12/27/19 12/27/19 12/27/19 12:00 12:16 12:18 13:00 Temp 36.6 Pulse 64 68 66 B/P (MAP) 137/93 (108) 134/83 (100) Pulse Ox 93 95 O2 Delivery Vapotherm Vapotherm O2 Flow Rate 20.00 20.00 50.00 50.00 12/27/19 00:00 Intake Total 770 ml Output Total 1100 ml Balance -330 ml Weight (Pounds): 251 Weight (Ounces): 0.8 Weight (Calculated Kilograms): 112.691393 Constitutional: AAO x 3 Respiratory: other (decreased breath sounds bilaterally.) Cardiovascular: regular rate-rhythm, S1 and S2 Gastrointestional: soft, round, audible bowel sounds Extremities: normal range of motion, non-tender, normal inspection, pedal edema Neurologic/Psychiatric: no motor/sensory deficits, alert, normal mood/affect, oriented x 3 Skin: normal color, warm/dry Results/Procedures: Labs Laboratory Tests 12/27/19 03:29: White Blood Count 9.1, Red Blood Count 3.96L, Hemoglobin 12.7L, Hematocrit 39L, Mean Corpuscular Volume 98, Mean Corpuscular Hemoglobin 32, Mean Corpuscular Hemoglobin Concent 33, Red Cell Distribution Width 15.9H, Platelet Count 214, Mean Platelet Volume 9.5, Immature Granulocyte % (Auto) 0, Neutrophils (%) (Auto) 90H, Lymphocytes (%) (Auto) 5L, Monocytes (%) (Auto) 5, Eosinophils (%) (Auto) 0, Basophils (%) (Auto) 0, Neutrophils # (Auto) 8.1H, Lymphocytes # (Auto) 0.5L, Monocytes # (Auto) 0.5, Eosinophils # (Auto) 0.0, Basophils # (Auto) 0.0, Immature Granulocyte # (Auto) 0.0, Sodium Level 143, Potassium Level 4.0, Chloride Level 108H, Carbon Dioxide Level 23, Anion Gap 12, Blood Urea Nitrogen 33H, Creatinine 0.99, Estimat Glomerular Filtration Rate > 60, BUN/ Creatinine Ratio 33, Glucose Level 129H, Calcium Level 8.7, Phosphorus Level 3.7, Magnesium Level 2.4 Microbiology 12/25/19 MRSA Screen - Final, Complete MRSA not isolated 12/23/19 Urine Culture - Final, Complete NO GROWTH 12/23/19 Blood Culture - Preliminary, Resulted No growth A/P: Assessment/Dx: Acute respiratory failure Paroxysmal atrial flutter Pneumonia Hyperlipidemia Plan: Shortness of breath, acute on chronic respiratory failure, improving slowly, still on Vapotherm, managed by Dr. Jackson Bilateral pneumonia, receiving antibiotics, managed by Dr. Jackson Paroxysmal atrial fibrillation/flutter, had ablation done with Dr. Pratt in April 2019. Had episode of atrial flutter with rapid ventricular response, I did electrical cardioversion on December 25, 2019, patient went back to atrial flutter. I gave him one dose of amiodarone IV. On sotalol 80 mg twice a day. Chest pain, nonspecific etiology, Stress test done July 2018 revealed no ischemia or infarct. Probably secondary to hypoxemia and tachycardia, underlying coronary artery disease cannot be excluded, heart defect enzymes were negative. Continue to monitor History of mitral valve repair with annuloplasty ring [place] [address] Dean, has been asymptomatic, last echocardiogram was done in November 2018 showing ejection fraction 55-65 percent, left atrium 5.4 cm, the mitral valve has some deterioration compared to the previous study. I will evaluate 2-D echo [id number] score is 3, yearly risk of stroke without oral anticoagulation is 3.2 percent. Maintained on Eliquis. Continue to monitor. 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 Ibrahim at [facility], had ablation with Dr Pratt in April 2019, continue on sotalol for now and monitor Hypertension, monitor blood pressure while on diltiazem drip and oral in addition to sotalol Hyperlipidemia, continue to monitor lipids Hemochromatosis- followed by Dr. Lynn. History of heart catheterization done in 2009 and reported to have no significant obstructive disease in his coronaries, continue to monitor no changes are recommended History of syncope after the heart catheterization of unknown etiology. Diabetes mellitus, controlled by diet, followed and managed by primary care physician COPD/Obstructive sleep apnea use C Pap at night, followed and managed by Dr. Jackson Sjogermari syndrome, fibromyalgia, spinal stenosis, osteoporosis, osteoarthritis, left elbow ulnar nerve release, carpal tunnel release, bilateral inguinal hernia repair Thank you for your consultation. Please call me if you have any questions. Marco Pratt MD, FACP, FACC, FSCAI, FHRS, CCDS Interventional Cardiology Cardiac Electrophysiology Vascular Medicine and Endovascular Interventions Focused Exam Time of Focused Exam: 15:39 Omar PRATT MD Dec 27, 2019 14:02
[2019-12-27] MEDS: dilTIAZem120 MG (CARDIZEM CD) CAP PO SCH (17:54)
[2019-12-27] MEDS: TAMSULOSIN 0.4 MG (FLOMAX) CAP PO SCH (17:57)
--- NOTE | 2019-12-27 23:49 | NUR ---
2 hour post sotalol EKG taken, results called to Dr. Pratt. This RN notified Dr. Pratt of continued tachycardia in the 130s, no new orders at this time.
[2019-12-28] MEDS: methylPREDNISolone 125 MG (Solu-MEDROL) VIAL IVP SCH ×2 (01:24→05:27)
[2019-12-28] MEDS: RT-ALBUTEROL/IPRATROPIUM 3 ML (DUONEB) VIAL INH SCH ×5 (02:31→19:27)
[2019-12-28] MEDS: ADVAIR HFA 115/21 MCG INHALER 8 GM IH SCH ×3 (02:31→19:26)
[2019-12-28 03:18] VITALS: BP 108/75
[2019-12-28 04:05] LABS: BASOPHILS % (AUTO) 0 % (0-10); EOSINOPHILS % (AUTO) 0 % (0-10); HEMATOCRIT 40 % (40-54); HEMOGLOBIN 12.8 g/dL (13.3-17.7); LYMPHOCYTES # (AUTO) 0.4 10^3/uL (1.0-4.0); LYMPHOCYTES % (AUTO) 6 % (12-44); MEAN CORPUSCULAR HEMOGLOBIN 32 pg (25-34); MEAN CORPUSCULAR HGB CONC 32 g/dL (32-36); MEAN CORPUSCULAR VOLUME 99 fL (80-99); MEAN PLATELET VOLUME 9.6 fL (9.0-12.2); MONOCYTES # (AUTO) 0.5 10^3/uL (0.0-1.0); MONOCYTES % (AUTO) 6 % (0-12); NEUTROPHILS # (AUTO) 6.3 10^3/uL (1.8-7.8); NEUTROPHILS % (AUTO) 87 % (42-75); PLATELET COUNT 222 10^3/uL (130-400); WHITE BLOOD COUNT 7.2 10^3/uL (4.3-11.0)
[2019-12-28 04:17] LABS: CHLORIDE 105 MMOL/L (98-107); POTASSIUM 4.1 MMOL/L (3.6-5.0); SODIUM 138 MMOL/L (135-145)
[2019-12-28 04:18] LABS: CALCIUM 8.6 MG/DL (8.5-10.1)
[2019-12-28 04:19] LABS: GLUCOSE 127 MG/DL (70-105)
[2019-12-28 04:20] LABS: CARBON DIOXIDE 23 MMOL/L (21-32)
[2019-12-28 04:22] LABS: CREATININE SERUM 0.94 MG/DL (0.60-1.30); GFR ESTIMATED > 60; PHOSPHORUS 3.4 MG/DL (2.3-4.7)
[2019-12-28 04:23] LABS: BUN/CREATININE RATIO 31
[2019-12-28 04:25] LABS: MAGNESIUM 2.4 MG/DL (1.6-2.4)
[2019-12-28] MEDS: PIPERACILLIN/TAZOBACTAM (BULK) 4.5 GM in NS (IVPB) 100 ML IV SCH ×3 (05:27→21:22)
--- NOTE | 2019-12-28 06:44 | Diagnostic Imaging Report ---
EXAMINATION: Chest 1 view HISTORY: Respiratory failure COMPARISON: 12/27/2019 FINDINGS: Median sternotomy wires are aligned. Mitral valve annuloplasty ring is present. There are severe bilateral peripheral areas of airspace opacity and septal line thickening. There are likely small bilateral pleural effusions. No pneumothorax. Heart is enlarged. IMPRESSION: 1. Severe peripheral bilateral areas of airspace opacities and septal line thickening with small pleural effusion and enlarged heart. Findings favored to reflect severe edema but could be seen with an infection as well. Dictated by: Dictated on workstation # [id number]
--- NOTE | 2019-12-28 06:45 | Pulmonary Progress Note ---
Subjective Time Seen by a Provider: 06:44 Sepsis Event Evaluation Height, Weight, BMI Height: 5'11.00" Weight: 251lbs. 0.8oz. 112.133473ej; 33.19 BMI Method:Stated Focused Exam Time of Focused Exam: 15:39 Exam Exam Vital Signs Date Time Temp Pulse Resp B/P (MAP) Pulse Ox O2 Delivery O2 Flow Rate FiO2 12/28/19 03:18 36.3 122 20 108/75 (86) 93 Vapotherm 20.00 55.00 12/28/19 02:38 Vapotherm 20.00 55 12/28/19 01:00 123 12/27/19 23:38 136 12/27/19 23:20 36.1 137 20 134/78 (96) 93 Vapotherm 20.00 55.00 12/27/19 21:58 Vapotherm 20.00 55 12/27/19 21:48 134 126/87 (100) 12/27/19 21:41 132 123/93 (103) 12/27/19 21:38 134 12/27/19 19:41 36.3 137 20 126/92 (103) 96 Vapotherm 20.00 55.00 12/27/19 19:00 134 12/27/19 16:00 64 128/84 (99) 93 Vapotherm 20.00 55.00 12/27/19 14:05 66 12/27/19 13:00 66 134/83 (100) 95 Vapotherm 20.00 50.00 12/27/19 12:18 36.6 12/27/19 12:16 68 12/27/19 12:00 64 137/93 (108) 93 Vapotherm 20.00 50.00 12/27/19 11:00 51 147/109 (122) 96 Vapotherm 20.00 50.00 12/27/19 10:45 98 Vapotherm 20.00 55 12/27/19 10:38 36.9 63 98 55 12/27/19 10:00 65 135/102 (113) 95 Vapotherm 20.00 50.00 12/27/19 09:00 60 145/99 (114) 99 Vapotherm 20.00 50.00 12/27/19 08:38 Vapotherm 20.00 55 12/27/19 08:00 64 170/82 (111) 95 Vapotherm 20.00 50.00 12/27/19 07:39 58 12/27/19 07:22 93 Vapotherm 20.00 55 12/27/19 07:00 60 160/93 (115) 93 Vapotherm 20.00 50.00 I & O 12/28/19 07:00 Intake Total 1100 ml Output Total 2350 ml Balance -1250 ml Height & Weight Height: 5'11.00" Weight: 251lbs. 0.8oz. 112.728421cj; 33.19 BMI Method:Stated General Appearance: No Apparent Distress HEENT: Pharyngeal Erythema Neck: Supple Respiratory: Crackles (right base), Decreased Breath Sounds Cardiovascular: Systolic Murmur, Gallop/S4, Irregularly Irregular Capillary Refill: Less Than 3 Seconds Peripheral Pulses: 2+ Radial Pulses (R), 2+ Radial Pulses (L) Gastrointestinal: normal bowel sounds, non tender, soft Extremity: Non Tender, No Calf Tenderness, Pedal Edema (1 plus) Neurologic/Psychiatric: Alert, Oriented x3 Skin: Warm/Dry Lymphatic: No Adenopathy Results Lab Laboratory Tests 12/27/19 03:29 12/28/19 03:36 Assessment/Plan Assessment/Plan Acute respiratory failure -Trial to Vapotherm today -Titrate oxygen down -Currently on Vapotherm -Continue Lasix Acute Bilateral pneumonia -Azithromycin and Zosyn COPDAE -Continue Solumedrol -- Decrease Solumedrol to 40mg IV Q 12 -Continue breathing treatments Afib -Cardiology following SCOT HARVEY DO Dec 28, 2019 06:45
--- NOTE | 2019-12-28 08:37 | Progress Note ---
Subjective Subjective Date Seen by Provider: Dec 28, 2019 Time Seen by Provider: 08:20 PT IS ON CARDIAC STEP DOWN - HE REPORTS THAT HE FEELS A LITTLE OFF, BUT BETTER THAN YESTERDAY - STAFF REPORTS THAT HE DID NOT ALLOW THEM TO PLACE THE BIPAP ON YESTERDAY EVENING. HE DOES NOT REMEMBER REFUSING THE BIPAP. HE STATES THAT HE IS FEELING LIKE HE HAS SOME FLUID ON BOARD OF HIS BODY. HE IS WONDERING WHEN HE WILL BE DISCHARGED. Review of Systems General: No Chills, No Night Sweats; Fatigue, Malaise; No Appetite, No Other HEENT: No Head Aches, No Visual Changes, No Eye Pain, No Ear Pain, No Dysphasia, No Sinus Congestion, No Post Nasal Drip, No Sore Throat, No Other Pulmonary: Dyspnea; No Cough, No Pleuritic Chest Pain, No Other Cardiovascular: No: Chest Pain, Palpitations, Orthopnea, Paroxysmal Noc. Dyspnea, Edema, Lt Headedness, Other All Other Systems Reviewed All Other Systems Reviewed: Yes Objective Exam Vital Signs Vital Signs - First Documented 12/23/19 12/23/19 12/23/19 13:40 13:42 20:21 Temp 35.4 Pulse 106 Resp 26 B/P (MAP) 121/89 (100) Pulse Ox 86 O2 Delivery Room Air O2 Flow Rate 15.00 FiO2 40 Capillary Refill : Less Than 3 Seconds General Appearance: No Apparent Distress Eyes: Bilateral Eye Normal Inspection, Bilateral Eye PERRL, Bilateral Eye EOMI HEENT: Pharyngeal Erythema Neck: Supple Respiratory: Crackles (right base), Decreased Breath Sounds Cardiovascular: Systolic Murmur, Gallop/S4, Irregularly Irregular, Tachycardia Gastrointestinal: Normal Bowel Sounds, Non Tender, Soft Rectal: Deferred Back: No CVA Tenderness Extremity: Non Tender, No Calf Tenderness, Pedal Edema (1 plus) Neurologic/Psychiatric: Alert, Oriented x3 Skin: Warm/Dry Lymphatic: No Adenopathy Results Lab Laboratory Tests 12/28/19 03:36: White Blood Count 7.2, Red Blood Count 4.02L, Hemoglobin 12.8L, Hematocrit 40, Mean Corpuscular Volume 99, Mean Corpuscular Hemoglobin 32, Mean Corpuscular Hemoglobin Concent 32, Red Cell Distribution Width 15.5H, Platelet Count 222, Mean Platelet Volume 9.6, Immature Granulocyte % (Auto) 1, Neutrophils (%) (Auto) 87H, Lymphocytes (%) (Auto) 6L, Monocytes (%) (Auto) 6, Eosinophils (%) (Auto) 0, Basophils (%) (Auto) 0, Neutrophils # (Auto) 6.3, Lymphocytes # (Auto) 0.4L, Monocytes # (Auto) 0.5, Eosinophils # (Auto) 0.0, Basophils # (Auto) 0.0, Immature Granulocyte # (Auto) 0.0, Sodium Level 138, Potassium Level 4.1, Chloride Level 105, Carbon Dioxide Level 23, Anion Gap 10, Blood Urea Nitrogen 29H, Creatinine 0.94, Estimat Glomerular Filtration Rate > 60, BUN/Creatinine Ratio 31, Glucose Level 127H, Calcium Level 8.6, Phosphorus Level 3.4, Magnesium Level 2.4 Microbiology 12/25/19 MRSA Screen - Final, Complete MRSA not isolated 12/23/19 Urine Culture - Final, Complete NO GROWTH 12/23/19 Blood Culture - Preliminary, Resulted No growth Assessment/Plan Assessment/Plan Assessment and Plan ACUTE RESPIRATORY FAILURE - IMPROVING AND PT IS OFF OF CPAP CONTINUOUSLY AND ON VAPOTHERM WITH PLANS FOR WEANING DOWN MEDICATION - DISCUSSED PT WITH DR. HARVEY - WE ARE GOING TO HOLD OFF ON WEANING DOWN ON VAPOTHERM TODAY - GIVE EXTRA DOSE OF LASIX THIS AFTERNOON AND SEE HOW HE IS IN THE MORNING, DEPENDING ON HIS RESPONSE TO THE LASIX, WE WILL THEN WORK ON WEANING OXYGEN DOWN. BILATERAL PNEUMONIA - PT ON ZOSYN CONTINUE WITH CURRENT MANAGEMENT, MONITOR SERIAL CHEST XRAYS AFIB WITH RVR - PT HAS CONVERTED - DEFER TO CARDIOLOGY - COPD EXACERBATION - ON IV STEROIDS, WILL WEAN TO ORAL MEDICATION - CONTINUE WITH HOME REGIMEN ACUTE ON CHRONIC CONGESTIVE FAILURE - DUE TO AFIB - SHOULD IMPROVE HIS AFIB IMPROVES AND WITH IV LASIX. Clinical Quality Measures DVT/VTE Risk/Contraindication: Risk Factor Score Per Nursin RFS Level Per Nursing on Admit: 4+=Very High REJI GIBBS MD Dec 28, 2019 08:37
[2019-12-28] MEDS ORDERED: LACTOBACILLUS ACIDOPHILUS (PROBIOTIC) CAPSULE ONE (08:50)
[2019-12-28 09:18] VITALS: BP 119/77
[2019-12-28] MEDS: SOTALOL 80 MG (BETAPACE) TAB PO SCH ×2 (09:26→21:22)
[2019-12-28] MEDS: APIXABAN 5 MG (ELIQUIS) TABLET PO SCH ×2 (09:26→21:22)
[2019-12-28] MEDS: PANTOPRAZOLE 40 MG (PROTONIX) TAB PO SCH (09:26)
[2019-12-28] MEDS: dilTIAZem120 MG (CARDIZEM CD) CAP PO SCH (09:26)
[2019-12-28] MEDS: FUROSEMIDE 40 MG/4 ML INJ (LASIX) IVP SCH (09:27)
[2019-12-28 12:00] VITALS: BP 131/93
[2019-12-28] MEDS: LACTOBACILLUS ACIDOPHILUS (PROBIOTIC) CAPSULE PO SCH ×2 (12:34→18:28)
[2019-12-28] MEDS ORDERED: FUROSEMIDE 40 MG/4 ML INJ (LASIX) IVP ONE (14:00)
[2019-12-28 16:00] VITALS: BP 113/68
--- NOTE | 2019-12-28 17:20 | Cardiology Progress Note ---
Cardiology SOAP Progress Note Subjective: Short of breath Objective: I&O/Vital Signs 12/29/19 12/29/19 12/29/19 12/29/19 06:59 07:25 08:00 08:00 Pulse 126 128 Resp 20 B/P (MAP) 133/76 (95) Pulse Ox 96 95 O2 Delivery NIV CPAP Vapotherm Vapotherm O2 Flow Rate 8.00 20.00 20.00 50.00 FiO2 55 12/29/19 12/29/19 12/29/19 12/29/19 10:02 10:26 12:20 12:26 Temp 36.2 Pulse 120 127 127 Resp 20 B/P (MAP) 123/90 (101) Pulse Ox 98 O2 Delivery Vapotherm High Flow N/C O2 Flow Rate 5.00 6.00 96.00 12/29/19 12/29/19 12/29/19 12/29/19 13:19 13:21 15:26 16:00 Temp 36.6 Pulse 127 127 Resp 19 B/P (MAP) 143/110 (121) Pulse Ox 96 100 97 O2 Delivery High Flow N/C High Flow N/C Nasal Cannula High Flow N/C O2 Flow Rate 6.00 6.00 4.00 6.00 96.00 96.00 12/29/19 00:00 Intake Total 1700 ml Output Total 3325 ml Balance -1625 ml Weight (Pounds): 251 Weight (Ounces): 0.8 Weight (Calculated Kilograms): 112.246862 Constitutional: AAO x 3 Respiratory: respiratory distress, other (decreased breath sounds bilaterally.) Cardiovascular: regular rate-rhythm, S1 and S2 Gastrointestional: soft, round, audible bowel sounds Extremities: normal range of motion, non-tender, normal inspection, pedal edema Neurologic/Psychiatric: no motor/sensory deficits, alert, normal mood/affect, oriented x 3 Skin: normal color, warm/dry Results/Procedures: Labs Laboratory Tests 12/29/19 02:08: White Blood Count 9.3, Red Blood Count 4.51, Hemoglobin 14.2, Hematocrit 44, Mean Corpuscular Volume 97, Mean Corpuscular Hemoglobin 32, Mean Corpuscular Hemoglobin Concent 33, Red Cell Distribution Width 14.9H, Platelet Count 220, Mean Platelet Volume 9.8, Immature Granulocyte % (Auto) 0, Neutrophils (%) (Auto) 88H, Lymphocytes (%) (Auto) 4L, Monocytes (%) (Auto) 7, Eosinophils (%) (Auto) 0, Basophils (%) (Auto) 0, Neutrophils # (Auto) 8.2H, Lymphocytes # (Auto) 0.4L, Monocytes # (Auto) 0.7, Eosinophils # (Auto) 0.0, Basophils # (Auto) 0.0, Immature Granulocyte # (Auto) 0.0, Sodium Level 140, Potassium Level 3.5L, Chloride Level 100, Carbon Dioxide Level 26, Anion Gap 14, Blood Urea Nitrogen 33H, Creatinine 1.12, Estimat Glomerular Filtration Rate > 60, BUN/Creatinine Ratio 29, Glucose Level 138H, Calcium Level 9.2, Phosphorus Level 3.9, Magnesium Level 2.2 Microbiology 12/25/19 MRSA Screen - Final, Complete MRSA not isolated 12/23/19 Urine Culture - Final, Complete NO GROWTH 12/23/19 Blood Culture - Final, Complete No growth A/P: Assessment/Dx: Acute respiratory failure Paroxysmal atrial flutter Pneumonia Hyperlipidemia Plan: Shortness of breath, acute on chronic respiratory failure, improving slowly, still on Vapotherm, managed by Dr. Jackson Bilateral pneumonia, receiving antibiotics, managed by Dr. Jackson Paroxysmal atrial fibrillation/flutter, had ablation done with Dr. Pratt in April 2019. Had episode of atrial flutter with rapid ventricular response, I did electrical cardioversion on December 25, 2019, patient went back to atrial flutter. I gave him one dose of amiodarone IV. On sotalol 80 mg twice a day. Chest pain, nonspecific etiology, Stress test done July 2018 revealed no ischemia or infarct. Probably secondary to hypoxemia and tachycardia, underlying coronary artery disease cannot be excluded, heart defect enzymes were negative. Continue to monitor History of mitral valve repair with annuloplasty ring [place] [address] Dean, has been asymptomatic, last echocardiogram was done in November 2018 showing ejection fraction 55-65 percent, left atrium 5.4 cm, the mitral valve has some deterioration compared to the previous study. I will evaluate 2-D echo [id number] score is 3, yearly risk of stroke without oral anticoagulation is 3.2 percent. Maintained on Eliquis. Continue to monitor. 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 Lynn. History of heart catheterization done in 2009 and reported to have no significant obstructive disease in his coronaries, continue to monitor no changes are recommended History of syncope after the heart catheterization of unknown etiology. Diabetes mellitus, controlled by diet, followed and managed by primary care physician COPD/Obstructive sleep apnea use C Pap at night, followed and managed by Dr. Jackson Sjogermari syndrome, fibromyalgia, spinal stenosis, osteoporosis, osteoarthritis, left elbow ulnar nerve release, carpal tunnel release, bilateral inguinal hernia repair Thank you for your consultation. Please call me if you have any questions. Marco Pratt MD, FACP, FACC, FSCAI, FHRS, CCDS Interventional Cardiology Cardiac Electrophysiology Vascular Medicine and Endovascular Interventions Focused Exam Time of Focused Exam: 15:39 Omar PRATT MD Dec 28, 2019 17:19
[2019-12-28] MEDS: TAMSULOSIN 0.4 MG (FLOMAX) CAP PO SCH (18:28)
[2019-12-28] MEDS: methylPREDNISolone 40 MG/ML (Solu-MEDROL) VIAL IV SCH (18:28)
[2019-12-28 20:00] VITALS: BP 133/76
--- NOTE | 2019-12-28 21:15 | NUR ---
EKG taken, results called to Dr. Lopez per sotalol order. dr. lopez informed this rn to give sotalol.
[2019-12-29] VITALS (8 sets, daily range): BP systolic 119–143; BP diastolic 76–110
[2019-12-29] MEDS: RT-ALBUTEROL/IPRATROPIUM 3 ML (DUONEB) VIAL INH SCH ×7 (00:05→21:29)
[2019-12-29 03:04] LABS: BASOPHILS % (AUTO) 0 % (0-10); EOSINOPHILS % (AUTO) 0 % (0-10); HEMATOCRIT 44 % (40-54); HEMOGLOBIN 14.2 g/dL (13.3-17.7); LYMPHOCYTES # (AUTO) 0.4 10^3/uL (1.0-4.0); LYMPHOCYTES % (AUTO) 4 % (12-44); MEAN CORPUSCULAR HEMOGLOBIN 32 pg (25-34); MEAN CORPUSCULAR HGB CONC 33 g/dL (32-36); MEAN CORPUSCULAR VOLUME 97 fL (80-99); MEAN PLATELET VOLUME 9.8 fL (9.0-12.2); MONOCYTES # (AUTO) 0.7 10^3/uL (0.0-1.0); MONOCYTES % (AUTO) 7 % (0-12); NEUTROPHILS # (AUTO) 8.2 10^3/uL (1.8-7.8); NEUTROPHILS % (AUTO) 88 % (42-75); PLATELET COUNT 220 10^3/uL (130-400); WHITE BLOOD COUNT 9.3 10^3/uL (4.3-11.0)
[2019-12-29 03:27] LABS: BUN/CREATININE RATIO 29; CALCIUM 9.2 MG/DL (8.5-10.1); CARBON DIOXIDE 26 MMOL/L (21-32); CHLORIDE 100 MMOL/L (98-107); CREATININE SERUM 1.12 MG/DL (0.60-1.30); GFR ESTIMATED > 60; GLUCOSE 138 MG/DL (70-105); MAGNESIUM 2.2 MG/DL (1.6-2.4); PHOSPHORUS 3.9 MG/DL (2.3-4.7); POTASSIUM 3.5 MMOL/L (3.6-5.0); SODIUM 140 MMOL/L (135-145)
[2019-12-29] MEDS: PIPERACILLIN/TAZOBACTAM (BULK) 4.5 GM in NS (IVPB) 100 ML IV SCH ×3 (06:05→21:30)
[2019-12-29] MEDS: PANTOPRAZOLE 40 MG (PROTONIX) TAB PO SCH (06:05)
[2019-12-29] MEDS: methylPREDNISolone 40 MG/ML (Solu-MEDROL) VIAL IV SCH ×2 (06:05→17:21)
[2019-12-29] MEDS: ADVAIR HFA 115/21 MCG INHALER 8 GM IH SCH ×2 (06:58→21:29)
--- NOTE | 2019-12-29 07:43 | Diagnostic Imaging Report ---
INDICATION: Respiratory failure. COMPARISON: 12/28/2019 FINDINGS: Single frontal radiographic view of the chest was obtained and demonstrates persistent scattered patchy and confluent infiltrates throughout all 5 lobes. Overall, aeration is stable. There is no large effusion or pneumothorax. Cardiac silhouette remains enlarged. Pulmonary vasculature is obscured. Sternotomy wires noted. Osseous structures show no acute interval change. IMPRESSION: 1. Stable exam of the chest showing bilateral diffuse infiltrates. 2. Cardiomegaly. Dictated by: Dictated on workstation # [id number]
[2019-12-29] MEDS ORDERED: KCL 20 MEQ TAB (K-DUR) PO ONE (09:00)
[2019-12-29] MEDS: LACTOBACILLUS ACIDOPHILUS (PROBIOTIC) CAPSULE PO SCH ×3 (09:11→17:21)
--- NOTE | 2019-12-29 09:45 | Diagnostic Imaging Report ---
PROCEDURE: CT chest without contrast. TECHNIQUE: Multiple contiguous axial images were obtained through the chest without the use of intravenous contrast. Auto Exposure Controls were utilized during the CT exam to meet ALARA standards for radiation dose reduction. INDICATION: Dyspnea and increasing shortness of breath. Comparison is made study of 01/13/2019 FINDINGS: There is stable overall appearance of extensive centrilobular emphysema with an upper lobe predominance. Predominantly linear densities in the upper lobe regions are similar to previous study and likely represent areas of scarring. Mild irregular nodular focus in the left upper lobe just above the aortic arch has not significantly changed. There is mild increase in pleural thickening in the right lateral chest just below the ginny. There is no evidence of new mass or focal infiltrate. There is no significant pleural or pericardial fluid. Occasional mildly prominent mediastinal lymph nodes have not significantly changed. 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 Extensive tracheal cartilage calcification is noted. Upper abdominal sections reveal punctate calcification throughout the pancreas suggestive of chronic pancreatitis. IMPRESSION: Extensive emphysema and presumed interstitial scarring which is likely the result of COPD. Mild increase in pleural thickening in the lateral right lower hemithorax is of uncertain significance and may be related to pleuritis or increasing fibrosis. No other definite acute abnormality or significant adverse change is noted. Dictated by: Dictated on workstation # [id number]
[2019-12-29] MEDS: APIXABAN 5 MG (ELIQUIS) TABLET PO SCH ×2 (10:15→21:29)
[2019-12-29] MEDS: FUROSEMIDE 40 MG/4 ML INJ (LASIX) IVP SCH (10:16)
[2019-12-29] MEDS: SPIRONOLACTONE 25 MG (ALDACTONE) TAB PO SCH (10:16)
--- NOTE | 2019-12-29 10:23 | NUR ---
EKG SENT TO [facility] AT THIS TIME PER ORDER REQUEST. [facility] APPROVES FOR THIS RN TO ADMINISTER SOTALOL AT THIS TIME.
[2019-12-29] MEDS: SOTALOL 80 MG (BETAPACE) TAB PO SCH (10:26)
--- NOTE | 2019-12-29 12:27 | NUR ---
REPORT RECEIVED FROM SHAE PAULSON TO ASSUME NURSING CARE, PATIENT ALERT AND ORIENTED, PULSE RATE 127, DENIES PAIN OR SOB, O2 SAT 98 PERCENT, C PAP ON, VOIDING CLEAR YELLOW URINE.
--- NOTE | 2019-12-29 15:20 | NUR ---
BERNIE CALLS TO CHECK ON STATUS OF PT AT THIS TIME. THIS RN REPORTS THAT PT'S HEART RATE HAS NOT BEEN BELOW 127 EVEN AFTER THE INCREASED CARDIZEM DOSAGE THIS MORNING. CT RESULTS RELAYED TO BERNIE WELL. DR GIBBS INSTRUCTS THIS RN TO CONTACT DR KRAFT TO CLARIFY TREATMENT PLAN.
--- NOTE | 2019-12-29 15:25 | NUR ---
DR KRAFT CONTACTED AT THIS TIME REGARDING THE TREATMENT PLAN FOR PT'S TACHYCARDIA. SW[facility] STATES, "WE WILL NOT BE TREATING THE PT'S TACHYCARDIA WITH ANYTHING MORE BECAUSE HIS HEART RATE DROPPED RAPIDLY LAST TIME HE WAS TREATED. PLUS, IT DOES NO GOOD TO TRY TO TREAT UNTIL THE PT'S LUNG ISSUES HAVE BEEN RESOLVED." THIS RN THEN INFORMS DR KRAFT OF PT'S CT RESULTS AND PT'S HISTORY OF COPD AND LUNG SCARRING. THIS RN ALSO NOTIFIES [facility] THAT PT IS CLOSE TO BASELINE ON HIS O2 NEEDS. PT IS NOT ON 4L HF NC. SWAPNIL STATES, "I WILL NOT BE TREATING THE PT WITH ANYTHING FURTHER AT THIS TIME." THIS RN THANKS FOR HIS TIME AND STATES THAT SHE WILL RELAY THE TREATMENT PLAN TO DR. GIBBS.
[2019-12-29] MEDS: TAMSULOSIN 0.4 MG (FLOMAX) CAP PO SCH (17:21)
--- NOTE | 2019-12-29 17:32 | Cardiology Progress Note ---
Cardiology SOAP Progress Note Objective: I&O/Vital Signs 12/29/19 12/29/19 12/29/19 12/29/19 06:59 07:25 08:00 08:00 Pulse 126 128 Resp 20 B/P (MAP) 133/76 (95) Pulse Ox 96 95 O2 Delivery NIV CPAP Vapotherm Vapotherm O2 Flow Rate 8.00 20.00 20.00 50.00 FiO2 55 12/29/19 12/29/19 12/29/19 12/29/19 10:02 10:26 12:20 12:26 Temp 36.2 Pulse 120 127 127 Resp 20 B/P (MAP) 123/90 (101) Pulse Ox 98 O2 Delivery Vapotherm High Flow N/C O2 Flow Rate 5.00 6.00 96.00 12/29/19 12/29/19 12/29/19 12/29/19 13:19 13:21 15:26 16:00 Temp 36.6 Pulse 127 127 Resp 19 B/P (MAP) 143/110 (121) Pulse Ox 96 100 97 O2 Delivery High Flow N/C High Flow N/C Nasal Cannula High Flow N/C O2 Flow Rate 6.00 6.00 4.00 6.00 96.00 96.00 12/29/19 00:00 Intake Total 1700 ml Output Total 3325 ml Balance -1625 ml Weight (Pounds): 251 Weight (Ounces): 0.8 Weight (Calculated Kilograms): 112.040465 Constitutional: AAO x 3 Respiratory: other (decreased breath sounds bilaterally.) Cardiovascular: regular rate-rhythm, S1 and S2 Gastrointestional: soft, round, audible bowel sounds Extremities: normal range of motion, non-tender, normal inspection, pedal edema Neurologic/Psychiatric: no motor/sensory deficits, alert, normal mood/affect, oriented x 3 Skin: normal color, warm/dry Results/Procedures: Labs Laboratory Tests 12/29/19 02:08: White Blood Count 9.3, Red Blood Count 4.51, Hemoglobin 14.2, Hematocrit 44, Mean Corpuscular Volume 97, Mean Corpuscular Hemoglobin 32, Mean Corpuscular Hemoglobin Concent 33, Red Cell Distribution Width 14.9H, Platelet Count 220, Mean Platelet Volume 9.8, Immature Granulocyte % (Auto) 0, Neutrophils (%) (Auto) 88H, Lymphocytes (%) (Auto) 4L, Monocytes (%) (Auto) 7, Eosinophils (%) (Auto) 0, Basophils (%) (Auto) 0, Neutrophils # (Auto) 8.2H, Lymphocytes # (Auto) 0.4L, Monocytes # (Auto) 0.7, Eosinophils # (Auto) 0.0, Basophils # (Auto) 0.0, Immature Granulocyte # (Auto) 0.0, Sodium Level 140, Potassium Level 3.5L, Chloride Level 100, Carbon Dioxide Level 26, Anion Gap 14, Blood Urea Nitrogen 33H, Creatinine 1.12, Estimat Glomerular Filtration Rate > 60, BUN/Creatinine Ratio 29, Glucose Level 138H, Calcium Level 9.2, Phosphorus Level 3.9, Magnesium Level 2.2 Microbiology 12/25/19 MRSA Screen - Final, Complete MRSA not isolated 12/23/19 Urine Culture - Final, Complete NO GROWTH 12/23/19 Blood Culture - Final, Complete No growth A/P: Assessment/Dx: Acute respiratory failure Paroxysmal atrial flutter Pneumonia Hyperlipidemia Plan: Shortness of breath, acute on chronic respiratory failure, improving slowly, off Vapotherm. On high flow oxygen. Bilateral pneumonia, receiving antibiotics, managed by Dr. Jackson Paroxysmal atrial fibrillation/flutter, had ablation done in April 2019. Had episode of atrial flutter with rapid ventricular response, electrical cardioversion on December 25, 2019, patient went back to atrial flutter. I gave him one dose of amiodarone IV. On sotalol 80 mg twice a day. Changing to multaq 400 mg twice a day. On Cardizem 180 mg in the morning and 120 mg at night. Nothing by mouth after midnight and possible cardioversion in the morning. The other option is digoxin. I have discussed at length with the nursing staff and Dr. Pruitt that it is unlikely that the patient will remain in sinus rhythm for very long. He has significant underlying lung disease and hypoxemia, and therefore will have baseline tachycardia. The patient understands. Chest pain, nonspecific etiology, Stress test done July 2018 revealed no is chemia or infarct. Probably secondary to hypoxemia and tachycardia, underlying coronary artery disease cannot be excluded, heart defect enzymes were negative. Continue to monitor History of mitral valve repair with annuloplasty ring [place] [address] Dean, has been asymptomatic, last echocardiogram was done in November 2018 showing ejection fraction 55-65 percent, left atrium 5.4 cm, the mitral valve has some deterioration compared to the previous study. I will evaluate 2-D echo [id number] score is 3, yearly risk of stroke without oral anticoagulation is 3.2 percent. Maintained on Eliquis. Continue to monitor. 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 Ibrahim at [facility], had ablation with Dr Pratt in April 2019, continue on sotalol for now and monitor Hypertension, monitor blood pressure while on diltiazem drip and oral in addition to sotalol Hyperlipidemia, continue to monitor lipids Hemochromatosis- followed by Dr. Lynn. History of heart catheterization done in 2009 and reported to have no significant obstructive disease in his coronaries, continue to monitor no changes are recommended History of syncope after the heart catheterization of unknown etiology. Diabetes mellitus, controlled by diet, followed and managed by primary care physician COPD/Obstructive sleep apnea use C Pap at night, followed and managed by Dr. Jackson Sjogermari syndrome, fibromyalgia, spinal stenosis, osteoporosis, osteoarthritis, left elbow ulnar nerve release, carpal tunnel release, bilateral inguinal hernia repair Thank you for your consultation. Please call me if you have any questions. Marco Pratt MD, FACP, FACC, FSCAI, FHRS, CCDS Interventional Cardiology Cardiac Electrophysiology Vascular Medicine and Endovascular Interventions Focused Exam Time of Focused Exam: 15:39 Omar PRATT MD Dec 29, 2019 17:32
--- NOTE | 2019-12-29 20:02 | Progress Note ---
Subjective Subjective Date Seen by Provider: Dec 29, 2019 Time Seen by Provider: 08:20 PT IS ON CARDIAC STEP DOWN - PT REPORTS THAT HE FEELS BETTER TODAY- HE IS WEARING HIS BIPAP MASK WITH VAPOTHERM. HE STATES THAT HE FEELS LIKE HE HAS GOTTEN SOME OF THE EXCESSIVE FLUID OUT OF HIS BODY AND THAT IS MAKING HIM BREATHE EASIER. HE DOES NOTE THAT HE CAN FEEL HIS RAPID HEART BEAT AND IT IS EXHAUSTING. Review of Systems General: No Chills, No Night Sweats; Fatigue, Malaise; No Appetite, No Other HEENT: No Head Aches, No Visual Changes, No Eye Pain, No Ear Pain, No Dysphasia, No Sinus Congestion, No Post Nasal Drip, No Sore Throat, No Other Pulmonary: Dyspnea; No Cough, No Pleuritic Chest Pain, No Other Cardiovascular: Other (SENSATION OF RAPID HEART BEAT); No: Chest Pain, Palpitations, Orthopnea, Paroxysmal Noc. Dyspnea, Edema Gastrointestinal: No: Diarrhea, Constipation Genitourinary: No Dysuria; Frequency Neurological: Weakness; No: Confusion All Other Systems Reviewed All Other Systems Reviewed: Yes Objective Exam Vital Signs Vital Signs - First Documented 12/23/19 12/23/19 12/23/19 13:40 13:42 20:21 Temp 35.4 Pulse 106 Resp 26 B/P (MAP) 121/89 (100) Pulse Ox 86 O2 Delivery Room Air O2 Flow Rate 15.00 FiO2 40 Capillary Refill : Less Than 3 Seconds General Appearance: No Apparent Distress, WD/WN Eyes: Bilateral Eye Normal Inspection, Bilateral Eye PERRL, Bilateral Eye EOMI HEENT: PERRL/EOMI, Pharynx Normal Neck: Supple Respiratory: Crackles (IMPROVING - BUT PRESENT CRACKLES IN BASES), Decreased Breath Sounds Cardiovascular: Systolic Murmur, Gallop/S4, Irregularly Irregular, Tachycardia Gastrointestinal: Normal Bowel Sounds, Non Tender, Soft Rectal: Deferred Back: No CVA Tenderness Extremity: Non Tender, No Calf Tenderness, Pedal Edema (TRACE) Neurologic/Psychiatric: Alert, Oriented x3, No Motor/Sensory Deficits, Normal 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/Affect, 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 Norm as Tested Skin: Normal Color, Warm/Dry Lymphatic: No Adenopathy Results Lab Laboratory Tests 12/29/19 02:08: White Blood Count 9.3, Red Blood Count 4.51, Hemoglobin 14.2, Hematocrit 44, Mean Corpuscular Volume 97, Mean Corpuscular Hemoglobin 32, Mean Corpuscular Hemoglobin Concent 33, Red Cell Distribution Width 14.9H, Platelet Count 220, M patricia Platelet Volume 9.8, Immature Granulocyte % (Auto) 0, Neutrophils (%) (Auto) 88H, Lymphocytes (%) (Auto) 4L, Monocytes (%) (Auto) 7, Eosinophils (%) (Auto) 0, Basophils (%) (Auto) 0, Neutrophils # (Auto) 8.2H, Lymphocytes # (Auto) 0.4L, Monocytes # (Auto) 0.7, Eosinophils # (Auto) 0.0, Basophils # (Auto) 0.0, Immature Granulocyte # (Auto) 0.0, Sodium Level 140, Potassium Level 3.5L, Chloride Level 100, Carbon Dioxide Level 26, Anion Gap 14, Blood Urea Nitrogen 33H, Creatinine 1.12, Estimat Glomerular Filtration Rate > 60, BUN/Creatinine Ratio 29, Glucose Level 138H, Calcium Level 9.2, Phosphorus Level 3.9, Magnesium Level 2.2 Microbiology 12/25/19 MRSA Screen - Final, Complete MRSA not isolated 12/23/19 Urine Culture - Final, Complete NO GROWTH 12/23/19 Blood Culture - Final, Complete No growth Assessment/Plan Assessment/Plan Assessment and Plan ACUTE RESPIRATORY FAILURE - IMPROVING AND PT IS OFF OF CPAP CONTINUOUSLY AND ON VAPOTHERM WITH PLANS FOR WEANING DOWN MEDICATION - DISCUSSED PT WITH DR. HARVEY - WE ARE GOING TO WEAN HIM DOWN ON THE OXYGEN - I HAVE ORDERED A CT OF THE CHEST TO MAKE SURE THAT WE ARE NOT MISSING SOMETHING OCCULT IN HIS CHEST DUE TO THE PULMONARY FIBROSIS AND EMPHYSEMA LIMITING THE IMAGING FROM XRAYS. BILATERAL PNEUMONIA - PT ON ZOSYN CONTINUE WITH CURRENT MANAGEMENT, MONITOR SERIAL CHEST XRAYS AFIB WITH RVR - PT HAS CONVERTED - DEFER TO CARDIOLOGY - PERSISTENT TACHYCARDIA - WILL INCREASE CARDIZEM TO 180MG THIS MORNING AND WILL DISCUSS WITH CARDIOLOGY ONCE I GET BACK THE CT SCAN IF THERE IS NOT ANY EVIDENCE OF WORSENING PNEUMONIA OR PLEURAL EFFUSIONS, WE NEED TO GET HIS HEART RATE IMPROVED SO THAT HE CAN MORE EASILY BE TRANSITIONED TO HOME. REALISTICALLY FEAROLL CANNOT GO HOME WITH A HEART RATE IN THE 120 -130'S RESTING BECAUSE HE WILL BE MORE EXHAUSTED, UNABLE TO PARTICIPATE IN IADLS AND ADLS AND WILL JUST BOUCE RIGHT BACK INTO THE HOSPITAL. COPD EXACERBATION - ON IV STEROIDS, WILL WEAN TO ORAL MEDICATION - CONTINUE WITH HOME REGIMEN ACUTE ON CHRONIC CONGESTIVE FAILURE - DUE TO AFIB - SHOULD IMPROVE HIS AFIB IMPROVES AND WITH IV LASIX. Clinical Quality Measures DVT/VTE Risk/Contraindication: Risk Factor Score Per Nursin RFS Level Per Nursing on Admit: 4+=Very High REIJ GIBBS MD Dec 29, 2019 20:02
[2019-12-29] MEDS: DRONEDARONE TABLET 400 MG TABLET PO SCH (21:29)
[2019-12-29] MEDS: dilTIAZem120 MG (CARDIZEM CD) CAP PO SCH (21:29)
[2019-12-29] MEDS: ALPRAZolam 0.25 MG (XANAX) TAB PO PRN (21:29)
[2019-12-29] MEDS ORDERED: RT-ALBUTEROL/IPRATROPIUM 3 ML (DUONEB) VIAL INH PRN (22:00)
[2019-12-30] VITALS (10 sets, daily range): BP systolic 106–153; BP diastolic 80–96
[2019-12-30 04:37] LABS: BASOPHILS % (AUTO) 0 % (0-10); EOSINOPHILS % (AUTO) 0 % (0-10); HEMATOCRIT 47 % (40-54); HEMOGLOBIN 14.8 g/dL (13.3-17.7); LYMPHOCYTES # (AUTO) 0.4 10^3/uL (1.0-4.0); LYMPHOCYTES % (AUTO) 5 % (12-44); MEAN CORPUSCULAR HEMOGLOBIN 31 pg (25-34); MEAN CORPUSCULAR HGB CONC 32 g/dL (32-36); MEAN CORPUSCULAR VOLUME 97 fL (80-99); MEAN PLATELET VOLUME 9.6 fL (9.0-12.2); MONOCYTES # (AUTO) 0.6 10^3/uL (0.0-1.0); MONOCYTES % (AUTO) 6 % (0-12); NEUTROPHILS # (AUTO) 8.3 10^3/uL (1.8-7.8); NEUTROPHILS % (AUTO) 89 % (42-75); PLATELET COUNT 224 10^3/uL (130-400); WHITE BLOOD COUNT 9.4 10^3/uL (4.3-11.0)
[2019-12-30 04:53] LABS: CHLORIDE 104 MMOL/L (98-107); POTASSIUM 3.5 MMOL/L (3.6-5.0); SODIUM 143 MMOL/L (135-145)
[2019-12-30 04:54] LABS: CALCIUM 9.1 MG/DL (8.5-10.1)
[2019-12-30 04:55] LABS: GLUCOSE 156 MG/DL (70-105)
[2019-12-30 04:56] LABS: CARBON DIOXIDE 26 MMOL/L (21-32)
[2019-12-30 04:58] LABS: PHOSPHORUS 3.4 MG/DL (2.3-4.7)
[2019-12-30 04:59] LABS: CREATININE SERUM 0.95 MG/DL (0.60-1.30); GFR ESTIMATED > 60
[2019-12-30 05:00] LABS: BUN/CREATININE RATIO 32
[2019-12-30 05:01] LABS: MAGNESIUM 2.5 MG/DL (1.6-2.4)
--- NOTE | 2019-12-30 05:28 | Diagnostic Imaging Report ---
Indication: Respiratory failure Portable chest 3:19 AM There are postoperative changes from median sternotomy. There are coarse interstitial infiltrates in the lungs. There is no appreciable effusion or pneumothorax. IMPRESSION: Coarse diffuse interstitial infiltrates in the lungs with some patchy areas of peripheral consolidation at the periphery. No change in appearance of chest compared to the previous day. Dictated by: Dictated on workstation # [id number]
[2019-12-30] MEDS: PIPERACILLIN/TAZOBACTAM (BULK) 4.5 GM in NS (IVPB) 100 ML IV SCH ×3 (06:30→20:10)
[2019-12-30] MEDS: methylPREDNISolone 40 MG/ML (Solu-MEDROL) VIAL IV SCH ×2 (06:30→17:57)
[2019-12-30] MEDS: PANTOPRAZOLE 40 MG (PROTONIX) TAB PO SCH (06:30)
[2019-12-30] MEDS: LACTOBACILLUS ACIDOPHILUS (PROBIOTIC) CAPSULE PO SCH ×3 (08:24→17:57)
[2019-12-30] MEDS: SPIRONOLACTONE 25 MG (ALDACTONE) TAB PO SCH (09:00)
[2019-12-30] MEDS: DRONEDARONE TABLET 400 MG TABLET PO SCH ×2 (09:00→20:10)
--- NOTE | 2019-12-30 09:05 | Progress Note ---
Subjective Subjective Date Seen by Provider: Dec 30, 2019 Time Seen by Provider: 08:30 PT IS ON CARDIAC STEP DOWN - PT REPORTS THAT HE FEELS BETTER TODAY- HE IS WEARING HIS BIPAP MASK WITH 4 LITERS NC. HE REPORTS THAT HE IS BREATHING ABOUT THE SAME, BUT STILL CAN FEEL HIS HEART POUNDING. HE DENIES CHEST PAIN, SHORTNESS OF BREATH BEYOND USUAL WHEN SEATED, MORE SHORT OF BREATH WITH MOVEMENT. Review of Systems General: No Chills, No Night Sweats; Fatigue, Malaise; No Appetite, No Other HEENT: No Head Aches, No Visual Changes, No Eye Pain, No Ear Pain, No Dysphasia, No Sinus Congestion, No Post Nasal Drip, No Sore Throat, No Other Pulmonary: Dyspnea; No Cough, No Pleuritic Chest Pain, No Other Cardiovascular: Other (SENSATION OF RAPID HEART BEAT); No: Chest Pain, Palpitations, Orthopnea, Paroxysmal Noc. Dyspnea, Edema Gastrointestinal: No: Diarrhea, Constipation Genitourinary: No Dysuria; Frequency Neurological: Weakness; No: Confusion All Other Systems Reviewed All Other Systems Reviewed: Yes Objective Exam Vital Signs Vital Signs - First Documented 12/24/19 12/24/19 00:05 04:11 Temp 36.3 Pulse 138 Resp 22 B/P (MAP) 118/79 (92) Pulse Ox 99 O2 Delivery High Flow N/C O2 Flow Rate 7.00 FiO2 35 Capillary Refill : Less Than 3 Seconds General Appearance: No Apparent Distress, WD/WN Eyes: Bilateral Eye Normal Inspection, Bilateral Eye PERRL, Bilateral Eye EOMI HEENT: PERRL/EOMI, Pharynx Normal Neck: Supple Respiratory: Crackles (IMPROVING - BUT PRESENT CRACKLES IN BASES), Decreased Breath Sounds Cardiovascular: Systolic Murmur, Gallop/S4, Irregularly Irregular, Tachycardia Gastrointestinal: Normal Bowel Sounds, Non Tender, Soft Rectal: Deferred Back: No CVA Tenderness Extremity: Non Tender, No Calf Tenderness, Pedal Edema (TRACE) Neurologic/Psychiatric: Alert, Oriented x3, No Motor/Sensory Deficits, Normal 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/Affect, 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 Norm as Tested Skin: Normal Color, Warm/Dry Lymphatic: No Adenopathy Results Lab Laboratory Tests 12/30/19 04:13: White Blood Count 9.4, Red Blood Count 4.79, Hemoglobin 14.8, Hematocrit 47, Mean Corpuscular Volume 97, Mean Corpuscular Hemoglobin 31, Mean Corpuscular Hemoglobin Concent 32, Red Cell Distribution Width 14.9H, Platelet Count 224, Mean Platelet Volume 9.6, Immature Granulocyte % (Auto) 0, Neutrophils (%) (Auto) 89H, Lymphocytes (%) (Auto) 5L, Monocytes (%) (Auto) 6, Eosinophils (%) (Auto) 0, Basophils (%) (Auto) 0, Neutrophils # (Auto) 8.3H, Lymphocytes # (Auto) 0.4L, Monocytes # (Auto) 0.6, Eosinophils # (Auto) 0.0, Basophils # (Auto) 0.0, Immature Granulocyte # (Auto) 0.0, Sodium Level 143, Potassium Level 3.5L, Chloride Level 104, Carbon Dioxide Level 26, Anion Gap 13, Blood Urea Nitrogen 30H, Creatinine 0.95, Estimat Glomerular Filtration Rate > 60, BUN/Creatinine Ratio 32, Glucose Level 156H, Calcium Level 9.1, Phosphorus Level 3.4, Magnesium Level 2.5H Microbiology 12/25/19 MRSA Screen - Final, Complete MRSA not isolated 12/23/19 Urine Culture - Final, Complete NO GROWTH 12/23/19 Blood Culture - Final, Complete No growth Assessment/Plan Assessment/Plan Assessment and Plan ACUTE RESPIRATORY FAILURE - IMPROVING AND PT IS OFF OF CONTINUOUS BIPAP AND WEANED OFF OF VAPOTHERM ON 12/29/2019 - NOW ON HIGH FLOW OXYGEN AT 4 LITERS NC. WITH OVERNIGHT USE OF HIS BIPAP - CT SCAN REPORT FOLLOWS: IMPRESSION: Extensive emphysema and presumed interstitial scarring which is likely the result of COPD. Mild increase in pleural thickening in the lateral right lower hemithorax is of uncertain significance and may be related to pleuritis or increasing fibrosis. No other definite acute abnormality or significant adverse change is noted. BILATERAL PNEUMONIA - PT ON ZOSYN CONTINUE WITH CURRENT MANAGEMENT, MONITOR SERIAL CHEST XRAYS - ANTIBIOTICS WILL FINISH 10 DAY COURSE ON 01/02/2020. AFIB WITH RVR - PT HAS CONVERTED - DEFER TO CARDIOLOGY - PERSISTENT TACHYCARDIA - MEDICATIONS MODIFIED - CARDIZEM DOSE CHANGED ON 12/29/2019 TO 180MG AM AND 120MG HS , SOTOLOL STOPPED AND PT RESTARTED ON MULTAQ 400MG BID. REALISTICALLY FEAROLL CANNOT GO HOME WITH A HEART RATE IN THE 120 -130'S RESTING BECAUSE HE WILL BE MORE EXHAUSTED, UNABLE TO PARTICIPATE IN IADLS AND ADLS AND WILL JUST BOUNCE RIGHT BACK INTO THE HOSPITAL. - DR. KRAFT HAS DISCUSSED WITH PT AND FAMILY IS IN AGREEMENT FOR CARDIOVERSION TODAY - 12/30/2019 COPD EXACERBATION - ON IV STEROIDS, WILL WEAN TO ORAL MEDICATION - CONTINUE WITH HOME REGIMEN ACUTE ON CHRONIC CONGESTIVE FAILURE - DUE TO AFIB - SHOULD IMPROVE HIS AFIB IMPROVES AND WITH IV LASIX. ANTICIPATE PT TO STAY IN HOSPITAL UNTIL THURSDAY OF NEXT WEEK Clinical Quality Measures DVT/VTE Risk/Contraindication: Risk Factor Score Per Nursin RFS Level Per Nursing on Admit: 4+=Very High REJI GIBBS MD Dec 30, 2019 09:05
[2019-12-30] MEDS: FUROSEMIDE 40 MG/4 ML INJ (LASIX) IVP SCH (11:38)
[2019-12-30] MEDS: RT-ALBUTEROL/IPRATROPIUM 3 ML (DUONEB) VIAL INH SCH ×3 (11:41→20:42)
[2019-12-30] MEDS: ADVAIR HFA 115/21 MCG INHALER 8 GM IH SCH ×2 (11:41→20:42)
--- NOTE | 2019-12-30 12:00 | NUR ---
Patient taken by dental lab technician for procedure at this time.
--- NOTE | 2019-12-30 12:10 | NUR ---
cardioversion done. anesthesia at bedside. 200J. patient returned to normal sinus rhythm. see ekg. 50mg propofol iv given by anesthesia.
[2019-12-30] MEDS ORDERED: proPOfol 200 MG/20 ML (DIPRIVAN) VIAL IV ONE (12:12)
--- NOTE | 2019-12-30 12:46 | NUR ---
patient returned to 507 on nc at 3l. alert and oriented x3. neuros within normal limits. report given to bedside nurse.
--- NOTE | 2019-12-30 13:06 | Cardiology Progress Note ---
Cardiology SOAP Progress Note Subjective: continues to have shortness of breath Objective: I&O/Vital Signs 12/30/19 12/30/19 12/30/19 12/30/19 04:00 07:00 07:06 09:00 Temp 36.1 36.5 Pulse 127 130 127 Resp 14 19 B/P (MAP) 132/96 (108) 135/95 (108) Pulse Ox 90 94 95 O2 Delivery NIV CPAP NIV CPAP High Flow N/C O2 Flow Rate 4.00 12/30/19 12/30/19 12/30/19 12/30/19 11:42 11:44 12:00 12:10 Pulse 64 131 Resp 20 18 B/P (MAP) 129/80 (96) 120/90 (100) Pulse Ox 94 94 94 95 O2 Delivery Nasal Cannula Nasal Cannula High Flow N/C OxyMask O2 Flow Rate 3.00 3.00 3.00 12/30/19 12/30/19 12/30/19 12:15 12:30 12:45 Pulse 65 61 57 Resp 18 18 18 B/P (MAP) 116/80 (92) 110/84 (93) 106/94 (98) Pulse Ox 95 95 94 O2 Delivery OxyMask Nasal Cannula Nasal Cannula O2 Flow Rate 3.00 3.00 12/30/19 00:00 Intake Total 1600 ml Output Total 2750 ml Balance -1150 ml Weight (Pounds): 251 Weight (Ounces): 0.8 Weight (Calculated Kilograms): 112.219453 Constitutional: AAO x 3 Respiratory: respiratory distress, other (decreased breath sounds bilaterally.) Cardiovascular: regular rate-rhythm, tachycardia, S1 and S2 Gastrointestional: soft, round, audible bowel sounds Extremities: normal range of motion, non-tender, normal inspection, pedal edema Neurologic/Psychiatric: no motor/sensory deficits, alert, normal mood/affect, oriented x 3 Skin: normal color, warm/dry Results/Procedures: Labs Laboratory Tests 12/30/19 04:13: White Blood Count 9.4, Red Blood Count 4.79, Hemoglobin 14.8, Hematocrit 47, Mean Corpuscular Volume 97, Mean Corpuscular Hemoglobin 31, Mean Corpuscular Hemoglobin Concent 32, Red Cell Distribution Width 14.9H, Platelet Count 224, Mean Platelet Volume 9.6, Immature Granulocyte % (Auto) 0, Neutrophils (%) (Auto) 89H, Lymphocytes (%) (Auto) 5L, Monocytes (%) (Auto) 6, Eosinophils (%) (Auto) 0, Basophils (%) (Auto) 0, Neutrophils # (Auto) 8.3H, Lymphocytes # (Auto) 0.4L, Monocytes # (Auto) 0.6, Eosinophils # (Auto) 0.0, Basophils # (Auto) 0.0, Immature Granulocyte # (Auto) 0.0, Sodium Level 143, Potassium Level 3.5L, Chloride Level 104, Carbon Dioxide Level 26, Anion Gap 13, Blood Urea Nitrogen 30H, Creatinine 0.95, Estimat Glomerular Filtration Rate > 60, BUN/Creatinine Ratio 32, Glucose Level 156H, Calcium Level 9.1, Phosphorus Level 3.4, Magnesium Level 2.5H Microbiology 12/25/19 MRSA Screen - Final, Complete MRSA not isolated 12/23/19 Urine Culture - Final, Complete NO GROWTH 12/23/19 Blood Culture - Final, Complete No growth A/P: Assessment/Dx: Acute respiratory failure atrial tachycardia with RVR Pneumonia Hyperlipidemia Plan: Shortness of breath, acute on chronic respiratory failure, improving slowly, off Vapotherm. On high flow oxygen. Bilateral pneumonia, receiving antibiotics, managed by Dr. Jackson Paroxysmal atrial fibrillation/flutter, had ablation done in April 2019. Had episode of atrial flutter with rapid ventricular response, electrical cardioversion on December 25, 2019, patient went back to atrial flutter. 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 Changing to multaq 400 mg twice a day. On Cardizem 180 mg in the morning and 120 mg at night. Nothing by mouth after midnight and possible cardioversion in the morning. The other option is digoxin. I have discussed at length with the nursing staff and Dr. Pruitt that it is unlikely that the patient will remain in sinus rhythm for very long. He has significant underlying lung disease and hypoxemia, and therefore will have baseline tachycardia. The patient understands. Chest pain, nonspecific etiology, Stress test done July 2018 revealed no ischemia or infarct. Probably secondary to hypoxemia and tachycardia, underlying coronary artery disease cannot be excluded, heart defect enzymes were negative. Continue to monitor History of mitral valve repair with annuloplasty ring [place] [address] Dean, has been asymptomatic, last echocardiogram was done in November 2018 showing ejection fraction 55-65 percent, left atrium 5.4 cm, the mitral valve has some deterioration compared to the previous study. I will evaluate 2-D echo [id number] score is 3, yearly risk of stroke without oral anticoagulation is 3.2 percent. Maintained on Eliquis. Continue to monitor. 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 Ibrahim at [facility], had ablation with Dr Pratt in April 2019, continue on sotalol for now and monitor Hypertension, monitor blood pressure while on diltiazem drip and oral in addition to sotalol Hyperlipidemia, continue to monitor lipids Hemochromatosis- followed by Dr. Lynn. History of heart catheterization done in 2009 and reported to have no significant obstructive disease in his coronaries, continue to monitor no changes are recommended History of syncope after the heart catheterization of unknown etiology. Diabetes mellitus, controlled by diet, followed and managed by primary care physician COPD/Obstructive sleep apnea use C Pap at night, followed and managed by Dr. Jackson Sjogermari syndrome, fibromyalgia, spinal stenosis, osteoporosis, osteoarthritis, left elbow ulnar nerve release, carpal tunnel release, bilateral inguinal hernia repair Thank you for your consultation. Please call me if you have any questions. Marco Pratt MD, FACP, FACC, FSCAI, FHRS, CCDS Interventional Cardiology Cardiac Electrophysiology Vascular Medicine and Endovascular Interventions Focused Exam Time of Focused Exam: 15:39 Omar PRATT MD Dec 30, 2019 13:06
--- NOTE | 2019-12-30 13:07 | Cardioversion ---
Cardioversion PROCEDURE PHYSICIAN: Marco Pratt MD DATE OF PROCEDURE: 12/30/19 DIRECT EXTERNAL ELECTRICAL CARDIOVERSION: Indications: atrial tachycardia with rapid ventricular rate Preoperative diagnoses: atrial tachycardia with rapid ventricular rate Postoperative diagnosis: Sinus rhythm, Successful Electrical Cardioversion History: 79-year-old gentleman with severe COPD, oxygen dependent, pneumonia, on high flow oxygen. Resistant atrial tachycardia. Patient has been on uninterrupted oral anticoagulation therapy for at least a month. Anesthesia: By Anesthesia services Complications: None Specimen: None Contrast: 0 Flouroscopy: none Procedure Details: The patient was brought the bed laborer after informed consent was taken, all the risks and complications were explained including the risk of stroke. Electrical cardioversion was carried out with anesthesia support with propofol. 200 joules of synchronized shock was delivered through external patches which promptly restored sinus rhythm. The patient tolerated the procedure well. Conclusions: 1.Successful Cardioversion. 2.Continue oral anticoagulation and rate controlling agent. Marco Pratt MD, [facility] Cardiac Electrophysiology Omar PRATT MD Dec 30, 2019 13:07
--- NOTE | 2019-12-30 13:17 | Anesthesia-General Post-Op ---
MAC Patient Condition Mental Status/LOC: Same as Preop Cardiovascular: Satisfactory Nausea/Vomiting: Absent Respiratory: Satisfactory Pain: Controlled Complications: Absent Post Op Complications Complications None Follow Up Care/Instructions Patient Instructions None needed. Anesthesiology Discharge Order Discharge Order Patient is doing well, no complaints, stable vital signs, no apparent adverse anesthesia problems. No complications reported per nursing. FORTINO FELDMAN CRNA Dec 30, 2019 13:17
[2019-12-30] MEDS ORDERED: POTASSIUM CL 10MEQ/50ML IVPB 50 ML IV ONE (13:31)
[2019-12-30] MEDS: APIXABAN 5 MG (ELIQUIS) TABLET PO SCH ×2 (13:35→20:10)
[2019-12-30] MEDS: POTASSIUM CL 10MEQ/50ML IVPB 50 ML IV SCH ×2 (13:36→14:47)
[2019-12-30] MEDS: TAMSULOSIN 0.4 MG (FLOMAX) CAP PO SCH (17:57)
[2019-12-30] MEDS: dilTIAZem120 MG (CARDIZEM CD) CAP PO SCH (20:10)
[2019-12-31 03:37] LABS: BASOPHILS % (AUTO) 0 % (0-10); EOSINOPHILS % (AUTO) 0 % (0-10); HEMATOCRIT 47 % (40-54); HEMOGLOBIN 15.2 g/dL (13.3-17.7); LYMPHOCYTES # (AUTO) 0.4 10^3/uL (1.0-4.0); LYMPHOCYTES % (AUTO) 4 % (12-44); MEAN CORPUSCULAR HEMOGLOBIN 32 pg (25-34); MEAN CORPUSCULAR HGB CONC 32 g/dL (32-36); MEAN CORPUSCULAR VOLUME 98 fL (80-99); MONOCYTES # (AUTO) 0.6 10^3/uL (0.0-1.0); MONOCYTES % (AUTO) 5 % (0-12); NEUTROPHILS # (AUTO) 10.1 10^3/uL (1.8-7.8); NEUTROPHILS % (AUTO) 91 % (42-75); PLATELET COUNT 214 10^3/uL (130-400); WHITE BLOOD COUNT 11.2 10^3/uL (4.3-11.0)
[2019-12-31 03:51] LABS: CHLORIDE 103 MMOL/L (98-107); SODIUM 143 MMOL/L (135-145)
[2019-12-31 03:52] LABS: CALCIUM 9.2 MG/DL (8.5-10.1)
[2019-12-31 03:53] LABS: GLUCOSE 136 MG/DL (70-105)
[2019-12-31 03:54] LABS: CARBON DIOXIDE 26 MMOL/L (21-32)
[2019-12-31 03:56] LABS: CREATININE SERUM 1.02 MG/DL (0.60-1.30); GFR ESTIMATED > 60; PHOSPHORUS 3.6 MG/DL (2.3-4.7)
[2019-12-31 03:57] LABS: BUN/CREATININE RATIO 33
[2019-12-31 03:58] VITALS: BP 138/88
[2019-12-31 03:58] LABS: MAGNESIUM 2.7 MG/DL (1.6-2.4)
[2019-12-31] MEDS: PIPERACILLIN/TAZOBACTAM (BULK) 4.5 GM in NS (IVPB) 100 ML IV SCH ×3 (05:19→20:29)
[2019-12-31] MEDS: methylPREDNISolone 40 MG/ML (Solu-MEDROL) VIAL IV SCH (05:20)
[2019-12-31] MEDS: PANTOPRAZOLE 40 MG (PROTONIX) TAB PO SCH (05:25)
[2019-12-31] MEDS: RT-ALBUTEROL/IPRATROPIUM 3 ML (DUONEB) VIAL INH SCH ×4 (06:52→19:33)
[2019-12-31] MEDS: ADVAIR HFA 115/21 MCG INHALER 8 GM IH SCH ×2 (06:53→19:39)
[2019-12-31 08:00] VITALS: BP 128/77
--- NOTE | 2019-12-31 08:19 | Progress Note ---
Subjective Subjective Date Seen by Provider: Dec 31, 2019 Time Seen by Provider: 09:30 No overnight events- he was cardioverted yesterday- he feels better- he does not feel like his heart is racing now. He uses his CPAP at nighttime and if his oxygen saturation is 90% or less he will turn his oxygen up until he gets up to 94%. Review of Systems General: No Chills, No Night Sweats; Fatigue, Malaise; No Appetite, No Other HEENT: No Head Aches, No Visual Changes, No Eye Pain, No Ear Pain, No Dy sphasia, No Sinus Congestion, No Post Nasal Drip, No Sore Throat, No Other Pulmonary: Dyspnea; No Cough, No Pleuritic Chest Pain, No Other Cardiovascular: No: Chest Pain, Palpitations, Orthopnea, Paroxysmal Noc. Dyspnea, Edema Gastrointestinal: No: Diarrhea, Constipation Genitourinary: No Dysuria; Frequency Neurological: Weakness; No: Confusion All Other Systems Reviewed All Other Systems Reviewed: Yes Objective Exam Vital Signs Vital Signs Date Time Temp Pulse Resp B/P (MAP) Pulse Ox O2 Delivery O2 Flow Rate FiO2 12/31/19 07:00 55 12/31/19 06:54 90 NIV CPAP 3.00 12/31/19 03:58 35.9 60 16 138/88 (105) 94 NIV CPAP 12/31/19 01:00 60 12/30/19 23:20 36.0 62 16 134/87 (103) 94 NIV CPAP 12/30/19 20:45 94 Nasal Cannula 3.00 12/30/19 20:42 94 Nasal Cannula 3.00 12/30/19 20:10 98 High Flow N/C 4.00 12/30/19 19:47 36.4 71 21 153/91 (111) 98 Nasal Cannula 3.00 12/30/19 19:00 64 12/30/19 16:02 36.9 66 20 134/85 (101) 94 Nasal Cannula 3.00 12/30/19 13:00 57 12/30/19 12:45 57 18 106/94 (98) 94 Nasal Cannula 3.00 12/30/19 12:30 61 18 110/84 (93) 95 Nasal Cannula 3.00 12/30/19 12:15 65 18 116/80 (92) 95 OxyMask 12/30/19 12:10 131 18 120/90 (100) 95 OxyMask 12/30/19 12:00 64 20 129/80 (96) 94 High Flow N/C 3.00 12/30/19 11:44 94 Nasal Cannula 3.00 12/30/19 11:42 94 Nasal Cannula 3.00 12/30/19 09:00 95 High Flow N/C 4.00 I & O 12/31/19 07:00 Intake Total 1590 ml Output Total 1750 ml Balance -160 ml General Appearance: No Apparent Distress, WD/WN Eyes: Bilateral Eye Normal Inspection, Bilateral Eye PERRL, Bilateral Eye EOMI HEENT: PERRL/EOMI, Pharynx Normal Neck: Supple Respiratory: Decreased Breath Sounds Cardiovascular: Regular Rate, Rhythm, Systolic Murmur Gastrointestinal: Normal Bowel Sounds, Non Tender, Soft Rectal: Deferred Back: No CVA Tenderness Extremity: Non Tender, No Calf Tenderness, Pedal Edema (TRACE) Neurologic/Psychiatric: Alert, Oriented x3, No Motor/Sensory Deficits, Normal Mood/Affect, 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 Norm as Tested Skin: Normal Color, Warm/Dry Lymphatic: No Adenopathy Results Lab Laboratory Tests 12/31/19 02:50: White Blood Count 11.2H, Red Blood Count 4.82, Hemoglobin 15.2, Hematocrit 47, Mean Corpuscular Volume 98, Mean Corpuscular Hemoglobin 32, Mean Corpuscular Hemoglobin Concent 32, Red Cell Distribution Width 15.1H, Platelet Count 214, Mean Platelet Volume 10.0, Immature Granulocyte % (Auto) 1, Neutrophils (%) (Auto) 91H, Lymphocytes (%) (Auto) 4L, Monocytes (%) (Auto) 5, Eosinophils (%) (Auto) 0, Basophils (%) (Auto) 0, Neutrophils # (Auto) 10.1H, Lymphocytes # (Auto) 0.4L, Monocytes # (Auto) 0.6, Eosinophils # (Auto) 0.0, Basophils # (Auto) 0.0, Immature Granulocyte # (Auto) 0.1, Sodium Level 143, Potassium Level 4.0, Chloride Level 103, Carbon Dioxide Level 26, Anion Gap 14, Blood Urea Nitrogen 34H, Creatinine 1.02, Estimat Glomerular Filtration Rate > 60, BUN/Creatinine Ratio 33, Glucose Level 136H, Calcium Level 9.2, Phosphorus Level 3.6, Magnesium Level 2.7H Microbiology 12/25/19 MRSA Screen - Final, Complete MRSA not isolated 12/23/19 Urine Culture - Final, Complete NO GROWTH 12/23/19 Blood Culture - Final, Complete No growth Assessment/Plan Assessment/Plan Assessment and Plan 12/31/19- completes zosyn on 01/02/20 for bilateral pneumonia. -Continue monitoring heart rate. cardioverted 12/30/19- currently heart rate is in 60s. -continue on multaq, eliquis, diltiazem, spironolactone. -will need to be on steroids by mouth on discharge. COPD exacerbation has improved. Dispo: planning for discharge early next week. Problems: (1) Paroxysmal atrial fibrillation (2) Acute and chronic respiratory failure with hypoxia (3) Pneumonia Qualifiers: Qualified Codes: J18.9 - Pneumonia, unspecified organism (4) COPD exacerbation Clinical Quality Measures DVT/VTE Risk/Contraindication: Risk Factor Score Per Nursin RFS Level Per Nursing on Admit: 4+=Very High JOSE COATES MD Dec 31, 2019 08:19
[2019-12-31] MEDS: LACTOBACILLUS ACIDOPHILUS (PROBIOTIC) CAPSULE PO SCH ×3 (09:10→18:45)
[2019-12-31] MEDS: SPIRONOLACTONE 25 MG (ALDACTONE) TAB PO SCH (09:11)
[2019-12-31] MEDS: DRONEDARONE TABLET 400 MG TABLET PO SCH ×2 (09:11→20:29)
[2019-12-31] MEDS: FUROSEMIDE 40 MG/4 ML INJ (LASIX) IVP SCH (09:11)
[2019-12-31] MEDS: APIXABAN 5 MG (ELIQUIS) TABLET PO SCH ×2 (09:11→20:29)
--- NOTE | 2019-12-31 10:03 | Diagnostic Imaging Report ---
INDICATION: Respiratory failure. Comparison made with prior examination of 12/30/2019. FINDINGS: There is cardiomegaly. There are patchy bibasilar infiltrates. No previous median sternotomy. No pneumothorax. Mediastinum is unremarkable. IMPRESSION: Patchy bibasilar infiltrates. Cardiomegaly and some central pulmonary venous congestion. Dictated by: Dictated on workstation # [id number]
--- NOTE | 2019-12-31 11:00 | NUR ---
PT ARRIVED TO FLOOR VIA BED FROM CARDIAC STEP DOWN, PT DENIES NEEDS AT THIS TIME. CALL LIGHT IN REACH, WILL CONTINUE TO MONITOR.
[2019-12-31 12:10] VITALS: BP 140/81
--- NOTE | 2019-12-31 15:26 | Cardiology Progress Note ---
Cardiology SOAP Progress Note Subjective: Improved cardiac condition. Objective: I&O/Vital Signs 12/31/19 12/31/19 12/31/19 12/31/19 03:58 06:54 07:00 08:00 Temp 35.9 36.3 Pulse 60 55 66 Resp 16 20 B/P (MAP) 138/88 (105) 128/77 (94) Pulse Ox 94 90 94 O2 Delivery NIV CPAP NIV CPAP NIV CPAP O2 Flow Rate 3.00 12/31/19 12/31/19 12/31/19 12/31/19 08:00 12:00 12:10 12:41 Temp 36.3 Pulse 67 Resp 20 B/P (MAP) 140/81 (100) Pulse Ox 98 98 96 O2 Delivery High Flow N/C Nasal Cannula Nasal Cannula O2 Flow Rate 5.00 5.00 5.00 12/31/19 00:00 Intake Total 1170 ml Output Total 1300 ml Balance -130 ml Weight (Pounds): 251 Weight (Ounces): 0.8 Weight (Calculated Kilograms): 112.868296 Constitutional: AAO x 3 Respiratory: respiratory distress, other (decreased breath sounds bilaterally.) Cardiovascular: regular rate-rhythm, S1 and S2 Gastrointestional: soft, round, audible bowel sounds Extremities: normal range of motion, non-tender, normal inspection, pedal edema Neurologic/Psychiatric: no motor/sensory deficits, alert, normal mood/affect, oriented x 3 Skin: normal color, warm/dry Results/Procedures: Labs Laboratory Tests 12/31/19 02:50: White Blood Count 11.2H, Red Blood Count 4.82, Hemoglobin 15.2, Hematocrit 47, Mean Corpuscular Volume 98, Mean Corpuscular Hemoglobin 32, Mean Corpuscular Hemoglobin Concent 32, Red Cell Distribution Width 15.1H, Platelet Count 214, Mean Platelet Volume 10.0, Immature Granulocyte % (Auto) 1, Neutrophils (%) (Auto) 91H, Lymphocytes (%) (Auto) 4L, Monocytes (%) (Auto) 5, Eosinophils (%) (Auto) 0, Basophils (%) (Auto) 0, Neutrophils # (Auto) 10.1H, Lymphocytes # (Auto) 0.4L, Monocytes # (Auto) 0.6, Eosinophils # (Auto) 0.0, Basophils # (Auto) 0.0, Immature Granulocyte # (Auto) 0.1, Sodium Level 143, Potassium Level 4.0, Chloride Level 103, Carbon Dioxide Level 26, Anion Gap 14, Blood Urea Nitrogen 34H, Creatinine 1.02, Estimat Glomerular Filtration Rate > 60, BUN/Creatinine Ratio 33, Glucose Level 136H, Calcium Level 9.2, Phosphorus Level 3.6, Magnesium Level 2.7H Microbiology 12/25/19 MRSA Screen - Final, Complete MRSA not isolated 12/23/19 Urine Culture - Final, Complete NO GROWTH 12/23/19 Blood Culture - Final, Complete No growth A/P: Assessment/Dx: Acute respiratory failure atrial tachycardia with RVR Pneumonia Hyperlipidemia Plan: Shortness of breath, acute on chronic respiratory failure, improving slowly, off Vapotherm. Improved oxygen requirement. Bilateral pneumonia, receiving antibiotics, managed by Dr. Jackson Paroxysmal atrial fibrillation/flutter, had ablation done in April 2019. Had episode of atrial flutter with rapid ventricular response, electrical card ioversion on December 25, 2019, patient went back to atrial flutter. 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 Changing to multaq 400 mg twice a day. On Cardizem 180 mg in the morning and 120 mg at night. Nothing by mouth after midnight and possible cardioversion in the morning. The other option is digoxin. I have discussed at length with the nursing staff and Dr. Pruitt that it is unlikely that the patient will remain in sinus rhythm for very long. He has significant underlying lung disease and hypoxemia, and therefore will have baseline tachycardia. The patient understands. Status post cardioversion on 12/30/2019. Currently in sinus rhythm. Patient will follow with Dr. Nur as an outpatient. Chest pain, nonspecific etiology, Stress test done July 2018 revealed no ischemia or infarct. Probably secondary to hypoxemia and tachycardia, underlying coronary artery disease cannot be excluded, heart defect enzymes were negative. Continue to monitor History of mitral valve repair with annuloplasty ring [place] [address] Dean, has been asymptomatic, last echocardiogram was done in November 2018 showing ejection fraction 55-65 percent, left atrium 5.4 cm, the mitral valve has some deterioration compared to the previous study. I will evaluate 2-D echo [id number] score is 3, yearly risk of stroke without oral anticoagulation is 3.2 percent. Maintained on Eliquis. Continue to monitor. Transient episode of nonsustained ventricular tachycardia occurred in the preoperative area in [facility] on November 01, 2014, evaluated by his own extension service specialist with Dr. Ibrahim at [facility], had ablation with Dr Pratt in April 2019, continue on sotalol for now and monitor Hypertension, monitor blood pressure while on diltiazem drip and oral in addition to sotalol Hyperlipidemia, continue to monitor lipids Hemochromatosis- followed by Dr. Lynn. History of heart catheterization done in 2009 and reported to have no significant obstructive disease in his coronaries, continue to monitor no changes are recommended History of syncope after the heart catheterization of unknown etiology. Diabetes mellitus, controlled by diet, followed and managed by primary care physician COPD/Obstructive sleep apnea use C Pap at night, followed and managed by Dr. Jackson Sjogermari syndrome, fibromyalgia, spinal stenosis, osteoporosis, osteoarthritis, left elbow ulnar nerve release, carpal tunnel release, bilateral inguinal hernia repair Thank you for your consultation. Please call me if you have any questions. Marco Pratt MD, FACP, FACC, FSCAI, FHRS, CCDS Interventional Cardiology Cardiac Electrophysiology Vascular Medicine and Endovascular Interventions Focused Exam Time of Focused Exam: 15:39 Omar PRATT MD Dec 31, 2019 15:26
[2019-12-31 16:00] VITALS: BP 120/72
[2019-12-31] MEDS ORDERED: dexAMETHasone 6 MG TAB (DECADRON) PO NR (18:00)
[2019-12-31] MEDS: TAMSULOSIN 0.4 MG (FLOMAX) CAP PO SCH (18:46)
[2019-12-31 19:54] VITALS: BP 114/69
[2019-12-31] MEDS: dilTIAZem120 MG (CARDIZEM CD) CAP PO SCH (20:29)
[2020-01-01] VITALS (7 sets, daily range): BP systolic 100–126; BP diastolic 69–81
[2020-01-01] MEDS: PIPERACILLIN/TAZOBACTAM (BULK) 4.5 GM in NS (IVPB) 100 ML IV SCH ×3 (05:28→20:18)
[2020-01-01] MEDS: predniSONE 20 MG TAB PO SCH (05:29)
[2020-01-01] MEDS: PANTOPRAZOLE 40 MG (PROTONIX) TAB PO SCH (05:29)
[2020-01-01 05:34] LABS: BASOPHILS % (AUTO) 0 % (0-10); EOSINOPHILS % (AUTO) 0 % (0-10); HEMATOCRIT 48 % (40-54); HEMOGLOBIN 15.3 g/dL (13.3-17.7); LYMPHOCYTES # (AUTO) 0.4 10^3/uL (1.0-4.0); LYMPHOCYTES % (AUTO) 3 % (12-44); MEAN CORPUSCULAR HEMOGLOBIN 32 pg (25-34); MEAN CORPUSCULAR HGB CONC 32 g/dL (32-36); MEAN CORPUSCULAR VOLUME 99 fL (80-99); MEAN PLATELET VOLUME 10.3 fL (9.0-12.2); MONOCYTES # (AUTO) 0.5 10^3/uL (0.0-1.0); MONOCYTES % (AUTO) 5 % (0-12); NEUTROPHILS # (AUTO) 9.8 10^3/uL (1.8-7.8); NEUTROPHILS % (AUTO) 91 % (42-75); PLATELET COUNT 201 10^3/uL (130-400); WHITE BLOOD COUNT 10.8 10^3/uL (4.3-11.0)
[2020-01-01 05:50] LABS: CHLORIDE 104 MMOL/L (98-107); POTASSIUM 3.9 MMOL/L (3.6-5.0); SODIUM 141 MMOL/L (135-145)
[2020-01-01 05:52] LABS: GLUCOSE 176 MG/DL (70-105)
[2020-01-01 05:54] LABS: CARBON DIOXIDE 22 MMOL/L (21-32)
[2020-01-01 05:56] LABS: CREATININE SERUM 0.81 MG/DL (0.60-1.30); GFR ESTIMATED > 60; PHOSPHORUS 3.2 MG/DL (2.3-4.7)
[2020-01-01 05:57] LABS: BUN/CREATININE RATIO 40
[2020-01-01 05:58] LABS: MAGNESIUM 2.5 MG/DL (1.6-2.4)
[2020-01-01 06:35] LABS: BAND NEUTROPHILS 1 %; LYMPHOCYTES % (MANUAL) 3 %; NEUTROPHILS % (MANUAL) 91 %
[2020-01-01 06:36] LABS: MICROCYTOSIS SLIGHT; MONOCYTES % (MANUAL) 4 %; POLYCHROMASIA SLIGHT; REACTIVE LYMPHOCYTES 1 %
[2020-01-01] MEDS: RT-ALBUTEROL/IPRATROPIUM 3 ML (DUONEB) VIAL INH SCH ×4 (07:18→20:53)
[2020-01-01] MEDS: ADVAIR HFA 115/21 MCG INHALER 8 GM IH SCH (07:18)
[2020-01-01] MEDS: SPIRONOLACTONE 25 MG (ALDACTONE) TAB PO SCH (08:26)
[2020-01-01] MEDS: DRONEDARONE TABLET 400 MG TABLET PO SCH ×2 (08:26→20:19)
[2020-01-01] MEDS: LACTOBACILLUS ACIDOPHILUS (PROBIOTIC) CAPSULE PO SCH ×3 (08:26→17:48)
[2020-01-01] MEDS: APIXABAN 5 MG (ELIQUIS) TABLET PO SCH ×2 (08:27→20:19)
[2020-01-01] MEDS: FUROSEMIDE 40 MG/4 ML INJ (LASIX) IVP SCH (08:27)
--- NOTE | 2020-01-01 10:15 | Progress Note ---
Subjective Subjective Date Seen by Provider: Jan 01, 2020 Time Seen by Provider: 10:11 No overnight events- He reports doing well and is looking forward to going home tomorrow. He walks without assistance. He is going to watch the [employer] game today but would also like to hear it- the remote speakers are not loud enough. Denies chest pain, palpitations. Review of Systems General: No Chills, No Night Sweats; Fatigue; No Malaise, No Appetite, No Other HEENT: No Head Aches, No Visual Changes, No Eye Pain, No Ear Pain, No Dysphasia, No Sinus Congestion, No Post Nasal Drip, No Sore Throat, No Other Pulmonary: No Dyspnea, No Cough, No Pleuritic Chest Pain, No Other Cardiovascular: No: Chest Pain, Palpitations, Orthopnea, Paroxysmal Noc. Dyspnea, Edema Gastrointestinal: No: Diarrhea, Constipation Genitourinary: No Dysuria; Frequency Neurological: Weakness; No: Confusion All Other Systems Reviewed All Other Systems Reviewed: Yes Objective Exam Vital Signs Vital Signs Date Time Temp Pulse Resp B/P (MAP) Pulse Ox O2 Delivery O2 Flow Rate FiO2 01/01/20 08:35 High Flow N/C 5.00 01/01/20 08:00 36.2 55 18 102/78 (86) 94 Nasal Cannula 5.00 01/01/20 07:18 98 Nasal Cannula 5.00 01/01/20 07:00 52 01/01/20 04:32 35.7 55 17 126/70 (88) 99 Nasal Cannula 5.00 01/01/20 01:00 53 01/01/20 00:17 35.6 56 19 100/80 (87) 98 Nasal Cannula 5.00 12/31/19 20:20 97 High Flow N/C 5.00 12/31/19 19:54 36.0 59 20 114/69 (84) 98 Nasal Cannula 5.00 12/31/19 19:37 98 Nasal Cannula 5.00 12/31/19 19:00 61 12/31/19 16:00 36.2 63 19 120/72 (88) 95 Nasal Cannula 5.00 12/31/19 12:41 67 12/31/19 12:10 36.3 20 140/81 (100) 96 Nasal Cannula 5.00 12/31/19 12:00 98 Nasal Cannula 5.00 I & O 01/01/20 07:00 Intake Total 2050 ml Output Total 1500 ml Balance 550 ml General Appearance: No Apparent Distress, WD/WN Eyes: Bilateral Eye Normal Inspection, Bilateral Eye PERRL, Bilateral Eye EOMI HEENT: PERRL/EOMI, Pharynx Normal Neck: Supple Respiratory: Decreased Breath Sounds Cardiovascular: Regular Rate, Rhythm, Systolic Murmur Gastrointestinal: Normal Bowel Sounds, Non Tender, Soft Rectal: Deferred Back: No CVA Tenderness Extremity: Non Tender, No Calf Tenderness, Pedal Edema (TRACE) Neurologic/Psychiatric: Alert, Oriented x3, No Motor/Sensory Deficits, Normal 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/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, 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 Skin: Normal Color, Warm/Dry Lymphatic: No Adenopathy Results Lab Laboratory Tests 01/01/20 05:02: White Blood Count 10.8, Red Blood Count 4.84, Hemoglobin 15.3, Hematocrit 48, Mean Corpuscular Volume 99, Mean Corpuscular Hemoglobin 32, Mean Corpuscular Hemoglobin Concent 32, Red Cell Distribution Width 15.2H, Platelet Count 201, Mean Platelet Volume 10.3, Immature Granulocyte % (Auto) 1, Neutrophils (%) (Auto) 91H, Lymphocytes (%) (Auto) 3L, Monocytes (%) (Auto) 5, Eosinophils (%) (Auto) 0, Basophils (%) (Auto) 0, Neutrophils # (Auto) 9.8H, Lymphocytes # (Auto) 0.4L, Monocytes # (Auto) 0.5, Eosinophils # (Auto) 0.0, Basophils # (Auto) 0.0, Immature Granulocyte # (Auto) 0.1, Neutrophils % (Manual) 91, Lymphocytes % (Manual) 3, Monocytes % (Manual) 4, Band Neutrophils 1, Reactive Lymphocytes 1, Polychromasia SLIGHT, Basophilic Stippling SLIGHT, Microcytosis SLIGHT, Sodium Level 141, Potassium Level 3.9, Chloride Level 104, Carbon Dioxide Level 22, Anion Gap 15H, Blood Urea Nitrogen 32H, Creatinine 0.81, Estimat Glomerular Filtration Rate > 60, BUN/Creatinine Ratio 40, Glucose Level 176H, Calcium Level 9.0, Phosphorus Level 3.2, Magnesium Level 2.5H Microbiology 12/25/19 MRSA Screen - Final, Complete MRSA not isolated 12/23/19 Urine Culture - Final, Complete NO GROWTH 12/23/19 Blood Culture - Final, Complete No growth Assessment/Plan Assessment/Plan Assessment and Plan 12/31/19- completes zosyn on 01/02/20 for bilateral pneumonia. -Continue monitoring heart rate. cardioverted 12/30/19- currently heart rate is in 60s. -continue on multaq, eliquis, diltiazem, spironolactone. -will need to be on steroids by mouth on discharge. COPD exacerbation has improved. 01/01/20- regular rhythm- pulse a little low in 50s. Pt asymptomatic. Pt is doing well breathing- currently on 3L oxygen NC. One time dose of 10mg dexamethasone po yesterday helping bridge from IV steroids to PO prednisone. Recommend a taper of prednisone since it will be greater than 7 days on steroids and he has COPD. Dispo: planning for discharge likely tomorrow. Problems: (1) Paroxysmal atrial fibrillation (2) Acute and chronic respiratory failure with hypoxia (3) Pneumonia Qualifiers: Qualified Codes: J18.9 - Pneumonia, unspecified organism (4) COPD exacerbation Clinical Quality Measures DVT/VTE Risk/Contraindication: Risk Factor Score Per Nursin RFS Level Per Nursing on Admit: 4+=Very High JOSE COATES MD Jan 01, 2020 10:15
--- NOTE | 2020-01-01 12:44 | Cardiology Progress Note ---
Cardiology SOAP Progress Note Subjective: Significantly improved clinically. Objective: I&O/Vital Signs 01/01/20 01/01/20 01/01/20 01/01/20 01:00 04:32 07:00 07:18 Temp 35.7 Pulse 53 55 52 Resp 17 B/P (MAP) 126/70 (88) Pulse Ox 99 98 O2 Delivery Nasal Cannula Nasal Cannula O2 Flow Rate 5.00 5.00 01/01/20 01/01/20 01/01/20 01/01/20 08:00 08:35 11:05 12:14 Temp 36.2 Pulse 55 60 Resp 18 B/P (MAP) 102/78 (86) Pulse Ox 94 96 O2 Delivery Nasal Cannula High Flow N/C Nasal Cannula O2 Flow Rate 5.00 5.00 3.00 12/31/19 23:59 Intake Total 1750 ml Output Total 1500 ml Balance 250 ml Weight (Pounds): 251 Weight (Ounces): 0.8 Weight (Calculated Kilograms): 112.110403 Constitutional: AAO x 3 Respiratory: respiratory distress, other (decreased breath sounds bilaterally.) Cardiovascular: regular rate-rhythm, S1 and S2 Gastrointestional: soft, round, audible bowel sounds Extremities: normal range of motion, non-tender, normal inspection, pedal edema Neurologic/Psychiatric: no motor/sensory deficits, alert, normal mood/affect, oriented x 3 Skin: normal color, warm/dry Results/Procedures: Labs Laboratory Tests 01/01/20 05:02: White Blood Count 10.8, Red Blood Count 4.84, Hemoglobin 15.3, Hematocrit 48, Mean Corpuscular Volume 99, Mean Corpuscular Hemoglobin 32, Mean Corpuscular Hemoglobin Concent 32, Red Cell Distribution Width 15.2H, Platelet Count 201, Mean Platelet Volume 10.3, Immature Granulocyte % (Auto) 1, Neutrophils (%) (Auto) 91H, Lymphocytes (%) (Auto) 3L, Monocytes (%) (Auto) 5, Eosinophils (%) (Auto) 0, Basophils (%) (Auto) 0, Neutrophils # (Auto) 9.8H, Lymphocytes # (Auto) 0.4L, Monocytes # (Auto) 0.5, Eosinophils # (Auto) 0.0, Basophils # (Auto) 0.0, Immature Granulocyte # (Auto) 0.1, Neutrophils % (Manual) 91, Lymphocytes % (Manual) 3, Monocytes % (Manual) 4, Band Neutrophils 1, Reactive Lymphocytes 1, Polychromasia SLIGHT, Basophilic Stippling SLIGHT, Microcytosis SLIGHT, Sodium Level 141, Potassium Level 3.9, Chloride Level 104, Carbon Dioxide Level 22, Anion Gap 15H, Blood Urea Nitrogen 32H, Creatinine 0.81, Estimat Glomerular Filtration Rate > 60, BUN/Creatinine Ratio 40, Glucose Level 176H, Calcium Level 9.0, Phosphorus Level 3.2, Magnesium Level 2.5H Microbiology 12/25/19 MRSA Screen - Final, Complete MRSA not isolated 12/23/19 Urine Culture - Final, Complete NO GROWTH 12/23/19 Blood Culture - Final, Complete No growth A/P: Assessment/Dx: Acute respiratory failure atrial tachycardia with RVR Pneumonia Hyperlipidemia Plan: Shortness of breath, acute on chronic respiratory failure, improving slowly, off Vapotherm. Improved oxygen requirement. Bilateral pneumonia, receiving antibiotics, managed by Dr. Jackson Paroxysmal atrial fibrillation/flutter, had ablation done in April 2019. Had episode of atrial flutter with rapid ventricular response, electrical cardioversion on December 25, 2019, patient went back to atrial flutter. 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 Changing to multaq 400 mg twice a day. On Cardizem 180 mg in the morning and 120 mg at night. Nothing by mouth after midnight and possible cardioversion in the morning. The other option is digoxin. I have discussed at length with the nursing staff and Dr. Pruitt that it is unlikely that the patient will remain in sinus rhythm for very long. He has significant underlying lung disease and hypoxemia, and therefore will have baseline tachycardia. The patient understands. Status post cardioversion on 12/30/2019. Currently in sinus rhythm. Patient will follow with Dr. Nur as an outpatient. Chest pain, nonspecific etiology, Stress test done July 2018 revealed no ischemia or infarct. Probably secondary to hypoxemia and tachycardia, underlying coronary artery disease cannot be excluded, heart defect enzymes were negative. Continue to monitor History of mitral valve repair with annuloplasty ring [place] [address] Dean, has been asymptomatic, last echocardiogram was done in November 2018 showing ejection fraction 55-65 percent, left atrium 5.4 cm, the mitral valve has some deterioration compared to the previous study. I will evaluate 2-D echo [id number] score is 3, yearly risk of stroke without oral anticoagulation is 3.2 percent. Maintained on Eliquis. Continue to monitor. Transient episode of nonsustained ventricular tachycardia occurred in the preoperative area in [facility] on November 01, 2014, evaluated by his own structural analyst with Dr. Ibrahim at [facility], had ablation with Dr Pratt in April 2019, continue on sotalol for now and monitor Hypertension, monitor blood pressure while on diltiazem drip and oral in addition to sotalol Hyperlipidemia, continue to monitor lipids Hemochromatosis- followed by Dr. Lynn. History of heart catheterization done in 2009 and reported to have no significant obstructive disease in his coronaries, continue to monitor no changes are recommended History of syncope after the heart catheterization of unknown etiology. Diabetes mellitus, controlled by diet, followed and managed by primary care physician COPD/Obstructive sleep apnea use C Pap at night, followed and managed by Dr. Jackson Sjogermari syndrome, fibromyalgia, spinal stenosis, osteoporosis, osteoarthritis, left elbow ulnar nerve release, carpal tunnel release, bilateral inguinal hernia repair Thank you for your consultation. Please call me if you have any questions. Marco Pratt MD, FACP, FACC, FSCAI, FHRS, CCDS Interventional Cardiology Cardiac Electrophysiology Vascular Medicine and Endovascular Interventions Focused Exam Time of Focused Exam: 15:39 Omar PRATT MD Jan 01, 2020 12:44
[2020-01-01] MEDS: TAMSULOSIN 0.4 MG (FLOMAX) CAP PO SCH (17:48)
[2020-01-01] MEDS: dilTIAZem120 MG (CARDIZEM CD) CAP PO SCH (20:19)
[2020-01-02 04:07] VITALS: BP 109/65
[2020-01-02] MEDS: PIPERACILLIN/TAZOBACTAM (BULK) 4.5 GM in NS (IVPB) 100 ML IV SCH (05:10)
[2020-01-02 06:02] LABS: BASOPHILS % (AUTO) 0 % (0-10); EOSINOPHILS % (AUTO) 0 % (0-10); HEMATOCRIT 48 % (40-54); HEMOGLOBIN 15.6 g/dL (13.3-17.7); LYMPHOCYTES # (AUTO) 0.6 10^3/uL (1.0-4.0); LYMPHOCYTES % (AUTO) 4 % (12-44); MEAN CORPUSCULAR HEMOGLOBIN 32 pg (25-34); MEAN CORPUSCULAR HGB CONC 33 g/dL (32-36); MEAN CORPUSCULAR VOLUME 96 fL (80-99); MEAN PLATELET VOLUME 10.4 fL (9.0-12.2); MONOCYTES # (AUTO) 1.3 10^3/uL (0.0-1.0); MONOCYTES % (AUTO) 9 % (0-12); NEUTROPHILS # (AUTO) 11.9 10^3/uL (1.8-7.8); NEUTROPHILS % (AUTO) 85 % (42-75); PLATELET COUNT 204 10^3/uL (130-400)
[2020-01-02 06:12] LABS: CHLORIDE 101 MMOL/L (98-107); POTASSIUM 4.4 MMOL/L (3.6-5.0); SODIUM 138 MMOL/L (135-145)
[2020-01-02 06:13] LABS: CALCIUM 9.1 MG/DL (8.5-10.1); GLUCOSE 113 MG/DL (70-105)
[2020-01-02 06:15] LABS: CARBON DIOXIDE 24 MMOL/L (21-32)
[2020-01-02 06:17] LABS: CREATININE SERUM 0.92 MG/DL (0.60-1.30); GFR ESTIMATED > 60; PHOSPHORUS 2.7 MG/DL (2.3-4.7)
[2020-01-02 06:18] LABS: BUN/CREATININE RATIO 32
[2020-01-02 06:19] LABS: MAGNESIUM 2.4 MG/DL (1.6-2.4)
[2020-01-02] MEDS: predniSONE 20 MG TAB PO SCH (06:51)
[2020-01-02] MEDS: PANTOPRAZOLE 40 MG (PROTONIX) TAB PO SCH (06:51)
[2020-01-02] MEDS: RT-ALBUTEROL/IPRATROPIUM 3 ML (DUONEB) VIAL INH SCH ×2 (06:58→10:25)
[2020-01-02] MEDS: ADVAIR HFA 115/21 MCG INHALER 8 GM IH SCH (06:59)
[2020-01-02] MEDS: LACTOBACILLUS ACIDOPHILUS (PROBIOTIC) CAPSULE PO SCH (07:57)
[2020-01-02] MEDS: FUROSEMIDE 40 MG/4 ML INJ (LASIX) IVP SCH (07:58)
[2020-01-02] MEDS: APIXABAN 5 MG (ELIQUIS) TABLET PO SCH (07:58)
[2020-01-02] MEDS: SPIRONOLACTONE 25 MG (ALDACTONE) TAB PO SCH (07:58)
[2020-01-02] MEDS: DRONEDARONE TABLET 400 MG TABLET PO SCH (07:58)
[2020-01-02 08:00] VITALS: BP 126/79
--- NOTE | 2020-01-02 09:22 | Discharge Summary ---
Diagnosis/Chief Complaint Date of Admission Dec 23, 2019 at 16:16 Date of Discharge Discharge Date: Jan 02, 2020 Discharge Time: 10:30 Discharge Summary Discharge Physical Examination Allergies: Coded Allergies: shellfish derived (Unverified Allergy, Severe, ANAPHYLAXIS, 02/18/19) meperidine (Unverified Allergy, Intermediate, LOW BP, N/V, 02/18/19) Vitals & I&Os Vital Signs Date Time Temp Pulse Resp B/P (MAP) Pulse Ox O2 Delivery O2 Flow Rate FiO2 01/02/20 08:00 95 Nasal Cannula 1.00 01/02/20 08:00 36.2 50 20 126/79 (95) 12/29/19 21:46 36 General Appearance: Alert, Oriented X3, Cooperative, No Acute Distress HEENT: Atraumatic, PERRLA, Mucous Memb Moist/[place] Respiratory: Other (faint crackles in bases) Cardiovascular: Regular Rate Abdominal: Normal Bowel Sounds, Soft Extremities: No Clubbing, Other (trace edema bilateral lower extremities) Skin: No Rashes, No Breakdown Neuro: Normal Speech, Strength at 5/5 X4 Ext, Cranial Nerves 3-12 NL Psych/Mental Status: Mental Status NL, Mood NL Hospital Course Was the Problem List Reviewed?: Yes ACUTE RESPIRATORY FAILURE - IMPROVING AND PT IS OFF OF CONTINUOUS BIPAP AND WEANED OFF OF VAPOTHERM ON 12/29/2019 - NOW ON HIGH FLOW OXYGEN AT 4 LITERS NC. WITH OVERNIGHT USE OF HIS BIPAP - CT SCAN REPORT FOLLOWS: IMPRESSION: Extensive emphysema and presumed interstitial scarring which is like ly the result of COPD. Mild increase in pleural thickening in the lateral right lower hemithorax is of uncertain significance and may be related to pleuritis or increasing fibrosis. No other definite acute abnormality or significant adverse change is noted. BILATERAL PNEUMONIA - PT ON ZOSYN CONTINUE WITH CURRENT MANAGEMENT, MONITOR SERIAL CHEST XRAYS - ANTIBIOTICS WILL FINISH 10 DAY COURSE ON 01/02/2020. AFIB WITH RVR - PT HAS CONVERTED - DEFER TO CARDIOLOGY - PERSISTENT TACHYCARDIA - MEDICATIONS MODIFIED - CARDIZEM DOSE CHANGED ON 12/29/2019 TO 180MG AM AND 120MG HS , SOTOLOL STOPPED AND PT RESTARTED ON MULTAQ 400MG BID. REALISTICALLY FEAROLL CANNOT GO HOME WITH A HEART RATE IN THE 120 -130'S RESTING BECAUSE HE WILL BE MORE EXHAUSTED, UNABLE TO PARTICIPATE IN IADLS AND ADLS AND WILL JUST BOUNCE RIGHT BACK INTO THE HOSPITAL. - DR. KRAFT HAS DISCUSSED WITH PT AND FAMILY IS IN AGREEMENT FOR CARDIOVERSION TODAY - 12/30/2019 COPD EXACERBATION - ON IV STEROIDS, WILL WEAN TO ORAL MEDICATION - CONTINUE WITH HOME REGIMEN ACUTE ON CHRONIC CONGESTIVE FAILURE - DUE TO AFIB - SHOULD IMPROVE HIS AFIB IMPROVES AND WITH IV LASIX. ANTICIPATE PT TO STAY IN HOSPITAL UNTIL THURSDAY OF NEXT WEEK Pending Labs Laboratory Tests 01/02/20 05:10: White Blood Count 14.0, Red Blood Count 4.93, Hemoglobin 15.6, Hematocrit 48, Mean Corpuscular Volume 96, Mean Corpuscular Hemoglobin 32, Mean Corpuscular Hemoglobin Concent 33, Red Cell Distribution Width 14.8, Platelet Count 204, Mean Platelet Volume 10.4, Immature Granulocyte % (Auto) 2, Neutrophils (%) (Auto) 85, Lymphocytes (%) (Auto) 4, Monocytes (%) (Auto) 9, Eosinophils (%) (Auto) 0, Basophils (%) (Auto) 0, Neutrophils # (Auto) 11.9, Lymphocytes # (Auto) 0.6, Monocytes # (Auto) 1.3, Eosinophils # (Auto) 0.0, Basophils # (Auto) 0.0, Immature Granulocyte # (Auto) 0.3, Sodium Level 138, Potassium Level 4.4, Chloride Level 101, Carbon Dioxide Level 24, Anion Gap 13, Blood Urea Nitrogen 29, Creatinine 0.92, Estimat Glomerular Filtration Rate > 60, BUN/Creatinine Ratio 32, Glucose Level 113, Calcium Level 9.1, Phosphorus Level 2.7, Magnesium Level 2.4 Discharge Instructions to patient/family Please see electronic discharge instructions given to patient. Discharge Medications Reviewed and agree with Discharge Medication list on patient's Discharge In struction sheet Clinical Quality Measures DVT/VTE Risk/Contraindication: Risk Factor Score Per Nursin RFS Level Per Nursing on Admit: 4+=Very High REJI GIBBS MD Jan 02, 2020 09:22
[2020-01-02] MEDS ORDERED: DILT180C85 PO (09:31)
[2020-01-02] MEDS ORDERED: PRD20T PO (09:31)
[2020-01-02] MEDS ORDERED: RIVA20TA PO (09:31)
[2020-01-02] MEDS ORDERED: DRON400T2 PO (09:31)
[2020-01-02] MEDS ORDERED: DILT-27 PO (09:31)
[2020-01-02] MEDS ORDERED: IPRA3AMP31 INH (09:31)
[2020-01-02] MEDS ORDERED: SPIR25TA5 PO (09:31)
--- NOTE | 2020-01-02 09:33 | Discharge Inst-Simple/Standard ---
Discharge Inst-Standard Discharge Medications New, Converted or Re-Newed RX: Transmitted to Pharmacy Patient Instructions/Follow Up Plan of Care/Instructions/FU: 1 wk with [facility] Activity as Tolerated: Yes Goal: oxygen currently at 1 liter while seated, go up to at least 3 liters with activity Discharge Diet: Low Sodium Diet Return to The Hospital For: any concern for worsening shortness of breath, chest pain, palpitations, or other life threatening illness symptoms Medication List: Active Scripts Active Iprat-Albut 0.5-3(2.5) mg/3 ml (Ipratropium/Albuterol Sulfate) 3 Ml Ampul.neb 3 Ml INH TID Xarelto (Rivaroxaban) 20 Mg Tablet 20 Mg PO DAILY at [facility] Prednisone 20 Mg Tab 40 Mg PO UD 2tab/day x2days then 1.5tab x 2days then 1tab x2 days then 0.5tab x 2 days then stop Spironolactone 25 Mg Tablet 25 Mg PO DAILY Diltiazem 24Hr ER (Diltiazem HCl) 180 Mg Cap.er.24h 180 Mg PO DAILY Diltiazem 24Hr ER (Diltiazem HCl) 120 Mg Cap.er.24h 120 Mg PO HS Multaq (Dronedarone HCl) 400 Mg Tablet 400 Mg PO BID Reported Diltiazem 24Hr ER (Diltiazem HCl) 300 Mg Cap.er.24h 300 Mg PO DAILY Furosemide 20 Mg Tablet 20 Mg PO DAILY Trelegy Ellipta 100-62.5-25 (Fluticasone/Umeclidin/Vilanter) 1 Each Blst.w.dev 1 Puff INH DAILY Sotalol (Sotalol HCl) 80 Mg Tablet 80 Mg PO DAILY Testosterone Cypionate 200 Mg/1 Ml Vial 200 Mg INJ EVERY 2 WEEKS Ventolin Hfa (Albuterol Sulfate) 1 Puff Puff 2 Puff INH Q4H PRN Omeprazole 40 Mg Capsule.dr 40 Mg PO HS Flomax (Tamsulosin HCl) 0.4 Mg Cap 0.4 Mg PO DAILY Pravastatin Sodium 20 Mg Tablet 20 Mg PO DAILY Tramadol HCl 50 Mg Tablet 50-100 Mg PO QID PRN Sildenafil (Sildenafil Citrate) 20 Mg Tablet 50 Mg PO DAILY PRN TAKES 2 & 1/2 (20MG) TABLETS Melatonin 3 Mg Tablet 6-9 Mg PO HS PRN TAKES 2 OR 3 (3MG) TABLETS Montelukast Sodium 10 Mg Tablet 10 Mg PO DAILY Eliquis (Apixaban) 5 Mg Tablet 5 Mg PO BID Gemfibrozil 600 Mg Tablet 600 Mg PO BID Lab results: Laboratory Tests Test 01/02/20 05:10 Range/Units White Blood Count 14.0 H 4.3-11.0 10^3/uL Red Blood Count 4.93 4.30-5.52 10^6/uL Hemoglobin 15.6 13.3-17.7 g/dL Hematocrit 48 40-54 % Mean Corpuscular Volume 96 80-99 fL Mean Corpuscular Hemoglobin 32 25-34 pg Mean Corpuscular Hemoglobin Concent 33 32-36 g/dL Red Cell Distribution Width 14.8 H 10.0-14.5 % Platelet Count 204 130-400 10^3/uL Mean Platelet Volume 10.4 9.0-12.2 fL Immature Granulocyte % (Auto) 2 % Neutrophils (%) (Auto) 85 H 42-75 % Lymphocytes (%) (Auto) 4 L 12-44 % Monocytes (%) (Auto) 9 0-12 % Eosinophils (%) (Auto) 0 0-10 % Basophils (%) (Auto) 0 0-10 % Neutrophils # (Auto) 11.9 H 1.8-7.8 10^3/uL Lymphocytes # (Auto) 0.6 L 1.0-4.0 10^3/uL Monocytes # (Auto) 1.3 H 0.0-1.0 10^3/uL Eosinophils # (Auto) 0.0 0.0-0.3 10^3/uL Basophils # (Auto) 0.0 0.0-0.1 10^3/uL Immature Granulocyte # (Auto) 0.3 H 0.0-0.1 10^3/uL Sodium Level 138 135-145 MMOL/L Potassium Level 4.4 3.6-5.0 MMOL/L Chloride Level 101 98-107 MMOL/L Carbon Dioxide Level 24 21-32 MMOL/L Anion Gap 13 5-14 MMOL/L Blood Urea Nitrogen 29 H 7-18 MG/DL Creatinine 0.92 0.60-1.30 MG/DL Estimat Glomerular Filtration Rate > 60 BUN/Creatinine Ratio 32 Glucose Level 113 H 70-105 MG/DL Calcium Level 9.1 8.5-10.1 MG/DL Phosphorus Level 2.7 2.3-4.7 MG/DL Magnesium Level 2.4 1.6-2.4 MG/DL My orders: Orders - REJI GIBBS MD Attending Discharge Inpt/Inobs (01/02/20 09:22) REJI GIBBS MD Jan 02, 2020 09:33
--- NOTE | 2020-01-02 10:40 | NUR ---
CM FINALIZED DISCHARGE PLAN: Patient is discharging home today self care. He already has oxygen that he uses at home. Instructions for patient to use 1LPM at rest and 3LPM with exercise have been given to him by Dr. Pruitt and the primary care nurse is going over his D/C instructions with him at this time. Both of them deny any needs for discharge to home.
--- NOTE | 2020-01-02 10:45 | NUR ---
Important Message from Medicare presented, reviewed, signed and placed in patient chart. Patient voiced no intention to appeal and deny any needs or further questions at this time. Patient is dressed and looking forward to going home today.
== END 2020-01-02 11:30 | disposition home or self-care (01) | DRG 871 ==
LOC: EDUNIT# 13:34 → ER 13:37 → CSD 16:16 → EDLOC 16:16 → ICU 12-24 15:15 → CSD 12-27 13:57 → 4TH 12-31 11:00
PROVIDERS: ADMIT Family Medicine; ATTEND Family Medicine
PROC: 5A09457 Assistance with Respiratory Ventilation, 24-96 Consecutive Hours, Continuous Positive Airway Pressure (ICD-10-PCS; 2019-12-23)
PROC: 5A2204Z Restoration of Cardiac Rhythm, Single (ICD-10-PCS; principal; 2019-12-25)
DX: A41.9 Sepsis, unspecified organism (principal); J96.21 Acute and chronic respiratory failure with hypoxia; J18.9 Pneumonia, unspecified organism; I50.33 Acute on chronic diastolic (congestive) heart failure; I48.92 Unspecified atrial flutter; J43.9 Emphysema, unspecified; I48.0 Paroxysmal atrial fibrillation; I11.0 Hypertensive heart disease with heart failure; E83.119 Hemochromatosis, unspecified; Z20.828 Contact with and (suspected) exposure to other viral communicable diseases; E78.5 Hyperlipidemia, unspecified; M35.00 Sjogren syndrome, unspecified; M81.0 Age-related osteoporosis without current pathological fracture; G47.33 Obstructive sleep apnea (adult) (pediatric); G43.909 Migraine, unspecified, not intractable, without status migrainosus; K21.9 Gastro-esophageal reflux disease without esophagitis; K44.9 Diaphragmatic hernia without obstruction or gangrene; M17.12 Unilateral primary osteoarthritis, left knee; M79.7 Fibromyalgia; Z85.828 Personal history of other malignant neoplasm of skin; M54.9 Dorsalgia, unspecified; E11.9 Type 2 diabetes mellitus without complications; M48.00 Spinal stenosis, site unspecified; G25.81 Restless legs syndrome; H91.93 Unspecified hearing loss, bilateral; Z87.891 Personal history of nicotine dependence; Z99.81 Dependence on supplemental oxygen; Z97.4 Presence of external hearing-aid; Z79.01 Long term (current) use of anticoagulants
CPT/HCPCS: 36415; 71045; 71250; 80048; 80053; 81000; 82805; 83605; 83735; 83880; 84100; 84145; 84484; 85007; 85025; 85027; 85610; 85730; 87040; 87070; 87081; 87088; 87205; 87635; 87804; 92960; 93005; 93306; 94640; 94660; 94664; 94760; 96361; 96365; 96366; 96367

== ENCOUNTER 2020-01-19 23:55 | Emergency (ER) | payer MEDICARE ==
[~2020-01-19] VITALS: Ht 180 cm; Wt 96.0 kg
[~2020-01-19 23:55] MED LIST changes: +DILT-27 PO; +DILT180C85 PO; +FLUT1BLS3 INH; -GEMF600T8 PO; +GEMF600T88 PO; +IPRA3AMP31 INH; -LISI-552 PO; +LISI20TA26 PO; -MONT10TA26 PO; +MONT10TA32 PO; -OXYC-471 PO; +OXYC1TAB11 PO; +PRD20T PO; +RIVA20TA PO; +SPIR25TA5 PO
[2020-01-20 00:22] LABS: BASOPHILS # (AUTO) 0.1 10^3/uL (0.0-0.1); BASOPHILS % (AUTO) 1 % (0-10); EOSINOPHILS # (AUTO) 0.2 10^3/uL (0.0-0.3); EOSINOPHILS % (AUTO) 4 % (0-10); HEMATOCRIT 50 % (40-54); HEMOGLOBIN 16.5 g/dL (13.3-17.7); LYMPHOCYTES # (AUTO) 1.5 10^3/uL (1.0-4.0); LYMPHOCYTES % (AUTO) 23 % (12-44); MEAN CORPUSCULAR HEMOGLOBIN 32 pg (25-34); MEAN CORPUSCULAR HGB CONC 33 g/dL (32-36); MEAN CORPUSCULAR VOLUME 95 fL (80-99); MEAN PLATELET VOLUME 9.8 fL (9.0-12.2); MONOCYTES # (AUTO) 0.7 10^3/uL (0.0-1.0); MONOCYTES % (AUTO) 11 % (0-12); NEUTROPHILS % (AUTO) 61 % (42-75); PLATELET COUNT 258 10^3/uL (130-400); WHITE BLOOD COUNT 6.7 10^3/uL (4.3-11.0)
[2020-01-20 00:30] LABS: ALBUMIN 4.1 GM/DL (3.2-4.5); CHLORIDE 105 MMOL/L (98-107); INR 1.9 (0.8-1.4); POTASSIUM 4.7 MMOL/L (3.6-5.0); PROTHROMBIN TIME PATIENT 22.4 SEC (12.2-14.7); SODIUM 137 MMOL/L (135-145)
[2020-01-20 00:31] LABS: CALCIUM 9.4 MG/DL (8.5-10.1)
[2020-01-20 00:32] LABS: GLUCOSE 103 MG/DL (70-105); TOTAL PROTEIN 7.6 GM/DL (6.4-8.2)
[2020-01-20 00:33] LABS: CARBON DIOXIDE 17 MMOL/L (21-32)
[2020-01-20 00:34] LABS: BILIRUBIN,TOTAL 0.9 MG/DL (0.1-1.0)
[2020-01-20 00:35] LABS: ALKALINE PHOSPHATASE 90 U/L (40-136)
[2020-01-20 00:36] LABS: CREATININE SERUM 1.23 MG/DL (0.60-1.30); GFR ESTIMATED 57
[2020-01-20 00:37] LABS: BUN/CREATININE RATIO 15
[2020-01-20 00:39] LABS: ALANINE AMINOTRANSFERASE 35 U/L (0-55)
[2020-01-20 00:45] VITALS: BP 108/69
--- NOTE | 2020-01-20 01:43 | ED Cardiac General ---
History of Present Illness General Chief Complaint: Cardiac/General Problems Stated Complaint: SOB,A-FIB Source: patient, old records Exam Limitations: no limitations History of Present Illness Date Seen by Provider: Jan 20, 2020 Time Seen by Provider: 00:02 Initial Comments This 79-year-old gentleman presents to the emergency room with complaints of tachycardia up to 180 bpm. He has history of paroxysmal atrial fibrillation. He felt tired and experienced worsening shortness of breath along with his tachycardia. This went on for a few hours so he decided to present to the emergency room. By the time of his arrival he was in normal sinus rhythm. He denies any chest pain. He notes he was recently admitted to the hospital for several days due to pneumonia. Allergies and Home Medications Allergies Coded Allergies: shellfish derived (Unverified Allergy, Severe, ANAPHYLAXIS, 02/18/19) meperidine (Unverified Allergy, Intermediate, LOW BP, N/V, 02/18/19) Home Medications Albuterol Sulfate 1 Puff Puff, 2 PUFF INH Q4H PRN for SHORTNESS OF BREATH, (Reported) Diltiazem HCl 120 Mg Cap.er.24h, 120 MG PO HS Prescribed by: REJI GIBBS on 01/02/20930 Diltiazem HCl 180 Mg Cap.er.24h, 180 MG PO DAILY Prescribed by: REJI GIBBS on 01/02/20930 Dronedarone HCl 400 Mg Tablet, 400 MG PO BID Prescribed by: REJI GIBBS on 01/02/20930 Fluticasone/Umeclidin/Vilanter 1 Each Blst.w.dev, 1 PUFF INH DAILY, (Reported) Furosemide 20 Mg Tablet, 20 MG PO DAILY, (Reported) Gemfibrozil 600 Mg Tablet, 600 MG PO BID, (Reported) Ipratropium/Albuterol Sulfate 3 Ml Ampul.neb, 3 ML INH TID Prescribed by: REJI GIBBS on 01/02/20930 Melatonin 3 Mg Tablet, 6-9 MG PO HS PRN for SLEEP, (Reported) TAKES 2 OR 3 (3MG) TABLETS Montelukast Sodium 10 Mg Tablet, 10 MG PO DAILY, (Reported) Omeprazole 40 Mg Capsule.dr, 40 MG PO HS, (Reported) Pravastatin Sodium 20 Mg Tablet, 20 MG PO DAILY, (Reported) Prednisone 20 Mg Tab, 40 MG PO UD 2tab/day x2days then 1.5tab x 2days then 1tab x2 days then 0.5tab x 2 days then stop Prescribed by: REJI GIBBS on 01/02/20930 Rivaroxaban 20 Mg Tablet, 20 MG PO DAILY Prescribed by: REJI GIBBS on 01/02/20930 Sildenafil Citrate 20 Mg Tablet, 50 MG PO DAILY PRN for ED, (Reported) TAKES 2 & 1/2 (20MG) TABLETS Spironolactone 25 Mg Tablet, 25 MG PO DAILY Prescribed by: REJI GIBBS on 01/02/20930 Tamsulosin HCl 0.4 Mg Cap, 0.4 MG PO DAILY, (Reported) Testosterone Cypionate 200 Mg/1 Ml Vial, 200 MG INJ EVERY 2 WEEKS, (Reported) Tramadol HCl 50 Mg Tablet, 50-100 MG PO QID PRN for PAIN-MODERATE, (Reported) Patient Home Medication List Home Medication List Reviewed: Yes Review of Systems Review of Systems Constitutional: no symptoms reported EENTM: No Symptoms Reported Respiratory: See HPI Cardiovascular: See HPI Gastrointestinal: No Symptoms Reported Genitourinary: No Symptoms Reported Musculoskeletal: no symptoms reported Skin: no symptoms reported Psychiatric/Neurological: No Symptoms Reported Endocrine: No Symptoms Reported Past Njnkeuu-Qdzujb-Wjbmnk Hx Past Med/Social Hx: Reviewed Nursing Past Med/Soc Hx Patient Social History Alcohol Use: Denies Use Recreational Drug Use: No (STOPPED SMOKING 15 YEARS AGO) Type Used: Cigarettes Former Smoker, Quit: Feb 19, 2004 2nd Hand Smoke Exposure: Yes Recent Foreign Travel: No Contact w/Someone Who Travel: No Recent Hopitalizations: No Immunizations Up To Date Tetanus Booster (TDap): Unknown Date of Pneumonia Vaccine: Apr 17, 2016 Date of Influenza Vaccine: Nov 10, 2019 Seasonal Allergies Seasonal Allergies: No Past Medical History Surgeries: Yes (EP PROCEDURE WITH ABLATION) Joint Replacement Respiratory: Yes (O2 DEPENDENT) Sleep Apnea, Emphysema Currently Using CPAP: Yes Currently Using BIPAP: No Cardiac: Yes (MITRAL VALVE REPAIR) Atrial Fibrillation, Hypertension, Valvular Heart Disease Neurological: No Headaches /Migraines Reproductive Disorders: No Sexually Transmitted Disease: No HIV/AIDS: No Genitourinary: Yes Kidney Stones Gastrointestinal: Yes Gastroesophageal Reflux, Hiatal Hernia Musculoskeletal: Yes (LEFT KNEE DJD, SPINAL STENOSIS, RESTLESS LEG SYNDROME) Arthritis, Fibromyalgia, Chronic Back Pain Endocrine: Yes (DIET CONTROLLED DIABETES) Diabetes, Non-Insulin dep HEENT: Yes (GLASSES, DENTURES) Cataract Loss of Vision: Denies Hearing Impairment: Hard of Hearing, Bilateral Hearing Aide Cancer: Yes Skin Did You Recieve Any Treatments: Yes What Type of Treatment Did You: Surgical Intervention Psychosocial: No Integumentary: No Blood Disorders: No Adverse Reaction/Blood Tranf: No (N/A) Family Medical History Cancer Physical Exam Vital Signs Vital Signs - First Documented 01/20/20 00:17 Temp 35.4 Pulse 101 Resp 14 B/P (MAP) 135/52 (79) Pulse Ox 95 O2 Delivery Nasal Cannula O2 Flow Rate 2.00 Capillary Refill : Less Than 3 Seconds Height, Weight, BMI Height: 5'11.00" Weight: 251lbs. 0.8oz. 112.924177ue; 33.19 BMI Method:Stated General Appearance: No Apparent Distress, WD/WN HEENT: PERRL/EOMI, Normal ENT Inspection Neck: Normal Inspection Respiratory: Lungs Clear, Normal Breath Sounds, No Accessory Muscle Use, No Respiratory Distress Cardiovascular: Regular Rate, Rhythm, No Edema, No Murmur Gastrointestinal: Soft Extremity: Normal Inspection, No Pedal Edema Neurologic/Psychiatric: Alert, Oriented x3, No Motor/Sensory Deficits, Normal Mood/Affect, town administrator II-XII Norm as Tested Skin: Normal Color, Warm/Dry Procedures/Interventions Date of ETT Placement: Apr 18, 2019 Time of ETT Placement: 151 Progress/Results/Core Measures Results/Orders Lab Results Laboratory Tests Test 01/20/20 00:10 Range/Units White Blood Count 6.7 4.3-11.0 10^3/uL Red Blood Count 5.24 4.30-5.52 10^6/uL Hemoglobin 16.5 13.3-17.7 g/dL Hematocrit 50 40-54 % Mean Corpuscular Volume 95 80-99 fL Mean Corpuscular Hemoglobin 32 25-34 pg Mean Corpuscular Hemoglobin Concent 33 32-36 g/dL Red Cell Distribution Width 15.0 H 10.0-14.5 % Platelet Count 258 130-400 10^3/uL Mean Platelet Volume 9.8 9.0-12.2 fL Immature Granulocyte % (Auto) 1 % Neutrophils (%) (Auto) 61 42-75 % Lymphocytes (%) (Auto) 23 12-44 % Monocytes (%) (Auto) 11 0-12 % Eosinophils (%) (Auto) 4 0-10 % Basophils (%) (Auto) 1 0-10 % Neutrophils # (Auto) 4.0 1.8-7.8 10^3/uL Lymphocytes # (Auto) 1.5 1.0-4.0 10^3/uL Monocytes # (Auto) 0.7 0.0-1.0 10^3/uL Eosinophils # (Auto) 0.2 0.0-0.3 10^3/uL Basophils # (Auto) 0.1 0.0-0.1 10^3/uL Immature Granulocyte # (Auto) 0.1 0.0-0.1 10^3/uL Prothrombin Time 22.4 H 12.2-14.7 SEC INR Comment 1.9 H 0.8-1.4 Activated Partial Thromboplast Time 34 24-35 SEC Sodium Level 137 135-145 MMOL/L Potassium Level 4.7 3.6-5.0 MMOL/L Chloride Level 105 98-107 MMOL/L Carbon Dioxide Level 17 L 21-32 MMOL/L Anion Gap 15 H 5-14 MMOL/L Blood Urea Nitrogen 18 7-18 MG/DL Creatinine 1.23 0.60-1.30 MG/DL Estimat Glomerular Filtration Rate 57 BUN/Creatinine Ratio 15 Glucose Level 103 70-105 MG/DL Calcium Level 9.4 8.5-10.1 MG/DL Corrected Calcium 9.3 8.5-10.1 MG/DL Magnesium Level 2.0 1.6-2.4 MG/DL Total Bilirubin 0.9 0.1-1.0 MG/DL Aspartate Amino Transf (AST/SGOT) 34 5-34 U/L Alanine Aminotransferase (ALT/SGPT) 35 0-55 U/L Alkaline Phosphatase 90 40-136 U/L Lactate Dehydrogenase 400 H 125-220 U/L Myoglobin 90.7 10.0-92.0 NG/ML Troponin I < 0.028 <0.028 NG/ML C-Reactive Protein High Sensitivity 0.24 0.00-0.50 MG/DL Total Protein 7.6 6.4-8.2 GM/DL Albumin 4.1 3.2-4.5 GM/DL Procalcitonin 0.06 <0.10 NG/ML My Orders Orders - LUCY MONTES DE OCA MD Cbc With Automated Diff (01/20/20 00:06) Magnesium (01/20/20 00:06) Chest 1 View, Ap/Pa Only (01/20/20 00:06) Ekg Tracing (01/20/20 00:06) Comprehensive Metabolic Panel (01/20/20 00:06) Myoglobin Serum (01/20/20 00:06) Protime With Inr (01/20/20 00:06) Partial Thromboplastin Time (01/20/20 00:06) O2 (01/20/20 00:06) Monitor-Rhythm Ecg Trace Only (01/20/20 00:06) Ed Iv/Invasive Line Start (01/20/20 00:06) Hs C Reactive Protein (01/20/20 00:10) LDH (01/20/20 00:10) Procalcitonin (Pct) (01/20/20 00:10) Troponin I (01/20/20 00:10) Vital Signs/I&O 01/20/20 01/20/20 01/20/20 00:17 00:17 00:45 Temp 35.4 Pulse 101 91 Resp 14 16 B/P (MAP) 135/52 (79) 108/69 Pulse Ox 95 96 96 O2 Delivery Nasal Cannula Nasal Cannula Room Air O2 Flow Rate 2.00 Progress Progress Note : Progress Note Work-up was relatively unremarkable. Patient stayed in sinus rhythm throughout his stay and experienced no worsening of symptoms. Initial ECG Impression Date: Jan 20, 2020 Initial ECG Impression Time: 09:58 Initial ECG Rate: 97 Initial ECG Rhythm: Normal Sinus Initial ECG Intervals: Normal Initial ECG Impression: Normal Comment NSR with no ST elevation or depression. No abnormal intervals or axis deviation. Diagnostic Imaging Diagonstic Imaging: Xray Plain Films/CT/US/NM/MRI: chest Comments Chest x-ray viewed by me and report reviewed. Compared with prior. No significant change from prior. NAME: JESSICA NOBLE [facility] REC#: [id number] PT STATUS: DEP ER : [id number] PHYSICIAN: LUCY MONTES DE OCA MD ADMIT DATE: 01/20/20/ER Signed Date of Exam:01/20/20 CHEST 1 VIEW, AP/PA ONLY INDICATION: Chest pain. TECHNIQUE: Single view chest 12:54 AM. CORRELATION STUDY: 12/31/2019 FINDINGS: Poststernotomy changes. Loop recorder device projects over the left heart. Heart size enlarged. Component of vascular congestion is present. Rather extensive, scattered mixed alveolar interstitial infiltrate throughout both lung rinaldi are again demonstrated. Overall perhaps slightly more prominent from prior. IMPRESSION: 1. Extensive mixed alveolar interstitial infiltrate-like opacities throughout both lung rinaldi right slightly greater than left. Stable to slightly progressed. 2. Cardiac enlargement. Vasculature slightly prominent. Dictated by: Dictated on workstation # [id number] Dict: 01/20/20622 Trans: 01/20/20845 [id number] Interpreted by: SANDRO YOUNGER DO Electronically signed by: SANDRO YOUNGER DO 01/20/20845 Departure Impression Primary Impression: Paroxysmal atrial fibrillation Additional Impressions: Tachycardia Chronic dyspnea Disposition: HOME, SELF-CARE Condition: Improved Departure-Patient Inst. Decision time for Depature: 01:42 Referrals: REJI GIBBS MD (PCP/Family) Primary Care Physician Patient Instructions: Atrial Fibrillation Add. Discharge Instructions: Continue with your current medications as previously prescribed. Contact your sheriffs in the morning to report your symptoms of tachycardia. Return to the emergency room if you have persistent sustained tachycardia in the future or you develop secondary symptoms such as worsening shortness of breath, lightheadedness, etc. All discharge instructions reviewed with patient and/or family. Voiced understanding. Copy Copies To 1: REJI GIBBS MD Copies To 2: MIRLANDE COOPER MD, JOSHUA T MD Jan 20, 2020 01:43
--- NOTE | 2020-01-20 06:30 | Diagnostic Imaging Report ---
INDICATION: Chest pain. TECHNIQUE: Single view chest 12:54 AM. CORRELATION STUDY: 12/31/2019 FINDINGS: Poststernotomy changes. Loop recorder device projects over the left heart. Heart size enlarged. Component of vascular congestion is present. Rather extensive, scattered mixed alveolar interstitial infiltrate throughout both lung rinaldi are again demonstrated. Overall perhaps slightly more prominent from prior. IMPRESSION: 1. Extensive mixed alveolar interstitial infiltrate-like opacities throughout both lung rinaldi right slightly greater than left. Stable to slightly progressed. 2. Cardiac enlargement. Vasculature slightly prominent. Dictated by: Dictated on workstation # [id number]
== END 2020-01-20 02:58 | disposition home or self-care (01) ==
LOC: EDUNIT# 23:55 → ER 01-20
DX: I48.0 Paroxysmal atrial fibrillation (principal); R00.0 Tachycardia, unspecified; R06.00 Dyspnea, unspecified; I10 Essential (primary) hypertension; K21.9 Gastro-esophageal reflux disease without esophagitis; Z80.9 Family history of malignant neoplasm, unspecified; Z85.828 Personal history of other malignant neoplasm of skin; Z87.891 Personal history of nicotine dependence; Z88.5 Allergy status to narcotic agent; Z79.52 Long term (current) use of systemic steroids; Z79.01 Long term (current) use of anticoagulants
CPT/HCPCS: 36415; 71045; 80053; 83615; 83735; 83874; 84145; 84484; 85025; 85610; 85730; 86141; 93005; 93041

== ENCOUNTER → 2020-02-06 | Outpatient (CLI) | payer MEDICARE ==
[~2020-02-06] MED LIST changes: +CATHETER FLUSH 10 ML SYR IV PRN; +GEMF600T8 PO; -GEMF600T88 PO; +HOLD METFORMIN - RECEIVED CONTRAST 20 ML VIAL IV SCH; +IOHEXOL 350 MG/ML 100 ML (OMNIPAQUE 350) VIAL IV ONE; +LISI-552 PO; -LISI20TA26 PO; -MONT10TA32 PO; +MONT10TA97 PO; +NS 100 ML (IVPB) BAG IV ONE; +OXYC-471 PO; -OXYC1TAB11 PO
[2020-02-06 11:52] LABS: BUN/CREATININE RATIO 20; CREATININE SERUM 0.84 MG/DL (0.60-1.30); GFR ESTIMATED > 60
--- NOTE | 2020-02-06 12:43 | Diagnostic Imaging Report ---
PROCEDURE: CT chest with contrast only. TECHNIQUE: Multiple contiguous axial images were obtained through the chest after administration of intravenous contrast. Auto Exposure Controls were utilized during the CT exam to meet ALARA standards for radiation dose reduction. INDICATION: Pneumonia. COMPARISON: 12/29/2019 Extensive bullous emphysema is again seen throughout the lungs with an upper lobe predominance. There is also peripheral honeycombing compatible with small airspace disease. Large bullae in the lateral aspect of the right lower lobe is again identified with interval improvement in the associated pleural thickening. There is also a nodule in the posterior aspect of the right lower lobe which is similar to the previous examination. No significant pleural or pericardial effusion is identified. Mildly prominent mediastinal and right hilar lymph nodes are similar to the previous examination as well. Upper abdominal sections reveal pancreatic calcifications likely due to chronic pancreatitis. There is mild hiatal hernia. IMPRESSION: Extensive chronic lung disease with mild improvement in the previously described lateral pleural thickening which may have been due to inflammation. Additional pleural thickening and subpleural nodularity is seen in the posterior right lower lobe without significant change. Mildly prominent mediastinal and hilar lymph nodes have remained stable. These may be reactive in nature. Additional follow-up study could be performed to document ongoing stability. Dictated by: Dictated on workstation # [id number]
== END ==
LOC: RAD 11:11
PROVIDERS: ATTEND Nurse Practitioner Family
DX: J18.9 Pneumonia, unspecified organism (principal)
CPT/HCPCS: 36415; 71260; 82565; 84520

== ENCOUNTER → 2020-06-05 | Outpatient (CLI) | payer MEDICARE ==
[~2020-06-05] MED LIST changes: -CATHETER FLUSH 10 ML SYR IV PRN; -DRON400T2 PO; +DRON400T6 PO; -GEMF600T8 PO; +GEMF600T88 PO; -HOLD METFORMIN - RECEIVED CONTRAST 20 ML VIAL IV SCH; -IOHEXOL 350 MG/ML 100 ML (OMNIPAQUE 350) VIAL IV ONE; -LISI-552 PO; +LISI20TA26 PO; +MONT10TA32 PO; -MONT10TA97 PO; -NS 100 ML (IVPB) BAG IV ONE; -OXYC-471 PO; +OXYC1TAB11 PO
[2020-06-05 11:27] LABS: BASOPHILS # (AUTO) 0.1 10^3/uL (0.0-0.1); BASOPHILS % (AUTO) 1 % (0-10); EOSINOPHILS # (AUTO) 0.1 10^3/uL (0.0-0.3); EOSINOPHILS % (AUTO) 1 % (0-10); HEMATOCRIT 47 % (40-54); HEMOGLOBIN 15.2 g/dL (13.3-17.7); LYMPHOCYTES # (AUTO) 1.3 10^3/uL (1.0-4.0); LYMPHOCYTES % (AUTO) 18 % (12-44); MEAN CORPUSCULAR HEMOGLOBIN 32 pg (25-34); MEAN CORPUSCULAR HGB CONC 33 g/dL (32-36); MEAN CORPUSCULAR VOLUME 97 fL (80-99); MEAN PLATELET VOLUME 9.8 fL (9.0-12.2); MONOCYTES % (AUTO) 14 % (0-12); NEUTROPHILS # (AUTO) 4.5 10^3/uL (1.8-7.8); NEUTROPHILS % (AUTO) 65 % (42-75); PLATELET COUNT 238 10^3/uL (130-400); WHITE BLOOD COUNT 6.9 10^3/uL (4.3-11.0)
[2020-06-05 11:47] LABS: ALBUMIN 4.1 GM/DL (3.2-4.5); BILIRUBIN,TOTAL 0.6 MG/DL (0.1-1.0); CALCIUM 9.8 MG/DL (8.5-10.1); CREATININE SERUM 1.18 MG/DL (0.60-1.30); POTASSIUM 4.5 MMOL/L (3.6-5.0); TOTAL PROTEIN 7.3 GM/DL (6.4-8.2)
== END ==
LOC: LAB 11:02
PROVIDERS: ATTEND Internal Medicine Cardiovascular Disease
DX: I48.0 Paroxysmal atrial fibrillation (principal)
CPT/HCPCS: 36415; 80053; 85025

== ENCOUNTER → 2020-06-14 | Outpatient (CLI) | payer MEDICARE ==
[~2020-06-14] MED LIST changes: +CATHETER FLUSH 10 ML SYR IV PRN; +HOLD METFORMIN - RECEIVED CONTRAST 20 ML VIAL IV SCH; +IOHEXOL 350 MG/ML 100 ML (OMNIPAQUE 350) VIAL IV ONE; +NS 100 ML (IVPB) BAG IV ONE; +RT-ALBUTEROL SULF 2.5 MG/3 ML PRE-MIX VIAL INH ONE
--- NOTE | 2020-06-14 10:39 | Diagnostic Imaging Report ---
PROCEDURE: CT chest with contrast only. TECHNIQUE: Multiple contiguous axial images were obtained through the chest after administration of intravenous contrast. Auto Exposure Controls were utilized during the CT exam to meet ALARA standards for radiation dose reduction. INDICATION: COPD, history of skin malignancy and postsurgical changes to the right lung. Compared with an exam 02/06/2020. FINDINGS: Thoracic aorta patent and nonaneurysmal. No appreciable pulmonary arterial filling defect. There is severe fibroemphysematous changes to the lungs with areas of retraction, scarring, blebs and bullous disease. Tracheobronchomegaly unchanged. Juxtapleural opacity in the right lung base posteromedially measured 1.7 cm unchanged from previous exams. Mild bilateral hilar lymph nodes slightly decreased in size. Few shotty paratracheal mediastinal nodes also appear less in size and number. No pathological appearing lymph nodes. The axilla unremarkable. There is previous sternotomy with no acute appearing chest wall pathology. Mild cardiomegaly unchanged. The visualized upper abdomen nonacute. IMPRESSION: 1. Hilar and mediastinal lymph nodes smaller and less numerous. No convincing pathological imani disease. 2. Severe fibroemphysematous chronic lung disease with an area of stable pleural parenchymal thickening in the right lower lung posteromedially. No new abnormality or adverse change. Dictated by: Dictated on workstation # [id number]
== END ==
LOC: RT 08:00
PROVIDERS: ATTEND Nurse Practitioner Family
DX: J43.9 Emphysema, unspecified (principal); J84.10 Pulmonary fibrosis, unspecified; J92.9 Pleural plaque without asbestos
CPT/HCPCS: 71260; 94060; 94726; 94729

== ENCOUNTER → 2020-06-28 | Outpatient (CLI) | payer MEDICARE ==
[~2020-06-28] MED LIST changes: -CATHETER FLUSH 10 ML SYR IV PRN; -HOLD METFORMIN - RECEIVED CONTRAST 20 ML VIAL IV SCH; -IOHEXOL 350 MG/ML 100 ML (OMNIPAQUE 350) VIAL IV ONE; -NS 100 ML (IVPB) BAG IV ONE; -RT-ALBUTEROL SULF 2.5 MG/3 ML PRE-MIX VIAL INH ONE
--- NOTE | 2020-06-28 16:17 | Diagnostic Imaging Report ---
INDICATION: Shortness of breath PA and lateral chest There are postoperative changes from valve repair surgery. There is a loop recorder projecting over the left lower chest. There is diffuse pulmonary fibrosis. There is no effusion or pneumothorax. IMPRESSION: Pulmonary fibrosis. There is less alveolar edema or infiltrate compared to the prior exam done on 01/20/2020. Dictated by: Dictated on workstation # [id number]
[2020-06-28 16:18] LABS: BASOPHILS # (AUTO) 0.1 10^3/uL (0.0-0.1); BASOPHILS % (AUTO) 1 % (0-10); EOSINOPHILS % (AUTO) 0 % (0-10); HEMATOCRIT 43 % (40-54); HEMOGLOBIN 14.1 g/dL (13.3-17.7); LYMPHOCYTES # (AUTO) 0.9 10^3/uL (1.0-4.0); LYMPHOCYTES % (AUTO) 6 % (12-44); MEAN CORPUSCULAR HEMOGLOBIN 32 pg (25-34); MEAN CORPUSCULAR HGB CONC 33 g/dL (32-36); MEAN CORPUSCULAR VOLUME 96 fL (80-99); MEAN PLATELET VOLUME 9.8 fL (9.0-12.2); MONOCYTES # (AUTO) 1.5 10^3/uL (0.0-1.0); MONOCYTES % (AUTO) 10 % (0-12); NEUTROPHILS # (AUTO) 12.2 10^3/uL (1.8-7.8); NEUTROPHILS % (AUTO) 82 % (42-75); PLATELET COUNT 272 10^3/uL (130-400)
[2020-06-28 16:40] LABS: ALBUMIN 3.6 GM/DL (3.2-4.5); ANISOCYTOSIS SLIGHT; BAND NEUTROPHILS 0 %; BASOPHILS % (MANUAL) 0 %; BILIRUBIN,TOTAL 2.5 MG/DL (0.1-1.0); CALCIUM 9.5 MG/DL (8.5-10.1); CREATININE SERUM 1.29 MG/DL (0.60-1.30); EOSINOPHILS % (MANUAL) 0 %; LYMPHOCYTES % (MANUAL) 6 %; MONOCYTES % (MANUAL) 8 %; NEUTROPHILS % (MANUAL) 86 %; POLYCHROMASIA SLIGHT; POTASSIUM 4.3 MMOL/L (3.6-5.0); TOTAL PROTEIN 7.5 GM/DL (6.4-8.2)
== END ==
LOC: RAD 15:43
PROVIDERS: ATTEND Nurse Practitioner Family
DX: J84.10 Pulmonary fibrosis, unspecified (principal); J44.9 Chronic obstructive pulmonary disease, unspecified; I48.0 Paroxysmal atrial fibrillation
CPT/HCPCS: 36415; 71046; 80053; 85007; 85027

== ENCOUNTER 2020-07-10 06:00 | Outpatient (RCR) | payer MEDICARE | END 2020-07-22 | disposition home or self-care (01) | LOC: CR3 06:00 | PROVIDERS: ATTEND Nurse Practitioner Family | DX: Z29.8 Encounter for other specified prophylactic measures (principal) ==

== ENCOUNTER 2020-07-30 14:21 | Outpatient (RCR) | payer MEDICARE ==
[~2020-07-30 14:21] MED LIST changes: -OMEP40CA27 PO; +OMEP40CA6 PO
== END 2020-08-22 | disposition home or self-care (01) ==
LOC: CR3 14:21
PROVIDERS: ATTEND Nurse Practitioner Family
DX: Z29.8 Encounter for other specified prophylactic measures (principal)

== ENCOUNTER 2020-08-23 14:27 | Inpatient (IN) | payer MEDICARE ==
[~2020-08-23] VITALS: Ht 180 cm; Wt 100.3 kg
[~2020-08-23 14:27] MED LIST changes: -DIGO125T3 PO; +ETOMIDATE IV SOLN 20 MG/10 ML VIAL IV ONE; -FLUT1BLS3 IH; -PROPOFOL DRIP (ICU) 100 ML IV SCH; +ROCURONIUM 10 MG/ML 5 ML SYRINGE IV ONE; +SUCCINYLCHOLINE INJ 100 MG/5 ML SYR/VIAL INJ ONE
--- NOTE | 2020-08-23 14:57 | ED Respiratory ---
General Chief Complaint: Respiratory Problems Stated Complaint: RESP ISSUES, AFIB Source: patient, other Exam Limitations: no limitations History of Present Illness Date Seen by Provider: Aug 23, 2020 Time Seen by Provider: 14:40 Initial Comments Patient is a 80-year-old male who presents to the emergency department with a chief complaint of shortness of breath, hemoptysis, increasing oxygen requirements over the last several days. Patient has a history of interstitial lung disease and is followed in pulmonology clinic. The nurse practitioner in pulmonology clinic called me today to let me know that he has had increasing oxygen requirements and productive cough with some difficulty breathing. They checked an ABG in clinic and found him to be hypoxic on his normal 5 to 6 L per nasal cannula. He is still hypoxic on 10 L per simple facemask running at 88,89, 90%. He has a history of atrial fibrillation chronically anticoagulated. Denies chest pain. Denies fevers or chills. Has been having some body aches but he states this is not a new complaint. Denies diarrhea or urinary difficul ties. No black or bloody stools. All other review of systems reviewed and negative except as stated above. Timing/Duration: getting worse Severity: moderate Prior Episodes/Possible Cause: occasional episodes Modifying Factors: Improves With Albuterol Inhaler Associated Symptoms: No chest pain/soreness; shortness of breath Allergies and Home Medications Allergies Coded Allergies: shellfish derived (Unverified Allergy, Severe, ANAPHYLAXIS, 02/18/19) meperidine (Unverified Allergy, Intermediate, LOW BP, N/V, 02/18/19) Home Medications Albuterol Sulfate 1 Puff Puff, 2 PUFF INH Q4H PRN for SHORTNESS OF BREATH, (Reported) Diltiazem HCl 120 Mg Cap.er.24h, 120 MG PO HS Prescribed by: REJI GIBBS on 01/02/20930 Diltiazem HCl 180 Mg Cap.er.24h, 180 MG PO DAILY Prescribed by: REJI GIBBS on 01/02/20930 Dronedarone HCl 400 Mg Tablet, 400 MG PO BID Prescribed by: REJI GIBBS on 01/02/20930 Fluticasone/Umeclidin/Vilanter 1 Each Blst.w.dev, 1 PUFF INH DAILY, (Reported) Furosemide 20 Mg Tablet, 20 MG PO DAILY, (Reported) Gemfibrozil 600 Mg Tablet, 600 MG PO BID, (Reported) Ipratropium/Albuterol Sulfate 3 Ml Ampul.neb, 3 ML INH TID Prescribed by: REJI GIBBS on 01/02/20930 Melatonin 3 Mg Tablet, 6-9 MG PO HS PRN for SLEEP, (Reported) TAKES 2 OR 3 (3MG) TABLETS Montelukast Sodium 10 Mg Tablet, 10 MG PO DAILY, (Reported) Omeprazole 40 Mg Capsule.dr, 40 MG PO HS, (Reported) Pravastatin Sodium 20 Mg Tablet, 20 MG PO DAILY, (Reported) Prednisone 20 Mg Tab, 40 MG PO UD 2tab/day x2days then 1.5tab x 2days then 1tab x2 days then 0.5tab x 2 days then stop Prescribed by: REJI GIBBS on 01/02/20930 Rivaroxaban 20 Mg Tablet, 20 MG PO DAILY Prescribed by: REJI GIBBS on 01/02/20930 Sildenafil Citrate 20 Mg Tablet, 50 MG PO DAILY PRN for ED, (Reported) TAKES 2 & 1/2 (20MG) TABLETS Spironolactone 25 Mg Tablet, 25 MG PO DAILY Prescribed by: REJI GIBBS on 01/02/20930 Tamsulosin HCl 0.4 Mg Cap, 0.4 MG PO DAILY, (Reported) Testosterone Cypionate 200 Mg/1 Ml Vial, 200 MG INJ EVERY 2 WEEKS, (Reported) Tramadol HCl 50 Mg Tablet, 50-100 MG PO QID PRN for PAIN-MODERATE, (Reported) Patient Home Medication List Home Medication List Reviewed: Yes Review of Systems Review of Systems Constitutional: see HPI EENTM: no symptoms reported Respiratory: cough, hemoptysis, short of breath Cardiovascular: no symptoms reported Gastrointestinal: no symptoms reported Genitourinary: no symptoms reported Musculoskeletal: muscle cramps (bilateral LE) Skin: no symptoms reported Psychiatric/Neurological: No Symptoms Reported All Other Systems Reviewed Negative Unless Noted: Yes Past Jwwnqmj-Owbbrh-Tdzwxv Hx Patient Social History Smoking Status: Former Smoker Use of E-Cig and/or Vaping dev: No Use of E-Cig and/or Vaping Dennys: Never a User Substance use?: No Alcohol Use?: No Pt feels they are or have been: No Immunizations Up To Date Tetanus Booster (TDap): Unknown First/Initial COVID19 Vaccinat: 03/08/20 Second COVID19 Vaccination Lio: 04/05/20 COVID19 Vaccine 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 Seasonal Allergies Seasonal Allergies: No Past Medical History Surgeries: Yes (EP PROCEDURE WITH ABLATION) Joint Replacement Respiratory: Yes (O2 DEPENDENT) Sleep Apnea, Emphysema Currently Using CPAP: Yes Currently Using BIPAP: No Cardiac: Yes (MITRAL VALVE REPAIR) Atrial Fibrillation, Hypertension, Valvular Heart Disease Neurological: No Headaches /Migraines Reproductive Disorders: No Sexually Transmitted Disease: No HIV/AIDS: No Genitourinary: Yes Kidney Stones Gastrointestinal: Yes Gastroesophageal Reflux, Hiatal Hernia Musculoskeletal: Yes (LEFT KNEE DJD, SPINAL STENOSIS, RESTLESS LEG SYNDROME) Arthritis, Fibromyalgia, Chronic Back Pain Endocrine: Yes (DIET CONTROLLED DIABETES) Diabetes, Non-Insulin dep HEENT: Yes (GLASSES, DENTURES) Cataract Loss of Vision: Denies Hearing Impairment: Hard of Hearing, Bilateral Hearing Aide Cancer: Yes Skin Did You Recieve Any Treatments: Yes What Type of Treatment Did You: Surgical Intervention Psychosocial: No Integumentary: No Blood Disorders: No Adverse Reaction/Blood Tranf: No (N/A) Family Medical History Cancer Physical Exam Vital Signs - First Documented 08/23/20 08/23/20 14:35 14:39 Temp 36.4 Pulse 70 Resp 18 B/P (MAP) 122/77 (92) Pulse Ox 92 O2 Delivery OxyMask O2 Flow Rate 15.00 Capillary Refill : Height: 5'11.00" Weight: 251lbs. 0.8oz. 112.180966xt; 29.00 BMI Method:Stated General Appearance: WD/WN, no apparent distress HEENT: PERRL/EOMI Focused Exam Lactate Level 08/23/20 14:43: Lactic Acid Level 1.71 Lactic Acid Level Laboratory Tests Test 08/23/20 14:43 Lactic Acid Level 1.71 MMOL/L (0.50-2.00) Procedures/Interventions Date of ETT Placement: Apr 18, 2019 Time of ETT Placement: 1511 Progress/Results/Core Measures Suspected Sepsis SIRS Temperature: Pulse: Respiratory Rate: Laboratory Tests 08/23/20 14:43: White Blood Count 18.1H Blood Pressure / Mean: 08/23/20 14:43: Lactic Acid Level 1.71 Laboratory Tests 08/23/20 14:43: Creatinine 0.91, Platelet Count 375, Total Bilirubin 1.0 Results/Orders Lab Results Laboratory Tests Test 08/23/20 14:35 08/23/20 14:43 Range/Units SARS-CoV-2 RNA (RT-PCR) Not Detected Not Detecte White Blood Count 18.1 H 4.3-11.0 10^3/uL Red Blood Count 4.33 4.30-5.52 10^6/uL Hemoglobin 13.3 13.3-17.7 g/dL Hematocrit 42 40-54 % Mean Corpuscular Volume 96 80-99 fL Mean Corpuscular Hemoglobin 31 25-34 pg Mean Corpuscular Hemoglobin Concent 32 32-36 g/dL Red Cell Distribution Width 15.7 H 10.0-14.5 % Platelet Count 375 130-400 10^3/uL Mean Platelet Volume 10.6 9.0-12.2 fL Immature Granulocyte % (Auto) 5 % Neutrophils (%) (Auto) 87 H 42-75 % Lymphocytes (%) (Auto) 3 L 12-44 % Monocytes (%) (Auto) 4 0-12 % Eosinophils (%) (Auto) 0 0-10 % Basophils (%) (Auto) 1 0-10 % Neutrophils # (Auto) 15.8 H 1.8-7.8 10^3/uL Lymphocytes # (Auto) 0.6 L 1.0-4.0 10^3/uL Monocytes # (Auto) 0.8 0.0-1.0 10^3/uL Eosinophils # (Auto) 0.0 0.0-0.3 10^3/uL Basophils # (Auto) 0.1 0.0-0.1 10^3/uL Immature Granulocyte # (Auto) 0.8 H 0.0-0.1 10^3/uL Neutrophils % (Manual) 88 % Lymphocytes % (Manual) 3 % Monocytes % (Manual) 7 % Eosinophils % (Manual) 1 % Myelocytes % 1 % Blood Morphology Comment NORMAL Sodium Level 134 L 135-145 MMOL/L Potassium Level 5.4 H 3.6-5.0 MMOL/L Chloride Level 104 98-107 MMOL/L Carbon Dioxide Level 18 L 21-32 MMOL/L Anion Gap 12 5-14 MMOL/L Blood Urea Nitrogen 25 H 7-18 MG/DL Creatinine 0.91 0.60-1.30 MG/DL Estimat Glomerular Filtration Rate > 60 BUN/Creatinine Ratio 27 Glucose Level 108 H 70-105 MG/DL Lactic Acid Level 1.71 0.50-2.00 MMOL/L Calcium Level 9.7 8.5-10.1 MG/DL Corrected Calcium 10.2 H 8.5-10.1 MG/DL Total Bilirubin 1.0 0.1-1.0 MG/DL Aspartate Amino Transf (AST/SGOT) 48 H 5-34 U/L Alanine Aminotransferase (ALT/SGPT) 78 H 0-55 U/L Alkaline Phosphatase 123 40-136 U/L Total Creatine Kinase 110 30-200 U/L Creatine Kinase MB 6.9 *H <6.6 NG/ML Troponin I < 0.028 <0.028 NG/ML B-Type Natriuretic Peptide 239.4 H <100.0 PG/ML Total Protein 7.6 6.4-8.2 GM/DL Albumin 3.4 3.2-4.5 GM/DL Procalcitonin 0.15 H <0.10 NG/ML My Orders Orders - KARTHIKEYAN GODOY MD Cbc With Automated Diff (08/23/20 14:50) Comprehensive Metabolic Panel (08/23/20 14:50) Blood Culture (08/23/20 14:50) Sputum Culture (08/23/20 14:50) Chest 1 View, Ap/Pa Only (08/23/20 14:50) Ed Iv/Invasive Line Start (08/23/20 14:50) Ed Iv/Invasive Line Start (08/23/20 14:50) Vital Signs Adult Sepsis Patie Q15M (08/23/20 14:50) O2 (08/23/20 14:50) Remove Rings In Anticipation O (08/23/20 14:50) Lactic Acid Analyzer (08/23/20 14:50) BNP (08/23/20 14:50) Troponin I (08/23/20 14:50) Creatine Kinase (08/23/20 14:50) Creatine Kinase Mb (08/23/20 14:50) Ekg Tracing (08/23/20 14:50) Covid 19 Inhouse Test (08/23/20 14:59) Manual Differential (08/23/20 14:43) Procalcitonin (Pct) (08/23/20 16:29) Ns Iv 1000 Ml (Sodium Chloride 0.9%) (08/23/20 16:45) Cefepime Injection (Maxipime Injection) (08/23/20 16:45) Vancomycin Injection (Vancomycin Injecti (08/23/20 16:45) Vital Signs/I&O 08/23/20 08/23/20 08/23/20 14:35 14:39 15:08 Temp 36.4 Pulse 70 73 Resp 18 31 B/P (MAP) 122/77 (92) Pulse Ox 92 92 98 O2 Delivery OxyMask OxyMask O2 Flow Rate 15.00 15.00 70.00 Capillary Refill : Progress Note : Time: 15:42 Progress Note discussed with his son - will admit to Dr Mauricio as Dr gibbs is out of town. Will admit to ICU for the night then stepdown as needed. Patient currently on bipap 15/6 50% and a rate of 14 on bipap ECG Initial ECG Impression Date: Aug 23, 2020 Initial ECG Impression Time: 14:35 Initial ECG Rate: 75 Initial ECG Rhythm: A Fib/Flutter Initial ECG Impression: Atrial Fibrillation Diagnostic Imaging Diagonstic Imaging: Xray Plain Films/CT/US/NM/MRI: chest Comments [facility], [place] NAME: JESSICA NOBLE [facility] REC#: [id number] PT STATUS: REG ER : 1940 PHYSICIAN: KARTHIKEYAN GODOY MD ADMIT DATE: 08/23/20/ER Draft Date of Exam:08/23/20 CHEST 1 VIEW, AP/PA ONLY EXAMINATION: Chest 1 view HISTORY: sepsis COMPARISON: 01/20/2020 FINDINGS: Median sternotomy wires are aligned. There has been progression of now severe airspace opacities in both lungs. No pleural effusion or pneumothorax. Heart size is unchanged. IMPRESSION: 1. Progression of now severe airspace opacities in the lungs. Dictated on workstation # [id number] Dict: 08/23/20 1543 Trans: 08/23/20 1544 [facility] [id number] Interpreted by: CJ CAMPBELL MD Electronically signed by: Critical Care Note Critical Care Start Time: 14:40 Stop Time: 16:00 Total Time (minutes) 60 minutes critical care time in the evaluation and management of this hypoxic patient. Time includes initial eval and treatment of hypoxia with simple face mask oxygen, transition to bipap; review and interpretation of labs/ ABG; multiple discussions with admitting provider; multiple reevaluations of patient; fluid resuscitation; multiple discussions with family, review of the medical records Departure Communication (Admissions) Time/Spoke to Admitting Phy: 15:[address] Mauricio, accepts the patient for admission to cardiac stepdown or ICU Impression Primary Impression: Acute and chronic respiratory failure with hypoxia Additional Impression: Sepsis Disposition: ADMITTED INPATIENT Condition: Critical Admissions Decision to Admit Reason: Admit from ER (General) Decision to Admit/Date: Aug 23, 2020 Time/Decision to Admit Time: 15:19 Departure-Patient Inst. Referrals: REJI GIBBS MD (PCP/Family) Primary Care Physician KARTHIKEYAN GODOY MD Aug 23, 2020 14:57
[2020-08-23 15:08] VITALS: BP 120/65
[2020-08-23 15:13] LABS: BASOPHILS # (AUTO) 0.1 10^3/uL (0.0-0.1); BASOPHILS % (AUTO) 1 % (0-10); EOSINOPHILS % (AUTO) 0 % (0-10); HEMATOCRIT 42 % (40-54); HEMOGLOBIN 13.3 g/dL (13.3-17.7); LYMPHOCYTES # (AUTO) 0.6 10^3/uL (1.0-4.0); LYMPHOCYTES % (AUTO) 3 % (12-44); MEAN CORPUSCULAR HEMOGLOBIN 31 pg (25-34); MEAN CORPUSCULAR HGB CONC 32 g/dL (32-36); MEAN CORPUSCULAR VOLUME 96 fL (80-99); MEAN PLATELET VOLUME 10.6 fL (9.0-12.2); MONOCYTES # (AUTO) 0.8 10^3/uL (0.0-1.0); MONOCYTES % (AUTO) 4 % (0-12); NEUTROPHILS # (AUTO) 15.8 10^3/uL (1.8-7.8); NEUTROPHILS % (AUTO) 87 % (42-75); PLATELET COUNT 375 10^3/uL (130-400); WHITE BLOOD COUNT 18.1 10^3/uL (4.3-11.0)
[2020-08-23 15:27] LABS: ALBUMIN 3.4 GM/DL (3.2-4.5); CHLORIDE 104 MMOL/L (98-107); POTASSIUM 5.4 MMOL/L (3.6-5.0); SODIUM 134 MMOL/L (135-145)
[2020-08-23 15:28] LABS: CALCIUM 9.7 MG/DL (8.5-10.1)
[2020-08-23 15:29] LABS: GLUCOSE 108 MG/DL (70-105); TOTAL PROTEIN 7.6 GM/DL (6.4-8.2)
[2020-08-23 15:30] LABS: CARBON DIOXIDE 18 MMOL/L (21-32)
[2020-08-23 15:33] LABS: ALKALINE PHOSPHATASE 123 U/L (40-136); CREATININE SERUM 0.91 MG/DL (0.60-1.30); GFR ESTIMATED > 60
[2020-08-23 15:34] LABS: BUN/CREATININE RATIO 27
[2020-08-23 15:36] LABS: ALANINE AMINOTRANSFERASE 78 U/L (0-55); CREATINE KINASE 110 U/L (30-200)
--- NOTE | 2020-08-23 15:45 | Diagnostic Imaging Report ---
EXAMINATION: Chest 1 view HISTORY: sepsis COMPARISON: 01/20/2020 FINDINGS: Median sternotomy wires are aligned. There has been progression of now severe airspace opacities in both lungs. No pleural effusion or pneumothorax. Heart size is unchanged. IMPRESSION: 1. Progression of now severe airspace opacities in the lungs. Dictated by: Dictated on workstation # [id number]
[2020-08-23 15:56] LABS: CREATINE KINASE MB 6.9 NG/ML (<6.6)
[2020-08-23 16:37] LABS: EOSINOPHILS % (MANUAL) 1 %; LYMPHOCYTES % (MANUAL) 3 %; MONOCYTES % (MANUAL) 7 %; MYELOCYTES % 1 %; NEUTROPHILS % (MANUAL) 88 %; RBC MORPH NORMAL
[2020-08-23] MEDS ORDERED: CEFEPIME INJECTION 1,000 MG in WATER (STERILE) FOR INJECTION 10 ML IV ONE (16:45)
[2020-08-23] MEDS ORDERED: VANCOMYCIN INJECTION 1,000 MG in NS (IVPB) 250 ML IV ONE (16:45)
[2020-08-23] MEDS ORDERED: NS IV 1000 ML 1,000 ML IV SCH ×2 (16:45→18:30)
[2020-08-23] MEDS ORDERED: VANCOMYCIN INJECTION 0.1 MG in NS (IVPB) 250 ML IV SCH (18:15)
[2020-08-23] MEDS ORDERED: ACETAMINOPHEN 325 MG TABLET PO PRN (18:15)
[2020-08-23 18:27] VITALS: BP 121/106
[2020-08-23] MEDS ORDERED: CATHETER FLUSH 10 ML SYR IV PRN (18:30)
[2020-08-23 18:31] VITALS: BP 120/65
[2020-08-23] MEDS ORDERED: RT-ALBUTEROL/IPRATROPIUM 3 ML (DUONEB) VIAL INH PRN (18:45)
--- NOTE | 2020-08-23 18:52 | Tele-ICU Consult ---
History of Present Illness History of Present Illness Date Seen by Provider: Aug 23, 2020 Time Seen by Provider: 18:52 Date of Admission Allergies and Home Medications Allergies Coded Allergies: shellfish derived (Unverified Allergy, Severe, ANAPHYLAXIS, 02/18/19) meperidine (Unverified Allergy, Intermediate, LOW BP, N/V, 02/18/19) Home Medications Albuterol Sulfate 1 Puff Puff, 2 PUFF INH Q4H PRN for SHORTNESS OF BREATH, (Reported) Diltiazem HCl 120 Mg Cap.er.24h, 120 MG PO HS Prescribed by: REJI GIBBS on 01/02/20930 Diltiazem HCl 180 Mg Cap.er.24h, 180 MG PO DAILY Prescribed by: REJI GIBBS on 01/02/20930 Dronedarone HCl 400 Mg Tablet, 400 MG PO BID Prescribed by: REJI GIBBS on 01/02/20930 Fluticasone/Umeclidin/Vilanter 1 Each Blst.w.dev, 1 PUFF INH DAILY, (Reported) Furosemide 20 Mg Tablet, 20 MG PO DAILY, (Reported) Gemfibrozil 600 Mg Tablet, 600 MG PO BID, (Reported) Ipratropium/Albuterol Sulfate 3 Ml Ampul.neb, 3 ML INH TID Prescribed by: REJI GIBBS on 01/02/20930 Melatonin 3 Mg Tablet, 6-9 MG PO HS PRN for SLEEP, (Reported) TAKES 2 OR 3 (3MG) TABLETS Montelukast Sodium 10 Mg Tablet, 10 MG PO DAILY, (Reported) Omeprazole 40 Mg Capsule.dr, 40 MG PO HS, (Reported) Pravastatin Sodium 20 Mg Tablet, 20 MG PO DAILY, (Reported) Prednisone 20 Mg Tab, 40 MG PO UD 2tab/day x2days then 1.5tab x 2days then 1tab x2 days then 0.5tab x 2 days then stop Prescribed by: REJI GIBBS on 01/02/20930 Rivaroxaban 20 Mg Tablet, 20 MG PO DAILY Prescribed by: REJI GIBBS on 01/02/20930 Sildenafil Citrate 20 Mg Tablet, 50 MG PO DAILY PRN for ED, (Reported) TAKES 2 & 1/2 (20MG) TABLETS Spironolactone 25 Mg Tablet, 25 MG PO DAILY Prescribed by: REJI GIBBS on 01/02/20 0931 Tamsulosin HCl 0.4 Mg Cap, 0.4 MG PO DAILY, (Reported) Testosterone Cypionate 200 Mg/1 Ml Vial, 200 MG INJ EVERY 2 WEEKS, (Reported) Tramadol HCl 50 Mg Tablet, 50-100 MG PO QID PRN for PAIN-MODERATE, (Reported) Past Medical/Social/Family Hx Patient Social History Tobacco Use?: No Smoking Status: Former Smoker Smokeless Tobacco Frequency: Never a User Use of E-Cig and/or Vaping dev: No E-Cig and/or Vaping Freq: Never a User Substance use?: No Alcohol Use?: No Pt stated abuse/neglect: No Immunizations Up To Date Influenza Vaccine Up-to-Date: Yes; Up-to-Date First/Initial COVID19 Vaccinat: 03/08/20 Second COVID19 Vaccination Lio: 04/05/20 Tetanus Booster (TDap): Unknown Hepatitis A: No Hepatitis B: No TB Skin Test: None Date of Pneumonia Vaccine: Apr 17, 2016 Current Status Advance Directives: No Advance Directive Location: Home Communicates: Verbally Primary Language: Salvadorean Preferred Spoken Language: Salvadorean Is interpretation needed?: No Sensory deficits: Hearing impairment Implanted or Applied Medical D: None, Heart mechanical device Review of Systems Constitutional: see HPI Sepsis Event Evaluation Height, Weight, BMI Height: 5'11.00" Weight: 251lbs. 0.8oz. 112.175045wy; 30.77 BMI Method:Stated Exam Exam Patient acknowledged, consented, and participated in this virtual visit which was conducted using real time audio/video Vital Signs Date Time Temp Pulse Resp B/P (MAP) Pulse Ox O2 Delivery O2 Flow Rate FiO2 08/23/20 18:36 NIV Bilevel 08/23/20 18:31 36.4 73 98 70 08/23/20 18:27 72 29 98 65.00 08/23/20 18:08 36.6 71 28 137/62 (87) 94 65.00 08/23/20 15:08 73 31 98 70.00 08/23/20 14:39 36.4 70 18 122/77 (92) 92 OxyMask 15.00 08/23/20 14:35 92 OxyMask 15.00 Height & Weight Height: 5'11.00" Weight: 251lbs. 0.8oz. 112.090331gc; 30.77 BMI Method:Stated General Appearance: Mild Distress Capillary Refill: Less Than 3 Seconds Results Lab Laboratory Tests 08/23/20 14:43 Assessment/Plan Assessment/Plan (Tele-ICU Physician , consultation) Available chart/ vitals / labs / Images reviewed H&P is from ER notes Patient's information available about PMH, Shx, Fhx allergy reviewed in EMR. ROS as per chart and RN report Patient admitted 08/23 WITH SOB AND HEMOPTYSIS AND HYPOXIC ON CHRONIC 6L o2- > bipap 24/07 50% Now in ICU, hemodynamically stable Video assessment done using teleICU camera, rest of exam as per RN Discussed with RN. Consultants: A/P Acute on chronic resp failure - bipap 24/07 rr 14 ( sp rr > 40 ) 60%, tv 1l , MV > 40 L , BUT PATIENT IS MOVING A LOT ( WTHOUT HELP) , TALKING PNA - will cover with abx - in er given vanco and cefepime - to cont -, will cx sputum - covis swab (-)ve COPD - last CT chest 06/2020 with severe emphysematous changes upper lobes , chronic plural scarring , some fibrotic changes - on chronic prednisone - cont now - ? needs for IV Severe pulm HTN , most likely due to lung DZ , RVSP 65mm Hg by ECHO - on sildenafil Hemoptysis - due to combination of infection and coagulopathy in face of pHTN - monitor - if agressive bleeding will need intubation / bronch / embolization ECHO 12/2019 - EF 55%, PAF , s/p ablation/ cardioversion - on AC with Xarelto , and with INR 1.9 DM - ISS , as per PCP WILL TRY TO CHANGE TO VAPOTHERM AND REASSESS 1. RR AND WOB 2. EXTENT OF HEMOPTYSIS - ? NEEDS FOR REVERSAL AC Plans in collaboration with bedside consultants and IM MDs. Discussed with RN to reach out if any questions or concerns - WILL UPDATE WHEN PATIENT WILL BE TRIED ON VAPOTHERM A total of 37 minutes of critical care time was devoted to this patient today, required to treat and/or prevent further deterioration of critical care condition ( as above ) . CASSIA WEST MD Aug 23, 2020 18:52
[2020-08-23] MEDS ORDERED: VANCOMYCIN 750 MG/NS 250 ML IVPB IV NR ×2 (19:00)
[2020-08-23] MEDS: NS IV 1000 ML 1,000 ML IV SCH (19:29)
--- NOTE | 2020-08-23 20:23 | Tele-ICU Progress Note ---
Subjective Date Seen by a Provider: Aug 23, 2020 Time Seen by a Provider: 20:18 Subjective/Events-last exam spoke to RN, not having hemoptysis right now but is anxious, will start on IV Precedex, on BiPAP, ok with intubation if felt to be short term INR 1.9, has been on Eliquis Sepsis Event Evaluation Height, Weight, BMI Height: 5'11.00" Weight: 251lbs. 0.8oz. 112.950084pb; 30.77 BMI Method:Stated Focused Exam Lactate Level 08/23/20 14:43: Lactic Acid Level 1.71 Exam Exam Patient acknowledged, consented, and participated in this virtual visit which was conducted using real time audio/video Vital Signs Date Time Temp Pulse Resp B/P (MAP) Pulse Ox O2 Delivery O2 Flow Rate FiO2 08/23/20 18:36 NIV Bilevel 08/23/20 18:31 36.4 73 98 70 08/23/20 18:27 72 29 98 65.00 08/23/20 18:08 36.6 71 28 137/62 (87) 94 65.00 08/23/20 15:08 73 31 98 70.00 08/23/20 14:39 36.4 70 18 122/77 (92) 92 OxyMask 15.00 08/23/20 14:35 92 OxyMask 15.00 Height & Weight Height: 5'11.00" Weight: 251lbs. 0.8oz. 112.909847vw; 30.77 BMI Method:Stated General Appearance: Mild Distress Capillary Refill: Less Than 3 Seconds Results Lab Laboratory Tests 08/23/20 14:43 Assessment/Plan Assessment/Plan hemoptysis pulm htn, will continue BiPAP if hemoptysis returns may need bronchoscopy and/or IR Evangelista German MD Critical Care: Critically Ill Patient Time spent with patient (mins): 15 RENAY GERMAN MD Aug 23, 2020 20:23
[2020-08-23] MEDS: DexMEDEtomidine 250 ML DRIP 250 ML IV SCH (21:17)
[2020-08-23 21:27] VITALS: BP 121/106
[2020-08-23] MEDS: RT-ALBUTEROL/IPRATROPIUM 3 ML (DUONEB) VIAL INH SCH (21:27)
[2020-08-24] VITALS (7 sets, daily range): BP systolic 92–189; BP diastolic 47–119
[2020-08-24] MEDS: CEFEPIME INJECTION 1,000 MG in WATER (STERILE) FOR INJECTION 10 ML IV SCH ×5 (00:49→23:43)
[2020-08-24] MEDS: RT-ALBUTEROL/IPRATROPIUM 3 ML (DUONEB) VIAL INH SCH ×6 (01:58→21:36)
[2020-08-24] MEDS: NS IV 1000 ML 1,000 ML IV SCH ×4 (03:39→21:32)
[2020-08-24 04:14] LABS: BASOPHILS % (AUTO) 0 % (0-10); EOSINOPHILS % (AUTO) 0 % (0-10); HEMATOCRIT 36 % (40-54); HEMOGLOBIN 11.7 g/dL (13.3-17.7); LYMPHOCYTES # (AUTO) 0.6 10^3/uL (1.0-4.0); LYMPHOCYTES % (AUTO) 3 % (12-44); MEAN CORPUSCULAR HEMOGLOBIN 31 pg (25-34); MEAN CORPUSCULAR HGB CONC 33 g/dL (32-36); MEAN CORPUSCULAR VOLUME 94 fL (80-99); MEAN PLATELET VOLUME 9.4 fL (9.0-12.2); MONOCYTES # (AUTO) 0.8 10^3/uL (0.0-1.0); MONOCYTES % (AUTO) 4 % (0-12); NEUTROPHILS # (AUTO) 16.5 10^3/uL (1.8-7.8); NEUTROPHILS % (AUTO) 90 % (42-75); PLATELET COUNT 374 10^3/uL (130-400); WHITE BLOOD COUNT 18.3 10^3/uL (4.3-11.0)
[2020-08-24] MEDS ORDERED: PROPOFOL DRIP (ICU) 100 ML IV ONE (04:22)
[2020-08-24 04:42] LABS: CHLORIDE 105 MMOL/L (98-107); POTASSIUM 4.7 MMOL/L (3.6-5.0); SODIUM 133 MMOL/L (135-145)
[2020-08-24 04:43] LABS: GLUCOSE 94 MG/DL (70-105)
[2020-08-24 04:45] LABS: CARBON DIOXIDE 20 MMOL/L (21-32)
[2020-08-24 04:47] LABS: CREATININE SERUM 0.71 MG/DL (0.60-1.30); GFR ESTIMATED > 60
[2020-08-24 04:48] LABS: BUN/CREATININE RATIO 25
[2020-08-24 05:36] LABS: MAGNESIUM 2.2 MG/DL (1.6-2.4)
[2020-08-24] MEDS: RT--FLUTICASONE/SALMETEROL 232-14 (AIRDUO RespiCLICK) IH SCH ×2 (06:00→18:36)
--- NOTE | 2020-08-24 06:05 | Diagnostic Imaging Report ---
INDICATION: OG and ET tube placement. FINDINGS: ET tube lower thoracic trachea. OG catheter extends into the distal stomach. There are extensive 5 lobe infiltrates and prominence of the cardiac silhouette. Sternal wire is midline. There is blunting of the right angle likely at least small right pleural effusion. Pulmonary infiltrates have progressed in density in the right lung. IMPRESSION: Visualized support apparatus projects in good alignment. Severe and worsened 5 lobe infiltrates with likely small right pleural effusion. Dictated by: Dictated on workstation # [id number]
[2020-08-24 06:08] LABS: ABG BASE EXCESS -3.3 MMOL/L (-2.5-2.5); ABG OXYGEN SATURATION 81 % (94-100); ABG PO2 69 MMHG (79-93); ABG TCO2 28.5 MMOL/L (21.0-31.0); ALLENS TEST ART LINE
[2020-08-24 06:09] LABS: INSPIRED O2 100%; PATIENT TEMP 36.5; VENTILATOR YES
[2020-08-24 06:10] LABS: ABG PCO2 88 MMHG (35-45); ABG PH 7.09 (7.37-7.43)
[2020-08-24] MEDS: VANCOMYCIN 1250 MG/NS 250 ML IVPB IV SCH ×4 (06:15→17:54)
[2020-08-24] MEDS: KCL 20 MEQ TAB (K-DUR) PO SCH (06:16)
[2020-08-24] MEDS: POTASSIUM CL 10MEQ/50ML IVPB 50 ML IV SCH (06:16)
[2020-08-24] MEDS: MAGNESIUM 1 GM/100 ML IVPB 100 ML IV SCH (06:16)
--- NOTE | 2020-08-24 06:50 | Occ Therapy Progress Note ---
Therapy Progress Note Orders received. Pt is currently intubated. OT will monitor pt status and initiate treatment when pt is medically stable and able to actively participate in skilled therapy. YARA MEDRANO Aug 24, 2020 06:50
--- NOTE | 2020-08-24 07:39 | Diagnostic Imaging Report ---
INDICATION: Respiratory distress. Compared with exam earlier the same date. This film is timed 6:47 a.m. and the comparison is 5:07 a.m. FINDINGS: There is severe 5 lobe airspace disease showing no appreciable change. An ET tube projects over the midthoracic trachea. Dobbhoff or feeding catheter goes beneath the diaphragm. Sternal wires unremarkable. No pneumothorax. IMPRESSION: No real change in severe 5 lobe airspace disease and support apparatus. Dictated by: Dictated on workstation # [id number]
--- NOTE | 2020-08-24 07:45 | Tele-ICU Progress Note ---
Subjective Date Seen by a Provider: Aug 24, 2020 Time Seen by a Provider: 07:40 Subjective/Events-last exam He is admitted about a day ago with history of extensive emphysema, interstitial lung disease on home oxygen 5 to 6 L of presented to the emergency room with increasing shortness of breath and found to be hypoxic even on 10 L of oxygen. Chest x-ray showed increasing infiltrates. He is admitted for further evalua tion and management admitted this a.m. his respiratory status got no worse and the blood gases revealed acute and chronic respiratory acidosis hence he is intubated and put on mechanical ventilation. He is currently has a borderline blood pressure. He does not have a central line. He has a history for hemoptysis upon admission. However he is on Xarelto per paroxysmal atrial fibrillation. And awaiting for INR. This a.m. I made a video visit and discussed with the bedside RN and reviewed the vent settings and gave further orders including chest x-rays and labs. Apparently he is a DO NOT RESUSCITATE but could be intubated. He is started on broad-spectrum antibiotic for possible pneumonia superimposed on his chronic lung disease. He is also on prednisone chronically. Sepsis Event Evaluation Height, Weight, BMI Height: 5'11.00" Weight: 251lbs. 0.8oz. 112.911508lx; 30.77 BMI Method:Stated Focused Exam Lactate Level 08/23/20 14:43: Lactic Acid Level 1.71 Exam Exam Patient acknowledged, consented, and participated in this virtual visit which was conducted using real time audio/video Vital Signs Date Time Temp Pulse Resp B/P (MAP) Pulse Ox O2 Delivery O2 Flow Rate FiO2 08/24/20 07:00 76 08/24/20 06:00 81 19 84 Mechanical Ventilator 100.00 08/24/20 05:11 86 18 95 100 08/24/20 05:00 87 18 189/119 (142) 89 Mechanical Ventilator 100.00 08/24/20 04:49 Mechanical Ventilator 100.00 08/24/20 04:00 65 26 143/107 (119) 88 NIV Bilevel 100.00 08/24/20 04:00 NIV Bilevel 08/24/20 03:00 64 35 134/82 (99) 91 NIV Bilevel 100.00 08/24/20 02:00 67 29 128/76 (93) 92 NIV Bilevel 100.00 08/24/20 01:58 65 29 94 100.00 08/24/20 01:00 73 31 113/68 (83) 91 NIV Bilevel 100.00 08/24/20 01:00 73 08/24/20 00:00 NIV Bilevel 08/24/20 00:00 73 30 137/77 (97) 91 NIV Bilevel 100.00 08/23/20 23:00 73 23 120/65 (83) 94 NIV Bilevel 100.00 08/23/20 22:00 81 33 136/99 (111) 96 NIV Bilevel 100.00 08/23/20 21:30 78 40 144/76 (98) 89 NIV Bilevel 100.00 08/23/20 21:27 84 39 81 100.00 08/23/20 21:17 65 136/84 08/23/20 21:00 76 60 132/84 (100) 92 NIV Bilevel 65.00 08/23/20 20:00 83 50 133/64 (87) 93 NIV Bilevel 65.00 08/23/20 20:00 NIV Bilevel 08/23/20 19:00 75 35 134/73 (93) 89 65.00 08/23/20 18:53 76 08/23/20 18:36 NIV Bilevel 08/23/20 18:31 36.4 73 98 70 08/23/20 18:27 72 29 98 65.00 08/23/20 18:08 36.6 71 28 137/62 (87) 94 65.00 08/23/20 15:08 73 31 98 70.00 08/23/20 14:39 36.4 70 18 122/77 (92) 92 OxyMask 15.00 08/23/20 14:35 92 OxyMask 15.00 I & O 08/24/20 07:00 Intake Total 0 ml Output Total 1375 ml Balance -1375 ml Height & Weight Height: 5'11.00" Weight: 251lbs. 0.8oz. 112.830567st; 30.77 BMI Method:Stated General Appearance: Mild Distress Capillary Refill: Less Than 3 Seconds Other comments ROS PER ATTENDING PHYSICIAN Results Lab Laboratory Tests 08/23/20 14:43 08/24/20 03:29 Meds REVIEWED. Radiology REVIEWED BY ME PERSONALLY. SHOWED NIKKY. EXTENSIVE INFILTRATES. ET ABOVE HAYDEE Assessment/Plan Assessment/Plan 1. Acute on chronic hypoxic and hypercarbic respiratory failure secondary to underlying emphysema, ILD and possibly superimposed pneumonia. 2. Hypotension could be due to volume deficiency as well as adrenal insufficiency in this patient who is acutely ill and he is on a chronically on prednisone. 3. History of paroxysmal atrial fibrillation was on Xarelto currently on hold 4. Chronic end-stage emphysema history. 5. History of pulmonary hypertension on sildenafil. 6. Hemoptysis probably due to pneumonia in a patient on chr. anticoagulation Recommendations 1. Continue mechanical ventilation with a tidal volume of 500, FiO2 100%, respiratory rate 22 and a PEEP of 14. We will repeat a blood gas in 2 hours and reassess the patient. 2. We will get a PICC consultation as he may need vasopressors. 3. We will start on IV hydrocortisone for stress dose. 4. He is on a subcutaneous heparin for DVT prophylaxis. 5. His overall prognosis is poor. 6. He is a DNR status but okay with intubation apparently. 7. Broad-spectrum antibiotics with cefepime and vancomycin. 8. Ulcer prophylaxis with Protonix. 9. I have discussed with the bedside RN and made a video visit. 10. We will continue to monitor his CBC CMP and blood gases periodically. Critical Care: Ventilator Management Time spent with patient (mins): 45 Diagnosis/Problems Diagnosis/Problems (1) Steroid-dependent COPD (2) Hemoptysis, unspecified (3) Bilateral pneumonia (4) Acute and chronic respiratory failure (5) Paroxysmal atrial fibrillation RIAZ HERNANDEZ MD Aug 24, 2020 07:45
[2020-08-24] MEDS ORDERED: HYDROCORTISONE 100 MG/2 ML (Solu-CORTEF) VIAL IV ONE (08:00)
[2020-08-24] MEDS ORDERED: FLUTICASONE/VILANTEROL 200 MCG 14'S (BREO) IH SCH (08:00)
--- NOTE | 2020-08-24 08:03 | Physical Therapy Progress Note ---
Therapy Progress Note Patient currently sedated and intubated. PT will continue to monitor patient status and initiate treatment when patient is able to actively participate with skilled therapy. ЮЛИЯ DONNELLY PT Aug 24, 2020 08:03
[2020-08-24] MEDS ORDERED: NOREPINEPHRINE 8 MG/250 ML 250 ML IV ONE ×2 (08:25→17:51)
[2020-08-24] MEDS: PANTOPRAZOLE 40 MG (PROTONIX) VIAL IV SCH (09:16)
[2020-08-24] MEDS: NOREPINEPHRINE 8 MG/250 ML 250 ML IV SCH ×2 (09:43→17:54)
[2020-08-24] MEDS ORDERED: NS IV 500 ML 500 ML IV SCH (09:45)
[2020-08-24 10:29] LABS: ABG BASE EXCESS -5.5 MMOL/L (-2.5-2.5); ABG OXYGEN SATURATION 95 % (94-100); ABG PCO2 57 MMHG (35-45); ABG PO2 97 MMHG (79-93); ABG TCO2 23.3 MMOL/L (21.0-31.0)
[2020-08-24 10:31] LABS: INSPIRED O2 100%; PATIENT TEMP 36.2; VENTILATOR YES
[2020-08-24] MEDS: PROPOFOL DRIP (ICU) 100 ML IV SCH ×4 (10:53→22:41)
[2020-08-24] MEDS: DexMEDEtomidine 250 ML DRIP 250 ML IV SCH ×2 (10:57→23:42)
[2020-08-24] MEDS: inSUlin ASPART (NovoLOG) 1 UNIT/0.01 ML (CHARGE PER UNIT) SC SCH ×3 (11:35→23:18)
--- NOTE | 2020-08-24 12:49 | History & Physical ---
History of Present Illness History of Present Illness Reason for visit/HPI This is a 80 year old male patient of Dr. Pruitt'naren who is also known to this provider from previous admission. 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 He also has a history of atrial fibrillaiton and is on Xarelto. He presented to the emergency room with worsening shortness of air and hemoptysis. He was found to be hypoxic in the emergency room even on 10liters of oxygen. He was placed on BIPAP. His CXR showed extensive air space disease with possible new opacities. His WBC count was 18,000. He was admitted to the ICU on BIPAP with IV Vancomycine and IV Cefepime. He has been a DNR in the past but apparently agreed in the ER to be intubated if needed. He is now sedated on the ventilator as of early this morning. Date of Admission Aug 23, 2020 at 16:35 Date Seen by a Provider: Aug 24, 2020 Time Seen by a Provider: 08:45 I consulted on this patient on 08/24/20 12:42 Attending Physician Aubree Galvan DO Admitting Physician Reji Pruitt MD Consult Allergies and Home Medications Allergies Coded Allergies: shellfish derived (Unverified Allergy, Severe, ANAPHYLAXIS, 02/18/19) meperidine (Unverified Allergy, Intermediate, LOW BP, N/V, 02/18/19) Home Medications Albuterol Sulfate 1 Puff Puff, 2 PUFF INH Q4H PRN for SHORTNESS OF BREATH, (Reported) Diltiazem HCl 120 Mg Cap.er.24h, 120 MG PO HS Prescribed by: RJEI PRUITT on 01/02/20930 Diltiazem HCl 180 Mg Cap.er.24h, 180 MG PO DAILY Prescribed by: REJI PRUITT on 01/02/20930 Dronedarone HCl 400 Mg Tablet, 400 MG PO BID Prescribed by: REJI PRUITT on 01/02/20930 Fluticasone/Umeclidin/Vilanter 1 Each Blst.w.dev, 1 PUFF INH DAILY, (Reported) Furosemide 20 Mg Tablet, 20 MG PO DAILY, (Reported) Gemfibrozil 600 Mg Tablet, 600 MG PO BID, (Reported) Ipratropium/Albuterol Sulfate 3 Ml Ampul.neb, 3 ML INH TID Prescribed by: REJI PRUITT on 01/02/20930 Melatonin 3 Mg Tablet, 6-9 MG PO HS PRN for SLEEP, (Reported) TAKES 2 OR 3 (3MG) TABLETS Montelukast Sodium 10 Mg Tablet, 10 MG PO DAILY, (Reported) Omeprazole 40 Mg Capsule.dr, 40 MG PO HS, (Reported) Pravastatin Sodium 20 Mg Tablet, 20 MG PO DAILY, (Reported) Prednisone 20 Mg Tab, 40 MG PO UD 2tab/day x2days then 1.5tab x 2days then 1tab x2 days then 0.5tab x 2 days then stop Prescribed by: REJI PRUITT on 01/02/20930 Rivaroxaban 20 Mg Tablet, 20 MG PO DAILY Prescribed by: REJI PRUITT on 01/02/20930 Sildenafil Citrate 20 Mg Tablet, 50 MG PO DAILY PRN for ED, (Reported) TAKES 2 & 1/2 (20MG) TABLETS Spironolactone 25 Mg Tablet, 25 MG PO DAILY Prescribed by: REJI PRUITT on 01/02/20930 Tamsulosin HCl 0.4 Mg Cap, 0.4 MG PO DAILY, (Reported) Testosterone Cypionate 200 Mg/1 Ml Vial, 200 MG INJ EVERY 2 WEEKS, (Reported) Tramadol HCl 50 Mg Tablet, 50-100 MG PO QID PRN for PAIN-MODERATE, (Reported) Patient Home Medication List Home Medication List Reviewed: Yes Past Hdzvkzz-Idgmgl-Calqre Hx Patient Social History Marrital Status: Tobacco Use?: No Smoking Status: Former Smoker Smokeless Tobacco Frequency: Never a User Use of E-Cig and/or Vaping dev: No Use of E-Cig and/or Vaping Dennys: Never a User Substance use?: No Alcohol Use?: No Pt feels they are or have been: No Immunizations Up To Date Date of Influenza Vaccine: Nov 10, 2019 First/Initial COVID19 Vaccinat: 03/08/20 Second COVID19 Vaccination Lio: 04/05/20 Tetanus Booster (TDap): Unknown Hepatitis A: No Hepatitis B: No Date of Pneumonia Vaccine: Apr 17, 2016 Seasonal Allergies Seasonal Allergies: No Current Status Advance Directives: No Advance Directive Location: Home Communicates: Verbally Primary Language: Bengali Preferred Spoken Language: Bengali Is interpretation needed?: No Sensory deficits: Hearing impairment Implanted or Applied Medical D: None, Heart mechanical device Past Medical History Surgeries: Joint Replacement Sleep Apnea, Emphysema Currently Using CPAP: Yes Currently Using BIPAP: No Atrial Fibrillation, Hypertension, Valvular Heart Disease Headaches /Migraines Sexually Transmitted Disease: No HIV/AIDS: No Kidney Stones Gastroesophageal Reflux, Hiatal Hernia Arthritis, Fibromyalgia, Chronic Back Pain Diabetes, Non-Insulin dep Cataract Loss of Vision: Denies Hearing Impairment: Hard of Hearing, Bilateral Hearing Aide Skin Did You Recieve Any Treatments: Yes What Type of Treatment Did You: Surgical Intervention Blood Disorders: No Adverse Reaction/Blood Tranf: No (N/A) Family Medical History Cancer Review of Systems Constitutional: weakness EENTM: No see HPI, No no symptoms reported, No ear discharge, No hearing loss, No ear pain, No blurred vision, No double vision, No eye pain, No tearing, No vision loss, No dental problems, No hoarseness, No mouth pain, No mouth swelling, No epistaxis, No nose congestion, No nose pain, No throat pain, No throat swelling, No other Respiratory: cough, dyspnea on exertion, hemoptysis, orthopnea, short of breath, wheezing Cardiovascular: other (history of atrial fibrillation) Genitourinary: No no symptoms reported, No see HPI, No decreased output, No discharge, No dysuria, No frequency, No hematuria, No hesitancy, No incontinence, No nocturia, No pain, No other Musculoskeletal: muscle weakness Skin: No no symptoms reported, No see HPI, No change in color, No change in hair/nails, No dryness, No hx of skin cancer, No lesions, No lumps, No pruritus, No rash, No other Psychiatric/Neurological: Weakness Physical Exam Vital Signs Vital Signs - First Documented 08/23/20 08/23/20 08/23/20 14:35 14:39 18:31 Temp 36.4 Pulse 70 Resp 18 B/P (MAP) 122/77 (92) Pulse Ox 92 O2 Delivery OxyMask O2 Flow Rate 15.00 FiO2 70 Capillary Refill : Less Than 3 Seconds Height, Weight, BMI Height: 5'11.00" Weight: 251lbs. 0.8oz. 112.632014uq; 30.77 BMI Method:Stated General Appearance: Other (sedated on ventilator) Neck: Supple Respiratory: Decreased Breath Sounds, Rales Cardiovascular: Regular Rate, Rhythm, Systolic Murmur Gastrointestinal: Normal Bowel Sounds, Soft Extremity: No Pedal Edema Neurologic/Psychiatric: Other (sedated on ventilator) Skin: Ecchymosis (to forearms) Comments Laboratory Tests 08/23/20 14:35: SARS-CoV-2 RNA (RT-PCR) Not Detected 08/23/20 14:43: White Blood Count 18.1H, Red Blood Count 4.33, Hemoglobin 13.3, Hematocrit 42, Mean Corpuscular Volume 96, Mean Corpuscular Hemoglobin 31, Mean Corpuscular Hemoglobin Concent 32, Red Cell Distribution Width 15.7H, Platelet Count 375, Mean Platelet Volume 10.6, Immature Granulocyte % (Auto) 5, Neutrophils (%) (Auto) 87H, Lymphocytes (%) (Auto) 3L, Monocytes (%) (Auto) 4, Eosinophils (%) (Auto) 0, Basophils (%) (Auto) 1, Neutrophils # (Auto) 15.8H, Lymphocytes # (Auto) 0.6L, Monocytes # (Auto) 0.8, Eosinophils # (Auto) 0.0, Basophils # (Auto) 0.1, Immature Granulocyte # (Auto) 0.8H, Neutrophils % (Manual) 88, Lymphocytes % (Manual) 3, Monocytes % (Manual) 7, Eosinophils % (Manual) 1, Myelocytes % 1, Blood Morphology Comment NORMAL, Sodium Level 134L, Potassium Level 5.4H, Chloride Level 104, Carbon Dioxide Level 18L, Anion Gap 12, Blood Urea Nitrogen 25H, Creatinine 0.91, Estimat Glomerular Filtration Rate > 60, BUN/Creatinine Ratio 27, Glucose Level 108H, Lactic Acid Level 1.71, Calcium Level 9.7, Corrected Calcium 10.2H, Total Bilirubin 1.0, Aspartate Amino Transf (AST/SGOT) 48H, Alanine Aminotransferase (ALT/SGPT) 78H, Alkaline Phosphatase 123, Total Creatine Kinase 110, Creatine Kinase MB 6.9*H, Troponin I < 0.028, B- Type Natriuretic Peptide 239.4H, Total Protein 7.6, Albumin 3.4, Procalcitonin 0.15H 08/24/20 03:29: White Blood Count 18.3H, Red Blood Count 3.80L, Hemoglobin 11.7L, Hematocrit 36L , Mean Corpuscular Volume 94, Mean Corpuscular Hemoglobin 31, Mean Corpuscular Hemoglobin Concent 33, Red Cell Distribution Width 15.5H, Platelet Count 374, Mean Platelet Volume 9.4, Immature Granulocyte % (Auto) 2, Neutrophils (%) (Auto) 90H, Lymphocytes (%) (Auto) 3L, Monocytes (%) (Auto) 4, Eosinophils (%) (Auto) 0, Basophils (%) (Auto) 0, Neutrophils # (Auto) 16.5H, Lymphocytes # (Auto) 0.6L, Monocytes # (Auto) 0.8, Eosinophils # (Auto) 0.0, Basophils # (Auto) 0.0, Immature Granulocyte # (Auto) 0.4H, Sodium Level 133L, Potassium Level 4.7, Chloride Level 105, Carbon Dioxide Level 20L, Anion Gap 8, Blood Urea Nitrogen 18, Creatinine 0.71, Estimat Glomerular Filtration Rate > 60, BUN/Creatinine Ratio 25, Glucose Level 94, Calcium Level 9.0, Magnesium Level 2.2, Triglycerides Level 65 08/24/20 05:57: Blood Gas Puncture Site L RAD ARTLINE, Blood Gas Patient Temperature 36.5, Arterial Blood pH 7.09*L, Arterial Blood Partial Pressure CO2 88*H, Arterial Blood Partial Pressure O2 69L, Arterial Blood HCO3 26, Arterial Blood Total CO2 28.5, Arterial Blood Oxygen Saturation 81L, Arterial Blood Base Excess -3.3L, Alexy Test ART LINE, Blood Gas Ventilator Setting YES, Blood Gas Inspired Oxygen 100% 08/24/20 10:20: Blood Gas Puncture Site NA, Blood Gas Patient Temperature 36.2, Arterial Blood pH 7.20*L, Arterial Blood Partial Pressure CO2 57H, Arterial Blood Partial P ressure O2 97H, Arterial Blood HCO3 22L, Arterial Blood Total CO2 23.3, Arterial Blood Oxygen Saturation 95, Arterial Blood Base Excess -5.5L, Alexy Test NA, Blood Gas Ventilator Setting YES, Blood Gas Inspired Oxygen 100% 08/24/20 11:34: Glucometer 111H Assessment/Plan Assessment and Plan 1. Acute on chronic hypoxic and hypercarbic respiratory failure secondary to underlying emphysema and interstitial lung disease with probably superimposed pneumonia--now sedated on ventilator with IV Vanc and Cefepime, pulmonary/critical care consult 2. Hypotension--on IV fluids and hydrocortisone started due to chronic prednisone use, Mid-line unsuccessful so surgery consulted for central line as may need pressors 3. History of paroxysmal atrial fibrillation--currently in NSR, Xarelto on hold due to hemoptysis 4. Chronic end-stage emphysema--oxygen dependent 5. History of pulmonary hypertensio--on sildenafil. 6. Hemoptysis probably due to pneumonia and xarelto--xarelto/blood thinners on hold I discussed grave prognosis with son due to his extensive underlying lung disease but family would like to at least give him through the weekend to see if there is any improvement Admission Diagnosis Admission Status: Inpatient Order (span 2 midnights) Reason for Inpatient Admission: Sedated on ventilator AUBREE GALVAN DO Aug 24, 2020 12:49
[2020-08-24] MEDS: HYDROCORTISONE 100 MG/2 ML (Solu-CORTEF) VIAL IV SCH ×2 (15:03→21:32)
--- NOTE | 2020-08-24 16:23 | Consultation - Surgery ---
History of Present Illness History of Present Illness Patient Consulted On(melina/time) 08/24/20 16:18 Time Seen by Provider: 15:21 History of Present Illness Surgery asked to consult regarding Venous Insufficiency and Hypotension. HPI per ED: Patient is a 80-year-old male who presents to the emergency department with a chief complaint of shortness of breath, hemoptysis, increasing oxygen requirements over the last several days. Patient has a history of interstitial lung disease and is followed in pulmonology clinic. The nurse practitioner in pulmonology clinic called me today to let me know that he has had increasing oxygen requirements and productive cough with some difficulty breathing. They checked an ABG in clinic and found him to be hypoxic on his normal 5 to 6 L per nasal cannula. He is still hypoxic on 10 L per simple facemask running at 88,89, 90%. He has a history of atrial fibrillation chronically anticoagulated. Denies chest pain. Denies fevers or chills. Has been having some body aches but he states this is not a new complaint. Denies diarrhea or urinary difficulties. No black or bloody stools. When I saw pt he was on pressors, intubated and sedated. Allergies and Home Medications Allergies Coded Allergies: shellfish derived (Unverified Allergy, Severe, ANAPHYLAXIS, 02/18/19) meperidine (Unverified Allergy, Intermediate, LOW BP, N/V, 02/18/19) Home Medications Albuterol Sulfate 1 Puff Puff, 2 PUFF INH Q4H PRN for SHORTNESS OF BREATH, (Reported) Diltiazem HCl 120 Mg Cap.er.24h, 120 MG PO HS Prescribed by: REJI GIBBS on 01/02/20930 Diltiazem HCl 180 Mg Cap.er.24h, 180 MG PO DAILY Prescribed by: REJI GIBBS on 01/02/20930 Dronedarone HCl 400 Mg Tablet, 400 MG PO BID Prescribed by: REJI GIBBS on 01/02/20930 Fluticasone/Umeclidin/Vilanter 1 Each Blst.w.dev, 1 PUFF INH DAILY, (Reported) Furosemide 20 Mg Tablet, 20 MG PO DAILY, (Reported) Gemfibrozil 600 Mg Tablet, 600 MG PO BID, (Reported) Ipratropium/Albuterol Sulfate 3 Ml Ampul.neb, 3 ML INH TID Prescribed by: REJI GIBBS on 01/02/20930 Melatonin 3 Mg Tablet, 6-9 MG PO HS PRN for SLEEP, (Reported) TAKES 2 OR 3 (3MG) TABLETS Montelukast Sodium 10 Mg Tablet, 10 MG PO DAILY, (Reported) Omeprazole 40 Mg Capsule.dr, 40 MG PO HS, (Reported) Pravastatin Sodium 20 Mg Tablet, 20 MG PO DAILY, (Reported) Prednisone 20 Mg Tab, 40 MG PO UD 2tab/day x2days then 1.5tab x 2days then 1tab x2 days then 0.5tab x 2 days then stop Prescribed by: REJI GIBBS on 01/02/20930 Rivaroxaban 20 Mg Tablet, 20 MG PO DAILY Prescribed by: REJI GIBBS on 01/02/20930 Sildenafil Citrate 20 Mg Tablet, 50 MG PO DAILY PRN for ED, (Reported) TAKES 2 & 1/2 (20MG) TABLETS Spironolactone 25 Mg Tablet, 25 MG PO DAILY Prescribed by: REJI GIBBS on 01/02/20930 Tamsulosin HCl 0.4 Mg Cap, 0.4 MG PO DAILY, (Reported) Testosterone Cypionate 200 Mg/1 Ml Vial, 200 MG INJ EVERY 2 WEEKS, (Reported) Tramadol HCl 50 Mg Tablet, 50-100 MG PO QID PRN for PAIN-MODERATE, (Reported) Patient Home Medication List Home Medication List Reviewed: Yes Past Oozoxqv-Dtfrss-Betvip Hx Patient Social History Smoking Status: Former Smoker Former Smoker, Quit: Feb 19, 2004 Type Used: Cigarettes 2nd Hand Smoke Exposure: Yes Recent Hopitalizations: No Alcohol Use?: No Have you traveled recently?: No Immunizations Up To Date Tetanus Booster (TDap): Unknown Date of Pneumonia Vaccine: Apr 17, 2016 Date of Influenza Vaccine: Nov 10, 2019 Seasonal Allergies Seasonal Allergies: No Surgeries History of Surgeries: Yes (EP PROCEDURE WITH ABLATION) Surgeries: Joint Replacement Respiratory History of Respiratory Disorde: Yes (O2 DEPENDENT) Respiratory Disorders: Sleep Apnea, Emphysema Cardiovascular History of Cardiac Disorders: Yes (MITRAL VALVE REPAIR) Cardiac Disorders: Atrial Fibrillation, Hypertension, Valvular Heart Disease Neurological History of Neurological Disord: No Neurological Disorders: Headaches /Migraines Reproductive System Hx Reproductive Disorders: No Sexually Transmitted Disease: No HIV/AIDS: No Genitourinary History of Genitourinary Disor: Yes Genitourinary Disorders: Kidney Stones Gastrointestinal History of Gastrointestinal Di: Yes Gastrointestinal Disorders: Gastroesophageal Reflux, Hiatal Hernia Musculoskeletal History of Musculoskeletal Dis: Yes (LEFT KNEE DJD, SPINAL STENOSIS, RESTLESS LEG SYNDROME) Musculoskeletal Disorders: Arthritis, Fibromyalgia, Chronic Back Pain Endocrine History of Endocrine Disorders: Yes (DIET CONTROLLED DIABETES) Endocrine Disorders: Diabetes, Non-Insulin dep HEENT History of HEENT Disorders: Yes (GLASSES, DENTURES) HEENT Disorders: Cataract Loss of Vision: Denies Hearing Impairment: Hard of Hearing, Bilateral Hearing Aide Cancer History of Cancer: Yes Cancer: Skin Psychosocial History of Psychiatric Problem: No Integumentary History of Skin or Integumenta: No Blood Transfusions History of Blood Disorders: No Adverse Reaction to a Blood Tr: No (N/A) Family Medical History Significant Family History: Cancer Review of Systems-General ROS-Unable to Obtain: pt intubated and sedated Physical Exam-General Problems Physical Exam Vital Signs Vital Signs - First Documented 08/23/20 08/23/20 08/23/20 14:35 14:39 18:31 Temp 36.4 Pulse 70 Resp 18 B/P (MAP) 122/77 (92) Pulse Ox 92 O2 Delivery OxyMask O2 Flow Rate 15.00 FiO2 70 Capillary Refill : Less Than 3 Seconds General Appearance: WD/WN, mild distress Eyes: Bilateral Eye PERRL, Bilateral Eye EOMI HEENT: No scleral icterus (R), No scleral icterus (L) Respiratory: respiratory distress, decreased breath sounds, crackles, rales, rhonchi Cardiovascular: regular rate, rhythm, no murmur Gastrointestinal: normal bowel sounds, soft, no organomegaly Extremities: no pedal edema, normal capillary refill Neurologic/Psychiatric: other (unable to obtain, pt intubated and sedated) Skin: normal color, warm/dry Lymphatic: no adenopathy (neck, axilla or groin) Data Review Labs Laboratory Tests 08/24/20 03:29: White Blood Count 18.3H, Red Blood Count 3.80L, Hemoglobin 11.7L, Hematocrit 36L , Mean Corpuscular Volume 94, Mean Corpuscular Hemoglobin 31, Mean Corpuscular Hemoglobin Concent 33, Red Cell Distribution Width 15.5H, Platelet Count 374, Mean Platelet Volume 9.4, Immature Granulocyte % (Auto) 2, Neutrophils (%) (Auto) 90H, Lymphocytes (%) (Auto) 3L, Monocytes (%) (Auto) 4, Eosinophils (%) (Auto) 0, Basophils (%) (Auto) 0, Neutrophils # (Auto) 16.5H, Lymphocytes # (Auto) 0.6L, Monocytes # (Auto) 0.8, Eosinophils # (Auto) 0.0, Basophils # (Auto) 0.0, Immature Granulocyte # (Auto) 0.4H, Sodium Level 133L, Potassium Level 4.7, Chloride Level 105, Carbon Dioxide Level 20L, Anion Gap 8, Blood Urea Nitrogen 18, Creatinine 0.71, Estimat Glomerular Filtration Rate > 60, BUN/Creatinine Ratio 25, Glucose Level 94, Calcium Level 9.0, Magnesium Level 2.2, Triglycerides Level 65 08/24/20 05:57: Blood Gas Puncture Site L RAD ARTLINE, Blood Gas Patient Temperature 36.5, Arterial Blood pH 7.09*L, Arterial Blood Partial Pressure CO2 88*H, Arterial Blood Partial Pressure O2 69L, Arterial Blood HCO3 26, Arterial Blood Total CO2 28.5, Arterial Blood Oxygen Saturation 81L, Arterial Blood Base Excess -3.3L, Alexy Test ART LINE, Blood Gas Ventilator Setting YES, Blood Gas Inspired Oxygen 100% 08/24/20 10:20: Blood Gas Puncture Site NA, Blood Gas Patient Temperature 36.2, Arterial Blood pH 7.20*L, Arterial Blood Partial Pressure CO2 57H, Arterial Blood Partial Pressure O2 97H, Arterial Blood HCO3 22L, Arterial Blood Total CO2 23.3, Arterial Blood Oxygen Saturation 95, Arterial Blood Base Excess -5.5L, Alexy Test NA, Blood Gas Ventilator Setting YES, Blood Gas Inspired Oxygen 100% 08/24/20 11:34: Glucometer 111H 08/24/20 15:11: Arterial Blood pH 7.21*L Assessment/Plan Assessment/Plan Assessment/Plan Venous insufficiency Hypotension Acute Resp Failure Pt needed central line for blood pressure support, must use central line and they were unable to get PICC or midline. Central line placed without difficulty. PRIMO GONZALEZ DO Aug 24, 2020 16:23
--- NOTE | 2020-08-24 16:24 | Progress Note-Post Operative ---
Post-Operative Progess Note Surgeon (s)/[employer] Principal (s) Surgeon PRIMO GONZALEZ DO [employer] Principal: none Pre-Operative Diagnosis Venous insufficiency, Hypotension, Acute Resp failure Post-Operative Diagnosis same Procedure & Operative Findings Date of Procedure 08/24/20 Procedure Performed/Findings The patient was in their bed in the ICU, was prepped and draped in the sterile fashion. A surgical pause was performed. Ultrasound was used to locate the internal jugular vein. Once located anesthetic was infiltrated above it. Using an 18 gauge finder needle and watching with the US; the right internal jugular vein was accessed. Dark nonpulsatile blood was withdrawn. The wire was inserted. Fluoroscopy assured proper placement. The needle was removed. A [#11] blade scalpel was used to make a stab incision along the guidewire. Dilator sheath was then advanced over the wire using Seldinger technique and the dilator was removed. The Groshong catheter was inserted over the guide wire using the Seldinger technique. The Groshong wire was removed. The catheter was then accessed in all three ports without difficulty. Good flash of blood was seen and it was then flushed with saline. The catheter was sutured in place with 3-0 silk on a ángela needle. The areas were then washed and dried. Sterile dressing was placed over incision. The patient tolerated the procedure well without complication. Anesthesia Type sedated on propofol Estimated Blood Loss Estimated blood loss (mL): scant Specimens/Packing Specimens Removed none PRIMO GONZALEZ DO Aug 24, 2020 16:24
[2020-08-24 17:39] LABS: BASOPHILS # (AUTO) 0.1 10^3/uL (0.0-0.1); BASOPHILS % (AUTO) 0 % (0-10); EOSINOPHILS % (AUTO) 0 % (0-10); HEMATOCRIT 38 % (40-54); HEMOGLOBIN 11.5 g/dL (13.3-17.7); LYMPHOCYTES # (AUTO) 0.5 10^3/uL (1.0-4.0); LYMPHOCYTES % (AUTO) 2 % (12-44); MEAN CORPUSCULAR HEMOGLOBIN 30 pg (25-34); MEAN CORPUSCULAR HGB CONC 30 g/dL (32-36); MEAN CORPUSCULAR VOLUME 100 fL (80-99); MEAN PLATELET VOLUME 9.1 fL (9.0-12.2); MONOCYTES # (AUTO) 0.7 10^3/uL (0.0-1.0); MONOCYTES % (AUTO) 3 % (0-12); NEUTROPHILS # (AUTO) 19.5 10^3/uL (1.8-7.8); NEUTROPHILS % (AUTO) 89 % (42-75); PLATELET COUNT 453 10^3/uL (130-400); WHITE BLOOD COUNT 21.8 10^3/uL (4.3-11.0)
[2020-08-24 17:47] LABS: CHLORIDE 108 MMOL/L (98-107); POTASSIUM 5.3 MMOL/L (3.6-5.0); SODIUM 137 MMOL/L (135-145)
[2020-08-24 17:48] LABS: CALCIUM 8.7 MG/DL (8.5-10.1)
[2020-08-24 17:49] LABS: GLUCOSE 145 MG/DL (70-105)
[2020-08-24 17:50] LABS: CARBON DIOXIDE 20 MMOL/L (21-32)
[2020-08-24 17:53] LABS: GFR ESTIMATED > 60
[2020-08-24 17:54] LABS: BUN/CREATININE RATIO 26
[2020-08-24 18:00] LABS: FIBRIN DEGRADATION PRODUCTS 11.91 UG/ML (0.00-0.49); INR 1.6 (0.8-1.4); PROTHROMBIN TIME PATIENT 19.7 SEC (12.2-14.7)
[2020-08-25 02:04] VITALS: BP 118/53
[2020-08-25] MEDS: RT-ALBUTEROL/IPRATROPIUM 3 ML (DUONEB) VIAL INH SCH ×6 (02:04→21:30)
[2020-08-25] MEDS: PROPOFOL DRIP (ICU) 100 ML IV SCH ×6 (02:32→21:51)
[2020-08-25] MEDS: NS IV 1000 ML 1,000 ML IV SCH ×4 (04:14→23:14)
[2020-08-25] MEDS ORDERED: TROUGH ORDER-PHARMACY XX NR (06:00)
[2020-08-25] MEDS: CEFEPIME INJECTION 1,000 MG in WATER (STERILE) FOR INJECTION 10 ML IV SCH ×3 (06:28→17:36)
[2020-08-25] MEDS: HYDROCORTISONE 100 MG/2 ML (Solu-CORTEF) VIAL IV SCH ×3 (06:28→21:46)
[2020-08-25 06:31] LABS: ABG BASE EXCESS -3.2 MMOL/L (-2.5-2.5); ABG OXYGEN SATURATION 97 % (94-100); ABG PCO2 51 MMHG (35-45); ABG PO2 129 MMHG (79-93); ABG TCO2 24.5 MMOL/L (21.0-31.0)
[2020-08-25 06:33] LABS: ABG PH 7.27 (7.37-7.43); ALLENS TEST ART LINE; BASOPHILS % (AUTO) 0 % (0-10); EOSINOPHILS % (AUTO) 0 % (0-10); HEMATOCRIT 34 % (40-54); HEMOGLOBIN 10.4 g/dL (13.3-17.7); LYMPHOCYTES # (AUTO) 0.7 10^3/uL (1.0-4.0); LYMPHOCYTES % (AUTO) 6 % (12-44); MEAN CORPUSCULAR HEMOGLOBIN 30 pg (25-34); MEAN CORPUSCULAR HGB CONC 31 g/dL (32-36); MEAN CORPUSCULAR VOLUME 99 fL (80-99); MEAN PLATELET VOLUME 9.1 fL (9.0-12.2); MONOCYTES # (AUTO) 0.7 10^3/uL (0.0-1.0); MONOCYTES % (AUTO) 5 % (0-12); NEUTROPHILS # (AUTO) 10.9 10^3/uL (1.8-7.8); NEUTROPHILS % (AUTO) 87 % (42-75); PLATELET COUNT 321 10^3/uL (130-400); WHITE BLOOD COUNT 12.5 10^3/uL (4.3-11.0)
[2020-08-25 06:34] LABS: VENTILATOR YES
[2020-08-25 06:42] VITALS: BP 189/119
[2020-08-25] MEDS: KCL 20 MEQ TAB (K-DUR) PO SCH (06:42)
[2020-08-25 06:53] LABS: ALBUMIN 2.5 GM/DL (3.2-4.5); CHLORIDE 112 MMOL/L (98-107); POTASSIUM 4.7 MMOL/L (3.6-5.0); SODIUM 143 MMOL/L (135-145)
[2020-08-25 06:54] LABS: CALCIUM 8.6 MG/DL (8.5-10.1)
[2020-08-25 06:55] LABS: GLUCOSE 138 MG/DL (70-105); TOTAL PROTEIN 5.6 GM/DL (6.4-8.2)
[2020-08-25 06:56] LABS: CARBON DIOXIDE 21 MMOL/L (21-32)
[2020-08-25 06:57] LABS: BILIRUBIN,TOTAL 0.5 MG/DL (0.1-1.0)
[2020-08-25] MEDS: MAGNESIUM 1 GM/100 ML IVPB 100 ML IV SCH (06:58)
[2020-08-25] MEDS: POTASSIUM CL 10MEQ/50ML IVPB 50 ML IV SCH (06:58)
[2020-08-25 06:59] LABS: ALKALINE PHOSPHATASE 96 U/L (40-136); CREATININE SERUM 0.81 MG/DL (0.60-1.30); GFR ESTIMATED > 60
[2020-08-25] MEDS: inSUlin ASPART (NovoLOG) 1 UNIT/0.01 ML (CHARGE PER UNIT) SC SCH ×4 (06:59→23:21)
[2020-08-25 07:00] LABS: BUN/CREATININE RATIO 27
[2020-08-25 07:01] LABS: MAGNESIUM 2.5 MG/DL (1.6-2.4)
[2020-08-25 07:02] LABS: ALANINE AMINOTRANSFERASE 41 U/L (0-55)
--- NOTE | 2020-08-25 07:25 | Progress Note ---
Subjective HPI/CC On Admission Date Seen by Provider: Aug 25, 2020 Time Seen by Provider: 07:20 Subjective/Events-last exam Overnight patient has had no changes. Titrating down on norepinephrine. Focused Exam Lactate Level 08/23/20 14:43: Lactic Acid Level 1.71 Objective Exam Vital Signs Vital Signs Date Time Temp Pulse Resp B/P (MAP) Pulse Ox O2 Delivery O2 Flow Rate FiO2 08/25/20 06:42 62 30 97 50 08/25/20 06:32 Mechanical Ventilator 50.00 08/25/20 06:04 104/50 08/25/20 03:28 36.1 Capillary Refill : Less Than 3 Seconds General Appearance: No Apparent Distress, Chronically ill, Other (on vent) HEENT: Normal ENT Inspection, Other (serosanguinous fluid in tube) Respiratory: Chest Non Tender, Decreased Breath Sounds, Wheezing Cardiovascular: Regular Rate, Rhythm, No Edema, No Murmur Gastrointestinal: Normal Bowel Sounds Extremity: Normal Capillary Refill, Normal Inspection, Non Tender Neurologic/Psychiatric: Other (comfortable) Skin: Normal Color, Cool Results/Procedures Lab Laboratory Tests 08/24/20 17:24 08/25/20 06:22 Patient resulted labs reviewed. Assessment/Plan Assessment and Plan Assess & Plan/Chief Complaint 1. Acute on chronic hypoxic and hypercarbic respiratory failure secondary to underlying emphysema and interstitial lung disease with probably superimposed pneumonia--now sedated on ventilator with IV Vanc and Cefepime, pulmonary/critical care managing; white count decreased today. 2. Hypotension--on IV fluids and hydrocortisone started due to chronic prednisone use, central line with norepinephrine 3. History of paroxysmal atrial fibrillation--currently in NSR, Xarelto on hold due to hemoptysis 4. Chronic end-stage emphysema--oxygen dependent 5. History of pulmonary hypertensio--on sildenafil. 6. Hemoptysis probably due to pneumonia and xarelto--xarelto/blood thinners on hold The family is aware of grave condition. We are giving him through the weekend to see if there is any improvement ANAHI RAMOS MD Aug 25, 2020 07:25
[2020-08-25] MEDS: VANCOMYCIN 1250 MG/NS 250 ML IVPB IV SCH ×4 (07:51→18:31)
[2020-08-25] MEDS: PANTOPRAZOLE 40 MG (PROTONIX) VIAL IV SCH (07:52)
--- NOTE | 2020-08-25 08:22 | Diagnostic Imaging Report ---
INDICATION: Follow-up respiratory distress, ventilator dependent FINDINGS: Portable upright view of the chest is compared to an exam from yesterday. An endotracheal tube, central venous catheter and enteric tube are present. Postoperative changes present to the heart. Bilateral pulmonary infiltrates have not appreciably changed. No significant effusions are present. Cardiomegaly is stable. IMPRESSION: There has been no significant change. Dictated by: Dictated on workstation # [id number]
[2020-08-25] MEDS: NOREPINEPHRINE 8 MG/250 ML 250 ML IV SCH ×2 (08:32→23:20)
--- NOTE | 2020-08-25 08:54 | Tele-ICU Progress Note ---
Subjective Date Seen by a Provider: Aug 25, 2020 Time Seen by a Provider: 08:54 Subjective/Events-last exam He remained on mechanical ventilation and no Levophed has been weaned off. He has a very little blood in the ET tube's currently. He we are able to wean his FiO2 down to 40%. However he is requiring respiratory rate up to 25 and still has a mild respiratory and metabolic acidosis. Chest x-ray showed bilateral extensive infiltrates and no significant improvement seen. He is on broad- spectrum antibiotics. Heparin will be held until tomorrow at least. Review of Systems per attending physician Sepsis Event Evaluation Height, Weight, BMI Height: 5'11.00" Weight: 251lbs. 0.8oz. 112.706016eb; 30.77 BMI Method:Stated Focused Exam Lactate Level 08/23/20 14:43: Lactic Acid Level 1.71 Exam Exam Patient acknowledged, consented, and participated in this virtual visit which w as conducted using real time audio/video Vital Signs Date Time Temp Pulse Resp B/P (MAP) Pulse Ox O2 Delivery O2 Flow Rate FiO2 08/25/20 08:30 36.0 08/25/20 08:29 Mechanical Ventilator 40.00 08/25/20 08:00 61 10 97 Mechanical Ventilator 50.00 08/25/20 07:00 92 22 97 Mechanical Ventilator 50.00 08/25/20 07:00 63 08/25/20 06:42 62 30 97 50 08/25/20 06:32 Mechanical Ventilator 50.00 08/25/20 06:04 104/50 08/25/20 06:00 64 12 98 Mechanical Ventilator 55.00 08/25/20 05:00 64 21 98 Mechanical Ventilator 55.00 08/25/20 04:00 28 95 Mechanical Ventilator 55.00 08/25/20 04:00 94 Mechanical Ventilator 55 08/25/20 03:28 36.1 08/25/20 03:00 26 94 Mechanical Ventilator 55.00 08/25/20 02:32 94 114/49 08/25/20 02:04 58 31 94 55 08/25/20 02:00 58 26 94 Mechanical Ventilator 55.00 08/25/20 01:46 Mechanical Ventilator 55.00 08/25/20 01:43 58 130/57 08/25/20 01:00 60 20 96 Mechanical Ventilator 60.00 08/25/20 01:00 60 08/25/20 00:00 62 22 95 Mechanical Ventilator 60.00 08/25/20 00:00 94 Mechanical Ventilator 60 08/24/20 23:50 Mechanical Ventilator 60.00 08/24/20 23:45 61 131/57 08/24/20 23:42 61 124/54 08/24/20 23:18 36.2 08/24/20 23:00 64 20 96 Mechanical Ventilator 65.00 08/24/20 22:41 118/53 08/24/20 22:00 63 24 96 Mechanical Ventilator 65.00 08/24/20 21:36 61 31 95 65 08/24/20 21:00 61 17 96 Mechanical Ventilator 65.00 08/24/20 20:00 64 20 95 Mechanical Ventilator 65.00 08/24/20 20:00 94 Mechanical Ventilator 65 08/24/20 19:34 36.2 08/24/20 19:31 Mechanical Ventilator 65.00 08/24/20 19:28 64 126/55 08/24/20 19:00 66 18 96 Mechanical Ventilator 70.00 08/24/20 19:00 Mechanical Ventilator 70.00 08/24/20 19:00 66 08/24/20 18:16 66 32 97 70 08/24/20 18:00 67 20 98 Mechanical Ventilator 80.00 08/24/20 17:54 131/59 08/24/20 17:53 126/57 08/24/20 17:00 70 21 97 Mechanical Ventilator 80.00 08/24/20 16:19 95 Mechanical Ventilator 80 08/24/20 16:00 69 15 97 Mechanical Ventilator 80.00 08/24/20 15:53 36.6 08/24/20 15:00 69 98 Mechanical Ventilator 80.00 08/24/20 14:52 69 31 95 80 08/24/20 14:31 68 104/56 08/24/20 14:11 96 Mechanical Ventilator 75.00 08/24/20 14:00 68 18 97 Mechanical Ventilator 80.00 08/24/20 13:30 97 Mechanical Ventilator 80.00 08/24/20 13:00 68 08/24/20 13:00 68 18 98 Mechanical Ventilator 90.00 08/24/20 12:00 67 15 96 Mechanical Ventilator 90.00 08/24/20 11:50 97 Mechanical Ventilator 80 08/24/20 11:49 36.2 08/24/20 11:00 67 16 96 Mechanical Ventilator 90.00 08/24/20 10:57 67 96/57 08/24/20 10:53 67 93/55 08/24/20 10:47 Mechanical Ventilator 90.00 08/24/20 10:39 65 32 95 90 08/24/20 10:00 71 29 92 Mechanical Ventilator 100.00 08/24/20 09:43 67/43 08/24/20 09:00 70 29 92 Mechanical Ventilator 100.00 I & O 08/25/20 07:00 Intake Total 3582.5 ml Output Total 2975 ml Balance 607.5 ml Height & Weight Height: 5'11.00" Weight: 251lbs. 0.8oz. 112.697980gz; 30.77 BMI Method:Stated General Appearance: Chronically ill, Other (on vent) HEENT: Normal ENT Inspection, Other (serosanguinous fluid in tube) Neck: Supple Respiratory: Chest Non Tender, Decreased Breath Sounds, Wheezing Cardiovascular: Regular Rate, Rhythm, No Edema, No Murmur Capillary Refill: Less Than 3 Seconds Gastrointestinal: normal bowel sounds, soft, no organomegaly Extremity: Normal Capillary Refill, Normal Inspection, Non Tender Neurologic/Psychiatric: Other (comfortable) Skin: Normal Color, Cool Results Lab Laboratory Tests 08/23/20 14:43 08/24/20 03:29 08/24/20 17:24 08/25/20 06:22 Meds reviewed Radiology cxr reviewed Assessment/Plan Assessment/Plan 1. Acute on chronic hypoxic and hypercarbic respiratory failure secondary to underlying emphysema, ILD and possibly superimposed pneumonia. 2. Hypotension could be due to volume deficiency as well as adrenal insufficiency in this patient who is acutely ill and he is on a chronically on prednisone. today improved 3. History of paroxysmal atrial fibrillation was on Xarelto currently on hold 4. Chronic end-stage emphysema history. 5. History of pulmonary hypertension on sildenafil. 6. Hemoptysis probably due to pneumonia in a patient on chr. anticoagulation. very minimal now Recommendations 1. Continue mechanical ventilation with a tidal volume of 500, FiO2 40%, respiratory rate 25 and a PEEP of 14. We will repeat a blood gas in 2 hours and reassess the patient. 2. CVC has been inserted. 3. Continue IV hydrocortisone for stress dose. 4. S/Q heparin on hold due to hemoptysis 5. His overall prognosis is poor. 6. He is a DNR status but okay with intubation apparently. 7. Broad-spectrum antibiotics with cefepime and vancomycin. 8. Ulcer prophylaxis with Protonix. 9. I have discussed with the bedside RN and made a video visit. 10. We will continue to monitor his CBC CMP and blood gases periodically. Critical Care: Critically Ill Patient Time spent with patient (mins): 35 Diagnosis/Problems Diagnosis/Problems (1) Steroid-dependent COPD (2) Hemoptysis, unspecified (3) Bilateral pneumonia (4) Acute and chronic respiratory failure (5) Paroxysmal atrial fibrillation RIAZ HERNANDEZ MD Aug 25, 2020 08:54
[2020-08-25] MEDS ORDERED: DIGO125T3 PO (10:17)
[2020-08-25] MEDS ORDERED: FLUT1BLS3 IH (10:17)
[2020-08-25] MEDS ORDERED: DILT180C54 PO (10:17)
[2020-08-25 11:05] VITALS: BP 125/55
[2020-08-25] MEDS: RT--FLUTICASONE/SALMETEROL 232-14 (AIRDUO RespiCLICK) IH SCH ×2 (11:05→21:29)
[2020-08-25] MEDS: DexMEDEtomidine 250 ML DRIP 250 ML IV SCH (11:50)
[2020-08-25 14:40] VITALS: BP 114/50
[2020-08-25 18:48] VITALS: BP 124/52
[2020-08-25 21:31] VITALS: BP 129/52
[2020-08-26] MEDS: CEFEPIME INJECTION 1,000 MG in WATER (STERILE) FOR INJECTION 10 ML IV SCH ×5 (00:18→22:44)
[2020-08-26] MEDS: PROPOFOL DRIP (ICU) 100 ML IV SCH ×7 (01:43→21:36)
[2020-08-26] MEDS: RT-ALBUTEROL/IPRATROPIUM 3 ML (DUONEB) VIAL INH SCH ×6 (01:59→22:33)
[2020-08-26 02:00] VITALS: BP 124/51
[2020-08-26 04:40] LABS: ABG BASE EXCESS -1.6 MMOL/L (-2.5-2.5); ABG OXYGEN SATURATION 94 % (94-100); ABG PCO2 45 MMHG (35-45); ABG PO2 81 MMHG (79-93); ABG TCO2 24.7 MMOL/L (21.0-31.0)
[2020-08-26 04:41] LABS: BASOPHILS % (AUTO) 0 % (0-10); EOSINOPHILS % (AUTO) 0 % (0-10); HEMATOCRIT 30 % (40-54); HEMOGLOBIN 9.4 g/dL (13.3-17.7); LYMPHOCYTES # (AUTO) 0.4 10^3/uL (1.0-4.0); LYMPHOCYTES % (AUTO) 4 % (12-44); MEAN CORPUSCULAR HEMOGLOBIN 31 pg (25-34); MEAN CORPUSCULAR HGB CONC 31 g/dL (32-36); MEAN CORPUSCULAR VOLUME 98 fL (80-99); MEAN PLATELET VOLUME 9.2 fL (9.0-12.2); MONOCYTES # (AUTO) 0.5 10^3/uL (0.0-1.0); MONOCYTES % (AUTO) 5 % (0-12); NEUTROPHILS % (AUTO) 89 % (42-75); PLATELET COUNT 281 10^3/uL (130-400); WHITE BLOOD COUNT 10.1 10^3/uL (4.3-11.0)
[2020-08-26 04:53] LABS: ABG PH 7.34 (7.37-7.43); ALBUMIN 2.2 GM/DL (3.2-4.5); ALLENS TEST ART LINE; CHLORIDE 116 MMOL/L (98-107); INSPIRED O2 40%; PATIENT TEMP 36; POTASSIUM 3.6 MMOL/L (3.6-5.0); SODIUM 145 MMOL/L (135-145); VENTILATOR YES
[2020-08-26 04:55] LABS: CALCIUM 7.7 MG/DL (8.5-10.1); TRIGLYCERIDES 147 MG/DL (<150)
[2020-08-26 04:56] LABS: GLUCOSE 100 MG/DL (70-105); TOTAL PROTEIN 4.9 GM/DL (6.4-8.2)
[2020-08-26 04:57] LABS: CARBON DIOXIDE 21 MMOL/L (21-32)
[2020-08-26 04:58] LABS: BILIRUBIN,TOTAL 0.5 MG/DL (0.1-1.0)
[2020-08-26 04:59] LABS: ALKALINE PHOSPHATASE 73 U/L (40-136); CREATININE SERUM 0.62 MG/DL (0.60-1.30); GFR ESTIMATED > 60
[2020-08-26 05:00] LABS: BUN/CREATININE RATIO 26
[2020-08-26 05:02] LABS: ALANINE AMINOTRANSFERASE 32 U/L (0-55); MAGNESIUM 2.4 MG/DL (1.6-2.4)
[2020-08-26] MEDS: KCL 20 MEQ TAB (K-DUR) PO SCH (05:52)
[2020-08-26] MEDS: inSUlin ASPART (NovoLOG) 1 UNIT/0.01 ML (CHARGE PER UNIT) SC SCH ×4 (05:52→22:45)
[2020-08-26] MEDS: MAGNESIUM 1 GM/100 ML IVPB 100 ML IV SCH (05:52)
[2020-08-26] MEDS: POTASSIUM CL 10MEQ/50ML IVPB 50 ML IV SCH ×2 (05:52→06:12)
[2020-08-26] MEDS: HYDROCORTISONE 100 MG/2 ML (Solu-CORTEF) VIAL IV SCH ×3 (05:59→20:29)
[2020-08-26] MEDS: NS IV 1000 ML 1,000 ML IV SCH ×3 (06:00→19:41)
[2020-08-26] MEDS: VANCOMYCIN 1250 MG/NS 250 ML IVPB IV SCH ×4 (06:06→18:27)
[2020-08-26] MEDS: RT--FLUTICASONE/SALMETEROL 232-14 (AIRDUO RespiCLICK) IH SCH ×2 (06:53→19:20)
[2020-08-26 06:54] VITALS: BP 156/60
[2020-08-26] MEDS: PANTOPRAZOLE 40 MG (PROTONIX) VIAL IV SCH (07:58)
--- NOTE | 2020-08-26 09:34 | Tele-ICU Progress Note ---
Subjective Date Seen by a Provider: Aug 26, 2020 Time Seen by a Provider: 09:12 Subjective/Events-last exam Patient is remained intubated on mechanical ventilation. Video visit made and discussed with the SUPERVISOR [employer]. His blood pressure is slightly increased today. He is off the Levophed. His ET tube secretions are copious but they are aide colored no active bleeding present. Slight decrease in the hemoglobin could be dilutional. He is on 40% FiO2 with a PEEP of 8. Chest x-ray showed bilateral extensive infiltrates without any significant improvement. Based on the given date I do not think he is ready to be tried on SBT. Urine output is adequate. Review of Systems per attending physician Sepsis Event Evaluation Height, Weight, BMI Height: 5'11.00" Weight: 251lbs. 0.8oz. 112.411054kd; 30.77 BMI Method:Stated Focused Exam Lactate Level 08/23/20 14:43: Lactic Acid Level 1.71 Exam Exam Patient acknowledged, consented, and participated in this virtual visit which was conducted using real time audio/video Vital Signs Date Time Temp Pulse Resp B/P (MAP) Pulse Ox O2 Delivery O2 Flow Rate FiO2 08/26/20 08:30 Mechanical Ventilator 40.00 08/26/20 08:08 Mechanical Ventilator 50.00 08/26/20 08:00 83 21 92 Mechanical Ventilator 40.00 08/26/20 08:00 Mechanical Ventilator 40 08/26/20 07:58 78 156/60 08/26/20 07:45 36.3 08/26/20 07:00 58 19 93 Mechanical Ventilator 40.00 08/26/20 07:00 75 08/26/20 06:54 78 29 92 70 08/26/20 06:00 68 20 93 Mechanical Ventilator 40.00 08/26/20 05:00 56 30 96 Mechanical Ventilator 40.00 08/26/20 04:41 140/56 08/26/20 04:00 Mechanical Ventilator 40 08/26/20 03:00 55 26 92 Mechanical Ventilator 40.00 08/26/20 02:00 50 13 94 Mechanical Ventilator 40.00 08/26/20 02:00 55 33 92 40 08/26/20 01:43 156/64 08/26/20 01:00 49 10 93 Mechanical Ventilator 40.00 08/26/20 01:00 48 08/26/20 00:18 35.9 08/26/20 00:00 49 9 94 Mechanical Ventilator 40.00 08/25/20 23:22 Mechanical Ventilator 40 08/25/20 23:00 56 17 93 Mechanical Ventilator 40.00 08/25/20 22:00 61 14 91 Mechanical Ventilator 40.00 08/25/20 21:51 139/55 08/25/20 21:31 50 31 95 40 08/25/20 21:00 58 16 95 Mechanical Ventilator 40.00 08/25/20 20:00 35.8 08/25/20 20:00 63 17 90 Mechanical Ventilator 40.00 08/25/20 19:52 Mechanical Ventilator 40 08/25/20 19:37 52 94 Mechanical Ventilator 40.00 08/25/20 19:00 57 08/25/20 19:00 53 11 95 Mechanical Ventilator 40.00 08/25/20 18:48 54 33 94 40 08/25/20 18:00 48 10 94 Mechanical Ventilator 40.00 08/25/20 17:28 51 114/50 08/25/20 17:00 51 18 95 Mechanical Ventilator 40.00 08/25/20 16:00 59 16 95 Mechanical Ventilator 40.00 08/25/20 16:00 35.8 08/25/20 15:05 95 Mechanical Ventilator 40 08/25/20 15:00 52 11 95 Mechanical Ventilator 40.00 08/25/20 14:40 57 34 94 40 08/25/20 14:00 51 16 94 Mechanical Ventilator 40.00 08/25/20 13:00 52 08/25/20 13:00 52 10 94 Mechanical Ventilator 40.00 08/25/20 12:32 56 125/55 08/25/20 12:00 56 23 95 Mechanical Ventilator 40.00 08/25/20 11:50 57 125/55 08/25/20 11:35 35.9 08/25/20 11:10 94 Mechanical Ventilator 40 08/25/20 11:05 57 32 95 40 08/25/20 11:00 54 9 95 Mechanical Ventilator 40.00 08/25/20 10:00 56 33 94 Mechanical Ventilator 40.00 I & O 08/26/20 07:00 Intake Total 2632.5 ml Output Total 1855 ml Balance 777.5 ml Height & Weight Height: 5'11.00" Weight: 251lbs. 0.8oz. 112.018642pq; 30.77 BMI Method:Stated General Appearance: Chronically ill, Other (on vent) HEENT: Normal ENT Inspection, Other (serosanguinous fluid in tube) Neck: Supple Respiratory: Chest Non Tender, Decreased Breath Sounds, Wheezing Cardiovascular: Regular Rate, Rhythm, No Edema, No Murmur Capillary Refill: Less Than 3 Seconds Gastrointestinal: normal bowel sounds, soft, no organomegaly Extremity: Normal Capillary Refill, Normal Inspection, Non Tender Neurologic/Psychiatric: Other (comfortable) Skin: Normal Color, Cool Results Lab Laboratory Tests 08/24/20 17:24 08/25/20 06:22 08/26/20 04:30 Meds reviewed Radiology cxr reviewed Assessment/Plan Assessment/Plan 1. Acute on chronic hypoxic and hypercarbic respiratory failure secondary to underlying emphysema, ILD and possibly superimposed pneumonia. 2. Hypotension improved currently hypertensive 3. History of paroxysmal atrial fibrillation was on Xarelto currently on hold 4. Chronic end-stage emphysema history. 5. History of pulmonary hypertension on sildenafil. 6. Hemoptysis probably due to pneumonia in a patient on chr. anticoagulation. very minimal now Recommendations 1. Continue mechanical ventilation with a tidal volume of 500, FiO2 40%, respiratory rate 25 and a PEEP of 8. 2. CVC has been inserted. 3. Continue IV hydrocortisone for stress dose. 4. S/Q heparin will be restarted 5. His overall prognosis is poor. 6. He is a DNR status but okay with intubation apparently. 7. Broad-spectrum antibiotics with cefepime and vancomycin. 8. Ulcer prophylaxis with Protonix. 9. I have discussed with the bedside RN and made a video visit. 10. We will continue to monitor his CBC CMP and blood gases periodically. 11. will give dose of lasix Critical Care: Critically Ill Patient Time spent with patient (mins): 35 Diagnosis/Problems Diagnosis/Problems (1) Steroid-dependent COPD (2) Hemoptysis, unspecified (3) Bilateral pneumonia (4) Acute and chronic respiratory failure (5) Paroxysmal atrial fibrillation RIAZ HERNANDEZ MD Aug 26, 2020 09:34
--- NOTE | 2020-08-26 10:21 | Diagnostic Imaging Report ---
EXAMINATION: Chest 1 view HISTORY: Follow-up. Intubated. Pneumonia. COMPARISON: 08/25/2020. FINDINGS: Stable support devices. No significant change in patchy and confluent opacities involving all 5 lobes. No large pleural effusion or pneumothorax. 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 IMPRESSION: 1. Stable chest with stable multifocal pneumonia. 2. Stable support devices. Dictated by: Dictated on workstation # [id number]
[2020-08-26] MEDS ORDERED: FUROSEMIDE 40 MG/4 ML INJ (LASIX) IVP NR (10:30)
[2020-08-26 12:02] VITALS: BP 147/60
[2020-08-26] MEDS: NOREPINEPHRINE 8 MG/250 ML 250 ML IV SCH ×2 (12:06→20:24)
--- NOTE | 2020-08-26 13:08 | Progress Note ---
Subjective HPI/CC On Admission Date Seen by Provider: Aug 26, 2020 Time Seen by Provider: 13:05 Subjective/Events-last exam No events overnight. Started on tube feeds. Off levaphed for 24 hours. Slightly hypertensive. at bedside and updated on situation. Focused Exam Lactate Level 08/23/20 14:43: Lactic Acid Level 1.71 Objective Exam Vital Signs Vital Signs Date Time Temp Pulse Resp B/P (MAP) Pulse Ox O2 Delivery O2 Flow Rate FiO2 08/26/20 12:49 89 08/26/20 12:02 26 93 40 08/26/20 12:00 Mechanical Ventilator 08/26/20 12:00 40.00 08/26/20 12:00 36.2 Capillary Refill : Less Than 3 Seconds General Appearance: No Apparent Distress, Other (comfortably ventilated) Neck: Full Range of Motion Respiratory: Chest Non Tender, Lungs Clear, Normal Breath Sounds, No Accessory Muscle Use, No Respiratory Distress Cardiovascular: Regular Rate, Rhythm, No Edema Extremity: No Pedal Edema Skin: Normal Color, Warm/Dry Results/Procedures Lab Laboratory Tests 08/26/20 04:30 Patient resulted labs reviewed. Assessment/Plan Assessment and Plan Assess & Plan/Chief Complaint 1. Acute on chronic hypoxic and hypercarbic respiratory failure secondary to underlying emphysema and interstitial lung disease with probably superimposed pneumonia--now sedated on ventilator with IV Vanc and Cefepime, pulmonary/critical care managing; white count decreased today. 2. Hypotension--on IV fluids and hydrocortisone. Titrated off levaphed for 24 hours now. 3. History of paroxysmal atrial fibrillation--currently in NSR, Xarelto on hold due to hemoptysis 4. Chronic end-stage emphysema--oxygen dependent 5. History of pulmonary hypertensio--on sildenafil. 6. Hemoptysis probably due to pneumonia and xarelto--xarelto/blood thinners on hold. Old blood seen in tube. Decreased. The family is aware of grave condition. We are giving him through the weekend to see if there is any improvement ANAHI RAMOS MD Aug 26, 2020 13:08
[2020-08-26 14:12] VITALS: BP 144/54
[2020-08-26] MEDS: DexMEDEtomidine 250 ML DRIP 250 ML IV SCH (17:22)
[2020-08-26 19:20] VITALS: BP 107/50
[2020-08-26] MEDS ORDERED: NOREPINEPHRINE 8 MG/250 ML 250 ML IV ONE (20:22)
[2020-08-26 22:33] VITALS: BP 146/68
[2020-08-27] MEDS: PROPOFOL DRIP (ICU) 100 ML IV SCH ×5 (01:13→22:58)
[2020-08-27] MEDS: NS IV 1000 ML 1,000 ML IV SCH ×3 (02:08→20:02)
[2020-08-27 02:33] VITALS: BP 130/58
[2020-08-27] MEDS: RT-ALBUTEROL/IPRATROPIUM 3 ML (DUONEB) VIAL INH SCH ×6 (02:33→22:47)
[2020-08-27 03:33] LABS: ABG BASE EXCESS -0.9 MMOL/L (-2.5-2.5); ABG OXYGEN SATURATION 96 % (94-100); ABG PCO2 53 MMHG (35-45); ABG PO2 98 MMHG (79-93); ABG TCO2 26.6 MMOL/L (21.0-31.0); BASOPHILS % (AUTO) 0 % (0-10); EOSINOPHILS # (AUTO) 0.1 10^3/uL (0.0-0.3); EOSINOPHILS % (AUTO) 0 % (0-10); HEMATOCRIT 33 % (40-54); HEMOGLOBIN 10.1 g/dL (13.3-17.7); LYMPHOCYTES # (AUTO) 0.8 10^3/uL (1.0-4.0); LYMPHOCYTES % (AUTO) 6 % (12-44); MEAN CORPUSCULAR HEMOGLOBIN 30 pg (25-34); MEAN CORPUSCULAR HGB CONC 31 g/dL (32-36); MEAN CORPUSCULAR VOLUME 99 fL (80-99); MEAN PLATELET VOLUME 9.3 fL (9.0-12.2); MONOCYTES # (AUTO) 0.8 10^3/uL (0.0-1.0); MONOCYTES % (AUTO) 6 % (0-12); NEUTROPHILS # (AUTO) 12.1 10^3/uL (1.8-7.8); NEUTROPHILS % (AUTO) 84 % (42-75); PLATELET COUNT 373 10^3/uL (130-400); WHITE BLOOD COUNT 14.4 10^3/uL (4.3-11.0)
[2020-08-27 03:36] LABS: ALLENS TEST ART LINE; INSPIRED O2 40%; VENTILATOR YES
[2020-08-27 03:37] LABS: PATIENT TEMP 36.4
[2020-08-27 03:44] LABS: ALBUMIN 2.4 GM/DL (3.2-4.5); CHLORIDE 115 MMOL/L (98-107); POTASSIUM 4.2 MMOL/L (3.6-5.0); SODIUM 145 MMOL/L (135-145)
[2020-08-27 03:47] LABS: GLUCOSE 126 MG/DL (70-105); TOTAL PROTEIN 5.2 GM/DL (6.4-8.2)
[2020-08-27 03:48] LABS: BILIRUBIN,TOTAL 0.4 MG/DL (0.1-1.0); CARBON DIOXIDE 25 MMOL/L (21-32)
[2020-08-27 03:50] LABS: ALKALINE PHOSPHATASE 76 U/L (40-136); CREATININE SERUM 0.73 MG/DL (0.60-1.30); GFR ESTIMATED > 60
[2020-08-27 03:51] LABS: BUN/CREATININE RATIO 29
[2020-08-27 03:53] LABS: ALANINE AMINOTRANSFERASE 32 U/L (0-55); MAGNESIUM 2.6 MG/DL (1.6-2.4)
[2020-08-27 03:59] LABS: ABG PH 7.29 (7.37-7.43)
[2020-08-27] MEDS: KCL 20 MEQ TAB (K-DUR) PO SCH (05:46)
[2020-08-27] MEDS: MAGNESIUM 1 GM/100 ML IVPB 100 ML IV SCH (05:46)
[2020-08-27] MEDS: POTASSIUM CL 10MEQ/50ML IVPB 50 ML IV SCH (05:46)
[2020-08-27] MEDS: inSUlin ASPART (NovoLOG) 1 UNIT/0.01 ML (CHARGE PER UNIT) SC SCH ×3 (05:47→17:57)
[2020-08-27] MEDS: CEFEPIME INJECTION 1,000 MG in WATER (STERILE) FOR INJECTION 10 ML IV SCH ×3 (05:53→18:07)
[2020-08-27] MEDS: HYDROCORTISONE 100 MG/2 ML (Solu-CORTEF) VIAL IV SCH ×3 (05:53→21:43)
[2020-08-27] MEDS: VANCOMYCIN 1250 MG/NS 250 ML IVPB IV SCH ×2 (06:08)
[2020-08-27 07:02] VITALS: BP 135/62
[2020-08-27] MEDS ORDERED: RIVA20TA PO (08:02)
[2020-08-27] MEDS ORDERED: SPIR25TA5 PO (08:02)
[2020-08-27] MEDS ORDERED: DRON400T6 PO (08:02)
[2020-08-27] MEDS: PANTOPRAZOLE 40 MG (PROTONIX) VIAL IV SCH (08:10)
--- NOTE | 2020-08-27 09:39 | Diagnostic Imaging Report ---
INDICATION: Respiratory distress. Comparison with 08/26/2020 portable chest. FINDINGS: Tubes and lines remain in good position. There continue to be rather dense 5 lobe infiltrates. The lungs are well-aerated. There has been improvement in aeration in the left lower lobe with some decrease in infiltrate density as well. Median sternotomy changes are again noted with mild cardiomegaly. IMPRESSION: Findings consistent with RDS with slight overall improvement especially in the left lower lung when compared with previous exam. Dictated by: Dictated on workstation # [id number]
--- NOTE | 2020-08-27 10:06 | Tele-ICU Progress Note ---
Subjective Date Seen by a Provider: Aug 27, 2020 Time Seen by a Provider: 10:06 Sepsis Event Evaluation Height, Weight, BMI Height: 5'11.00" Weight: 251lbs. 0.8oz. 112.191461st; 30.77 BMI Method:Stated Exam Exam Patient acknowledged, consented, and participated in this virtual visit which was conducted using real time audio/video Vital Signs Date Time Temp Pulse Resp B/P (MAP) Pulse Ox O2 Delivery O2 Flow Rate FiO2 08/27/20 08:13 36.1 08/27/20 08:11 131/57 08/27/20 07:02 61 27 96 35 08/27/20 07:00 56 08/27/20 06:11 Mechanical Ventilator 35.00 08/27/20 06:00 72 22 Mechanical Ventilator 30.00 08/27/20 05:44 Mechanical Ventilator 30.00 08/27/20 05:00 58 97 Mechanical Ventilator 40.00 08/27/20 04:55 126/56 08/27/20 04:38 Mechanical Ventilator 40 08/27/20 04:00 61 15 98 Mechanical Ventilator 40.00 08/27/20 03:29 36.4 08/27/20 03:00 63 19 98 Mechanical Ventilator 40.00 08/27/20 02:33 62 30 99 40 08/27/20 02:00 63 28 99 Mechanical Ventilator 40.00 08/27/20 01:13 124/56 08/27/20 01:00 65 08/27/20 01:00 65 9 98 Mechanical Ventilator 40.00 08/27/20 00:00 72 11 97 Mechanical Ventilator 40.00 08/27/20 00:00 Mechanical Ventilator 40 08/26/20 23:04 36.6 08/26/20 23:00 80 17 98 Mechanical Ventilator 40.00 08/26/20 22:37 146/78 08/26/20 22:33 71 34 98 40 08/26/20 22:00 68 17 97 Mechanical Ventilator 40.00 08/26/20 21:36 103/50 08/26/20 21:35 100/49 08/26/20 21:00 72 19 97 Mechanical Ventilator 40.00 08/26/20 20:24 99/47 08/26/20 20:00 87 17 98 Mechanical Ventilator 40.00 08/26/20 19:57 98 Mechanical Ventilator 40 08/26/20 19:43 Mechanical Ventilator 40.00 08/26/20 19:41 36.7 08/26/20 19:20 93 34 98 40 08/26/20 19:00 96 08/26/20 19:00 96 14 97 Mechanical Ventilator 40.00 08/26/20 18:27 110 144/54 08/26/20 18:00 110 12 95 Mechanical Ventilator 40.00 08/26/20 17:22 114 144/54 08/26/20 17:00 114 21 91 Mechanical Ventilator 40.00 08/26/20 16:00 112 19 91 Mechanical Ventilator 40.00 08/26/20 15:07 Mechanical Ventilator 40 08/26/20 15:00 109 20 93 Mechanical Ventilator 40.00 08/26/20 14:52 105 144/54 08/26/20 14:12 105 30 94 40 08/26/20 14:00 109 23 92 Mechanical Ventilator 40.00 08/26/20 13:00 106 20 93 Mechanical Ventilator 40.00 08/26/20 12:49 89 08/26/20 12:02 92 26 93 40 08/26/20 12:00 Mechanical Ventilator 40 08/26/20 12:00 83 13 93 Mechanical Ventilator 40.00 08/26/20 12:00 36.2 08/26/20 11:02 80 156/60 08/26/20 11:00 80 14 98 Mechanical Ventilator 40.00 I & O 08/27/20 06:59 Intake Total 2835.0 ml Output Total 2625 ml Balance 210.0 ml Height & Weight Height: 5'11.00" Weight: 251lbs. 0.8oz. 112.863632zr; 30.77 BMI Method:Stated General Appearance: No Apparent Distress, Other (comfortably ventilated) HEENT: Normal ENT Inspection, Other (serosanguinous fluid in tube) Neck: Full Range of Motion Respiratory: Chest Non Tender, Lungs Clear, Normal Breath Sounds, No Accessory Muscle Use, No Respiratory Distress Cardiovascular: Regular Rate, Rhythm, No Edema Capillary Refill: Less Than 3 Seconds Gastrointestinal: normal bowel sounds, soft, no organomegaly Extremity: No Pedal Edema Neurologic/Psychiatric: Other (comfortable) Skin: Normal Color, Warm/Dry Results Lab Laboratory Tests 08/26/20 04:30 08/27/20 03:25 Assessment/Plan Assessment/Plan (Tele-ICU Physician , Progress Note ) Available chart/ vitals / labs / Images reviewed Video assessment done using teleICU camera, rest of exam as per RN Discussed with RN Events overnight : decreased fio2 Afebrile hemodynamically stable, no pressors, I/O = neg 180 Drips: ns 150 propofol , precedex As per RN exam : sedated Consultants: Hospital course: 08/23 WITH SOB AND HEMOPTYSIS AND HYPOXIC ON CHRONIC 6L o2- > bipap 24/07 50% 08/24 intubated - 500, FiO2 40%, respiratory rate 25 and a PEEP of 8. 08/27 - AC 25 - 500 - 35 % FiO2 with a PEEP of 8 pap 35 VENT SETTINGS. AC 25 - 500 - 35 % FiO2 with a PEEP of 8 pap 35 ABG reviewed Sedation: RASS - 2 propofol , precedex Not candidate for SBTContraindications : Cardiovascular Stability / Sedation Score / FI02/PEEP / ABG / CXR Consultants: A/P Acute on chronic resp failure- hypoxic and hypercarbic respiratory failure secondary to underlying emphysema, ILD and possibly superimposed pneumonia - intubated - AC 25 - 500 - 35 % FiO2 with a PEEP of 8 pap 35 - mild resp acidosis - will cont to monitor - decrease sedation PNA - sputum + for PSA - stop vanco ( 5d( , cont cefepime - covis swab (-)ve shock - off levo this am - stress dose steroids SC 50 q 12 08/24 - cotn today COPD - last CT chest 06/2020 with severe emphysematous changes upper lobes , chronic plural scarring , some fibrotic changes - on chronic prednisone Severe pulm HTN , most likely due to lung DZ , RVSP 65mm Hg by ECHO - on sildenafil on hold now , monitor volume status carefully , decrease IVF Hemoptysis - due to combination of infection and coagulopathy in face of pHTN - monitor - minimal now - will start proph lovenox Anemia stable ECHO 12/2019 - EF 55%, PAF , s/p ablation/ cardioversion - sinus now - on AC with Xarelto , and with INR 1.9 on admission - on hold - heparin sc propf started 08/27 DM - ISS , as per PCP Lines R IJ : , (Central Line Necessity Reviewed) Vivas: + OG: + Nutrition: TF tolerates Analgesia: Anxiety/ delirium VTE Prophylaxis: starting 08/27 Stress Ulcer Prophylaxis: ppi Glycemic Control: + Plans in collaboration with bedside consultants and IM MDs. Discussed with RN to reach out if any questions or concerns A total of 36 minutes of critical care time was devoted to this patient today, required to treat and/or prevent further deterioration of critical care condition ( as above ) . CASSIA WEST MD Aug 27, 2020 10:06
[2020-08-27] MEDS: RT--FLUTICASONE/SALMETEROL 232-14 (AIRDUO RespiCLICK) IH SCH ×2 (11:06→19:18)
[2020-08-27 11:07] VITALS: BP 108/48
[2020-08-27] MEDS: ENOXAPARIN 40 MG/0.4 ML (LOVENOX) SYR SC SCH (13:11)
[2020-08-27] MEDS: DexMEDEtomidine 250 ML DRIP 250 ML IV SCH (13:12)
[2020-08-27] MEDS: NOREPINEPHRINE 8 MG/250 ML 250 ML IV SCH (14:48)
[2020-08-27 14:53] VITALS: BP 117/54
--- NOTE | 2020-08-27 16:40 | Progress Note ---
Subjective Date Seen by a Provider: Aug 27, 2020 Time Seen by a Provider: 08:30 Subjective/Events-last exam Fwup acute on chronic respiratory failure, Emphysema/COPD, Interstitial Lung Disease, Hypotensive Shock, PAF. Sedated on ventilator. PEEP down to 8 and FiO2 down to 35%. Objective Exam Vital Signs Date Time Temp Pulse Resp B/P (MAP) Pulse Ox O2 Delivery O2 Flow Rate FiO2 08/27/20 15:00 49 9 Mechanical Ventilator 35.00 08/27/20 15:00 49 9 Mechanical Ventilator 35.00 08/27/20 14:53 50 30 97 35 08/27/20 14:00 53 10 Mechanical Ventilator 35.00 08/27/20 13:12 110/51 08/27/20 13:03 36.2 08/27/20 13:00 55 21 Mechanical Ventilator 35.00 08/27/20 13:00 54 08/27/20 12:45 Mechanical Ventilator 35 08/27/20 11:07 67 31 96 35 08/27/20 11:00 76 16 Mechanical Ventilator 35.00 08/27/20 11:00 76 16 Mechanical Ventilator 35.00 08/27/20 10:00 73 Mechanical Ventilator 35.00 08/27/20 09:00 111 Mechanical Ventilator 35.00 08/27/20 08:13 36.1 08/27/20 08:11 131/57 08/27/20 08:00 65 26 Mechanical Ventilator 35.00 08/27/20 07:45 Mechanical Ventilator 35 08/27/20 07:02 61 27 96 35 08/27/20 07:00 56 08/27/20 07:00 58 16 Mechanical Ventilator 35.00 08/27/20 06:11 Mechanical Ventilator 35.00 08/27/20 06:00 72 22 Mechanical Ventilator 30.00 08/27/20 05:44 Mechanical Ventilator 30.00 08/27/20 05:00 58 97 Mechanical Ventilator 40.00 08/27/20 04:55 126/56 08/27/20 04:38 Mechanical Ventilator 40 08/27/20 04:00 61 15 98 Mechanical Ventilator 40.00 08/27/20 03:29 36.4 08/27/20 03:00 63 19 98 Mechanical Ventilator 40.00 08/27/20 02:33 62 30 99 40 08/27/20 02:00 63 28 99 Mechanical Ventilator 40.00 08/27/20 01:13 124/56 08/27/20 01:00 65 08/27/20 01:00 65 9 98 Mechanical Ventilator 40.00 08/27/20 00:00 72 11 97 Mechanical Ventilator 40.00 08/27/20 00:00 Mechanical Ventilator 40 08/26/20 23:04 36.6 08/26/20 23:00 80 17 98 Mechanical Ventilator 40.00 08/26/20 22:37 146/78 08/26/20 22:33 71 34 98 40 08/26/20 22:00 68 17 97 Mechanical Ventilator 40.00 08/26/20 21:36 103/50 08/26/20 21:35 100/49 08/26/20 21:00 72 19 97 Mechanical Ventilator 40.00 08/26/20 20:24 99/47 08/26/20 20:00 87 17 98 Mechanical Ventilator 40.00 08/26/20 19:57 98 Mechanical Ventilator 40 08/26/20 19:43 Mechanical Ventilator 40.00 08/26/20 19:41 36.7 08/26/20 19:20 93 34 98 40 08/26/20 19:00 96 08/26/20 19:00 96 14 97 Mechanical Ventilator 40.00 08/26/20 18:27 110 144/54 08/26/20 18:00 110 12 95 Mechanical Ventilator 40.00 08/26/20 17:22 114 144/54 08/26/20 17:00 114 21 91 Mechanical Ventilator 40.00 I & O 08/27/20 07:00 Intake Total 2835.0 ml Output Total 2625 ml Balance 210.0 ml Capillary Refill : Less Than 3 Seconds General Appearance: Other (sedated on ventilator) Respiratory: Lungs Clear, Decreased Breath Sounds Cardiovascular: Regular Rate, Rhythm, Systolic Murmur Gastrointestinal: normal bowel sounds, soft Extremity: No Pedal Edema Neurologic/Psychiatric: Other (sedated on ventilator) Results Lab Laboratory Tests 08/26/20 17:11: Glucometer 100 08/26/20 22:41: Glucometer 110 08/27/20 03:25: White Blood Count 14.4H, Red Blood Count 3.32L, Hemoglobin 10.1L, Hematocrit 33L , Mean Corpuscular Volume 99, Mean Corpuscular Hemoglobin 30, Mean Corpuscular Hemoglobin Concent 31L, Red Cell Distribution Width 16.3H, Platelet Count 373, Mean Platelet Volume 9.3, Immature Granulocyte % (Auto) 4, Neutrophils (%) (Auto) 84H, Lymphocytes (%) (Auto) 6L, Monocytes (%) (Auto) 6, Eosinophils (%) (Auto) 0, Basophils (%) (Auto) 0, Neutrophils # (Auto) 12.1H, Lymphocytes # (Auto) 0.8L, Monocytes # (Auto) 0.8, Eosinophils # (Auto) 0.1, Basophils # (Auto) 0.0, Immature Granulocyte # (Auto) 0.6H, Blood Gas Puncture Site ARTLINE, Blood Gas Patient Temperature 36.4, Arterial Blood pH 7.29*L, Arterial Blood Partial Pressure CO2 53H, Arterial Blood Partial Pressure O2 98H, Arterial Blood HCO3 25, Arterial Blood Total CO2 26.6, Arterial Blood Oxygen Saturation 96, Arterial Blood Base Excess -0.9, Alexy Test ART LINE, Blood Gas Ventilator Setting YES, Blood Gas Inspired Oxygen 40%, Sodium Level 145, Potassium Level 4.2, Chloride Level 115H, Carbon Dioxide Level 25, Anion Gap 5, Blood Urea Nitrogen 21H, Creatinine 0.73, Estimat Glomerular Filtration Rate > 60, BUN/Creatinine Ratio 29, Glucose Level 126H, Calcium Level 8.0L, Corrected Calcium 9.3, Magnesium Level 2.6H, Total Bilirubin 0.4, Aspartate Amino Transf (AST/SGOT) 19, Alanine Aminotransferase (ALT/SGPT) 32, Alkaline Phosphatase 76, Total Protein 5.2L, Albumin 2.4L 08/27/20 12:19: Glucometer 124H Microbiology 08/26/20 Gram Stain - Final, Resulted 08/26/20 Sputum Culture - Preliminary, Resulted Pseudomonas aeruginosa 08/23/20 Blood Culture - Preliminary, Resulted No growth Assessment/Plan Assessment/Plan Assess & Plan/Chief Complaint 1. Acute on Chronic Respiratory Failure--sedated on ventilator 2. Chronic Airspace Disease with Superimposed Pneumonia--on abx 3. Emphysema/COPD/Interstitial Lung Disease--poor prognosis the longer patient is on ventilator 4. Hemoptysis--resolved, holding blood thinners 5. Hypotensive Shock--off pressors 6. History of PAF--in NSR, blood thinners on hold due to hemoptysis Discussed with at bedside, pulmonology notes reviewed Clinical Quality Measures Admission Status Admission Dx 1. Acute on chronic hypoxic and hypercarbic respiratory failure secondary to underlying emphysema and interstitial lung disease with probably superimposed pneumonia--now sedated on ventilator with IV Vanc and Cefepime, pulmonary/critical care consult 2. Hypotension--on IV fluids and hydrocortisone started due to chronic prednisone use, Mid-line unsuccessful so surgery consulted for central line as may need pressors 3. History of paroxysmal atrial fibrillation--currently in NSR, Xarelto on hold due to hemoptysis 4. Chronic end-stage emphysema--oxygen dependent 5. History of pulmonary hypertensio--on sildenafil. 6. Hemoptysis probably due to pneumonia and xarelto--xarelto/blood thinners on hold I discussed grave prognosis with son due to his extensive underlying lung disease but family would like to at least give him through the weekend to see if there is any improvement AUBREE GALVAN DO Aug 27, 2020 16:40
[2020-08-27 19:19] VITALS: BP 114/47
[2020-08-27 22:47] VITALS: BP 140/66
[2020-08-28] VITALS (7 sets, daily range): BP systolic 115–153; BP diastolic 46–58
[2020-08-28] MEDS: inSUlin ASPART (NovoLOG) 1 UNIT/0.01 ML (CHARGE PER UNIT) SC SCH ×4 (00:29→18:22)
[2020-08-28] MEDS: CEFEPIME INJECTION 1,000 MG in WATER (STERILE) FOR INJECTION 10 ML IV SCH ×3 (00:38→17:31)
[2020-08-28] MEDS: RT-ALBUTEROL/IPRATROPIUM 3 ML (DUONEB) VIAL INH SCH ×6 (02:24→22:12)
[2020-08-28] MEDS: PROPOFOL DRIP (ICU) 100 ML IV SCH ×4 (03:15→20:10)
[2020-08-28 03:37] LABS: ABG BASE EXCESS 0.3 MMOL/L (-2.5-2.5); ABG OXYGEN SATURATION 89 % (94-100); ABG PCO2 46 MMHG (35-45); ABG PH 7.36 (7.37-7.43); ABG PO2 53 MMHG (79-93); ABG TCO2 26.8 MMOL/L (21.0-31.0)
[2020-08-28 03:39] LABS: ALLENS TEST ART LINE; BASOPHILS % (AUTO) 0 % (0-10); EOSINOPHILS % (AUTO) 0 % (0-10); HEMATOCRIT 32 % (40-54); HEMOGLOBIN 9.7 g/dL (13.3-17.7); INSPIRED O2 30%; LYMPHOCYTES # (AUTO) 0.5 10^3/uL (1.0-4.0); LYMPHOCYTES % (AUTO) 6 % (12-44); MEAN CORPUSCULAR HEMOGLOBIN 30 pg (25-34); MEAN CORPUSCULAR HGB CONC 31 g/dL (32-36); MEAN CORPUSCULAR VOLUME 99 fL (80-99); MEAN PLATELET VOLUME 9.4 fL (9.0-12.2); MONOCYTES # (AUTO) 0.4 10^3/uL (0.0-1.0); MONOCYTES % (AUTO) 5 % (0-12); NEUTROPHILS # (AUTO) 7.3 10^3/uL (1.8-7.8); NEUTROPHILS % (AUTO) 85 % (42-75); PATIENT TEMP 36; PLATELET COUNT 266 10^3/uL (130-400); VENTILATOR YES; WHITE BLOOD COUNT 8.6 10^3/uL (4.3-11.0)
[2020-08-28 03:47] LABS: ALBUMIN 2.4 GM/DL (3.2-4.5); CHLORIDE 114 MMOL/L (98-107); POTASSIUM 4.2 MMOL/L (3.6-5.0); SODIUM 146 MMOL/L (135-145)
[2020-08-28 03:48] LABS: CALCIUM 8.1 MG/DL (8.5-10.1)
[2020-08-28 03:49] LABS: GLUCOSE 151 MG/DL (70-105); TRIGLYCERIDES 104 MG/DL (<150)
[2020-08-28 03:50] LABS: TOTAL PROTEIN 5.1 GM/DL (6.4-8.2)
[2020-08-28 03:51] LABS: BILIRUBIN,TOTAL 0.4 MG/DL (0.1-1.0); CARBON DIOXIDE 25 MMOL/L (21-32)
[2020-08-28 03:53] LABS: ALKALINE PHOSPHATASE 78 U/L (40-136); CREATININE SERUM 0.62 MG/DL (0.60-1.30); GFR ESTIMATED > 60
[2020-08-28 03:54] LABS: BUN/CREATININE RATIO 32
[2020-08-28 03:56] LABS: ALANINE AMINOTRANSFERASE 27 U/L (0-55); MAGNESIUM 2.4 MG/DL (1.6-2.4)
[2020-08-28] MEDS: MAGNESIUM 1 GM/100 ML IVPB 100 ML IV SCH (04:09)
[2020-08-28] MEDS: POTASSIUM CL 10MEQ/50ML IVPB 50 ML IV SCH (04:09)
[2020-08-28] MEDS: NOREPINEPHRINE 8 MG/250 ML 250 ML IV SCH (04:09)
[2020-08-28] MEDS: KCL 20 MEQ TAB (K-DUR) PO SCH (04:09)
[2020-08-28] MEDS: DexMEDEtomidine 250 ML DRIP 250 ML IV SCH (06:17)
[2020-08-28] MEDS: HYDROCORTISONE 100 MG/2 ML (Solu-CORTEF) VIAL IV SCH ×2 (06:29→20:10)
[2020-08-28] MEDS: NS IV 1000 ML 1,000 ML IV SCH (07:31)
[2020-08-28] MEDS: PANTOPRAZOLE 40 MG (PROTONIX) VIAL IV SCH (08:39)
--- NOTE | 2020-08-28 09:04 | Diagnostic Imaging Report ---
Indication: Intubation Frontal chest obtained at 0838 a.m. compared to yesterday ET tube and NG tube and right IJ catheter are unchanged. Extensive bilateral infiltrates are again noted are similar to the prior study. There is no pneumothorax or pleural fluid. There is marked cardiomegaly. IMPRESSION: Marked cardiomegaly. Unchanged extensive bilateral infiltrates. Life support lines are stable. Dictated by: Dictated on workstation # [id number]
--- NOTE | 2020-08-28 09:34 | Tele-ICU Progress Note ---
Subjective Date Seen by a Provider: Aug 28, 2020 Time Seen by a Provider: 09:33 Sepsis Event Evaluation Height, Weight, BMI Height: 5'11.00" Weight: 251lbs. 0.8oz. 112.959812xp; 30.77 BMI Method:Stated Exam Exam Patient acknowledged, consented, and participated in this virtual visit which was conducted using real time audio/video Vital Signs Date Time Temp Pulse Resp B/P (MAP) Pulse Ox O2 Delivery O2 Flow Rate FiO2 08/28/20 08:40 61 134/56 08/28/20 07:52 Mechanical Ventilator 80.00 08/28/20 07:43 36.0 08/28/20 06:52 61 08/28/20 06:52 61 37 94 35 08/28/20 06:17 133/56 08/28/20 06:00 75 32 94 Mechanical Ventilator 35.00 08/28/20 05:00 62 100 Mechanical Ventilator 35.00 08/28/20 04:15 36.0 08/28/20 04:07 Mechanical Ventilator 30 08/28/20 04:00 71 87 Mechanical Ventilator 35.00 08/28/20 03:15 125/56 08/28/20 03:00 53 17 93 Mechanical Ventilator 35.00 08/28/20 02:24 51 29 92 35 08/28/20 02:00 48 9 97 Mechanical Ventilator 35.00 08/28/20 01:00 51 08/28/20 01:00 51 10 96 Mechanical Ventilator 35.00 08/28/20 00:28 Mechanical Ventilator 35 08/28/20 00:00 36.0 08/28/20 00:00 56 13 95 Mechanical Ventilator 35.00 08/27/20 23:00 62 24 96 Mechanical Ventilator 35.00 08/27/20 22:58 120/56 08/27/20 22:47 60 28 98 35 08/27/20 22:00 49 28 97 Mechanical Ventilator 35.00 08/27/20 21:00 52 28 95 Mechanical Ventilator 35.00 08/27/20 20:09 60 26 95 Mechanical Ventilator 35.00 08/27/20 20:00 52 28 95 Mechanical Ventilator 35.00 08/27/20 20:00 Mechanical Ventilator 35 08/27/20 19:50 35.9 08/27/20 19:19 58 33 92 35 08/27/20 19:00 60 25 95 Mechanical Ventilator 35.00 08/27/20 19:00 60 08/27/20 18:00 74 100 Mechanical Ventilator 35.00 08/27/20 17:58 74 128/53 08/27/20 17:00 65 29 99 Mechanical Ventilator 35.00 08/27/20 16:30 Mechanical Ventilator 35 08/27/20 16:00 55 8 97 Mechanical Ventilator 35.00 08/27/20 16:00 35.6 08/27/20 15:00 49 9 Mechanical Ventilator 35.00 08/27/20 15:00 49 9 Mechanical Ventilator 35.00 08/27/20 14:53 50 30 97 35 08/27/20 14:00 53 10 Mechanical Ventilator 35.00 08/27/20 13:12 110/51 08/27/20 13:03 36.2 08/27/20 13:00 55 21 Mechanical Ventilator 35.00 08/27/20 13:00 54 08/27/20 12:45 Mechanical Ventilator 35 08/27/20 11:07 67 31 96 35 08/27/20 11:00 76 16 Mechanical Ventilator 35.00 08/27/20 11:00 76 16 Mechanical Ventilator 35.00 08/27/20 10:00 73 Mechanical Ventilator 35.00 I & O 08/28/20 07:00 Intake Total 1060 ml Output Total 1300 ml Balance -240 ml Height & Weight Height: 5'11.00" Weight: 251lbs. 0.8oz. 112.231495qd; 30.77 BMI Method:Stated General Appearance: Other (sedated on ventilator) HEENT: Normal ENT Inspection, Other (serosanguinous fluid in tube) Neck: Full Range of Motion Respiratory: Lungs Clear, Decreased Breath Sounds Cardiovascular: Regular Rate, Rhythm, Systolic Murmur Capillary Refill: Less Than 3 Seconds Gastrointestinal: normal bowel sounds, soft Extremity: No Pedal Edema Neurologic/Psychiatric: Other (sedated on ventilator) Skin: Normal Color, Warm/Dry Results Lab Laboratory Tests 08/27/20 03:25 08/28/20 03:21 Assessment/Plan Assessment/Plan (Tele-ICU Physician , Progress Note ) Available chart/ vitals / labs / Images reviewed Video assessment done using teleICU camera, rest of exam as per RN Discussed with RN Events overnight : Afebrile hemodynamically stable, no pressors, I/O = NOT CORRECT ips: ns 150 propofol , precedex As per RN exam : sedated , follow commands last night Consultants: Hospital course: 08/23 WITH SOB AND HEMOPTYSIS AND HYPOXIC ON CHRONIC 6L o2- > bipap 24/07 50% 08/24 intubated - 500, FiO2 40%, respiratory rate 25 and a PEEP of 8. 08/27 - AC 25 - 500 - 35 % FiO2 with a PEEP of 8 pap 35 08/10- fio2 80 % with cough VENT SETTINGS. AC 25 - 500 - 80 % FiO2 with a PEEP of 8 pap 35 ABG reviewed Sedation: RASS - 1 propofol , precedex - afollows commands ?candidate for SBTContraindications : Cardiovascular Stability / Sedation Score / FI02/PEEP / ABG / CXR REVIEWED Consultants: A/P Acute on chronic resp failure- hypoxic and hypercarbic respiratory failure secondary to underlying emphysema, ILD and possibly superimposed pneumonia - intubated - AC 25 - 500 - 85 % FiO2 with a PEEP of 8 pap 35 - INCREASED O2 NEED -with cough spell - possible mucous plug -> will cont nebs and wean ? o2 - consider SBT latter is stable - decrease sedation -STOP IVF PNA - sputum + for PSA - stop vanco ( 5d( , cont cefepime 3 more days - covis swab (-)ve shock - off levo - stress dose steroids SC 50 q 12 08/24 - decrease today COPD - last CT chest 06/2020 with severe emphysematous changes upper lobes , chronic plural scarring , some fibrotic changes - on chronic prednisone Severe pulm HTN , most likely due to lung DZ , RVSP 65mm Hg by ECHO - on sildenafil on hold now , monitor volume status carefully , STOP IVF Hemoptysis - due to combination of infection and coagulopathy in face of pHTN - monitor - minimal now - will start proph lovenox Anemia stable ECHO 12/2019 - EF 55%, PAF , s/p ablation/ cardioversion - sinus now - on AC with Xarelto , and with INR 1.9 on admission - on hold - lovenox sc propf started 08/27 DM - ISS , as per PCP Rising NA - water flashes NGT Lines R IJ : , (Central Line Necessity Reviewed) Vivas: + OG: + Nutrition: TF tolerates Analgesia: Anxiety/ delirium VTE Prophylaxis: starting 7/19 Stress Ulcer Prophylaxis: ppi Glycemic Control: + Plans in collaboration with bedside consultants and IM MDs. Discussed with RN to reach out if any questions or concerns A total of 36 minutes of critical care time was devoted to this patient today, required to treat and/or prevent further deterioration of critical care condition ( as above ) . CASSIA WEST MD Aug 28, 2020 09:34
[2020-08-28] MEDS: ENOXAPARIN 40 MG/0.4 ML (LOVENOX) SYR SC SCH (09:39)
[2020-08-28] MEDS: RT--FLUTICASONE/SALMETEROL 232-14 (AIRDUO RespiCLICK) IH SCH ×2 (10:20→18:46)
[2020-08-28 16:52] LABS: ABG BASE EXCESS 0.8 MMOL/L (-2.5-2.5); ABG OXYGEN SATURATION 92 % (94-100); ABG PCO2 49 MMHG (35-45); ABG PO2 68 MMHG (79-93); ABG TCO2 27.4 MMOL/L (21.0-31.0)
[2020-08-28 16:54] LABS: ABG PH 7.34 (7.37-7.43); ALLENS TEST YES-POS; VENTILATOR YES
--- NOTE | 2020-08-28 17:59 | Progress Note ---
Subjective Date Seen by a Provider: Aug 28, 2020 Time Seen by a Provider: 08:30 Subjective/Events-last exam Fwup acute on chronic respiratory failure, Emphysema/COPD, Interstitial Lung Disease, Hypotensive Shock, PAF. Still sedated on ventilator. Did have coughing episode overnight and had to increase Fi02 back to 100% to maintain sat. Down to 80% now and nurse will try to wean as tolerated. Objective Exam Vital Signs Date Time Temp Pulse Resp B/P (MAP) Pulse Ox O2 Delivery O2 Flow Rate FiO2 08/28/20 17:00 73 74 95 Mechanical Ventilator 60.00 08/28/20 16:00 36.0 08/28/20 16:00 81 22 97 Mechanical Ventilator 60.00 08/28/20 15:24 84 21 100 50 08/28/20 15:00 35 99 Mechanical Ventilator 60.00 08/28/20 14:10 58 32 100 50 08/28/20 14:00 26 100 Mechanical Ventilator 60.00 08/28/20 13:16 51 135/63 08/28/20 13:00 28 100 Mechanical Ventilator 60.00 08/28/20 12:44 61 08/28/20 12:15 Mechanical Ventilator 60 08/28/20 12:00 28 100 Mechanical Ventilator 70.00 08/28/20 11:45 35.2 08/28/20 11:00 26 100 Mechanical Ventilator 70.00 08/28/20 10:25 Mechanical Ventilator 70.00 08/28/20 10:25 51 27 100 35 08/28/20 10:00 49 29 100 Mechanical Ventilator 80.00 08/28/20 09:00 58 20 100 Mechanical Ventilator 80.00 08/28/20 08:40 61 134/56 08/28/20 08:00 Mechanical Ventilator 100 08/28/20 08:00 55 15 100 Mechanical Ventilator 80.00 08/28/20 07:52 Mechanical Ventilator 80.00 08/28/20 07:43 36.0 08/28/20 07:00 65 28 85 Mechanical Ventilator 35.00 08/28/20 06:52 61 08/28/20 06:52 61 37 94 35 08/28/20 06:17 133/56 08/28/20 06:00 75 32 94 Mechanical Ventilator 35.00 08/28/20 05:00 62 100 Mechanical Ventilator 35.00 08/28/20 04:15 36.0 08/28/20 04:07 Mechanical Ventilator 30 08/28/20 04:00 71 87 Mechanical Ventilator 35.00 08/28/20 03:15 125/56 08/28/20 03:00 53 17 93 Mechanical Ventilator 35.00 08/28/20 02:24 51 29 92 35 08/28/20 02:00 48 9 97 Mechanical Ventilator 35.00 08/28/20 01:00 51 08/28/20 01:00 51 10 96 Mechanical Ventilator 35.00 08/28/20 00:28 Mechanical Ventilator 35 08/28/20 00:00 36.0 08/28/20 00:00 56 13 95 Mechanical Ventilator 35.00 08/27/20 23:00 62 24 96 Mechanical Ventilator 35.00 08/27/20 22:58 120/56 08/27/20 22:47 60 28 98 35 08/27/20 22:00 49 28 97 Mechanical Ventilator 35.00 08/27/20 21:00 52 28 95 Mechanical Ventilator 35.00 08/27/20 20:09 60 26 95 Mechanical Ventilator 35.00 08/27/20 20:00 52 28 95 Mechanical Ventilator 35.00 08/27/20 20:00 Mechanical Ventilator 35 08/27/20 19:50 35.9 08/27/20 19:19 58 33 92 35 08/27/20 19:00 60 25 95 Mechanical Ventilator 35.00 08/27/20 19:00 60 08/27/20 18:00 74 100 Mechanical Ventilator 35.00 08/27/20 17:58 74 128/53 I & O 08/28/20 07:00 Intake Total 1060 ml Output Total 1300 ml Balance -240 ml Capillary Refill : Less Than 3 Seconds General Appearance: Other (sedated on ventilator) Respiratory: Decreased Breath Sounds Cardiovascular: Regular Rate, Rhythm Gastrointestinal: normal bowel sounds, soft Extremity: No Pedal Edema Skin: Warm/Dry Results Lab Laboratory Tests 08/27/20 17:57: Glucometer 125H 08/28/20 00:23: Glucometer 134H 08/28/20 03:21: White Blood Count 8.6, Red Blood Count 3.22L, Hemoglobin 9.7L, Hematocrit 32L, Mean Corpuscular Volume 99, Mean Corpuscular Hemoglobin 30, Mean Corpuscular Hemoglobin Concent 31L, Red Cell Distribution Width 15.9H, Platelet Count 266, Mean Platelet Volume 9.4, Immature Granulocyte % (Auto) 4, Neutrophils (%) (Auto) 85H, Lymphocytes (%) (Auto) 6L, Monocytes (%) (Auto) 5, Eosinophils (%) (Auto) 0, Basophils (%) (Auto) 0, Neutrophils # (Auto) 7.3, Lymphocytes # (Auto) 0.5L, Monocytes # (Auto) 0.4, Eosinophils # (Auto) 0.0, Basophils # (Auto) 0.0, Immature Granulocyte # (Auto) 0.3H, Blood Gas Puncture Site ARTLINE, Blood Gas Patient Temperature 36, Arterial Blood pH 7.36L, Arterial Blood Partial Pressure CO2 46H, Arterial Blood Partial Pressure O2 53L, Arterial Blood HCO3 25, Arterial Blood Total CO2 26.8, Arterial Blood Oxygen Saturation 89L, Arterial Blood Base Excess 0.3, Alexy Test ART LINE, Blood Gas Ventilator Setting YES, Blood Gas Inspired Oxygen 30%, Sodium Level 146H, Potassium Level 4.2, Chloride Level 114H, Carbon Dioxide Level 25, Anion Gap 7, Blood Urea Nitrogen 20H, Creatinine 0.62, Estimat Glomerular Filtration Rate > 60, BUN/Creatinine Ratio 32, Glucose Level 151H, Calcium Level 8.1L, Corrected Calcium 9.4, Phosphorus Level 2.5, Magnesium Level 2.4, Total Bilirubin 0.4, Aspartate Amino Transf (AST/SGOT) 17, Alanine Aminotransferase (ALT/SGPT) 27, Alkaline Phosphatase 78, Total Protein 5.1L, Albumin 2.4L, Triglycerides Level 104 08/28/20 11:23: Glucometer 135H 08/28/20 16:05: Blood Gas Puncture Site L RADIAL, Blood Gas Patient Temperature 36.0, Arterial Blood pH 7.34*L, Arterial Blood Partial Pressure CO2 49H, Arterial Blood Partial Pressure O2 68L, Arterial Blood HCO3 26, Arterial Blood Total CO2 27.4, Arterial Blood Oxygen Saturation 92L, Arterial Blood Base Excess 0.8, Alexy Test YES-POS, Blood Gas Ventilator Setting YES, Blood Gas Inspired Oxygen NA 08/28/20 17:44: Glucometer 82 Microbiology 08/26/20 Gram Stain - Final, Resulted 08/26/20 Sputum Culture - Preliminary, Resulted Pseudomonas aeruginosa Usual upper respiratory tristan 08/23/20 Blood Culture - Preliminary, Resulted No growth Assessment/Plan Assessment/Plan Assess & Plan/Chief Complaint 1. Acute on Chronic Respiratory Failure--sedated on ventilator 2. Chronic Airspace Disease with Superimposed Pneumonia--on abx, CXR about the same 3. Emphysema/COPD/Interstitial Lung Disease--poor prognosis the longer patient is on ventilator 4. Hemoptysis--resolved, holding blood thinners but lovenox for DVT prophylaxis restarted 5. Hypotensive Shock--off pressors 6. History of PAF--in NSR, blood thinners on hold due to hemoptysis Discussed with --had questions about mucomyst Clinical Quality Measures Admission Status Admission Dx 1. Acute on chronic hypoxic and hypercarbic respiratory failure secondary to underlying emphysema and interstitial lung disease with probably superimposed pneumonia--now sedated on ventilator with IV Vanc and Cefepime, pulmonary/critical care consult 2. Hypotension--on IV fluids and hydrocortisone started due to chronic prednisone use, Mid-line unsuccessful so surgery consulted for central line as may need pressors 3. History of paroxysmal atrial fibrillation--currently in NSR, Xarelto on hold due to hemoptysis 4. Chronic end-stage emphysema--oxygen dependent 5. History of pulmonary hypertensio--on sildenafil. 6. Hemoptysis probably due to pneumonia and xarelto--xarelto/blood thinners on hold I discussed grave prognosis with son due to his extensive underlying lung disease but family would like to at least give him through the weekend to see if there is any improvement AUBREE GALVAN DO Aug 28, 2020 17:59
[2020-08-29] VITALS (7 sets, daily range): BP systolic 106–174; BP diastolic 48–77
[2020-08-29] MEDS: PROPOFOL DRIP (ICU) 100 ML IV SCH ×3 (00:07→08:33)
[2020-08-29] MEDS: inSUlin ASPART (NovoLOG) 1 UNIT/0.01 ML (CHARGE PER UNIT) SC SCH ×4 (00:33→17:31)
[2020-08-29] MEDS: CEFEPIME INJECTION 1,000 MG in WATER (STERILE) FOR INJECTION 10 ML IV SCH ×4 (00:33→17:31)
[2020-08-29] MEDS: DexMEDEtomidine 250 ML DRIP 250 ML IV SCH ×2 (01:42→17:34)
[2020-08-29] MEDS: RT-ALBUTEROL/IPRATROPIUM 3 ML (DUONEB) VIAL INH SCH ×6 (01:57→23:04)
[2020-08-29 03:40] LABS: ABG BASE EXCESS 3.4 MMOL/L (-2.5-2.5); ABG OXYGEN SATURATION 94 % (94-100); ABG PCO2 48 MMHG (35-45); ABG PH 7.39 (7.37-7.43); ABG PO2 74 MMHG (79-93); ABG TCO2 29.8 MMOL/L (21.0-31.0)
[2020-08-29 03:42] LABS: BASOPHILS % (AUTO) 0 % (0-10); EOSINOPHILS # (AUTO) 0.1 10^3/uL (0.0-0.3); EOSINOPHILS % (AUTO) 1 % (0-10); HEMATOCRIT 31 % (40-54); HEMOGLOBIN 9.4 g/dL (13.3-17.7); LYMPHOCYTES # (AUTO) 0.6 10^3/uL (1.0-4.0); LYMPHOCYTES % (AUTO) 6 % (12-44); MEAN CORPUSCULAR HEMOGLOBIN 30 pg (25-34); MEAN CORPUSCULAR HGB CONC 31 g/dL (32-36); MEAN CORPUSCULAR VOLUME 99 fL (80-99); MEAN PLATELET VOLUME 9.4 fL (9.0-12.2); MONOCYTES # (AUTO) 0.6 10^3/uL (0.0-1.0); MONOCYTES % (AUTO) 6 % (0-12); NEUTROPHILS # (AUTO) 8.5 10^3/uL (1.8-7.8); NEUTROPHILS % (AUTO) 84 % (42-75); PLATELET COUNT 243 10^3/uL (130-400); WHITE BLOOD COUNT 10.1 10^3/uL (4.3-11.0)
[2020-08-29 03:46] LABS: ALLENS TEST ARTLINE; INSPIRED O2 35%; PATIENT TEMP 36.2; VENTILATOR YES
[2020-08-29 04:02] LABS: CHLORIDE 114 MMOL/L (98-107); SODIUM 147 MMOL/L (135-145)
[2020-08-29 04:04] LABS: GLUCOSE 118 MG/DL (70-105)
[2020-08-29 04:05] LABS: CARBON DIOXIDE 26 MMOL/L (21-32)
[2020-08-29 04:07] LABS: CREATININE SERUM 0.58 MG/DL (0.60-1.30); GFR ESTIMATED > 60; PHOSPHORUS 2.3 MG/DL (2.3-4.7)
[2020-08-29 04:08] LABS: BUN/CREATININE RATIO 34
[2020-08-29 04:09] LABS: MAGNESIUM 2.3 MG/DL (1.6-2.4)
[2020-08-29 04:54] LABS: EOSINOPHILS % (MANUAL) 1 %; LYMPHOCYTES % (MANUAL) 4 %; METAMYELOCYTES % 1 %; MONOCYTES % (MANUAL) 7 %; NEUTROPHILS % (MANUAL) 87 %
[2020-08-29 05:18] LABS: ABG BASE EXCESS 2.8 MMOL/L (-2.5-2.5); ABG OXYGEN SATURATION 95 % (94-100); ABG PCO2 44 MMHG (35-45); ABG PH 7.41 (7.37-7.43); ABG PO2 80 MMHG (79-93); ABG TCO2 28.6 MMOL/L (21.0-31.0)
[2020-08-29 05:19] LABS: ALLENS TEST ARTLINE; INSPIRED O2 40%; PATIENT TEMP 36.2; VENTILATOR YES
[2020-08-29] MEDS: POTASSIUM CL 10MEQ/50ML IVPB 50 ML IV SCH (06:45)
[2020-08-29] MEDS: KCL 20 MEQ TAB (K-DUR) PO SCH (06:45)
[2020-08-29] MEDS: MAGNESIUM 1 GM/100 ML IVPB 100 ML IV SCH (06:45)
[2020-08-29] MEDS: HYDROCORTISONE 100 MG/2 ML (Solu-CORTEF) VIAL IV SCH ×2 (08:32→21:33)
[2020-08-29] MEDS: PANTOPRAZOLE 40 MG (PROTONIX) VIAL IV SCH (08:32)
[2020-08-29] MEDS: ENOXAPARIN 40 MG/0.4 ML (LOVENOX) SYR SC SCH (09:17)
--- NOTE | 2020-08-29 09:32 | Diagnostic Imaging Report ---
Indication: Pneumonia. Compared: 08/28/2020 Findings: Severe 5 lobe infiltrates are present, there has been improvements in lung expansion, this is likely the only interval change. There is cardiomegaly similar, sternal wires appeared unremarkable given leftward rotation. ET tube mid thoracic trachea, OG catheter goes beneath the diaphragm, and right IJ tip is near the cavoatrial junction in good position. Blunting of the angles unchanged, likely small amounts of pleural fluid. Impression: Improved lung expansion, no other change with extensive 5 lobe infiltrates unchanged and stable support apparatus with no pneumothorax. Dictated by: Dictated on workstation # [id number]
--- NOTE | 2020-08-29 11:14 | Tele-ICU Progress Note ---
Subjective Time Seen by a Provider: 11:14 Sepsis Event Evaluation Height, Weight, BMI Height: 5'11.00" Weight: 251lbs. 0.8oz. 112.060476jk; 30.77 BMI Method:Stated Exam Exam Patient acknowledged, consented, and participated in this virtual visit which was conducted using real time audio/video Vital Signs Date Time Temp Pulse Resp B/P (MAP) Pulse Ox O2 Delivery O2 Flow Rate FiO2 08/29/20 10:35 69 30 95 40 08/29/20 10:00 60 45 93 Mechanical Ventilator 40.00 08/29/20 09:00 59 94 Mechanical Ventilator 40.00 08/29/20 08:33 67 122/52 08/29/20 08:15 Mechanical Ventilator 40 08/29/20 08:00 73 20 92 Mechanical Ventilator 40.00 08/29/20 07:30 36.1 08/29/20 07:00 58 29 94 Mechanical Ventilator 40.00 08/29/20 06:53 58 31 94 40 08/29/20 06:31 60 08/29/20 06:00 66 27 93 Mechanical Ventilator 40.00 08/29/20 05:22 75 22 93 08/29/20 05:00 73 20 93 Mechanical Ventilator 40.00 08/29/20 04:30 Mechanical Ventilator 40.00 08/29/20 04:30 Mechanical Ventilator 40 08/29/20 04:10 119/59 08/29/20 04:00 54 17 93 Mechanical Ventilator 35.00 08/29/20 03:00 58 15 93 Mechanical Ventilator 35.00 08/29/20 02:00 52 23 100 Mechanical Ventilator 35.00 08/29/20 01:57 52 27 100 50 08/29/20 01:42 60 111/54 08/29/20 01:00 65 08/29/20 01:00 65 17 91 Mechanical Ventilator 35.00 08/29/20 00:52 Mechanical Ventilator 30 08/29/20 00:07 133/59 08/29/20 00:00 61 22 90 Mechanical Ventilator 35.00 08/28/20 23:00 67 92 Mechanical Ventilator 35.00 08/28/20 22:12 64 30 97 50 08/28/20 22:00 65 32 96 Mechanical Ventilator 35.00 08/28/20 21:00 62 30 93 Mechanical Ventilator 35.00 08/28/20 20:55 Mechanical Ventilator 35.00 08/28/20 20:19 36.4 08/28/20 20:10 130/46 08/28/20 20:00 77 22 95 Mechanical Ventilator 40.00 08/28/20 19:19 Mechanical Ventilator 40 08/28/20 19:11 66 25 97 Mechanical Ventilator 40.00 08/28/20 19:00 69 28 99 Mechanical Ventilator 60.00 08/28/20 19:00 70 08/28/20 18:46 67 28 100 50 08/28/20 18:00 67 20 99 Mechanical Ventilator 60.00 08/28/20 17:00 73 74 95 Mechanical Ventilator 60.00 08/28/20 16:05 Mechanical Ventilator 50 08/28/20 16:00 36.0 08/28/20 16:00 81 22 97 Mechanical Ventilator 60.00 08/28/20 15:24 84 21 100 50 08/28/20 15:00 35 99 Mechanical Ventilator 60.00 08/28/20 14:10 58 32 100 50 08/28/20 14:00 26 100 Mechanical Ventilator 60.00 08/28/20 13:16 51 135/63 08/28/20 13:00 28 100 Mechanical Ventilator 60.00 08/28/20 12:44 61 08/28/20 12:15 Mechanical Ventilator 60 08/28/20 12:00 28 100 Mechanical Ventilator 70.00 08/28/20 11:45 35.2 I & O 08/29/20 07:00 Intake Total 730 ml Output Total 1475 ml Balance -745 ml Height & Weight Height: 5'11.00" Weight: 251lbs. 0.8oz. 112.509695ni; 30.77 BMI Method:Stated General Appearance: Other (sedated on ventilator) HEENT: Normal ENT Inspection, Other (serosanguinous fluid in tube) Neck: Full Range of Motion Respiratory: Decreased Breath Sounds Cardiovascular: Regular Rate, Rhythm Capillary Refill: Less Than 3 Seconds Gastrointestinal: normal bowel sounds, soft Extremity: No Pedal Edema Neurologic/Psychiatric: Other (sedated on ventilator) Skin: Warm/Dry Results Lab Laboratory Tests 08/28/20 03:21 08/29/20 03:30 Assessment/Plan Assessment/Plan [facility] [address] [address] Critical Care Progress Note Patient Name: Eduard Mcdonnell Unit Number: [id number] Date of : 1940 Patient Status: Registered Clinic Attending Doctor: Nikia Cruz Aprn Subjective Subjective Date Seen by a Provider: Aug 29, 2020 Time Seen by a Provider: 11:12 Subjective/Events-last exam 80 yo M with advanced pulm fibrosis, intubated on 08/24, pt is DNR but requested intubation if needed, sedated with propofol and precedex Vent AC 25, Vt 500 FiO2 40% PEEP 8 Not following commands, but does follow commands 30 min after sedation holiday yesterday Tried sedation holiday this am did ok, on SBT PSV 5, CPAP 5, did ok for 30-60 min, then put back because family not present Plan is still to try and extubate and if does not do well, re intubate Has thick secretions but does have better cough Would also do cuff leak test before extubation Review of Systems Pulmonary: Dyspnea Sepsis Event - Inpatient/Obs Sepsis Event Evaluation Height, Weight, BMI Height: '" Weight: 251lbs. 0.8oz. 112.097714gb; 29.00 BMI Method:Stated Focused Exam Focused Exam Exam-Pulmonary/CC Exam Exam Patient acknowledged, consented, and participated in this virtual visit which was conducted using real time audio/video Height & Weight Height: 5'.00" Weight: 251lbs. 0.8oz. 112.933091et; 29.00 BMI Method:Stated General Appearance: Severe Distress Respiratory: Respiratory Distress, Wheezing Assessment/Plan Assessment/Plan Assessment/Plan Spoke about 20 min with son about plan, he would like to try another SBT with possible extubation, family will decide if he will re intubation if fails In meantime will keep on Precedex and try to lower propofol Critical Care: Critically Ill Patient Time spent with patient (mins): 35 Problem List Diagnosis/Problems Copy To: Copy RENAY GERMAN MD Aug 29, 2020 08:31 Critical Care: Critically Ill Patient Time spent with patient (mins): 35 RENAY GERMAN MD Aug 29, 2020 11:14
--- NOTE | 2020-08-29 12:34 | Progress Note ---
Subjective Date Seen by a Provider: Aug 29, 2020 Time Seen by a Provider: 08:30 Subjective/Events-last exam Fwup acute on chronic respiratory failure, Emphysema/COPD, Interstitial Lung Disease, Hypotensive Shock, PAF. Weaning trial overnight and did okay so will retry weaning today. Family does not want assisted vent so if able to extubate then would be interested in re-intubation only if needed to get family here to say goodbye. Objective Exam Vital Signs Date Time Temp Pulse Resp B/P (MAP) Pulse Ox O2 Delivery O2 Flow Rate FiO2 08/29/20 11:57 37.0 08/29/20 11:00 64 64 93 Mechanical Ventilator 40.00 08/29/20 10:35 69 30 95 40 08/29/20 10:00 60 45 93 Mechanical Ventilator 40.00 08/29/20 09:00 59 94 Mechanical Ventilator 40.00 08/29/20 08:33 67 122/52 08/29/20 08:15 Mechanical Ventilator 40 08/29/20 08:00 73 20 92 Mechanical Ventilator 40.00 08/29/20 07:30 36.1 08/29/20 07:00 58 29 94 Mechanical Ventilator 40.00 08/29/20 06:53 58 31 94 40 08/29/20 06:31 60 08/29/20 06:00 66 27 93 Mechanical Ventilator 40.00 08/29/20 05:22 75 22 93 08/29/20 05:00 73 20 93 Mechanical Ventilator 40.00 08/29/20 04:30 Mechanical Ventilator 40.00 08/29/20 04:30 Mechanical Ventilator 40 08/29/20 04:10 119/59 08/29/20 04:00 54 17 93 Mechanical Ventilator 35.00 08/29/20 03:00 58 15 93 Mechanical Ventilator 35.00 08/29/20 02:00 52 23 100 Mechanical Ventilator 35.00 08/29/20 01:57 52 27 100 50 08/29/20 01:42 60 111/54 08/29/20 01:00 65 08/29/20 01:00 65 17 91 Mechanical Ventilator 35.00 08/29/20 00:52 Mechanical Ventilator 30 08/29/20 00:07 133/59 08/29/20 00:00 61 22 90 Mechanical Ventilator 35.00 08/28/20 23:00 67 92 Mechanical Ventilator 35.00 08/28/20 22:12 64 30 97 50 08/28/20 22:00 65 32 96 Mechanical Ventilator 35.00 08/28/20 21:00 62 30 93 Mechanical Ventilator 35.00 08/28/20 20:55 Mechanical Ventilator 35.00 08/28/20 20:19 36.4 08/28/20 20:10 130/46 08/28/20 20:00 77 22 95 Mechanical Ventilator 40.00 08/28/20 19:19 Mechanical Ventilator 40 08/28/20 19:11 66 25 97 Mechanical Ventilator 40.00 08/28/20 19:00 69 28 99 Mechanical Ventilator 60.00 08/28/20 19:00 70 08/28/20 18:46 67 28 100 50 08/28/20 18:00 67 20 99 Mechanical Ventilator 60.00 08/28/20 17:00 73 74 95 Mechanical Ventilator 60.00 08/28/20 16:05 Mechanical Ventilator 50 08/28/20 16:00 36.0 08/28/20 16:00 81 22 97 Mechanical Ventilator 60.00 08/28/20 15:24 84 21 100 50 08/28/20 15:00 35 99 Mechanical Ventilator 60.00 08/28/20 14:10 58 32 100 50 08/28/20 14:00 26 100 Mechanical Ventilator 60.00 08/28/20 13:16 51 135/63 08/28/20 13:00 28 100 Mechanical Ventilator 60.00 08/28/20 12:44 61 I & O 08/29/20 07:00 Intake Total 730 ml Output Total 1475 ml Balance -745 ml Capillary Refill : Less Than 3 Seconds General Appearance: Other (sedated on ventilator) Respiratory: Decreased Breath Sounds Cardiovascular: Regular Rate, Rhythm, Systolic Murmur Neurologic/Psychiatric: Other (sedated on ventilator) Results Lab Laboratory Tests 08/28/20 16:05: Blood Gas Puncture Site L RADIAL, Blood Gas Patient Temperature 36.0, Arterial Blood pH 7.34*L, Arterial Blood Partial Pressure CO2 49H, Arterial Blood Partial Pressure O2 68L, Arterial Blood HCO3 26, Arterial Blood Total CO2 27.4, Arterial Blood Oxygen Saturation 92L, Arterial Blood Base Excess 0.8, Alexy Test YES-POS, Blood Gas Ventilator Setting YES, Blood Gas Inspired Oxygen NA 08/28/20 17:44: Glucometer 82 08/29/20 00:30: Glucometer 134H 08/29/20 03:30: Blood Gas Puncture Site ARTLINE, Blood Gas Patient Temperature 36.2, Arterial Blood pH 7.39, Arterial Blood Partial Pressure CO2 48H, Arterial Blood Partial Pressure O2 74L, Arterial Blood HCO3 28H, Arterial Blood Total CO2 29.8, Arterial Blood Oxygen Saturation 94, Arterial Blood Base Excess 3.4H, Alexy Test ARTLINE, Blood Gas Ventilator Setting YES, Blood Gas Inspired Oxygen 35%, White Blood Count 10.1, Red Blood Count 3.10L, Hemoglobin 9.4L, Hematocrit 31L, Mean Corpuscular Volume 99, Mean Corpuscular Hemoglobin 30, Mean Corpuscular Hemoglobin Concent 31L, Red Cell Distribution Width 16.1H, Platelet Count 243, Mean Platelet Volume 9.4, Immature Granulocyte % (Auto) 3, Neutrophils (%) (Auto) 84H, Lymphocytes (%) (Auto) 6L, Monocytes (%) (Auto) 6, Eosinophils (%) (Auto) 1, Basophils (%) (Auto) 0, Neutrophils # (Auto) 8.5H, Lymphocytes # (Auto) 0.6L, Monocytes # (Auto) 0.6, Eosinophils # (Auto) 0.1, Basophils # (Auto) 0.0, Immature Granulocyte # (Auto) 0.3H, Neutrophils % (Manual) 87, Lymphocytes % (Manual) 4, Monocytes % (Manual) 7, Eosinophils % (Manual) 1, Metamyelocytes % 1, Sodium Level 147H, Potassium Level 5.0, Chloride Level 114H, Carbon Dioxide Level 26, Anion Gap 7, Blood Urea Nitrogen 20H, Creatinine 0.58L, Estimat Glomerular Filtration Rate > 60, BUN/Creatinine Ratio 34, Glucose Level 118H, Calcium Level 7.0L, Phosphorus Level 2.3, Magnesium Level 2.3 08/29/20 05:10: Blood Gas Puncture Site ARTLINE, Blood Gas Patient Temperature 36.2, Arterial Blood pH 7.41, Arterial Blood Partial Pressure CO2 44, Arterial Blood Partial Pressure O2 80, Arterial Blood HCO3 27, Arterial Blood Total CO2 28.6, Arterial Blood Oxygen Saturation 95, Arterial Blood Base Excess 2.8H, Alexy Test ARTLINE, Blood Gas Ventilator Setting YES, Blood Gas Inspired Oxygen 40% 08/29/20 11:51: Glucometer 84 Microbiology 08/26/20 Gram Stain - Final, Complete 08/26/20 Sputum Culture - Final, Complete Pseudomonas aeruginosa Usual upper respiratory tristan 08/23/20 Blood Culture - Final, Complete No growth Assessment/Plan Assessment/Plan Assess & Plan/Chief Complaint 1. Acute on Chronic Respiratory Failure--sedated on ventilator, weaning trial today 2. Chronic Airspace Disease with Superimposed Pneumonia--on abx, CXR about the same 3. Emphysema/COPD/Interstitial Lung Disease--poor prognosis the longer patient is on ventilator and family does not want assisted ventilator 4. Hemoptysis--resolved, holding blood thinners but lovenox for DVT prophylaxis restarted 5. Hypotensive Shock--off pressors 6. History of PAF--in NSR, blood thinners on hold due to hemoptysis Discussed with and son at bedside Clinical Quality Measures Admission Status Admission Dx 1. Acute on chronic hypoxic and hypercarbic respiratory failure secondary to underlying emphysema and interstitial lung disease with probably superimposed pneumonia--now sedated on ventilator with IV Vanc and Cefepime, pulmonary/critical care consult 2. Hypotension--on IV fluids and hydrocortisone started due to chronic prednisone use, Mid-line unsuccessful so surgery consulted for central line as may need pressors 3. History of paroxysmal atrial fibrillation--currently in NSR, Xarelto on hold due to hemoptysis 4. Chronic end-stage emphysema--oxygen dependent 5. History of pulmonary hypertensio--on sildenafil. 6. Hemoptysis probably due to pneumonia and xarelto--xarelto/blood thinners on hold I discussed grave prognosis with son due to his extensive underlying lung disease but family would like to at least give him through the weekend to see if there is any improvement AUBERE GALVAN DO Aug 29, 2020 12:34
[2020-08-29 14:30] LABS: ABG OXYGEN SATURATION 98 % (94-100); ABG PCO2 61 MMHG (35-45); ABG PO2 200 MMHG (79-93)
[2020-08-29 14:32] LABS: ABG PH 7.29 (7.37-7.43)
[2020-08-29 14:33] LABS: INSPIRED O2 40% BIPAP; PATIENT TEMP 36.6; VENTILATOR NO
[2020-08-29 15:28] LABS: ABG BASE EXCESS 3.7 MMOL/L (-2.5-2.5); ABG OXYGEN SATURATION 97 % (94-100); ABG PCO2 53 MMHG (35-45); ABG PH 7.35 (7.37-7.43); ABG PO2 135 MMHG (79-93); ABG TCO2 30.5 MMOL/L (21.0-31.0); INSPIRED O2 60% BIPAP; PATIENT TEMP 36.6; VENTILATOR NO
--- NOTE | 2020-08-29 18:03 | Progress Note ---
Standard Progress Note Progress Notes/Assess & Plan Date Seen by a Provider: Aug 29, 2020 Time Seen by a Provider: 18:00 Progress/Assessment & Plan spoke with son at length again, While 2nd ABG was better he is working a little harder to breathe, not much secretions but not wide awake on Precedex Sp02 ok. I think he will eventually tire out, will repeat ABG and if significant rise in pCO2 would advise intubation Options after that include trach/PEG/LTAC or making him DNI son will talk with rest of family RENAY GERMAN MD Aug 29, 2020 18:03
[2020-08-29 18:45] LABS: ABG BASE EXCESS 4.3 MMOL/L (-2.5-2.5); ABG OXYGEN SATURATION 98 % (94-100); ABG PCO2 50 MMHG (35-45); ABG PH 7.38 (7.37-7.43); ABG PO2 135 MMHG (79-93); ABG TCO2 30.8 MMOL/L (21.0-31.0)
[2020-08-29 18:49] LABS: ALLENS TEST POSITIVE; INSPIRED O2 60% BIPAP; PATIENT TEMP 36.6; VENTILATOR NO
[2020-08-29 21:43] LABS: ABG OXYGEN SATURATION 95 % (94-100); ABG PCO2 47 MMHG (35-45); ABG PO2 84 MMHG (79-93); ABG TCO2 30.2 MMOL/L (21.0-31.0)
[2020-08-29 21:44] LABS: ALLENS TEST ART LINE
[2020-08-29 21:45] LABS: INSPIRED O2 60%; PATIENT TEMP 36.5; VENTILATOR NO
[2020-08-30] MEDS ORDERED: DEXTROSE 50% 50 ML (IMS) SYR ONE (00:23)
[2020-08-30] MEDS: inSUlin ASPART (NovoLOG) 1 UNIT/0.01 ML (CHARGE PER UNIT) SC SCH ×5 (00:25→23:19)
[2020-08-30] MEDS: CEFEPIME INJECTION 1,000 MG in WATER (STERILE) FOR INJECTION 10 ML IV SCH ×5 (00:26→23:53)
[2020-08-30] MEDS ORDERED: DEXTROSE 50% 50 ML (IMS) SYR IV ONE (00:30)
[2020-08-30] MEDS ORDERED: morphine INJ 4 MG/ML 1 ML (VIAL/SYRINGE) ONE (00:53)
[2020-08-30] MEDS: morphine INJ 4 MG/ML 1 ML (VIAL/SYRINGE) IVP PRN ×2 (00:55→08:05)
[2020-08-30] MEDS: RT-ALBUTEROL/IPRATROPIUM 3 ML (DUONEB) VIAL INH SCH ×6 (02:15→21:30)
[2020-08-30 02:16] VITALS: BP 172/64
[2020-08-30 04:40] LABS: ABG BASE EXCESS 5.2 MMOL/L (-2.5-2.5); ABG OXYGEN SATURATION 97 % (94-100); ABG PCO2 48 MMHG (35-45); ABG PH 7.41 (7.37-7.43); ABG PO2 113 MMHG (79-93); ABG TCO2 31.4 MMOL/L (21.0-31.0); BASOPHILS % (AUTO) 0 % (0-10); EOSINOPHILS # (AUTO) 0.1 10^3/uL (0.0-0.3); EOSINOPHILS % (AUTO) 1 % (0-10); HEMATOCRIT 32 % (40-54); HEMOGLOBIN 9.7 g/dL (13.3-17.7); LYMPHOCYTES # (AUTO) 0.6 10^3/uL (1.0-4.0); LYMPHOCYTES % (AUTO) 5 % (12-44); MEAN CORPUSCULAR HEMOGLOBIN 30 pg (25-34); MEAN CORPUSCULAR HGB CONC 31 g/dL (32-36); MEAN CORPUSCULAR VOLUME 98 fL (80-99); MEAN PLATELET VOLUME 9.6 fL (9.0-12.2); MONOCYTES # (AUTO) 0.5 10^3/uL (0.0-1.0); MONOCYTES % (AUTO) 4 % (0-12); NEUTROPHILS # (AUTO) 9.5 10^3/uL (1.8-7.8); NEUTROPHILS % (AUTO) 86 % (42-75); PLATELET COUNT 262 10^3/uL (130-400)
[2020-08-30 04:45] LABS: CALCIUM 8.3 MG/DL (8.5-10.1)
[2020-08-30 04:49] LABS: PHOSPHORUS 2.4 MG/DL (2.3-4.7)
[2020-08-30 04:50] LABS: CREATININE SERUM 0.58 MG/DL (0.60-1.30)
[2020-08-30 04:52] LABS: MAGNESIUM 2.2 MG/DL (1.6-2.4)
[2020-08-30 04:55] LABS: ALLENS TEST ART LINE; INSPIRED O2 60%; PATIENT TEMP 36.2; VENTILATOR NO
[2020-08-30] MEDS: KCL 20 MEQ TAB (K-DUR) PO SCH (05:03)
[2020-08-30] MEDS: MAGNESIUM 1 GM/100 ML IVPB 100 ML IV SCH (05:03)
[2020-08-30] MEDS: POTASSIUM CL 10MEQ/50ML IVPB 50 ML IV SCH (05:03)
[2020-08-30 06:40] VITALS: BP 172/72
[2020-08-30] MEDS: HYDROCORTISONE 100 MG/2 ML (Solu-CORTEF) VIAL IV SCH ×2 (08:04→21:09)
[2020-08-30] MEDS: PANTOPRAZOLE 40 MG (PROTONIX) VIAL IV SCH (08:04)
[2020-08-30] MEDS: ENOXAPARIN 40 MG/0.4 ML (LOVENOX) SYR SC SCH (09:22)
[2020-08-30 10:07] VITALS: BP 168/73
--- NOTE | 2020-08-30 11:41 | Tele-ICU Progress Note ---
Subjective Date Seen by a Provider: Aug 30, 2020 Time Seen by a Provider: 11:41 Sepsis Event Evaluation Height, Weight, BMI Height: 5'11.00" Weight: 251lbs. 0.8oz. [id number]; 30.77 BMI Method:Stated Exam Exam Patient acknowledged, consented, and participated in this virtual visit which was conducted using real time audio/video Vital Signs Date Time Temp Pulse Resp B/P (MAP) Pulse Ox O2 Delivery O2 Flow Rate FiO2 08/30/20 11:35 36.8 08/30/20 11:08 NIV Bilevel 60 08/30/20 11:00 82 48 96 NIV Bilevel 60.00 08/30/20 10:07 73 30 97 60.00 08/30/20 10:00 77 20 98 NIV Bilevel 60.00 08/30/20 09:00 58 99 NIV Bilevel 60.00 08/30/20 08:06 36.6 08/30/20 08:00 73 16 97 NIV Bilevel 60.00 08/30/20 08:00 NIV Bilevel 60 08/30/20 07:00 62 28 97 NIV Bilevel 60.00 08/30/20 06:55 78 08/30/20 06:40 75 20 96 60.00 08/30/20 06:00 67 97 NIV Bilevel 60.00 08/30/20 05:00 66 35 96 NIV Bilevel 60.00 08/30/20 04:00 70 35 97 NIV Bilevel 60.00 08/30/20 03:55 36.2 08/30/20 03:43 NIV Bilevel 60 08/30/20 03:00 71 33 97 NIV Bilevel 60.00 08/30/20 02:16 69 22 97 60.00 08/30/20 02:00 74 28 96 NIV Bilevel 60.00 08/30/20 01:00 74 15 96 NIV Bilevel 60.00 08/30/20 01:00 80 08/30/20 00:24 35.9 08/30/20 00:00 72 34 94 NIV Bilevel 60.00 08/30/20 00:00 NIV Bilevel 60 08/29/20 23:04 65 32 95 60.00 08/29/20 23:00 73 21 96 NIV Bilevel 60.00 08/29/20 22:00 64 21 94 NIV Bilevel 60.00 08/29/20 21:00 60 20 96 NIV Bilevel 60.00 08/29/20 20:00 63 21 96 NIV Bilevel 60.00 08/29/20 19:58 36.0 08/29/20 19:49 NIV Bilevel 60 08/29/20 19:00 64 21 95 NIV Bilevel 60.00 08/29/20 19:00 65 08/29/20 18:11 65 32 95 60.00 08/29/20 18:00 63 21 98 NIV Bilevel 60.00 08/29/20 17:34 66 156/64 08/29/20 17:00 69 39 97 NIV Bilevel 60.00 08/29/20 16:09 37.0 08/29/20 16:01 NIV Bilevel 60 08/29/20 16:00 73 31 96 NIV Bilevel 60.00 08/29/20 15:00 82 28 97 NIV Bilevel 60.00 08/29/20 14:41 NIV Bilevel 60.00 08/29/20 14:00 79 25 97 NIV Bilevel 80.00 08/29/20 13:48 75 28 98 80.00 08/29/20 13:38 NIV Bilevel 80.00 08/29/20 13:13 70 25 91 40 08/29/20 13:00 65 46 94 Mechanical Ventilator 40.00 08/29/20 12:28 Mechanical Ventilator 40 08/29/20 12:24 68 08/29/20 12:00 64 30 93 Mechanical Ventilator 40.00 08/29/20 11:57 37.0 I & O 08/30/20 07:00 Intake Total 0 ml Output Total 1975 ml Balance -1975 ml Height & Weight Height: 5'11.00" Weight: 251lbs. 0.8oz. [id number]; 30.77 BMI Method:Stated General Appearance: Other (sedated on ventilator) HEENT: Normal ENT Inspection, Other (serosanguinous fluid in tube) Neck: Full Range of Motion Respiratory: Decreased Breath Sounds Cardiovascular: Regular Rate, Rhythm, Systolic Murmur Capillary Refill: Less Than 3 Seconds Gastrointestinal: normal bowel sounds, soft Extremity: No Pedal Edema Neurologic/Psychiatric: Other (sedated on ventilator) Skin: Warm/Dry Results Lab Laboratory Tests 08/29/20 03:30 08/30/20 04:20 Assessment/Plan Assessment/Plan (Tele-ICU Physician , Progress Note ) Available chart/ vitals / labs / Images reviewed Video assessment done using teleICU camera, rest of exam as per RN Discussed with RN Events overnight : Afebrile hemodynamically stable, no pressors, I/O = NOT CORRECT Drips: ns 150 propofol , precedex As per RN exam : sedated , follow commands last night Consultants: Hospital course: 08/23 WITH SOB AND HEMOPTYSIS AND HYPOXIC ON CHRONIC 6L o2- > bipap 24/07 50% 08/24 intubated - 500, FiO2 40%, respiratory rate 25 and a PEEP of 8. 08/27 - AC 25 - 500 - 35 % FiO2 with a PEEP of 8 pap 35 08/28- fio2 80 % with cough 08/29 - extubated 08/30 -on Bipap 22/11 rr 38 60% A/P Acute on chronic resp failure- hypoxic and hypercarbic respiratory failure secondary to underlying emphysema, ILD and possibly superimposed pneumonia - extubated 08/30, on BIPAP today 22/11 rr 38 60% PNA - sputum + for PSA - stop vanco ( 5d ) TODAY LAST DAY OF cefepime - covis swab (-)ve shock - off levo - stress dose steroids SC 50 q 12 08/24 - decrease slowly COPD - last CT chest 06/2020 with severe emphysematous changes upper lobes , chronic plural scarring , some fibrotic changes - on chronic prednisone Severe pulm HTN , most likely due to lung DZ , RVSP 65mm Hg by ECHO - on sildenafil on hold now , monitor volume status carefully , STOP IVF Hemoptysis - due to combination of infection and coagulopathy in face of pHTN - monitor - minimal now - will start proph lovenox Anemia stable ECHO 12/2019 - EF 55%, PAF , s/p ablation/ cardioversion - sinus now - on AC with Xarelto , and with INR 1.9 on admission - on hold - lovenox sc propf started 08/27 DM - ISS , as per PCP Rising NA - water flashes NGT PER RN - FAMILY AND PATIEN TARE DISCUSSING GOALS OF CARE , COMFORT MEADURES BEING DISCUSSED KEEP FOR NOW ON BIPAP , WILL NEED TO RE-ADRESS NUTRITION IF BIPAP DEPENDENT Lines R IJ : , (Central Line Necessity Reviewed) Vivas: + OG: + Nutrition: TF Analgesia: NA Anxiety/ delirium VTE Prophylaxis: starting 08/27 Stress Ulcer Prophylaxis: ppi Glycemic Control: + Plans in collaboration with bedside consultants and IM MDs. Discussed with RN to reach out if any questions or concerns A total of 36 minutes of critical care time was devoted to this patient today, required to treat and/or prevent further deterioration of critical care condition ( as above ) . CASSIA WEST MD Aug 30, 2020 11:41
[2020-08-30 13:11] VITALS: BP 174/73
[2020-08-30] MEDS: FUROSEMIDE 40 MG/4 ML INJ (LASIX) IVP SCH (13:14)
[2020-08-30] MEDS: D5W 1000 ML IV SOLUTION 1,000 ML IV SCH (13:14)
[2020-08-30] MEDS: DexMEDEtomidine 250 ML DRIP 250 ML IV SCH (13:56)
--- NOTE | 2020-08-30 17:19 | Progress Note ---
Subjective Date Seen by a Provider: Aug 30, 2020 Time Seen by a Provider: 08:30 Subjective/Events-last exam Fwup acute on chronic respiratory failure, Emphysema/COPD, Interstitial Lung Disease, Hypotensive Shock, PAF. Extubated and on BiPAP. Does open eyes to voice. Objective Exam Vital Signs Date Time Temp Pulse Resp B/P (MAP) Pulse Ox O2 Delivery O2 Flow Rate FiO2 08/30/20 16:56 36.4 08/30/20 15:14 NIV Bilevel 50 08/30/20 15:00 76 45 92 NIV Bilevel 50.00 08/30/20 14:00 79 20 93 NIV Bilevel 50.00 08/30/20 13:56 75 174/73 08/30/20 13:13 NIV Bilevel 50.00 08/30/20 13:11 75 40 95 50.00 08/30/20 13:00 75 96 NIV Bilevel 60.00 08/30/20 12:33 75 08/30/20 12:00 86 96 NIV Bilevel 60.00 08/30/20 11:35 36.8 08/30/20 11:08 NIV Bilevel 60 08/30/20 11:00 82 48 96 NIV Bilevel 60.00 08/30/20 10:07 73 30 97 60.00 08/30/20 10:00 77 20 98 NIV Bilevel 60.00 08/30/20 09:00 58 99 NIV Bilevel 60.00 08/30/20 08:06 36.6 08/30/20 08:00 73 16 97 NIV Bilevel 60.00 08/30/20 08:00 NIV Bilevel 60 08/30/20 07:00 62 28 97 NIV Bilevel 60.00 08/30/20 06:55 78 08/30/20 06:40 75 20 96 60.00 08/30/20 06:00 67 97 NIV Bilevel 60.00 08/30/20 05:00 66 35 96 NIV Bilevel 60.00 08/30/20 04:00 70 35 97 NIV Bilevel 60.00 08/30/20 03:55 36.2 08/30/20 03:43 NIV Bilevel 60 08/30/20 03:00 71 33 97 NIV Bilevel 60.00 08/30/20 02:16 69 22 97 60.00 08/30/20 02:00 74 28 96 NIV Bilevel 60.00 08/30/20 01:00 74 15 96 NIV Bilevel 60.00 08/30/20 01:00 80 08/30/20 00:24 35.9 08/30/20 00:00 72 34 94 NIV Bilevel 60.00 08/30/20 00:00 NIV Bilevel 60 08/29/20 23:04 65 32 95 60.00 08/29/20 23:00 73 21 96 NIV Bilevel 60.00 08/29/20 22:00 64 21 94 NIV Bilevel 60.00 08/29/20 21:00 60 20 96 NIV Bilevel 60.00 08/29/20 20:00 63 21 96 NIV Bilevel 60.00 08/29/20 19:58 36.0 08/29/20 19:49 NIV Bilevel 60 08/29/20 19:00 64 21 95 NIV Bilevel 60.00 08/29/20 19:00 65 08/29/20 18:11 65 32 95 60.00 08/29/20 18:00 63 21 98 NIV Bilevel 60.00 08/29/20 17:34 66 156/64 I & O 08/30/20 07:00 Intake Total 0 ml Output Total 1975 ml Balance -1975 ml Capillary Refill : Less Than 3 Seconds General Appearance: Other (on BiPAP) Respiratory: Decreased Breath Sounds Cardiovascular: Regular Rate, Rhythm, Systolic Murmur Gastrointestinal: normal bowel sounds, soft Extremity: Non Tender, No Calf Tenderness, No Pedal Edema Neurologic/Psychiatric: Alert, Oriented x3 Results Lab Laboratory Tests 08/29/20 18:38: Blood Gas Puncture Site LEFT RADIAL, Blood Gas Patient Temperature 36.6, Arterial Blood pH 7.38, Arterial Blood Partial Pressure CO2 50H, Arterial Blood Partial Pressure O2 135H, Arterial Blood HCO3 29H, Arterial Blood Total CO2 30.8, Arterial Blood Oxygen Saturation 98, Arterial Blood Base Excess 4.3H, Alexy Test POSITIVE, Blood Gas Ventilator Setting NO, Blood Gas Inspired Oxygen 60% BIPAP 08/29/20 21:37: Blood Gas Puncture Site ARTLINE, Blood Gas Patient Temperature 36.5, Arterial Blood pH 7.40, Arterial Blood Partial Pressure CO2 47H, Arterial Blood Partial Pressure O2 84, Arterial Blood HCO3 29H, Arterial Blood Total CO2 30.2, Arterial Blood Oxygen Saturation 95, Arterial Blood Base Excess 4.0H, Alexy Test ART LINE, Blood Gas Ventilator Setting NO, Blood Gas Inspired Oxygen 60% 08/29/20 23:50: Glucometer 68L 08/30/20 04:20: Blood Gas Puncture Site ARTLINE, Blood Gas Patient Temperature 36.2, Arterial Blood pH 7.41, Arterial Blood Partial Pressure CO2 48H, Arterial Blood Partial Pressure O2 113H, Arterial Blood HCO3 30H, Arterial Blood Total CO2 31.4H, Arterial Blood Oxygen Saturation 97, Arterial Blood Base Excess 5.2H, Alexy Test ART LINE, Blood Gas Ventilator Setting NO, Blood Gas Inspired Oxygen 60%, White Blood Count 11.0, Red Blood Count 3.20L, Hemoglobin 9.7L, Hematocrit 32L, Mean Corpuscular Volume 98, Mean Corpuscular Hemoglobin 30, Mean Corpuscular Hemoglobin Concent 31L, Red Cell Distribution Width 16.1H, Platelet Count 262, Mean Platelet Volume 9.6, Immature Granulocyte % (Auto) 3, Neutrophils (%) (Auto) 86H, Lymphocytes (%) (Auto) 5L, Monocytes (%) (Auto) 4, Eosinophils (%) (Auto) 1, Basophils (%) (Auto) 0, Neutrophils # (Auto) 9.5H, Lymphocytes # (Auto) 0.6L, Monocytes # (Auto) 0.5, Eosinophils # (Auto) 0.1, Basophils # (Auto) 0.0, Immature Granulocyte # (Auto) 0.4H, Sodium Level 148H, Potassium Level 4.0, Chloride Level 111H, Carbon Dioxide Level 28, Anion Gap 9, Blood Urea Nitrogen 21H, Creatinine 0.58L, Estimat Glomerular Filtration Rate 136, BUN/Creatinine Ratio 36, Glucose Level 96, Calcium Level 8.3L, Phosphorus Level 2.4, Magnesium Level 2.2 08/30/20 11:24: Glucometer 75 Microbiology 08/26/20 Gram Stain - Final, Complete 08/26/20 Sputum Culture - Final, Complete Pseudomonas aeruginosa Usual upper respiratory tristan 08/23/20 Blood Culture - Final, Complete No growth Assessment/Plan Assessment/Plan Assess & Plan/Chief Complaint 1. Acute on Chronic Respiratory Failure--extubated and on BIPAP, family wants to try to decrease BIPAP settings and see how he does then possibly consider comfort care if he does not tolerate BIPAP weaning 2. Chronic Airspace Disease with Superimposed Pneumonia--on abx, CXR about the same 3. Emphysema/COPD/Interstitial Lung Disease--poor prognosis for weaning and family does understand this so have decided against reintubation 5. Hypotensive Shock--off pressors 6. History of PAF--in NSR, blood thinners on hold due to hemoptysis Clinical Quality Measures Admission Status Admission Dx 1. Acute on chronic hypoxic and hypercarbic respiratory failure secondary to underlying emphysema and interstitial lung disease with probably superimposed pneumonia--now sedated on ventilator with IV Vanc and Cefepime, pulmonary/critical care consult 2. Hypotension--on IV fluids and hydrocortisone started due to chronic prednisone use, Mid-line unsuccessful so surgery consulted for central line as may need pressors 3. History of paroxysmal atrial fibrillation--currently in NSR, Xarelto on hold due to hemoptysis 4. Chronic end-stage emphysema--oxygen dependent 5. History of pulmonary hypertensio--on sildenafil. 6. Hemoptysis probably due to pneumonia and xarelto--xarelto/blood thinners on hold I discussed grave prognosis with son due to his extensive underlying lung disease but family would like to at least give him through the weekend to see if there is any improvement AUBREE GALVAN DO Aug 30, 2020 17:19
[2020-08-31] MEDS: RT-ALBUTEROL/IPRATROPIUM 3 ML (DUONEB) VIAL INH SCH ×6 (02:04→20:38)
[2020-08-31] MEDS: DexMEDEtomidine 250 ML DRIP 250 ML IV SCH (02:41)
[2020-08-31] MEDS: morphine INJ 4 MG/ML 1 ML (VIAL/SYRINGE) IVP PRN ×4 (03:08→23:02)
[2020-08-31 04:29] LABS: BASOPHILS % (AUTO) 0 % (0-10); EOSINOPHILS # (AUTO) 0.1 10^3/uL (0.0-0.3); EOSINOPHILS % (AUTO) 1 % (0-10); HEMATOCRIT 31 % (40-54); HEMOGLOBIN 9.7 g/dL (13.3-17.7); LYMPHOCYTES # (AUTO) 0.6 10^3/uL (1.0-4.0); LYMPHOCYTES % (AUTO) 6 % (12-44); MEAN CORPUSCULAR HEMOGLOBIN 31 pg (25-34); MEAN CORPUSCULAR HGB CONC 31 g/dL (32-36); MEAN CORPUSCULAR VOLUME 98 fL (80-99); MEAN PLATELET VOLUME 9.5 fL (9.0-12.2); MONOCYTES # (AUTO) 0.5 10^3/uL (0.0-1.0); MONOCYTES % (AUTO) 5 % (0-12); NEUTROPHILS # (AUTO) 8.3 10^3/uL (1.8-7.8); NEUTROPHILS % (AUTO) 85 % (42-75); PLATELET COUNT 231 10^3/uL (130-400); WHITE BLOOD COUNT 9.8 10^3/uL (4.3-11.0)
[2020-08-31 04:40] LABS: POTASSIUM 3.7 MMOL/L (3.6-5.0)
[2020-08-31 04:41] LABS: CALCIUM 8.4 MG/DL (8.5-10.1)
[2020-08-31 04:45] LABS: PHOSPHORUS 2.5 MG/DL (2.3-4.7)
[2020-08-31 04:46] LABS: CREATININE SERUM 0.57 MG/DL (0.60-1.30)
[2020-08-31 04:48] LABS: MAGNESIUM 2.1 MG/DL (1.6-2.4)
[2020-08-31] MEDS: MAGNESIUM 1 GM/100 ML IVPB 100 ML IV SCH (05:29)
[2020-08-31] MEDS: POTASSIUM CL 10MEQ/50ML IVPB 50 ML IV SCH ×4 (05:29→21:08)
[2020-08-31] MEDS: inSUlin ASPART (NovoLOG) 1 UNIT/0.01 ML (CHARGE PER UNIT) SC SCH ×4 (05:29→20:09)
[2020-08-31] MEDS: KCL 20 MEQ TAB (K-DUR) PO SCH (05:29)
[2020-08-31] MEDS: CEFEPIME INJECTION 1,000 MG in WATER (STERILE) FOR INJECTION 10 ML IV SCH (06:00)
[2020-08-31] MEDS: FUROSEMIDE 40 MG/4 ML INJ (LASIX) IVP SCH (08:18)
[2020-08-31] MEDS: PANTOPRAZOLE 40 MG (PROTONIX) VIAL IV SCH (08:18)
[2020-08-31] MEDS: D5W 1000 ML IV SOLUTION 1,000 ML IV SCH (08:19)
[2020-08-31] MEDS: HYDROCORTISONE 100 MG/2 ML (Solu-CORTEF) VIAL IV SCH ×2 (08:19→20:05)
--- NOTE | 2020-08-31 08:56 | Physical Therapy Evaluation ---
PT Evaluation-General Medical Diagnosis Admission Date Aug 23, 2020 at 16:35 Medical Diagnosis: resp. failure Onset Date: Aug 23, 2020 Therapy Diagnosis Therapy Diagnosis: impaired mobility, strength, endurance Height/Weight Height (Feet): 5 Height (Inches): 11.00 Weight (Pounds): 251 Weight (Ounces): 0.8 Precautions Precautions/Isolations: Aspiration, Fall Prevention, Standard Precautions, Pressure Ulcer Referral Physician: Hang Reason for Referral: Evaluation/Treatment Medical History Pertinent Medical History: Atrial Fib, COPD Additional Medical History Past Medical History Surgeries: Joint Replacement Sleep Apnea, Emphysema Currently Using CPAP: Yes Currently Using BIPAP: No Atrial Fibrillation, Hypertension, Valvular Heart Disease Headaches /Migraines Sexually Transmitted Disease: No HIV/AIDS: No Kidney Stones Gastroesophageal Reflux, Hiatal Hernia Arthritis, Fibromyalgia, Chronic Back Pain Diabetes, Non-Insulin dep Cataract Loss of Vision: Denies Hearing Impairment: Hard of Hearing, Bilateral Hearing Aide Skin Reviewed History: Yes Social History Home: Single Level Current Living Status: Spouse Entry Into Home: Stairs With Railing PT Steps Into Home: 2 Prior Prior Level of Function SCALE: Activities may be completed with or without assistive devices. 3-Quppghjoda-bqnjaus completes the activity by him/herself with no assistance from a helper. 5-Set-up or Clean-up Assistance-helper sets up or cleans up; patient completes activity. [place] assists only prior to or following the activity. 4-Supervision or Touching Assistance-helper provides verbal cues and/or touching/steadying and/or contact guard assistance as patient completes activity. Assistance may be provided throughout the activity or intermittently. 3-Partial/Moderate Assistance-helper does LESS THAN HALF the effort. [place] lifts, holds or supports trunk or limbs, but provides less than half the effort. 2-Substantial/Maximal Assistance-helper does MORE THAN HALF the effort. [place] lifts or holds trunk or limbs and provides more than half the effort. 3-Awrgkhaps-cojyne does ALL the effort. Patient does none of the effort to complete the activity. Or, the assistance of 2 or more helpers is required for the patient to complete the activity. If activity was not attempted, code reason: 7-Patient Refused. 9-Not Applicable-not attempted and the patient did not perform the activity before the current illness, exacerbation or injury. 10-Not Attempted due to Environmental Limitations-(lack of equipment, weather restraints, etc.). 88-Not Attempted due to Medical Conditions or Safety Concerns. Bed Mobility: 6 Transfers (B,C,W/C): 6 Gait: 6 Stairs: 6 Indoor Mobility (Ambulation): Independent Stairs: Independent PT Evaluation-Current Subjective Patient in bed pre tx, agrees to PT, has no complaints of pain. Pt/Family Goals "to get stronger" Objective Patient Orientation: Person, Place, Situation Attachments: Oxygen, Vivas Catheter, IV ROM/Strength ROM Lower Extremities WNL Strength Lower Extremities 2/5 gross BLE Sensory Hearing: Functional Sensation Right Lower Extremit: Intact Sensation Left Lower Extremity: Intact Treatment BLE exercises x10 (AP, QS, HS, SAQ, SLR, hip abd/add, GS), some exercises AAROM. Patient's O2 goes from 93% to 90% with just minimal assist during exercises, patient probably can't handle sitting on the side of the bed yet. Assessment/Needs Patient has impaired mobility, strength, endurance. Patient in bed post tx with nurse call, phone, tray, all needs met. Patient's O2 goes down with minimal activity. Rehab Potential: Guarded PT Director Print Goals Director Print Goals PT [facility] Goals Time Frame: Sep 07, 2020 Roll Left & Right (QC): 3 Sit to Lying (QC): 3 Lying-Sitting on Side/Bed(QC): 3 Sit to Stand (QC): 3 Chair/Ivh-mp-Roqzp Xfer(QC): 3 PT Plan Problem List Problem List: Activity Tolerance, Functional Strength, Safety, Balance, Gait, Transfer, Bed Mobility, ROM Treatment/Plan Treatment Plan: Continue Plan of Care Treatment Plan: Bed Mobility, Education, Functional Activity Soren, Functional Strength, Gait, Safety, Therapeutic Exercise, Transfers Treatment Duration: Sep 07, 2020 Frequency: 6 times per week Estimated Hrs Per Day: .25 hour per day Patient and/or Family Agrees t: Yes Safety Risks/Education Patient Education: Correct Positioning, Safety Issues Teaching Recipient: Patient Teaching Methods: Demonstration, Discussion Response to Teaching: Reinforcement Needed Discharge Recommendations Plan Patient will perform bed mobility and transfer training, balance and endurance training, functional strengthening, gait training, and education, to improve functional mobility and independence at home. Therapy Discharge Recommendati: 24 Hour Supervision, Post Acute PT Time/GCodes Time In: 0814 Time Out: 823 Total Billed Treatment Time: 10 Total Billed Treatment 1 visit JODI SALOMON PT Aug 31, 2020 08:56
[2020-08-31] MEDS: ENOXAPARIN 40 MG/0.4 ML (LOVENOX) SYR SC SCH (09:30)
--- NOTE | 2020-08-31 10:04 | Tele-ICU Progress Note ---
Subjective Date Seen by a Provider: Aug 31, 2020 Time Seen by a Provider: 10:04 Sepsis Event Evaluation Height, Weight, BMI Height: 5'11.00" Weight: 251lbs. 0.8oz. [id number]; 30.77 BMI Method:Stated Exam Exam Patient acknowledged, consented, and participated in this virtual visit which was conducted using real time audio/video Vital Signs Date Time Temp Pulse Resp B/P (MAP) Pulse Ox O2 Delivery O2 Flow Rate FiO2 08/31/20 09:00 71 19 Vapotherm 40.00 70.00 08/31/20 08:03 36.4 08/31/20 08:00 62 27 93 Vapotherm 40.00 70.00 08/31/20 07:11 92 Vapotherm 40.00 70 08/31/20 07:00 60 08/31/20 07:00 62 22 92 Vapotherm 40.00 65.00 08/31/20 06:00 59 20 91 Vapotherm 40.00 65.00 08/31/20 05:00 59 12 93 Vapotherm 40.00 65.00 08/31/20 04:18 36.0 08/31/20 04:00 Vapotherm 40.00 65 08/31/20 04:00 61 13 92 Vapotherm 40.00 65.00 08/31/20 03:00 64 29 94 Vapotherm 40.00 65.00 08/31/20 02:41 67 159/68 08/31/20 02:04 95 Vapotherm 40.00 70 08/31/20 02:00 65 44 90 Vapotherm 40.00 65.00 08/31/20 01:12 71 08/31/20 01:00 67 14 90 Vapotherm 40.00 65.00 08/31/20 00:00 60 14 92 Vapotherm 40.00 65.00 08/31/20 00:00 Vapotherm 40.00 65 08/30/20 23:54 36.2 08/30/20 23:00 79 30 90 Vapotherm 40.00 65.00 08/30/20 22:00 65 28 96 Vapotherm 40.00 65.00 08/30/20 22:00 Vapotherm 40.00 65.00 08/30/20 21:30 Vapotherm 40.00 70 08/30/20 21:12 Vapotherm 40.00 70.00 08/30/20 21:00 67 24 99 Vapotherm 40.00 80.00 08/30/20 20:32 36.0 08/30/20 20:00 Vapotherm 40.00 80 08/30/20 20:00 56 17 96 Vapotherm 40.00 80.00 08/30/20 19:18 Vapotherm 40.00 80.00 08/30/20 19:00 60 28 90 Vapotherm 40.00 60.00 08/30/20 19:00 62 08/30/20 18:43 Vapotherm 40.00 60.00 08/30/20 18:32 Vapotherm 40.00 60 08/30/20 18:00 75 26 95 NIV Bilevel 50.00 08/30/20 17:00 67 38 96 NIV Bilevel 50.00 08/30/20 16:56 36.4 08/30/20 16:00 68 24 94 NIV Bilevel 50.00 08/30/20 15:14 NIV Bilevel 50 08/30/20 15:00 76 45 92 NIV Bilevel 50.00 08/30/20 14:00 79 20 93 NIV Bilevel 50.00 08/30/20 13:56 75 174/73 08/30/20 13:13 NIV Bilevel 50.00 08/30/20 13:11 75 40 95 50.00 08/30/20 13:00 75 96 NIV Bilevel 60.00 08/30/20 12:33 75 08/30/20 12:00 86 96 NIV Bilevel 60.00 08/30/20 11:35 36.8 08/30/20 11:08 NIV Bilevel 60 08/30/20 11:00 82 48 96 NIV Bilevel 60.00 08/30/20 10:07 73 30 97 60.00 I & O 08/31/20 07:00 Intake Total 540 ml Output Total 4725 ml Balance -4185 ml Height & Weight Height: 5'11.00" Weight: 251lbs. 0.8oz. 112.442233az; 30.77 BMI Method:Stated General Appearance: Other (on BiPAP) HEENT: Normal ENT Inspection, Other (serosanguinous fluid in tube) Neck: Full Range of Motion Respiratory: Decreased Breath Sounds Cardiovascular: Regular Rate, Rhythm, Systolic Murmur Capillary Refill: Less Than 3 Seconds Gastrointestinal: normal bowel sounds, soft Extremity: Non Tender, No Calf Tenderness, No Pedal Edema Neurologic/Psychiatric: Alert, Oriented x3 Skin: Warm/Dry Results Lab Laboratory Tests 08/30/20 04:20 08/31/20 04:10 Assessment/Plan Assessment/Plan (Tele-ICU Physician , Progress Note ) Available chart/ vitals / labs / Images reviewed Video assessment done using teleICU camera, rest of exam as per RN Discussed with RN Events overnight : Afebrile hemodynamically stable, no pressors, I/O = NOT CORRECT Drips: ns 150 propofol , precedex As per RN exam : sedated , follow commands last night Consultants: Hospital course: 08/23 WITH SOB AND HEMOPTYSIS AND HYPOXIC ON CHRONIC 6L o2- > bipap 24/07 50% 08/24 intubated - 500, FiO2 40%, respiratory rate 25 and a PEEP of 8. 08/27 - AC 25 - 500 - 35 % FiO2 with a PEEP of 8 pap 35 08/28- fio2 80 % with cough 08/29 - extubated 08/30 -on Bipap 22/11 rr 38 60% 08/31 VAPOTHERM 40 l 70 % A/P Acute on chronic resp failure- hypoxic and hypercarbic respiratory failure secondary to underlying emphysema, ILD and possibly superimposed pneumonia - extubated 08/30, on BIPAP today 10 rr 38 60% PER DISCUSSION WITH SON ( MD - ophtalmology )- patient and family are interested to see if can decrease NIPPV support , patient does not want to be re- intubated - DNI / DNR -will keep on precedex PRN , try decrease NIPPV support with possible vapothem breaks/ PRN NIPPV - PER RN - PATIENT DOES NOT WANTS BIPAP TOO - CONT DIURESIS with PULM HTN , CHANGE FROM LASIX TO DIAMOX 08/31 WITH RISING BCARRB PNA - sputum + for PSA - stop vanco ( 5d ) TODAY LAST DAY OF cefepime 08/30 - covis swab (-)ve shock - off levo - stress dose steroids SC 50 q 12 08/24 - decrease slowly ( on chronic prednisone ) COPD - last CT chest 06/2020 with severe emphysematous changes upper lobes , chronic plural scarring , some fibrotic changes - on chronic prednisone Severe pulm HTN , most likely due to lung DZ , RVSP 65mm Hg by ECHO - on sildenafil on hold now , monitor volume status carefully , STOP IVF Hemoptysis - due to combination of infection and coagulopathy in face of pHTN - monitor - minimal now - will start proph lovenox Anemia stable ECHO 12/2019 - EF 55%, PAF , s/p ablation/ cardioversion - sinus now - on AC with Xarelto , and with INR 1.9 on admission - on hold - lovenox sc propf started 08/27 - RESUMING AC PER CARDS DM - ISS , as per PCP Rising NA , npo - ON DIURESIS low glucose and high NA - start d5w NEEDS SWALLOW EVAL , PT AND NUTRITION ADRESSED TODAY Lines R IJ : , (Central Line Necessity Reviewed) Vivas: + OG: + Nutrition: TF Analgesia: NA Anxiety/ delirium VTE Prophylaxis: starting 08/27 Stress Ulcer Prophylaxis: ppi Glycemic Control: + Plans in collaboration with bedside consultants and IM MDs. Discussed with RN to reach out if any questions or concerns A total of 36 minutes of critical care time was devoted to this patient today, required to treat and/or prevent further deterioration of critical care condition ( as above ) . CASSIA WEST MD Aug 31, 2020 10:04
--- NOTE | 2020-08-31 10:45 | Diagnostic Imaging Report ---
INDICATION: Respiratory failure COMPARISON: 08/29/2020 FINDINGS: Extensive 5 lobe infiltrates showed no substantial change from prior. Lung volumes symmetric with no adverse development post extubation. A right IJ at the cavoatrial junction stable. Sternal wires appeared intact. IMPRESSION: Severe 5 lobe lung disease stable. No substantial adverse change post extubation. Dictated by: Dictated on workstation # [id number]
--- NOTE | 2020-08-31 12:51 | ST Dysphagia Evaluation ---
Speech Evaluation-General Medical Diagnosis resp. failure Onset Date: Aug 23, 2020 Therapy Diagnosis Therapy Diagnosis: Oropharyngeal Dysphagia Precautions Precautions: Aspiration Precautions/Isolations: Aspiration Referral Referring Physician: Dr. Mauricio Medical History Pertinent Medical History: Atrial Fib, COPD Reviewed History: Yes Social History Current Living Status: Spouse Speech PLF/Current-Dysphagia Prior Level of Function Patient lives in the home with his where he is assisted with daily tasks as needed. Subjective Patient was pleasant and cooperative with the Bedside Dysphagia Evaluation. Cognitive Status Patient Orientation: Person, Place, Situation Oral Motor Skills Dentition: Natural, Tumbled, Stained Ability to Follow Directions: Good Patient was NPO pending BDE Oral Expression Ability: No Impairment Voice Voice Phonatory-Based Quality: Hoarse, Weak Voice Pitch: Normal Voice Loudness: Mildly Soft/Quiet Face Facial Symmetry: Symmetrical Oral-Facial Assessment Oral-Facial Dentition: Normal Labial Seal Description: Weak Lingual Protrusion: Normal Lingual ROM: Normal Lingual Strength: Normal Dysphagia Evaluation Dietary Recommendations: Mechanical Soft Liquid Recommendations: [place] Consistancy Swallowing Precautions: Alternate Liquids/Solids, Double Swallow, Decreased Bolus 1/2 Tsp, Liquids from Straw, Liquids from Spoon, Small Bites and Sips, Sitting Upright 90 Degrees, Sitting 90 Degrees 30 Post Intake Dysphagia Evaluation Summary Patient was referred for a Bedside Dysphagia Evaluation per Dr. Mauricio following extubation. Patient was admitted to the ICU via ED on 08/24/2020 due to exacerbation of COPD. Patient was intubated at that time and extubated on 08/29/2020. Patient completed the BDE with his and grandson present. He was presented 1/2 tsp of thin liquid without difficulty. Patient was instructed to take a small sip of thin liquid via straw which resulted in coughing up a significant amount of brown, thick phlegm. Patient cleared and was presented a small sip of nectar consistency liquid without difficulty. Patient was also presented 1/2 tsp of puree and mechanical soft without difficulty. Patient was not presented with regular texture due to being weak and unable to masticate safely at this time. Patient is recommended for Dysphagia II diet level with nectar consistency liquids. This information was provided to his nurse. ST will follow up on Thursday with ongoing diet level assessment at that time. Barriers to Learning Patient's recent medical decline, age Speech Short Term Goals Short Term Goals Short Term Goals 1) Patient will tolerate least restrictive diet level without s/s of aspiration at 90% or greater. 2) Patient/caregiver will utilize compensatory strategies as trained for safe oral intake at 90% or greater. Speech Lokie Driver Goals Usp Goals Patient will maintain adequate nutrition/hydration via safe effective swallow function. Speech-Plan Patient/Family Goals Patient/Family Goals: Patient plans on returning to his home where he lives with his . Treatment Plan Speech Therapy Treatment Plan: Continue Plan of Care Treatment Duration: Sep 07, 2020 Frequency: 3 times per week Estimated Hrs Per Day: .25 hour per day Rehab Potential: Guarded Barriers to Learning: Patient's recent medical decline, age Pt/Family Agrees to Plan: Yes Safety Risks/Education Teaching Recipient: Patient, Family, Significant Other Teaching Methods: Discussion Response to Teaching: Verbalize Understanding Education Topics Provided: Diet level, safety strategies for oral intake Time Speech Therapy Time In: 11:30 Speech Therapy Time Out: 11:45 Total Billed Time: 15 Billed Treatment Time 1, DYSEVS, DYST LORRAINE Chavarria Aug 31, 2020 12:51
--- NOTE | 2020-08-31 13:55 | Occupational Therapy Eval ---
OT Evaluation-General/PLF Medical Diagnosis Admission Date Aug 23, 2020 at 16:35 Medical Diagnosis: resp. failure Onset Date: Aug 23, 2020 Therapy Diagnosis Therapy Diagnosis: Decreased ADL status Height/Weight Height (Feet): 5 Height (Inches): 11.00 Weight (Pounds): 251 Weight (Ounces): 0.8 Precautions Precautions/Isolations: Aspiration Referral Physician: Hang Referral Reason: Activity Tolerance, Self Care, Evaluation/Treatment, Strengthening/ROM Medical History Pertinent Medical History: Atrial Fib, COPD Current History admits to ER with 10 L of 02 but hypoxic-- acute chronic resp failure with bilateral pna Reviewed History: Yes Social History Home: Single Level Current Living Status: Spouse Entry Into Home: Stairs With Railing Steps Into Home: 2 ADL-Prior Level of Function SCALE: Activities may be completed with or without assistive devices. 1-Hrnudnvtnq-jtbeili completes the activity by him/herself with no assistance from a helper. 5-Set-up or Clean-up Assistance-helper sets up or cleans up; patient completes activity. [place] assists only prior to or following the activity. 4-Supervision or Touching Assistance-helper provides verbal cues and/or touching/steadying and/or contact guard assistance as patient completes activity. Assistance may be provided throughout the activity or intermittently. 3-Partial/Moderate Assistance-helper does LESS THAN HALF the effort. [place] lifts, holds or supports trunk or limbs, but provides less than half the effort. 2-Substantial/Maximal Assistance-helper does MORE THAN HALF the effort. [place] lifts or holds trunk or limbs and provides more than half the effort. 4-Ryvjhcjwj-qtllig does ALL the effort. Patient does none of the effort to complete the activity. Or, the assistance of 2 or more helpers is required for the patient to complete the activity. If activity was not attempted, code reason: 7-Patient Refused. 9-Not Applicable-not attempted and the patient did not perform the activity before the current illness, exacerbation or injury. 10-Not Attempted due to Environmental Limitations-(lack of equipment, weather restraints, etc.). 88-Not Attempted due to Medical Conditions or Safety Concerns. ADL PLOF Comments IND withotu AD. Self Care: Independent Functional Cognition: Independent DME/Equipment: Bath Chair, Shower Occupation: retired [address] Self: Yes OT Current Status Subjective Pt AxO, denies pain at this time. Pt's and son present during most of session. Pt agrees to tx. Good vocals, requires increased volume from therapist 2* high flow 02. Mental Status/Objective Patient Orientation: Person, Place, Situation Attachments: Oxygen, Telemetry Current Glasses/Contacts: No Hearing Aids: No Dentures/Partials: No Hand Dominance: Right Upper Extremity ROM Decreased BUE Upper Extremity Coordination Decreased 2* weakness. Upper Extremity Sensation WFL BUE Upper Extremity Strength Decreased BUE (3-_ ADL-Treatment Eating (QC): 2 (max A bringing hand to mouth and securing R hand to cup) Oral Hygiene (QC): 2 (based on clincial judgment) Shower/Bathe Self (QC): 1 (based on clincial judgment) On/Off Footwear (QC): 1 (based on clincial judgment) Other Treatments Pt educated on OT role. Pt able to provide most hx with accuracy, corrects minimally,. Pt in bed, present through whole session. Pt's R/L mobile sales consultant decreased though able to oppose RUE. Pt's wrist ROM WFL, though weak. Ranged to touch face with B elbows. Pt then ranged to full range shoulders in flexion/ scaption/ abduction. educated on completing shoulder flexion/ abduction to 90* ~3x daily and encourage hold in position x5 reps each. Pt is assisted with water drinking. Pt denies issues/ pain, OT address questions of family. Encouraged proper position in bed, with seated position rather than supine. Pt and agrees, all needs met, call light in reach. Education OT Patient Education: Correct positioning, Exercise program, Home exercise program, Instructions to caregiver, Modified ADL techniques, Purpose of tx/functional activities, Safety issues Teaching Recipient: Patient Teaching Methods: Demonstration, Discussion Response to Teaching: Verbalize Understanding, Return Demonstration, Reinforcement Needed OT Drum Reel Cutter Goals Drum Reel Cutter Goals Time Frame: Sep 07, 2020 Eating (QC): 4 Oral Hygiene (QC): 4 Toileting Hygiene (QC): 2 Shower/Bathe Self (QC): 2 Upper Body Dressing (QC): 3 Lower Body Dressing (QC): 2 On/Off Footwear (QC): 2 Additional Goals: 1-Demonstrate ADL Tasks, 2-Verbalize Understanding, 3- ImproveStrength/Soren 1=Demonstrate adherence to instructed precautions during ADL tasks. 2=Patient will verbalize/demonstrate understanding of assistive devices/modifications for ADL. 3=Patient will improve strength/tolerance for activity to enable patient to perform ADL's. OT Education/Plan Problem List/Assessment Assessment: Decreased Activ Tolerance, Decreased UE Strength, Dependent Transfers, Impaired Bed Mobility, Impaired Cognition, Impaired Coordination, Impaired Funct Balance, Impaired I ADL's, Impaired Self-Care Skills, Restricted Funct UE ROM Discharge Recommendations Plan/Recommendations: Continue POC Therapy Discharge Recommendati: 24 Hour Supervision, Post Acute OT Treatment Plan/Plan of Care Treatment,Training & Education: Yes Patient would benefit from OT for education, treatment and training to promote independence in ADL's, mobility, safety and/or upper extremity function for ADL's. Plan of Care: ADL Retraining, Caregiver Training, Functional Mobility, Orthotic Fitting/Training, UE Funct Exercise/Act, UE Neuromus Re-Ed/Coord, W/C Management Training Treatment Duration: Sep 07, 2020 Frequency: 5 times per week Estimated Hrs Per Day: .25 hour per day Agreement: Yes Rehab Potential: Guarded Time/GCodes Start Time: 13:15 Stop Time: 13:35 Total Time Billed (hr/min): 20 Billed Treatment Time 1, ERNSTM (20) KHANG CAREY OTR Aug 31, 2020 13:55
[2020-08-31] MEDS ORDERED: ADENOSINE 6 MG/2 ML (ADENOCARD) VIAL IV ONE ×4 (17:21→17:30)
[2020-08-31] MEDS ORDERED: DIGOXIN 0.25 MG/ML (LANOXIN) 2 ML AMP ONE (17:22)
[2020-08-31] MEDS ORDERED: DIGOXIN 0.25 MG/ML (LANOXIN) 2 ML AMP IV NR (17:30)
--- NOTE | 2020-08-31 17:32 | Tele-ICU Progress Note ---
Progress Note Called by RN: patient is in A. fib- HR >200 ( went to afib while asleep hypotensive no CP , AAO responded to ademosin 6 mg - sinus Bp improved dig 0.5 given IV resumed home reate control meds , since just passes swallow eval Bedside physicians on case to be updated by bedside RN. Future plans depend on the clinical course and tests results, and as delineated by bedside physicians. Discussed with RN to reach out if any questions or concerns. ( CCT 15 min ) Focused Exam Height, Weight, BMI Height: 5'11.00" Weight: 251lbs. 0.8oz. 112.905146mm; 30.77 BMI Method:Stated CASSIA WEST MD Aug 31, 2020 17:32
--- NOTE | 2020-08-31 17:51 | Progress Note ---
Subjective Subjective Date Seen by Provider: Aug 31, 2020 Time Seen by Provider: 16:45 Patient has went from BiPap to vapotherm today. He is eating food/drink. Recognized his grandson, granddaughter. He denies any pain. Review of Systems General: No Chills, No Night Sweats; Fatigue, Malaise HEENT: No Head Aches Pulmonary: Dyspnea, Cough, Pleuritic Chest Pain Cardiovascular: No: Chest Pain, Palpitations Gastrointestinal: No: Nausea, Vomiting Genitourinary: No Dysuria Musculoskeletal: No: other Neurological: Weakness All Other Systems Reviewed All Other Systems Reviewed: Yes Objective Exam Vital Signs Vital Signs Date Time Temp Pulse Resp B/P (MAP) Pulse Ox O2 Delivery O2 Flow Rate FiO2 08/31/20 17:00 85 28 99 Vapotherm 40.00 90.00 08/31/20 16:00 94 28 90 Vapotherm 40.00 90.00 08/31/20 15:54 37.0 08/31/20 15:31 Vapotherm 40.00 90 08/31/20 15:00 93 21 96 Vapotherm 40.00 90.00 08/31/20 14:47 92 Vapotherm 40.00 90 08/31/20 14:00 91 34 97 Vapotherm 40.00 90.00 08/31/20 13:00 104 38 92 Vapotherm 40.00 90.00 08/31/20 13:00 89 08/31/20 12:57 36.4 08/31/20 12:00 97 26 91 Vapotherm 40.00 90.00 08/31/20 11:06 Vapotherm 40.00 70 08/31/20 11:00 Vapotherm 40.00 90.00 08/31/20 11:00 80 26 96 Vapotherm 40.00 90.00 08/31/20 10:44 90 Vapotherm 40.00 90 08/31/20 10:00 73 28 88 Vapotherm 40.00 70.00 08/31/20 09:00 71 19 Vapotherm 40.00 70.00 08/31/20 08:03 36.4 08/31/20 08:00 Vapotherm 40.00 70 08/31/20 08:00 62 27 93 Vapotherm 40.00 70.00 08/31/20 07:11 92 Vapotherm 40.00 70 08/31/20 07:00 60 08/31/20 07:00 62 22 92 Vapotherm 40.00 65.00 08/31/20 06:00 59 20 91 Vapotherm 40.00 65.00 08/31/20 05:00 59 12 93 Vapotherm 40.00 65.00 08/31/20 04:18 36.0 08/31/20 04:00 Vapotherm 40.00 65 08/31/20 04:00 61 13 92 Vapotherm 40.00 65.00 08/31/20 03:00 64 29 94 Vapotherm 40.00 65.00 08/31/20 02:41 67 159/68 08/31/20 02:04 95 Vapotherm 40.00 70 08/31/20 02:00 65 44 90 Vapotherm 40.00 65.00 08/31/20 01:12 71 08/31/20 01:00 67 14 90 Vapotherm 40.00 65.00 08/31/20 00:00 60 14 92 Vapotherm 40.00 65.00 08/31/20 00:00 Vapotherm 40.00 65 08/30/20 23:54 36.2 08/30/20 23:00 79 30 90 Vapotherm 40.00 65.00 08/30/20 22:00 65 28 96 Vapotherm 40.00 65.00 08/30/20 22:00 Vapotherm 40.00 65.00 08/30/20 21:30 Vapotherm 40.00 70 08/30/20 21:12 Vapotherm 40.00 70.00 08/30/20 21:00 67 24 99 Vapotherm 40.00 80.00 08/30/20 20:32 36.0 08/30/20 20:00 Vapotherm 40.00 80 08/30/20 20:00 56 17 96 Vapotherm 40.00 80.00 08/30/20 19:18 Vapotherm 40.00 80.00 08/30/20 19:00 60 28 90 Vapotherm 40.00 60.00 08/30/20 19:00 62 08/30/20 18:43 Vapotherm 40.00 60.00 08/30/20 18:32 Vapotherm 40.00 60 08/30/20 18:00 75 26 95 NIV Bilevel 50.00 I & O 08/31/20 07:00 Intake Total 540 ml Output Total 4725 ml Balance -4185 ml General Appearance: No Apparent Distress, Other (on BiPAP) Eyes: Bilateral Eye PERRL, Bilateral Eye EOMI HEENT: Normal ENT Inspection, Other (serosanguinous fluid in tube) Neck: Full Range of Motion Respiratory: Decreased Breath Sounds Cardiovascular: Regular Rate, Rhythm, Systolic Murmur Gastrointestinal: Normal Bowel Sounds Extremity: Non Tender, No Calf Tenderness, No Pedal Edema Neurologic/Psychiatric: Alert, Oriented x3 Skin: Warm/Dry Results Lab Laboratory Tests 08/30/20 18:29: Glucometer 112H 08/30/20 23:06: Glucometer 113H 08/31/20 04:10: White Blood Count 9.8, Red Blood Count 3.18L, Hemoglobin 9.7L, Hematocrit 31L, Mean Corpuscular Volume 98, Mean Corpuscular Hemoglobin 31, Mean Corpuscular Hemoglobin Concent 31L, Red Cell Distribution Width 15.7H, Platelet Count 231, Mean Platelet Volume 9.5, Immature Granulocyte % (Auto) 3, Neutrophils (%) (Auto) 85H, Lymphocytes (%) (Auto) 6L, Monocytes (%) (Auto) 5, Eosinophils (%) (Auto) 1, Basophils (%) (Auto) 0, Neutrophils # (Auto) 8.3H, Lymphocytes # (Auto) 0.6L, Monocytes # (Auto) 0.5, Eosinophils # (Auto) 0.1, Basophils # (Auto) 0.0, Immature Granulocyte # (Auto) 0.3H, Sodium Level 145, Potassium Level 3.7, Chloride Level 104, Carbon Dioxide Level 33H, Anion Gap 8, Blood Urea Nitrogen 21H, Creatinine 0.57L, Estimat Glomerular Filtration Rate 138, BUN /Creatinine Ratio 37, Glucose Level 129H, Calcium Level 8.4L, Phosphorus Level 2.5, Magnesium Level 2.1 08/31/20 12:22: Glucometer 103 08/31/20 15:16: Glucometer 90 Microbiology 08/26/20 Gram Stain - Final, Complete 08/26/20 Sputum Culture - Final, Complete Pseudomonas aeruginosa Usual upper respiratory tristan 08/23/20 Blood Culture - Final, Complete No growth Assessment/Plan Assessment/Plan Assessment and Plan Acute on Chronic Respiratory Failure--extubated and on BIPAP but transitioned to 08/31/20 Chronic Airspace Disease with Superimposed Pneumonia--on abx Emphysema/COPD/Interstitial Lung Disease--do not reintubate Hypotensive Shock--off pressors History of PAF--in NSR, blood thinners on hold due to hemoptysis hypernatremia- improving with IVF D5. elevated bicarb- switched lasix to diamox 08/31/20- Dispo: improving- appreciate eICU recs. Problems: (1) COPD exacerbation (2) Acute and chronic respiratory failure with hypoxia (3) Paroxysmal atrial fibrillation (4) Steroid-dependent COPD (5) Hypernatremia JOSE COATES MD Aug 31, 2020 17:51
[2020-08-31] MEDS ORDERED: CALCIUM CHLORIDE 1 GM/10 ML (IMS) SYR ONE (18:06)
[2020-08-31] MEDS ORDERED: AMIODARONE 450 MG/9 ML (CORDARONE) VIAL IV ONE (18:14)
[2020-08-31] MEDS ORDERED: AMIODARONE (BOLUS) 150 MG/3 ML IV ONE (18:14)
[2020-08-31] MEDS ORDERED: CALCIUM CHLORIDE 1 GM/10 ML (IMS) SYR INJ ONE (18:15)
[2020-08-31] MEDS ORDERED: CALCIUM GLUCONATE 10% INJ 4.65 MEQ in NS (IVPB) 50 ML IV ONE (18:15)
[2020-08-31] MEDS ORDERED: ADENOSINE 6 MG/2 ML (ADENOCARD) VIAL IV NR (18:15)
[2020-08-31] MEDS ORDERED: D5W IV SOLUTION (EXCEL) 250 ML IV ONE (18:16)
[2020-08-31] MEDS: AMIODARONE INJECTION 450 MG in D5W IV SOLUTION (EXCEL) 250 ML IV SCH (18:26)
[2020-08-31] MEDS ORDERED: AMIODARONE FOR BOLUS 150 MG in D5W 100 ML IVPB 100 ML IV NR (18:30)
[2020-08-31 18:33] LABS: POTASSIUM 3.2 MMOL/L (3.6-5.0)
[2020-08-31 18:35] LABS: CALCIUM 10.6 MG/DL (8.5-10.1)
[2020-08-31 18:39] LABS: CREATININE SERUM 0.64 MG/DL (0.60-1.30)
[2020-08-31 18:41] LABS: MAGNESIUM 2.1 MG/DL (1.6-2.4)
[2020-08-31] MEDS: DRONEDARONE TABLET 400 MG TABLET PO SCH (20:05)
[2020-08-31] MEDS ORDERED: aCETylcysteine 20% (MUCOMYST) 30ML SOLN VIAL ONE (20:42)
[2020-08-31] MEDS: aCETylcysteine 20% (MUCOMYST) 30ML SOLN VIAL INH PRN (20:49)
[2020-09-01] MEDS: RT-ALBUTEROL/IPRATROPIUM 3 ML (DUONEB) VIAL INH SCH ×6 (01:18→22:03)
[2020-09-01] MEDS: AMIODARONE INJECTION 450 MG in D5W IV SOLUTION (EXCEL) 250 ML IV SCH ×2 (02:17→18:48)
[2020-09-01 02:18] VITALS: BP 160/66
[2020-09-01] MEDS: D5W 1000 ML IV SOLUTION 1,000 ML IV SCH (04:23)
[2020-09-01 04:35] LABS: BASOPHILS # (AUTO) 0.1 10^3/uL (0.0-0.1); BASOPHILS % (AUTO) 0 % (0-10); EOSINOPHILS # (AUTO) 0.2 10^3/uL (0.0-0.3); EOSINOPHILS % (AUTO) 1 % (0-10); HEMATOCRIT 35 % (40-54); HEMOGLOBIN 10.9 g/dL (13.3-17.7); LYMPHOCYTES # (AUTO) 0.9 10^3/uL (1.0-4.0); LYMPHOCYTES % (AUTO) 7 % (12-44); MEAN CORPUSCULAR HEMOGLOBIN 30 pg (25-34); MEAN CORPUSCULAR HGB CONC 31 g/dL (32-36); MEAN CORPUSCULAR VOLUME 97 fL (80-99); MEAN PLATELET VOLUME 9.7 fL (9.0-12.2); MONOCYTES % (AUTO) 7 % (0-12); NEUTROPHILS # (AUTO) 11.9 10^3/uL (1.8-7.8); NEUTROPHILS % (AUTO) 83 % (42-75); PLATELET COUNT 261 10^3/uL (130-400); WHITE BLOOD COUNT 14.3 10^3/uL (4.3-11.0)
[2020-09-01 04:42] LABS: POTASSIUM 3.4 MMOL/L (3.6-5.0)
[2020-09-01 04:43] LABS: CALCIUM 8.8 MG/DL (8.5-10.1)
[2020-09-01 04:48] LABS: CREATININE SERUM 0.69 MG/DL (0.60-1.30); PHOSPHORUS 2.5 MG/DL (2.3-4.7)
[2020-09-01] MEDS: POTASSIUM CL 10MEQ/50ML IVPB 50 ML IV SCH (05:54)
[2020-09-01] MEDS: MAGNESIUM 1 GM/100 ML IVPB 100 ML IV SCH (05:54)
[2020-09-01] MEDS: KCL 20 MEQ TAB (K-DUR) PO SCH (05:55)
[2020-09-01] MEDS: inSUlin ASPART (NovoLOG) 1 UNIT/0.01 ML (CHARGE PER UNIT) SC SCH ×3 (05:56→17:08)
[2020-09-01] MEDS: aCETylcysteine 20% (MUCOMYST) 30ML SOLN VIAL INH PRN (06:44)
[2020-09-01 06:53] VITALS: BP 133/127
[2020-09-01] MEDS ORDERED: KCL 20 MEQ TAB (K-DUR) PO ONE (09:00)
[2020-09-01] MEDS ORDERED: WATER (STERILE) FOR INJECTION 0 ML ONE (10:33)
[2020-09-01] MEDS: PANTOPRAZOLE 40 MG (PROTONIX) VIAL IV SCH (10:42)
[2020-09-01] MEDS: DIGOXIN 0.125 MG (LANOXIN) TAB PO SCH (10:42)
[2020-09-01] MEDS: HYDROCORTISONE 100 MG/2 ML (Solu-CORTEF) VIAL IV SCH ×2 (10:42→20:13)
[2020-09-01] MEDS: DRONEDARONE TABLET 400 MG TABLET PO SCH ×2 (10:43→20:13)
[2020-09-01] MEDS: acetaZOLAMIDE INJ 500 MG/5 ML (DIAMOX) VIAL IV SCH (11:14)
--- NOTE | 2020-09-01 11:43 | Tele-ICU Progress Note ---
Subjective Date Seen by a Provider: Sep 01, 2020 Time Seen by a Provider: 11:00 Subjective/Events-last exam Date Seen by a Provider: Sep 01, 2020 Time Seen by a Provider: 11:00 Subjective/Events-last exam Patient acknowledged, consented, and participated in this virtual visit which was conducted using real time audio/video. Thank you for asking us to see this patient for respiratory insufficiency and distress. HPC: Recent events: Did well overnight w BiPAP PMH: ILD on home O2 10 LPM. SH: smoking history pos FH: Non-contributory PE: Restiing comfortably. VSS HR 95 nsr BP 150/80 RR 24 O2 sat 95% on NC HEENT: No obvious masses, adenopathy or JVD. Chest: clear to auscultation. CV: RRR S1 S2 No murmur or added sounds. Abd: Non-tender. Bowel sounds . : Unremarkable. Vivas . VETERINARY PARASITOLOGIST/psychiatric: Alert and oriented, grossly intact. No obvious focal findings. Extremities: edema. Capillary refill < 3 seconds. Skin: unremarkable. Results: Elevated . Decreased . A/P: Respiratory insufficiency/distress: Doing better Available chart/ vitals / labs / Images reviewed. Video assessment done using teleICU camera, rest of exam as per RN. Respiratory: Continue present management with NC/BiPAP Monitor for increasing oxygenation needs and/or need for intubation.. Critical Care: critically ill patient. Discussed with LORENE Rose. Asked RN to reach out to eICU if any questions or concerns later. Time spent with patient/coordination of care with other health professionals (mins): 15 Sepsis Event Evaluation Sepsis Stage: Ruled Out Height, Weight, BMI Height: 5'11.00" Weight: 251lbs. 0.8oz. 112.756918kr; 30.77 BMI Method:Stated Focused Exam Sepsis Stage: Ruled Out Exam Exam Patient acknowledged, consented, and participated in this virtual visit which was conducted using real time audio/video Vital Signs Date Time Temp Pulse Resp B/P (MAP) Pulse Ox O2 Delivery O2 Flow Rate FiO2 09/01/20 11:00 89 35 173/115 (134) 94 NIV Bilevel 80.00 09/01/20 10:49 97 Vapotherm 40.00 100 09/01/20 10:00 122 29 139/76 (97) 91 NIV Bilevel 80.00 09/01/20 09:00 84 23 145/75 (98) 89 NIV Bilevel 80.00 09/01/20 08:08 36.8 09/01/20 08:00 78 29 156/97 (116) 97 NIV Bilevel 80.00 09/01/20 07:00 78 09/01/20 07:00 79 20 143/98 (113) 95 NIV Bilevel 80.00 Arterial Line 09/01/20 06:53 80 21 94 80.00 09/01/20 06:44 83 Vapotherm 40.00 100 09/01/20 06:00 80 16 96 NIV Bilevel 80.00 09/01/20 05:00 81 15 96 NIV Bilevel 80.00 09/01/20 04:00 NIV Bilevel 80 09/01/20 04:00 82 30 97 NIV Bilevel 80.00 09/01/20 03:00 89 31 96 NIV Bilevel 80.00 09/01/20 02:30 NIV Bilevel 80.00 09/01/20 02:18 77 28 95 90.00 09/01/20 02:17 NIV Bilevel 90.00 09/01/20 02:10 NIV Bilevel 100.00 09/01/20 02:00 103 30 55 Vapotherm 40.00 100.00 09/01/20 01:59 100 Vapotherm 40.00 09/01/20 01:19 100 Vapotherm 40.00 09/01/20 01:00 84 17 92 Vapotherm 40.00 100.00 09/01/20 01:00 88 09/01/20 00:00 88 24 92 Vapotherm 40.00 100.00 09/01/20 00:00 Vapotherm 40.00 100 08/31/20 23:33 36.8 08/31/20 23:00 86 29 94 Vapotherm 40.00 100.00 08/31/20 22:00 92 35 91 Vapotherm 40.00 100.00 08/31/20 21:00 112 37 89 Vapotherm 40.00 100.00 08/31/20 20:38 90 Vapotherm 40.00 100 08/31/20 20:04 Vapotherm 40.00 100.00 08/31/20 20:00 89 22 85 Vapotherm 40.00 90.00 08/31/20 20:00 Vapotherm 40.00 100 08/31/20 19:41 36.8 08/31/20 19:00 93 25 94 Vapotherm 40.00 90.00 08/31/20 19:00 100 08/31/20 18:24 160 159/68 08/31/20 18:00 137 26 97 Vapotherm 40.00 90.00 08/31/20 17:00 85 28 99 Vapotherm 40.00 90.00 08/31/20 16:00 94 28 90 Vapotherm 40.00 90.00 08/31/20 15:54 37.0 08/31/20 15:31 Vapotherm 40.00 90 08/31/20 15:00 93 21 96 Vapotherm 40.00 90.00 08/31/20 14:47 92 Vapotherm 40.00 90 08/31/20 14:00 91 34 97 Vapotherm 40.00 90.00 08/31/20 13:00 104 38 92 Vapotherm 40.00 90.00 08/31/20 13:00 89 08/31/20 12:57 36.4 08/31/20 12:00 97 26 91 Vapotherm 40.00 90.00 I & O 09/01/20 07:00 Intake Total 3507 ml Output Total 4225 ml Balance -718 ml Height & Weight Height: 5'11.00" Weight: 251lbs. 0.8oz. 112.600424zq; 30.77 BMI Method:Stated General Appearance: No Apparent Distress, Other (on BiPAP) HEENT: Normal ENT Inspection, Other (serosanguinous fluid in tube) Neck: Full Range of Motion Respiratory: Decreased Breath Sounds Cardiovascular: Regular Rate, Rhythm, Systolic Murmur Capillary Refill: Less Than 3 Seconds Gastrointestinal: normal bowel sounds, soft Extremity: Non Tender, No Calf Tenderness, No Pedal Edema Neurologic/Psychiatric: Alert, Oriented x3 Skin: Warm/Dry Results Lab Laboratory Tests 08/31/20 04:10 08/31/20 18:12 09/01/20 04:27 Assessment/Plan Assessment/Plan See free text. NICOLAS GALLAGHER MD Sep 01, 2020 11:42
--- NOTE | 2020-09-01 12:57 | Physical Therapy Daily Note ---
PT Daily Note-Current Subjective Patient lying supine in bed upon PT arrival, agreeable to treatment but refuses mobility training or out of bed treatment. Patient reports he feels a little better, but still not ready to move too much. Pain Numeric Pain Scale: 0-No Pain Mental Status Patient Orientation: Person, Place, Time, Situation Transfers SCALE: Activities may be completed with or without assistive devices. 8-Vmdxdffnyn-cxupjui completes the activity by him/herself with no assistance from a helper. 5-Set-up or Clean-up Assistance-helper sets up or cleans up; patient completes activity. [place] assists only prior to or following the activity. 4-Supervision or Touching Assistance-helper provides verbal cues and/or touching/steadying and/or contact guard assistance as patient completes activity. Assistance may be provided throughout the activity or intermittently. 3-Partial/Moderate Assistance-helper does LESS THAN HALF the effort. [place] lifts, holds or supports trunk or limbs, but provides less than half the effort. 2-Substantial/Maximal Assistance-helper does MORE THAN HALF the effort. [place] lifts or holds trunk or limbs and provides more than half the effort. 9-Acaleuviw-jbllpg does ALL the effort. Patient does none of the effort to complete the activity. Or, the assistance of 2 or more helpers is required for the patient to complete the activity. If activity was not attempted, code reason: 7-Patient Refused. 9-Not Applicable-not attempted and the patient did not perform the activity before the current illness, exacerbation or injury. 10-Not Attempted due to Environmental Limitations-(lack of equipment, weather restraints, etc.). 88-Not Attempted due to Medical Conditions or Safety Concerns. Roll Left & Right (QC): 88 Sit to Lying (QC): 88 Lying to Sitting/Side of Bed(Q: 88 Sit to Stand (QC): 88 Chair/Gty-zu-Aopfy Xfer(QC): 88 Car Transfer (QC): 88 Gait Training Does the Patient Walk?: No and Walking Goal IS indicated Walk 10 feet (QC): 88 Walk 50 ft with 2 Turns(QC): 88 Walk 150 ft (QC): 88 Walking 10ft/uneven surface-QC: 88 Wheelchair Training Does the Pt Use a Wheelchair?: No Wheel 50 ft with 2 turns (QC): 88 Wheel 150 ft (QC): 88 Exercises Supine Ex: Ankle pumps, Quad Set, Glut sets, Heel Slides, Short Arc Quads, Straight leg raise, Hip abd/add Supine Reps: 20 Assessment Current Status: Fair Progress Patient demonstrates fair overall tolerance to LE therapeutic exercise. His monitors read BP of 173/115 upon PT arrival and given his current symptoms, mobility and transfer training are not appropriate at this time. Will attempt to progress patients activity as he is able to safely tolerate. Patient in bed post treatment with all needs met, family in the room, and nursing notified. PT Farmer Cash Grain Goals Farmer Cash Grain Goals PT Farmer Cash Grain Goals Time Frame: Sep 07, 2020 Roll Left & Right (QC): 3 Sit to Lying (QC): 3 Lying-Sitting on Side/Bed(QC): 3 Sit to Stand (QC): 3 Chair/Orq-mj-Pdstv Xfer(QC): 3 PT Plan Problem List Problem List: Activity Tolerance, Functional Strength, Safety, Balance, Gait, Transfer, Bed Mobility Treatment/Plan Treatment Plan: Continue Plan of Care Treatment Plan: Bed Mobility, Education, Functional Activity Soren, Functional Strength, Gait, Safety, Therapeutic Exercise, Transfers Treatment Duration: Sep 07, 2020 Frequency: 6 times per week Estimated Hrs Per Day: .25 hour per day Patient and/or Family Agrees t: Yes Safety Risks/Education Patient Education: Safety Issues Teaching Recipient: Patient, Family Teaching Methods: Discussion Response to Teaching: Verbalize Understanding Time/GCodes Time In: 1117 Time Out: 1130 Total Billed Treatment Time: 13 Total Billed Treatment Visit, Exercise CJ COLMENARES PT Sep 01, 2020 12:57
[2020-09-01] MEDS: ENOXAPARIN 40 MG/0.4 ML (LOVENOX) SYR SC SCH (13:58)
[2020-09-01 14:00] LABS: ABG BASE EXCESS 8.4 MMOL/L (-2.5-2.5); ABG OXYGEN SATURATION 95 % (94-100); ABG PCO2 51 MMHG (35-45); ABG PH 7.43 (7.37-7.43); ABG PO2 85 MMHG (79-93); ABG TCO2 34.3 MMOL/L (21.0-31.0)
[2020-09-01 14:01] LABS: ALLENS TEST LT ART LINE; INSPIRED O2 100%; PATIENT TEMP 37.4; VENTILATOR NO
[2020-09-01] MEDS ORDERED: DexMEDEtomidine 250 ML DRIP 250 ML IV SCH (15:00)
--- NOTE | 2020-09-01 17:16 | Progress Note ---
Subjective Subjective Date Seen by Provider: Sep 01, 2020 Time Seen by Provider: 13:33 Currently on vapotherm. Confused this AM per family. Converses though. He thinks he is home but when I informed him he was at [address] he said 'oh yeah'. Yesterday after 5pm he went into SVT and required adenosine and digoxin. Around 6pm he got another dose of adenosine and amiodarone bolus, gtts with improvement in pulse. He was not tolerating vapotherm this AM and had to go back on bipap. Review of Systems General: No Chills, No Night Sweats; Fatigue, Malaise HEENT: No Head Aches Pulmonary: Dyspnea, Cough, Pleuritic Chest Pain Cardiovascular: No: Chest Pain, Palpitations Gastrointestinal: No: Nausea, Vomiting Genitourinary: No Dysuria Musculoskeletal: No: other Neurological: Weakness All Other Systems Reviewed All Other Systems Reviewed: Yes Objective Exam Vital Signs Vital Signs Date Time Temp Pulse Resp B/P (MAP) Pulse Ox O2 Delivery O2 Flow Rate FiO2 09/01/20 16:13 NIV Bilevel 80 09/01/20 16:00 84 18 156/65 (95) 97 NIV Bilevel 80.00 09/01/20 15:24 96 Vapotherm 40.00 100 09/01/20 15:00 82 26 187/94 (125) 97 NIV Bilevel 80.00 09/01/20 14:00 89 20 181/119 (139) 94 NIV Bilevel 80.00 09/01/20 13:00 88 29 168/108 (128) 88 NIV Bilevel 80.00 09/01/20 12:39 86 09/01/20 12:00 Vapotherm 40.00 100 09/01/20 12:00 87 26 187/106 (133) 99 NIV Bilevel 80.00 09/01/20 11:57 36.2 09/01/20 11:00 89 35 173/115 (134) 94 NIV Bilevel 80.00 09/01/20 10:49 97 Vapotherm 40.00 100 09/01/20 10:00 122 29 139/76 (97) 91 NIV Bilevel 80.00 09/01/20 09:00 84 23 145/75 (98) 89 NIV Bilevel 80.00 09/01/20 08:08 36.8 09/01/20 08:00 78 29 156/97 (116) 97 NIV Bilevel 80.00 09/01/20 07:45 Vapotherm 40.00 100 09/01/20 07:00 78 09/01/20 07:00 79 20 143/98 (113) 95 NIV Bilevel 80.00 Arterial Line 09/01/20 06:53 80 21 94 80.00 09/01/20 06:44 83 Vapotherm 40.00 100 09/01/20 06:00 80 16 96 NIV Bilevel 80.00 09/01/20 05:00 81 15 96 NIV Bilevel 80.00 09/01/20 04:00 NIV Bilevel 80 09/01/20 04:00 82 30 97 NIV Bilevel 80.00 09/01/20 03:00 89 31 96 NIV Bilevel 80.00 09/01/20 02:30 NIV Bilevel 80.00 09/01/20 02:18 77 28 95 90.00 09/01/20 02:17 NIV Bilevel 90.00 09/01/20 02:10 NIV Bilevel 100.00 09/01/20 02:00 103 30 55 Vapotherm 40.00 100.00 09/01/20 01:59 100 Vapotherm 40.00 09/01/20 01:19 100 Vapotherm 40.00 09/01/20 01:00 84 17 92 Vapotherm 40.00 100.00 09/01/20 01:00 88 09/01/20 00:00 88 24 92 Vapotherm 40.00 100.00 09/01/20 00:00 Vapotherm 40.00 100 08/31/20 23:33 36.8 08/31/20 23:00 86 29 94 Vapotherm 40.00 100.00 08/31/20 22:00 92 35 91 Vapotherm 40.00 100.00 08/31/20 21:00 112 37 89 Vapotherm 40.00 100.00 08/31/20 20:38 90 Vapotherm 40.00 100 08/31/20 20:04 Vapotherm 40.00 100.00 08/31/20 20:00 89 22 85 Vapotherm 40.00 90.00 08/31/20 20:00 Vapotherm 40.00 100 08/31/20 19:41 36.8 08/31/20 19:00 93 25 94 Vapotherm 40.00 90.00 08/31/20 19:00 100 08/31/20 18:24 160 159/68 08/31/20 18:00 137 26 97 Vapotherm 40.00 90.00 I & O 09/01/20 07:00 Intake Total 3507 ml Output Total 4225 ml Balance -718 ml General Appearance: No Apparent Distress, Other (on vapotherm- looks more fatigued/worn compared to yesterday) Eyes: Bilateral Eye PERRL, Bilateral Eye EOMI HEENT: Normal ENT Inspection, Other (serosanguinous fluid in tube) Neck: Full Range of Motion Respiratory: Decreased Breath Sounds Cardiovascular: Regular Rate, Rhythm, Systolic Murmur Gastrointestinal: Normal Bowel Sounds Extremity: Non Tender, No Calf Tenderness, No Pedal Edema Neurologic/Psychiatric: Alert, Oriented x3 Skin: Warm/Dry Results Lab Laboratory Tests 08/31/20 18:12: Sodium Level 144, Potassium Level 3.2L, Chloride Level 100, Carbon Dioxide Level 36H, Anion Gap 8, Blood Urea Nitrogen 22H, Creatinine 0.64, Estimat Glomerular Filtration Rate 121, BUN/Creatinine Ratio 34, Glucose Level 100, Calcium Level 10.6H, Magnesium Level 2.1 08/31/20 20:08: Glucometer 71 08/31/20 22:36: Glucometer 79 09/01/20 04:27: Sodium Level 141, Potassium Level 3.4L, Chloride Level 99, Carbon Dioxide Level 36H, Anion Gap 6, Blood Urea Nitrogen 21H, Creatinine 0.69, Estimat Glomerular Filtration Rate 111, BUN/Creatinine Ratio 30, Glucose Level 105, Calcium Level 8.8, Magnesium Level 2.0, White Blood Count 14.3H, Red Blood Count 3.59L, Hemoglobin 10.9L, Hematocrit 35L, Mean Corpuscular Volume 97, Mean Corpuscular Hemoglobin 30, Mean Corpuscular Hemoglobin Concent 31L, Red Cell Distribution Width 15.9H, Platelet Count 261, Mean Platelet Volume 9.7, Immature Granulocyte % (Auto) 2, Neutrophils (%) (Auto) 83H, Lymphocytes (%) (Auto) 7L, Monocytes (%) (Auto) 7, Eosinophils (%) (Auto) 1, Basophils (%) (Auto) 0, Neutrophils # (Auto) 11.9H, Lymphocytes # (Auto) 0.9L, Monocytes # (Auto) 1.0, Eosinophils # (Auto) 0.2, Basophils # (Auto) 0.1, Immature Granulocyte # (Auto) 0.2H, Phosphorus Level 2.5 09/01/20 10:12: Glucometer 81 09/01/20 13:55: Blood Gas Puncture Site LT ART LINE, Blood Gas Patient Temperature 37.4, Arter ial Blood pH 7.43, Arterial Blood Partial Pressure CO2 51H, Arterial Blood Partial Pressure O2 85, Arterial Blood HCO3 33H, Arterial Blood Total CO2 34.3H, Arterial Blood Oxygen Saturation 95, Arterial Blood Base Excess 8.4H, Alexy Test LT ART LINE, Blood Gas Ventilator Setting NO, Blood Gas Inspired Oxygen 100% Microbiology 08/26/20 Gram Stain - Final, Complete 08/26/20 Sputum Culture - Final, Complete Pseudomonas aeruginosa Usual upper respiratory tristan 08/23/20 Blood Culture - Final, Complete No growth Assessment/Plan Assessment/Plan Assessment and Plan Acute on Chronic hypoxic Respiratory Failure-- RT, working on titrating down oxygen requirements but currently going back and forth between vapotherm, bipap. Chronic Airspace Disease with Superimposed Pneumonia--completed abx. Emphysema/COPD/Interstitial Lung Disease--do not reintubate History of PAF--in NSR, blood thinners on hold due to hemoptysis- he is on lovenox though for DVT ppx. hypernatremia- improving with IVF D5. elevated bicarb- switched lasix to diamox 08/31/20- SVT- adenosine x2 08/31/20- on amiodarone gtts. Dispo: appreciate [facility] recs. Spoke with sonMarcus- will try and help Fearoll sleep at night with 5mg Ambien; since he is more agitated/anxious today- restart precedex- Son wanted to do this as we are back to thinking sabra ping him calm/comfortable is becoming the number 1 priority - as it is not likely he is going to get off bipap and/or vapotherm and even less likely to go home- Problems: (1) COPD exacerbation (2) Acute and chronic respiratory failure with hypoxia (3) Paroxysmal atrial fibrillation (4) Steroid-dependent COPD (5) Hypernatremia JOSE COATES MD Sep 01, 2020 17:16
[2020-09-01] MEDS: morphine INJ 4 MG/ML 1 ML (VIAL/SYRINGE) IVP PRN (18:27)
[2020-09-01] MEDS: ZOLPIDEM 5 MG (AMBIEN) TAB PO SCH (20:13)
[2020-09-01 22:03] VITALS: BP 187/94
[2020-09-02] MEDS: inSUlin ASPART (NovoLOG) 1 UNIT/0.01 ML (CHARGE PER UNIT) SC SCH ×5 (00:26→21:09)
[2020-09-02] MEDS: D5W 1000 ML IV SOLUTION 1,000 ML IV SCH (00:27)
[2020-09-02 02:24] VITALS: BP 107/94
[2020-09-02] MEDS: RT-ALBUTEROL/IPRATROPIUM 3 ML (DUONEB) VIAL INH SCH ×6 (02:24→22:07)
[2020-09-02 04:41] LABS: BASOPHILS % (AUTO) 0 % (0-10); EOSINOPHILS # (AUTO) 0.1 10^3/uL (0.0-0.3); EOSINOPHILS % (AUTO) 1 % (0-10); HEMATOCRIT 34 % (40-54); HEMOGLOBIN 10.6 g/dL (13.3-17.7); LYMPHOCYTES # (AUTO) 0.8 10^3/uL (1.0-4.0); LYMPHOCYTES % (AUTO) 7 % (12-44); MEAN CORPUSCULAR HEMOGLOBIN 30 pg (25-34); MEAN CORPUSCULAR HGB CONC 31 g/dL (32-36); MEAN CORPUSCULAR VOLUME 98 fL (80-99); MONOCYTES # (AUTO) 0.8 10^3/uL (0.0-1.0); MONOCYTES % (AUTO) 7 % (0-12); NEUTROPHILS # (AUTO) 9.7 10^3/uL (1.8-7.8); NEUTROPHILS % (AUTO) 84 % (42-75); PLATELET COUNT 252 10^3/uL (130-400); WHITE BLOOD COUNT 11.5 10^3/uL (4.3-11.0)
[2020-09-02 04:42] LABS: POTASSIUM 3.6 MMOL/L (3.6-5.0)
[2020-09-02 04:43] LABS: CALCIUM 8.7 MG/DL (8.5-10.1)
[2020-09-02 04:47] LABS: PHOSPHORUS 2.6 MG/DL (2.3-4.7)
[2020-09-02 04:48] LABS: CREATININE SERUM 0.73 MG/DL (0.60-1.30)
[2020-09-02 04:50] LABS: MAGNESIUM 2.1 MG/DL (1.6-2.4)
[2020-09-02] MEDS: KCL 20 MEQ TAB (K-DUR) PO SCH (06:41)
[2020-09-02] MEDS: MAGNESIUM 1 GM/100 ML IVPB 100 ML IV SCH (06:41)
[2020-09-02] MEDS: POTASSIUM CL 10MEQ/50ML IVPB 50 ML IV SCH (06:41)
[2020-09-02 08:03] VITALS: BP 107/94
[2020-09-02] MEDS ORDERED: KCL 20 MEQ TAB (K-DUR) PO ONE (09:00)
[2020-09-02] MEDS: acetaZOLAMIDE INJ 500 MG/5 ML (DIAMOX) VIAL IV SCH (09:13)
[2020-09-02] MEDS: PANTOPRAZOLE 40 MG (PROTONIX) VIAL IV SCH (09:42)
[2020-09-02] MEDS: HYDROCORTISONE 100 MG/2 ML (Solu-CORTEF) VIAL IV SCH ×2 (09:42→20:16)
[2020-09-02] MEDS: DIGOXIN 0.125 MG (LANOXIN) TAB PO SCH (09:43)
[2020-09-02] MEDS: DRONEDARONE TABLET 400 MG TABLET PO SCH ×2 (09:43→20:16)
[2020-09-02] MEDS: ENOXAPARIN 40 MG/0.4 ML (LOVENOX) SYR SC SCH (10:08)
--- NOTE | 2020-09-02 10:38 | Tele-ICU Progress Note ---
Progress Note video rounds completed 80 y/o male with ILD on home O2 admitted with respiratory failure. Was intubated then extubated on 08/29 Nikita bernal fib was on amiodarone. Now in sinus PE: sitting up in bed comfortably with visitor at bedside having conversation. Pulse 85 NSR BP: 187/94 LABS: wbc: 11.5 Hb.6 Plts: 252 Na 141 K: 3.6 Cl: 103 CO2: 30 BUN: 19 Creat: 0.73 Patient DNR, refusing BIPAP, currently comfortable Focused Exam Sepsis Stage: Sepsis Height, Weight, BMI Height: 5'11.00" Weight: 251lbs. 0.8oz. [id number]; 30.77 BMI Method:Stated ERNAY LAMAS MD Sep 02, 2020 10:38
--- NOTE | 2020-09-02 14:58 | Progress Note ---
Subjective Subjective Date Seen by Provider: Sep 02, 2020 Time Seen by Provider: 12:55 Currently on vapotherm. Sitting up in a chair. In better spirit today- Reports he slept like a rock last night with the ambien. He feels it helped a lot. Recognizes family in the room. Has no complaints today. No overnight events. Review of Systems General: No Chills, No Night Sweats; Fatigue, Malaise HEENT: No Head Aches Pulmonary: Dyspnea, Cough; No Pleuritic Chest Pain Cardiovascular: No: Chest Pain, Palpitations Gastrointestinal: No: Nausea, Vomiting Genitourinary: No Dysuria Musculoskeletal: No: other Neurological: Weakness All Other Systems Reviewed All Other Systems Reviewed: Yes Objective Exam Vital Signs Vital Signs Date Time Temp Pulse Resp B/P (MAP) Pulse Ox O2 Delivery O2 Flow Rate FiO2 09/02/20 14:42 100 Vapotherm 40.00 100 09/02/20 13:00 88 09/02/20 12:00 87 21 140/83 (102) 99 NIV Bilevel 40.00 09/02/20 11:49 36.7 09/02/20 11:00 83 21 98 NIV Bilevel 40.00 09/02/20 10:45 95 Vapotherm 40.00 100 09/02/20 10:00 84 16 97 NIV Bilevel 40.00 09/02/20 09:00 93 20 92 NIV Bilevel 40.00 09/02/20 08:22 NIV Bilevel 70 09/02/20 08:03 84 25 91 60.00 09/02/20 08:03 37.0 09/02/20 08:00 91 26 90 NIV Bilevel 40.00 09/02/20 07:00 80 09/02/20 07:00 80 28 92 NIV Bilevel 40.00 09/02/20 06:00 23 88 NIV Bilevel 40.00 09/02/20 05:21 NIV Bilevel 40.00 09/02/20 05:00 30 97 NIV Bilevel 50.00 09/02/20 04:03 NIV Bilevel 50.00 09/02/20 04:00 89 26 72 NIV Bilevel 60.00 09/02/20 04:00 NIV Bilevel 70 09/02/20 03:04 NIV Bilevel 60.00 09/02/20 03:00 94 23 83 NIV Bilevel 40.00 09/02/20 02:24 84 25 91 60.00 09/02/20 02:00 82 24 88 NIV Bilevel 40.00 09/02/20 01:51 NIV Bilevel 40.00 09/02/20 01:00 83 09/02/20 01:00 82 18 94 NIV Bilevel 50.00 09/02/20 00:27 36.5 NIV Bilevel 50.00 09/02/20 00:00 87 98 NIV Bilevel 60.00 09/02/20 00:00 NIV Bilevel 60 09/01/20 23:00 89 90 NIV Bilevel 60.00 09/01/20 22:03 91 37 94 60.00 09/01/20 22:00 92 94 NIV Bilevel 60.00 09/01/20 21:46 NIV Bilevel 60.00 09/01/20 21:00 89 121/60 (80) 95 NIV Bilevel 70.00 09/01/20 20:29 NIV Bilevel 70.00 09/01/20 20:27 36.7 NIV Bilevel 80.00 09/01/20 20:00 Vapotherm 40.00 100 09/01/20 20:00 94 20 69/62 (64) 96 Vapotherm 40.00 100.00 09/01/20 19:00 89 16 134/117 (123) 91 Vapotherm 40.00 100.00 09/01/20 19:00 87 09/01/20 18:50 94 Vapotherm 40.00 100 09/01/20 18:30 Vapotherm 40.00 100.00 09/01/20 18:00 84 20 100/95 (97) 95 NIV Bilevel 70.00 09/01/20 17:09 NIV Bilevel 70.00 09/01/20 17:00 84 18 96/87 (90) 97 NIV Bilevel 80.00 09/01/20 16:13 NIV Bilevel 80 09/01/20 16:00 84 18 156/65 (95) 97 NIV Bilevel 80.00 09/01/20 15:24 96 Vapotherm 40.00 100 09/01/20 15:00 82 26 187/94 (125) 97 NIV Bilevel 80.00 I & O 09/02/20 07:00 Intake Total 1559 ml Output Total 2450 ml Balance -891 ml General Appearance: No Apparent Distress, Other (on vapotherm- looks more fatigued/worn compared to yesterday) Eyes: Bilateral Eye PERRL, Bilateral Eye EOMI HEENT: Normal ENT Inspection, Other (serosanguinous fluid in tube) Neck: Full Range of Motion Respiratory: Decreased Breath Sounds Cardiovascular: Regular Rate, Rhythm, Systolic Murmur Gastrointestinal: Normal Bowel Sounds Extremity: Non Tender, No Calf Tenderness, No Pedal Edema Neurologic/Psychiatric: Alert, Oriented x3 Skin: Warm/Dry Results Lab Laboratory Tests 09/01/20 17:08: Glucometer 96 09/02/20 04:02: White Blood Count 11.5H, Red Blood Count 3.52L, Hemoglobin 10.6L, Hematocrit 34L , Mean Corpuscular Volume 98, Mean Corpuscular Hemoglobin 30, Mean Corpuscular Hemoglobin Concent 31L, Red Cell Distribution Width 15.9H, Platelet Count 252, Mean Platelet Volume 10.0, Immature Granulocyte % (Auto) 1, Neutrophils (%) (Auto) 84H, Lymphocytes (%) (Auto) 7L, Monocytes (%) (Auto) 7, Eosinophils (%) (Auto) 1, Basophils (%) (Auto) 0, Neutrophils # (Auto) 9.7H, Lymphocytes # (Auto) 0.8L, Monocytes # (Auto) 0.8, Eosinophils # (Auto) 0.1, Basophils # (Auto) 0.0, Immature Granulocyte # (Auto) 0.2H, Sodium Level 141, Potassium Level 3.6, Chloride Level 103, Carbon Dioxide Level 30, Anion Gap 8, Blood Urea Nitrogen 19H, Creatinine 0.73, Estimat Glomerular Filtration Rate 104, BUN/Creatinine Ratio 26, Glucose Level 117H, Calcium Level 8.7, Phosphorus Level 2.6, Magnesium Level 2.1 09/02/20 10:29: Glucometer 90 Microbiology 08/26/20 Gram Stain - Final, Complete 08/26/20 Sputum Culture - Final, Complete Pseudomonas aeruginosa Usual upper respiratory tristan 08/23/20 Blood Culture - Final, Complete No growth Assessment/Plan Assessment/Plan Assessment and Plan Acute on Chronic hypoxic Respiratory Failure-- RT, working on titrating down oxygen requirements but currently going back and forth between vapotherm, bipap. Chronic Airspace Disease with Superimposed Pneumonia--completed abx. Emphysema/COPD/Interstitial Lung Disease--do not reintubate History of PAF--in NSR, blood thinners on hold due to hemoptysis- he is on lovenox though for DVT ppx. hypernatremia- improving with IVF D5. - stopped IVF. elevated bicarb- switched lasix to diamox 08/31/20- SVT- adenosine x2 08/31/20- on amiodarone gtts. insomnia- ambien helped. Dispo: appreciate eICU recs. Stopped IVF today. Sodium down to 141. Transfer to cardiac stepdown. He is doing well today compared to yesterday. I don't expect it is likely that he will get down to supplemental oxygen to go home on- Likely vapotherm or bipap is the best he is going to get. Problems: (1) Acute and chronic respiratory failure with hypoxia (2) COPD exacerbation (3) Paroxysmal atrial fibrillation (4) Steroid-dependent COPD (5) Hypernatremia JOSE COATES MD Sep 02, 2020 14:58
[2020-09-02] MEDS ORDERED: ADENOSINE 6 MG/2 ML (ADENOCARD) VIAL IV ONE ×2 (17:45→17:48)
[2020-09-02] MEDS ORDERED: NS (IVPB) 250 ML ONE (18:01)
[2020-09-02] MEDS ORDERED: dilTIAZem DRIP PRE-MIX 125 ML IV ONE (18:18)
[2020-09-02] MEDS: dilTIAZem DRIP PRE-MIX 125 ML IV SCH (18:20)
[2020-09-02 19:04] VITALS: BP 116/90
[2020-09-02] MEDS: ZOLPIDEM 5 MG (AMBIEN) TAB PO SCH (20:16)
[2020-09-03] MEDS: RT-ALBUTEROL/IPRATROPIUM 3 ML (DUONEB) VIAL INH SCH ×6 (00:49→21:33)
[2020-09-03 01:04] VITALS: BP 105/74
[2020-09-03] MEDS: dilTIAZem DRIP PRE-MIX 125 ML IV SCH ×2 (04:18→17:25)
[2020-09-03 04:32] LABS: BASOPHILS % (AUTO) 0 % (0-10); EOSINOPHILS # (AUTO) 0.1 10^3/uL (0.0-0.3); EOSINOPHILS % (AUTO) 1 % (0-10); HEMATOCRIT 35 % (40-54); HEMOGLOBIN 10.8 g/dL (13.3-17.7); LYMPHOCYTES # (AUTO) 0.8 10^3/uL (1.0-4.0); LYMPHOCYTES % (AUTO) 7 % (12-44); MEAN CORPUSCULAR HEMOGLOBIN 30 pg (25-34); MEAN CORPUSCULAR HGB CONC 31 g/dL (32-36); MEAN CORPUSCULAR VOLUME 99 fL (80-99); MEAN PLATELET VOLUME 10.2 fL (9.0-12.2); MONOCYTES # (AUTO) 0.8 10^3/uL (0.0-1.0); MONOCYTES % (AUTO) 7 % (0-12); NEUTROPHILS # (AUTO) 10.2 10^3/uL (1.8-7.8); NEUTROPHILS % (AUTO) 84 % (42-75); PLATELET COUNT 230 10^3/uL (130-400); WHITE BLOOD COUNT 12.1 10^3/uL (4.3-11.0)
[2020-09-03 04:36] LABS: POTASSIUM 3.7 MMOL/L (3.6-5.0)
[2020-09-03 04:37] LABS: CALCIUM 8.7 MG/DL (8.5-10.1)
[2020-09-03 04:41] LABS: PHOSPHORUS 2.8 MG/DL (2.3-4.7)
[2020-09-03 04:42] LABS: CREATININE SERUM 0.75 MG/DL (0.60-1.30)
[2020-09-03 04:44] LABS: MAGNESIUM 2.2 MG/DL (1.6-2.4)
[2020-09-03] MEDS: MAGNESIUM 1 GM/100 ML IVPB 100 ML IV SCH (06:00)
[2020-09-03] MEDS: inSUlin ASPART (NovoLOG) 1 UNIT/0.01 ML (CHARGE PER UNIT) SC SCH ×4 (06:00→21:04)
[2020-09-03] MEDS: KCL 20 MEQ TAB (K-DUR) PO SCH (06:00)
[2020-09-03] MEDS: POTASSIUM CL 10MEQ/50ML IVPB 50 ML IV SCH (06:00)
[2020-09-03 07:02] VITALS: BP 139/84
[2020-09-03] MEDS: aCETylcysteine 20% (MUCOMYST) 30ML SOLN VIAL INH PRN (07:02)
--- NOTE | 2020-09-03 08:01 | Progress Note ---
Subjective Subjective Date Seen by Provider: Sep 03, 2020 Time Seen by Provider: 07:50 PT IS A 80 Y/O MALE WHO IS KNOWN TO ME FROM CLINIC. 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 HE WAS RECENTLY DECREASED ON VAPOTHERM THIS MORNING FROM 40 LITERS AT 100% TO 40 LITERS AT 90%. STAFF REPORTS THAT HE HAS CHOKED A FEW TIMES ON FLUIDS, IS ON THICKENED LIQUIDS HE WAS ALSO STARTED ON CARDIZEM DRIP YESTERDAY AND IS AT 10MG/HR. Review of Systems General: No Chills, No Night Sweats; Fatigue, Malaise HEENT: No Head Aches Pulmonary: Dyspnea, Cough; No Pleuritic Chest Pain Cardiovascular: No: Chest Pain, Palpitations Gastrointestinal: No: Nausea, Vomiting Genitourinary: No Dysuria Musculoskeletal: No: other Neurological: Weakness; No: Confusion All Other Systems Reviewed All Other Systems Reviewed: Yes Objective Exam Vital Signs Vital Signs Date Time Temp Pulse Resp B/P (MAP) Pulse Ox O2 Delivery O2 Flow Rate FiO2 09/03/20 07:35 36.6 09/03/20 07:07 92 NIV Bilevel 09/03/20 07:02 84 23 92 40.00 09/03/20 06:00 81 25 132/75 (94) 91 NIV Bilevel 40.00 09/03/20 05:54 NIV Bilevel 40.00 09/03/20 05:00 75 11 134/70 (91) 95 NIV Bilevel 45.00 09/03/20 04:00 92 14 122/67 (85) 92 NIV Bilevel 45.00 09/03/20 03:45 NIV Bilevel 45.00 09/03/20 03:00 122 20 106/73 (84) 91 NIV Bilevel 40.00 09/03/20 02:39 NIV Bilevel 40.00 09/03/20 02:00 92 30 96/70 (79) 91 NIV Bilevel 50.00 09/03/20 01:15 NIV Bilevel 50.00 09/03/20 01:04 104 29 95 60.00 09/03/20 01:00 109 09/03/20 01:00 109 39 105/74 (84) 93 Vapotherm 40.00 100.00 09/03/20 00:49 97 Vapotherm 40.00 100 09/03/20 00:00 112 19 104/73 (83) 96 Vapotherm 40.00 100.00 09/03/20 00:00 Vapotherm 40.00 100 09/02/20 23:59 36.1 09/02/20 23:52 98 35 108/71 (83) 97 Vapotherm 40.00 100.00 09/02/20 22:07 97 Vapotherm 40.00 100 09/02/20 22:05 114 14 115/81 (92) 98 Vapotherm 40.00 100.00 09/02/20 21:00 115 20 130/92 (105) 94 Vapotherm 40.00 100.00 09/02/20 20:05 Vapotherm 40.00 100.00 09/02/20 20:00 Vapotherm 40.00 100 09/02/20 20:00 105 116/91 (99) NIV Bilevel 60.00 09/02/20 19:40 36.2 09/02/20 19:04 101 29 95 60.00 09/02/20 19:02 101 22 140/84 (102) 93 NIV Bilevel 60.00 09/02/20 19:00 110 09/02/20 19:00 NIV Bilevel 60.00 09/02/20 17:33 Vapotherm 40.00 100.00 09/02/20 16:00 86 28 97 NIV Bilevel 40.00 09/02/20 16:00 36.7 09/02/20 14:42 100 Vapotherm 40.00 100 09/02/20 13:00 88 09/02/20 12:00 87 21 140/83 (102) 99 NIV Bilevel 40.00 09/02/20 11:49 36.7 09/02/20 11:00 83 21 98 NIV Bilevel 40.00 09/02/20 10:45 95 Vapotherm 40.00 100 09/02/20 10:00 84 16 97 NIV Bilevel 40.00 09/02/20 09:00 93 20 92 NIV Bilevel 40.00 09/02/20 08:22 NIV Bilevel 70 09/02/20 08:03 84 25 91 60.00 09/02/20 08:03 37.0 09/02/20 08:00 91 26 90 NIV Bilevel 40.00 I & O 09/03/20 07:00 Intake Total 1020 ml Output Total 2200 ml Balance -1180 ml General Appearance: WD/WN, Mild Distress, Other Eyes: Bilateral Eye PERRL, Bilateral Eye EOMI HEENT: PERRL/EOMI, Normal ENT Inspection Neck: Full Range of Motion, Supple Respiratory: Crackles (BASES), Decreased Breath Sounds Cardiovascular: Regular Rate, Rhythm, Systolic Murmur Gastrointestinal: Normal Bowel Sounds, Non Tender, Soft Extremity: Non Tender, No Calf Tenderness, No Pedal Edema Neurologic/Psychiatric: Alert, Oriented x3 Skin: Normal Color, Warm/Dry Lymphatic: No Adenopathy Results Lab Laboratory Tests 09/02/20 10:29: Glucometer 90 09/02/20 15:26: Glucometer 114H 09/02/20 20:04: Glucometer 109 09/03/20 04:20: White Blood Count 12.1H, Red Blood Count 3.57L, Hemoglobin 10.8L, Hematocrit 35L , Mean Corpuscular Volume 99, Mean Corpuscular Hemoglobin 30, Mean Corpuscular Hemoglobin Concent 31L, Red Cell Distribution Width 16.1H, Platelet Count 230, Mean Platelet Volume 10.2, Immature Granulocyte % (Auto) 1, Neutrophils (%) (Auto) 84H, Lymphocytes (%) (Auto) 7L, Monocytes (%) (Auto) 7, Eosinophils (%) (Auto) 1, Basophils (%) (Auto) 0, Neutrophils # (Auto) 10.2H, Lymphocytes # (Auto) 0.8L, Monocytes # (Auto) 0.8, Eosinophils # (Auto) 0.1, Basophils # (Auto) 0.0, Immature Granulocyte # (Auto) 0.1, Sodium Level 145, Potassium Level 3.7, Chloride Level 110H, Carbon Dioxide Level 26, Anion Gap 9, Blood Urea Nitrogen 20H, Creatinine 0.75, Estimat Glomerular Filtration Rate 101, BUN/Creatinine Ratio 27, Glucose Level 100, Calcium Level 8.7, Phosphorus Level 2.8, Magnesium Level 2.2 Microbiology 08/26/20 Gram Stain - Final, Complete 08/26/20 Sputum Culture - Final, Complete Pseudomonas aeruginosa Usual upper respiratory tristan 08/23/20 Blood Culture - Final, Complete No growth Assessment/Plan Assessment/Plan Admission Dx ACUTE RESPIRATORY FAILURE MULTILOBAR PNEUMONIA SEVERE EMPHYSEMA INTERSTITIAL LUNG DISEASE SUPRAVENTRICULAR TACHYCARDIA HX OF PAROXYSMAL ATRIAL FIBRILLATION WEAKNESS Assessment and Plan ACUTE RESPIRATORY FAILURE MULTILOBAR PNEUMONIA 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 - MONITOR CLOSELY. - PT IS AT VERY HIGH RISK OF DECLINE. - DISCUSSED WITH PT'S SON, HE WOULD LIKE TO CONSIDER TRACHEOSTOMY WITH AT- HOME VENTILATION MULTILOBAR PNEUMONIA - RECENTLY ON IV ANTIBIOTICS, MONITOR SYMPTOMS. 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
[2020-09-03] MEDS: DIGOXIN 0.125 MG (LANOXIN) TAB PO SCH (08:06)
[2020-09-03] MEDS: DRONEDARONE TABLET 400 MG TABLET PO SCH ×2 (08:06→21:04)
[2020-09-03] MEDS: HYDROCORTISONE 100 MG/2 ML (Solu-CORTEF) VIAL IV SCH ×2 (08:06→21:04)
[2020-09-03] MEDS: PANTOPRAZOLE 40 MG (PROTONIX) VIAL IV SCH (08:06)
[2020-09-03] MEDS: acetaZOLAMIDE INJ 500 MG/5 ML (DIAMOX) VIAL IV SCH (08:19)
[2020-09-03 08:20] VITALS: BP 139/84
--- NOTE | 2020-09-03 08:25 | ST Dysphagia Evaluation ---
Speech Evaluation-General Medical Diagnosis resp. failure Onset Date: Aug 23, 2020 Therapy Diagnosis Therapy Diagnosis: Oropharyngeal Dysphagia Precautions Precautions: Aspiration Precautions/Isolations: Aspiration Referral Referring Physician: Dr. Mauricio Medical History Pertinent Medical History: Atrial Fib, COPD Reviewed History: Yes Social History Current Living Status: Spouse Speech PLF/Current-Dysphagia Prior Level of Function Patient lives in his home with his who assists him with his daily needs. Subjective Patient was pleasant and agreeable to downgrade in diet due this current condition. Cognitive Status Patient Orientation: Person, Place, Situation Oral Motor Skills Dentition: Natural, Tumbled, Stained Current Food Consistancy: Dysphagia Soft, Thin Liquids Ability to Follow Directions: Good Patient experienced choking incident this weekend with intake of meds in pudding. Referral for swallow reassessment due to current condition. Oral Expression Ability: No Impairment Voice Voice Phonatory-Based Quality: Hoarse, Weak Voice Pitch: Normal Voice Loudness: Mildly Soft/Quiet Face Facial Symmetry: Symmetrical Oral-Facial Assessment Oral-Facial Dentition: Normal Labial Seal Description: Weak Puff Cheeks: Reduced Strength Lingual Protrusion: Abnormal Decreased ROM, strength and coordination due to current medical status. Lingual ROM: Abnormal Decreased ROM, strength and coordination due to current medical status. Lingual Strength: Abnormal Decreased ROM, strength and coordination due to current medical status. Gag Reflex Response: Normal Pharynx Velopharyngeal Move.: Normal Volitional Dry Swallow: Yes Voluntary Cough: Yes Productive Cough: Yes Copiouse amount of thick brown sputum coughed up Dysphagia Evaluation Consistencies Presented: [place] Thick Liquid, Honey Thick Liquid, Pureed Patient's oral phase of swallow is within normal range for puree and honey consistency liquids. Patient's pharyngeal phase of swallow is within normal range for puree and honey consistency liquids. Funct. Velo/Pharyngeal Symptom: Wet Voice Dietary Recommendations: Pureed Liquid Recommendations: Honey Consistancy Swallowing Precautions: Alternate Liquids/Solids, Double Swallow, Decreased Bolus 1/2 Tsp, Liquids from Spoon, No Straw, Small Bites and Sips, Sitting Upright 90 Degrees, Sitting 90 Degrees 30 Post Intake Dysphagia Evaluation Summary Patient was reassessed for swallow function and diet analysis due to choking incident this weekend and medical status. The patient is alert and oriented. He was given trials of puree with honey consistency liquids without difficulty at the oral and pharyngeal phases. Patient's present and educated on diet level as well as compensatory strategies to utilize for safest intake. Patient is recommended to downgrade to Dysphagia I and honey consistency liquids at this time. Nursing updated and diet level written on the white board in his room. Barriers to Learning Patient's medical status and age Speech Short Term Goals Short Term Goals Short Term Goals 1) Patient will tolerate least restrictive diet level without s/s of aspiration at 90% or greater. 2) Patient/caregiver will utilize compensatory strategies as trained for safe oral intake at 90% or greater. Speech Multimedia Designer Goals Long-Term Goals Patient will maintain adequate nutrition/hydration via safe effective swallow function. Speech-Plan Patient/Family Goals Patient/Family Goals: Patient's discharge plan is unknown at this time. Dr. Pruitt present this am and discussed his options for follow up care upon discharge. Treatment Plan Speech Therapy Treatment Plan: Discontinue ST Treatment Duration: Sep 07, 2020 Frequency: 1 time per week Estimated Hrs Per Day: .25 hour per day Rehab Potential: Guarded Barriers to Learning: Patient's medical status and age Pt/Family Agrees to Plan: Yes Safety Risks/Education Teaching Recipient: Patient, Significant Other Teaching Methods: Discussion Response to Teaching: Verbalize Understanding Education Topics Provided: Continued safety strategies, diet levels and change Time Speech Therapy Time In: 08:15 Speech Therapy Time Out: 08:30 Total Billed Time: 15 Billed Treatment Time 1, CLYDE DECKER [address] Sep 03, 2020 08:25
--- NOTE | 2020-09-03 08:27 | Diagnostic Imaging Report ---
INDICATION: Pneumonia, followup.. TECHNIQUE: Single view chest 8:12 AM. CORRELATION STUDY: 08/31/2020 FINDINGS: Poststernotomy changes with cardiac valve prosthesis. Electronic Loop recorder device over the cardiac apex. Heart size is somewhat obscured but appears be generally stable. Vasculature also obscured. There is presence of extensive, 5 lobe pulmonary opacities. Right slightly greater than left. Given difference in technique, may be slightly less dense consolidation. Probable small right pleural effusion as well. Biapical pleural thickening. IMPRESSION: 1. Extensive 5 lobe pulmonary opacities most compatible with multilobe pneumonia. Overall stable to perhaps minimally improved from prior. Small right pleural effusion. Dictated by: Dictated on workstation # [id number]
--- NOTE | 2020-09-03 08:50 | Consultation-Cardiology ---
HPI-Cardiology Cardiology Consultation: Date of Consultation 09/03/20 Date of Admission 08-23-20 Attending Physician Belen Mauricio DO Admitting Physician Reji Pruitt MD Consulting Physician KERRY MEDINA Review of Systems-Cardiology All Other Systems Reviewed Negative Unless Noted: Yes JGP-Geczaa-Ezgybl Hx Patient Social History Marrital Status: Smoking Status: Former Smoker Former smoker/When Quit: Feb 09, 1999 2nd Hand Smoke Exposure: Yes Have you traveled recently?: No Alcohol Use?: No Pt feels they are or have been: No Immunizations Up To Date Tetanus Booster (TDap): Unknown Date of Pneumonia Vaccine: Apr 17, 2016 Date of Influenza Vaccine: Nov 10, 2019 Past Medical History PMH As described under Assessment. Allergies and Home Medications Allergies Coded Allergies: shellfish derived (Unverified Allergy, Severe, ANAPHYLAXIS, 02/18/19) meperidine (Unverified Allergy, Intermediate, LOW BP, N/V, 02/18/19) Home Medications Digoxin 125 Mcg Tablet, 125 MCG PO DAILY, (Reported) Last Action: Reviewed Diltiazem HCl 180 Mg Cap.er.24h, 180 MG PO DAILY, (Reported) Last Action: Reviewed Dronedarone HCl 400 Mg Tablet, 400 MG PO BID, (Reported) Last Action: Reviewed Fluticasone/Umeclidin/Vilanter 1 Each Blst.w.dev, 1 PUFF IH HS, (Reported) Last Action: Reviewed Gemfibrozil 600 Mg Tablet, 600 MG PO BID, (Reported) Last Action: Reviewed Montelukast Sodium 10 Mg Tablet, 10 MG PO HS, (Reported) Last Action: Reviewed Omeprazole 40 Mg Capsule.dr, 40 MG PO DAILY, (Reported) Last Action: Reviewed Pravastatin Sodium 20 Mg Tablet, 20 MG PO HS, (Reported) Last Action: Reviewed Rivaroxaban 20 Mg Tablet, 20 MG PO DAILY, (Reported) Last Action: Reviewed Spironolactone 25 Mg Tablet, 25 MG PO DAILY, (Reported) Last Action: Reviewed Tamsulosin HCl 0.4 Mg Cap, 0.4 MG PO DAILY, (Reported) Last Action: Reviewed Testosterone Cypionate 200 Mg/1 Ml Vial, 200 MG INJ EVERY 2 WEEKS, (Reported) Last Action: Reviewed Tramadol HCl 50 Mg Tablet, 50-100 MG PO QID PRN for PAIN-MODERATE, (Reported) Last Action: Continued Physical Exam-Cardiology Physical Exam Vital Signs/I&O 09/03/20 09/03/20 09/03/20 09/03/20 20:00 20:00 21:00 21:33 Pulse 102 96 Resp 19 B/P (MAP) 135/89 (98) 133/80 (100) Pulse Ox 94 93 O2 Delivery Vapotherm Vapotherm Vapotherm Vapotherm O2 Flow Rate 40.00 40.00 40.00 40.00 90.00 90.00 FiO2 100 100 09/03/20 09/03/20 09/03/20 09/03/20 21:43 22:00 22:30 23:00 Pulse 91 91 88 Resp 26 17 B/P (MAP) 140/87 (104) 146/95 (113) Pulse Ox 96 92 94 91 O2 Delivery Vapotherm NIV Bilevel NIV Bilevel O2 Flow Rate 40.00 40.00 50.00 50.00 90.00 09/04/20 09/04/20 09/04/20 09/04/20 00:00 00:00 00:00 01:00 Temp 36.4 Pulse 96 88 B/P (MAP) 138/82 (99) Pulse Ox 92 O2 Delivery NIV Bilevel NIV Bilevel O2 Flow Rate 50.00 FiO2 50 09/04/20 09/04/20 09/04/20 09/04/20 01:00 02:00 02:34 03:00 Pulse 88 87 87 88 Resp 25 17 24 B/P (MAP) 155/85 (108) 142/88 (106) 156/91 (112) Pulse Ox 94 95 92 94 O2 Delivery NIV Bilevel NIV Bilevel NIV Bilevel O2 Flow Rate 50.00 50.00 50.00 50.00 09/04/20 09/04/20 09/04/20 09/04/20 04:00 04:00 04:00 05:00 Temp 36.0 Pulse 90 87 B/P (MAP) 147/90 (109) 144/89 (107) Pulse Ox 90 91 O2 Delivery NIV Bilevel NIV Bilevel NIV Bilevel O2 Flow Rate 50.00 50.00 FiO2 50 09/04/20 06:00 Pulse 87 B/P (MAP) 148/87 (107) Pulse Ox 94 O2 Delivery NIV Bilevel O2 Flow Rate 50.00 09/04/20 00:00 Intake Total 430 ml Output Total 1075 ml Balance -645 ml Capillary Refill : Less Than 3 Seconds Lymphatic: no adenopathy (neck, axilla or groin) Data Review Labs Laboratory Tests 09/03/20 10:59: Glucometer 120H 09/03/20 15:23: Glucometer 117H 09/03/20 20:24: Glucometer 91 09/04/20 02:59: Sodium Level 147H, Potassium Level 3.7, Chloride Level 113H, Carbon Dioxide Level 23, Anion Gap 11, Blood Urea Nitrogen 19H, Creatinine 0.70, Estimat Glomerular Filtration Rate 109, BUN/Creatinine Ratio 27, Glucose Level 128H, Calcium Level 8.8, Phosphorus Level 2.6, Magnesium Level 2.0, Digoxin Level 0.71L Microbiology 08/26/20 Gram Stain - Final, Complete 08/26/20 Sputum Culture - Final, Complete Pseudomonas aeruginosa Usual upper respiratory tristan 08/23/20 Blood Culture - Final, Complete No growth Radiology NAME: [facility] REC#: [id number] PT STATUS: ADM IN : 1940 PHYSICIAN: REJI PRUITT MD ADMIT DATE: 08/23/20/ICU Draft Date of Exam:09/03/20 CHEST 1 VIEW, AP/PA ONLY INDICATION: Pneumonia, followup.. TECHNIQUE: Single view chest 8:12 AM. CORRELATION STUDY: 08/31/2020 FINDINGS: Poststernotomy changes with cardiac valve prosthesis. Electronic Loop recorder device over the cardiac apex. Heart size is somewhat obscured but appears be generally stable. Vasculature also obscured. There is presence of extensive, 5 lobe pulmonary opacities. Right slightly greater than left. Given difference in technique, may be slightly less dense consolidation. Probable small right pleural effusion as well. Biapical pleural thickening. IMPRESSION: 1. Extensive 5 lobe pulmonary opacities most compatible with multilobe pneumonia. Overall stable to perhaps minimally improved from prior. Small right pleural effusion. Dictated on workstation # [id number] Dict: 09/03/20824 Trans: 09/03/2027 CV [id number] Interpreted by: SANDRO YOUNGER DO Electronically signed by: A/P-Cardiology Assessment/Admission Diagnosis Respiratory failure, admitted on 08-23-20 History of mitral valve repair with annuloplasty ring placement done [place] [address] Dean, - last echocardiogram was done in December [address] Nur showing ejection fraction 55-65 percent, left atrium 5.4 cm, the mitral valve has some deterioration compared to the previous study Paroxysmal atrial fibrillation. - Had ablation done in April [address] Pratt, had episode of atrial flutter with rapid ventricular response, electrical cardioversion in December 2019, went back to atrial flutter which appeared to be at left atrial origin with 2-1 cond uction. - maintained on Multaq as an outpatient - History of intolerance to amiodarone with his underlying lung condition, - intolerance to higher dose of sotalol with prolonged QT interval, - started back on Multaq and Cardizem - [id number] score is 3, yearly risk of stroke without oral anticoagulation is 3.2 percent - Prior to hospital admission had been on Xarelto for stroke prophylaxis - currently not taking Transient episode of nonsustained ventricular tachycardia occurred in the preoperative area in [facility] on November 01, 2014, evaluated by his own research/program director with Dr. Ibrahim at [facility], had ablation with Dr Pratt in April 2019, continue to monitor Hypertension Hyperlipidemia Hemochromatosis- followed by Dr. Lynn. History of heart catheterization done in 2009 and reported to have no significant obstructive disease in his coronaries History of syncope after the heart catheterization of unknown etiology. Diabetes mellitus, controlled by diet, followed and managed by primary care physician COPD/Obstructive sleep apnea use C Pap at night, followed and managed by [facility] Pulmonary ILD - followed by [facility] Sjogern syndrome, fibromyalgia, spinal stenosis, osteoporosis, osteoarthritis, left elbow ulnar nerve release, carpal tunnel release, bilateral inguinal hernia repair Nonobstructive carotid artery stenosis-most recent carotid duplex done January 2020 by KERRY Funes Sep 03, 2020 08:49
[2020-09-03] MEDS: ENOXAPARIN 40 MG/0.4 ML (LOVENOX) SYR SC SCH (10:39)
--- NOTE | 2020-09-03 11:39 | Tele-ICU Progress Note ---
Subjective Date Seen by a Provider: Sep 03, 2020 Time Seen by a Provider: 11:39 Sepsis Event Evaluation Height, Weight, BMI Height: 5'11.00" Weight: 251lbs. 0.8oz. 112.200044xm; 30.77 BMI Method:Stated Exam Exam Patient acknowledged, consented, and participated in this virtual visit which was conducted using real time audio/video Vital Signs Date Time Temp Pulse Resp B/P (MAP) Pulse Ox O2 Delivery O2 Flow Rate FiO2 09/03/20 10:00 86 20 131/77 (95) 92 Vapotherm 40.00 90.00 09/03/20 09:00 86 29 107/91 (96) 79 Vapotherm 40.00 90.00 09/03/20 08:20 36.6 84 95 90 09/03/20 08:02 Vapotherm 40.00 90.00 09/03/20 08:00 84 29 140/86 (104) 88 NIV Bilevel 40.00 09/03/20 07:51 95 Vapotherm 40.00 100 09/03/20 07:35 36.6 09/03/20 07:07 92 NIV Bilevel 09/03/20 07:02 84 23 92 40.00 09/03/20 07:00 83 22 139/84 (102) 91 NIV Bilevel 40.00 09/03/20 07:00 83 09/03/20 06:00 81 25 132/75 (94) 91 NIV Bilevel 40.00 09/03/20 05:54 NIV Bilevel 40.00 09/03/20 05:00 75 11 134/70 (91) 95 NIV Bilevel 45.00 09/03/20 04:00 92 14 122/67 (85) 92 NIV Bilevel 45.00 09/03/20 03:45 NIV Bilevel 45.00 09/03/20 03:00 122 20 106/73 (84) 91 NIV Bilevel 40.00 09/03/20 02:39 NIV Bilevel 40.00 09/03/20 02:00 92 30 96/70 (79) 91 NIV Bilevel 50.00 09/03/20 01:15 NIV Bilevel 50.00 09/03/20 01:04 104 29 95 60.00 09/03/20 01:00 109 09/03/20 01:00 109 39 105/74 (84) 93 Vapotherm 40.00 100.00 09/03/20 00:49 97 Vapotherm 40.00 100 09/03/20 00:00 112 19 104/73 (83) 96 Vapotherm 40.00 100.00 09/03/20 00:00 Vapotherm 40.00 100 09/02/20 23:59 36.1 09/02/20 23:52 98 35 108/71 (83) 97 Vapotherm 40.00 100.00 09/02/20 22:07 97 Vapotherm 40.00 100 09/02/20 22:05 114 14 115/81 (92) 98 Vapotherm 40.00 100.00 09/02/20 21:00 115 20 130/92 (105) 94 Vapotherm 40.00 100.00 09/02/20 20:05 Vapotherm 40.00 100.00 09/02/20 20:00 Vapotherm 40.00 100 09/02/20 20:00 105 116/91 (99) NIV Bilevel 60.00 09/02/20 19:40 36.2 09/02/20 19:04 101 29 95 60.00 09/02/20 19:02 101 22 140/84 (102) 93 NIV Bilevel 60.00 09/02/20 19:00 110 09/02/20 19:00 NIV Bilevel 60.00 09/02/20 17:33 Vapotherm 40.00 100.00 09/02/20 16:00 86 28 97 NIV Bilevel 40.00 09/02/20 16:00 36.7 09/02/20 14:42 100 Vapotherm 40.00 100 09/02/20 13:00 88 09/02/20 12:00 87 21 140/83 (102) 99 NIV Bilevel 40.00 09/02/20 11:49 36.7 I & O 09/03/20 07:00 Intake Total 1145 ml Output Total 2200 ml Balance -1055 ml Height & Weight Height: 5'11.00" Weight: 251lbs. 0.8oz. 112.082800rm; 30.77 BMI Method:Stated General Appearance: No Apparent Distress, Other (on vapotherm- looks more fatigued/worn compared to yesterday) HEENT: Normal ENT Inspection, Other (serosanguinous fluid in tube) Neck: Full Range of Motion Respiratory: Decreased Breath Sounds Cardiovascular: Regular Rate, Rhythm, Systolic Murmur Capillary Refill: Less Than 3 Seconds Gastrointestinal: normal bowel sounds, soft Extremity: Non Tender, No Calf Tenderness, No Pedal Edema Neurologic/Psychiatric: Alert, Oriented x3 Skin: Warm/Dry Results Lab Laboratory Tests 09/02/20 04:02 09/03/20 04:20 Assessment/Plan Assessment/Plan (Tele-ICU Physician , Progress Note ) Available chart/ vitals / labs / Images reviewed Video assessment done using teleICU camera, rest of exam as per RN Discussed with RN Events overnight : Afebrile hemodynamically stable, no pressors, I/O =neg 600 Drips: d5W As per RN exam : sedated , follow commands last night Consultants: Hospital course: 08/23 WITH SOB AND HEMOPTYSIS AND HYPOXIC ON CHRONIC 6L o2- > bipap 24/07 50% 08/24 intubated - 500, FiO2 40%, respiratory rate 25 and a PEEP of 8. 08/27 - AC 25 - 500 - 35 % FiO2 with a PEEP of 8 pap 35 08/28- fio2 80 % with cough 08/29 - extubated 08/30 -on Bipap 22/11 rr 38 60% 08/31 VAPOTHERM 40 l 70 % 08/31 - AFIB RVR 09/03 - DNR, refusing BIPAP, Vapotherm 40L 90% A/P Acute on chronic resp failure- hypoxic and hypercarbic respiratory failure secondary to underlying emphysema, ILD and possibly superimposed pneumonia - extubated 08/30, on BIPAP today 22/11 rr 38 60% - DIURESIS now ( monitor with PULM HTN PNA - sputum + for PSA - stop vanco ( 5d ) TODAY LAST DAY OF cefepime 08/30 - covis swab (-)ve - 09/03 - rising WBC , cxr same shock - off levo - stress dose steroids SC 50 q 12 08/24 - cont to decrease slowly ( on chronic prednisone ) COPD - last CT chest 06/2020 with severe emphysematous changes upper lobes , chronic plural scarring , some fibrotic changes - on chronic prednisone Severe pulm HTN , most likely due to lung DZ , RVSP 65mm Hg by ECHO - on sildenafil on hold now , monitor volume status carefully , STOP IVF Hemoptysis - due to combination of infection and coagulopathy in face of pHTN - monitor - minimal now - will start proph lovenox Anemia stable ECHO 12/2019 - EF 55%, PAF , s/p ablation/ cardioversion - sinus now - on AC with Xarelto , and with INR 1.9 on admission - on hold A fib RVR 08/31- adenosin , amio - dig, cardizem po - lovenox sc propf started 08/27 - RESUMING AC PER CARDS DM - ISS , as per PCP Rising NA low glucose and high NA - start d5w NEEDS SWALLOW EVAL , PT AND NUTRITION ADRESSED TODAY Lines R IJ : , (Central Line Necessity Reviewed) Vivas: + OG: + Nutrition: TF Analgesia: NA Anxiety/ delirium VTE Prophylaxis: starting 08/27 Stress Ulcer Prophylaxis: ppi Glycemic Control: + Plans in collaboration with bedside consultants and IM MDs. Discussed with RN to reach out if any questions or concerns A total of 36 minutes of critical care time was devoted to this patient today, required to treat and/or prevent further deterioration of critical care condition ( as above ) . CASSIA WEST MD Sep 03, 2020 11:39
--- NOTE | 2020-09-03 15:30 | Physical Therapy Daily Note ---
PT Daily Note-Current Subjective Patient lying supine in bed upon PT arrival. Agreeable to treatment. Patient received therapeutic activity as Co-treatment with OT as patients current level of function necessitates treatment from 2 disciplines to ensure patient safety and to promote the best care practice. Pain Numeric Pain Scale: 0-No Pain Transfers SCALE: Activities may be completed with or without assistive devices. 4-Gbpdlatiwy-xhdqqfi completes the activity by him/herself with no assistance from a helper. 5-Set-up or Clean-up Assistance-helper sets up or cleans up; patient completes activity. [place] assists only prior to or following the activity. 4-Supervision or Touching Assistance-helper provides verbal cues and/or touching/steadying and/or contact guard assistance as patient completes activity. Assistance may be provided throughout the activity or intermittently. 3-Partial/Moderate Assistance-helper does LESS THAN HALF the effort. [place] lifts, holds or supports trunk or limbs, but provides less than half the effort. 2-Substantial/Maximal Assistance-helper does MORE THAN HALF the effort. [place] lifts or holds trunk or limbs and provides more than half the effort. 8-Fmlomxiqj-apxynb does ALL the effort. Patient does none of the effort to complete the activity. Or, the assistance of 2 or more helpers is required for the patient to complete the activity. If activity was not attempted, code reason: 7-Patient Refused. 9-Not Applicable-not attempted and the patient did not perform the activity before the current illness, exacerbation or injury. 10-Not Attempted due to Environmental Limitations-(lack of equipment, weather restraints, etc.). 88-Not Attempted due to Medical Conditions or Safety Concerns. Roll Left & Right (QC): 2 Sit to Lying (QC): 2 Lying to Sitting/Side of Bed(Q: 2 Gait Training Does the Patient Walk?: No and Walking Goal IS indicated Wheelchair Training Does the Pt Use a Wheelchair?: No Exercises Supine Ex: Ankle pumps, Quad Set, Glut sets, Heel Slides, Short Arc Quads, Straight leg raise, Hip abd/add Supine Reps: 20 Assessment Current Status: Fair Progress Patient lying supine in bed upon PT arrival, agreeable to treatment. Son leaving upon arrival of therapy, comes into the room shortly after therapy treatment begins. Patient transferred to [facility] with max A of PT and OT. PT then stabilized patient as OT worked on ADLs. Patient was then transferred to bed with max A x 2. Patient then performed LE therapeutic exercise as listed above with AAROM/AROM and gentle overpressure with skilled Physical therapy intervention. Patient in bed post treatment with all needs met, nursing notified, call light in reach, in the room. PT Animal Surgeon Goals Long-Term Goals PT Long-Term Goals Time Frame: Sep 07, 2020 Roll Left & Right (QC): 3 Sit to Lying (QC): 3 Lying-Sitting on Side/Bed(QC): 3 Sit to Stand (QC): 3 Chair/Cvb-ji-Yuttm Xfer(QC): 3 PT Plan Treatment/Plan Treatment Plan: Continue Plan of Care Treatment Plan: Bed Mobility, Education, Functional Activity Soren, Functional Strength, Gait, Safety, Therapeutic Exercise, Transfers Treatment Duration: Sep 07, 2020 Frequency: 6 times per week Estimated Hrs Per Day: .25 hour per day Patient and/or Family Agrees t: Yes Safety Risks/Education Patient Education: Transfer Techniques, Safety Issues Teaching Recipient: Patient, Family Teaching Methods: Demonstration, Discussion Response to Teaching: Verbalize Understanding, Return Demonstration Time/GCodes Time In: 1436 Time Out: 1520 Total Billed Treatment Time: 44 Total Billed Treatment Therapeutic exercise, therapeutic activity, (15 minutes) OT co-treat CJ COLMENARES PT Sep 03, 2020 15:30
--- NOTE | 2020-09-03 15:37 | Occupational Ther Daily Note ---
OT Current Status-Daily Note Subjective No pain reported. Appearance Pt. in bed. Alert and oriented. Agrees to work with therapy. Mental Status/Objective Patient Orientation: Person, Place, Time, Situation Attachments: IV, Oxygen (vapotherm), Telemetry ADL-Treatment Therapy Code Descriptions/Definitions Functional [place] Measure: 0=Not Assessed/NA 4=Minimal Assistance 1=Total Assistance 5=Supervision or Setup 2=Maximal Assistance 6=Modified [place] 3=Moderate Assistance 7=Complete IndependenceSCALE: Activities may be completed with or without assistive devices. 0-Veexfkukwb-hewiobg completes the activity by him/herself with no assistance from a helper. 5-Set-up or Clean-up Assistance-helper sets up or cleans up; patient completes activity. [place] assists only prior to or following the activity. 4-Supervision or Touching Assistance-helper provides verbal cues and/or touching/steadying and/or contact guard assistance as patient completes activity. Assistance may be provided throughout the activity or intermittently. 3-Partial/Moderate Assistance-helper does LESS THAN HALF the effort. [place] lifts, holds or supports trunk or limbs, but provides less than half the effort. 2-Substantial/Maximal Assistance-helper does MORE THAN HALF the effort. [place] lifts or holds trunk or limbs and provides more than half the effort. 9-Fflyrcmvy-qqbgil does ALL the effort. Patient does none of the effort to comp lete the activity. Or, the assistance of 2 or more helpers is required for the patient to complete the activity. If activity was not attempted, code reason: 7-Patient Refused. 9-Not Applicable-not attempted and the patient did not perform the activity before the current illness, exacerbation or injury. 10-Not Attempted due to Environmental Limitations-(lack of equipment, weather restraints, etc.). 88-Not Attempted due to Medical Conditions or Safety Concerns. Other Treatment Pt. seen this date for co-treatment with PT/OT due to need of skilled assistance x 2 due to low endurance and strength. PT facilitated transfers and mobility while OT worked on ADL skills. Pt. required max x 2 for supine-sit. Pt. able to sit EOB with min/CGA for stability. Cues for deep breathing. PT facilitated upright posture and balance seated while OT placed brush in hand and facilitated pt. bringing hand up to head to brush his hair. Pt. does bring brush up slightly, and is able to "dab" at front part of head. He fatigues quickly, and so OT brushes hair for him. Therapy continues to monitor oxygen saturations while pt. seated. Pt. on vapotherm. Sats range 81-89%. Pt. sits approximately 5 minutes, and therapy transfers sit-supine with max x 2. Bed mobility completed with dependent assistance x 2. HOB elevated, and PT stays in room with pt. to work on LE mobility and to continue monitoring pt's saturations. All needs met. Education OT Patient Education: Correct positioning, Modified ADL techniques, Progress toward Goal/Update tx plan, Purpose of tx/functional activities, Reviewed precautions, Rehab process, Transfer techniques Teaching Recipient: Patient, Family Teaching Methods: Demonstration, Discussion OT Service Shop Foreman Goals Service Shop Foreman Goals Time Frame: Sep 07, 2020 Eating (QC): 4 Oral Hygiene (QC): 4 Toileting Hygiene (QC): 2 Shower/Bathe Self (QC): 2 Upper Body Dressing (QC): 3 Lower Body Dressing (QC): 2 On/Off Footwear (QC): 2 Additional Goals: 1-Demonstrate ADL Tasks, 2-Verbalize Understanding, 3- ImproveStrength/Soren 1=Demonstrate adherence to instructed precautions during ADL tasks. 2=Patient will verbalize/demonstrate understanding of assistive devices/modifications for ADL. 3=Patient will improve strength/tolerance for activity to enable patient to perform ADL's. OT Education/Plan Problem List/Assessment Assessment: Decreased Activ Tolerance, Decreased UE Strength, Dependent Transfers, Impaired Bed Mobility, Impaired Funct Balance, Impaired I ADL's, Impaired Self-Care Skills, Restricted Funct UE ROM Discharge Recommendations Plan/Recommendations: Continue POC Therapy Discharge Recommendati: Post Acute OT Treatment Plan/Plan of Care Treatment,Training & Education: Yes Patient would benefit from OT for education, treatment and training to promote independence in ADL's, mobility, safety and/or upper extremity function for ADL's. Plan of Care: ADL Retraining, Caregiver Training, Functional Mobility, Orthotic Fitting/Training, UE Funct Exercise/Act, UE Neuromus Re-Ed/Coord, W/C Management Training Treatment Duration: Sep 07, 2020 Frequency: 5 times per week Estimated Hrs Per Day: .25 hour per day Agreement: Yes Rehab Potential: Guarded Time/GCodes Start Time: 14:45 Stop Time: 14:55 Total Time Billed (hr/min): 10 Billed Treatment Time 1, FA LEONIDES GARCIA OT Sep 03, 2020 15:37
--- NOTE | 2020-09-03 16:21 | Consultation-Cardiology ---
HPI-Cardiology Cardiology Consultation: Date of Consultation 09/03/20 Time Seen by a Provider: 09:15 Date of Admission Attending Physician eBlen Mauricio DO Admitting Physician Lisa Pruitt MD Consulting Physician ENE NEAL MD, MA, FACP, FACC, FSCAI, CCDS HPI: Chief Complaint: Reason for consultation: A Fib with RVR HPI 80 yo man who has had a relatively long hospitalization for ac resp failure that has also required mech vent. He is off vent. Notes mild to mod shortness of breath, but feels improved from before. Denies cp or palp or syncope. Has gen malaise and weakness. Denies syncope. Denies swelling. Review of Systems-Cardiology Review of Systems Constitutional: malaise, tiredness Eyes: No vision change Ears/Nose/Throat: No ear discharge, No nasal drainage, No recent hearing loss Respiratory: As described under HPI Cardiovascular: As described under HPI Gastrointestinal: No diarrhea, No nausea, No vomiting Genitourinary: No dysuria, No hematuria, No urine frequency changes Musculoskeletal: back pain (chronic) Skin: No rash, No ulcerations Psychiatric/Neurological: No seizure, No focal weakness, No syncope Hematologic: No bleeding abnormalities All Other Systems Reviewed Negative Unless Noted: Yes [id number] Hx Patient Social History Marrital Status: Smoking Status: Former Smoker Former smoker/When Quit: Feb 09, 1999 2nd Hand Smoke Exposure: Yes Have you traveled recently?: No Alcohol Use?: No Pt feels they are or have been: No Immunizations Up To Date Tetanus Booster (TDap): Unknown Date of Pneumonia Vaccine: Apr 17, 2016 Date of Influenza Vaccine: Nov 10, 2019 Past Medical History PMH As described under Assessment. Family Medical History Family Medical History: Does not reprot fam h/o early CAD or SCD Allergies and Home Medications Allergies Coded Allergies: shellfish derived (Unverified Allergy, Severe, ANAPHYLAXIS, 02/18/19) meperidine (Unverified Allergy, Intermediate, LOW BP, N/V, 02/18/19) Home Medications Digoxin 125 Mcg Tablet, 125 MCG PO DAILY, (Reported) Last Action: Reviewed Diltiazem HCl 180 Mg Cap.er.24h, 180 MG PO DAILY, (Reported) Last Action: Reviewed Dronedarone HCl 400 Mg Tablet, 400 MG PO BID, (Reported) Last Action: Reviewed Fluticasone/Umeclidin/Vilanter 1 Each Blst.w.dev, 1 PUFF IH HS, (Reported) Last Action: Reviewed Gemfibrozil 600 Mg Tablet, 600 MG PO BID, (Reported) Last Action: Reviewed Montelukast Sodium 10 Mg Tablet, 10 MG PO HS, (Reported) Last Action: Reviewed Omeprazole 40 Mg Capsule.dr, 40 MG PO DAILY, (Reported) Last Action: Reviewed Pravastatin Sodium 20 Mg Tablet, 20 MG PO HS, (Reported) Last Action: Reviewed Rivaroxaban 20 Mg Tablet, 20 MG PO DAILY, (Reported) Last Action: Reviewed Spironolactone 25 Mg Tablet, 25 MG PO DAILY, (Reported) Last Action: Reviewed Tamsulosin HCl 0.4 Mg Cap, 0.4 MG PO DAILY, (Reported) Last Action: Reviewed Testosterone Cypionate 200 Mg/1 Ml Vial, 200 MG INJ EVERY 2 WEEKS, (Reported) Last Action: Reviewed Tramadol HCl 50 Mg Tablet, 50-100 MG PO QID PRN for PAIN-MODERATE, (Reported) Last Action: Continued Patient Home Medication List Home Medication List Reviewed: Yes Physical Exam-Cardiology Physical Exam Vital Signs/I&O 09/03/20 09/03/20 09/03/20 09/03/20 05:00 05:54 06:00 07:00 Pulse 75 81 83 Resp 11 25 B/P (MAP) 134/70 (91) 132/75 (94) Pulse Ox 95 91 O2 Delivery NIV Bilevel NIV Bilevel NIV Bilevel O2 Flow Rate 45.00 40.00 40.00 09/03/20 09/03/20 09/03/20 09/03/20 07:00 07:02 07:07 07:35 Temp 36.6 Pulse 83 84 Resp 22 23 B/P (MAP) 139/84 (102) Pulse Ox 91 92 92 O2 Delivery NIV Bilevel NIV Bilevel O2 Flow Rate 40.00 40.00 09/03/20 09/03/20 09/03/20 09/03/20 07:51 08:00 08:02 08:20 Temp 36.6 Pulse 84 84 Resp 29 B/P (MAP) 140/86 (104) Pulse Ox 95 88 95 O2 Delivery Vapotherm NIV Bilevel Vapotherm O2 Flow Rate 40.00 40.00 40.00 90.00 FiO2 100 90 09/03/20 09/03/20 09/03/20 09/03/20 08:35 09:00 10:00 11:00 Pulse 86 86 87 Resp 29 20 19 B/P (MAP) 107/91 (96) 131/77 (95) 139/75 (96) Pulse Ox 79 92 97 O2 Delivery Vapotherm Vapotherm Vapotherm Vapotherm O2 Flow Rate 40.00 40.00 40.00 40.00 90.00 90.00 90.00 FiO2 100 09/03/20 09/03/20 09/03/20 09/03/20 11:15 11:56 12:00 13:00 Temp 37.4 Pulse 76 80 Resp 15 B/P (MAP) 138/74 (95) Pulse Ox 97 97 O2 Delivery Vapotherm Vapotherm O2 Flow Rate 40.00 40.00 90.00 FiO2 100 09/03/20 14:42 Pulse Ox 93 O2 Delivery Vapotherm O2 Flow Rate 40.00 FiO2 100 09/03/20 00:00 Intake Total 820 ml Output Total 1150 ml Balance -330 ml Capillary Refill : Less Than 3 Seconds Constitutional: AAO x 3, other (thin-appearing) HEENT: PERRL; No xanthelasmas are seen Neck: carotid pulses are 2 + bilaterally Respiratory: No accessory muscle use; other (Fair, bilat air entry, diminished at the bases; prolonged exp) Cardiovascular: irregularly irregular, S1 and S2, systolic murmur (soft BALTAZAR at card base) Gastrointestinal: No tender; soft; No guarding, No rebound; audible bowel sounds Extremities: No clubbing, No cyanosis, No significant edema Neurologic/Psychiatric: oriented x 3, other (moves all limbs equally) Skin: warm/dry; No rash on exposed areas, No ulcerations on exposed areas Lymphatic: no adenopathy (neck, axilla or groin) Data Review Labs Laboratory Tests 09/02/20 20:04: Glucometer 109 09/03/20 04:20: White Blood Count 12.1H, Red Blood Count 3.57L, Hemoglobin 10.8L, Hematocrit 35L , Mean Corpuscular Volume 99, Mean Corpuscular Hemoglobin 30, Mean Corpuscular Hemoglobin Concent 31L, Red Cell Distribution Width 16.1H, Platelet Count 230, Mean Platelet Volume 10.2, Immature Granulocyte % (Auto) 1, Neutrophils (%) (Auto) 84H, Lymphocytes (%) (Auto) 7L, Monocytes (%) (Auto) 7, Eosinophils (%) (Auto) 1, Basophils (%) (Auto) 0, Neutrophils # (Auto) 10.2H, Lymphocytes # (Auto) 0.8L, Monocytes # (Auto) 0.8, Eosinophils # (Auto) 0.1, Basophils # (Auto) 0.0, Immature Granulocyte # (Auto) 0.1, Sodium Level 145, Potassium Level 3.7, Chloride Level 110H, Carbon Dioxide Level 26, Anion Gap 9, Blood Urea Nitrogen 20H, Creatinine 0.75, Estimat Glomerular Filtration Rate 101, BUN/Creatinine Ratio 27, Glucose Level 100, Calcium Level 8.7, Phosphorus Level 2.8, Magnesium Level 2.2 09/03/20 10:59: Glucometer 120H 09/03/20 15:23: Glucometer 117H Microbiology 08/26/20 Gram Stain - Final, Complete 08/26/20 Sputum Culture - Final, Complete Pseudomonas aeruginosa Usual upper respiratory tristan 08/23/20 Blood Culture - Final, Complete No growth A/P-Cardiology Assessment/Admission Diagnosis Ac respiratory failure, admitted on 08-23-20 Pulmonary disease, including ILD and emphysema and h/o sleep apnea (treated with CPAP), associated with pulm htn - Echo of 12/26/19: LVEF 55-65%, mild to mod LA enlargement, mild MS with valve area appprox 1.6 sq cm, mod to sev TR, PASP 60-65 mmHg History of mitral valve repair with annuloplasty ring placement done [place] [address] Dean, - last echocardiogram was done in December [address] Nur (see above) Paroxysmal atrial fibrillation with RVR. - Had ablation done in April [address] Pratt, had episode of atrial flutter with rapid ventricular response, electrical cardioversion in December 2019, went back to atrial flutter which appeared to be at left atrial origin with 2-1 conduction. - maintained on Multaq as an outpatient - History of intolerance to amiodarone with his underlying lung condition - intolerance to higher dose of sotalol with prolonged QT interval - started back on Multaq and Cardizem - [id number] score is 3, yearly risk of stroke without oral anticoagulation is 3.2 percent - Prior to hospital admission had been on Xarelto for stroke prophylaxis - currently not taking Transient episode of nonsustained ventricular tachycardia occurred in the preoperative area in [facility] on November 01, 2014, evaluated by his own geological drafter Dr. Ibrahim at [facility], had ablation with Dr Pratt in April 2019 Hypertension Hyperlipidemia Hemochromatosis- followed by Dr. Lynn. History of heart catheterization done in 2009 and reported to have no significant obstructive disease in his coronaries Diabetes mellitus, controlled by diet, followed and managed by primary care physician Sjogern syndrome, fibromyalgia, spinal stenosis, osteoporosis, osteoarthritis, left elbow ulnar nerve release, carpal tunnel release, bilateral inguinal hernia repair Nonobstructive carotid artery stenosis-most recent carotid duplex done January [address] Nur Discussion and Recomendations * Increase dig * Monitor dig level * Continue diltiazem * Oral apixaban for stroke prophylaxis if approved by the Med Svce. D/c enoxaparin if starting apixaban * Monitor labs * I answered his and his 's CV-related questions ENE NEAL MD FACP FAC CCDS Sep 03, 2020 16:21
[2020-09-03] MEDS: APIXABAN 5 MG (ELIQUIS) TABLET PO SCH (21:04)
[2020-09-03] MEDS: ZOLPIDEM 5 MG (AMBIEN) TAB PO SCH (21:04)
[2020-09-03 21:43] VITALS: BP 145/84
[2020-09-04] MEDS: RT-ALBUTEROL/IPRATROPIUM 3 ML (DUONEB) VIAL INH SCH ×6 (02:33→21:35)
[2020-09-04 02:34] VITALS: BP 152/91
[2020-09-04 03:14] LABS: POTASSIUM 3.7 MMOL/L (3.6-5.0)
[2020-09-04 03:15] LABS: CALCIUM 8.8 MG/DL (8.5-10.1)
[2020-09-04 03:20] LABS: CREATININE SERUM 0.7 MG/DL (0.60-1.30); PHOSPHORUS 2.6 MG/DL (2.3-4.7)
[2020-09-04] MEDS: POTASSIUM CL 10MEQ/50ML IVPB 50 ML IV SCH (04:50)
[2020-09-04] MEDS: inSUlin ASPART (NovoLOG) 1 UNIT/0.01 ML (CHARGE PER UNIT) SC SCH ×4 (04:51→21:00)
[2020-09-04] MEDS: KCL 20 MEQ TAB (K-DUR) PO SCH (04:51)
[2020-09-04] MEDS: MAGNESIUM 1 GM/100 ML IVPB 100 ML IV SCH (04:51)
[2020-09-04] MEDS: dilTIAZem DRIP PRE-MIX 125 ML IV SCH (05:44)
[2020-09-04] MEDS ORDERED: WATER (STERILE) FOR INJECTION 10 ML ONE (08:11)
[2020-09-04] MEDS: acetaZOLAMIDE INJ 500 MG/5 ML (DIAMOX) VIAL IV SCH (08:19)
[2020-09-04] MEDS: PANTOPRAZOLE 40 MG (PROTONIX) VIAL IV SCH (08:20)
[2020-09-04] MEDS: HYDROCORTISONE 100 MG/2 ML (Solu-CORTEF) VIAL IV SCH (08:20)
[2020-09-04] MEDS: APIXABAN 5 MG (ELIQUIS) TABLET PO SCH ×2 (08:20→19:28)
[2020-09-04] MEDS: DIGOXIN 0.25 MG (LANOXIN) TAB PO SCH (08:20)
[2020-09-04] MEDS: DRONEDARONE TABLET 400 MG TABLET PO SCH ×2 (08:20→19:27)
--- NOTE | 2020-09-04 08:58 | Progress Note ---
Subjective Subjective Date Seen by Provider: Sep 04, 2020 Time Seen by Provider: 08:40 PT IS A 80 Y/O MALE WHO IS KNOWN TO ME FROM CLINIC. 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 PT'S SON WOULD LIKE TO CONSIDER TRACHEOSTOMY WITH AT HOME VENTILATION IF POSSIBLE, HE DISCUSSED IT WITH HIS DAD LAST NIGHT AND WE DISCUSSED IT AGAIN TODAY. FOSTEROLL REPORTS THAT HE THINKS QUALITY OF LIFE IS BEING ABLE TO WAKE-UP EVERY DAY KNOWING HE MAY WAKE UP AGAIN TOMORROW AND BE ABLE TO SPEND TIME WITH HIS FAMILY. Review of Systems General: No Chills, No Night Sweats; Fatigue, Malaise HEENT: No Head Aches Pulmonary: Dyspnea, Cough; No Pleuritic Chest Pain Cardiovascular: No: Chest Pain, Palpitations Gastrointestinal: No: Nausea, Vomiting Genitourinary: No Dysuria Musculoskeletal: No: other Neurological: Weakness All Other Systems Reviewed All Other Systems Reviewed: Yes Objective Exam Vital Signs Vital Signs Date Time Temp Pulse Resp B/P (MAP) Pulse Ox O2 Delivery O2 Flow Rate FiO2 09/04/20 08:40 Vapotherm 40.00 100.00 09/04/20 08:08 35.6 09/04/20 06:00 87 148/87 (107) 94 NIV Bilevel 50.00 09/04/20 05:00 87 144/89 (107) 91 NIV Bilevel 50.00 09/04/20 04:00 36.0 09/04/20 04:00 90 147/90 (109) 90 NIV Bilevel 50.00 09/04/20 04:00 NIV Bilevel 50 09/04/20 03:00 88 156/91 (112) 94 NIV Bilevel 50.00 09/04/20 02:34 87 24 92 50.00 09/04/20 02:00 87 17 142/88 (106) 95 NIV Bilevel 50.00 09/04/20 01:00 88 25 155/85 (108) 94 NIV Bilevel 50.00 09/04/20 01:00 88 09/04/20 00:00 NIV Bilevel 50 09/04/20 00:00 96 138/82 (99) 92 NIV Bilevel 50.00 09/04/20 00:00 36.4 09/03/20 23:00 88 17 146/95 (113) 91 NIV Bilevel 50.00 09/03/20 22:30 94 NIV Bilevel 50.00 09/03/20 22:00 91 140/87 (104) 92 Vapotherm 40.00 90.00 09/03/20 21:43 91 26 96 40.00 09/03/20 21:33 93 Vapotherm 40.00 100 09/03/20 21:00 96 133/80 (100) Vapotherm 40.00 90.00 09/03/20 20:00 Vapotherm 40.00 100 09/03/20 20:00 102 19 135/89 (98) 94 Vapotherm 40.00 90.00 09/03/20 19:21 36.7 09/03/20 19:00 86 09/03/20 19:00 85 39 142/83 (101) 91 Vapotherm 40.00 90.00 09/03/20 18:45 91 Vapotherm 40.00 100 09/03/20 18:00 77 22 149/82 (104) 96 Vapotherm 40.00 90.00 09/03/20 17:00 Vapotherm 40.00 90 09/03/20 17:00 80 20 146/86 (106) 94 Vapotherm 40.00 90.00 09/03/20 16:00 36.8 09/03/20 16:00 85 25 143/81 (101) 86 Vapotherm 40.00 90.00 09/03/20 15:00 90 18 135/76 (95) 88 Vapotherm 40.00 90.00 09/03/20 14:42 93 Vapotherm 40.00 100 09/03/20 14:00 81 20 89 Vapotherm 40.00 90.00 09/03/20 13:00 80 09/03/20 13:00 73 37 123/76 (92) 96 Vapotherm 40.00 90.00 09/03/20 12:00 76 15 138/74 (95) 97 Vapotherm 40.00 90.00 09/03/20 11:56 97 Vapotherm 40.00 100 09/03/20 11:15 37.4 09/03/20 11:00 87 19 139/75 (96) 97 Vapotherm 40.00 90.00 09/03/20 10:00 86 20 131/77 (95) 92 Vapotherm 40.00 90.00 09/03/20 09:00 86 29 107/91 (96) 79 Vapotherm 40.00 90.00 I & O 09/04/20 07:00 Intake Total 855 ml Output Total 3050 ml Balance -2195 ml General Appearance: WD/WN, Chronically ill, Mild Distress Eyes: Bilateral Eye PERRL, Bilateral Eye EOMI HEENT: PERRL/EOMI, Normal ENT Inspection, Other (DRY MOUTH) Neck: Full Range of Motion Respiratory: Decreased Breath Sounds Cardiovascular: Regular Rate, Rhythm, Systolic Murmur Gastrointestinal: Normal Bowel Sounds, Non Tender, Soft Extremity: Non Tender, No Calf Tenderness, No Pedal Edema Neurologic/Psychiatric: Alert, Oriented x3, Normal Mood/Affect Skin: Normal Color, Warm/Dry Results Lab Laboratory Tests 09/03/20 10:59: Glucometer 120H 09/03/20 15:23: Glucometer 117H 09/03/20 20:24: Glucometer 91 09/04/20 02:59: Sodium Level 147H, Potassium Level 3.7, Chloride Level 113H, Carbon Dioxide Level 23, Anion Gap 11, Blood Urea Nitrogen 19H, Creatinine 0.70, Estimat Glomerular Filtration Rate 109, BUN/Creatinine Ratio 27, Glucose Level 128H, Calcium Level 8.8, Phosphorus Level 2.6, Magnesium Level 2.0, Digoxin Level 0.71L Microbiology 08/26/20 Gram Stain - Final, Complete 08/26/20 Sputum Culture - Final, Complete Pseudomonas aeruginosa Usual upper respiratory tristan 08/23/20 Blood Culture - Final, Complete No growth Assessment/Plan Assessment/Plan Admission Dx ACUTE RESPIRATORY FAILURE MULTILOBAR PNEUMONIA SEVERE EMPHYSEMA INTERSTITIAL LUNG DISEASE SUPRAVENTRICULAR TACHYCARDIA HX OF PAROXYSMAL ATRIAL FIBRILLATION LEUKOCYTOSIS Assessment and Plan ACUTE RESPIRATORY FAILURE MULTILOBAR PNEUMONIA 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 - PT IS AT VERY HIGH RISK OF DECLINE. - DISCUSSED WITH PT'S SON, HE WOULD LIKE TO CONSIDER TRACHEOSTOMY WITH AT- HOME VENTILATION - - CONSULT TO [facility] - WILL NEED TO CONSIDER HOSPICE AN ALTERNATIVE TO [facility]. - I HAD A DISCUSSION WITH FAM CURTIS - HIS SON AND WE DISCUSSED JESSICA'S LIFE EXPECTANCY IF HE WERE TO GO HOME AT HIS PRESENT LEVEL OF HEALTH, AND THE POSSIBILITY OF [facility] GETTING JESSICA TO A POINT IN HIS RECOVERY THAT HE CAN GET OFF OF VAPOTHERM AND ONTO HIGH FLOW OXYGEN VERSUS A TRACHEOSTOMY AND THE LEVEL OF CARE THAT WOULD REQUIRE AT HOME. THE FAMILY WOULD LIKE TO AVOID A RETIREMENT SINCE THAT IS WHAT JESSICA DESIRES. MULTILOBAR PNEUMONIA - RECENTLY ON IV ANTIBIOTICS, MONITOR SYMPTOMS. - WHITE COUNT INCREASED FROM 12 TO 20 - START ON ZOSYN TODAY. SEVERE EMPHYSEMA - SUPPORTIVE CARE INTERSTITIAL LUNG DISEASE - CHRONIC AND PROGRESSIVE SUPRAVENTRICULAR TACHYCARDIA WITH HX OF PAROXYSMAL ATRIAL FIBRILLATION - PT ON IV CARDIZEM, ORAL CARDIZEM - CONSULT TO CARDIOLOGY - PLACED ON 09/04/2020 - RESTARTED BLOOD THINNERS WEAKNESS - WILL NEED THERAPY WHEN ABLE TO PARTICIPATE HYPERNATREMIA - START ON D5W AT 50ML/HR DRY MOUTH - REJI RONDON MD Sep 04, 2020 08:58
--- NOTE | 2020-09-04 09:01 | Progress Note - Cardiology ---
Cardiology SOAP Progress Note Subjective: Sitting up in bed States he feels better than yesterday No c/o CP Remains SOB Objective: I&O/Vital Signs Weight (Pounds): 251 Weight (Ounces): 0.8 Weight (Calculated Kilograms): 112.280132 Constitutional: AAO x 3, other (thin-appearing) Respiratory: No accessory muscle use; other (Fair, bilat air entry, diminished at the bases; prolonged exp; dyspneic with conversation; freq non-productive cough) Cardiovascular: irregularly irregular, S1 and S2, systolic murmur (soft BALTAZAR at card base) Gastrointestional: No tender; soft; No guarding, No rebound; audible bowel sounds Extremities: No clubbing, No cyanosis, No significant edema Neurologic/Psychiatric: oriented x 3, other (moves all limbs equally) Skin: warm/dry; No rash on exposed areas, No ulcerations on exposed areas Results/Procedures: Labs Laboratory Tests 09/05/20 11:06: Glucometer 107 Microbiology 08/26/20 Gram Stain - Final, Complete 08/26/20 Sputum Culture - Final, Complete Pseudomonas aeruginosa Usual upper respiratory tristan 08/23/20 Blood Culture - Final, Complete No growth A/P: Assessment: Ac respiratory failure, admitted on 08-23-20 Pulmonary disease, including ILD and emphysema and h/o sleep apnea (treated with CPAP), associated with pulm htn - Echo of 12/26/19: LVEF 55-65%, mild to mod LA enlargement, mild MS with valve area appprox 1.6 sq cm, mod to sev TR, PASP 60-65 mmHg History of mitral valve repair with annuloplasty ring placement done [place] [address] Dean, - last echocardiogram was done in December [address] Nur (see above) Paroxysmal atrial fibrillation with RVR. - Had ablation done in April [address] Pratt, had episode of atrial flutter with rapid ventricular response, electrical cardioversion in December 2019, went back to atrial flutter which appeared to be at left atrial origin with 2-1 conduction. - maintained on Multaq as an outpatient - History of intolerance to amiodarone with his underlying lung condition - intolerance to higher dose of sotalol with prolonged QT interval - started back on Multaq and Cardizem - [id number] score is 3, yearly risk of stroke without oral anticoagulation is 3.2 percent - Prior to hospital admission had been on Xarelto for stroke prophylaxis - currently not taking Transient episode of nonsustained ventricular tachycardia occurred in the preoperative area in [facility] on November 01, 2014, evaluated by his own landscape specialist Dr. Ibrahim at [facility], had ablation with Dr Pratt in April 2019 Hypertension Hyperlipidemia Hemochromatosis- followed by Dr. Lynn. History of heart catheterization done in 2009 and reported to have no significant obstructive disease in his coronaries Diabetes mellitus, controlled by diet, followed and managed by primary care physician Sjogern syndrome, fibromyalgia, spinal stenosis, osteoporosis, osteoarthritis, left elbow ulnar nerve release, carpal tunnel release, bilateral inguinal hernia repair Nonobstructive carotid artery stenosis-most recent carotid duplex done January [address] Nur Plan: * Increase dig * Monitor dig level * Continue diltiazem - transition from IV to oral * Oral apixaban for stroke prophylaxis has been started * Monitor labs KERRY ALVAREZ Sep 04, 2020 09:01
[2020-09-04] MEDS ORDERED: SALIVA STIMULANT MOUTH SPRAY (BIOTENE) 1.5 OZ MM PRN (09:30)
[2020-09-04] MEDS ORDERED: dilTIAZem120 MG (CARDIZEM CD) CAP PO ONE (09:45)
[2020-09-04 10:19] LABS: HEMATOCRIT 37 % (40-54); HEMOGLOBIN 11.4 g/dL (13.3-17.7); MEAN CORPUSCULAR HEMOGLOBIN 30 pg (25-34); MEAN CORPUSCULAR HGB CONC 31 g/dL (32-36); MEAN CORPUSCULAR VOLUME 100 fL (80-99); MEAN PLATELET VOLUME 10.6 fL (9.0-12.2); PLATELET COUNT 223 10^3/uL (130-400)
--- NOTE | 2020-09-04 11:52 | Progress Note - Cardiology ---
Cardiology SOAP Progress Note Subjective: Persistent weakness, shortness of breath, malaise No cp or palp or syncope Objective: I&O/Vital Signs 09/04/20 09/04/20 09/04/20 09/04/20 00:00 00:00 00:00 01:00 Temp 36.4 Pulse 96 88 B/P (MAP) 138/82 (99) Pulse Ox 92 O2 Delivery NIV Bilevel NIV Bilevel O2 Flow Rate 50.00 FiO2 50 09/04/20 09/04/20 09/04/20 09/04/20 01:00 02:00 02:34 03:00 Pulse 88 87 87 88 Resp 25 17 24 B/P (MAP) 155/85 (108) 142/88 (106) 156/91 (112) Pulse Ox 94 95 92 94 O2 Delivery NIV Bilevel NIV Bilevel NIV Bilevel O2 Flow Rate 50.00 50.00 50.00 50.00 09/04/20 09/04/20 09/04/20 09/04/20 04:00 04:00 04:00 05:00 Temp 36.0 Pulse 90 87 B/P (MAP) 147/90 (109) 144/89 (107) Pulse Ox 90 91 O2 Delivery NIV Bilevel NIV Bilevel NIV Bilevel O2 Flow Rate 50.00 50.00 FiO2 50 09/04/20 09/04/20 09/04/20 09/04/20 06:00 07:00 08:00 08:08 Temp 35.6 Pulse 87 85 B/P (MAP) 148/87 (107) Pulse Ox 94 O2 Delivery NIV Bilevel Vapotherm O2 Flow Rate 50.00 40.00 FiO2 100 09/04/20 09/04/20 08:40 10:33 Pulse Ox 93 O2 Delivery Vapotherm Vapotherm O2 Flow Rate 40.00 40.00 100.00 FiO2 95 09/04/20 00:00 Intake Total 430 ml Output Total 1075 ml Balance -645 ml Weight (Pounds): 251 Weight (Ounces): 0.8 Weight (Calculated Kilograms): 112.094801 Constitutional: AAO x 3, other (thin-appearing) Respiratory: No accessory muscle use; other (Fair, bilat air entry, diminished at the bases; prolonged exp; dyspneic with conversation; freq non-productive cough) Cardiovascular: irregularly irregular, S1 and S2, systolic murmur (soft BALTAZAR at card base) Gastrointestional: No tender; soft; No guarding, No rebound; audible bowel sounds Extremities: No clubbing, No cyanosis, No significant edema Neurologic/Psychiatric: oriented x 3, other (moves all limbs equally) Skin: warm/dry; No rash on exposed areas, No ulcerations on exposed areas Results/Procedures: Labs Laboratory Tests 09/03/20 15:23: Glucometer 117H 09/03/20 20:24: Glucometer 91 09/04/20 02:59: Sodium Level 147H, Potassium Level 3.7, Chloride Level 113H, Carbon Dioxide Level 23, Anion Gap 11, Blood Urea Nitrogen 19H, Creatinine 0.70, Estimat Glomerular Filtration Rate 109, BUN/Creatinine Ratio 27, Glucose Level 128H, Calcium Level 8.8, Phosphorus Level 2.6, Magnesium Level 2.0, Digoxin Level 0.71L 09/04/20 10:10: White Blood Count 20.0H, Red Blood Count 3.75L, Hemoglobin 11.4L, Hematocrit 37L , Mean Corpuscular Volume 100H, Mean Corpuscular Hemoglobin 30, Mean Corpuscular Hemoglobin Concent 31L, Red Cell Distribution Width 16.8H, Platelet Count 223, Mean Platelet Volume 10.6 09/04/20 10:55: Glucometer 115H Microbiology 08/26/20 Gram Stain - Final, Complete 08/26/20 Sputum Culture - Final, Complete Pseudomonas aeruginosa Usual upper respiratory tristan 08/23/20 Blood Culture - Final, Complete No growth Laboratory Tests 09/03/20 04:20 09/04/20 02:59 09/04/20 10:10 A/P: Assessment: Ac respiratory failure, admitted on 08-23-20 Pulmonary disease, including ILD and emphysema and h/o sleep apnea (treated with CPAP), associated with pulm htn - Echo of 12/26/19: LVEF 55-65%, mild to mod LA enlargement, mild MS with valve area appprox 1.6 sq cm, mod to sev TR, PASP 60-65 mmHg History of mitral valve repair with annuloplasty ring placement [place] [address] Dean, - last echocardiogram was done in December [address] Nur (see above) Paroxysmal atrial fibrillation with RVR. - Had ablation done in April [address] Pratt, had episode of atrial flutter with rapid ventricular response, electrical cardioversion in December 2019, went back to atrial flutter which appeared to be at left atrial origin with 2-1 conduction. - maintained on Multaq as an outpatient - History of intolerance to amiodarone with his underlying lung condition - intolerance to higher dose of sotalol with prolonged QT interval - started back on Multaq and Cardizem - [id number] score is 3, yearly risk of stroke without oral anticoagulation is 3.2 percent - Prior to hospital admission had been on Xarelto for stroke prophylaxis - currently not taking Transient episode of nonsustained ventricular tachycardia occurred in the preoperative area in [facility] on November 01, 2014, evaluated by his own customer experience analyst Dr. Ibrahim at [facility], had ablation with Dr Pratt in April 2019 Hypertension Hyperlipidemia Hemochromatosis- followed by Dr. Lynn. History of heart catheterization done in 2009 and reported to have no significant obstructive disease in his coronaries Diabetes mellitus, controlled by diet, followed and managed by primary care physician Sjogern syndrome, fibromyalgia, spinal stenosis, osteoporosis, osteoarthritis, left elbow ulnar nerve release, carpal tunnel release, bilateral inguinal hernia repair Nonobstructive carotid artery stenosis-most recent carotid duplex done January [address] Nru Plan: * Increase dig * Monitor dig level * Continue diltiazem - transition from IV to oral * Oral apixaban for stroke prophylaxis has been started * Monitor labs ENE NEAL MD [facility] Sep 04, 2020 11:52
--- NOTE | 2020-09-04 12:05 | Tele-ICU Progress Note ---
Subjective Date Seen by a Provider: Sep 04, 2020 Time Seen by a Provider: 12:05 Sepsis Event Evaluation Height, Weight, BMI Height: 5'11.00" Weight: 251lbs. 0.8oz. 112.134287wc; 30.77 BMI Method:Stated Exam Exam Patient acknowledged, consented, and participated in this virtual visit which was conducted using real time audio/video Vital Signs Date Time Temp Pulse Resp B/P (MAP) Pulse Ox O2 Delivery O2 Flow Rate FiO2 09/04/20 10:33 93 Vapotherm 40.00 95 09/04/20 08:40 Vapotherm 40.00 100.00 09/04/20 08:08 35.6 09/04/20 08:00 Vapotherm 40.00 100 09/04/20 07:00 85 09/04/20 06:00 87 148/87 (107) 94 NIV Bilevel 50.00 09/04/20 05:00 87 144/89 (107) 91 NIV Bilevel 50.00 09/04/20 04:00 36.0 09/04/20 04:00 90 147/90 (109) 90 NIV Bilevel 50.00 09/04/20 04:00 NIV Bilevel 50 09/04/20 03:00 88 156/91 (112) 94 NIV Bilevel 50.00 09/04/20 02:34 87 24 92 50.00 09/04/20 02:00 87 17 142/88 (106) 95 NIV Bilevel 50.00 09/04/20 01:00 88 25 155/85 (108) 94 NIV Bilevel 50.00 09/04/20 01:00 88 09/04/20 00:00 NIV Bilevel 50 09/04/20 00:00 96 138/82 (99) 92 NIV Bilevel 50.00 09/04/20 00:00 36.4 09/03/20 23:00 88 17 146/95 (113) 91 NIV Bilevel 50.00 09/03/20 22:30 94 NIV Bilevel 50.00 09/03/20 22:00 91 140/87 (104) 92 Vapotherm 40.00 90.00 09/03/20 21:43 91 26 96 40.00 09/03/20 21:33 93 Vapotherm 40.00 100 09/03/20 21:00 96 133/80 (100) Vapotherm 40.00 90.00 09/03/20 20:00 Vapotherm 40.00 100 09/03/20 20:00 102 19 135/89 (98) 94 Vapotherm 40.00 90.00 09/03/20 19:21 36.7 09/03/20 19:00 86 09/03/20 19:00 85 39 142/83 (101) 91 Vapotherm 40.00 90.00 09/03/20 18:45 91 Vapotherm 40.00 100 09/03/20 18:00 77 22 149/82 (104) 96 Vapotherm 40.00 90.00 09/03/20 17:00 Vapotherm 40.00 90 09/03/20 17:00 80 20 146/86 (106) 94 Vapotherm 40.00 90.00 09/03/20 16:00 36.8 09/03/20 16:00 85 25 143/81 (101) 86 Vapotherm 40.00 90.00 09/03/20 15:00 90 18 135/76 (95) 88 Vapotherm 40.00 90.00 09/03/20 14:42 93 Vapotherm 40.00 100 09/03/20 14:00 81 20 89 Vapotherm 40.00 90.00 09/03/20 13:00 80 09/03/20 13:00 73 37 123/76 (92) 96 Vapotherm 40.00 90.00 I & O 09/04/20 07:00 Intake Total 855 ml Output Total 3050 ml Balance -2195 ml Height & Weight Height: 5'11.00" Weight: 251lbs. 0.8oz. 112.771145um; 30.77 BMI Method:Stated General Appearance: No Apparent Distress, Other (on vapotherm- looks more fatigued/worn compared to yesterday) HEENT: Normal ENT Inspection, Other (serosanguinous fluid in tube) Neck: Full Range of Motion Respiratory: Decreased Breath Sounds Cardiovascular: Regular Rate, Rhythm, Systolic Murmur Capillary Refill: Less Than 3 Seconds Gastrointestinal: normal bowel sounds, soft Extremity: Non Tender, No Calf Tenderness, No Pedal Edema Neurologic/Psychiatric: Alert, Oriented x3 Skin: Warm/Dry Results Lab Laboratory Tests 09/03/20 04:20 09/04/20 02:59 7/27/21 10:10 Assessment/Plan Assessment/Plan (Tele-ICU Physician , Progress Note ) BEDSIDE RN IS NOT AVAILABLE TO DISCUSS PATIENT, A/P DONE BASED ON DATA ABAILABLE IN EMR AND VIDEO ASSESSMENT BY E-CAMERA. FINAL PLAN /DECISIONS ARE BY ROUNDING BEDSIDE PHYSICIANS Available chart/ vitals / labs / Images reviewed Video assessment done using teleICU camera Events overnight : Afebrile hemodynamically stable, no pressors, I/O =neg 1400 Drips: d5W As per RN exam : Consultants: luis angel Hospital course: 08/23 WITH SOB AND HEMOPTYSIS AND HYPOXIC ON CHRONIC 6L o2- > bipap 24/07 50% 08/24 intubated - 500, FiO2 40%, respiratory rate 25 and a PEEP of 8. 08/27 - AC 25 - 500 - 35 % FiO2 with a PEEP of 8 pap 35 08/28- fio2 80 % with cough 08/29 - extubated 08/30 -on Bipap 22/11 rr 38 60% 08/31 VAPOTHERM 40 l 70 % 08/31 - AFIB RVR 09/03 - DNR, refusing BIPAP, Vapotherm 40L 90% 09/04 - agreed for nocturnal BIPAP , tolerates A/P Acute on chronic resp failure- hypoxic and hypercarbic respiratory failure secondary to underlying emphysema, ILD and possibly superimposed pneumonia - extubated 08/30, on BIPAP today 22/11 rr 38 60% - DIURESIS now ( monitor with PULM HTN PNA - sputum + for PSA - stop vanco ( 5d ) TODAY LAST DAY OF cefepime 08/30 - covis swab (-)ve - 09/03 - rising WBC , cxr same shock - off levo - stress dose steroids SC 50 q 12 08/24 - cont to decrease slowly ( on chronic prednisone ) - CHANGE TO PO PREDNISONE 09/04 COPD - last CT chest 06/2020 with severe emphysematous changes upper lobes , chronic plural scarring , some fibrotic changes - on chronic prednisone Severe pulm HTN , most likely due to lung DZ , RVSP 65mm Hg by ECHO - on sildenafil on hold now , monitor volume status carefully , STOP IVF Hemoptysis - due to combination of infection and coagulopathy in face of pHTN - monitor - minimal now - eLIQUIS RESUMED 09.03 Anemia stable ECHO 12/2019 - EF 55%, PAF , s/p ablation/ cardioversion - A fib RVR 08/31 - sinus now -- RESUMING AC ELIQUIS 09/04 DM - ISS , as per PCP Rising NA low glucose and high NA - start d5w NEEDS SWALLOW EVAL , PT AND NUTRITION ADRESSED TODAY Lines R IJ : , (Central Line Necessity Reviewed) Vivas: + OG: + Nutrition: TF Analgesia: NA Anxiety/ delirium VTE Prophylaxis: starting 08/27 Stress Ulcer Prophylaxis: ppi Glycemic Control: + Plans in collaboration with bedside consultants and IM MDs. Discussed with RN to reach out if any questions or concerns A total of 28 minutes of critical care time was devoted to this patient today, required to treat and/or prevent further deterioration of critical care condition ( as above CASSIA WEST MD Sep 04, 2020 12:05
[2020-09-04] MEDS ORDERED: PHARMACY TO DOSE IV SCH (13:00)
[2020-09-04] MEDS: D5W 1000 ML IV SOLUTION 1,000 ML IV SCH (13:38)
--- NOTE | 2020-09-04 13:58 | Physical Therapy Daily Note ---
PT Daily Note-Current Subjective Patient in bed pre tx, agrees to PT, has O2 sat of 94%. Appearance Patient in bed post tx, with nurse call, phone, tray, nurse in room. Mental Status Patient Orientation: Person, Place, Situation Attachments: Oxygen (vapotherm), Vivas Catheter Transfers SCALE: Activities may be completed with or without assistive devices. 9-Gbngdnrazc-dwnpfwr completes the activity by him/herself with no assistance from a helper. 5-Set-up or Clean-up Assistance-helper sets up or cleans up; patient completes activity. [place] assists only prior to or following the activity. 4-Supervision or Touching Assistance-helper provides verbal cues and/or touching/steadying and/or contact guard assistance as patient completes activi ty. Assistance may be provided throughout the activity or intermittently. 3-Partial/Moderate Assistance-helper does LESS THAN HALF the effort. [place] lifts, holds or supports trunk or limbs, but provides less than half the effort. 2-Substantial/Maximal Assistance-helper does MORE THAN HALF the effort. [place] lifts or holds trunk or limbs and provides more than half the effort. 1-Iytaiuikq-klikbk does ALL the effort. Patient does none of the effort to complete the activity. Or, the assistance of 2 or more helpers is required for the patient to complete the activity. If activity was not attempted, code reason: 7-Patient Refused. 9-Not Applicable-not attempted and the patient did not perform the activity before the current illness, exacerbation or injury. 10-Not Attempted due to Environmental Limitations-(lack of equipment, weather restraints, etc.). 88-Not Attempted due to Medical Conditions or Safety Concerns. Roll Left & Right (QC): 2 Sit to Lying (QC): 1 Lying to Sitting/Side of Bed(Q: 1 Patient was able to sit on the side of the bed with assist of 2, O2 was 90% at the beginning of sitting, patient stood with max assist for about 20 seconds. After sitting back down his O2 was around 80%. It got back up to about 83% while still sitting but wasn't really going any higher. Patient was layed back down and performed purse lip breathing and O2 came up to 87% but it took a long time. Nurse in room to continue to work with patient after PT leaves. Exercises Seated Therapy Exercises: Long arc quads Seated Reps: 10 Treatments bed mobility, LE ROM, standing Assessment Current Status: Poor Progress severe drop in O2 with activity PT Synthetic Staple Extruder Goals Synthetic Staple Extruder Goals PT Synthetic Staple Extruder Goals Time Frame: Sep 07, 2020 Roll Left & Right (QC): 3 Sit to Lying (QC): 3 Lying-Sitting on Side/Bed(QC): 3 Sit to Stand (QC): 3 Chair/Rrq-zq-Nvnsg Xfer(QC): 3 PT Plan Problem List Problem List: Activity Tolerance, Functional Strength, Safety, Balance, Gait, Transfer, Bed Mobility, ROM Treatment/Plan Treatment Plan: Continue Plan of Care Treatment Plan: Bed Mobility, Education, Functional Activity Soren, Functional Strength, Gait, Safety, Therapeutic Exercise, Transfers Treatment Duration: Sep 07, 2020 Frequency: 6 times per week Estimated Hrs Per Day: .25 hour per day Patient and/or Family Agrees t: Yes Safety Risks/Education Patient Education: Correct Positioning, Safety Issues Teaching Recipient: Patient Teaching Methods: Demonstration, Discussion Response to Teaching: Reinforcement Needed Time/GCodes Time In: 1334 Time Out: 1350 Total Billed Treatment Time: 14 Total Billed Treatment 1 visit FA JODI WALLACE PT Sep 04, 2020 13:58
[2020-09-04] MEDS ORDERED: PIPERACILLIN/TAZO 4.5 GM/NS 100 ML IV NR ×2 (14:00)
--- NOTE | 2020-09-04 15:33 | Occupational Ther Daily Note ---
OT Current Status-Daily Note Subjective No pain reported. Appearance Pt. in bed supine. at bedside. Nursing okay for therapy to work with pt. 02 sats at 94% at beginning of treatment. Mental Status/Objective Patient Orientation: Person, Place Attachments: Vivas Catheter, IV, Oxygen, Telemetry ADL-Treatment Therapy Code Descriptions/Definitions Functional [place] Measure: 0=Not Assessed/NA 4=Minimal Assistance 1=Total Assistance 5=Supervision or Setup 2=Maximal Assistance 6=Modified [place] 3=Moderate Assistance 7=Complete IndependenceSCALE: Activities may be completed with or without assistive devices. 4-Yqsxawcbri-qucuqdz completes the activity by him/herself with no assistance from a helper. 5-Set-up or Clean-up Assistance-helper sets up or cleans up; patient completes a ctivity. [place] assists only prior to or following the activity. 4-Supervision or Touching Assistance-helper provides verbal cues and/or touching/steadying and/or contact guard assistance as patient completes activity. Assistance may be provided throughout the activity or intermittently. 3-Partial/Moderate Assistance-helper does LESS THAN HALF the effort. [place] lifts, holds or supports trunk or limbs, but provides less than half the effort. 2-Substantial/Maximal Assistance-helper does MORE THAN HALF the effort. [place] lifts or holds trunk or limbs and provides more than half the effort. 0-Mjrbwbxnm-umklmd does ALL the effort. Patient does none of the effort to complete the activity. Or, the assistance of 2 or more helpers is required for the patient to complete the activity. If activity was not attempted, code reason: 7-Patient Refused. 9-Not Applicable-not attempted and the patient did not perform the activity before the current illness, exacerbation or injury. 10-Not Attempted due to Environmental Limitations-(lack of equipment, weather restraints, etc.). 88-Not Attempted due to Medical Conditions or Safety Concerns. On/Off Footwear: 1 Toileting Hygiene (QC): 1 (pt. has catheter. Dependent per clinical judgement for all other [place] care needs.) Other Treatment PT/OT co-treated pt. due to need of skilled assistance x 2 for mobility and strengthening. Pt. supine with multiple lines and tubing. Nursing okay for therapy to work with pt. Pt. at 94% 02 sats. Pt. transferred supine-sit with max x 2. Sats dropped to 90%. Pt. sat with min assist for sitting balance EOB. PT facilitated upright posture while OT brushed pt's hair. Pt. encouraged to take deep breathes. Pt. stood with pt. with max assist needed of one person, and min assist of another person. Pt. stood briefly, and oxygen saturations dropped to 80%. Pt. sat back on bed and encouraged to breathe deep. Increased time for recovery. Pt. was laid down with max x 2. Dependent assist x 2 for bed mobility. Oxygen saturations increased slowly. Nursing assisting pt. and sats at 86% when therapy left room. All needs met. Education OT Patient Education: Correct positioning, Modified ADL techniques, Progress toward Goal/Update tx plan, Purpose of tx/functional activities, Reviewed precautions, Rehab process, Transfer techniques Teaching Recipient: Patient Teaching Methods: Demonstration, Discussion Response to Teaching: Verbalize Understanding, Return Demonstration OT Investment Fund Manager Goals Investment Fund Manager Goals Time Frame: Sep 07, 2020 Eating (QC): 4 Oral Hygiene (QC): 4 Toileting Hygiene (QC): 2 Shower/Bathe Self (QC): 2 Upper Body Dressing (QC): 3 Lower Body Dressing (QC): 2 On/Off Footwear (QC): 2 Additional Goals: 1-Demonstrate ADL Tasks, 2-Verbalize Understanding, 3- ImproveStrength/Soren 1=Demonstrate adherence to instructed precautions during ADL tasks. 2=Patient will verbalize/demonstrate understanding of assistive devices/modifications for ADL. 3=Patient will improve strength/tolerance for activity to enable patient to perform ADL's. OT Education/Plan Problem List/Assessment Assessment: Decreased Activ Tolerance, Decreased UE Strength, Dependent Transfers, Impaired Bed Mobility, Impaired Funct Balance, Impaired I ADL's, Impaired Self-Care Skills, Restricted Funct UE ROM Discharge Recommendations Plan/Recommendations: Continue POC Therapy Discharge Recommendati: Post Acute OT Treatment Plan/Plan of Care Treatment,Training & Education: Yes Patient would benefit from OT for education, treatment and training to promote independence in ADL's, mobility, safety and/or upper extremity function for ADL's. Plan of Care: ADL Retraining, Caregiver Training, Functional Mobility, Orthotic Fitting/Training, UE Funct Exercise/Act, UE Neuromus Re-Ed/Coord, W/C Management Training Treatment Duration: Sep 07, 2020 Frequency: 5 times per week Estimated Hrs Per Day: .25 hour per day Agreement: Yes Rehab Potential: Guarded Time/GCodes Start Time: 13:34 Stop Time: 13:50 Total Time Billed (hr/min): 16 Billed Treatment Time 1, LEONIDES YOO OT Sep 04, 2020 15:33
[2020-09-04] MEDS: DICLOFENAC 1% GEL 100 GM (VOLTAREN) TUBE TOP SCH ×2 (15:42→19:49)
[2020-09-04] MEDS: ZOLPIDEM 5 MG (AMBIEN) TAB PO SCH (19:27)
[2020-09-04] MEDS: PIPERACILLIN/TAZOBACTAM (BULK) 4.5 GM in NS (IVPB) 100 ML IV SCH (19:48)
[2020-09-05] MEDS: D5W 1000 ML IV SOLUTION 1,000 ML IV SCH (01:03)
[2020-09-05] MEDS: PIPERACILLIN/TAZOBACTAM (BULK) 4.5 GM in NS (IVPB) 100 ML IV SCH ×2 (02:33→11:36)
[2020-09-05] MEDS: RT-ALBUTEROL/IPRATROPIUM 3 ML (DUONEB) VIAL INH SCH ×3 (02:46→10:42)
[2020-09-05 02:49] LABS: HEMATOCRIT 36 % (40-54); HEMOGLOBIN 11.1 g/dL (13.3-17.7); MEAN CORPUSCULAR HEMOGLOBIN 30 pg (25-34); MEAN CORPUSCULAR HGB CONC 31 g/dL (32-36); MEAN CORPUSCULAR VOLUME 100 fL (80-99); MEAN PLATELET VOLUME 10.7 fL (9.0-12.2); PLATELET COUNT 216 10^3/uL (130-400); WHITE BLOOD COUNT 18.8 10^3/uL (4.3-11.0)
[2020-09-05 03:03] LABS: POTASSIUM 3.8 MMOL/L (3.6-5.0)
[2020-09-05 03:05] LABS: CALCIUM 9.2 MG/DL (8.5-10.1)
[2020-09-05 03:09] LABS: CREATININE SERUM 0.76 MG/DL (0.60-1.30); PHOSPHORUS 2.9 MG/DL (2.3-4.7)
[2020-09-05 03:12] LABS: MAGNESIUM 2.1 MG/DL (1.6-2.4)
[2020-09-05] MEDS: POTASSIUM CL 10MEQ/50ML IVPB 50 ML IV SCH (06:15)
[2020-09-05] MEDS: KCL 20 MEQ TAB (K-DUR) PO SCH (06:15)
[2020-09-05] MEDS: inSUlin ASPART (NovoLOG) 1 UNIT/0.01 ML (CHARGE PER UNIT) SC SCH ×2 (06:15→11:00)
[2020-09-05] MEDS: MAGNESIUM 1 GM/100 ML IVPB 100 ML IV SCH (06:15)
[2020-09-05 06:30] VITALS: BP 145/81
--- NOTE | 2020-09-05 07:15 | Diagnostic Imaging Report ---
Indication: Pneumonia. Comparison with 09/03/2020. FINDINGS: Median sternotomy changes with cardiomegaly again noted. The dense 5 lobe alveolar infiltrates are again present. Overall appearance has not improved. Small bilateral pleural effusion. The right jugular line good position. IMPRESSION: 1. 5 lobe pneumonia dense in nature is again noted without appreciable change since previous exam. Dictated by: Dictated on workstation # [id number]
--- NOTE | 2020-09-05 08:10 | Progress Note ---
Subjective Subjective Date Seen by Provider: Sep 05, 2020 Time Seen by Provider: 08:05 PT IS A 80 Y/O MALE WHO IS KNOWN TO ME FROM CLINIC. 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 PHYSICAL THERAPY STOOD HIM AT THE SIDE OF THE BED YESTERDAY AND HIS OXYGEN DROPPED INTO THE 70'S, HE WAS TAKEN BACK TO BED AND IT TOOK HIM OVER 10 MINUTES TO RECOVER BACK TO 90%. Review of Systems General: No Chills, No Night Sweats; Fatigue, Malaise HEENT: No Head Aches Pulmonary: Dyspnea, Cough; No Pleuritic Chest Pain Cardiovascular: No: Chest Pain, Palpitations Gastrointestinal: No: Nausea, Vomiting Genitourinary: No Dysuria Musculoskeletal: No: other Neurological: Weakness All Other Systems Reviewed All Other Systems Reviewed: Yes Objective Exam Vital Signs Vital Signs Date Time Temp Pulse Resp B/P (MAP) Pulse Ox O2 Delivery O2 Flow Rate FiO2 09/05/20 06:30 87 27 91 65.00 09/05/20 06:00 84 142/79 (100) 92 NIV Bilevel 65.00 09/05/20 05:00 85 26 143/78 (102) 92 NIV Bilevel 65.00 09/05/20 04:00 NIV Bilevel 50 09/05/20 04:00 85 16 144/70 (81) 92 NIV Bilevel 65.00 09/05/20 04:00 36.0 NIV Bilevel 65.00 09/05/20 03:00 86 19 145/79 (95) 93 NIV Bilevel 65.00 09/05/20 02:46 89 31 92 65.00 09/05/20 02:00 84 17 151/84 (94) 93 NIV Bilevel 65.00 09/05/20 01:00 84 09/05/20 01:00 84 18 143/85 (109) 92 NIV Bilevel 65.00 09/05/20 00:00 36.1 NIV Bilevel 65.00 09/05/20 00:00 NIV Bilevel 50 09/05/20 00:00 85 17 148/75 (100) 91 NIV Bilevel 65.00 09/04/20 23:00 84 19 145/88 (106) 90 NIV Bilevel 65.00 09/04/20 22:00 86 18 148/84 (98) 91 NIV Bilevel 50.00 09/04/20 22:00 36.0 NIV Bilevel 65.00 09/04/20 21:35 89 31 92 60.00 09/04/20 21:00 94 NIV Bilevel 50.00 09/04/20 21:00 96 18 144/85 (101) 92 NIV Bilevel 50.00 09/04/20 20:49 36.1 09/04/20 20:00 NIV Bilevel 50 09/04/20 20:00 101 22 132/79 (97) 88 Vapotherm 40.00 100.00 09/04/20 19:00 100 09/04/20 19:00 105 26 144/84 (107) Vapotherm 40.00 100.00 09/04/20 18:09 93 Vapotherm 40.00 100 09/04/20 18:00 91 23 148/89 (108) 94 Vapotherm 40.00 100.00 09/04/20 17:00 95 20 137/75 (95) 92 Vapotherm 40.00 100.00 09/04/20 16:00 89 32 144/81 (102) 90 Vapotherm 40.00 100.00 09/04/20 16:00 Vapotherm 40.00 100 09/04/20 15:28 36.1 09/04/20 15:00 85 32 143/82 (102) 93 Vapotherm 40.00 100.00 09/04/20 14:52 90 Vapotherm 40.00 100 09/04/20 14:00 86 24 128/73 (91) 88 Vapotherm 40.00 100.00 09/04/20 13:00 82 22 145/86 (105) 97 Vapotherm 40.00 100.00 09/04/20 13:00 94 09/04/20 12:46 36.4 09/04/20 12:00 87 28 145/87 (106) 91 Vapotherm 40.00 100.00 09/04/20 12:00 Vapotherm 40.00 100 09/04/20 11:00 89 28 144/84 (104) 92 Vapotherm 40.00 100.00 09/04/20 10:33 93 Vapotherm 40.00 95 09/04/20 10:00 85 143/89 (107) 93 Vapotherm 40.00 100.00 09/04/20 09:00 87 15 141/83 (102) 95 Vapotherm 40.00 100.00 09/04/20 08:40 Vapotherm 40.00 100.00 I & O 09/05/20 07:00 Intake Total 1730 ml Output Total 2450 ml Balance -720 ml General Appearance: WD/WN, Chronically ill, Mild Distress Eyes: Bilateral Eye PERRL, Bilateral Eye EOMI HEENT: PERRL/EOMI, Normal ENT Inspection, Other (DRY MOUTH) Neck: Full Range of Motion Respiratory: Decreased Breath Sounds Cardiovascular: Regular Rate, Rhythm, Systolic Murmur Gastrointestinal: Normal Bowel Sounds, Non Tender, Soft Extremity: Non Tender, No Calf Tenderness, No Pedal Edema Neurologic/Psychiatric: Alert, Oriented x3, Normal Mood/Affect Skin: Normal Color, Warm/Dry Lymphatic: No Adenopathy Results Lab Laboratory Tests 09/04/20 10:10: White Blood Count 20.0H, Red Blood Count 3.75L, Hemoglobin 11.4L, Hematocrit 37L , Mean Corpuscular Volume 100H, Mean Corpuscular Hemoglobin 30, Mean Corpuscular Hemoglobin Concent 31L, Red Cell Distribution Width 16.8H, Platelet Count 223, M patricia Platelet Volume 10.6 09/04/20 10:55: Glucometer 115H 09/04/20 15:31: Glucometer 122H 09/04/20 20:41: Glucometer 93 09/05/20 02:42: White Blood Count 18.8H, Red Blood Count 3.65L, Hemoglobin 11.1L, Hematocrit 36L , Mean Corpuscular Volume 100H, Mean Corpuscular Hemoglobin 30, Mean Corpuscular Hemoglobin Concent 31L, Red Cell Distribution Width 16.5H, Platelet Count 216, Mean Platelet Volume 10.7, Sodium Level 146H, Potassium Level 3.8, Chloride Level 114H, Carbon Dioxide Level 22, Anion Gap 10, Blood Urea Nitrogen 18, Creatinine 0.76, Estimat Glomerular Filtration Rate 99, BUN/Creatinine Ratio 24, Glucose Level 130H, Calcium Level 9.2, Phosphorus Level 2.9, Magnesium Level 2.1 Microbiology 08/26/20 Gram Stain - Final, Complete 08/26/20 Sputum Culture - Final, Complete Pseudomonas aeruginosa Usual upper respiratory tristan 7/15/21 Blood Culture - Final, Complete No growth Assessment/Plan Assessment/Plan Admission Dx ACUTE RESPIRATORY FAILURE MULTILOBAR PNEUMONIA SEVERE EMPHYSEMA INTERSTITIAL LUNG DISEASE SUPRAVENTRICULAR TACHYCARDIA HX OF PAROXYSMAL ATRIAL FIBRILLATION LEUKOCYTOSIS Assessment and Plan ACUTE RESPIRATORY FAILURE MULTILOBAR PNEUMONIA 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
[2020-09-05] MEDS: APIXABAN 5 MG (ELIQUIS) TABLET PO SCH (08:41)
[2020-09-05] MEDS: DIGOXIN 0.25 MG (LANOXIN) TAB PO SCH (08:42)
[2020-09-05] MEDS: DRONEDARONE TABLET 400 MG TABLET PO SCH (08:42)
[2020-09-05] MEDS ORDERED: predniSONE 20 MG TAB PO SCH (09:00)
[2020-09-05] MEDS: PANTOPRAZOLE 40 MG (PROTONIX) VIAL IV SCH (09:33)
[2020-09-05] MEDS: acetaZOLAMIDE INJ 500 MG/5 ML (DIAMOX) VIAL IV SCH (09:34)
[2020-09-05] MEDS: DICLOFENAC 1% GEL 100 GM (VOLTAREN) TUBE TOP SCH ×2 (09:34→11:36)
[2020-09-05] MEDS: morphine INJ 4 MG/ML 1 ML (VIAL/SYRINGE) IVP PRN (09:44)
[2020-09-05] MEDS ORDERED: dilTIAZem DRIP PRE-MIX 125 ML IV SCH (09:45)
--- NOTE | 2020-09-05 10:41 | Tele-ICU Progress Note ---
Subjective Date Seen by a Provider: Sep 05, 2020 Time Seen by a Provider: 10:40 Sepsis Event Evaluation Height, Weight, BMI Height: 5'11.00" Weight: 251lbs. 0.8oz. 112.749299hi; 30.77 BMI Method:Stated Exam Exam Patient acknowledged, consented, and participated in this virtual visit which was conducted using real time audio/video Vital Signs Date Time Temp Pulse Resp B/P (MAP) Pulse Ox O2 Delivery O2 Flow Rate FiO2 09/05/20 10:00 86 16 148/79 (102) 94 NIV Bilevel 65.00 09/05/20 09:00 108 25 152/91 (111) 94 NIV Bilevel 65.00 09/05/20 08:00 36.5 09/05/20 08:00 92 50 150/80 (103) 92 NIV Bilevel 65.00 09/05/20 07:00 93 26 146/78 (100) 92 NIV Bilevel 65.00 09/05/20 06:30 87 27 91 65.00 09/05/20 06:23 88 09/05/20 06:00 84 142/79 (100) 92 NIV Bilevel 65.00 09/05/20 05:00 85 26 143/78 (102) 92 NIV Bilevel 65.00 09/05/20 04:00 NIV Bilevel 50 09/05/20 04:00 85 16 144/70 (81) 92 NIV Bilevel 65.00 09/05/20 04:00 36.0 NIV Bilevel 65.00 09/05/20 03:00 86 19 145/79 (95) 93 NIV Bilevel 65.00 09/05/20 02:46 89 31 92 65.00 09/05/20 02:00 84 17 151/84 (94) 93 NIV Bilevel 65.00 09/05/20 01:00 84 09/05/20 01:00 84 18 143/85 (109) 92 NIV Bilevel 65.00 09/05/20 00:00 36.1 NIV Bilevel 65.00 09/05/20 00:00 NIV Bilevel 50 09/05/20 00:00 85 17 148/75 (100) 91 NIV Bilevel 65.00 09/04/20 23:00 84 19 145/88 (106) 90 NIV Bilevel 65.00 7/27/21 22:00 86 18 148/84 (98) 91 NIV Bilevel 50.00 09/04/20 22:00 36.0 NIV Bilevel 65.00 09/04/20 21:35 89 31 92 60.00 09/04/20 21:00 94 NIV Bilevel 50.00 09/04/20 21:00 96 18 144/85 (101) 92 NIV Bilevel 50.00 09/04/20 20:49 36.1 09/04/20 20:00 NIV Bilevel 50 09/04/20 20:00 101 22 132/79 (97) 88 Vapotherm 40.00 100.00 09/04/20 19:00 100 09/04/20 19:00 105 26 144/84 (107) Vapotherm 40.00 100.00 09/04/20 18:09 93 Vapotherm 40.00 100 09/04/20 18:00 91 23 148/89 (108) 94 Vapotherm 40.00 100.00 09/04/20 17:00 95 20 137/75 (95) 92 Vapotherm 40.00 100.00 09/04/20 16:00 89 32 144/81 (102) 90 Vapotherm 40.00 100.00 09/04/20 16:00 Vapotherm 40.00 100 09/04/20 15:28 36.1 09/04/20 15:00 85 32 143/82 (102) 93 Vapotherm 40.00 100.00 09/04/20 14:52 90 Vapotherm 40.00 100 09/04/20 14:00 86 24 128/73 (91) 88 Vapotherm 40.00 100.00 09/04/20 13:00 82 22 145/86 (105) 97 Vapotherm 40.00 100.00 09/04/20 13:00 94 09/04/20 12:46 36.4 09/04/20 12:00 87 28 145/87 (106) 91 Vapotherm 40.00 100.00 09/04/20 12:00 Vapotherm 40.00 100 09/04/20 11:00 89 28 144/84 (104) 92 Vapotherm 40.00 100.00 I & O 09/05/20 07:00 Intake Total 1730 ml Output Total 2450 ml Balance -720 ml Height & Weight Height: 5'11.00" Weight: 251lbs. 0.8oz. 112.035663il; 30.77 BMI Method:Stated General Appearance: WD/WN, Chronically ill, Mild Distress HEENT: PERRL/EOMI, Normal ENT Inspection, Other (DRY MOUTH) Neck: Full Range of Motion Respiratory: Decreased Breath Sounds Cardiovascular: Regular Rate, Rhythm, Systolic Murmur Capillary Refill: Less Than 3 Seconds Gastrointestinal: normal bowel sounds, soft Extremity: Non Tender, No Calf Tenderness, No Pedal Edema Neurologic/Psychiatric: Alert, Oriented x3, Normal Mood/Affect Skin: Normal Color, Warm/Dry Lymphatic: No Adenopathy Results Lab Laboratory Tests 09/04/20 02:59 09/04/20 10:10 09/05/20 02:42 Assessment/Plan Assessment/Plan (Tele-ICU Physician , Progress Note ) Available chart/ vitals / labs / Images reviewed , discussed Video assessment done using teleICU camera Events overnight : Afebrile hemodynamically stable, no pressors, I/O =neg 1400 Drips: d5W As per RN exam : Consultants: cards Hospital course: 08/23 WITH SOB AND HEMOPTYSIS AND HYPOXIC ON CHRONIC 6L o2- > bipap 24/07 50% 08/24 intubated - 500, FiO2 40%, respiratory rate 25 and a PEEP of 8. 08/27 - AC 25 - 500 - 35 % FiO2 with a PEEP of 8 pap 35 08/28- fio2 80 % with cough 08/29 - extubated 08/30 -on Bipap 22/11 rr 38 60% 08/31 VAPOTHERM 40 l 70 % 08/31 - AFIB RVR 09/03 - DNR, refusing BIPAP, Vapotherm 40L 90% 09/04 - agreed for nocturnal BIPAP , tolerates 09/05 - on bIPAP 65% A/P Acute on chronic resp failure- hypoxic and hypercarbic respiratory failure secondary to underlying emphysema, ILD and possibly superimposed pneumonia - extubated 08/30, on BIPAP 09/05 - more confused and with increased WOB - will cont on BIPAP - DIURESIS now ( monitor with PULM HTN PNA - sputum + for PSA - stop vanco ( 5d ) TODAY LAST DAY OF cefepime 08/30 - covis swab (-)ve - 09/03 - rising WBC , cxr same 09/04 - started on zosyn shock - off levo - stress dose steroids SC 50 q 8 COPD - last CT chest 06/2020 with severe emphysematous changes upper lobes , chronic plural scarring , some fibrotic changes - on chronic prednisone Severe pulm HTN , most likely due to lung DZ , RVSP 65mm Hg by ECHO - on sildenafil on hold now , monitor volume status carefully , Hemoptysis - due to combination of infection and coagulopathy in face of pHTN - monitor - minimal now - eLIQUIS RESUMED 09.03 Anemia stable ECHO 12/2019 - EF 55%, PAF , s/p ablation/ cardioversion - A fib RVR 08/31 - sinus now -- RESUMING AC ELIQUIS 09/04 DM - ISS , as per PCP elv NA low glucose and high NA - start d5w Lines R IJ : , (Central Line Necessity Reviewed) Vivas: + OG: + Nutrition: TF Analgesia: NA Anxiety/ delirium VTE Prophylaxis: starting 08/27 Stress Ulcer Prophylaxis: ppi Glycemic Control: + Plans in collaboration with bedside consultants and IM MDs. Discussed with RN to reach out if any questions or concerns A total of 28 minutes of critical care time was devoted to this patient today, required to treat and/or prevent further deterioration of critical care cond ition ( as above CASSIA WEST MD Sep 05, 2020 10:41
[2020-09-05 10:42] VITALS: BP 156/82
--- NOTE | 2020-09-05 11:07 | Physical Therapy Progress Note ---
Therapy Progress Note Patient on hold today per nursing, will check back in the morning. JODI HIGGINBOTHAM PT Sep 05, 2020 11:07
[2020-09-05] MEDS ORDERED: LORazepam INJ 2 MG/ML (ATIVAN) VIAL IVP PRN ×2 (11:30→12:00)
[2020-09-05] MEDS ORDERED: morphine INJ 4 MG/ML 1 ML (VIAL/SYRINGE) IVP PRN (12:00)
[2020-09-05] MEDS ORDERED: LORazepam INJ 2 MG/ML (ATIVAN) VIAL ONE (12:01)
--- NOTE | 2020-09-05 12:10 | Occ Therapy Progress Note ---
Therapy Progress Note Per PT, pt. on hold due to medical status. Will continue to monitor pt. [id number] LEONIDES GARCIA OT Sep 05, 2020 12:10
--- NOTE | 2020-09-05 12:46 | Discharge Summary ---
Discharge Summary Date of Admission Aug 23, 2020 at 16:35 Date of Discharge 09/05/20 Discharge Date: Sep 05, 2020 Discharge Time: 12:20 Admission Diagnosis ACUTE RESPIRATORY FAILURE MULTILOBAR PNEUMONIA SEVERE EMPHYSEMA INTERSTITIAL LUNG DISEASE SUPRAVENTRICULAR TACHYCARDIA HX OF PAROXYSMAL ATRIAL FIBRILLATION LEUKOCYTOSIS HYPERNATREMIA Consults/Procedures Consulations cardiology pulmonology Eicu Comfort Measures/ End of Life Care: Comfort Measures Advance Care discuss with: patient, family member (s) Plan: identified end-of-life goals Cardiopulmonary Arrest: Cardiorespiratory Arrest Date of : Sep 05, 2020 Time of : 12:20 Discharge Diagnosis CARDIORESPIRATORY ARREST ACUTE RESPIRATORY FAILURE MULTILOBAR PNEUMONIA SEVERE EMPHYSEMA INTERSTITIAL LUNG DISEASE SUPRAVENTRICULAR TACHYCARDIA HX OF PAROXYSMAL ATRIAL FIBRILLATION LEUKOCYTOSIS HYPERNATREMIA (1) Acute and chronic respiratory failure with hypoxia Status: Acute (2) COPD exacerbation (3) Paroxysmal atrial fibrillation (4) Steroid-dependent COPD (5) Hypernatremia REJI GIBBS MD Sep 05, 2020 12:46
[2020-09-05] MEDS ORDERED: HYDROCORTISONE 100 MG/2 ML (Solu-CORTEF) VIAL IV SCH (14:00)
--- NOTE | 2020-09-05 17:48 | Progress Note - Cardiology ---
Cardiology SOAP Progress Note Subjective: More short of breath today On BiPAP at time of my exam, not able to communicate Objective: I&O/Vital Signs 09/05/20 09/05/20 09/05/20 09/05/20 06:00 06:23 06:30 07:00 Pulse 84 88 87 93 Resp 27 26 B/P (MAP) 142/79 (100) 146/78 (100) Pulse Ox 92 91 92 O2 Delivery NIV Bilevel NIV Bilevel O2 Flow Rate 65.00 65.00 65.00 09/05/20 09/05/20 09/05/20 09/05/20 08:00 08:00 08:00 09:00 Temp 36.5 Pulse 92 108 Resp 50 25 B/P (MAP) 150/80 (103) 152/91 (111) Pulse Ox 92 94 O2 Delivery NIV Bilevel NIV Bilevel NIV Bilevel O2 Flow Rate 65.00 65.00 FiO2 75 09/05/20 09/05/20 09/05/20 10:00 10:42 11:25 Temp 36.7 Pulse 86 88 Resp 16 22 B/P (MAP) 148/79 (102) Pulse Ox 94 93 O2 Delivery NIV Bilevel O2 Flow Rate 65.00 75.00 09/05/20 00:00 Intake Total 550 ml Output Total 925 ml Balance -375 ml Weight (Pounds): 251 Weight (Ounces): 0.8 Weight (Calculated Kilograms): 112.973199 Constitutional: other (thin-appearing, orientation could not be determined today because was unable to communicate) Respiratory: No accessory muscle use; other (Fair, bilat air entry, diminished at the bases; prolonged exp; scattered rhonchi and coarse crackles) Cardiovascular: irregularly irregular, S1 and S2, systolic murmur (soft BALTAZAR at card base) Gastrointestional: No tender; soft; No guarding, No rebound; audible bowel sounds Extremities: No clubbing, No cyanosis, No significant edema Neurologic/Psychiatric: other (moves all limbs equally, orientation could not be determined today because was unable to communicate) Skin: warm/dry; No rash on exposed areas, No ulcerations on exposed areas Results/Procedures: Labs Laboratory Tests 09/04/20 20:41: Glucometer 93 09/05/20 02:42: White Blood Count 18.8H, Red Blood Count 3.65L, Hemoglobin 11.1L, Hematocrit 36L , Mean Corpuscular Volume 100H, Mean Corpuscular Hemoglobin 30, Mean Corpuscular Hemoglobin Concent 31L, Red Cell Distribution Width 16.5H, Platelet Count 216, Mean Platelet Volume 10.7, Sodium Level 146H, Potassium Level 3.8, Chloride Level 114H, Carbon Dioxide Level 22, Anion Gap 10, Blood Urea Nitrogen 18, Creatinine 0.76, Estimat Glomerular Filtration Rate 99, BUN/Creatinine Ratio 24, Glucose Level 130H, Calcium Level 9.2, Phosphorus Level 2.9, Magnesium Level 2.1 09/05/20 11:06: Glucometer 107 Microbiology 08/26/20 Gram Stain - Final, Complete 08/26/20 Sputum Culture - Final, Complete Pseudomonas aeruginosa Usual upper respiratory tristan 08/23/20 Blood Culture - Final, Complete No growth Laboratory Tests 09/04/20 02:59 09/04/20 10:10 09/05/20 02:42 A/P: Assessment: Ac respiratory failure, admitted on 08-23-20, clinical worsening of respiration on 09/05/20 (compared to 09/03 and 09/04) Pulmonary disease, including ILD and emphysema and h/o sleep apnea (treated with CPAP), associated with pulm htn - Echo of 12/26/19: LVEF 55-65%, mild to mod LA enlargement, mild MS with valve area appprox 1.6 sq cm, mod to sev TR, PASP 60-65 mmHg History of mitral valve repair with annuloplasty ring placement done [place] [address] Dean, - last echocardiogram was done in December [address] Nur (see above) Paroxysmal atrial fibrillation with RVR. - Had ablation done in April [address] Pratt, had episode of atrial flutter with rapid ventricular response, electrical cardioversion in December 2019, went back to atrial flutter which appeared to be at left atrial origin with 2-1 conduction. - maintained on Multaq as an outpatient - History of intolerance to amiodarone with his underlying lung condition - intolerance to higher dose of sotalol with prolonged QT interval - started back on Multaq and Cardizem - [id number] score is 3, yearly risk of stroke without oral anticoagulation is 3.2 percent - Prior to hospital admission had been on Xarelto for stroke prophylaxis - currently not taking Transient episode of nonsustained ventricular tachycardia occurred in the preoperative area in [facility] on November 01, 2014, evaluated by his own traffic investigator Dr. Ibrahim at [facility], had ablation with Dr Pratt in April 2019 Hypertension Hyperlipidemia Hemochromatosis- followed by Dr. Lynn. History of heart catheterization done in 2009 and reported to have no significant obstructive disease in his coronaries Diabetes mellitus, controlled by diet, followed and managed by primary care physician Sjogern syndrome, fibromyalgia, spinal stenosis, osteoporosis, osteoarthritis, left elbow ulnar nerve release, carpal tunnel release, bilateral inguinal hernia repair Nonobstructive carotid artery stenosis-most recent carotid duplex done January [address] Nur Plan: * Unable to take oral meds * iv dilt for vent rate control. Recommend enoxaparin for stroke prophylaxis if approved by the Med svce * Discussed with Dr Pruitt Clinical Quality Measures Type of Care: Type of Care: Comfort Measures ENE NEAL MD FACP FAC CCDS Sep 05, 2020 17:48
== END 2020-09-05 14:40 | disposition expired | DRG 207 ==
LOC: EDUNIT# 14:27 → ER 14:29 → ICU 16:35
PROVIDERS: ADMIT Family Medicine; ATTEND Family Medicine
PROC: 5A1955Z Respiratory Ventilation, Greater than 96 Consecutive Hours (ICD-10-PCS; principal; 2020-08-23)
PROC: 0BH17EZ Insertion of Endotracheal Airway into Trachea, Via Natural or Artificial Opening (ICD-10-PCS; 2020-08-23)
PROC: 02HV33Z Insertion of Infusion Device into Superior Vena Cava, Percutaneous Approach (ICD-10-PCS; 2020-08-24)
PROC: 5A09557 Assistance with Respiratory Ventilation, Greater than 96 Consecutive Hours, Continuous Positive Airway Pressure (ICD-10-PCS; 2020-08-29)
DX: J18.9 Pneumonia, unspecified organism (principal); J96.21 Acute and chronic respiratory failure with hypoxia; E27.40 Unspecified adrenocortical insufficiency; E87.0 Hyperosmolality and hypernatremia; I47.1 Supraventricular tachycardia; E87.2 Acidosis; J44.0 Chronic obstructive pulmonary disease with (acute) lower respiratory infection; Z66 Do not resuscitate; J98.2 Interstitial emphysema; I10 Essential (primary) hypertension; G43.909 Migraine, unspecified, not intractable, without status migrainosus; K21.9 Gastro-esophageal reflux disease without esophagitis; M19.90 Unspecified osteoarthritis, unspecified site; Z20.822 Contact with and (suspected) exposure to COVID-19; M79.7 Fibromyalgia; G89.29 Other chronic pain; M54.9 Dorsalgia, unspecified; E11.9 Type 2 diabetes mellitus without complications; I27.20 Pulmonary hypertension, unspecified; I46.9 Cardiac arrest, cause unspecified; I48.0 Paroxysmal atrial fibrillation; I95.9 Hypotension, unspecified; T38.0X5A Adverse effect of glucocorticoids and synthetic analogues, initial encounter; D64.9 Anemia, unspecified; G47.00 Insomnia, unspecified; I87.2 Venous insufficiency (chronic) (peripheral); R57.8 Other shock; E78.5 Hyperlipidemia, unspecified; E83.119 Hemochromatosis, unspecified; M35.00 Sjogren syndrome, unspecified; D72.829 Elevated white blood cell count, unspecified; M81.0 Age-related osteoporosis without current pathological fracture; M48.00 Spinal stenosis, site unspecified; I65.29 Occlusion and stenosis of unspecified carotid artery; Z87.891 Personal history of nicotine dependence; Z79.01 Long term (current) use of anticoagulants; Z79.899 Other long term (current) drug therapy
CPT/HCPCS: 36415; 71045; 80048; 80053; 80162; 80202; 82550; 82553; 82728; 82800; 82805; 82947; 83605; 83735; 83880; 84100; 84145; 84478; 84484; 85007; 85025; 85027; 85379; 85610; 86141; 87040; 87070; 87077; 87186; 87205; 87636; 93005; 94002; 94003; 94640; 94660; 94799; 96374; 96375

== ENCOUNTER → 2020-08-23 | Outpatient (CLI) | payer MEDICARE ==
[~2020-08-23] MED LIST changes: +DIGO125T3 PO; +FLUT1BLS3 IH; +PROPOFOL DRIP (ICU) 100 ML IV SCH
[2020-08-23 13:56] LABS: ABG BASE EXCESS -3.7 MMOL/L (-2.5-2.5); ABG OXYGEN SATURATION 85 % (94-100); ABG PCO2 36 MMHG (35-45); ABG PH 7.37 (7.37-7.43); ABG PO2 61 MMHG (79-93)
[2020-08-23 13:57] LABS: ALLENS TEST POSITIVE; INSPIRED O2 10 L; PATIENT TEMP 97.2; VENTILATOR NO
--- NOTE | 2020-08-24 05:17 | Anesthesia-Procedure Note ---
Procedures/Interventions Procedure Start/Stop/Diagnosis Date of Procedure: Aug 24, 2020 Start Time: 04:40 Referring Physician: DR. MONTSE MEDINA Stop Time: 05:10 Central Line/IV Access IV : Location: Left Site: Hand IV Catheter Type: Peripheral IV IV Catheter Gauge: 20 Progress ATTEMPTS X 1 Procedure Conclusion FLUSH EASILY. OPSITE PLACED, Intubation Reason Intubation/Diagnosis: RESP FAILURE RSI: Yes Vital Signs Pre-procedure SAT 85% 100% pre-Ox, [id number]: Yes Intubation Method: orotracheal Berry (size used 0-4): 3 Grade View: 2 Medications: Etomidate (10), Rocuronium (50), Succinylcholine (100) Mask Ventilation: positive Positive End Tide CO2: Yes Breath Sounds after Intubation: bilateral-equal ETT Securred @ (cm): 22 Intubated with ease: Yes Intubation Complications: no complications, O2 saturation decreased (65%) Post Procedure INTUBATED WITH EASE. NO COMPLICATIONS NOTED. TUBE SECURED BY RT. Care turned over to: VINYL INSTALLER'S Arterial Line Arterial Line Catheter: 20G Type: Radial Location: Left Procedure: prepped, draped in sterile fashion, good wave-form was obtained, patient tolerated procedure well, no immediate complications, post procedure area cleaned, post procedure dressing applied FORTINO FELDMAN CRNA Aug 24, 2020 05:17
--- NOTE | 2020-08-24 05:50 | Tele-ICU Progress Note ---
Subjective Date Seen by a Provider: Aug 24, 2020 Time Seen by a Provider: 05:48 Subjective/Events-last exam pt took off BiPAP to go to washroom and became extremely hypoxic, with SpO2 dropping into 30's, after BiPAP mask put back on SpO2 only went into mid 30's, with spont RR in 40's for this reason pt was electively intubated Sepsis Event Evaluation Height, Weight, BMI Height: 5'11.00" Weight: 251lbs. 0.8oz. 112.514495er; 29.00 BMI Method:Stated Exam Exam Patient acknowledged, consented, and participated in this virtual visit which was conducted using real time audio/video Height & Weight Height: 5'11.00" Weight: 251lbs. 0.8oz. 112.144438rp; 29.00 BMI Method:Stated General Appearance: Severe Distress Respiratory: Respiratory Distress, Wheezing Assessment/Plan Assessment/Plan needs to be intubated, is DNR but will allow intubation if needed, procedure was explained to him Critical Care: Critically Ill Patient Time spent with patient (mins): 30 RENAY GERMAN MD Aug 24, 2020 05:50
== END ==
LOC: LAB 14:02
PROVIDERS: ATTEND Nurse Practitioner Family
DX: Z13.83 Encounter for screening for respiratory disorder NEC (principal); R06.00 Dyspnea, unspecified
CPT/HCPCS: 82805